=== PATIENT | male | born 1945 | race Caucasian/White ===

== ENCOUNTER 2020-03-30 06:39 | Outpatient (REF) | payer MEDICARE, SELFPAY ==
[2020-03-30 11:31] LABS: MANUAL DIFF FLAG NO
[2020-03-30 11:44] LABS: Basophils Absolute Auto 0.1 X10*3/uL (0.0-0.2); Basophils Percent Auto 1.9 % (0-2); Eosinophils Absolute Auto 0.5 X10*3/uL (0.0-0.4); Eosinophils Percent Auto 8.8 % (0-4); Hemoglobin 15.4 g/dl (14.0-18.0); Imm Gran Abs Auto 0.02 X10*3/uL (0.00-0.03); Imm Gran Pct Auto 0.3 % (0.0-0.4); Lymphocytes Absolute Auto 1.5 X10*3/uL (1.2-4.9); Mean Corpuscular HGB Conc 32.8 g/dl (31.0-36.0); Mean Corpuscular Volume 88.5 fL (80-98); Mean Platelet Volume 9.6 fL (9.4-12.4); Monocytes Absolute Auto 0.7 X10*3/uL (0.1-1.2); Monocytes Percent Auto 11.4 % (2-11); Neutrophils Percent Auto 51.6 % (45-73); Platelet Count 245 X10*3/uL (160-400); Red Blood Count 5.31 X10*6/uL (4.60-5.80); Red Cell Distribution Width 13.3 % (11.0-16.0); White Blood Count 5.8 X10*3/uL (4.8-10.8)
[2020-03-30 11:52] LABS: Estimated Average Glucose 120 mg/dL; Hemoglobin A1c % 5.8 %
[2020-03-30 11:53] LABS: Alanine Aminotransferase 22 U/L (0-40); Anion Gap 16 (12-20); Aspartate Amino Transferase 23 U/L (5-37); Blood Urea Nitrogen 28 mg/dL (9-16); Calcium 8.9 mg/dL (8.4-10.2); Carbon Dioxide 28 mmol/L (22-29); Chloride 98 mmol/L (96-108); Cholesterol 158 mg/dL; Estimated Glomerular Filt Rate 55; Glucose Fasting 94 mg/dL (60-99); HDL Cholesterol 49 mg/dL; LDL Cholesterol Calculated 73 mg/dl; Potassium 4.6 mmol/l (3.3-5.1); Sodium 137 mmol/L (135-145); Triglycerides 183 mg/dL
[2020-03-30 12:02] LABS: Glucose Urine UA NEG (NEG); Leukocyte Esterase Urine NEG (NEG); Nitrite Urine NEG (NEG); Specific Gravity - Urine 1.025 (1.005-1.025); Urine Blood NEG (NEG); Urine Ketones NEG (NEG); Urine Protein NEG (NEG-TRACE)
[2020-03-30 12:07] LABS: Appearance Urine CLEAR; Color Urine YELLOW; UACC CULT NO
[2020-03-30 12:13] LABS: Albumin Level 4.3 g/dL (3.5-5.0); Magnesium 2.1 mg/dL (1.6-2.6)
[2020-03-30 12:15] LABS: Vitamin D 25-OH Total 100.4 ng/mL (>30)
[2020-03-30 12:38] LABS: RBC Urine 0 /HPF (0); WBC Urine 0 /HPF (0-4)
[2020-03-30 12:40] LABS: Creatinine Urine 85.37 mg/dL; Creatinine Urine 85.83 mg/dL; Microalbumin Urine < 5.0 mg/L; Total Protein Urine Random < 7 mg/dL (<12)
[2020-03-30 14:19] LABS: Renal w Reflex Lab Use Only Order verified
[2020-03-30 14:27] LABS: Phosphorus 4.3 mg/dL (2.7-4.5)
[2020-03-31 17:52] LABS: Calcium (PTHI) 9.5 mg/dL (8.6-10.3); PTHI 18 pg/mL (14-64)
== END 2020-03-30 06:40 | disposition home or self-care (01) ==
LOC: HO.HMGCLDS 06:39
PROVIDERS: PCP Internal Medicine; Visit Provider Internal Medicine Nephrology
DX: E78.5 Hyperlipidemia, unspecified (principal); E66.09 Other obesity due to excess calories; Z68.30 Body mass index [BMI] 30.0-30.9, adult; E11.22 Type 2 diabetes mellitus with diabetic chronic kidney disease; I12.9 Hypertensive chronic kidney disease with stage 1 through stage 4 chronic kidney disease, or unspecified chronic kidney disease; N18.2 Chronic kidney disease, stage 2 (mild)
CPT/HCPCS: 36415; 80048; 80061; 81001; 82040; 82043; 82306; 83036; 83735; 83970; 84100; 84156; 84450; 84460; 85025

== ENCOUNTER 2020-10-26 06:26 | Outpatient (REF) | payer MEDICARE, SELFPAY ==
[2020-10-26 11:28] LABS: MANUAL DIFF FLAG NO
[2020-10-26 11:43] LABS: Basophils Absolute Auto 0.1 X10*3/uL (0.0-0.2); Basophils Percent Auto 1.6 % (0-2); Eosinophils Absolute Auto 0.2 X10*3/uL (0.0-0.4); Eosinophils Percent Auto 4.2 % (0-4); Hematocrit 44.6 % (42-52); Hemoglobin 14.6 g/dl (14.0-18.0); Imm Gran Abs Auto 0.04 X10*3/uL (0.00-0.03); Imm Gran Pct Auto 0.7 % (0.0-0.4); Lymphocytes Absolute Auto 1.8 X10*3/uL (1.2-4.9); Lymphocytes Percent Auto 31.8 % (20-40); Mean Corpuscular HGB Conc 32.7 g/dl (31.0-36.0); Mean Corpuscular Hemoglobin 29.4 pg (27.0-33.0); Mean Corpuscular Volume 89.7 fL (80-98); Mean Platelet Volume 9.7 fL (9.4-12.4); Monocytes Absolute Auto 0.7 X10*3/uL (0.1-1.2); Monocytes Percent Auto 12.9 % (2-11); Neutrophils Absolute Auto 2.8 X10*3/uL (2.0-8.3); Neutrophils Percent Auto 48.8 % (45-73); Platelet Count 284 X10*3/uL (160-400); Red Blood Count 4.97 X10*6/uL (4.60-5.80); Red Cell Distribution Width 13.5 % (11.0-16.0); White Blood Count 5.7 X10*3/uL (4.8-10.8)
[2020-10-26 12:12] LABS: Alanine Aminotransferase 34 U/L (0-40); Anion Gap 17 (12-20); Aspartate Amino Transferase 29 U/L (5-37); Blood Urea Nitrogen 22 mg/dL (9-16); Calcium 9.7 mg/dL (8.4-10.2); Carbon Dioxide 27 mmol/L (22-29); Chloride 99 mmol/L (96-108); Cholesterol 168 mg/dL; Estimated Glomerular Filt Rate > 60; Glucose Fasting 143 mg/dL (60-99); HDL Cholesterol 53 mg/dL; LDL Cholesterol Calculated 83 mg/dl; Potassium 4.7 mmol/L (3.3-5.1); Sodium 138 mmol/L (135-145); Triglycerides 161 mg/dL
[2020-10-26 12:31] LABS: Estimated Average Glucose 160 mg/dL; Hemoglobin A1c % 7.2 %
[2020-10-26 12:37] LABS: Creatinine Urine 104.61 mg/dL; Microalbum/Creatinine Ratio Ur 4.7 ug/mg cr
== END 2020-10-26 06:27 | disposition home or self-care (01) ==
LOC: HO.HMGCLDS 06:26
PROVIDERS: PCP Internal Medicine; Visit Provider Internal Medicine
DX: E11.9 Type 2 diabetes mellitus without complications (principal); I10 Essential (primary) hypertension; E78.5 Hyperlipidemia, unspecified
CPT/HCPCS: 36415; 80048; 80061; 82043; 83036; 84450; 84460; 85025

== ENCOUNTER 2021-05-10 06:58 | Outpatient (REF) | payer MEDICARE, SELFPAY ==
[2021-05-10 12:07] LABS: Alanine Aminotransferase 36 U/L (0-40); Anion Gap 15 (12-20); Aspartate Amino Transferase 33 U/L (5-37); Blood Urea Nitrogen 25 mg/dL (9-16); Calcium 9.7 mg/dL (8.4-10.2); Carbon Dioxide 28 mmol/L (22-29); Chloride 99 mmol/L (96-108); Cholesterol 164 mg/dL; Estimated Glomerular Filt Rate > 60; Glucose Fasting 106 mg/dL (60-99); HDL Cholesterol 51 mg/dL; LDL Cholesterol Calculated 83 mg/dl; Potassium 4.6 mmol/L (3.3-5.1); Sodium 137 mmol/L (135-145); Triglycerides 150 mg/dL
[2021-05-10 12:12] LABS: Estimated Average Glucose 157 mg/dL; Hemoglobin A1c % 7.1 %
[2021-05-10 12:24] LABS: Creatinine Urine 43.63 mg/dL; Microalbumin Urine < 5.0 mg/L
== END 2021-05-10 06:59 | disposition home or self-care (01) ==
LOC: HO.HMGCLDS 06:58
PROVIDERS: PCP Internal Medicine; Visit Provider Internal Medicine
DX: E11.9 Type 2 diabetes mellitus without complications (principal); E78.5 Hyperlipidemia, unspecified; I10 Essential (primary) hypertension
CPT/HCPCS: 36415; 80048; 80061; 82043; 83036; 84450; 84460

== ENCOUNTER 2021-08-16 06:54 | Outpatient (REF) | payer MEDICARE, SELFPAY ==
[2021-08-16 11:56] LABS: Alanine Aminotransferase 30 U/L (0-40); Anion Gap 16 (12-20); Aspartate Amino Transferase 28 U/L (5-37); Blood Urea Nitrogen 29 mg/dL (9-16); Calcium 9.7 mg/dL (8.4-10.2); Carbon Dioxide 25 mmol/L (22-29); Chloride 99 mmol/L (96-108); Cholesterol 152 mg/dL; Estimated Glomerular Filt Rate > 60; Glucose Fasting 128 mg/dL (60-99); HDL Cholesterol 54 mg/dL; LDL Cholesterol Calculated 76 mg/dl; Potassium 4.5 mmol/L (3.3-5.1); Sodium 135 mmol/L (135-145); Triglycerides 114 mg/dL
[2021-08-16 12:32] LABS: Microalbum/Creatinine Ratio Ur 11.9 ug/mg cr
== END 2021-08-16 06:55 | disposition home or self-care (01) ==
LOC: HO.HMGCLDS 06:54
PROVIDERS: Visit Provider Internal Medicine
DX: E78.5 Hyperlipidemia, unspecified (principal); I10 Essential (primary) hypertension; E11.9 Type 2 diabetes mellitus without complications
CPT/HCPCS: 36415; 80048; 80061; 82043; 84450; 84460

== ENCOUNTER 2021-10-14 15:00 | Outpatient (RCR) | payer MEDICARE, SELFPAY ==
--- NOTE | 2021-09-09 08:44 | MHC.PT.EP ---
[facility] [place] Office [place] Office [place] Office [address] Brayan Horan [address] [phone] F: [phone] F: [phone] F: [phone] F: [phone] Physical Therapy Plan of Care Date of Evaluation: Date of Surgery: Diagnosis: L thigh pain Assessment: Pt is a 76 y/o male who reports about 2 years of posterior l thigh pain is referred to PT for eval and treat of L posterior thigh strain of tenon, fascia or muscle resulting in decreased tolerance for ambulating, squatting, performing heavy HH chores, negotiating stairs and standing for duration secondary to increased hamstring muscle tissue tension, gait abnormality, painful L knee flexion manual muscle test, TTP of proximal medial HS group, possible detrimental exercise habit of extreme weight training of injured tissues (Pt reports single limb leg press of 260lbs), and pain. Pt is deemed an appropriate candidate to receive skilled PT in order to address his physical limitations to improve his functional ability. Frequency and Duration: The patient will be seen 2 x/ wk x 5 wks. Short Term Goals: Initiate HEP with evidence of compliance. Improve pain with ambulation to < 3/10 with ambulation; initial 5/10. Group Home Goals: I with HEP. Pt will be able to walk 2 blocks with at most moderate difficulty; initial: extreme difficulty or inability to perform. Improve LEFI outcome measure by at least 9 points in order to demonstrate meaningful improvement. Treatment Plan: Modalities to reduce pain, spasms and effusion. Manual therapy to restore motion and function. Therapeutic exercise to improve strength and flexibility. Neuromuscular re-education for posture and balance. Therapeutic activities to return to functional activities of daily living. Electronically signed by: Gavin Novak PT. Please sign and return to therapist. Thank you for your referral.
--- NOTE | 2021-10-14 17:01 | MHC.PT.DC ---
[facility] [place] [facility] [place] Office [place] [facility] [address] Brayan Horan [address] [phone] F: [phone] F: [phone] F: [phone] F: [phone] Physical Therapy Discharge Report Diagnosis: L thigh pain Date of Surgery: Date of Evaluation: 09/08/21 Date of Discharge: 10/14/21 Treatments to Date: 10 Cancellations to Date: No Shows to Date: Discharge Status: Recommend MD Follow-up Discharge Summary: Tobin has been an active participant in his therapy with good attendance and program independence; although his outcome measure demonstrates improved overall function he has not improved his tolerance for walking and standing for this condition with this point of care with L leg pain persisting and is recommended to f/u with his MD. Electronically signed by: Gavin Novak PT. Please sign and return to therapist. Thank you for your referral.
== END 2021-10-14 17:01 | disposition home or self-care (01) ==
LOC: HO.PTCHIC 15:00
PROVIDERS: PCP Internal Medicine; Visit Provider Internal Medicine
DX: S76.312A Strain of muscle, fascia and tendon of the posterior muscle group at thigh level, left thigh, initial encounter (principal)
CPT/HCPCS: 97110; 97112; 97140; 97162

== ENCOUNTER 2022-01-17 06:19 | Outpatient (REF) | payer MEDICARE, SELFPAY ==
[2022-01-17 11:49] LABS: Estimated Average Glucose 128 mg/dL; Hemoglobin A1c % 6.1 %
[2022-01-17 12:10] LABS: Alanine Aminotransferase 22 U/L (0-40); Anion Gap 16 (12-20); Aspartate Amino Transferase 23 U/L (5-37); Blood Urea Nitrogen 32 mg/dL (9-16); Calcium 9.4 mg/dL (8.4-10.2); Carbon Dioxide 26 mmol/L (22-29); Chloride 102 mmol/L (96-108); Cholesterol 159 mg/dL; Estimated Glomerular Filt Rate > 60; Glucose Fasting 129 mg/dL (60-99); HDL Cholesterol 48 mg/dL; LDL Cholesterol Calculated 70 mg/dl; Sodium 140 mmol/L (135-145); Triglycerides 208 mg/dL
[2022-01-17 12:16] LABS: Vitamin D 25-OH Total 83.4 ng/mL (>30)
[2022-01-17 12:17] LABS: Folate 18.3 ng/mL (> or = 4.0); Vitamin B12 1131 pg/mL (200-900)
== END 2022-01-17 06:20 | disposition home or self-care (01) ==
LOC: HO.HMGCLDS 06:19
PROVIDERS: PCP Internal Medicine; Visit Provider Internal Medicine
DX: E11.9 Type 2 diabetes mellitus without complications (principal); E78.5 Hyperlipidemia, unspecified; I10 Essential (primary) hypertension
CPT/HCPCS: 36415; 80048; 80061; 82306; 82607; 82746; 83036; 84450; 84460

== ENCOUNTER 2022-07-27 07:04 | Outpatient (REF) | payer MEDICARE, SELFPAY ==
[2022-07-27 12:07] LABS: Estimated Average Glucose 134 mg/dL; Hemoglobin A1c % 6.3 %
[2022-07-27 12:16] LABS: Alanine Aminotransferase 30 U/L (0-40); Anion Gap 14 (12-20); Aspartate Amino Transferase 27 U/L (5-37); Blood Urea Nitrogen 26 mg/dL (9-16); Calcium 9.6 mg/dL (8.4-10.2); Carbon Dioxide 28 mmol/L (22-29); Chloride 99 mmol/L (96-108); Cholesterol 169 mg/dL; Estimated Glomerular Filt Rate > 60; Glucose Fasting 147 mg/dL (60-99); HDL Cholesterol 52 mg/dL; LDL Cholesterol Calculated 89 mg/dl; Potassium 4.4 mmol/L (3.3-5.1); Sodium 137 mmol/L (135-145); Triglycerides 142 mg/dL
[2022-07-27 12:26] LABS: Creatinine Urine 78.33 mg/dL; Microalbumin Urine < 5.0 mg/L
[2022-07-27 12:28] LABS: Folate 15.3 ng/mL (> or = 4.0); Vitamin B12 > 2000 pg/mL (200-900)
== END 2022-07-27 07:05 | disposition home or self-care (01) ==
LOC: HO.HMGCLDS 07:04
PROVIDERS: PCP Internal Medicine; Visit Provider Internal Medicine
DX: E78.5 Hyperlipidemia, unspecified (principal); I10 Essential (primary) hypertension; E11.9 Type 2 diabetes mellitus without complications; R74.8 Abnormal levels of other serum enzymes; Z12.5 Encounter for screening for malignant neoplasm of prostate
CPT/HCPCS: 36415; 80048; 80061; 82043; 82607; 82746; 83036; 84153; 84450; 84460

== ENCOUNTER 2023-01-04 07:01 | Outpatient (REF) | payer MEDICARE, SELFPAY ==
[2023-01-04 12:11] LABS: Estimated Average Glucose 151 mg/dL; Hemoglobin A1c % 6.9 %
[2023-01-04 12:29] LABS: Alanine Aminotransferase 34 U/L (0-40); Anion Gap 14 (12-20); Aspartate Amino Transferase 31 U/L (5-37); Blood Urea Nitrogen 25 mg/dL (9-16); Calcium 9.4 mg/dL (8.4-10.2); Carbon Dioxide 26 mmol/L (22-29); Chloride 102 mmol/L (96-108); Cholesterol 151 mg/dL; Estimated Glomerular Filt Rate > 60; Glucose Fasting 122 mg/dL (60-99); HDL Cholesterol 52 mg/dL; LDL Cholesterol Calculated 67 mg/dl; Potassium 4.4 mmol/L (3.3-5.1); Sodium 138 mmol/L (135-145); Triglycerides 164 mg/dL
[2023-01-04 13:07] LABS: Folate 13.9 ng/mL (> or = 4.0); Vitamin B12 945 pg/mL (200-900)
== END 2023-01-04 07:02 | disposition home or self-care (01) ==
LOC: HO.HMGCLDS 07:01
PROVIDERS: PCP Internal Medicine; Visit Provider Internal Medicine
DX: I10 Essential (primary) hypertension (principal); R74.8 Abnormal levels of other serum enzymes; E11.9 Type 2 diabetes mellitus without complications
CPT/HCPCS: 36415; 80048; 80061; 82607; 82746; 83036; 84450; 84460

== ENCOUNTER 2023-01-11 10:29 | Outpatient (AMB) | payer MEDICARE, SELFPAY ==
--- NOTE | 2023-01-11 10:32 | A.OFFPC_ITS ---
Vital Signs 01/11/23 10:34 Height 5 ft 11 in Weight 226 lb BMI 31.5 BP 112/74 Blood Pressure Location Lt brachial Position Sitting Pulse 69 Pulse Source Pulse Oximeter Pulse Oximetry (%) 97 Oxygen Delivery Method Room Air Intake Visit Reasons: AWV G038 dm , lipids . htn Intake Note: Patient here to follow up on Diabetes, lipids and htn. Allergies No Known Allergies Allergy (Verified 01/11/23 10:35) Tobacco use date assessed: 08/09/22 Fall risk assessment: No Falls in past year Last assessed Fall Risk: 01/11/23 Dental Screening Dental Screen Date: 01/11/23 Did you have a dental visit in the last 12 months?: No Did you have a dental problem in the last 6 months where you did not have access to dental care?: No Was dental information given to patient?: Patient declined [facility] Medical History (Updated 08/09/22 @ 23:37 by Nubia Gray MD) Arthralgia Dyslipidemia Eczema Essential hypertension Left hamstring muscle strain Osteoarthritis of left hip Type 2 diabetes mellitus without complication, without long-term current use of insulin Surgical History H/O shoulder replacement History of cataract surgery History of total hip replacement Family History Father Smoker Emphysema, unspecified Mother HTN (hypertension) Diabetes mellitus Cancer Brother Diabetes mellitus Social History Housing: House Alcohol intake: current Patient Tobacco Use Status: Never used Tobacco e-Cigarette/Vaping Use: Never Used service: No Current occupational status: retired Cognitive needs: No Hearing needs: No Vision needs: No Questionnaire Thrive Questionnaire Date Thrive assessed: 08/09/22 SHIRA-7 AMB Questionnaire SHIRA-7 Date SHIRA - 7 assessed: 08/09/22 Source: Developed by Drs. Unruly Figueroa, Mey Ramírez, John Wagner and colleagues, with an educational christina from [employer]. Physical exam (Primary Care) Vital Signs: Last Vital Signs Pulse 69 01/11/23 10:34 BP 112/74 01/11/23 10:34 Pulse Ox 97 01/11/23 10:34 Oxygen Delivery Method Room Air 01/11/23 10:34 BMI result Body Mass Index 31.5 Tobacco/Smoking Status: Tobacco use Status Tobacco use date assessed 08/09/22 01/11/23 10:37 Patient Tobacco Use Status Never used Tobacco 01/11/23 10:37 e-Cigarette/Vaping Use Never Used 01/11/23 10:37 Thrive Assessment: Date of Thrive Assessment Date Thrive assessed 08/09/22 01/11/23 10:37 Coding Diagnoses
[2023-01-11 10:34] VITALS: BP 112/74; PULSE 69; O2SAT 97; BMI 31.5
--- NOTE | 2023-01-11 10:38 | A.OFFVIS_ITS ---
Intake Vital Signs 01/11/23 10:34 01/11/23 10:41 Height 5 ft 11 in Weight 226 lb BMI 31.5 31.5 BP 112/74 Blood Pressure Location Lt brachial Position Sitting Pulse 69 Pulse Source Pulse Oximeter Pulse Oximetry (%) 97 Oxygen Delivery Method Room Air Intake Visit Reasons: AWV G038 dm , lipids . htn Allergies No Known Allergies Allergy (Verified 01/11/23 11:11) Medication List - Last Reconciled 01/11/23 by Nubia Gray MD blood sugar diagnostic (FreeStyle Lite Strips) check fasting blood sugar once a day blood-glucose meter (FreeStyle Lite Meter kit) check fasting blood sugar once a day ferrous fumarate PO lancets As directed lancets (Accu-Chek Fastclix Lancet Drum) Check blood sugar 3 times a day as directed losartan 100 mg PO DAILY metformin 1,000 mg PO BID metoprolol tartrate 100 mg PO DAILY rosuvastatin 5 mg PO 2XW 90 days semaglutide (Ozempic) 0.5 mg subcut QWEEK spironolactone 25 mg PO DAILY HPI AWV G038 dm , lipids . htn HPI Details AWV ? 77 year old male presents for his initial annual wellness visit. He has history of diabetes mellitus, hypertension, dyslipidemia and osteoarthritis He is up-to-date with his screening for lipids and last check was done 01/04/2023, last diabetes mellitus follow-up showed a hemoglobin A1c at 6 .9% la 01/04/2023. He is due for his screening colonoscopy, last done 11/19/2019 with removal of a tubular adenoma. He goes to [facility] for his diabetes retinopathy screening and regular echo eye exam, last done 03/10/2022 with no retinopathy seen. He is up-to-date with his prostate cancer screening, last done July 27 with normal PSA result. Up-to-date with his record 8 yearly flu shots, Tdap, Prevnar 13 and Shingrix vaccination, due for his Prevnar 20. ? Medical / Social History Reviewed? Past Medical History ?Yes . ? [place] of Care / Care Team list updated ?Yes . ? Surgical/Hospitalization History ?Yes . ? Current Medications (including OTC and supplements) ?Yes . ? Family History ?Yes . ? Tobacco Control form ?Yes . ? AUDIT-C (Alcohol use) form ?Yes . ? Illicit drug use in Social History ?Yes . ? Current diagnosis of depression? ?No ? Appropriate PHQ2/PHQ9 completed ?Yes . ? Data entered by ?Christian Education Director and reviewed by provider ? Fall Risk ? Fall History? Have you had any falls with injury in the past year? ?No . ? Have you had two or more falls in the past year? ?No . ? Fall Risk Assessment: ?No falls in the past year . ? HRA filled out by the patient, reviewed by Provider and scanned. ?AWV ? Balance? Romberg ?Yes . ? Tandem walk ?unable due to pain in his right thigh. ? Walk and Turn ?Yes . ? Rise from sit to stand ?Yes . ?Vision? Corrective lens ?Yes ? Vision screen ? Up-to-date, sees Dr. Fowler ?Hearing? Whisper test ?pass . ?Written Plan?Completed. See Patient Documents.? [facility] Medical History Arthralgia Dyslipidemia Eczema Essential hypertension Left hamstring muscle strain Osteoarthritis of left hip Type 2 diabetes mellitus without complication, without long-term current use of insulin Surgical History H/O shoulder replacement History of cataract surgery History of total hip replacement Family History Father Smoker Emphysema, unspecified Mother HTN (hypertension) Diabetes mellitus Cancer Brother Diabetes mellitus Social History Housing: House Alcohol intake: current Patient Tobacco Use Status: Never used Tobacco e-Cigarette/Vaping Use: Never Used service: No Current occupational status: retired Cognitive needs: No Hearing needs: No Vision needs: No Questionnaire Medicare Wellness Checkup [age] What gender do you identify with?: male During the past 4 weeks, how much have you been bothered by emotional problems such as feeling anxious, depressed, irritable, sad or downhearted, and blue?: moderately During the past 4 weeks, has your physical & emotional health limited your social activities with family, friends, neighbors, or groups?: not at all During the past 4 weeks, how much bodily pain have you generally had?: moderate pain During the past 4 weeks, was someone available to help you if you needed & wanted help?: yes, some During the past 4 weeks, what was the hardest physical activity you could do for at least 2 minutes?: moderate Can you get to places out of walking distance without help? (For eg., can you travel alone on buses, taxis or drive your car?): Yes Can you go shopping for groceries or clothes without someone's help?: Yes Can you prepare your own meals?: Yes Can you do your housework without help?: Yes Because of any health problems, do you need the help of another person with your personal care needs such as eating, bathing, dressing or getting around the house?: No Can you handle your own money without help?: Yes During the past 4 weeks, how would you rate your health in general?: good During the past 4 weeks how have things been going for you?: good & bad parts about equal Are you having difficulties driving your car?: no Do you always fasten your seat belt when you are in a car?: yes, usually During past 4 weeks, have you been bothered by the following: never: Falling or dizzy when standing up, Sexual problems? and Problems using the telephone?, seldom: Teeth or denture problems? and Tiredness or fatigue? and often: Trouble eating well? Have you fallen 2 or more times in the past year?: No Are you afraid of falling?: Yes Are you a smoker?: no During the past 4 weeks, how many drinks of wine, beer, or other alcoholic beverages did you have?: 1 drink or less per week Do you exercise for about 20 minutes 3 or more times a week?: yes, most of the time Have you been given information to help with the following?: yes: Keeping track of your medications? and no: Hazards in your house that might hurt you? How often do you have trouble taking medicines the way you have been told to take them?: I always take medicine as prescribed How confident are you that you can control & manage most of your health problems?: somewhat confident What is your race?: White Mini Mental State Exam (MMSE) Orientation What is the (year) (season) (date) (day) (month)?: year (2022), season (Summer), date (01/11/2023), day () and month (December) Where are we (state) (county) (town or city) (hospital) (floor)?: state ([place]), county ([place]), town or city ([place]) and hospital/clinic ([facility]) Score Score: 9 Activity of Daily Living Bathing - sponge bath, tub bath or shower: receives no assistance (gets in/out by self, if usual bathing means Dressing - getting clothes from closets & drawers, including inner/outer garments & fasteners.: gets clothes & gets completely dressed without help Toileting - going to the 'toilet room' for urine/bowel elimination & cleaning self/arranging clothes: goes to toilet room, cleans self, arranges clothes without help Transfer: moves in & out of bed and chair without help (may use support object) Continence: controls urination/bowel movements completely by self Feeding: feeds self without help Total Score: 0 Information obtained from: patient Using telephone: independent Traveling: independent Shopping: independent Preparing meals: independent Housework: independent Taking medicine: independent Managing money: independent PHQ-9 Over the last 2 weeks, how often have you been bothered by any of the following problems? 1. Little interest or pleasure in doing things: several days 2. Feeling down, depressed, or hopeless: not at all 3. Trouble falling or staying asleep, or sleeping too much: more than half the days 4. Feeling tired or having little energy: several days 5. Poor appetite or overeating: not at all 6. Feeling bad about yourself - or that you are a failure or have let yourself or your family down: not at all 7. Trouble concentrating on things, such as reading the newspaper or watching television: not at all 8. Moving or speaking so slowly that other people could have noticed. Or the opposite - being so fidgety or restless that you have been moving around a lot more than usual: not at all 9. Thoughts that you would be better off or of hurting yourself in some way: not at all Total score: 4 Depression Screening Interpretation: Negative 48715 - PHQ-9 Billing: Yes Source: Developed by Drs. Unruly Figueroa, Mey Ramírez, John Wagner and colleagues, with an educational christina from [employer]. Physical Exam Vital Signs: Last Vital Signs Pulse 69 01/11/23 10:34 BP 112/74 01/11/23 10:34 Pulse Ox 97 01/11/23 10:34 Oxygen Delivery Method Room Air 01/11/23 10:34 BMI result Body Mass Index 31.5 Immunizations pneumoc 20-leanne conj-dip cr(PF) Performing Provider: Nubia Gray MD Administered by: Toña Rhodes CMA on 01/11/23 11:37 Dose Route Admin Location Lot Number Expiration Date NDC Inspector Screen Printing 0.5 mL IM Left Deltoid [id number] 03/26/24 [id number] [employer] VIS Given Date VIS Provided VIS Publication Date 01/11/23 Single Vaccine 21 Eligibility Eligibility Date Funding Source Not [facility] [place] E[place]ible 01/11/23 Private Assessment & Plan Assessment & Plan (1) Encounter for annual wellness visit (AWV) in Medicare patient: Code(s): Z00.00 - Encounter for general adult medical examination without abnormal findings Plan: Medical wellness checklist discussed with patient, reviewed and updated, copy given. Reminded to get his COVID booster in given Prevnar 20 vaccine today. Referred back to Dr. Pimentel for his repeat colonoscopy (2) Type 2 diabetes mellitus without complication, without long-term current use of insulin: Code(s): E11.9 - Type 2 diabetes mellitus without complications Plan: Hemoglobin A1c today is at 6.9%, continued on Ozempic, metformin. (3) Essential hypertension: Comment: ff'd by dr madsen Code(s): I10 - Essential (primary) hypertension Plan: Continued on losartan, metoprolol tartrate and spironolactone (4) Dyslipidemia: Code(s): E78.5 - Hyperlipidemia, unspecified Plan: Currently on rosuvastatin 5 mg taken twice a week only with fasting lipids within normal limits (5) Osteoarthritis of left hip: Code(s): M16.12 - Unilateral primary osteoarthritis, left hip [facility] (6) Advanced directives, counseling/discussion: Code(s): Z71.89 - Other specified counseling Plan: Initiated the conversation about Advanced Directives. Advanced Directives help patients prepare for current and future decisions about their medical treatment and place of care. Discussed with patient that it is a process where a patients current condition and prognosis are reviewed, their wishes for information regarding their illness are elicited, and likely medical dilemmas are presented and options discussed. MOLST form and healthcare proxy form completed today. These forms can be amended as needed, reviewed yearly and make changes as needed Orders: Orders Pneumococcal 20 Immunization Today Z23 - Encounter for immunization Quality Reporting (2019) Depression/Bipolar (159/160/161/177) PHQ-9: Total score: 4 Coding Level of Care Code Medicare First (G0438) Diagnoses Encounter for annual wellness visit (AWV) in Medicare patient Z00.00 Type 2 diabetes mellitus without complication, without long-term current use of insulin E11.9 Essential hypertension I10 Dyslipidemia E78.5 Osteoarthritis of left hip M16.12 Advanced directives, counseling/discussion Z71.89 CPT Codes Advance Care Planning - Time spent: 16-45 minutes ([id number]) Advance Care Planning Advance Care Planning discussion: Completed/Scanned Date of discussion: 01/11/23 Who was present: Patient Forms completed: Health Care Proxy and MOLST Time spent: 16-45 minutes Actual minutes spent: 16
[2023-01-11 10:41] VITALS: BMI 31.5
== END 2023-01-11 11:42 | disposition home or self-care (01) ==
PROVIDERS: Visit Provider Internal Medicine
DX: Z00.00 Encounter for general adult medical examination without abnormal findings (principal); E11.9 Type 2 diabetes mellitus without complications; I10 Essential (primary) hypertension; Z23 Encounter for immunization; E78.5 Hyperlipidemia, unspecified; M16.12 Unilateral primary osteoarthritis, left hip; Z71.89 Other specified counseling
CPT/HCPCS: 90471; 90677; 99497; G0438

== ENCOUNTER 2023-02-15 11:44 | Outpatient (REF) | payer MEDICARE, SELFPAY ==
--- NOTE | ~2023-02-15 | XR_ITS ---
EXAMINATION: XR AP STANDING VIEW BOTH KNEES. XR KNEE, RIGHT CLINICAL INFORMATION: Right knee pain COMPARISON: None. TECHNIQUE: AP standing view both knees. Lateral and sunrise views of the right knee. FINDINGS: Moderate patellofemoral and lateral compartment osteoarthritis of the right knee with narrowing and marginal osteophytes. No significant joint effusion. No fracture or focal osseous lesion. AP view of the left knee is unremarkable. Diffuse vascular calcifications are noted. XR/XR knee RT 2V IMPRESSION: Moderate patellofemoral and lateral compartment osteoarthritis of the right knee. No acute osseous abnormality.
--- NOTE | ~2023-02-15 | XR_ITS ---
EXAMINATION: XR AP STANDING VIEW BOTH KNEES. XR KNEE, RIGHT CLINICAL INFORMATION: Right knee pain COMPARISON: None. TECHNIQUE: AP standing view both knees. Lateral and sunrise views of the right knee. FINDINGS: Moderate patellofemoral and lateral compartment osteoarthritis of the right knee with narrowing and marginal osteophytes. No significant joint effusion. No fracture or focal osseous lesion. AP view of the left knee is unremarkable. Diffuse vascular calcifications are noted. XR/XR knee standing BI IMPRESSION: Moderate patellofemoral and lateral compartment osteoarthritis of the right knee. No acute osseous abnormality.
== END 2023-02-15 11:45 | disposition home or self-care (01) ==
LOC: HO.HOSX 11:44
PROVIDERS: Visit Provider Orthopaedic Surgery
DX: M17.11 Unilateral primary osteoarthritis, right knee (principal); E11.9 Type 2 diabetes mellitus without complications
CPT/HCPCS: 20610; 73560; 73565; 99212

== ENCOUNTER 2023-02-15 13:40 | Outpatient (AMB) | payer MEDICARE, SELFPAY ==
--- NOTE | 2023-02-15 13:58 | MHC.OFFVIS ---
Intake Intake Visit Reasons: Newprob-Right knee pain Intake Note: Tobin is a 77 year old male who presents today for a new problem visit with complaints of right knee pain. Patient reprots that he has had right knee clicking for about 6 months now. He explains that when he stretches the knee out he gets pain in the groin. Allergies No Known Allergies Allergy (Verified 01/11/23 11:11) HPI Newprob-Right knee pain HPI Details Right knee pain. Off and on for months. He is extremely active and enjoys daily exercise. He denies any specific injury to his right knee. [facility] Medical History (Updated 02/26/23 @ 15:11 by Luis Fernando Land MD) Left hamstring muscle strain Arthralgia Osteoarthritis of left hip Dyslipidemia Eczema Essential hypertension Type 2 diabetes mellitus without complication, without long-term current use of insulin Surgical History (Updated 02/15/23 @ 14:00 by Karen Bragg CMA) History of cataract surgery H/O shoulder replacement History of total hip replacement Family History Father Smoker Emphysema, unspecified Mother HTN (hypertension) Diabetes mellitus Cancer Brother Diabetes mellitus Social History Housing: House Alcohol intake: current Patient Tobacco Use Status: Never used Tobacco e-Cigarette/Vaping Use: Never Used service: No Current occupational status: retired Cognitive needs: No Hearing needs: No Vision needs: No Physical Exam Extrem Other: Medial compartment ttp neg steinmen's 5-125 deg motion Office Procedures Joint Injection/Drain Joint Injection/Drain Details: Injected 1 mL of Decadron and 3 mL 1% lidocaine and 3 mL of 0.25% Marcaine. Site was prepped using aseptic technique. Patient tolerated the procedure well. Primary Site: right knee Approach Used: anterolateral Coding 28361 - Large joint Procedure code (CPT) selection complete Results Reviewed Results Reviewed: I personally reviewed relevant radiographs. moderate to servere right knee OA Assessment & Plan Assessment & Plan (1) Arthritis of right knee: Code(s): M17.11 - Unilateral primary osteoarthritis, right knee Plan: Injected right knee. May continue activity as tolerated (2) Type 2 diabetes mellitus without complication, without long-term current use of insulin: Code(s): E11.9 - Type 2 diabetes mellitus without complications Plan: Informed of hyperglycemic effects of steroids Orders: Orders XR knee standing BI 02/15/23 M25.569 - Pain in unspecified knee XR knee RT 2V 02/15/23 M25.569 - Pain in unspecified knee Coding Level of Care Code Est Pt Level 3 (85072) Diagnoses Arthritis of right knee M17.11 Type 2 diabetes mellitus without complication, without long-term current use of insulin E11.9 CPT Codes Coding - 20320 Large joint: 58242 - Large joint ([id number])
== END 2023-02-15 14:36 | disposition home or self-care (01) ==
PROVIDERS: PCP Internal Medicine; Visit Provider Orthopaedic Surgery
DX: M17.11 Unilateral primary osteoarthritis, right knee (principal); E11.9 Type 2 diabetes mellitus without complications
CPT/HCPCS: 20610; 99213

== ENCOUNTER 2023-04-12 06:58 | Outpatient (REF) | payer MEDICARE, SELFPAY ==
[2023-04-12 11:07] LABS: MANUAL DIFF FLAG NO
[2023-04-12 11:10] LABS: Basophils Absolute Auto 0.1 X10*3/uL (0.0-0.2); Basophils Percent Auto 1.4 % (0-2); Eosinophils Absolute Auto 0.3 X10*3/uL (0.0-0.4); Hematocrit 42.4 % (42.0-52.0); Hemoglobin 13.7 g/dl (14.0-18.0); Imm Gran Abs Auto 0.04 X10*3/uL (0.00-0.03); Imm Gran Pct Auto 0.6 % (0.0-0.4); Lymphocytes Absolute Auto 1.6 X10*3/uL (1.2-4.9); Lymphocytes Percent Auto 24.4 % (20-40); Mean Corpuscular HGB Conc 32.3 g/dl (31.0-36.0); Mean Corpuscular Hemoglobin 29.4 pg (27.0-33.0); Mean Platelet Volume 9.7 fL (9.4-12.4); Monocytes Absolute Auto 0.8 X10*3/uL (0.1-1.2); Monocytes Percent Auto 12.8 % (2-11); Neutrophils Absolute Auto 3.5 x10*3/uL (2.0-8.3); Neutrophils Percent Auto 55.8 % (45-73); Platelet Count 298 X10*3/uL (160-400); Red Blood Count 4.66 X10*6/uL (4.60-5.80); Red Cell Distribution Width 13.7 % (11.0-16.0); White Blood Count 6.3 X10*3/uL (4.8-10.8)
[2023-04-12 11:22] LABS: Estimated Average Glucose 154 mg/dL
[2023-04-12 11:41] LABS: Alanine Aminotransferase 102 U/L (0-40); Anion Gap 12 (12-20); Aspartate Amino Transferase 86 U/L (5-37); Blood Urea Nitrogen 26 mg/dL (9-16); Calcium 9.7 mg/dL (8.4-10.2); Carbon Dioxide 30 mmol/L (22-29); Chloride 99 mmol/L (96-108); Cholesterol 153 mg/dL (<200); Estimated Glomerular Filt Rate > 60; Glucose Fasting 142 mg/dL (60-99); HDL Cholesterol 50 mg/dL (>40); LDL Cholesterol Calculated 68 mg/dL (<100); Potassium 4.4 mmol/L (3.3-5.1); Sodium 137 mmol/L (135-145); Triglycerides 177 mg/dL (<150)
[2023-04-12 11:51] LABS: Microalbumin Urine < 5.0 mg/L
[2023-04-12 12:00] LABS: Vitamin D 25-OH Total 72.9 ng/mL (>30)
[2023-04-12 12:02] LABS: Vitamin B12 1018 pg/mL (200-900)
== END 2023-04-12 06:59 | disposition home or self-care (01) ==
LOC: HO.HMGCLDS 06:58
PROVIDERS: PCP Internal Medicine; Visit Provider Internal Medicine
DX: E78.5 Hyperlipidemia, unspecified (principal); I10 Essential (primary) hypertension; E11.9 Type 2 diabetes mellitus without complications; Z86.2 Personal history of diseases of the blood and blood-forming organs and certain disorders involving the immune mechanism; Z86.39 Personal history of other endocrine, nutritional and metabolic disease
CPT/HCPCS: 36415; 80048; 80061; 82306; 82570; 82607; 82746; 83036; 84450; 84460; 85025

== ENCOUNTER 2023-04-12 13:18 | Outpatient (AMB) | payer MEDICARE, SELFPAY ==
[2023-04-12 13:23] VITALS: BP 100/68; PULSE 93; O2SAT 100; BMI 31.3
--- NOTE | 2023-04-12 13:23 | A.OFFPC_ITS ---
<Statement entered by Nubia Gray MD - 06/28/25 23:47> This note has been administratively?closed. Vital Signs 04/12/23 13:23 Height 5 ft 11 in Weight 224 lb 6 oz BMI 31.3 BP 100/68 Blood Pressure Location Rt brachial Position Sitting Pulse 93 Pulse Source Pulse Oximeter Pulse Oximetry (%) 100 Oxygen Delivery Method Room Air Intake Visit Reasons: 3 Month follow up Intake Note: pt is here to follow up for lab results Allergies No Known Allergies Allergy (Verified 06/17/25 12:00) Medication List - Last Reconciled 04/12/23 by Nubia Gray MD blood sugar diagnostic (FreeStyle Lite Strips) check fasting blood sugar once a day blood-glucose meter (FreeStyle Lite Meter kit) check fasting blood sugar once a day lancets As directed lancets (Accu-Chek Fastclix Lancet Drum) Check blood sugar 3 times a day as directed losartan 100 mg PO DAILY metformin 1,000 mg PO BID metoprolol tartrate 100 mg PO DAILY mupirocin 2% 1 appl topical TID rosuvastatin 5 mg PO 2XW 90 days semaglutide (Ozempic) 1 mg subcut QWEEK spironolactone 25 mg PO DAILY triamcinolone acetonide 0.025% topical Tobacco use date assessed: 04/12/23 Fall risk assessment: No Falls in past year Last assessed Fall Risk: 04/12/23 Dental Screening Dental Screen Date: 04/12/23 Did you have a dental visit in the last 12 months?: No Did you have a dental problem in the last 6 months where you did not have access to dental care?: No Was dental information given to patient?: Patient has dentist [facility] Medical History Decreased glomerular filtration rate (GFR) Elevated serum creatinine Ulcer of left heel Chronic ulcer of buttock Hx of adenomatous polyp of colon Tinea unguium Anemia Elevated vitamin B12 level Osteoarthritis of left hip Dyslipidemia Eczema Essential hypertension Type 2 diabetes mellitus without complication, without long-term current use of insulin Surgical History Hx of colonoscopy History of cataract surgery H/O shoulder replacement History of total hip replacement Family History Father Smoker Emphysema, unspecified Mother HTN (hypertension) Diabetes mellitus Cancer Brother Diabetes mellitus Social History Housing: House Are you a primary career development consultant to a significant other at home: No Do you presently have visiting nurse or other home services: No Alcohol intake: current Patient Tobacco Use Status: Never used Tobacco e-Cigarette/Vaping Use: Never Used service: No Current occupational status: retired Cognitive needs: No Hearing needs: No Vision needs: No Questionnaire Thrive Questionnaire Date Thrive assessed: 08/09/22 SHIRA-7 AMB Questionnaire SHIRA-7 Date SHIRA - 7 assessed: 08/09/22 Source: Developed by Drs. Unruly Figueroa, Mey Ramírez, John Wagner and colleagues, with an educational christina from [employer]. Physical exam (Primary Care) Vital Signs: Last Vital Signs Pulse 93 04/12/23 13:23 BP 100/68 04/12/23 13:23 Pulse Ox 100 04/12/23 13:23 Oxygen Delivery Method Room Air 04/12/23 13:23 BMI result Body Mass Index 31.3 Tobacco/Smoking Status: Tobacco use Status Tobacco use date assessed 04/12/23 04/12/23 13:30 Patient Tobacco Use Status Never used Tobacco 04/12/23 13:27 e-Cigarette/Vaping Use Never Used 04/12/23 13:27 Thrive Assessment: Date of Thrive Assessment Date Thrive assessed 08/09/22 04/12/23 13:27 Results Reviewed Results Reviewed: Name: Tobin Bey Age/Sex: 77/M : 1945 Unit#: [id number] Attend Dr: Nubia Gray MD Re04/12/23 Status: REG REF Location: [facility] Disch: SPEC : [id number] UZMA: 04/12/23 STATUS: COMP REQ : [id number] RECD: 04/12/[address]: Nubia Gray MD COMP: 04/12/23 ENTERED: 04/12/23 [facility] : ORDERED: CBC Auto Diff Test Result Flag Reference Site WBC 6.3 4.8-10.8 X10*3/uL RBC 4.66 4.60-5.80 X10*6/uL HGB 13.7 L 14.0-18.0 g/dl HCT 42.4 42.0-52.0 % MCV 91.0 80.0-98.0 fL MCH 29.4 27.0-33.0 pg MCHC 32.3 31.0-36.0 g/dl RDW 13.7 11.0-16.0 % PLT 298 160-400 X10*3/uL Coding Level of Care Code Admin Sign Off/No Billing Diagnoses Dyslipidemia E78.5 Essential hypertension I10 Type 2 diabetes mellitus without complication, without long-term current use of insulin E11.9
== END 2023-04-12 14:16 | disposition home or self-care (01) ==
PROVIDERS: PCP Internal Medicine; Visit Provider Internal Medicine
DX: E78.5 Hyperlipidemia, unspecified (principal); I10 Essential (primary) hypertension; E11.9 Type 2 diabetes mellitus without complications
CPT/HCPCS: 99499

== ENCOUNTER 2023-05-08 09:05 | Outpatient (AMB) | payer MEDICARE, SELFPAY ==
[2023-05-08 09:17] VITALS: BP 132/80; PULSE 84; O2SAT 97; BMI 31.0
--- NOTE | 2023-05-08 09:17 | A.OFFPC_ITS ---
Vital Signs 05/08/23 09:17 Height 5 ft 11 in Weight 222 lb 4 oz BMI 31.0 BP 132/80 Blood Pressure Location Rt brachial Position Sitting Pulse 84 Pulse Source Pulse Oximeter Pulse Oximetry (%) 97 Oxygen Delivery Method Room Air Intake Visit Reasons: Unable to apply pressure on right leg Intake Note: Pt is here for upper right leg pain that started that progressed for the past 4 months but got real bad over the past few days and pt has a hard time to bear weight pt says he has not noticed any swelling or redness but has swelling at the knees Allergies No Known Allergies Allergy (Verified 05/08/23 22:35) Medication List - Last Reconciled 05/08/23 by Nubia Gray MD blood sugar diagnostic (FreeStyle Lite Strips) check fasting blood sugar once a day blood-glucose meter (FreeStyle Lite Meter kit) check fasting blood sugar once a day lancets As directed lancets (Accu-Chek Fastclix Lancet Drum) Check blood sugar 3 times a day as directed losartan 100 mg PO DAILY metformin 1,000 mg PO BID metoprolol tartrate 100 mg PO DAILY mupirocin 2% 1 appl topical TID nabumetone 500 mg PO BID PRN rosuvastatin 5 mg PO 2XW 90 days semaglutide (Ozempic) 1 mg subcut QWEEK spironolactone 25 mg PO DAILY triamcinolone acetonide 0.025% topical Tobacco use date assessed: 05/08/23 Fall risk assessment: No Falls in past year Last assessed Fall Risk: 05/08/23 HPI Unable to apply pressure on right leg HPI Details 77-year-old male with diabetes mellitus currently followed at [facility], hypertension, and dyslipidemia, here today complaining of pain in anterior aspect of right thigh, which has been present now for the last 2 days, worse on weight-bearing on right lower extremity. Denies any history of trauma, no strenuous exertion. He has been applying ice packs to affected area which affords only temporary relief. [facility] Medical History Elevated vitamin B12 level Left hamstring muscle strain Arthralgia Osteoarthritis of left hip Dyslipidemia Eczema Essential hypertension Type 2 diabetes mellitus without complication, without long-term current use of insulin Surgical History History of cataract surgery H/O shoulder replacement History of total hip replacement Family History Father Smoker Emphysema, unspecified Mother HTN (hypertension) Diabetes mellitus Cancer Brother Diabetes mellitus Social History Housing: House Alcohol intake: current Patient Tobacco Use Status: Never used Tobacco e-Cigarette/Vaping Use: Never Used service: No Current occupational status: retired Cognitive needs: No Hearing needs: No Vision needs: No Questionnaire PHQ-9 Over the last 2 weeks, how often have you been bothered by any of the following problems? Depression Screening Interpretation: Negative Depression Screening Done: Yes Source: Developed by Drs. Unruly Figueroa, Mey Ramírez, John Wagner and colleagues, with an educational christina from [employer]. Thrive Questionnaire Date Thrive assessed: 08/09/22 SHIRA-7 AMB Questionnaire SHIRA-7 Date SHIRA - 7 assessed: 08/09/22 Source: Developed by Drs. Unruly Figueroa, Mey Ramírez, John Wagner and colleagues, with an educational christina from [employer]. Review of Systems GI Denies abdominal pain, Denies melena, Denies hematochezia, Denies change in stool character and Denies heartburn Reports no additional complaints Musc Reports abnormal gait (Limping on right, walks with a cane) Neuro Reports no additional complaints and Reports abnormal gait (Limping on right, walks with a cane) Physical exam (Primary Care) Vital Signs: Last Vital Signs Pulse 84 05/08/23 09:17 BP 132/80 05/08/23 09:17 Pulse Ox 97 05/08/23 09:17 Oxygen Delivery Method Room Air 05/08/23 09:17 BMI result Body Mass Index 31.0 Tobacco/Smoking Status: Tobacco use Status Tobacco use date assessed 05/08/23 05/08/23 09:28 Patient Tobacco Use Status Never used Tobacco 05/08/23 09:17 e-Cigarette/Vaping Use Never Used 05/08/23 09:17 Depression Screening Interpretation: Negative Thrive Assessment: Date of Thrive Assessment Date Thrive assessed 08/09/22 05/08/23 09:17 Const Other: Alert oriented x3 no acute distress noted, ambulatory with assistance of a cane , favoring right leg Orientation/consciousness: patient oriented x3 Limitations: ambulation with cane Neck Other: Supple, no lymphadenopathy , thyroid gland nonpalpable Resp Auscultation: clear to auscultation bilaterally Cardio Other: S1-S2 present regular rate and rhythm GI Other: Normal bowel sounds, soft, nontender, no mass palpated General: Yes no CVA tenderness Back/Spine/Pelvis Back: no CVA tenderness and No back tenderness Skin General skin exam: no rashes or lesions noted Neuro General: patient oriented x3, tone normal, moves all extremities, Normal light touch and pain sensation and no focal motor deficits Cranial nerves: Yes CN's II-XII intact bilaterally Cognition (Neuro): normal cognition Gait exam (Neuro): Antalgic gait present (Favoring right leg) Extrem General: Yes full ROM, Yes no joint enlargement, Yes no pedal edema, Yes no calf tenderness and Yes Limp noted (right) Results Reviewed Results Reviewed: Name: Tobin Bey Age/Sex: 77/M : 1945 Unit#: [id number] Attend Dr: Nubia Gray MD Re04/12/23 Status: DEP REF Location: [facility] Disch: SPEC : [id number] UZMA: 04/12/23 STATUS: COMP REQ : [id number] RECD: 04/12/[address]: Nubia Gray MD COMP: 04/12/23 ENTERED: 04/12/23 [facility] DR: ORDERED: CBC Auto Diff Test Result Flag Reference Site WBC 6.3 4.8-10.8 X10*3/uL RBC 4.66 4.60-5.80 X10*6/uL HGB 13.7 L 14.0-18.0 g/dl HCT 42.4 42.0-52.0 % MCV 91.0 80.0-98.0 fL MCH 29.4 27.0-33.0 pg MCHC 32.3 31.0-36.0 g/dl RDW 13.7 11.0-16.0 % PLT 298 160-400 X10*3/uL MPV 9.7 9.4-12.4 fL Name: Tobin Bey Age/Sex: 77/M : 1945 Unit#: [id number] Attend Dr: Nubia Gray MD Re04/12/23 Status: DEP REF Location: [facility] Disch: SPEC : [id number] UZMA: 04/12/23 STATUS: COMP REQ : [id number] RECD: 04/12/[address]: Nubia Gray MD COMP: 04/12/23 ENTERED: 04/12/23 [facility]: ORDERED: Met Prof Fast, AST, ALT, Lipid Panel, Vitamin D 25-OH Test Result Flag Reference Site Sodium 137 135-145 mmol/L Potassium 4.4 3.3-5.1 mmol/L CL 99 96-108 mmol/L CO2 30 H 22-29 mmol/L Gap 12 12-20 BUN 26 H 9-16 mg/dL Creat 1.18 0.5-1.4 mg/dL EGFR > 60 NOTE: For -[place] individuals, multiply the result by 1.210. Chronic Kidney Disease: Estimated GFR < 60 mL/min/1.73m2 Severe Kidney Disease: Estimated GFR < 15 mL/min/1.73m2 FBS 142 H 60-99 mg/dL A fasting glucose of 126 mg/dl or greater on more than one occasion is considered diagnostic of diabetes. CA 9.7 8.4-10.2 mg/dL AST (GOT) 86 H 5-37 U/L ALT (GPT) 102 H 0-40 U/L Triglyceride 177 H <150 mg/dL Desirable Triglyceride: less than 150 mg/dL Borderline High Triglyceride 150-199 mg/dL High Triglyceride: 200-499 mg/dL Very High Triglyceride: greater than or equal to 5OO mg/dL Cholesterol 153 <200 mg/dL Desirable Cholesterol: less than 200 mg/dL Borderline High Cholesterol: 200-239 mg/dL High Cholesterol: greater than 239 mg/dL LDL Calculated 68 <100 mg/dL Desirable LDL: less than 100 mg/dL Near Optimal/Above Optimal LDL: 110-129 mg/dL Borderline High LDL: 130-159 mg/dL High LDL: 160-189 mg/dL Very High LDL: greater than or equal to 190 mg/dL HDL 50 >40 mg/dL Desirable HDL: greater than 40 mg/dL Note: This HDL assay may give artificially low results in patients with liver disease. Vit D 25-OH Tot 72.9 >30 ng/mL Health Based Reference Values* < 20 ng/mL Deficient 20-30 ng/mL Insufficient > 30 ng/mL Sufficient Laboratory Tests 04/12/23 07:10 Estimat Average Glucose 154 Hemoglobin A1c % 7.0 H Laboratory Tests 04/12/23 07:00 Urine Creatinine 97.20 Urine Microalbumin < 5.0 Microalb/Creat Ratio TNP Assessment and Plan Assessment & Plan (1) Pain in right thigh: Code(s): M79.651 - Pain in right thigh Plan: X-ray of right hip and right thigh ordered, prescription sent for (2) Essential hypertension: Comment: ff'd by dr madsen Code(s): I10 - Essential (primary) hypertension Plan: Blood pressure at goal of less than 130/80. Continue with current medication. Reinforced importance of following a low sodium diet, getting regular exercise, and lowering stress levels. (3) Type 2 diabetes mellitus without complication, without long-term current use of insulin: Code(s): E11.9 - Type 2 diabetes mellitus without complications Plan: Currently with a hemoglobin A1c at 7%., higher than last check. Continued on Ozempic 1 mg injected once weekly in addition to metformin 1000 mg 1 tab twice a day. His currently followed at the [facility] in [place] for his diabetes (4) Dyslipidemia: Code(s): E78.5 - Hyperlipidemia, unspecified Plan: Reviewed recent fasting lipid profile with patient with levels within normal limit . Continue with rosuvastatin 5 mg every other day , in addition to adherence to low-cholesterol diet and regular exercise, at least 30 minutes 3 to 4 times a week. Advised patient to make healthy food choices, eat more fruits, vegetables, whole grains, wild caught fish and low-fat dairy. Limit amount of meat and fried or fatty food products, as well as processed foods and fast foods. Follow-up scheduled with repeat fasting lipid panel in months. Orders: Orders XR hip RT min 2V Today M25.551 - Pain in right hip, M79.651 - Pain in right thigh XR femur RT 2V Today M25.551 - Pain in right hip, M79.651 - Pain in right thigh Medications: New nabumetone 500 mg PO BID PRN 30 tabs 0RF Pain in right thigh Coding Level of Care Code Est Pt Level 3 (02281) Diagnoses Pain in right thigh M79.651 Essential hypertension I10 Type 2 diabetes mellitus without complication, without long-term current use of insulin E11.9 Dyslipidemia E78.5
== END 2023-05-08 11:09 | disposition home or self-care (01) ==
PROVIDERS: PCP Internal Medicine; Visit Provider Internal Medicine
DX: M79.651 Pain in right thigh (principal); I10 Essential (primary) hypertension; E11.9 Type 2 diabetes mellitus without complications; E78.5 Hyperlipidemia, unspecified
CPT/HCPCS: 99213

== ENCOUNTER 2023-05-08 10:00 | Outpatient (REF) | payer MEDICARE, SELFPAY ==
--- NOTE | ~2023-05-08 | XR_ITS ---
EXAMINATION: XR FEMUR, RIGHT XR HIP, RIGHT CLINICAL INFORMATION: Hip and thigh pain COMPARISON: None available. TECHNIQUE: AP and lateral views of the right femur and frontal and frog lateral views of the right hip were obtained. FINDINGS: There is no evidence of acute fracture or subluxation of the right femur. No femoral bone lesions are detected. There are advanced degenerative changes of the right hip joint with severe superolateral joint space narrowing, subchondral sclerosis and cyst formation. Advanced lateral tibiofemoral osteoarthrosis of the knee is present as is considerable patellofemoral osteoarthrosis. Arterial calcifications are noted. XR/XR hip RT min 2V IMPRESSION: 1. Advanced osteoarthrosis of the right hip and advanced osteoarthrosis of the lateral tibiofemoral and patellofemoral compartments of the right knee. 2. Unremarkable plain radiographs of the right femur.
--- NOTE | ~2023-05-08 | XR_ITS ---
EXAMINATION: XR FEMUR, RIGHT XR HIP, RIGHT CLINICAL INFORMATION: Hip and thigh pain COMPARISON: None available. TECHNIQUE: AP and lateral views of the right femur and frontal and frog lateral views of the right hip were obtained. FINDINGS: There is no evidence of acute fracture or subluxation of the right femur. No femoral bone lesions are detected. There are advanced degenerative changes of the right hip joint with severe superolateral joint space narrowing, subchondral sclerosis and cyst formation. Advanced lateral tibiofemoral osteoarthrosis of the knee is present as is considerable patellofemoral osteoarthrosis. Arterial calcifications are noted. XR/XR femur RT 2V IMPRESSION: 1. Advanced osteoarthrosis of the right hip and advanced osteoarthrosis of the lateral tibiofemoral and patellofemoral compartments of the right knee. 2. Unremarkable plain radiographs of the right femur.
== END 2023-05-08 10:01 | disposition home or self-care (01) ==
LOC: HO.HMGCX 10:00
PROVIDERS: PCP Internal Medicine; Visit Provider Internal Medicine
DX: M79.651 Pain in right thigh (principal); M25.551 Pain in right hip
CPT/HCPCS: 73502; 73552

== ENCOUNTER 2023-05-17 13:36 | Outpatient (AMB) | payer MEDICARE, SELFPAY ==
[2023-05-17 13:38] VITALS: BMI 31.0
--- NOTE | 2023-05-17 13:38 | MHC.OFFVIS ---
Intake Vital Signs 05/17/23 13:38 Height 5 ft 11 in Weight 222 lb BMI 31.0 Intake Visit Reasons: OV-Right knee pain INJ 02/15/23 Intake Note: Tobin is a 77 year old male who presents today for a right knee injection. Last injection done 02/15/23. Patient reports that this injection was not helpful. He would like to have another injection done today. Patient also reports that he has has worsening pain for about 5 months now. His pain in the groin area Allergies No Known Allergies Allergy (Verified 05/08/23 22:35) HPI OV-Right knee pain INJ 02/15/23 HPI Details Tobin is a 77 year old Diabetic man who returns to discuss his right knee OA. He was last seen, and injected, on 02/15/23, with good relief. He would like to repeat this injection as his pain has returned. He cannot walk and has given up going to the gym which is very distressing to him. He uses an assistive device and his right hip and right knee are painful. [facility] Medical History Elevated vitamin B12 level Left hamstring muscle strain Arthralgia Osteoarthritis of left hip Dyslipidemia Eczema Essential hypertension Type 2 diabetes mellitus without complication, without long-term current use of insulin Surgical History History of cataract surgery H/O shoulder replacement History of total hip replacement Family History Father Smoker Emphysema, unspecified Mother HTN (hypertension) Diabetes mellitus Cancer Brother Diabetes mellitus Social History Housing: House Alcohol intake: current Patient Tobacco Use Status: Never used Tobacco e-Cigarette/Vaping Use: Never Used service: No Current occupational status: retired Cognitive needs: No Hearing needs: No Vision needs: No Review of Systems Const All systems reviewed & are unremarkable except as noted in HPI and below Physical Exam Vital Signs: BMI result Body Mass Index 31.0 Const General: no acute distress, alert and awake Orientation/consciousness: patient oriented x3 HEENT Head: Yes normocephalic and Yes atraumatic Eyes EOM: EOMs intact bilaterally Resp Effort & Inspection: normal respiratory effort and able to speak in complete sentences Cardio Jugular venous distension: no JVD Skin General skin exam: turgor normal Rashes: no rashes Neuro General: patient oriented x3 Extrem Other: +Impingement and + Stinchfield Severe gait anatlgia with minimal rotation right hip. Right hip is externally rotated and FF to 70., Psych Appearance: grossly normal Affect: normal affect Attitude: cooperative Results Reviewed Results Reviewed: I personally reviewed relevant radiographs. Severe right hip and knee OA Assessment & Plan Assessment & Plan (1) Arthritis of right knee: Code(s): M17.11 - Unilateral primary osteoarthritis, right knee Plan: I injected his right knee. Discussed hyperglycemic effects of steroids. (2) Primary osteoarthritis of right hip: Code(s): M16.11 - Unilateral primary osteoarthritis, right hip Plan: This is a 77yo M with severe right hip OA. His radiographs demonstrate severe disease. He had a successful left REGIS many years ago. His quality of life is poor and he has pain with daily activities. His symptoms have not improved with activity modification. He is diabetic and has had difficulty controlling his HgbA1c. I recommend REGIS. I discussed the risks benefits and alternatives including but not limited to the risk of pain, infection, stiffness, leg length discrepancy, dislocation, nerve injury and need for further surgery as well as potential medical complications such as blood clots, pulmonary embolism and cardiac complications. Plan Scribed for Luis Fernando Land MD by Bennett Aguilera, medical safety director, on 05/17/23 at 1:45 PM, EST. Coding Level of Care Code Est Pt Level 4 (10764) Diagnoses Arthritis of right knee M17.11 Primary osteoarthritis of right hip M16.11
== END 2023-05-17 15:08 | disposition home or self-care (01) ==
PROVIDERS: PCP Internal Medicine; Visit Provider Orthopaedic Surgery
DX: M17.11 Unilateral primary osteoarthritis, right knee (principal); M16.11 Unilateral primary osteoarthritis, right hip; Z96.642 Presence of left artificial hip joint
CPT/HCPCS: 20610; 99214

== ENCOUNTER → 2023-05-17 13:36 | Outpatient (BNVA) | payer MEDICARE, SELFPAY | PROVIDERS: PCP Internal Medicine; Visit Provider Orthopaedic Surgery | DX: M17.11 Unilateral primary osteoarthritis, right knee (principal); M16.11 Unilateral primary osteoarthritis, right hip | CPT/HCPCS: 20610; 99212; J0665; J1100 ==

== ENCOUNTER 2023-07-19 07:48 | Outpatient (REF) | payer MEDICARE, SELFPAY ==
[2023-07-19 11:18] LABS: MANUAL DIFF FLAG NO
[2023-07-19 11:30] LABS: Basophils Absolute Auto 0.1 X10*3/uL (0.0-0.2); Basophils Percent Auto 1.3 % (0-2); Eosinophils Absolute Auto 0.2 X10*3/uL (0.0-0.4); Eosinophils Percent Auto 4.2 % (0-4); Hematocrit 40.1 % (42.0-52.0); Imm Gran Abs Auto 0.02 X10*3/uL (0.00-0.03); Imm Gran Pct Auto 0.4 % (0.0-0.4); Lymphocytes Absolute Auto 1.7 X10*3/uL (1.2-4.9); Lymphocytes Percent Auto 30.3 % (20-40); Mean Corpuscular HGB Conc 32.4 g/dl (31.0-36.0); Mean Corpuscular Hemoglobin 28.6 pg (27.0-33.0); Mean Corpuscular Volume 88.3 fL (80.0-98.0); Mean Platelet Volume 9.5 fL (9.4-12.4); Monocytes Absolute Auto 0.6 X10*3/uL (0.1-1.2); Monocytes Percent Auto 11.4 % (2-11); Neutrophils Absolute Auto 2.9 x10*3/uL (2.0-8.3); Neutrophils Percent Auto 52.4 % (45-73); Platelet Count 247 X10*3/uL (160-400); Red Blood Count 4.54 X10*6/uL (4.60-5.80); Red Cell Distribution Width 13.1 % (11.0-16.0); White Blood Count 5.5 X10*3/uL (4.8-10.8)
[2023-07-19 11:50] LABS: Estimated Average Glucose 128 mg/dL; Hemoglobin A1c % 6.1 % (<6.0)
[2023-07-19 11:54] LABS: Alanine Aminotransferase 21 U/L (0-40); Albumin Level 3.7 g/dL (3.5-5.0); Alkaline Phosphatase 101 U/L (39-117); Anion Gap 15 (12-20); Aspartate Amino Transferase 27 U/L (5-37); Bilirubin Total 0.3 mg/dL (0.0-1.0); Blood Urea Nitrogen 31 mg/dL (9-16); Calcium 9.6 mg/dL (8.4-10.2); Carbon Dioxide 29 mmol/L (22-29); Chloride 102 mmol/L (96-108); Cholesterol 154 mg/dL (<200); Estimated Glomerular Filt Rate > 60; Glucose Fasting 122 mg/dL (60-99); HDL Cholesterol 41 mg/dL (>40); LDL Cholesterol Calculated 70 mg/dL (<100); Potassium 3.8 mmol/L (3.3-5.1); Sodium 142 mmol/L (135-145); Total Protein 7.4 g/dL (6.5-8.0); Triglycerides 216 mg/dL (<150)
[2023-07-19 12:02] LABS: PSA,Total (Free>4and<10) 3.44 ng/mL (0.00-4.00)
[2023-07-19 12:19] LABS: Folate 11.4 ng/mL (> or = 4.0); Vitamin B12 719 pg/mL (200-900)
== END 2023-07-19 07:49 | disposition home or self-care (01) ==
LOC: HO.HMGCLDS 07:48
PROVIDERS: PCP Internal Medicine; Visit Provider Internal Medicine
DX: Z01.818 Encounter for other preprocedural examination (principal); E78.5 Hyperlipidemia, unspecified; R74.8 Abnormal levels of other serum enzymes; I10 Essential (primary) hypertension; E11.9 Type 2 diabetes mellitus without complications; Z12.5 Encounter for screening for malignant neoplasm of prostate
CPT/HCPCS: 36415; 80053; 80061; 82607; 82746; 83036; 84153; 85025

== ENCOUNTER 2023-07-26 15:53 | Outpatient (AMB) | payer MEDICARE, SELFPAY ==
[2023-07-26 16:03] VITALS: BP 116/70; PULSE 69; O2SAT 99
--- NOTE | 2023-07-26 16:03 | A.OFFPC_ITS ---
Vital Signs 07/26/23 16:03 Height 5 ft 11 in Weight 215 lb 4 oz BMI 30.0 BP 116/70 Blood Pressure Location Lt brachial Position Sitting Pulse 69 Pulse Source Pulse Oximeter Pulse Oximetry (%) 99 Oxygen Delivery Method Room Air Intake Visit Reasons: 3 mo. f/u labs Intake Note: Pt is here today for 3 Month follow up on labs. Allergies No Known Allergies Allergy (Verified 07/26/23 17:10) Medication List - Last Reconciled 07/26/23 by Nubia Gray MD blood sugar diagnostic (FreeStyle Lite Strips) check fasting blood sugar once a day blood-glucose meter (FreeStyle Lite Meter kit) check fasting blood sugar once a day lancets As directed lancets (Accu-Chek Fastclix Lancet Drum) Check blood sugar 3 times a day as directed losartan 100 mg PO DAILY metformin 1,000 mg PO BID metoprolol tartrate 100 mg PO DAILY mupirocin 2% 1 appl topical TID nabumetone 500 mg PO BID PRN rosuvastatin 5 mg PO 2XW 90 days semaglutide (Ozempic) 1 mg subcut QWEEK spironolactone 25 mg PO DAILY triamcinolone acetonide 0.025% topical Tobacco use date assessed: 07/26/23 Fall risk assessment: No Falls in past year Last assessed Fall Risk: 07/26/23 Dental Screening Dental Screen Date: 07/26/23 Did you have a dental visit in the last 12 months?: No Did you have a dental problem in the last 6 months where you did not have access to dental care?: No Was dental information given to patient?: No HPI 3 mo. f/u labs HPI Details 77-year-old male with diabetes mellitus , hypertension, hyperlipidemia, here today for a follow-up. He had recent fasting labs done which showed good control his diabetes mellitus with an A1c at 6.1% now, fasting lipids are within normal limits except for elevated triglycerides. It was also noted that he is started becoming anemic again , has stopped taking his iron supplements. He has osteoarthritis of his right hip, scheduled for total right hip arthroplasty on 08/21/2023, with Dr. Land. He has partial-thickness sacral decubitus ulcer currently being seen and treated by Thalia Mcknight NP at [facility], and as per her last visit it has started to reepithelialize about 50% of its initial size, and does not think that it will interfere with proposed surgery. [facility] Medical History (Updated 07/26/23 @ 17:32 by Nubia Gray MD) Anemia Sacral decubitus ulcer Elevated vitamin B12 level Arthralgia Osteoarthritis of left hip Dyslipidemia Eczema Essential hypertension Type 2 diabetes mellitus without complication, without long-term current use of insulin Surgical History History of cataract surgery H/O shoulder replacement History of total hip replacement Family History Father Smoker Emphysema, unspecified Mother HTN (hypertension) Diabetes mellitus Cancer Brother Diabetes mellitus Social History Housing: House Alcohol intake: current Patient Tobacco Use Status: Never used Tobacco e-Cigarette/Vaping Use: Never Used service: No Current occupational status: retired Cognitive needs: No Hearing needs: No Vision needs: No Questionnaire PHQ-9 Over the last 2 weeks, how often have you been bothered by any of the following problems? 1. Little interest or pleasure in doing things: not at all 2. Feeling down, depressed, or hopeless: not at all 3. Trouble falling or staying asleep, or sleeping too much: not at all 4. Feeling tired or having little energy: not at all 5. Poor appetite or overeating: not at all 6. Feeling bad about yourself - or that you are a failure or have let yourself or your family down: not at all 7. Trouble concentrating on things, such as reading the newspaper or watching television: not at all 8. Moving or speaking so slowly that other people could have noticed. Or the opposite - being so fidgety or restless that you have been moving around a lot more than usual: not at all 9. Thoughts that you would be better off or of hurting yourself in some way: not at all Total score: 0 Depression Screening Interpretation: Negative Depression Screening Done: Yes 24535 - PHQ-9 Billing: Yes Source: Developed by Drs. Unruly Figueroa, MeyJohn Amezcua and colleagues, with an educational christina from [employer]. Thrive Questionnaire Date Thrive assessed: 07/26/23 I am a: Patient What is your living situation today?: I have a steady place to live Within the past 12 months, did the food you bought not last and you didn't have the money to get more?: Never true Within the past 12 months, did you worry whether your food would run out before you got money to buy more?: Never true Do you have trouble paying for medicines?: No Do you have trouble getting transportation to medical appointments?: No Do you have trouble paying your heating and electricity bill?: No Do you have trouble taking care of your child, family member or friend?: No Do you have trouble with day-to-day activities such as bathing, preparing meals, shopping, managing finances, etc.?: No Are you currently unemployed and looking for a job?: No Are you interested in more education?: No THRIVE Score: 0 AUDIT C Alcohol Use Questionnaire (AUDIT-C) 1. How often do you have a drink containing alcohol?: Never 3. How often do you have six or more drinks on one occasion?: Never Total Score: 0 Score Reviewed/Action Taken: Yes SHIRA-7 AMB Questionnaire SHRIA-7 Date SHIRA - 7 assessed: 07/26/23 Feeling nervous, anxious, or on edge: 0 = Not at all Not being able to stop or control worryin = Not at all Worrying too much about different things: 0 = Not at all Trouble relaxin = Not at all Being so restless that it is hard to sit still: 0 = Not at all Becoming easily annoyed or irritable: 0 = Not at all Feeling afraid as if something awful might happen: 0 = Not at all Total SHIRA-7 score (0-4 normal; 5-9 mild; 10-14 moderate; 15-21 severe): 0 Source: Developed by Drs. Unruly Figueroa, John Titus and colleagues, with an educational christina from [employer]. SHIRA-7 Assessment Billing SHIRA-7 Assessment Tool: SHIRA-7 Assessment 60936 Review of Systems Const Reports no additional complaints Eyes Reports no additional complaints ENT Reports no additional complaints Card Denies chest pain, Denies rapid heart rate, Denies lightheadedness, Denies palpitations and Denies dyspnea Resp Denies chest congestion, Denies cough and Denies dyspnea GI Denies abdominal pain, Denies melena, Denies hematochezia, Denies change in stool character and Denies heartburn Reports no additional complaints Musc Reports abnormal gait (Limping on right, walks with a cane) and Reports arthralgias (Right hip right hip right hip) Skin/Breast Reports as per HPI Neuro Reports no additional complaints and Reports abnormal gait (Limping on right, walks with a cane) Psych Reports no additional complaints Endo Denies palpitations Oscar/Lymph Reports no additional complaints Aller/Immun Reports no additional complaints Physical exam (Primary Care) Vital Signs: Last Vital Signs Pulse 69 07/26/23 16:03 BP 116/70 07/26/23 16:03 Pulse Ox 99 07/26/23 16:03 Oxygen Delivery Method Room Air 07/26/23 16:03 BMI result Body Mass Index 30.0 Tobacco/Smoking Status: Tobacco use Status Tobacco use date assessed 07/26/23 07/26/23 16:07 Patient Tobacco Use Status Never used Tobacco 07/26/23 16:03 e-Cigarette/Vaping Use Never Used 07/26/23 16:03 PHQ-9: PHQ-9 Score PHQ-9: Total score 0 07/26/23 17:22 Depression Screening Interpretation: Negative Thrive Assessment: Date of Thrive Assessment Date Thrive assessed 07/26/23 07/26/23 17:22 Const Other: Alert oriented x3 no acute distress noted, ambulatory with assistance of a cane , favoring right leg Orientation/consciousness: patient oriented x3 Neck Other: Supple, no lymphadenopathy , thyroid gland nonpalpable Resp Auscultation: clear to auscultation bilaterally Cardio Other: S1-S2 present regular rate and rhythm GI Other: Normal bowel sounds, soft, nontender, no mass palpated General: Yes no CVA tenderness Back/Spine/Pelvis Back: no CVA tenderness and No back tenderness Skin Other: 5 and 3 see superficial ulceration with no drainage noted on medial left and right buttock respectively, no surrounding erythema or swelling Neuro General: patient oriented x3, tone normal, moves all extremities, Normal light touch and pain sensation and no focal motor deficits Cranial nerves: Yes CN's II-XII intact bilaterally Cognition (Neuro): normal cognition Gait exam (Neuro): Antalgic gait present (Favoring right leg) Extrem General: Yes no joint enlargement, Yes no pedal edema, Yes no calf tenderness and Yes Limp noted (right) Assessment and Plan Assessment & Plan (1) Type 2 diabetes mellitus without complication, without long-term current use of insulin: Code(s): E11.9 - Type 2 diabetes mellitus without complications Plan: Hemoglobin A1c now down to 6.1%, continue adherence to diabetic diet, continue with metformin a 1000 mg 1 tablet twice a day, semaglutide 1 mg subcutaneously given once a week , continue checking fasting glucose once a day at least and keep a record of the readings for review. Reminded to get updated diabetes eye exam for retinopathy screening, sees Dr. Fowler and sees Dr. Eliana he for diabetes foot exam . (2) Essential hypertension: Comment: ff'd by dr madsen Code(s): I10 - Essential (primary) hypertension Plan: Blood pressure at goal of less than 130/80. Continue with current medication. Reinforced importance of following a low sodium diet, getting regular exercise, and lowering stress levels. (3) Dyslipidemia: Code(s): E78.5 - Hyperlipidemia, unspecified Plan: Reviewed recent fasting lipid profile with patient with levels all within normal limits except for elevated triglycerides continued with rosuvastatin 5 mg 1 tablet twice a week, in addition to adherence to low-cholesterol diet . Advised patient to make healthy food choices, eat more fruits, vegetables, whole grains, wild caught fish and low-fat dairy. Limit amount of meat and fried or fatty food products, as well as processed foods and fast foods. Follow-up scheduled with repeat fasting lipid panel in 3 months. (4) Sacral decubitus ulcer: Code(s): L89.159 - Pressure ulcer of sacral region, unspecified stage Qualifiers: Pressure injury stage: stage 1 Qualified Code(s): L89.151 - Pressure ulcer of sacral region, stage 1 Plan: [facility] Who as per her last consult note states that the ulcer has reepithelialized to about 50% of its initial size advised to continue applying mupirocin ointment at night, tacrolimus ointment in the morning to the ulcers, Allevyn dressing changed twice daily, and use CeraVe hydrating cleanser to wash the area prior to application of ointments, use Vaseline barrier and pat dry gently and strongly advised to use donut pillow to alleviate pressure on ulcers (5) Anemia: Code(s): D64.9 - Anemia, unspecified Plan: Mild anemia noted again on last blood work. Advised to restart taking ferrous sulfate 325 mg 1 tablet daily, patient still has medications at home, will repeat another CBC and iron profile in 3 month Orders: Orders Alanine Aminotransferase 10/27/23 E11.9 - Type 2 diabetes mellitus without complications, E78.5 - Hyperlipidemia, unspecified, I10 - Essential (primary) hypertension, L89.159 - Pressure ulcer of sacral region, unspecified stage Hemoglobin A1c 10/27/23 E11.9 - Type 2 diabetes mellitus without complications, E78.5 - Hyperlipidemia, unspecified, I10 - Essential (primary) hypertension, L89.159 - Pressure ulcer of sacral region, unspecified stage Basic Metabolic Panel Fasting 10/27/23 E11.9 - Type 2 diabetes mellitus without complications, E78.5 - Hyperlipidemia, unspecified, I10 - Essential (primary) hypertension, L89.159 - Pressure ulcer of sacral region, unspecified stage Complete Blood Count Auto Diff 10/27/23 E11.9 - Type 2 diabetes mellitus without complications, E78.5 - Hyperlipidemia, unspecified, I10 - Essential (primary) hypertension, L89.159 - Pressure ulcer of sacral region, unspecified stage IRON PROFILE 10/27/23 E11.9 - Type 2 diabetes mellitus without complications, E78.5 - Hyperlipidemia, unspecified, I10 - Essential (primary) hypertension, L89.159 - Pressure ulcer of sacral region, unspecified stage ECG 12 lead EKG Today E11.9 - Type 2 diabetes mellitus without complications, I10 - Essential (primary) hypertension, Z01.818 - Encounter for other preprocedural examination Aspartate Amino Transferase 10/27/23 E11.9 - Type 2 diabetes mellitus without complications, E78.5 - Hyperlipidemia, unspecified, I10 - Essential (primary) hypertension, L89.159 - Pressure ulcer of sacral region, unspecified stage Lipid Panel 10/27/23 E11.9 - Type 2 diabetes mellitus without complications, E78.5 - Hyperlipidemia, unspecified, I10 - Essential (primary) hypertension, L89.159 - Pressure ulcer of sacral region, unspecified stage Microalbumin, Random (w Creat) 10/27/23 E11.9 - Type 2 diabetes mellitus without complications, E78.5 - Hyperlipidemia, unspecified, I10 - Essential (primary) hypertension, L89.159 - Pressure ulcer of sacral region, unspecified stage Coding Level of Care Code Est Pt Level 4 (76145) Diagnoses Type 2 diabetes mellitus without complication, without long-term current use of insulin E11.9 Essential hypertension I10 Dyslipidemia E78.5 Pressure injury of sacral region, stage 1 L89.151 Pressure injury stage: stage 1 Anemia D64.9 Additional Codes SHIRA-7 Assessment Billing - SHIRA-7 Assessment Tool: SHIRA-7 Assessment 06930 ([id number])
== END 2023-07-26 17:16 | disposition home or self-care (01) ==
PROVIDERS: PCP Internal Medicine; Visit Provider Internal Medicine
DX: E11.69 Type 2 diabetes mellitus with other specified complication (principal); I10 Essential (primary) hypertension; E78.5 Hyperlipidemia, unspecified; L89.151 Pressure ulcer of sacral region, stage 1; D64.9 Anemia, unspecified
CPT/HCPCS: 99214

== ENCOUNTER → 2023-08-09 10:15 | Outpatient (BNV) | payer MEDICARE, SELFPAY | PROVIDERS: Admitting Provider Orthopaedic Surgery; PCP Internal Medicine; Visit Provider Internal Medicine Cardiovascular Disease | DX: I44.0 Atrioventricular block, first degree (principal) | CPT/HCPCS: 93010 ==

== ENCOUNTER 2023-08-13 | Outpatient (REF) | payer MEDICARE, SELFPAY ==
--- NOTE | 2023-08-09 10:15 | ECG_ITS ---
Test Reason : PREOP Blood Pressure : / mmHG Vent. Rate : 076 BPM Atrial Rate : 076 BPM P-R Int : 234 ms QRS Dur : 088 ms QT Int : 384 ms P-R-T Axes : 080 047 065 degrees QTc Int : 432 ms Sinus rhythm with 1st degree A-V block Otherwise normal ECG When compared with ECG of 24-JUL-2019 17:09, Premature supraventricular complexes are no longer Present Referred By: Nubia Gray Electronically Signed By:NESTOR DEE MD
[2023-08-13 12:13] VITALS: BP 120/60; PULSE 79; RESP 16; O2SAT 98; BMI 29.2
--- NOTE | 2023-08-13 12:42 | HO.ANESPROP2 ---
HPI - Anesthesia Eval Consult details Narrative: Postponed by ortho d/t skin concerns 77yo M for Right Hip Total Replacement, 08/21/23 PCP clearance pending No recent illness No CP/SOB with minimal activity DM. FBS within 100's. A1C 6.1% 06/2023. Ozempic s/p L hip total 2014 Derm. Muliple open areas on LE. Pt denies any open skin surrounding R hip. Cleared by derm regarding bilat buttocks decubiti. PMFSH Active Problems Active Problems: All Active Problems (Updated 07/26/23 @ 17:32 by Nubia Gray MD) Primary osteoarthritis of right hip (Acute) Arthritis of right knee (Acute) Tinea cruris (Acute) Anemia (Acute) Sacral decubitus ulcer (Acute) Dyslipidemia (Acute) Eczema (Acute) Essential hypertension (Acute) Type 2 diabetes mellitus without complication, without long-term current use of insulin (Acute) Past Medical History Medical History (Updated 08/20/23 @ 23:13 by Nubia Gray MD) Anemia Sacral decubitus ulcer Elevated vitamin B12 level Osteoarthritis of left hip Dyslipidemia Eczema Essential hypertension Type 2 diabetes mellitus without complication, without long-term current use of insulin Family History Family History Father Smoker Emphysema, unspecified Mother HTN (hypertension) Diabetes mellitus Cancer Brother Diabetes mellitus Family history of problems with anesthesia: No Surgical History Surgical History Hx of colonoscopy History of cataract surgery H/O shoulder replacement History of total hip replacement History of Problems with Anesthesia: No Social History Social History Housing: House Are you a primary critical care nurse practitioner to a significant other at home: No Do you presently have visiting nurse or other home services: No Alcohol intake: current Patient Tobacco Use Status: Never used Tobacco e-Cigarette/Vaping Use: Never Used Use of substances other than those prescribed or required for medical reasons: No Have you been hit, kicked, punched, or otherwise hurt by someone within the past year? If so, by whom?: No Are you DNR?: No Advance Directives: No Advance Directives Information Provided: Yes Advance Directives on File: No Recently lost weight without trying: No Nutrition Risks: Surgical patient >75years Poor oral hygiene: No service: No Current occupational status: retired Cognitive needs: No Hearing needs: No Vision needs: No Meds Allergies Allergy/AdvReac Type Severity Reaction Status Date / Time No Known Allergies Allergy Verified 08/14/23 09:49 Home Medications Medication Instructions Recorded Confirmed Last Taken Type lancets #100 ea 04/12/20 07/26/23 Unknown History losartan 100 mg tablet 100 mg PO DAILY 04/12/20 08/13/23 Unknown History metformin 1,000 mg tablet 1,000 mg PO BID 04/12/20 08/13/23 Unknown History metoprolol tartrate 50 mg tablet 100 mg PO DAILY 04/12/20 08/13/23 Unknown History spironolactone 25 mg tablet 25 mg PO DAILY 04/12/20 08/13/23 Unknown History mupirocin 2 % topical ointment 1 appl topical BEDTIME 04/12/23 08/13/23 Unknown History ammonium lactate 12 % topical cream appl topical BID 08/13/23 Unknown History ascorbic acid (vitamin C) 1,000 mg 1,000 mg PO DAILY 08/13/23 08/13/23 Unknown History tablet (Vitamin C) coQ10 (ubiquinol) 08/13/23 Unknown History ferrous sulfate 325 mg (65 mg 325 mg PO DAILY 08/13/23 08/13/23 Unknown History iron) tablet glucosamine-chondroitin 250 mg-200 2 tab PO TID 08/13/23 08/13/23 Unknown History mg tablet (Osteo Bi-Flex) lidocaine 5 % topical patch 1 patch topical DAILY 08/13/23 08/13/23 Unknown History magnesium 08/13/23 Unknown History multivitamin 1 tab PO DAILY 08/13/23 08/13/23 Unknown History rosuvastatin 10 mg tablet 10 mg PO .QSATURDAY 08/13/23 08/13/23 Unknown History semaglutide 1 mg/dose (4 mg/3 mL) 1 mg subcut QWEEK 08/13/23 08/13/23 08/10/23 History subcutaneous pen injector (Ozempic) tacrolimus 0.1 % topical ointment topical DAILY 08/13/23 Unknown History triamcinolone acetonide 0.1 % topical PRN Rash 08/13/23 Unknown History topical ointment Exam Height,Weight and Vital Signs: Height 6 ft Weight 97.8 kg Last Vital Signs Pulse 79 08/13/23 12:13 Resp 16 08/13/23 12:13 BP 120/60 08/13/23 12:13 Pulse Ox 98 08/13/23 12:13 O2 Del Method Room Air 08/13/23 12:13 Pertinent Lab Results Pertinent Lab Results: Laboratory Tests 07/19/23 07:59 WBC 5.5 Hgb 13.0 L Hct 40.1 L Plt Count 247 Sodium 142 Potassium 3.8 Chloride 102 Carbon Dioxide 29 BUN 31 H Creatinine 1.15 Narrative Narrative: EKG 07/2023 Vent. Rate : 076 BPM Atrial Rate : 076 BPM P-R Int : 234 ms QRS Dur : 088 ms QT Int : 384 ms P-R-T Axes : 080 047 065 degrees QTc Int : 432 ms Sinus rhythm with 1st degree A-V block Otherwise normal ECG When compared with ECG of 24-JUL-2019 17:09, Premature supraventricular complexes are no longer Present Airway TM Dist: >3cm Neck ROM: Full Loose/Missing/Broken Teeth: Yes (Molars) Heart: RRR Lungs: CTAB Assessment and Plan Final Anesthetic Review Family History of Problems with Anesthesia: No History of Problems with Anesthesia: No
[2023-08-13 18:25] LABS: MRSA Nasal PCR NEGATIVE (Negative); SA Nasal PCR POSITIVE (Negative)
== END 2023-08-13 00:01 | disposition home or self-care (01) ==
LOC: HO.PAT
PROVIDERS: Physician Assistant; PCP Internal Medicine; Visit Provider Orthopaedic Surgery
DX: Z01.818 Encounter for other preprocedural examination (principal); E11.9 Type 2 diabetes mellitus without complications; I10 Essential (primary) hypertension
CPT/HCPCS: 86850; 86900; 86901; 87640; 87641; 93005

== ENCOUNTER 2023-08-14 08:33 | Outpatient (AMB) | payer MEDICARE, SELFPAY ==
[2023-08-14 09:32] VITALS: BP 110/70; PULSE 65; O2SAT 99
--- NOTE | 2023-08-14 09:32 | A.OFFPC_ITS ---
Vital Signs 08/14/23 09:32 Height 5 ft 11 in Weight 215 lb BMI 30.0 BP 110/70 Blood Pressure Location Rt brachial Position Sitting Pulse 65 Pulse Source Pulse Oximeter Pulse Oximetry (%) 99 Oxygen Delivery Method Room Air Intake Visit Reasons: pre-op Rt REGIS 08/20 Dr. Land Intake Note: Pt is here today pre-op for Rt REGIS on 08/[address] Land Allergies No Known Allergies Allergy (Verified 08/14/23 09:49) Medication List - Last Reconciled 08/14/23 by Nubia Gray MD ammonium lactate 12% appl topical BID ascorbic acid (vitamin C) (Vitamin C) 1,000 mg PO DAILY blood sugar diagnostic (FreeStyle Lite Strips) check fasting blood sugar once a day blood-glucose meter (FreeStyle Lite Meter kit) check fasting blood sugar once a day [coQ10 (ubiquinol) ] ferrous sulfate 325 mg PO DAILY glucosamine-chondroitin 250-200 mg (Osteo Bi-Flex) 2 tabs PO TID lancets As directed lancets (Accu-Chek Fastclix Lancet Drum) Check blood sugar 3 times a day as directed lidocaine 5% 1 patch topical DAILY losartan 100 mg PO DAILY [magnesium ] metformin 1,000 mg PO BID metoprolol tartrate 100 mg PO DAILY multivitamin 1 tab PO DAILY mupirocin 2% 1 appl topical BEDTIME rosuvastatin 10 mg PO .QSATURDAY semaglutide (Ozempic) 1 mg subcut QWEEK spironolactone 25 mg PO DAILY tacrolimus 0.1% topical DAILY triamcinolone acetonide 0.1% topical PRN Tobacco use date assessed: 08/14/23 Fall risk assessment: No Falls in past year Last assessed Fall Risk: 08/14/23 Dental Screening Dental Screen Date: 08/14/23 Did you have a dental visit in the last 12 months?: No Was dental information given to patient?: Patient declined HPI pre-op Rt REGIS 08/20 Dr. Land HPI Details 77-year-old male with diabetes mellitus type 2 without complication with long-term use of insulin, has hyperlipidemia, hypertension and chronic sacral decubitus ulcer, here today for preoperative exam for right total hip arthroplasty scheduled for 08/21/[address] Land. Patient has been feeling well, with diabetes mellitus controlled, latest hemoglobin A1c at 6.1%. Recent fasting labs showed mild anemia, serum electrolytes , renal function, liver enzymes, and lipids are all within normal limits except for elevated triglycerides. He is currently being followed for asacral decubitus ulcer at [facility], status post treatment with doxycycline, and Keflex, and currently on mupirocin ointment at night and tacrolimus ointment in the morning with twice a day Allevyn dressing change. [facility] Medical History (Updated 08/20/23 @ 23:13 by Nubia Gray MD) Anemia Sacral decubitus ulcer Elevated vitamin B12 level Osteoarthritis of left hip Dyslipidemia Eczema Essential hypertension Type 2 diabetes mellitus without complication, without long-term current use of insulin Surgical History Hx of colonoscopy History of cataract surgery H/O shoulder replacement History of total hip replacement Family History Father Smoker Emphysema, unspecified Mother HTN (hypertension) Diabetes mellitus Cancer Brother Diabetes mellitus Social History Housing: House Are you a primary lawn care professional to a significant other at home: No Do you presently have visiting nurse or other home services: No Alcohol intake: current Patient Tobacco Use Status: Never used Tobacco e-Cigarette/Vaping Use: Never Used Use of substances other than those prescribed or required for medical reasons: No Have you been hit, kicked, punched, or otherwise hurt by someone within the past year? If so, by whom?: No Are you DNR?: No Advance Directives: No Advance Directives Information Provided: Yes Advance Directives on File: No Recently lost weight without trying: No Nutrition Risks: Surgical patient >75years Poor oral hygiene: No service: No Current occupational status: retired Cognitive needs: No Hearing needs: No Vision needs: No Questionnaire PHQ-9 Over the last 2 weeks, how often have you been bothered by any of the following problems? Depression Screening Interpretation: Negative Depression Screening Done: Yes Source: Developed by Drs. Unruly Figueroa, Mey Ramírez, John Wagner and colleagues, with an educational christina from [employer]. Thrive Questionnaire Date Thrive assessed: 07/26/23 SHIRA-7 AMB Questionnaire SHIRA-7 Date SHIRA - 7 assessed: 07/26/23 Source: Developed by DrsYun Figueroa, Mey Ramírez, John Wagner and colleagues, with an educational christina from [employer]. Review of Systems Const Reports no additional complaints Eyes Reports no additional complaints ENT Reports no additional complaints Card Denies chest pain, Denies rapid heart rate, Denies lightheadedness, Denies palpitations and Denies dyspnea Resp Denies chest congestion, Denies cough and Denies dyspnea GI Denies abdominal pain, Denies melena, Denies hematochezia, Denies change in stool character and Denies heartburn Reports no additional complaints Musc Reports abnormal gait (Limping on right, walks with a cane) and Reports arthralgias (Right hip right hip right hip) Skin/Breast Reports as per HPI Neuro Reports no additional complaints and Reports abnormal gait (Limping on right, walks with a cane) Psych Reports no additional complaints Endo Denies palpitations Oscar/Lymph Reports no additional complaints Aller/Immun Reports no additional complaints Physical exam (Primary Care) Vital Signs: Last Vital Signs Pulse 65 08/14/23 09:32 BP 110/70 08/14/23 09:32 Pulse Ox 99 08/14/23 09:32 Oxygen Delivery Method Room Air 08/14/23 09:32 BMI result Body Mass Index 30.0 Tobacco/Smoking Status: Tobacco use Status Tobacco use date assessed 08/14/23 08/14/23 09:37 Patient Tobacco Use Status Never used Tobacco 08/14/23 09:33 e-Cigarette/Vaping Use Never Used 08/14/23 09:33 Depression Screening Interpretation: Negative Thrive Assessment: Date of Thrive Assessment Date Thrive assessed 07/26/23 08/14/23 09:33 Const Other: Alert oriented x3 no acute distress noted, ambulatory with assistance of a cane , favoring right leg Neck Other: Supple, no lymphadenopathy , thyroid gland nonpalpable Resp Auscultation: clear to auscultation bilaterally Cardio Other: S1-S2 present regular rate and rhythm GI Other: Normal bowel sounds, soft, nontender, no mass palpated General: Yes no CVA tenderness Back/Spine/Pelvis Back: no CVA tenderness and No back tenderness Skin Other: 5 and 3 see superficial ulceration with no drainage noted on medial left and right buttock respectively, no surrounding erythema or swelling Neuro General: tone normal, moves all extremities, Normal light touch and pain sensation and no focal motor deficits Cranial nerves: Yes CN's II-XII intact bilaterally Cognition (Neuro): normal cognition Gait exam (Neuro): Antalgic gait present (Favoring right leg) Extrem General: Yes no joint enlargement, Yes no pedal edema, Yes no calf tenderness and Yes Limp noted (right) Results Reviewed Results Reviewed: Name: Tobin Bey Age/Sex: 77/M : 1945 Unit#: [id number] Attend Dr: Nubia Gray MD Re07/19/23 Status: DEP REF Location: [facility] Disch: SPEC : [id number] UZMA: 07/19/23 STATUS: COMP REQ : [id number] RECD: 07/19/[address]: Nubia Gray MD COMP: 07/19/23 ENTERED: 07/19/[address] [facility] [address]: ORDERED: CBC Auto Diff Test Result Flag Reference WBC 5.5 4.8-10.8 X10*3/uL RBC 4.54 L 4.60-5.80 X10*6/uL HGB 13.0 L 14.0-18.0 g/dl HCT 40.1 L 42.0-52.0 % MCV 88.3 80.0-98.0 fL MCH 28.6 27.0-33.0 pg MCHC 32.4 31.0-36.0 g/dl RDW 13.1 11.0-16.0 % PLT 247 160-400 X10*3/uL MPV 9.5 9.4-12.4 fL Neut Pct Auto 52.4 45-73 % ImGran Pct Auto 0.4 0.0-0.4 % Lymp Pct Auto 30.3 20-40 % Victoria Pct Auto 11.4 H 2-11 % Eos Pct Auto 4.2 H 0-4 % Baso Pct Auto 1.3 0-2 % NRBC Pct Auto 0.0 0.0-0.2 /100WBC ANC Neut Abs # 2.9 2.0-8.3 x10*3/uL ImGran Abs Auto 0.02 0.00-0.03 X10*3/uL Lymph Abs Auto 1.7 1.2-4.9 X10*3/uL Victoria Abs Auto 0.6 0.1-1.2 X10*3/uL Eos Abs Auto 0.2 0.0-0.4 X10*3/uL Baso Abs Auto 0.1 0.0-0.2 X10*3/uL NRBC Abs Auto 0.000 0.0-0.012 X10*3/uL Name: Tobin Bey Age/Sex: 77/M : 1945 Unit#: [id number] Attend Dr: Nubia Gray MD Re07/19/23 Status: DEP REF [facility] Disch: SPEC : [id number] UZMA: 07/19/23 STATUS: COMP REQ : [id number] RECD: 07/19/23-[address]: Nubia Gray MD COMP: 07/19/234 ENTERED: 07/19/23-[address]: ORDERED: CMP Fast, Lipid Panel Test Result Flag Reference Sodium 142 135-145 mmol/L Potassium 3.8 3.3-5.1 mmol/L CL 102 96-108 mmol/L CO2 29 22-29 mmol/L Gap 15 12-20 BUN 31 H 9-16 mg/dL Creat 1.15 0.5-1.4 mg/dL EGFR > 60 NOTE: For -Mongolian individuals, multiply the result by 1.210. Chronic Kidney Disease: Estimated GFR < 60 mL/min/1.73m2 Severe Kidney Disease: Estimated GFR < 15 mL/min/1.73m2 FBS 122 H 60-99 mg/dL A fasting glucose from 100-125 mg/dl is considered impaired (pre-diabetes). CA 9.6 8.4-10.2 mg/dL Total Bili 0.3 0.0-1.0 mg/dL AST (GOT) 27 5-37 U/L ALT (GPT) 21 0-40 U/L Protein, Total 7.4 6.5-8.0 g/dL Alb 3.7 3.5-5.0 g/dL Triglyceride 216 H <150 mg/dL Desirable Triglyceride: less than 150 mg/dL Borderline High Triglyceride 150-199 mg/dL High Triglyceride: 200-499 mg/dL Very High Triglyceride: greater than or equal to 5OO mg/dL Cholesterol 154 <200 mg/dL Desirable Cholesterol: less than 200 mg/dL Borderline High Cholesterol: 200-239 mg/dL High Cholesterol: greater than 239 mg/dL LDL Calculated 70 <100 mg/dL Desirable LDL: less than 100 mg/dL Near Optimal/Above Optimal LDL: 110-129 mg/dL Borderline High LDL: 130-159 mg/dL High LDL: 160-189 mg/dL Very High LDL: greater than or equal to 190 mg/dL HDL 41 >40 mg/dL Desirable HDL: greater than 40 mg/dL Note: This HDL assay may give artificially low results in patients with liver disease. Alk Phos 101 39-117 U/L Laboratory Tests 04/12/23 07/19/23 07:10 07:59 Estimat Average Glucose 154 128 Hemoglobin A1c % 7.0 H 6.1 H Assessment and Plan Assessment & Plan (1) Preoperative examination: Code(s): Z01.818 - Encounter for other preprocedural examination Plan: 77-year-old male with diabetes mellitus, hypertension, anemia, hyperlipidemia and osteoarthritis here today for preoperative examination for right total hip arthroplasty scheduled for 08/21/[address] Land. Preoperative exam was unremarkable except for presence of sacral decubitus ulcer on buttock with granulation tissue present to no discharge, currently followed by [facility]. [facility] showed diabetes mellitus well controlled, with current hemoglobin A1c at 6.1%, electrolytes renal function fasting lipids are within normal limits except for mildly elevated triglyceride and presence of mild anemia. EKG done showed 08/09/2023 showed normal sinus rhythm with a first-degree AV block, no acute ST-T changes seen. Patient with a low cardiac risk index for proposed surgery. However presence of sacral decubitus ulcer may complicate post operative healing. (2) Sacral decubitus ulcer: Code(s): L89.159 - Pressure ulcer of sacral region, unspecified stage Qualifiers: Pressure injury stage: stage 1 Qualified Code(s): L89.151 - Pressure ulcer of sacral region, stage 1 Plan: Currently applying mupirocin ointment and tacrolimus ointment, with twice daily dressing change, followed at [facility] (3) Type 2 diabetes mellitus without complication, without long-term current use of insulin: Code(s): E11.9 - Type 2 diabetes mellitus without complications Plan: Diabetes mellitus controlled on Ozempic, metformin, [facility] (4) Essential hypertension: Comment: ff'd by dr madsen Code(s): I10 - Essential (primary) hypertension Plan: Blood pressure at goal of less than 130/80. Currently on spironolactone 25 mg daily and losartan 100 mg once a day, followed by Nephrology. (5) Dyslipidemia: Code(s): E78.5 - Hyperlipidemia, unspecified Plan: Reviewed recent fasting lipid results with patient, continued on rosuvastatin 10 mg once a week, followed at the [facility]. Reinforced importance of following a low- cholesterol diet (6) Anemia: Code(s): D64.9 - Anemia, unspecified Qualifiers: Anemia type: unspecified type Qualified Code(s): D64.9 - Anemia, unspecified Plan: Currently on ferrous sulfate 325 mg once daily (7) Primary osteoarthritis of right hip: Code(s): M16.11 - Unilateral primary osteoarthritis, right hip Plan: Scheduled for right REGIS on 08/21/2023 Coding Level of Care Code Est Pt Level 4 (38643) Diagnoses Preoperative examination Z01.818 Pressure injury of sacral region, stage 1 L89.151 Pressure injury stage: stage 1 Type 2 diabetes mellitus without complication, without long-term current use of insulin E11.9 Essential hypertension I10 Dyslipidemia E78.5 Anemia, unspecified type D64.9 Anemia type: unspecified type Primary osteoarthritis of right hip M16.11
== END 2023-08-14 10:20 | disposition home or self-care (01) ==
LOC: HO.HMGC 08:33
PROVIDERS: PCP Internal Medicine; Visit Provider Internal Medicine
DX: Z01.818 Encounter for other preprocedural examination (principal); L89.151 Pressure ulcer of sacral region, stage 1; E11.9 Type 2 diabetes mellitus without complications; I10 Essential (primary) hypertension; E78.5 Hyperlipidemia, unspecified; D64.9 Anemia, unspecified; M16.11 Unilateral primary osteoarthritis, right hip
CPT/HCPCS: 99214

== ENCOUNTER 2023-08-16 13:34 | Outpatient (AMB) | payer MEDICARE, SELFPAY ==
--- NOTE | 2023-08-16 06:30 | A.OFFVIS_ITS ---
Intake Vital Signs 08/16/23 13:51 Height 5 ft 11 in Weight 215 lb BMI 30.0 Intake Visit Reasons: Preop RT REGIS 08/21/23 [place] Intake Note: Tobin a 77 year old male presents today for a preoperative right REGIS on 08/21/23 NE. Pain management agreement reviewed and signed. Allergies No Known Allergies Allergy (Verified 08/14/23 09:49) HPI HPI Comments History of Present Illness Details Mr Bey presents to the office today for preop visit. He is scheduled for right total hip arthroplasty with Dr. Land. He continues to have ongoing pain and difficulty with ambulation in the right hip, which is affecting his quality of life; therefore, he has elected to move forward with surgery. It was brought to our attention Mr Bey has chronic decubitus ulcers along his buttock region. He was seen by his director of corporate strategy who mentioned they are in the process of healing, but not 100% healed at this time. [facility] Medical History (Updated 07/26/23 @ 17:32 by uNbia Gray MD) Anemia Sacral decubitus ulcer Elevated vitamin B12 level Arthralgia Osteoarthritis of left hip Dyslipidemia Eczema Essential hypertension Type 2 diabetes mellitus without complication, without long-term current use of insulin Surgical History Hx of colonoscopy History of cataract surgery H/O shoulder replacement History of total hip replacement Family History Father Smoker Emphysema, unspecified Mother HTN (hypertension) Diabetes mellitus Cancer Brother Diabetes mellitus Social History Housing: House Are you a primary wild animal caretaker to a significant other at home: No Do you presently have visiting nurse or other home services: No Alcohol intake: current Patient Tobacco Use Status: Never used Tobacco e-Cigarette/Vaping Use: Never Used Use of substances other than those prescribed or required for medical reasons: No Have you been hit, kicked, punched, or otherwise hurt by someone within the past year? If so, by whom?: No Are you DNR?: No Advance Directives: No Advance Directives Information Provided: Yes Advance Directives on File: No Recently lost weight without trying: No Nutrition Risks: Surgical patient >75years Poor oral hygiene: No service: No Current occupational status: retired Cognitive needs: No Hearing needs: No Vision needs: No Review of Systems Const All systems reviewed & are unremarkable except as noted in HPI and below Physical Exam Vital Signs: BMI result Body Mass Index 30.0 Assessment & Plan Assessment & Plan (1) Primary osteoarthritis of right hip: Code(s): M16.11 - Unilateral primary osteoarthritis, right hip Plan: I reviewed the case with Dr Land and given the extent of the ulcerations and his diabetes, this does put him at a higher risk of infection. It would be in the patients best interest to post pone the surgery until the ulcers are 100% healed to lower the risk of complications as much as possible. He did express disappointment, but dies understand. We will contact his director of corporate strategy to ask that she keep us informed about his progress. Coding Level of Care Code Est Pt Level 3 (75167) Diagnoses Primary osteoarthritis of right hip M16.11
== END 2023-08-16 14:53 | disposition home or self-care (01) ==
PROVIDERS: PCP Internal Medicine; Visit Provider Physician Assistant
DX: M16.11 Unilateral primary osteoarthritis, right hip (principal)
CPT/HCPCS: 99024

== ENCOUNTER → 2023-08-16 13:34 | Outpatient (BNVA) | payer MEDICARE, SELFPAY | PROVIDERS: PCP Internal Medicine; Visit Provider Physician Assistant | DX: Z01.818 Encounter for other preprocedural examination (principal); M16.11 Unilateral primary osteoarthritis, right hip | CPT/HCPCS: 99212 ==

== ENCOUNTER 2023-11-16 07:37 | Outpatient (REF) | payer MEDICARE, SELFPAY ==
[2023-11-16 11:28] LABS: MANUAL DIFF FLAG NO
[2023-11-16 11:31] LABS: Basophils Absolute Auto 0.1 X10*3/uL (0.0-0.2); Basophils Percent Auto 1.2 % (0-2); Eosinophils Absolute Auto 0.3 X10*3/uL (0.0-0.4); Eosinophils Percent Auto 3.8 % (0-4); Hematocrit 35.1 % (42.0-52.0); Hemoglobin 11.5 g/dl (14.0-18.0); Imm Gran Abs Auto 0.04 X10*3/uL (0.00-0.03); Imm Gran Pct Auto 0.6 % (0.0-0.4); Lymphocytes Absolute Auto 1.6 X10*3/uL (1.2-4.9); Mean Corpuscular HGB Conc 32.8 g/dl (31.0-36.0); Mean Corpuscular Volume 88.4 fL (80.0-98.0); Mean Platelet Volume 9.7 fL (9.4-12.4); Monocytes Absolute Auto 0.9 X10*3/uL (0.1-1.2); Monocytes Percent Auto 13.2 % (2-11); Neutrophils Absolute Auto 3.7 x10*3/uL (2.0-8.3); Neutrophils Percent Auto 56.2 % (45-73); Platelet Count 273 X10*3/uL (160-400); Red Blood Count 3.97 X10*6/uL (4.60-5.80); Red Cell Distribution Width 13.6 % (11.0-16.0); White Blood Count 6.5 X10*3/uL (4.8-10.8)
[2023-11-16 11:38] LABS: Estimated Average Glucose 123 mg/dL; Hemoglobin A1c % 5.9 % (<6.0)
[2023-11-16 11:46] LABS: Alanine Aminotransferase 19 U/L (0-40); Anion Gap 13 (12-20); Aspartate Amino Transferase 22 U/L (5-37); Blood Urea Nitrogen 26 mg/dL (9-16); Calcium 9.5 mg/dL (8.4-10.2); Carbon Dioxide 29 mmol/L (22-29); Chloride 100 mmol/L (96-108); Cholesterol 144 mg/dL (<200); Estimated Glomerular Filt Rate > 60; Glucose Fasting 118 mg/dL (60-99); HDL Cholesterol 45 mg/dL (>40); Iron 62 mcg/dL (45-160); LDL Cholesterol Calculated 72 mg/dL (<100); Percent Iron Saturation 20 % (15-50); Potassium 4.3 mmol/L (3.3-5.1); Sodium 138 mmol/L (135-145); Total Iron Binding Capacity 305 mcg/dL (228-428); Triglycerides 137 mg/dL (<150); Unsaturated Iron Binding 243 ug/dL
[2023-11-16 12:27] LABS: Creatinine Urine 69.37 mg/dL; Microalbum/Creatinine Ratio Ur 7.2 ug/mg cr (<30)
== END 2023-11-16 07:38 | disposition home or self-care (01) ==
LOC: HO.HMGCLDS 07:37
PROVIDERS: PCP Internal Medicine; Visit Provider Internal Medicine
DX: L89.159 Pressure ulcer of sacral region, unspecified stage (principal); I10 Essential (primary) hypertension; E78.5 Hyperlipidemia, unspecified; E11.9 Type 2 diabetes mellitus without complications
CPT/HCPCS: 36415; 80048; 80061; 82043; 82570; 83036; 83540; 84450; 84460; 85025

== ENCOUNTER 2023-11-22 14:48 | Outpatient (AMB) | payer MEDICARE, SELFPAY ==
[2023-11-22 15:45] VITALS: BP 102/72; PULSE 67; O2SAT 94; BMI 30.8
--- NOTE | 2023-11-22 15:45 | A.OFFPC_ITS ---
Vital Signs 11/22/23 15:45 Height 5 ft 11 in Weight 221 lb BMI 30.8 BP 102/72 Blood Pressure Location Rt brachial Position Sitting Pulse 67 Pulse Source Pulse Oximeter Pulse Oximetry (%) 94 Oxygen Delivery Method Room Air Intake Visit Reasons: follow up Intake Note: Pt is here today for f/u labs Allergies No Known Allergies Allergy (Verified 11/23/23 02:59) Medication List - Last Reconciled 11/23/23 by Nubia Gray MD ammonium lactate 12% appl topical BID ascorbic acid (vitamin C) (Vitamin C) 1,000 mg PO DAILY blood sugar diagnostic (FreeStyle Lite Strips) check fasting blood sugar once a day blood-glucose meter (FreeStyle Lite Meter kit) check fasting blood sugar once a day [coQ10 (ubiquinol) ] ferrous sulfate 325 mg PO DAILY glucosamine-chondroitin 250-200 mg (Osteo Bi-Flex) 2 tabs PO TID lancets As directed lancets (Accu-Chek Fastclix Lancet Drum) Check blood sugar 3 times a day as directed lidocaine 5% 1 patch topical DAILY losartan 100 mg PO DAILY [magnesium ] metformin 1,000 mg PO BID metoprolol tartrate 100 mg PO DAILY multivitamin 1 tab PO DAILY mupirocin 2% 1 appl topical BEDTIME rosuvastatin 10 mg PO .QSATURDAY semaglutide (Ozempic) 1 mg subcut QWEEK spironolactone 25 mg PO DAILY tacrolimus 0.1% topical DAILY triamcinolone acetonide 0.1% topical PRN Tobacco use date assessed: 11/22/23 Fall risk assessment: No Falls in past year Last assessed Fall Risk: 11/22/23 Dental Screening Dental Screen Date: 11/22/23 Did you have a dental visit in the last 12 months?: No Was dental information given to patient?: Patient has dentist HPI follow up HPI Details 78-year-old male with diabetes mellitus, hypertension, hyperlipidemia , here today for follow-up. He has been doing well with controlling his diabetes, latest hemoglobin A1c is at 5.9% and fasting lipids are within normal limits. Blood pressure stable and controlled on present treatment. Sees Dr. Fowler for his routine eye exam and retinopathy screening, and sees Dr. Lowery for treatment of Tinea ungiuum and diabetic foot care. Continues to be followed at [facility] [place] [facility] for his sacral decubiti. Patient states that his hip replacement surgery was postponed until his ulcers have healed. [facility] Medical History (Updated 11/23/23 @ 03:29 by Nubia Gray MD) Tinea unguium Anemia Sacral decubitus ulcer Elevated vitamin B12 level Osteoarthritis of left hip Dyslipidemia Eczema Essential hypertension Type 2 diabetes mellitus without complication, without long-term current use of insulin Surgical History Hx of colonoscopy History of cataract surgery H/O shoulder replacement History of total hip replacement Family History Father Smoker Emphysema, unspecified Mother HTN (hypertension) Diabetes mellitus Cancer Brother Diabetes mellitus Social History Housing: House Are you a primary care team assistant to a significant other at home: No Do you presently have visiting nurse or other home services: No Alcohol intake: current Patient Tobacco Use Status: Never used Tobacco e-Cigarette/Vaping Use: Never Used service: No Current occupational status: retired Cognitive needs: No Hearing needs: No Vision needs: No Questionnaire PHQ-9 Over the last 2 weeks, how often have you been bothered by any of the following problems? Depression Screening Interpretation: Negative Depression Screening Done: Yes Source: Developed by Drs. Unruly Figueroa, Mey Ramírez, John Wagner and colleagues, with an educational christina from [employer]. Thrive Questionnaire Date Thrive assessed: 07/26/23 SHIRA-7 AMB Questionnaire SHIRA-7 Date SHIRA - 7 assessed: 07/26/23 Source: Developed by Drs. Unruly Figueroa, Mey Ramírez, John Wagner and colleagues, with an educational christina from [employer]. Review of Systems Const Reports no additional complaints Eyes Details: Sees Dr. Fowler yearly Reports no additional complaints ENT Reports no additional complaints Card Denies chest pain, Denies rapid heart rate, Denies lightheadedness, Denies palpitations and Denies dyspnea Resp Denies chest congestion, Denies cough and Denies dyspnea GI Denies abdominal pain, Denies melena, Denies hematochezia, Denies change in stool character and Denies heartburn Reports no additional complaints Musc Reports abnormal gait (Limping on right, walks with a cane) and Reports arthralgias (Right hip right hip right hip) Skin/Breast Details: Patient also has a heel ulcer, seen by Dr. Lowery who in turn referred him to [facility] [place] Reports as per HPI Neuro Reports no additional complaints and Reports abnormal gait (Limping on right, walks with a cane) Psych Reports no additional complaints Endo Denies palpitations Oscar/Lymph Reports no additional complaints Aller/Immun Reports no additional complaints Physical exam (Primary Care) Vital Signs: Last Vital Signs Pulse 67 11/22/23 15:45 BP 102/72 11/22/23 15:45 Pulse Ox 94 11/22/23 15:45 Oxygen Delivery Method Room Air 11/22/23 15:45 BMI result Body Mass Index 30.8 Tobacco/Smoking Status: Tobacco use Status Tobacco use date assessed 11/22/23 11/22/23 15:49 Patient Tobacco Use Status Never used Tobacco 11/22/23 15:47 e-Cigarette/Vaping Use Never Used 11/22/23 15:47 Depression Screening Interpretation: Negative Thrive Assessment: Date of Thrive Assessment Date Thrive assessed 07/26/23 11/22/23 15:47 Const Other: Alert oriented x3 no acute distress noted, ambulatory with assistance of a cane , favoring right leg HENMT Head: Yes normocephalic Ears: external ears normal General nose exam: Normal external nose present Face and sinus: Yes face symmetric Mouth: Normal oral and palatal mucosa present and moist mucous membranes Eyes General: appearance normal, both eyes and all related structures Neck Other: Supple, no lymphadenopathy , thyroid gland nonpalpable Resp Auscultation: clear to auscultation bilaterally Cardio Other: S1-S2 present regular rate and rhythm GI Other: Normal bowel sounds, soft, nontender, no mass palpated General: Yes no CVA tenderness Back/Spine/Pelvis Back: no CVA tenderness and No back tenderness Skin Other: superficial ulceration with no drainage noted on medial left and right buttock respectively, no surrounding erythema or swelling Neuro General: tone normal, moves all extremities, no focal motor deficits and decrease sensation to monofilament Cranial nerves: Yes CN's II-XII intact bilaterally Cognition (Neuro): normal cognition Gait exam (Neuro): Antalgic gait present (Favoring right leg) Extrem General: Yes no joint enlargement, Yes no pedal edema, Yes no calf tenderness and Yes Limp noted (right) Results Reviewed Results Reviewed: Name: Tobin Bey Age/Sex: 78/M : 1945 Unit#: [id number] Attend Dr: Nubia Grya MD Re11/16/23 Status: DEP REF Location: [facility] Disch: SPEC : [id number] UZMA: 11/16/23 STATUS: COMP REQ : [id number] RECD: 11/16/[address]: Nubia Gray MD COMP: 11/16/23 ENTERED: 11/16/23 [facility] DR: ORDERED: CBC Auto Diff Test Result Flag Reference WBC 6.5 4.8-10.8 X10*3/uL RBC 3.97 L 4.60-5.80 X10*6/uL HGB 11.5 L 14.0-18.0 g/dl HCT 35.1 L 42.0-52.0 % MCV 88.4 80.0-98.0 fL MCH 29.0 27.0-33.0 pg MCHC 32.8 31.0-36.0 g/dl RDW 13.6 11.0-16.0 % PLT 273 160-400 X10*3/uL MPV 9.7 9.4-12.4 fL Neut Pct Auto 56.2 45-73 % ImGran Pct Auto 0.6 H 0.0-0.4 % Lymp Pct Auto 25.0 20-40 % [place] Pct Auto 13.2 H 2-11 % Eos Pct Auto 3.8 0-4 % Baso Pct Auto 1.2 0-2 % NRBC Pct Auto 0.0 0.0-0.2 /100WBC ANC Neut Abs # 3.7 2.0-8.3 x10*3/uL ImGran Abs Auto 0.04 H 0.00-0.03 X10*3/uL Lymph Abs Auto 1.6 1.2-4.9 X10*3/uL [place] Abs Auto 0.9 0.1-1.2 X10*3/uL Eos Abs Auto 0.3 0.0-0.4 X10*3/uL Baso Abs Auto 0.1 0.0-0.2 X10*3/uL NRBC Abs Auto 0.000 0.0-0.012 X10*3/uL Name: Tobin Bey Age/Sex: 78/M : 1945 Unit#: [id number] Attend Dr: Nubia Gray MD Re11/16/23 Status: DEP REF Location: [facility] Disch: SPEC : [id number] UZMA: 11/16/23 STATUS: COMP REQ : [id number] RECD: 11/16/23-[address]: Nubia Gray MD COMP: 11/16/23 ENTERED: 11/16/[address]: ORDERED: Met Prof Fast, IRON PROF, AST, ALT, Lipid Panel Test Result Flag Reference Sodium 138 135-145 mmol/L Potassium 4.3 3.3-5.1 mmol/L CL 100 96-108 mmol/L CO2 29 22-29 mmol/L Gap 13 12-20 BUN 26 H 9-16 mg/dL Creat 1.04 0.5-1.4 mg/dL EGFR > 60 NOTE: For -[place] individuals, multiply the result by 1.210. Chronic Kidney Disease: Estimated GFR < 60 mL/min/1.73m2 Severe Kidney Disease: Estimated GFR < 15 mL/min/1.73m2 FBS 118 H 60-99 mg/dL A fasting glucose from 100-125 mg/dl is considered impaired (pre-diabetes). CA 9.5 8.4-10.2 mg/dL Iron 62 45-160 mcg/dL TIBC 305 228-428 mcg/dL Saturation 20 15-50 % UIBC 243 ug/dL AST (GOT) 22 5-37 U/L ALT (GPT) 19 0-40 U/L Triglyceride 137 <150 mg/dL Desirable Triglyceride: less than 150 mg/dL Borderline High Triglyceride 150-199 mg/dL High Triglyceride: 200-499 mg/dL Very High Triglyceride: greater than or equal to 5OO mg/dL Cholesterol 144 <200 mg/dL Desirable Cholesterol: less than 200 mg/dL Borderline High Cholesterol: 200-239 mg/dL High Cholesterol: greater than 239 mg/dL LDL Calculated 72 <100 mg/dL Desirable LDL: less than 100 mg/dL Near Optimal/Above Optimal LDL: 110-129 mg/dL Borderline High LDL: 130-159 mg/dL High LDL: 160-189 mg/dL Very High LDL: greater than or equal to 190 mg/dL HDL 45 >40 mg/dL Desirable HDL: greater than 40 mg/dL Note: This HDL assay may give artificially low results in patients with liver disease. Laboratory Tests 11/16/23 07:41 Estimat Average Glucose 123 Hemoglobin A1c % 5.9 Laboratory Tests 11/16/23 07:41 Urine Creatinine 69.37 Urine Microalbumin 5.0 Microalb/Creat Ratio 7.2 Assessment and Plan Assessment & Plan (1) Anemia: Code(s): D64.9 - Anemia, unspecified Qualifiers: Anemia type: unspecified type Qualified Code(s): D64.9 - Anemia, unspecified Plan: Continue with ferrous sulfate 325 mg 1 daily (2) Dyslipidemia: Code(s): E78.5 - Hyperlipidemia, unspecified Plan: Reviewed recent fasting lipid profile with patient with levels at goal . Continue rosuvastatin , in addition to adherence to low-cholesterol diet and regular exercise, at least 30 minutes 3 to 4 times a week. Advised patient to make healthy food choices, eat more fruits, vegetables, whole grains, wild caught fish and low-fat dairy. Limit amount of meat and fried or fatty food products, as well as processed foods and fast foods. Follow-up scheduled with repeat fasting lipid panel in 4 months. (3) Essential hypertension: Comment: ff'd by dr madsen Code(s): I10 - Essential (primary) hypertension Plan: Blood pressure at goal of less than 130/80. Currently on losartan 100 mg daily and spironolactone 25 mg once a day.. Reinforced importance of following a low sodium diet, getting regular exercise, and lowering stress levels. (4) Type 2 diabetes mellitus without complication, without long-term current use of insulin: Code(s): E11.9 - Type 2 diabetes mellitus without complications Plan: Diabetes controlled, with hemoglobin A1c at 5.9%, continue metformin a 1000 mg 1 tablet twice a day and Ozempic 1 mg injected subcutaneously weekly (5) Sacral decubitus ulcer: Code(s): L89.159 - Pressure ulcer of sacral region, unspecified stage Qualifiers: Pressure injury stage: stage 1 Qualified Code(s): L89.151 - Pressure ulcer of sacral region, stage 1 Plan: Currently being followed at wound care clinic in [facility] (6) Tinea unguium: Comment: Followed by Dr. Sussy Lowery Code(s): B35.1 - Tinea unguium Plan: Followed by Dr. Lowery Orders: Orders Lipid Panel 02/26/24 D64.9 - Anemia, unspecified, E11.9 - Type 2 diabetes mellitus without complications, E78.5 - Hyperlipidemia, unspecified, I10 - Essential (primary) hypertension Hemoglobin A1c 02/26/24 D64.9 - Anemia, unspecified, E11.9 - Type 2 diabetes mellitus without complications, E78.5 - Hyperlipidemia, unspecified, I10 - Essential (primary) hypertension Alanine Aminotransferase 02/26/24 D64.9 - Anemia, unspecified, E11.9 - Type 2 diabetes mellitus without complications, E78.5 - Hyperlipidemia, unspecified, I10 - Essential (primary) hypertension Aspartate Amino Transferase 02/26/24 D64.9 - Anemia, unspecified, E11.9 - Type 2 diabetes mellitus without complications, E78.5 - Hyperlipidemia, unspecified, I10 - Essential (primary) hypertension Basic Metabolic Panel Fasting 02/26/24 D64.9 - Anemia, unspecified, E11.9 - Type 2 diabetes mellitus without complications, E78.5 - Hyperlipidemia, unspecified, I10 - Essential (primary) hypertension Complete Blood Count Auto Diff 02/26/24 D64.9 - Anemia, unspecified, E11.9 - Type 2 diabetes mellitus without complications, E78.5 - Hyperlipidemia, unspecified, I10 - Essential (primary) hypertension IRON PROFILE 02/26/24 D64.9 - Anemia, unspecified, E11.9 - Type 2 diabetes mellitus without complications, E78.5 - Hyperlipidemia, unspecified, I10 - Essential (primary) hypertension Coding Level of Care Code Est Pt Level 4 (97993) Complex EM visit Add On G2211 Diagnoses Anemia, unspecified type D64.9 Anemia type: unspecified type Dyslipidemia E78.5 Essential hypertension I10 Type 2 diabetes mellitus without complication, without long-term current use of insulin E11.9 Pressure injury of sacral region, stage 1 L89.151 Pressure injury stage: stage 1 Tinea unguium B35.1
== END 2023-11-22 16:35 | disposition home or self-care (01) ==
LOC: HO.HMGC 14:48
PROVIDERS: PCP Internal Medicine; Visit Provider Internal Medicine
DX: D64.9 Anemia, unspecified (principal); E78.5 Hyperlipidemia, unspecified; I10 Essential (primary) hypertension; E11.9 Type 2 diabetes mellitus without complications; L89.151 Pressure ulcer of sacral region, stage 1; B35.1 Tinea unguium
CPT/HCPCS: 99214; G2211

== ENCOUNTER 2024-02-18 11:47 | Outpatient (REF) | payer MEDICARE, SELFPAY ==
[2024-02-18 14:13] LABS: Blood Urea Nitrogen 19 mg/dL (9-16); Estimated Glomerular Filt Rate 60
== END 2024-02-18 11:48 | disposition home or self-care (01) ==
LOC: HO.HMGCLDS 11:47
PROVIDERS: PCP Internal Medicine; Visit Provider Radiology Vascular & Interventional Radiology
DX: R94.4 Abnormal results of kidney function studies (principal)
CPT/HCPCS: 36415; 82565; 84520

== ENCOUNTER 2024-05-23 08:02 | Outpatient (REF) | payer MEDICARE, SELFPAY ==
--- OUTSIDE RECORDS SUMMARY | 2024-05-23 08:18 | XMS_ITS ---
Author Organization [facility] Address [address] [place] [address] Care Team Providers Care Entertainment Dancer Name Role Phone Marina MCDANIELS, Nubia Zelaya Primary Care Provider Un available Sussy Lowery Unavailable [phone] REASON FOR VISIT open sore on heel Encounters Encounter Location Date Provider Diagnosis [address] [address] 11/19/2023 Sussy Sebastián Plan Of Treatment Next Appt Details Provider Name:Sussy Lowery , 06/02/2024 04:00:00 PM, [address] [place], [address], Progress Notes * SOTERO TobinDOB:1945 ( 78 yo M)Acc No.[id number]:11/19/2023 Patient:?Sotero Tobin :1945???Age:78 Y???Sex:Male Address:[place] [address], [address] * true * Date:? Generated for Printi ng/Faflorg/eTransmitting on:?05/23/2024 08:18 AM EST
--- OUTSIDE RECORDS SUMMARY | 2024-05-23 08:18 | XMS_ITS ---
Author Organization [facility] Address [address] [address] Care Team Providers [employer] Driver Name Role Phone Marina MCDANIELS, Nubia Zelaya Primary Care Provider Un available Black, Sussy Unavailable [phone] Allergies No Known Allergies REASON FOR VISIT Open sore, Emergency Appointment, Same Day Appointment Medications Medication SIG (Take, Route, Frequency, Duration) Notes Start Date End Date Status Extra Depth Orthopedic Shoes (1 Pair) with Customized Heat Molded Multidensity Innersoles (3 Pair) as directed Dx: NIDDM/Polyneuropathy (E11.42), Hammertoe Foot Deformity (M20.41,M20.42), Preulcerative Skin Lesion(s) (L85.1 12/22/2015 Not-Taking Extra-Depth Diabetic Shoes with 3 Pair Custom heat-molded multi-density innersoles . for 1 year . Dx:hammerotes and calloused lesions for . 12/17/2014 Not-Taking CeleBREX 200 MG Orally Not- Taking Januvia 50 MG 1 tablet Orally Once a day Not-Taking Betadine 10 % Apply a light layer to affected area on foot as needed Externally 3 time(s) a day for 10 days 11/19/2023 Active OxyCONTIN Not-Taking Ciclopirox Olamine 0.77% external Apply to effected areas twice a day for 30 days 12/18/2013 Not-Taking Extra-Depth Diabetic Shoes with 3 Pair Custom heat-molded multi-density innersoles Not-Taking Extra Depth Orthopedic Shoes (1 Pair) with Customized Heat Molded Multidensity Innersoles (3 Pair) as directed Dx: NIDDM/Polyneuropathy (E11.42), Hammertoe Foot Deformity (M20.41,M20.42), Preulcerative Skin Lesion(s) (L85.1 01/11/2017 Not-Taking Cipro 500 MG 1 tablet Orally ever y 12 hrs for 10 day(s) 12/22/2019 Not-Taking sAXagliptin HCl Not- Taking Bactrim DS 800-160 MG 1 tablet Orally Tw ice a day for 10 day(s) 03/19/2020 Not-Taking Cipro 500 MG 1 tablet Orally ever y 12 hrs for 10 day(s) 01/19/2020 Not-Taking Bactrim DS 800-160 MG 1 tablet Orally Tw ice a day for 10 day(s) 12/18/2019 Not-Taking traMADol HCl Not-Erick ing Trulicity 0.75 MG/0.5ML as directed Subcutaneous Not-Taking Ciclopirox Olamine 0.77 % 1 application Externally Twice a day for 30 days 09/18/2019 Not-Taking Alogliptin Benzoate 25 MG Orally Not-Taking Mupirocin 2 % 1 application Externally Once a day for 30 days 11/24/2021 Not-Taking Bactrim DS 800-160 MG 1 tablet Orally Tw ice a day for 10 day(s) 11/24/2021 Not-Taking Extra Depth Orthopedic Shoes (1 Pair) with Customized Heat Molded Multidensity Innersoles (3 Pair) as directed Dx: NIDDM/Polyneuropathy (E11.42), Hammertoe Foot Deformity (M20.41,M20.42), Preulcerative Skin Lesion(s) (L85.1 09/11/2022 Not-Taking Meloxicam 15 MG Orally Not- Taking Extra Depth Orthopedic Shoes (1 Pair) with Customized Heat Molded Multidensity Innersoles (3 Pair) as directed Dx: NIDDM/Polyneuropathy (E11.42), Hammertoe Foot Deformity (M20.41,M20.42), Preulcerative Skin Lesion(s) (L85.1 02/21/2018 Not-Taking Ciclopirox Olamine 0.77 % 1 application to affected area Externally to feet Twice a day for 30 days Not-Taking Extra Depth Orthopedic Shoes (1 Pair) with Customized Heat Molded Multidensity Innersoles (3 Pair) as directed Dx: NIDDM/Polyneuropathy (E11.42), Hammertoe Foot Deformity (M20.41,M20.42), Preulcerative Skin Lesion(s) (L85.1 03/06/2019 Not-Taking Ciclopirox Olamine 0.77 % 1 application Externally Twice a day for 30 days 08/25/2021 Active Extra Depth Orthopedic Shoes (1 Pair) with Customized Heat Molded Multidensity Innersoles (3 Pair) as directed Dx: NIDDM/Polyneuropathy (E11.42), Hammertoe Foot Deformity (M20.41,M20.42), Preulcerative Skin Lesion(s) (L85.1 08/25/2021 Active Extra Depth Orthopedic Shoes (1 Pair) with Customized Heat Molded Multidensity Innersoles (3 Pair) as directed Dx: NIDDM/Polyneuropathy (E11.42), Hammertoe Foot Deformity (M20.41,M20.42), Preulcerative Skin Lesion(s) (L85.1 10/25/2023 Active Ammonium Lactate 12 % 1 application Externally Twice a day for 30 days Not-Taking Iron 325 (65 Fe) MG 1 tablet Orally Once a day Active Naproxen 500 MG 1 tablet as needed Orally every 12 hrs Active Metoprolol & Diet Manage Prod Active hydrALAZINE HCl 75mg 1 tablet Orally 3 times a day Active Spironolactone Activ e hydroCHLOROthiazide Active Losartan Potassium A ctive Rosuvastatin Calcium Active metFORMIN HCl Active Ozempic Active Tacrolimus 0.1 % 1 application Externally Once a day Active Social History Tobacco Use: Social History Observation Description Date Details (start date - stop date) Never Smoker NA - NA Tobacco Use/Smoking Question Answer Notes Are you a: nonsmoker Additional Findings: Tobacco Non-User Current no n-smoker Alcohol Screen Question Answer Notes Did you have a drink contain ing alcohol in the past year? Yes How often did you have a dri nk containing alcohol in the past year? Monthly or less (1 point) Points 1 Interpretation Negative Tobacco use other than smoking: Question Answer Notes Are you an other tobacco user? 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) Active confirmed Vital Signs Height 6 ft in 11/19/2023 Weight 214 lbs 11/19/2023 BMI 29.02 kg/m2 11/19/2023 Encounters Encounter Location Date Provider Diagnosis [facility] [address] [place] [address] 11/19/2023 Sussy Lowery 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 and Type 2 diabetes mellitus with diabetic polyneuropathy E11.42 Assessments Encounter Date Diagnosis (ICD Code) Assessment Notes Treatment Notes Treatment Clinical Notes Section Notes 11/19/2023 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 breakdown of skin (ICD-10 - L97.421) rx [facility] 11/19/2023 Type 2 diabetes mellitus with diabetic polyneuropathy (ICD-10 - E11.42) Plan Of Treatment Medication Medication Name Sig Start Date Stop Date Notes Betadine 10 % Apply a light layer to affected area on foot as needed Externally 3 time(s) a day for 10 days 11/19/2023 Treatment Notes Assessment Notes Non-pressure chronic ulcer o f left heel and midfoot limited to breakdown of skin rx [facility] Next Appt Details Follow Up: as scheduled, [place] son: Provider Name:Sussy Lowery , 06/02/2024 04:00:00 PM, [address] [place], [address], Progress Notes * Tobin BEYDOB:1945 ( 78 yo M)Acc No.[id number]:11/19/2023 Progress Note Patient:?Tobin Bey Provider:?Sussy Lowery DPM :1945???Age:78 Y???Sex:Male Romeo e:11/19/2023 Address:[address] [place], [place] [id number] Pcp:Jayjay Graham Subjective: * Chief Complaints: * ???Open soreEmergency Appoin tmentSame Day Appointment * HPI: ???Skin problems:?Nature:?Open sore.?Location:?Heel/Rearfoot , Left.?Duration:?unknown.?Onset/Cause:?unknown.?Course:?worse.?Aggravated by:?any pressure , standing , walking.?Treatments:?none.? * ROS:?General/Constitutional:?Nausea?denies.?Vomiting?denies.?Hunger Thirst?denies.?Loss appetite?denies.?Chills?denies.?Fatigue?denies.?Fever?denies.?Night Sweats?denies.?Unexplained weight loss?denies.?Ophthalmologic:?Blurred vision?denies.?Red eye?denies.?HEENTM:?Dentures?denies.?Dizziness?denies.?Glasses/contacts?denies.?Retinopathy?de nies.?Blurred/double vision?denies.?TMJ?denies.?Discharge/drainage?denies.?Implants?denies.?Hard of hearing denies.?Difficulty chewing/swallowing/speaking?denies.?Nose bleeds?denies.?Sore mouth?denies.?Swollen glands?denies.?Respiratory:?On Oxygen?denies.?Pneumonia/pleurisy?denies.?Bronchitis?denies.?Emphysema?denies.?C oughing?denies.?Cough blood?denies.?Shortness of breath?denies.?Wheezing?denies.?Cardiovascular:?Pacemaker?denies.?MVP?denies.?WPW?denies.?CHF?denies.?Heart attack?denies.?Septal defect?denies.?Rapid beat?denies.?Chest pain ?denies.?Atrial Fib.?denies.?Murmur/Palpitations?denies.?Gastrointestinal:?Hemorrhoids?denies.?Stomach/Abdominal pain?denies.?Dark blood stool?denies.?Irritable bowel ?denies.?Constipation?denies.?Diarrhea?denies.?Vomiting?denies.?Hematology:?Swelling?denies.?Bruising?denies.?Bleeding problem?denies.?Genitourinary:?Blood urine?denies.?Frequent/Painfu/urination/bladder control?denies.?Kidney stones?denies.?Infection (UTI)?denies.?Nephropathy?admits.?Musculoskeletal:?Hammertoes?admits.?Bunions?denies.?Scoliosis/kyphosis?denies.?Muscle cramps / walking?denies.?Generalized aches and pains?denies.?Weakness?denies.?Integ.:?Mann?denies.?Scars?denies.?Corns/calluses?denies.?Ingrown nails?denies.?Painful nails?admits.?Rashes?denies.?Neurologic:?Difficulty sleeping?denies.?Bipolar?denies.?Brain disorder?denies.?Balance trouble?denies.?Confusion?denies.?Fainting/blackouts?denies.?Headache?denies.?Tr emors?denies.? * Medical History:? * Surgical History:?cataract r emoval left total hip replacement 02/23/2015R shoulder replacement 03/27/2017 * Hospitalization/Major Diagno stic Procedure:?Denies Past Hospitalization * Family History:?Mother: dece ased, diagnosed with Unspecified essential hypertension.?Father: , diagnosed with Other specified conditions influencing health status.?Siblings: diabetes mellitus.? * Social History:?Tobacco Use:?Tobacco Use/Smoking?Are you a:?nonsmoker ?Additional Findings: Tobacco Non-User?Current non-smoker ?Tobacco use other than smoking?Are you an other tobacco user??No ???Drugs/Alcohol:?Drugs?Have you used drugs other than those for medical reasons in the past 12 months??No ?Alcohol Screen?Did you have a drink containing alcohol in the past year??Yes ?How often did you have a drink containing alcohol in the past year??Monthly or less (1 point) ?Points?1 ?Interpretation?Negative ???Miscellaneous:?no Caffeine, decafe, 1-2 sometimes. ?no Children. ?no Exercise. ?Marital status: . 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 * Medications:?TakingTacrolimu s 0.1 % Ointment 1 application Externally Once a dayRosuvastatin Calcium Ozempic metFORMIN HCl Losartan Potassium Naproxen 500 MG Tablet 1 tablet as needed Orally every 12 hrshydrALAZINE HCl 75mg Tablet 1 tablet Orally 3 times a dayMetoprolol & Diet Manage Prod hydroCHLOROthiazide Spironolactone Iron 325 (65 Fe) MG Tablet 1 tablet Orally Once a dayExtra Depth Orthopedic Shoes (1 Pair) with Customized Heat Molded Multidensity Innersoles (3 Pair) as directed Dx: NIDDM/Polyneuropathy (E11.42), Hammertoe Foot Deformity (M20.41,M20.42), Preulcerative Skin Lesion(s) (L85.1Ciclopirox Olamine 0.77 % Cream 1 application Externally Twice a dayExtra Depth Orthopedic Shoes (1 Pair) with Customized Heat Molded Multidensity Innersoles (3 Pair) as directed Dx: NIDDM/Polyneuropathy (E11.42), Hammertoe Foot Deformity (M20.41,M20.42), Preulcerative Skin Lesion(s) (L85.1Taking Tacrolimus 0.1 % Ointment 1 application Externally Once a dayTaking Rosuvastatin Calcium Taking Ozempic Taking metFORMIN HCl Taking Losartan Potassium Taking Naproxen 500 MG Tablet 1 tablet as needed Orally every 12 hrsTaking hydrALAZINE HCl 75mg Tablet 1 tablet Orally 3 times a dayTaking Metoprolol & Diet Manage Prod Taking hydroCHLOROthiazide Taking Spironolactone Taking Iron 325 (65 Fe) MG Tablet 1 tablet Orally Once a dayTaking Extra Depth Orthopedic Shoes (1 Pair) with Customized Heat Molded Multidensity Innersoles (3 Pair) as directed Dx: NIDDM/Polyneuropathy (E11.42), Hammertoe Foot Deformity (M20.41,M20.42), Preulcerative Skin Lesion(s) (L85.1Taking Ciclopirox Olamine 0.77 % Cream 1 application Externally Twice a dayTaking Extra Depth Orthopedic Shoes (1 Pair) with Customized Heat Molded Multidensity Innersoles (3 Pair) as directed Dx: NIDDM/Polyneuropathy (E11.42), Hammertoe Foot Deformity (M20.41,M20.42), Preulcerative Skin Lesion(s) (L85.1Not-Taking/PRNAmmonium Lactate 12 % Cream 1 application Externally Twice a dayMeloxicam 15 MG Tablet Orally Extra Depth Orthopedic Shoes (1 Pair) with Customized Heat Molded Multidensity Innersoles (3 Pair) as directed Dx: NIDDM/Polyneuropathy (E11.42), Hammertoe Foot Deformity (M20.41,M20.42), Preulcerative Skin Lesion(s) (L85.1Ciclopirox Olamine 0.77 % Cream 1 application to affected area Externally to feet Twice a dayExtra Depth Orthopedic Shoes (1 Pair) with Customized Heat Molded Multidensity Innersoles (3 Pair) as directed Dx: NIDDM/Polyneuropathy (E11.42), Hammertoe Foot Deformity (M20.41,M20.42), Preulcerative Skin Lesion(s) (L85.1Extra Depth Orthopedic Shoes (1 Pair) with Customized Heat Molded Multidensity Innersoles (3 Pair) as directed Dx: NIDDM/Polyneuropathy (E11.42), Hammertoe Foot Deformity (M20.41,M20.42), Preulcerative Skin Lesion(s) (L85.1Bactrim DS 800-160 MG Tablet 1 tablet Orally Twice a dayMupirocin 2 % Ointment 1 application Externally Once a dayCiclopirox Olamine 0.77 % Cream 1 application Externally Twice a dayTrulicity 0.75 MG/0.5ML Solution Pen-injector as directed Subcutaneous Alogliptin Benzoate 25 MG Tablet Orally traMADol HCl Bactrim DS 800-160 MG Tablet 1 tablet Orally Twice a daysAXagliptin HCl Bactrim DS 800-160 MG Tablet 1 tablet Orally Twice a dayCipro 500 MG Tablet 1 tablet Orally every 12 hrsCipro 500 MG Tablet 1 tablet Orally every 12 hrsExtra Depth Orthopedic Shoes (1 Pair) with Customized Heat Molded Multidensity Innersoles (3 Pair) as directed Dx: NIDDM/Polyneuropathy (E11.42), Hammertoe Foot Deformity (M20.41,M20.42), Preulcerative Skin Lesion(s) (L85.1Extra-Depth Diabetic Shoes with 3 Pair Custom heat-molded multi-density innersoles Ciclopirox Olamine 0.77% Cream external Apply to effected areas twice a dayOxyCONTIN Januvia 50 MG Tablet 1 tablet Orally Once a dayCeleBREX 200 MG Capsule Orally Extra-Depth Diabetic Shoes with 3 Pair Custom heat-molded multi-density innersoles . . for 1 year . Dx:hammerotes and calloused lesionsExtra Depth Orthopedic Shoes (1 Pair) with Customized Heat Molded Multidensity Innersoles (3 Pair) as directed Dx: NIDDM/Polyneuropathy (E11.42), Hammertoe Foot Deformity (M20.41,M20.42), Preulcerative Skin Lesion(s) (L85.1Medication List reviewed and reconciled with the patientNot-Taking/PRN Ammonium Lactate 12 % Cream 1 application Externally Twice a dayNot-Taking/PRN Meloxicam 15 MG Tablet Orally Not-Taking/PRN Extra Depth Orthopedic Shoes (1 Pair) with Customized Heat Molded Multidensity Innersoles (3 Pair) as directed Dx: NIDDM/Polyneuropathy (E11.42), Hammertoe Foot Deformity (M20.41,M20.42), Preulcerative Skin Lesion(s) (L85.1Not-Taking/PRN Ciclopirox Olamine 0.77 % Cream 1 application to affected area Externally to feet Twice a dayNot-Taking/PRN Extra Depth Orthopedic Shoes (1 Pair) with Customized Heat Molded Multidensity Innersoles (3 Pair) as directed Dx: NIDDM/Polyneuropathy (E11.42), Hammertoe Foot Deformity (M20.41,M20.42), Preulcerative Skin Lesion(s) (L85.1Not-Taking/PRN Extra Depth Orthopedic Shoes (1 Pair) with Customized Heat Molded Multidensity Innersoles (3 Pair) as directed Dx: NIDDM/Polyneuropathy (E11.42), Hammertoe Foot Deformity (M20.41,M20.42), Preulcerative Skin Lesion(s) (L85.1Not-Taking/PRN Bactrim DS 800-160 MG Tablet 1 tablet Orally Twice a dayNot-Taking/PRN Mupirocin 2 % Ointment 1 application Externally Once a dayNot-Taking/PRN Ciclopirox Olamine 0.77 % Cream 1 application Externally Twice a dayNot-Taking/PRN Trulicity 0.75 MG/0.5ML Solution Pen- injector as directed Subcutaneous Not-Taking/PRN Alogliptin Benzoate 25 MG Tablet Orally Not-Taking/PRN traMADol HCl Not-Taking/PRN Bactrim DS 800-160 MG Tablet 1 tablet Orally Twice a dayNot-Taking/PRN sAXagliptin HCl Not-Taking/PRN Bactrim DS 800- 160 MG Tablet 1 tablet Orally Twice a dayNot-Taking/PRN Cipro 500 MG Tablet 1 tablet Orally every 12 hrsNot-Taking/PRN Cipro 500 MG Tablet 1 tablet Orally every 12 hrsNot-Taking/PRN Extra Depth Orthopedic Shoes (1 Pair) with Customized Heat Molded Multidensity Innersoles (3 Pair) as directed Dx: NIDDM/Polyneuropathy (E11.42), Hammertoe Foot Deformity (M20.41,M20.42), Preulcerative Skin Lesion(s) (L85.1Not-Taking/PRN Extra-Depth Diabetic Shoes with 3 Pair Custom heat-molded multi-density innersoles Not-Taking/PRN Ciclopirox Olamine 0.77% Cream external Apply to effected areas twice a dayNot-Taking/PRN OxyCONTIN Not-Taking/PRN Januvia 50 MG Tablet 1 tablet Orally Once a dayNot-Taking/PRN CeleBREX 200 MG Capsule Orally Not-Taking/PRN Extra-Depth Diabetic Shoes with 3 Pair Custom heat-molded multi-density innersoles . . for 1 year . Dx:hammerotes and calloused lesionsNot-Taking/PRN Extra Depth Orthopedic Shoes (1 Pair) with Customized Heat Molded Multidensity Innersoles (3 Pair) as directed Dx: NIDDM/Polyneuropathy (E11.42), Hammertoe Foot Deformity (M20.41,M20.42), Preulcerative Skin Lesion(s) (L85.1Medication List reviewed and reconciled with the patient * Allergies:?N.K.D.A.yes[Aller gies Verified] Objective: * Vitals:?Ht: 6 ft, Wt: 214, B NC: 29.02, Shoe size: 12W, BS: 163, Wt-k.07 kg. * ???Past Orders: ???Lab:HEMOGLOBIN A1C (GLYCO HEMOGLOBIN) (Order Date - 04/27/2023) (Collection Date - 04/27/2023) ? Value Reference Range ?HEMOGLOBIN A1C % (HH) 5.8 * Examination: ???Ophthalmology Referral: ?DIABETES EYE EXAM?Dermatologic: ?ULCER:?LOCATION, HEEL, left, SIZE, 20mm X 15 mm X 2mm, BASE, granular, RIM, hyperkeratotic, UNDERMINING, absent, TRACKING, Full thickness breakdown of skin, DRAINAGE, serosanguineous, mild, NECROTIC TISSUE, loosely-adherent, yellow slough, MALODOR, absent, CALOR, absent, ERYTHEMA, absent,pain on palp..?General Examination: ?GENERAL APPEARANCE:?Reveals a pleasant, alert, well nourished, well- developed, well hydrated individual, who demonstrates proper attention to hygiene/body habitus, and is in no acute distress, Pt serves as own historian for office visit today , Denies fever, chills, malaise, lymphadenopathy.?FOOT EXAM:?Footwear Evaluation?Neurological: ?SENSORY:? Neurological exam demonstrates, reduced vibration sensation, reduced light touch sensation, reduced vibration sensation, 5.07 monofilament test performed at plantar aspects of 5 varied sites per foot shows sensation, absent, at Forefoot, B/L.?Vascular: ?DP PULSES:?2/4, B/L.?PT PULSES:?2/4, B/L.? Assessment: * Assessment: 1.?Non-pressure chronic ulce r of left heel and midfoot limited to breakdown of skin - L97.421, Acute problem, Complicated w/ Multiple Tx Options(4)?2.?Type 2 diabetes mellitus with diabetic polyneuropathy - E11.42? Plan: * Treatment: * Procedure Codes:? * Preventive Medicine:? ??Counseling:?Discussion:?-14: Office or other outpatient visit for the evaluation and management of an established patient, which required a medically appropriate history and/or examination and MODERATE level of DECISION MAKING for: 1 OR MORE CHRONIC PROBLEM(S) THATS WORSENING, 2 STABLE CHRONIC PROBLEMS, A NEWLY DIAGNOSED PROBLEM WITH UNCERTAIN PROGNOSIS, AN ACUTE COMPLICATED INJURY WITH MULTIPLE TREATMENT OPTIONS, OR AN ACUTE PROBLEM WITH ACCOMPANYING SYSTEMIC SYMPTOMS, THAT POSE(S) A MODERATE RISK OF MORBIDITY. THIS CONDITION MAY ALSO INCLUDE RX DRUG MANAGEMENT, OR A DECISON FOR MINOR SURGERY. The visit on the day of the encounter encompassed interpreting the data and educating the patient as to the nature of their condition, treatment options available according to their individual PMH, meds, allergies, and overall health/living conditions, as well as any potential risks or complications that may occur from a failure to adhere to, and participate in, the recommended course of therapy. The discussion included a complete verbal, and/or written explanation of the examination results, any x-rays taken, the proposed diagnosis, and outline of the treatment plan. A schedule for future care needs was also explained. The patient verbalized an understanding of the instructions at this time and agreed to be an active participant in their treatment. If the patient should think of any questions or concerns after the visit, I have encouraged the patient to call the office.?Ulcer:?A detailed plan of care was reviewed with the patient. We emphasized the fact that the patient takes on an active participating role in the treatment process and emphasized to them that they are an included, valued, and important member of the wound healing team in order to reach an expedient successful outcome. The patient agreed to follow their medically recommended diet while increasing their protein intake if safely able to do so, maintain proper bodily hydaration, abide by weight-bearing restrictions at all times, quit all current smoking habits if any, and diligently follow any/all dressing change instructions. It was clearly made known to the patient that if they fail to do their part, they will likely extend their course of treatment as well as possibly increase their risk of adverse events including amputation. The patient was instructed on importance of proper wound care consisting of pressure reduction, and proper maintainance of a moist wound environment. The patient is to cleanse the wound with warm soapy water/peroxide/saline, or betadine BID based on product availability. The patient is to apply ( Rx Betadine solution and allevyn dressing ) Antibiotic to the wound and cover with a DSD as directed. The patient was instructed to change dressings according to orders, or PRN saturation, leaks. The patient was instructed to monitor and report any signs or symptoms of infection or any untoward reactions. Precautions Taken: Offloading/Pressure reduction via rest/ limited activity to essential to daily life only, cane/ crutches/ walker/ knee scooter/ wheel chair, shoe modification, accommodative padding, sharp debridement, and take/apply medication as directed. THE GOALS of wound debridement to remove devitilized tissue, decrease risk for infection, promote wound healing and prevent further complication were discussed/reviewed., The wound was not debrided due to impending consult appointment, Referral to [facility] due to pedal risk of limb/life, [place].? * Follow Up:?as scheduled * Images: * Sign off status: Completed true * Provider:?Sussy Lowery DPM Date:?2023 Generated for Duaneanthony schrader/Yang/eTransmitting on:?05/23/2024 08:18 AM EST History and Physical Notes * HPI (History of Present Illness) Category Sub-Category Detail Notes Category Not es Skin problems Nature: Open sore Location: Heel/Rearfoot , Left Duration: unknown Onset/Cause: unknown Course: worse Aggravated by: any pressure , stand ing , walking Treatments: none Examination Category Sub-Category Detail Notes Category Not es Neurological SENSORY: Neurological exa m demonstrates, reduced vibration sensation, reduced light touch sensation, reduced vibration sensation, 5.07 monofilament test performed at plantar aspects of 5 varied sites per foot shows sensation, absent, at Forefoot, B/L Dermatologic ULCER: LOCATION, HEEL, left, SIZE, 20mm X 15 mm X 2mm, BASE, granular, RIM, hyperkeratotic, UNDERMINING, absent, TRACKING, Full thickness breakdown of skin, DRAINAGE, serosanguineous, mild, NECROTIC TISSUE, loosely-adherent, yellow slough, MALODOR, absent, CALOR, absent, ERYTHEMA, absent,pain on palp. General Examination GENERAL APPEARANCE: Reveals a pleasant, alert, well nourished, well-developed, well hydrated individual, who demonstrates proper attention to hygiene/body habitus, and is in no acute distress, Pt serves as own historian for office visit today , Denies fever, chills, malaise, lymphadenopathy FOOT EXAM: Lower Extremity Neurological Exa m performed:: Yes Footwear Evaluation Footwear Evaluation performe d:: Yes Ophthalmology Referral DIABETES EYE EXAM Diabetic Retinopa thy Screening:: Yes Findings of Diabetic Eye Exam:: retinopa thy Vascular DP PULSES (B): 2/4, B/L PT PULSES (B): 2/4, B/L
--- OUTSIDE RECORDS SUMMARY | 2024-05-23 08:18 | XMS_ITS ---
Author Organization [facility] Address [address] [place] [address] Care Team Providers Care Child Life Specialist Name Role Phone Marina MCDANIELS, Nubia Zelaya Primary Care Provider Un available Black, Sussy Unavailable [phone] Allergies No Known Allergies REASON FOR VISIT Open sore, At Risk Footcare, Toe Irritation Medications Medication SIG (Take, Route, Frequency, Duration) Notes Start Date End Date Status Meloxicam 15 MG Orally Not- Taking Ciclopirox Olamine 0.77 % 1 application to affected area Externally to feet Twice a day for 30 days Not-Taking Extra Depth Orthopedic Shoes (1 Pair) with Customized Heat Molded Multidensity Innersoles (3 Pair) as directed Dx: NIDDM/Polyneuropathy (E11.42), Hammertoe Foot Deformity (M20.41,M20.42), Preulcerative Skin Lesion(s) (L85.1 09/11/2022 Not-Taking Extra Depth Orthopedic Shoes (1 Pair) with Customized Heat Molded Multidensity Innersoles (3 Pair) as directed Dx: NIDDM/Polyneuropathy (E11.42), Hammertoe Foot Deformity (M20.41,M20.42), Preulcerative Skin Lesion(s) (L85.1 03/06/2019 Not-Taking Extra Depth Orthopedic Shoes (1 Pair) with Customized Heat Molded Multidensity Innersoles (3 Pair) as directed Dx: NIDDM/Polyneuropathy (E11.42), Hammertoe Foot Deformity (M20.41,M20.42), Preulcerative Skin Lesion(s) (L85.1 02/21/2018 Not-Taking Ammonium Lactate 12 % 1 application Externally Twice a day for 30 days Not-Taking Ciclopirox Olamine 0.77 % 1 application Externally Twice a day for 30 days 08/25/2021 Active Extra Depth Orthopedic Shoes (1 Pair) with Customized Heat Molded Multidensity Innersoles (3 Pair) as directed Dx: NIDDM/Polyneuropathy (E11.42), Hammertoe Foot Deformity (M20.41,M20.42), Preulcerative Skin Lesion(s) (L85.1 08/25/2021 Active Betadine 10 % Apply a light layer to affected area on foot as needed Externally 3 time(s) a day for 10 days 11/19/2023 Active Extra Depth Orthopedic Shoes (1 Pair) with Customized Heat Molded Multidensity Innersoles (3 Pair) as directed Dx: NIDDM/Polyneuropathy (E11.42), Hammertoe Foot Deformity (M20.41,M20.42), Preulcerative Skin Lesion(s) (L85.1 10/25/2023 Active Metoprolol & Diet Manage Prod Active hydrALAZINE HCl 75mg 1 tablet Orally 3 times a day Active Spironolactone Activ e hydroCHLOROthiazide Active Iron 325 (65 Fe) MG 1 tablet Orally Once a day Active Naproxen 500 MG 1 tablet as needed Orally every 12 hrs Active Losartan Potassium A ctive Rosuvastatin Calcium Active metFORMIN HCl Active Ozempic Active Extra Depth Orthopedic Shoes (1 Pair) [...] 1 tablet Orally Once a day Not-Taking Tacrolimus 0.1 % 1 application Externally Once a day Active OxyCONTIN Not-Taking Ciclopirox Olamine 0.77% external Apply to effected areas twice a day for 30 days 12/18/2013 Not-Taking Cipro 500 MG 1 tablet Orally ever y 12 hrs for 10 day(s) 12/22/2019 Not-Taking Extra-Depth Diabetic Shoes with 3 Pair Custom heat-molded multi-density innersoles Not-Taking Extra Depth Orthopedic Shoes (1 Pair) with Customized Heat Molded Multidensity Innersoles (3 Pair) as directed Dx: NIDDM/Polyneuropathy (E11.42), Hammertoe Foot Deformity (M20.41,M20.42), Preulcerative Skin Lesion(s) (L85.1 01/11/2017 Not-Taking sAXagliptin HCl Not- Taking Bactrim DS [...] a day for 10 day(s) 11/24/2021 Not-Taking Social History Tobacco Use: Social History Observation Description Date Details (start date - stop date) Never Smoker NA - NA Tobacco Use/Smoking Question Answer Notes Are you a: nonsmoker Additional Findings: Tobacco Non-User Current no n-smoker Tobacco use other than smoking: Question Answer Notes Are you an other tobacco user? No Vital Signs Height 6 ft in 02/14/2024 Weight 223 lbs 02/14/2024 BMI 30.24 kg/m2 02/14/2024 Blood pressure systolic 110 mm Hg 02/14/20 24 Blood pressure diastolic 70 mm Hg 024 Procedures Procedure Date Ordered Date Performed Result Body Sit e 32703-HBPBOTV NAIL, 6 OR MORE 02/14/2024 N/A 32899- Debride <25 sq cm 02/14/2024 N/A 22274-HQCZ SKIN LESIONS, OVER 4 02/14/2024 N/A Encounters Encounter Location Date Provider Diagnosis [facility] [address] [address] 02/14/2024 Sussy Lowery 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 ; Other hammer toe(s) (acquired), right foot M20.41 ; Type 2 diabetes mellitus with diabetic polyneuropathy E11.42 ; Tinea unguium B35.1 and Other hammer toe(s) (acquired), left foot M20.42 Assessments Encounter Date Diagnosis (ICD Code) Assessment Notes Treatment Notes Treatment Clinical Notes Section Notes 02/14/2024 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 breakdown of skin (ICD-10 - L97.421) 02/14/2024 Other hammer toe(s) (acquired), right foot (ICD-10 - M20.41) Patient Educated with: DIABETIC FOOT CARE INSTRUCTIONS. pdf (DIABETIC FOOT CARE INSTRUCTIONS. pdf) 02/14/2024 Type 2 diabetes mellitus with diabetic polyneuropathy (ICD-10 - E11.42) 02/14/2024 Tinea unguium (ICD-10 - B35.1) 02/14/2024 Other hammer toe(s) (acquired), left foot (ICD-10 - M20.42) Plan Of Treatment Treatment Notes Assessment Notes Other hammer toe(s) (acquired), right fo ot Patient Educated with: DIABETIC FOOT CARE INSTRUCTIONS.pdf (DIABETIC FOOT CARE INSTRUCTIONS.pdf) Pending Test Test Name Order Date 14315-UYIEIXX NAIL, 6 OR MORE 02/14/2024 21318- Debride <25 sq cm 02/14/2024 19104-ZUQM SKIN LESIONS, OVER 4 02/14/20 24 Next Appt Details Follow Up: 3 Months, Reason: Provider Name:Sussy Lowery , 06/02/2024 04:00:00 PM, [address] [place] [address], [phone], Procedure Notes * Category Sub-Category Detail Notes Debride Nail 6-10 Nail debridement Nail debridem ent performed extensively to reduce/remove overall nail length and girth, subungual debris, and necrotic tissue, by manual and electrical means with use of a nail nipper and/or dremel, to more viable healthy nail plate or bed tissue 6-10. Silver nitrate used for any petechial bleeding as necessary. Patient chooses, no pharmaceutical tx (03060) Debride skin< 25 sq cm Open wound NEUROPATH Y: Physician of record performed open wound selective debridement of first 25 sq cm or less, of devitilized necrotic/nonviable soft tissue, fibrin, and exudate extending from the epidermis through the dermis, utilizing sharp dissection with sterile 15 blade, and/or tissue nippers. Hemostasis was controlled through direct pressure. Sterile antibiotic dressing applied, ANESTHESIA was not required due to presence of NEUROPATHY. Post debridement measurements:12mm x10mm x 2 mm. Character of the wound post debridement is stable (27715) Keratoma Treatment Parring or Cutting o f Benign Hyperkeratotic Lesion(s) 08302 ( >4 Lesions) - The Benign hyperkeratotic lesions, as described above were pared, and/or cut utilizing a sterile #15 blade, tissue nippers, and/or dremel Progress Notes * Tobin AMOSDOB:1945 ( 78 yo M)Acc No.[id number]:02/14/2024 Progress Note Patient:Tobin Stevenson Provider:?Sussy Lowery DPM :1945???Age:78 Y???Sex:Male Romeo e:02/14/2024 Address:[address] [place] [id number] Pcp:Jayjay Graham Subjective: * Chief Complaints: * ???Open soreAt Risk Footcare Toe Irritation * HPI: ???Skin problems:?Nature:?Open sore.?Location:?Heel/Rearfoot , Left.?Duration:?unknown.?Onset/Cause:?unknown.?Course:?, improved.?Aggravated by:?any pressure , standing , walking.?Treatments:?none.?At Risk footcare:?Pt States Last PCP Visit:?Date?09/21/2023 ???Toe pain:?Location:?B/L feet.?Duration:?several years.?Course:?, improved.?Aggravated by:?shoes, any pressure.?Treatments:?change in shoes ( diabetic shoes however no inserts were given).? * ROS:?General/Constitutional:?Nausea?denies.?Vomiting?denies.?Hunger Thirst?denies.?Loss appetite?denies.?Chills?denies.?Fatigue?denies.?Fever?denies.?Night Sweats?denies.?Unexplained weight loss?denies.?Ophthalmologic:?Blurred [...] than smoking?Are you an other tobacco user??No ???Miscellaneous:?no Caffeine, decafe, 1-2 sometimes. ?no Children. ?no Exercise. ?Marital status: . 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 * Medications:?TakingTacrolimu s 0.1 % Ointment [...] Hammertoe Foot Deformity (M20.41,M20.42), Preulcerative Skin Lesion(s) (L85.1Betadine 10 % Solution Apply a light layer to affected area on foot as needed Externally 3 time(s) a dayTaking Tacrolimus 0.1 % Ointment 1 application Externally [...] Foot Deformity (M20.41,M20.42), Preulcerative Skin Lesion(s) (L85.1Taking Betadine 10 % Solution Apply a light layer to affected area on foot as needed Externally 3 time(s) a dayNot- Taking/PRNAmmonium Lactate 12 % Cream 1 application Externally [...] Verified] Objective: * Vitals:?Ht: 6 ft, Wt: 223, B ME: 30.24, Shoe size: 12W, BP: 110/70 mm Hg, BS: 101, Wt-k.15 kg. * ???Past Orders: ???Lab:HEMOGLOBIN A1C (GLYCO HEMOGLOBIN) (Order Date - 04/27/2023) (Collection Date - 04/27/2023) ? Value Reference Range ?HEMOGLOBIN A1C % (HH) 5.8 * Examination: ???Ophthalmology Referral: ?DIABETES EYE EXAM?Dermatologic: ?SKIN FINDINGS:?skin exam reveals keratotic lesion(s) located at, SUB MTH (s), 1, 5, B/L , Heel(s) ,right.?ULCER:?LOCATION, HEEL, left, SIZE, 8mm X 8mm X 2mm, BASE, granular, RIM, hyperkeratotic, UNDERMINING, absent, TRACKING, Full thickness breakdown of skin, DRAINAGE, serosanguineous, mild, NECROTIC TISSUE, loosely-adherent, yellow slough, MALODOR, absent, CALOR, absent, ERYTHEMA, absent,pain on palp..?Neurological: ?SENSORY:? Neurological exam demonstrates, reduced vibration sensation, reduced light touch sensation, reduced vibration sensation, 5.07 monofilament test performed at plantar aspects of 5 varied sites per foot shows sensation, absent, at Forefoot, B/L , Neurological exam demonstrates, reduced vibration sensation, reduced light touch sensation, reduced vibration sensation, 5.07 monofilament test performed at plantar aspects of 5 varied sites per foot shows sensation, absent, at Forefoot, B/L.?Vascular: ?DP PULSES(B):?2/4, B/L , 2/4, B/L.?PT PULSES(B):?2/4, B/L , 2/4, B/L.?Nails: ?NAILS are:?elongated,overgrown,dystrophic,greater than 3mm thick,discolored and friable with crumbly malodorous subungual debris, with dull to no pain on palpation due to neuropathy, , , 1-5 B/L.?Orthopedic: ?DIGITAL DEFORMITIES:?Digital contracture, PIPJ, 2-5 B/L, incompl-reducible to push-up test, no over, nor underlapping, with? NO evidence of shoe producing skin irritation.?FOOTWEAR:?, good condition accommodating for pts pedal deformities.? Assessment: * Assessment: 1.?Other hammer toe(s) (acqu ired), right foot - M20.41 (Primary)?2.?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 breakdown of skin - L97.421, \?3.?Type 2 diabetes mellitus with diabetic polyneuropathy - E11.42?4.?Tinea unguium - B35.1?5.?Other hammer toe(s) (acquired), left foot - M20.42, Response to treatment - Improvement? Plan: * Treatment: 2.?Non-pressure chronic ulce r of left heel and midfoot limited to breakdown of skin?Procedure: 60936- Debride <25 sq cm 3.?Type 2 diabetes mellitus with diabetic polyneuropathy?Procedure: 73170-BVLR SKIN LESIONS, OVER 4 4.?Tinea unguium?Procedure: 44229-ZDBCBUI NAIL, 6 OR MORE * Procedures:?Debride Nail 6-10:?Nail debridement?Nail debridement performed extensively to reduce/remove overall nail length and girth, subungual debris, and necrotic tissue, by manual and electrical means with use of a nail nipper and/or dremel, to more viable healthy nail plate or bed tissue 6-10. Silver nitrate used for any petechial bleeding as necessary. Patient chooses, no pharmaceutical tx (12386).?Debride skin< 25 sq cm:?Open wound?NEUROPATHY: Physician of record performed open wound selective debridement of first 25 sq cm or less, of devitilized necrotic/nonviable soft tissue, fibrin, and exudate extending from the epidermis through the dermis, utilizing sharp dissection with sterile 15 blade, and/or tissue nippers. Hemostasis was controlled through direct pressure. Sterile antibiotic dressing applied, ANESTHESIA was not required due to presence of NEUROPATHY. Post debridement measurements:12mm x10mm x 2 mm. Character of the wound post debridement is stable (37003).?Keratoma Treatment:?Parring or Cutting of Benign Hyperkeratotic Lesion(s)?72914 ( >4 Lesions) - The Benign hyperkeratotic lesions, as described above were pared, and/or cut utilizing a sterile #15 blade, tissue nippers, and/or dremel.? * Procedure Codes:?94440 DEBRI DE NAIL, 6 OR MORE, Modifiers: XS 04809 TRIM SKIN LESIONS, OVER 4, Modifiers: XS 74796 ACTIVE WOUND CARE/20 CM OR <, Modifiers: XS * Preventive Medicine:? ??Counseling:?Discussion:?-12: Office or other outpatient visit for the evaluation and management of an established patient, which required a medically appropriate history and/or examination and STRAIGHTFORWARD level of MEDICAL DECISION MAKING, 1 SELF-LIMITED OR MINOR PROBLEM, MINIMAL- NO AMOUNT/COMPLEXITY OF DATA TO BE REVIEWED/ANALYZED, AND MINIMAL RISK OF COMPLICATION/MORBIDITY. The visit on the day of the [...] have encouraged the patient to call the office, Patients podiatric issue has improved, they should call the office with any future issues or concerns.?Ulcer:?Given recent successful results to treatment, The patient is to cont the local wound care as directed, Debridement frequency as indicated, Every 9-12 weeks until healed.? * Follow Up:?3 Months * Images: * Sign off status: Completed true * Provider:?Sussy Lowery DPM Date:?2023 Generated for Tu schrader/Yang/Shiraitting on:?05/23/2024 08:17 AM EST History and Physical Notes * HPI (History of Present Illness) Category Sub-Category Detail Notes Category Not es Toe pain Location: B/L feet Duration: several years Course: , improved Aggravated by: shoes, any pressure Treatments: change in shoes ( di abetic shoes however no inserts were given) Skin problems Nature: Open sore Location: Heel/Rearfoot , Left Duration: unknown Onset/Cause: unknown Course: , improved Aggravated by: any pressure , stand ing , walking Treatments: none At Risk footcare Pt States Last PCP Visit: Date: 4 Examination Category Sub-Category Detail Notes Category Not es Ingrown Nail INSPECTION: Neurological SENSORY: Neurological exa m demonstrates, reduced vibration sensation, reduced light touch sensation, reduced vibration sensation, 5.07 monofilament test performed at plantar aspects of 5 varied sites per foot shows sensation, absent, at Forefoot, B/L , Neurological exam demonstrates, reduced vibration sensation, reduced light touch sensation, reduced vibration sensation, 5.07 monofilament test performed at plantar aspects of 5 varied sites per foot shows sensation, absent, at Forefoot, B/L Dermatologic SKIN FINDINGS: skin exam reveal s keratotic lesion(s) located at, SUB MTH (s), 1, 5, B/L , Heel(s) ,right ULCER: LOCATION, HEEL, left , SIZE, 8mm X 8mm X 2mm, BASE, granular, RIM, hyperkeratotic, UNDERMINING, absent, TRACKING, Full thickness breakdown of skin, DRAINAGE, serosanguineous, mild, NECROTIC TISSUE, loosely-adherent, yellow slough, MALODOR, absent, CALOR, absent, ERYTHEMA, absent,pain on palp. Orthopedic FOOTWEAR: , good condition accommodati ng for pts pedal deformities DIGITAL DEFORMITIES: Digital contracture , PIPJ, 2-5 B/L, incompl-reducible to push-up test, no over, nor underlapping, with NO evidence of shoe producing skin irritation Ophthalmology Referral DIABETES EYE EXAM Diabetic Retinopa thy Screening:: Yes Findings of Diabetic Eye Exam:: retinopa thy Vascular DP PULSES (B): 2/4, B/L , 2/4, B/L PT PULSES (B): 2/4, B/L , 2/4, B/L Nails NAILS are: elongated,overgr own,dystrophic,greater than 3mm thick,discolored and friable with crumbly malodorous subungual debris, with dull to no pain on palpation due to neuropathy, , , 1-5 B/L Heel Pain INSPECTION:
--- OUTSIDE RECORDS SUMMARY | 2024-05-23 08:18 | XMS_ITS | Patient Health Record ---
Author Organization [facility] Address [address] [facility] [place] [address] Care Team Providers Care Architectural Modeler Name Role Phone Marina MCDANIELS, Nubia Zelaya Primary Care Provider Un available Black, Sussy Unavailable [phone] Allergies No Known Allergies Reason For Referral No Information Medications Medication SIG (Take, Route, Frequency, Duration) Notes Start Date End Date Status sAXagliptin HCl Not- Taking Bactrim DS 800-160 MG 1 tablet Orally Tw ice a day for 10 day(s) 03/19/2020 Not-Taking Cipro 500 MG 1 tablet Orally ever y 12 hrs for 10 day(s) 01/19/2020 Not-Taking Bactrim DS 800-160 MG 1 tablet Orally Tw ice a day for 10 day(s) 12/18/2019 Not-Taking Trulicity 0.75 MG/0.5ML as directed Subcutaneous Not-Taking Ciclopirox Olamine 0.77 % 1 application Externally Twice a day for 30 days 09/18/2019 Not-Taking traMADol HCl Not-Erick ing Alogliptin Benzoate 25 MG Orally Not-Taking Spironolactone Activ e hydroCHLOROthiazide Active Mupirocin 2 % 1 application Externally Once a day for 30 days 11/24/2021 Not-Taking Iron 325 (65 Fe) MG 1 tablet Orally Once a day Active Bactrim DS 800-160 MG 1 tablet Orally Tw ice a day for 10 day(s) 11/24/2021 Not-Taking Naproxen 500 MG 1 tablet as needed Orally every 12 hrs Active Losartan Potassium A ctive Metoprolol & Diet Manage Prod Active hydrALAZINE HCl 75mg 1 tablet Orally 3 times a day Active Rosuvastatin Calcium Active metFORMIN HCl Active Ozempic Active Extra Depth Orthopedic Shoes (1 Pair) with Customized Heat Molded Multidensity Innersoles (3 Pair) as directed Dx: NIDDM/Polyneuropathy (E11.42), Hammertoe Foot Deformity (M20.41,M20.42), Preulcerative Skin Lesion(s) (L85.1 12/22/2015 Not-Taking Extra-Depth Diabetic Shoes with 3 Pair Custom heat-molded multi-density innersoles . for 1 year . Dx:hammerotes and calloused lesions for . 12/17/2014 Not-Taking OxyCONTIN Not-Taking Ciclopirox Olamine 0.77% external Apply to effected areas twice a day for 30 days 12/18/2013 Not-Taking CeleBREX 200 MG Orally Not- Taking Januvia 50 MG 1 tablet Orally Once a day Not-Taking Extra Depth Orthopedic Shoes (1 Pair) with Customized Heat Molded Multidensity Innersoles (3 Pair) as directed Dx: NIDDM/Polyneuropathy (E11.42), Hammertoe Foot Deformity (M20.41,M20.42), Preulcerative Skin Lesion(s) (L85.1 03/06/2019 Not-Taking Cipro 500 MG 1 tablet Orally ever y 12 hrs for 10 day(s) 12/22/2019 Not-Taking Extra Depth Orthopedic Shoes (1 Pair) with Customized Heat Molded Multidensity Innersoles (3 Pair) as directed Dx: NIDDM/Polyneuropathy (E11.42), Hammertoe Foot Deformity (M20.41,M20.42), Preulcerative Skin Lesion(s) (L85.1 02/21/2018 Not-Taking Tacrolimus 0.1 % 1 application Externally Once a day Active Extra-Depth Diabetic Shoes with 3 Pair Custom heat-molded multi-density innersoles Not-Taking Extra Depth Orthopedic Shoes (1 Pair) with Customized Heat Molded Multidensity Innersoles (3 Pair) as directed Dx: NIDDM/Polyneuropathy (E11.42), Hammertoe Foot Deformity (M20.41,M20.42), Preulcerative Skin Lesion(s) (L85.1 01/11/2017 Not-Taking Meloxicam 15 MG Orally Not- Taking Ammonium Lactate 12 % 1 application Externally Twice a day for 30 days Not-Taking Ciclopirox Olamine 0.77 % 1 application to affected area Externally to feet Twice a day for 30 days Not-Taking Extra Depth Orthopedic Shoes (1 Pair) with Customized Heat Molded Multidensity Innersoles (3 Pair) as directed Dx: NIDDM/Polyneuropathy (E11.42), Hammertoe Foot Deformity (M20.41,M20.42), Preulcerative Skin Lesion(s) (L85.1 09/11/2022 Not-Taking Ciclopirox Olamine 0.77 % 1 application [...] (M20.41,M20.42), Preulcerative Skin Lesion(s) (L85.1 10/25/2023 Active Immunizations Vaccine Route Administration Date Status Comme nts COVID-19 Moderna Vaccine Unknown 11/18/2020 Administere d 1st dose 08/14/2020 Influenza Unknown 03/23/2016 Pending Influenza Unknown 02/12/2017 Administered Influenza Unknown 03/28/2018 Administered Influenza Unknown 03/28/2019 Administered Influenza Unknown 02/11/2020 Administered Influenza Unknown 06/28/2022 Administered Social History Tobacco Use: Social History Observation [...] Problem Status W/U Status Risk Notes Problem Acquired hammer toe of right foot (0363607519200060) Other hammer toe(s) (acquired), right foot (M20.41) Active confirmed Problem Acquired hammer toe of left foot (7931800226981400) Other hammer toe(s) (acquired), left foot (M20.42) Active confirmed Problem Ulcer of toe (520566334) Non-pressure chronic ulcer of other part of left foot limited to breakdown of skin (L97.521) Active confirmed Problem Nonstageable pressure ulcer of left foot (37718168488823072) 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) Active confirmed Problem [id number] 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) Active confirmed Problem Acquired hammer toe of left foot (8372380225286700) Other hammer toe(s) (acquired), left foot (M20.42) Active confirmed Problem Polyneuropathy due to type 2 diabetes mellitus (108304562) Type 2 diabetes mellitus with diabetic polyneuropathy (E11.42) Active confirmed Problem 427942090 Hammer toe of left foot (M20.42) Active confirmed Problem Neuropathic ulcer of right heel, limited to breakdown of skin (L97.411) Active confirmed Response to treatment Vital Signs Blood pressure diastolic 70 mm Hg 02/14/2024 Height 6 ft in 02/14/2024 Blood pressure systolic 110 mm Hg 02/14/2024 Weight 223 lbs 02/14/2024 BMI 30.24 kg/m2 02/14/2024 Procedures Procedure Date Ordered Date Performed Result Body Sit e 47244-HHIAPRS NAIL, 6 OR MORE 06/21/2023 N/A 64079-Pczpbeqs Plate 06/21/2023 N/A 39363-TNXE SKIN LESIONS, OVER 4 06/21/2023 N/A 07044-HZOUMJO NAIL, 6 OR MORE 10/25/2023 N/A 81795-ZFKJ SKIN LESIONS, OVER 4 10/25/2023 N/A 13412-KNXNSNC NAIL, 6 OR MORE 02/14/2024 N/A 82628- Debride <25 sq cm 02/14/2024 N/A 04292-JFHC SKIN LESIONS, OVER 4 02/14/2024 N/A Encounters Encounter Location Date Provider Diagnosis [address] [address] 06/21/2023 Sussy Lowery Type 2 diabetes mellitus with diabetic polyneuropathy E11.42 ; Tinea unguium B35.1 and Ingrown nail L60.[address] [address] 10/25/2023 Sussyjesus Lowery Type 2 diabetes mellitus with diabetic polyneuropathy E11.42 ; Tinea unguium B35.1 ; Other hammer toe(s) (acquired), left foot M20.42 and Other hammer toe(s) (acquired), right foot M20.[address] [address] 11/19/2023 Sussy Lowery 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 and Type 2 diabetes mellitus with diabetic polyneuropathy E11.[address] [address] 02/14/2024 Sussy Loewry 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 ; Other hammer toe(s) (acquired), right foot M20.41 ; Type 2 diabetes mellitus with diabetic polyneuropathy E11.42 ; Tinea unguium B35.1 and Other hammer toe(s) (acquired), left foot M20.[address] [address] 11/19/2023 Sussy Lowery Assessments Encounter Date Diagnosis (ICD Code) Assessment Notes Treatment Notes Treatment Clinical Notes Section Notes 06/21/2023 Tinea unguium (ICD-10 - B35.1) 06/21/2023 Type 2 diabetes mellitus with diabetic polyneuropathy (ICD-10 - E11.42) 10/25/2023 Type 2 diabetes mellitus with diabetic polyneuropathy (ICD-10 - E11.42) 11/19/2023 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 breakdown of skin (ICD-10 - L97.421) [facility] care center 11/19/2023 Type 2 diabetes mellitus with diabetic polyneuropathy (ICD-10 - E11.42) 02/14/2024 Other hammer toe(s) (acquired), right foot (ICD-10 - M20.41) Patient Educated with: DIABETIC FOOT CARE INSTRUCTIONS. pdf (DIABETIC FOOT CARE INSTRUCTIONS. pdf) 02/14/2024 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 breakdown of skin (ICD-10 - L97.421) 02/14/2024 Type 2 diabetes mellitus with diabetic polyneuropathy (ICD-10 - E11.42) 10/25/2023 Tinea unguium (ICD-10 - B35.1) 06/21/2023 Ingrown nail (ICD-10 - L60.0) 10/25/2023 Other hammer toe(s) (acquired), left foot (ICD-10 - M20.42) 02/14/2024 Tinea unguium (ICD-10 - B35.1) 02/14/2024 Other hammer toe(s) (acquired), left foot (ICD-10 - M20.42) 10/25/2023 Other hammer toe(s) (acquired), right foot (ICD-10 - M20.41) Patient Educated with: DIABETIC FOOT CARE INSTRUCTIONS. pdf (DIABETIC FOOT CARE INSTRUCTIONS. pdf) Plan Of Treatment Pending Test Test Name Order Date *Wound Culture 12/18/2019 *Wound Culture 11/24/2021 11937-NTCLIZL NAIL, 6 OR MORE 08/25/2021 71342-DSNNKLR NAIL, 6 OR MORE 12/18/2019 33457-VHPPTFQ NAIL, 6 OR MORE 11/24/2021 57624-FCUUPMH NAIL, 6 OR MORE 02/23/2022 51907-VRDOKFX NAIL, 6 OR MORE 06/08/2022 81461-ZNXGPSR NAIL, 6 OR MORE 09/11/2022 67046-EZPFHEY NAIL, 6 OR MORE 12/11/2022 47916-FXFKLSE NAIL, 6 OR MORE 09/18/2019 55184-XZHQCYW NAIL, 6 OR MORE 02/23/2020 83396-HNJCRSB NAIL, 6 OR MORE 05/13/2020 66362-PWCWKXG NAIL, 6 OR MORE 08/12/2020 28250-FZHVXKB NAIL, 6 OR MORE 11/18/2020 96631-RDGTBTQ NAIL, 6 OR MORE 02/17/2021 69471-ZYBGMLU NAIL, 6 OR MORE 03/15/2023 81810-PTTIIKD NAIL, 6 OR MORE 06/21/2023 14657-WEWTYCU NAIL, 6 OR MORE 10/25/2023 44611-UWBLVJK NAIL, 6 OR MORE 02/14/2024 24370-OTWFSJN NAIL, 6 OR MORE 03/06/2019 13596-EOKFYIK NAIL, 6 OR MORE 06/05/2019 11155-DFNXEAH NAIL, 6 OR MORE 02/21/2018 27232-YLAMKFY NAIL, 6 OR MORE 05/30/2018 91379-TIBASRH NAIL, 6 OR MORE 08/29/2018 77411-PRYOHPS NAIL, 6 OR MORE 12/05/2018 83015-IJTXQGT NAIL, 6 OR MORE 12/22/2015 56015-XWGPAFX NAIL, 6 OR MORE 03/23/2016 44710-BZQSITZ NAIL, 6 OR MORE 06/22/2016 13658-RQQDHAU NAIL, 6 OR MORE 10/05/2016 21060-JQFJGNH NAIL, 6 OR MORE 01/04/2017 30553-WHNFLSN NAIL, 6 OR MORE 05/10/2017 76215-KIVZVQZ NAIL, 6 OR MORE 08/09/2017 19645-AHVPYKG NAIL, 6 OR MORE 11/23/2017 66030-PAQYKNH NAIL, 6 OR MORE 04/17/2011 08629-XDPNBQP NAIL, 6 OR MORE 07/20/2011 01187-RNZOEUX NAIL, 6 OR MORE 08/17/2011 16080-MGASBGR NAIL, 6 OR MORE 09/19/2011 99697-RXKDOVB NAIL, 6 OR MORE 12/25/2011 77493-DDWGRHL NAIL, 6 OR MORE 03/13/2012 79218-AYLQJJY NAIL, 6 OR MORE 06/19/2012 92539-MGKSDYK NAIL, 6 OR MORE 09/16/2012 42153-YLISIFG NAIL, 6 OR MORE 12/04/2012 38602-UFFNYLE NAIL, 6 OR MORE 03/12/2013 41617-IWSGQOJ NAIL, 6 OR MORE 06/18/2013 21768-BDPDIFX NAIL, 6 OR MORE 09/18/2013 66819-ZEPFTQY NAIL, 6 OR MORE 12/18/2013 08780-KIMWQEL NAIL, 6 OR MORE 03/19/2014 18312-MTWLIPQ NAIL, 6 OR MORE 09/17/2014 49938-MYAQNGR NAIL, 6 OR MORE 12/17/2014 71379-XGUVEGS NAIL, 6 OR MORE 06/18/2014 73104-UJDLHQP NAIL, 6 OR MORE 03/24/2015 94718-ULLQWBI NAIL, 6 OR MORE 06/17/2015 90505-BQZPEKS NAIL, 6 OR MORE 09/16/2015 22870-Yjrjffih Plate 06/18/2014 45948-Qznrgths Plate 12/17/2014 70502-Jqqdaumy Plate 12/18/2013 74880-Dyzdsbiw Plate 09/18/2013 43516-Nqybimoc Plate 03/12/2013 47530-Lpixuveq Plate 01/04/2017 60428-Tehvhivj Plate 06/21/2023 01897- Debride <25 sq cm 02/14/2024 43677- Debride <25 sq cm 08/25/2021 46888- Debride <25 sq cm 08/12/2020 14090- Debride <25 sq cm 04/05/2020 01816- Debride <25 sq cm 05/13/2020 90702- Debride <25 sq cm 02/23/2020 62590- Debride <25 sq cm 06/08/2022 85265- Debride <25 sq cm 11/24/2021 91461- Debride <25 sq cm 12/08/2021 25683- Debride <25 sq cm 01/05/2022 98575- Debride <25 sq cm 02/23/2022 64947- Debride <25 sq cm 12/04/2012 24866- Debride <25 sq cm 12/25/2011 13772- Debride <25 sq cm 09/19/2011 23762- Debride <25 sq cm 08/17/2011 27710- Debride <25 sq cm 07/20/2011 88824- Debride <25 sq cm 12/18/2013 51422- Debride <25 sq cm 03/19/2014 63138-KDPKOFV SKIN/TISSUE 12/18/2019 51342-HQYMPLQ SKIN/TISSUE 01/05/2020 57399-PDQWTFC SKIN/TISSUE 01/19/2020 81786-BKYXXKF SKIN/TISSUE 02/05/2020 49408-QWGM SKIN LESIONS, OVER 4 09/18/19 58328-PWKU SKIN LESIONS, OVER 4 06/05/19 26121-MWGP SKIN LESIONS, OVER 4 03/06/20 02691-WMIH SKIN LESIONS, OVER 4 12/06/19 89942-TBJP SKIN LESIONS, OVER 4 08/30/19 34908-QLOZ SKIN LESIONS, OVER 4 05/30/19 77272-YNON SKIN LESIONS, OVER 4 01/05/20 71523-YQFV SKIN LESIONS, OVER 4 02/22/20 18 74314-YOIB SKIN LESIONS, OVER 4 11/24/19 18 30564-WUEH SKIN LESIONS, OVER 4 05/10/20 96041-CCCD SKIN LESIONS, OVER 4 08/10/19 18 96520-RKNC SKIN LESIONS, OVER 4 02/24/20 49105-FOKC SKIN LESIONS, OVER 4 11/25/19 40948-DGCB SKIN LESIONS, OVER 4 06/08/19 36634-RTUX SKIN LESIONS, OVER 4 09/12/19 21340-CARW SKIN LESIONS, OVER 4 03/15/20 94570-VZKJ SKIN LESIONS, OVER 4 12/12/19 03704-IHXF SKIN LESIONS, OVER 4 02/23/20 20 21453-ENTJ SKIN LESIONS, OVER 4 12/18/19 90382-RMVC SKIN LESIONS, OVER 4 05/13/20 83382-ESTW SKIN LESIONS, OVER 4 08/13/19 33051-ITMG SKIN LESIONS, OVER 4 11/19/19 66878-KPOW SKIN LESIONS, OVER 4 08/26/19 25127-IRCK SKIN LESIONS, OVER 4 02/18/20 42112-QCWI SKIN LESIONS, OVER 4 02/14/20 35982-NKVG SKIN LESIONS, OVER 4 06/21/19 74205-JGFY SKIN LESIONS, OVER 4 10/25/19 24 47727-MRBR SKIN LESIONS, 2 TO 4 06/22/19 17 75685-GZOB SKIN LESIONS, 2 TO 4 05/11/20 17 73703-HPID SKIN LESIONS, 2 TO 4 03/23/20 16 20211-SSFY SKIN LESIONS, 2 TO 4 12/22/19 16 26935-CZII SKIN LESIONS, 2 TO 4 12/18/19 15 53055-JWGH SKIN LESIONS, 2 TO 4 03/24/20 15 92628-WIHY SKIN LESIONS, 2 TO 4 09/16/19 16 89846-QTWL SKIN LESIONS, 2 TO 4 06/17/19 16 Next Appt Details Provider Name:Sussy Lowery , 06/02/2024 04:00:00 PM, [address] [place], [address], Insurance Providers Payer Name Payer Address Payer Phone Subscriber Number Group Number Insured Name Patient Relationship to Insured Coverage Start Date Coverage End Date Medicare National Govt [facility] [address] [place] [address] [id number] Tobin Bey Self - patient is the insured AARP Secondary to Medicare [address] [place] [address] [id number] Tobin Bey Self - patient is the insured Medical (General) History Medical History History ICD Code reflux mumps measles chicken pox hypertension diabetes mellitus Macular degeneration Surgical History Surgery Date(Month/Year) cataract removal left total hip replacement 02/23/2015 R shoulder replacement 03/27/2017
--- OUTSIDE RECORDS SUMMARY | 2024-05-23 08:19 | XMS_ITS | Encounter Summary ---
Author Name [facility] Organization [facility] Address [address] [place] [address] Care Team Providers Care Bobbin Washer Name Role Phone ELISSA TRUJILLO Primary Care Provider Unavailabl e Insurance Providers: All historical and current Section Date Range: From patient's date of to the date document was created. This section includes the names of all active insurance providers for the patient. Insurance Provider Type of Coverage Plan Name Start of Policy Coverage End of Policy Coverage Group Number Member ID Insurance Provider's Telephone Number Policy Daugherty's Name Patient's Relationship to Policy Daugherty [employer] MEDICARE SUPPLEMEN MARIEL Apr 27, 2012 [facility] [id number] EL[address] AMOS UL PATIENT AAR MED [facility] MEDICARE SUPPLEMEN MARIEL Apr 27, 2012 [facility] [id number] [phone] ELIZABETH AMOS UL PATIENT MEDICARE (WNR) MEDICARE (M) PART A 2011 PART A [id number] ELIZABETH AMOS UL PATIENT MEDICARE (WNR) MEDICARE (M) PART B 2011 PART B [id number] ELIZABETH AMOS UL PATIENT Selected Encounter This section includes the information on record at [place] for the Encounter. Date/Time Encounter Type Encounter Description Reason Pro vider Source Jul 20, 2023 03:44 PM Outpatient Encounter PRIMARY CARE/MEDICINE I[facility] Encounter Template Text not used by [facility] Plan of Treatment: Future Appointments (+ 6 months) and Future Tests (+/- 45 days) The Plan of Treatment section includes future care activities for the patient from all [place] [facility]. This section includes future appointments and future orders which are active, pending or scheduled. Future Appointments This section includes appointments that were scheduled to occur 6 months from the date of the Encounter, up to a maximum of 20 appointments. The data comes from all [place] treatment facilities. Appointment Date/Time Appointment Type Appointme nt Facility Name Aug 15, 2023 02:00 PM AMBULATORY - MEDICINE [facility] Dec 19, 2023 02:00 PM AMBULATORY - MEDICINE [facility] Lab Results: +/- 30 days of the encounter This section includes the Chemistry and Hematology Lab Results on record with [place] for the patient. Radiology Reports and Pathology Reports are provided separately, in subsequent sections. Lab Results This section contains the Chemistry/Hematology Results that were resulted 30 days before or 30 daysafter the date of the Encounter. Date/Time Source Result Type Result - Unit Interpretation Reference Range Comment Aug 07, 2023 01:17 PM [facility] LIPID PANEL FASTING Specimen Type: SERUM No comment entered. Ordering Provider: KEO ANAYA Report Released Date/Time: Jul 23, 2023 05:25 PM Reporting Lab: [address] [address] Performing Lab: [address] [address] CHOLESTEROL 140 mg/dL TRIGLYCERIDE 141 mg/dL 0-150 LDL calculated 65 mg/dL 0-129 CHOL/HDL 3.0 HDL CHOLESTEROL 47 mg/dL 40-60 Aug 07, 2023 01:17 PM [facility] BASIC METABOLIC PANEL (fasting) Specime n Type: SERUM No comment entered. Ordering Provider: KEO ANAYA Report Released Date/Time: Jul 23, 2023 05:25 PM Reporting Lab: [address] [address] Performing Lab: [address] [address] UREA NITROGEN 31 mg/dL H 7-25 GLUCOSE 124 mg/dL H 65-100 SODIUM 137 mmol/L 135-145 POTASSIUM 4.2 mmol/L 3.5-5.0 CHLORIDE 100 mmol/L 100-110 CO2 24 meq/L 20-30 CREATININE, Serum 1.33 mg/dL 0.50-1.40 eGFR(CKD-EPI 2020) 55 mL/min L >60 Aug 07, 2023 01:17 PM [facility] LIVER FUNCTION Specimen Type: SERUM No comment entered. Ordering Provider: KEO ANAYA Report Released Date/Time: Jul 23, 2023 05:25 PM Reporting Lab: [address] [address] Performing Lab: [address] [address] PROTEIN,TOTAL 7.0 g/dL 6.0-8.3 ALBUMIN 3.6 g/dL 3.5-5.0 ALKALINE PHOSPHATASE 90 U/L 40-150 AST 25 U/L 5-34 ALT 18 U/L BILIRUBIN, TOTAL 0.4 mg/dL 0.2-1.2 Aug 07, 2023 01:17 PM [facility] HEMOGLOBIN A1C PANEL Specimen Type: BLOOD Comment: Values obtained from A1C measurements can vary. For atypical A1C assays, a reported value of 7.0 could actually be between 6.72 and 7.28 if measured by a reference method. A reported value of 9.0 could actually be between 8.73 and 9.27. Ref: http://www.ngs p.org/CAPdata. asp Ordering Provider: KEO ANAYA Report Released Date/Time: Jul 23, 2023 05:25 PM Reporting Lab: [address] [address] Performing Lab: [address] [address] HEMOGLOBIN A1C 5.9 H 4.0-5.6 Aug 07, 2023 01:17 PM [facility] CBC AND DIFF (AUTO) Specimen Type: BLOOD No comment entered. Ordering Provider: KEO ANAYA Report Released Date/Time: Jul 23, 2023 05:25 PM Reporting Lab: [address] [address] Performing Lab: [address] [address] WBC 6.41 10*3/uL 4.50-11.00 RBC 4.43 10*6/uL 4.23-5.66 HGB 12.8 g/dL 12.8-17 HCT 38.9 L 39.2-50.4 MCV 87.8 fL 82-99 MCHC 32.9 g/dL 30.8-35.1 PLT 270 10*3/uL 140-360 RDW-CV 13.4 12.0-16.0 [place], Abs 0.77 10*3/uL 0.30-1.10 MCH 28.9 pg 26.2-32.6 Neut % 63.0 43.7-75.8 Lymph % 19.8 14.0-42.3 [place] % 12.0 5.1-13.7 Eos % 3.1 0.4-6.8 Baso % 1.6 0.1-2.0 Neut, Abs 4.04 10*3/uL 2.20-7.60 Lymph, Abs 1.27 10*3/uL 1.00-3.20 Eos, Abs 0.20 10*3/uL 0.03-0.44 Baso, Abs 0.10 10*3/uL 0.01-0.13 Immature Gran % 0.5 0.0-0.7 Immature Gran, Abs 0.03 10*3/uL 0.00-0.06 Social History: Smoking Status (Most current) and Tobacco Use (All prior to encounter date) This section includes the most current, and the historical, smoking and tobacco- related health factors from the [place] facility where the Encounter took place. Current Smoking Status This section includes the most current smoking, or tobacco-related health factor, from the [place] facility where the Encounter took place. Date/Time Current Smoking Status Comment Padmini willingham Jan 27, 2021 03:35 PM [facility]-TOBACCO NEVER USED [facility] [place] [facility] Encounter Notes: All associated encounter notes This section contains the clinical notes associated to the Encounter. Date/Time Encounter Note(s) Provider Source Jul 20, 2023 03:44 PM PRIMARY CARE SECUR E MESSAGING: LOCAL TITLE: PRIMARY CARE SECURE MESSAGING STANDARD TITLE: PRIMARY CARE SECURE MESSAGING DATE OF NOTE: JUL 20, 2023@15:44 ENTRY DATE: JUL 20, 2023@15:44:18 AUTHOR: VENITA CAREY EXP COSIGNER: URGENCY: STATUS: COMPLETED PRIMARY CARE SECURE MESSAGING Has ADDENDA ------Original Message -------- Sent: 07/20/2023 03:37 PM ET From: TOBIN AMOS To: Al ANAYA_PRIMARY CARE_SPO Subject: General:blood test Attachments: document.pdf (133.58 KB) Do you still want me to go for a blood test before I see you? Please add the blood test to my files, if you want Thank You Tobin Amos Mr /es/ VENITA QUINONES Signed: 07/20/2023 15:44 Receipt Acknowledged By: 07/25/2023 11:23 /es/ MITCHELL MARRFUO LPN LPN 07/23/2023 17:33 /med/ Jacqueline Johnson RN Registered Nurse (RN) for ANGELA LOYDKade 07/23/2023 ADDENDUM STATUS: COMPLETED NON [facility] Labs saved to right fax folder Upcoming Appt /med/ Jacqueline Johnson RN Registered Nurse (RN) Signed: 07/23/2023 17:34 VENITA CAREY [facility]
--- OUTSIDE RECORDS SUMMARY | 2024-05-23 08:19 | XMS_ITS | Continuity of Care Document ---
Author Name [facility] Organization [facility] Care Team Providers Care Pitch Filler Name Role Phone [facility] Unavailable Unavailable Problems Combined list of problems from Department of Defense and Veterans Affairs facilities. It does not include entries that were removed or entered in error. Problem Status Onset Date Problem Type Date of Resolution Comments Source OA - Osteoarthritis of hip Active 02/24/20 15 Condition Apr 08, 2015 Entered By: Art SANTAMARIA Comment: Total Left Hip replacement February 232016 Entered By: Art SANTAMARIA Comment: Right shoulder replacement 2016 [facility] At risk of pressure ulcer (SNOMED CT 902618608) Active Condition [facility] DM - Diabetes mellitus (SNOMED CT 54667034) Active Condition [facility] HTN - Hypertension (SNOMED CT 29992081) Active Condition [facility] Hyperlipidemia (SCT 55595431) Active Condition [place] [facility] Iron deficiency anemia Active Condition [facility] Osteoarthritis Active Condition [facility] Pain in right hip joint Active Condition [place] Polyp of colon Active Condition September 262013 Entered By: LIA ABRAHAM Comment: 2012 2 polypsSep 2017 Entered By: Art SANTAMARIA Comment: 06/13 1 polypApr 2020 Entered By: Art SANTAMARIA Comment: 10/2019 EGD and colonic polyp-see note 08/27/20-due 11/17 colon [place] Postsurgical Status of Cataract Extraction Active Condition Sep 10, 2012 Entered By: LIA ABRAHAM Comment: alondra [place] Pressure injury of buttock Active Condition Aug 15, 2023 Entered By: KEO ANAYA Comment: Managed by MYNOR Acevedo [place] Psoriasis Active Condition [facility] Diagnosis: ICD-10-CM E11.9 Type 2 diabetes mellitus without complications Active Diagnosis [place] Diagnosis: ICD-10-CM E11.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 Medications Combined list of outpatient medications from Department of Defense and Veterans Affairs facilities.Medications provided include 1) outpatient medications from the last 15 months, and 2) patient-reported medications. Medication Details Route Status Patient Instructions Prescription Expires Prescription Number Last Dispense Date Ordering Provider Order Date Order Qty Source ASPIRIN 81MG TAB,EC TAKE ONE TABLET BY MOUTH DAILY ORAL ACTIVE JOSH ABRAHAM 2013 [facility] CICLOPIROX OLAMINE 0.77% CREAM,TOP APPLY A TOPICALL Y TWICE DAILY TOPICA Maribeth ACTIVE JOSH ABRAHAM [address] [facility] IELD CYANOCOBALA MIN 1000MCG TAB TAKE ONE TABLET BY MOUTH DAILY ORAL ACTIVE JOSH ABRAHAM 2013 [facility] IELD DICLOFENAC NA 1% GEL,TOP APPLY 2 GRAMS TOPICALL Y FOUR TIMES DAILY NEEDED FOR OSTEOART HRITIS - USE DOSING CARD PROVIDED IN BOX TOPICA L ACTIVE 01/30/2025 [id number] 4 Frantz TRUJILLO [address] [facility] IELD DICLOFENAC NA 1% GEL,TOP APPLY 2 GRAMS TOPICALL Y FOUR TIMES DAILY NEEDED FOR OSTEOART HRITIS - USE DOSING CARD PROVIDED IN BOX [facility]24 [id number] 4 KATIE ACEVEDO [address] [facility] IELD FLUOCINONID E 0.05% CREAM,TOP APPLY A TOPICALL Y TWICE DAILY TOPICA L ACTIVE JOSH ABRAHAM 2012 [facility] IELD HYDROCHLORO THIAZIDE 25MG TAB TAKE ONE TABLET BY MOUTH DAILY TO PREVENT FLUID/CO NTROL BLOOD PRESSURE ORAL ACTIVE 01/30/2025 [id number] 4 Frantz TRUJILLO 2023 90 [place] [facility] HYDROCHLORO THIAZIDE 25MG TAB TAKE ONE TABLET BY MOUTH DAILY TO PREVENT FLUID/CO NTROL BLOOD PRESSURE ORAL DISCONT INUED 02/15/2024 [id number] 4 KATIE ACEVEDO S 2022 90 [place] LIDOCAINE 5% PATCH APPLY 1 PATCH TOPICALL Y ONCE DAILY NEEDED (LEAVE PATCH ON FOR 12 HOURS, THEN REMOVE PATCH) TOPICA L ACTIVE 01/30/2025 [id number] 4 Frantz TRUJILLO A 2023 30 [place] LIDOCAINE 5% PATCH APPLY 1 PATCH TOPICALL Y ONCE DAILY NEEDED (LEAVE PATCH ON FOR 12 HOURS, THEN REMOVE PATCH) TOPICA L DISCONT INUED 02/15/2024 [id number] 4 KATIE ACEVEDO S 2022 30 [place] LORATADINE 10MG TAB TAKE ONE TABLET BY MOUTH DAILY ORAL ACTIVE JOSH ABRAHAM 2013 [place] LOSARTAN POTASSIUM 100MG TAB TAKE ONE TABLET BY MOUTH ONCE DAILY FOR BLOOD PRESSURE /HEART ORAL ACTIVE 01/30/2025 [id number] 4 Frantz TRUJILLO A 2023 90 [place]AN POTASSIUM 100MG TAB TAKE ONE TABLET BY MOUTH ONCE DAILY FOR BLOOD PRESSURE /HEART ORAL DISCONT INUED 02/15/2024 [id number] 4 KATIE ACEVEDO 2022 90 [place] MAGNESIUM OXIDE TAB TAKE BY MOUTH ORAL ACTIVE ROWENA LAURENT 2018 [place] METFORMIN HCL 1000MG TAB TAKE ONE TABLET BY MOUTH TWICE DAILY FOR DIABETES ORAL ACTIVE 01/30/2025 [id number] 4 Frantz TRUJILLO 2023 180 [place] METFORMIN HCL 1000MG TAB TAKE ONE TABLET BY MOUTH TWICE DAILY FOR DIABETES ORAL DISCONT INUED 02/15/2024 [id number] 4 KATIE ACEVEDO 2022 180 [place] METOPROLOL TARTRATE 50MG TAB TAKE ONE TABLET BY MOUTH TWICE DAILY FOR BLOOD PRESSURE /HEART ORAL ACTIVE 09/26/2024 [id number] ALVARADO ANAYA 2023 180 [place] METOPROLOL TARTRATE 50MG TAB TAKE ONE TABLET BY MOUTH TWICE DAILY FOR BLOOD PRESSURE /HEART ORAL DISCONT INUED 01/16/2024 [id number] 4 KATIE ACEVEDO S 2022 180 IELD MULTIVITAMI NS W/MINERALS TAB TAKE ONE TABLET BY MOUTH DAILY ORAL ACTIVE JARADJOSH REBECA 2013 IELD OTHER CAP/TAB TAKE 1 APPLICAT ION topical ONCE DAILY NEEDED ACTIVE ROWENA LAURENT 2020 IELD ROSUVASTATI N CA 10MG TAB TAKE ONE-HALF TABLET BY MOUTH TWO TIMES A WEEK FOR CHOLESTE ROL ORAL ACTIVE 01/30/2025 [id number] 4 Frantz TRUJILLO 2023 13 IELD ROSUVASTATI N CA 10MG TAB TAKE ONE-HALF TABLET BY MOUTH TWO TIMES A WEEK FOR CHOLESTE ROL ORAL DISCONT INUED 02/15/2024 [id number] 4 KATIE ACEVEDO S 2022 13 IELD SEMAGLUTIDE 0.25MG/0.37 5ML INJ,SOLN,PE N,3ML INJECT 0.5MG SUBCUTAN EOUSLY ONCE A WEEK SUBCUT ANEOUS DISCONT INUED 01/27/2024 [id number] 3 KATIE ACEVEDO S 2022 1 IELD SEMAGLUTIDE 1MG/0.75ML INJ,SOLN,PE N,3ML INJECT 1MG SUBCUTAN EOUSLY ONCE A WEEK SUBCUT ANEOUS ACTIVE 09/26/2024 [id number] 4 ALVARADO ANAYA 2023 3 IELD SEMAGLUTIDE 1MG/0.75ML INJ,SOLN,PE N,3ML INJECT 1MG SUBCUTAN EOUSLY ONCE A WEEK SUBCUT ANEOUS DISCONT INUED 05/11/2024 [id number] 4 ALVARADO ANAYA 2023 1 IELD SEMAGLUTIDE 1MG/0.75ML INJ,SOLN,PE N,3ML INJECT 1MG SUBCUTAN EOUSLY ONCE A WEEK SUBCUT ANEOUS DISCONT INUED 02/17/2024 [id number] CURTIS,KATIE CHESTER S 2022 1 IELD SENNOSIDE 8.6MG (SENNA) TAB TAKE BY MOUTH DAILY ORAL ACTIVE JARADJOSH SAMPSON REBECA 2013 IELD SPIRONOLACT ONE 25MG TAB TAKE TWO TABLETS BY MOUTH ONCE DAILY ORAL SUSPEND ED 01/30/2025 [id number] 4 Frantz TRUJILLO A 2023 180 IELD SPIRONOLACT ONE 25MG TAB TAKE TWO TABLETS BY MOUTH DAILY [REPLACE S CRISTIAN LOWE] ORAL DISCONT INUED 02/15/2024 [id number] 4 CURTIS,KATIE CHESTER S 2022 180 IELD TACROLIMUS 0.1% OINT,TOP APPLY THIN LAYER TOPICALL Y TWICE DAILY FOR ATOPIC DERMATIT IS TOPICA L PROVIDE R HOLD 03/27/2024 [id number] KATIE ACEVEDO CHESTER S 2022 180 IELD VITAMIN D3 (CHOLECALCI FEROL) TAB TAKE BY MOUTH ORAL ACTIVE ROWENA LAURENT [place] Immunizations Combined list of available immunizations from the Department of Defense and Veterans Affairs facilities. 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 Expiratio n Date: 08/31/23 [facility] INFLUENZA, HIGH-DOSE, QUADRIVALENT 2022 WEI OCHOA LEFT DELTO ID [id number] 197 complet ed [place] COVID-19 (MODERNA), MRNA, LNP-S, BIVALENT BOOSTER, PF, 50 MCG/0.5 ML OR 25MCG/0.25 ML DOSE 2021 SHEREEN IVERSON LEFT DELTO ID [id number] 229 complet ed [place] COVID-19 (MODERNA), MRNA, LNP-S, PF, 100 MCG OR 50 MCG DOSE 3 2020 207 complet ed MOD; [id number]; 2 [place] INFLUENZA VACCINE, QUADRIVALENT, ADJUVANTED 2020 205 complet ed [place] COVID-19 (MODERNA), MRNA, LNP-S, PF, 100 MCG/0.5 ML DOSE 2 2020 207 complet ed MOD; [id number]; 1 [facility] COVID-19 (MODERNA), MRNA, LNP-S, PF, 100 MCG/0.5 ML DOSE 1 2020 207 complet ed MOD; [id number]; 1 [facility] INFLUENZA, UNSPECIFIED FORMULATION 2019 88 complet ed [facility] INFLUENZA, SEASONAL, INJECTABLE 2018 141 complet ed [facility] INFLUENZA, SEASONAL, INJECTABLE 2017 141 complet ed documenta tion influenza HD 03-21-18 Left deltoid [id number] exp 09-26-18 [facility] ZOSTER RECOMBINANT 2 2017 187 complet ed [place] TDAP 2017 115 complet ed [facility] TD(ADULT) UNSPECIFIED FORMULATION 2017 139 complet ed [facility] TDAP 2017 115 complet ed [facility] ZOSTER RECOMBINANT 1 2017 187 complet ed provided [facility] FLU,3 YRS (HISTORICAL) 2015 88 complet ed [facility] PNEUMOCOCCAL CONJUGATE PCV 13 2015 133 complet ed [place] ZOSTER (HISTORICAL) 2013 121 complet ed [place] FLU,3 YRS (HISTORICAL) 2012 88 complet ed [facility] FLU,3 YRS (HISTORICAL) 2011 88 complet ed [facility] PNEUMOCOCCAL, UNSPECIFIED FORMULATION 2011 109 complet ed [facility] TD(ADULT) UNSPECIFIED FORMULATION 2007 139 complet ed [facility] Results Combined list of recent chemistry, hematology and other laboratory results from Department of Defense and Veterans Affairs, ranging from 15 months to all on record, depending upon the facility. Order Name Results Value Reference Range Date Interpretation Specimen Comments Source HEMOGLOB IN A1C PANEL HEMOGLOBIN A1C/HEMOGL OBIN.TOTAL IN BLOOD BY HPLC 5.9 4.0 - 5.6 02/28 H Specimen Type: BLOOD Comment: Values obtained from A1C measurement s can vary. For atypical A1C assays, a reported value of 7.0 could actually be between 6.72 and 7.28 if measured by a reference method. A reported value of 9.0 could actually be between 8.73 and 9.27. Ref: [email or web address]/[place] Pdata.asp Ordering Provider: ISABEL ANAYA Report Released Date/Time: Aug 15, 2023 02:27 PM Reporting Lab: [address] [address] Performing Lab: [facility] [address] [facility] [address] [place] MICROALB UMIN CREATINI NE RATIO PANEL MICROALBUM IN/CREATIN INE [MASS RATIO] IN URINE 10.2 mg/g 0 - 29.9 02/28 Specimen Type: URINE No comment entered. Ordering Provider: ISABEL ANAYA Report Released Date/Time: Aug 15, 2023 02:27 PM Reporting Lab: [facility] [address] [address] Performing Lab: [facility] [address] [facility] [address] [place] MICROALB UMIN CREATINI NE RATIO PANEL MICROALBUM IN [MASS/VOLU ME] IN URINE 1.7 mg/dL 02/28 Specimen Type: URINE No comment entered. Ordering Provider: ISABEL ANAYA Report Released Date/Time: Aug 15, 2023 02:27 PM Reporting Lab: [facility] [address] [facility] [address] Performing Lab: [facility] [address] [facility] [address] [place] MICROALB UMIN CREATINI NE RATIO PANEL CREATININE [MASS/VOLU ME] IN URINE 166.35 mg/dL 02/28 Specimen Type: URINE No comment entered. Ordering Provider: ISABEL ANAYA Report Released Date/Time: Aug 15, 2023 02:27 PM Reporting Lab: [facility] [address] [facility] [address] Performing Lab: [facility] HOSPITALTRN [address] [address] [place] LIPID PANEL FASTING CHOLESTERO L [MASS/VOLU ME] IN SERUM OR PLASMA 140 mg/dL 08/06 Specimen Type: SERUM No comment entered. Ordering Provider: ISABEL ANAYA Report Released Date/Time: Jul 23, 2023 05:25 PM Reporting Lab: [facility]ITALTR[facility] [address] [facility] [address] Performing Lab: [facility] TRN [address] [address] [place] LIPID PANEL FASTING TRIGLYCERI DE [MASS/VOLU ME] IN SERUM OR PLASMA 141 mg/dL 0 - 150 08/06 Specimen Type: SERUM No comment entered. Ordering Provider: ISABEL ANAYA Report Released Date/Time: Jul 23, 2023 05:25 PM Reporting Lab: [facility] [address] [address] Performing Lab: [facility] [address] [address] [place] LIPID PANEL FASTING CHOLESTERO L IN LDL [MASS/VOLU ME] IN SERUM OR PLASMA BY DEREK Horton 65 mg/dL 0 - 129 08/06 Specimen Type: SERUM No comment entered. Ordering Provider: ISABEL ANAYA Report Released Date/Time: Jul 23, 2023 05:25 PM Reporting Lab: [facility]EN [address] [address] Performing Lab: [facility] [address] [address] [place] LIPID PANEL FASTING CHOLESTERO L.TOTAL/CH OLESTEROL IN HDL [MASS RATIO] IN SERUM OR PLASMA 3.0 08/06 Specimen Type: SERUM No comment entered. Ordering Provider: ISABEL ANAYA Report Released Date/Time: Jul 23, 2023 05:25 PM Reporting Lab: [facility] [address] Performing Lab: [facility] [address] [address] [place] LIPID PANEL FASTING CHOLESTERO L IN HDL [MASS/VOLU ME] IN SERUM OR PLASMA 47 mg/dL 40 - 60 08/06 Specimen Type: SERUM No comment entered. Ordering Provider: ISABEL ANAYA Report Released Date/Time: Jul 23, 2023 05:25 PM Reporting Lab: [facility] [address] [address] Performing Lab: [facility] [address] [address] [place] BASIC METABOLI C PANEL (fasting ) UREA NITROGEN [MASS/VOLU ME] IN SERUM OR PLASMA 31 mg/dL 7 - 25 08/06 H Specimen Type: SERUM No comment entered. Ordering Provider: ISABEL ANAYA Report Released Date/Time: Jul 23, 2023 05:25 PM Reporting Lab: [facility] [address] [address] Performing Lab: [facility] [address] [facility] [address] [place] BASIC METABOLI C PANEL (fasting ) GLUCOSE [MASS/VOLU ME] IN SERUM OR PLASMA 124 mg/dL 65 - 100 08/06 H Specimen Type: SERUM No comment entered. Ordering Provider: ISABEL ANAYA HEIDI J Report Released Date/Time: Jul 23, 2023 05:25 PM Reporting Lab: [address] [address] Performing Lab: [address] [address] [place] BASIC METABOLI C PANEL (fasting ) SODIUM [MOLES/VOL UME] IN SERUM OR PLASMA 137 mmol/L 135 - 145 08/06 Specimen Type: SERUM No comment entered. Ordering Provider: ISABEL ANAYA HEIDI George Report Released Date/Time: Jul 23, 2023 05:25 PM Reporting Lab: [address] [address] Performing Lab: [address] [address] [place] BASIC METABOLI C PANEL (fasting ) POTASSIUM [MOLES/VOL UME] IN SERUM OR PLASMA 4.2 mmol/L 3.5 - 5.0 08/06 Specimen Type: SERUM No comment entered. Ordering Provider: ISABEL ANAYA HEIDI George Report Released Date/Time: Jul 23, 2023 05:25 PM Reporting Lab: [address] [address] Performing Lab: [address] [address] [place] BASIC METABOLI C PANEL (fasting ) CHLORIDE [MOLES/VOL UME] IN SERUM OR PLASMA 100 mmol/L 100 - 110 08/06 Specimen Type: SERUM No comment entered. Ordering Provider: ISABEL ANAYA HEIDI J Report Released Date/Time: Jul 23, 2023 05:25 PM Reporting Lab: [address] [address] Performing Lab: [facility] [address] [facility] [facility] [address] [place] BASIC METABOLI C PANEL (fasting ) CARBON DIOXIDE, TOTAL [MOLES/VOL UME] IN SERUM OR PLASMA 24 meq/L 20 - 30 08/06 Specimen Type: SERUM No comment entered. Ordering Provider: ISABEL ANAYA Report Released Date/Time: Jul 23, 2023 05:25 PM Reporting Lab: [address] [address] Performing Lab: [address] [address] [place] BASIC METABOLI C PANEL (fasting ) CREATININE [MASS/VOLU ME] IN SERUM OR PLASMA 1.33 mg/dL 0.50 - 1.40 08/06 Specimen Type: SERUM No comment entered. Ordering Provider: ISABEL ANAYA Report Released Date/Time: Jul 23, 2023 05:25 PM Reporting Lab: [address] [address] Performing Lab: [address] [address] [place] BASIC METABOLI C PANEL (fasting ) GLOMERULAR FILTRATION RATE/1.73 SQ M.PREDICTE D [VOLUME RATE/AREA] IN SERUM, PLASMA OR BLOOD BY CREATININE -BASED FORMULA (CKD-EPI 2020) 55 mL/min 60 08/06 L Specimen Type: SERUM No comment entered. Ordering Provider: ISABEL ANAYA Report Released Date/Time: Jul 23, 2023 05:25 PM Reporting Lab: [address] [address] Performing Lab: [address] [address] [place] LIVER FUNCTION PROTEIN [MASS/VOLU ME] IN SERUM OR PLASMA 7.0 g/dL 6.0 - 8.3 08/06 Specimen Type: SERUM No comment entered. Ordering Provider: ISABEL ANAYA Report Released Date/Time: Jul 23, 2023 05:25 PM Reporting Lab: [facility]ITALTRN [address] [address] Performing Lab: [facility] [address] [address] [place] LIVER FUNCTION ALBUMIN [MASS/VOLU ME] IN SERUM OR PLASMA 3.6 g/dL 3.5 - 5.0 08/06 Specimen Type: SERUM No comment entered. Ordering Provider: ISABEL ANAYA Report Released Date/Time: Jul 23, 2023 05:25 PM Reporting Lab: [facility]PITALTRN [address] [address] Performing Lab: [facility] [address] [address] [place] LIVER FUNCTION ALKALINE PHOSPHATAS E [ENZYMATIC ACTIVITY/V OLUME] IN SERUM OR PLASMA 90 U/L 40 - 150 08/06 Specimen Type: SERUM No comment entered. Ordering Provider: ISABEL ANAYA Report Released Date/Time: Jul 23, 2023 05:25 PM Reporting Lab: [facility] [address] [address] Performing Lab: [facility] TRN [address] [address] [facility] LIVER FUNCTION ASPARTATE AMINOTRANS FERASE [ENZYMATIC ACTIVITY/V OLUME] IN SERUM OR PLASMA 25 U/L 5 - 34 08/06 Specimen Type: SERUM No comment entered. Ordering Provider: ISABEL ANAYA Report Released Date/Time: Jul 23, 2023 05:25 PM Reporting Lab: [facility] [address] [address] Performing Lab: [facility] [address] [address] [place] LIVER FUNCTION ALANINE AMINOTRANS FERASE [ENZYMATIC ACTIVITY/V OLUME] IN SERUM OR PLASMA 18 U/L 08/06 Specimen Type: SERUM No comment entered. Ordering Provider: ISABEL ANAYA Report Released Date/Time: Jul 23, 2023 05:25 PM Reporting Lab: [address] [address] Performing Lab: [address] [address] [place] LIVER FUNCTION BILIRUBIN. TOTAL [MASS/VOLU ME] IN SERUM OR PLASMA 0.4 mg/dL 0.2 - 1.2 08/06 Specimen Type: SERUM No comment entered. Ordering Provider: ISABEL ANAYA Report Released Date/Time: Jul 23, 2023 05:25 PM Reporting Lab: [address] [address] Performing Lab: [address] [address] [place] HEMOGLOB IN A1C PANEL HEMOGLOBIN A1C/HEMOGL OBIN.TOTAL IN BLOOD BY HPLC 5.9 4.0 - 5.6 08/06 H Specimen Type: BLOOD Comment: Values obtained from A1C measurement s can vary. For atypical A1C assays, a reported value of 7.0 could actually be between 6.72 and 7.28 if measured by a reference method. A reported value of 9.0 could actually be between 8.73 and 9.27. Ref: http://www. [email or web address].org/[place] Pdata.asp Ordering Provider: ISABEL ANAYA Report Released Date/Time: Jul 23, 2023 05:25 PM Reporting Lab: [address] [address] Performing Lab: [address] [address] [place] CBC AND DIFF (AUTO) LEUKOCYTES [#/VOLUME] IN BLOOD BY AUTOMATED COUNT 6.41 10*3/uL 4.50 - 11.00 08/06 Specimen Type: BLOOD No comment entered. Ordering Provider: ISABEL ANAYA Report Released Date/Time: Jul 23, 2023 05:25 PM Reporting Lab: [address] [address] Performing Lab: [facility] [address] [facility] [address] [place] CBC AND DIFF (AUTO) ERYTHROCYT ES [#/VOLUME] IN BLOOD BY AUTOMATED COUNT 4.43 10*6/uL 4.23 - 5.66 08/06 Specimen Type: BLOOD No comment entered. Ordering Provider: ISABEL ANAYA Report Released Date/Time: Jul 23, 2023 05:25 PM Reporting Lab: [facility] [place] [address] [address] Performing Lab: [facility]ITALCHUSE[address] [address] [place] CBC AND DIFF (AUTO) HEMOGLOBIN [MASS/VOLU ME] IN BLOOD 12.8 g/dL 12.8 - 17 08/06 Specimen Type: BLOOD No comment entered. Ordering Provider: ISABEL ANAYA Report Released Date/Time: Jul 23, 2023 05:25 PM Reporting Lab: [facility]ITALTR[facility] [place] [address] [address] Performing Lab: [facility]ITALCHUSETS [address] [address] [place] CBC AND DIFF (AUTO) HEMATOCRIT [VOLUME FRACTION] OF BLOOD BY AUTOMATED COUNT 38.9 39.2 - 50.4 08/06 L Specimen Type: BLOOD No comment entered. Ordering Provider: ISABEL ANAYA Report Released Date/Time: Jul 23, 2023 05:25 PM Reporting Lab: [facility]ITALTRN [place] [address] [address] Performing Lab: [facility]N [facility]ITALCHUSETS [address] [address] [place] CBC AND DIFF (AUTO) MCV [ENTITIC VOLUME] BY AUTOMATED COUNT 87.8 fL 82 - 99 08/06 Specimen Type: BLOOD No comment entered. Ordering Provider: ISABEL ANAYA Report Released Date/Time: Jul 23, 2023 05:25 PM Reporting Lab: [facility] [address] Performing Lab: [facility] [place] [facility] [address] [facility] [address] [place] CBC AND DIFF (AUTO) MCHC [MASS/VOLU ME] BY AUTOMATED COUNT 32.9 g/dL 30.8 - 35.1 08/06 Specimen Type: BLOOD No comment entered. Ordering Provider: ISABEL ANAYA Report Released Date/Time: Jul 23, 2023 05:25 PM Reporting Lab: [facility] [address] [address] Performing Lab: [facility] [address] [address] [place] CBC AND DIFF (AUTO) PLATELETS [#/VOLUME] IN BLOOD BY AUTOMATED COUNT 270 10*3/uL 140 - 360 08/06 Specimen Type: BLOOD No comment entered. Ordering Provider: ISABEL ANAYA Report Released Date/Time: Jul 23, 2023 05:25 PM Reporting Lab: [facility] [address] [address] Performing Lab: [facility] [address] [address] [place] CBC AND DIFF (AUTO) ERYTHROCYT E DISTRIBUTI ON WIDTH [RATIO] BY AUTOMATED COUNT 13.4 12.0 - 16.0 08/06 Specimen Type: BLOOD No comment entered. Ordering Provider: ISABEL ANAYA Report Released Date/Time: Jul 23, 2023 05:25 PM Reporting Lab: [facility] [address] [address] Performing Lab: [facility] [address] [address] [place] CBC AND DIFF (AUTO) MONOCYTES [#/VOLUME] IN BLOOD BY AUTOMATED COUNT 0.77 10*3/uL 0.30 - 1.10 08/06 Specimen Type: BLOOD No comment entered. Ordering Provider: ISABEL ANAYA Report Released Date/Time: Jul 23, 2023 05:25 PM Reporting Lab: [facility] [address] [address] Performing Lab: [place] [facility] [place] [facility] [address] [facility] [address] [place] CBC AND DIFF (AUTO) MCH [ENTITIC MASS] BY AUTOMATED COUNT 28.9 pg 26.2 - 32.6 08/06 Specimen Type: BLOOD No comment entered. Ordering Provider: ISABEL ANAYA Report Released Date/Time: Jul 23, 2023 05:25 PM Reporting Lab: [facility] [place] [address] [address] Performing Lab: [facility] [place] [address] [address] [place] CBC AND DIFF (AUTO) NEUTROPHIL S/100 LEUKOCYTES IN BLOOD BY AUTOMATED COUNT 63.0 43.7 - 75.8 08/06 Specimen Type: BLOOD No comment entered. Ordering Provider: ISABEL ANAYA Report Released Date/Time: Jul 23, 2023 05:25 PM Reporting Lab: [facility] [place] [address] [address] Performing Lab: [facility] [place] [address] [address] [place] CBC AND DIFF (AUTO) LYMPHOCYTE S/100 LEUKOCYTES IN BLOOD BY AUTOMATED COUNT 19.8 14.0 - 42.3 08/06 Specimen Type: BLOOD No comment entered. Ordering Provider: ISABEL ANAYA Report Released Date/Time: Jul 23, 2023 05:25 PM Reporting Lab: [facility] [place] [address] [address] Performing Lab: [facility] [place] [address] [address] [place] CBC AND DIFF (AUTO) MONOCYTES/ 100 LEUKOCYTES IN BLOOD BY AUTOMATED COUNT 12.0 5.1 - 13.7 08/06 Specimen Type: BLOOD No comment entered. Ordering Provider: ISABEL ANAYA Report Released Date/Time: Jul 23, 2023 05:25 PM Reporting Lab: [facility] [place] [address] [address] Performing Lab: [facility] [address] [facility] [address] [place] CBC AND DIFF (AUTO) EOSINOPHIL S/100 LEUKOCYTES IN BLOOD BY AUTOMATED COUNT 3.1 0.4 - 6.8 08/06 Specimen Type: BLOOD No comment entered. Ordering Provider: ISABEL ANAYA Report Released Date/Time: Jul 23, 2023 05:25 PM Reporting Lab: [facility]ITALTR[facility] [address] [address] Performing Lab: [facility]ITALTRN [facility]USE[address] [address] [place] CBC AND DIFF (AUTO) BASOPHILS/ 100 LEUKOCYTES IN BLOOD BY AUTOMATED COUNT 1.6 0.1 - 2.0 08/06 Specimen Type: BLOOD No comment entered. Ordering Provider: ISABEL ANAYA Report Released Date/Time: Jul 23, 2023 05:25 PM Reporting Lab: [facility]N [address] [address] Performing Lab: [facility]OSPITALTRN [facility]ITALUSE[address] [address] [place] CBC AND DIFF (AUTO) NEUTROPHIL S [#/VOLUME] IN BLOOD BY AUTOMATED COUNT 4.04 10*3/uL 2.20 - 7.60 08/06 Specimen Type: BLOOD No comment entered. Ordering Provider: ISABEL ANAYA Report Released Date/Time: Jul 23, 2023 05:25 PM Reporting Lab: [facility]ITAL[facility] [address] [address] Performing Lab: [facility] [address] [place] CBC AND DIFF (AUTO) LYMPHOCYTE S [#/VOLUME] IN BLOOD BY AUTOMATED COUNT 1.27 10*3/uL 1.00 - 3.20 08/06 Specimen Type: BLOOD No comment entered. Ordering Provider: ISABEL ANAYA Report Released Date/Time: Jul 23, 2023 05:25 PM Reporting Lab: [facility]ITALTRN [facility] [address] Performing Lab: [facility] [address] [address] [place] CBC AND DIFF (AUTO) EOSINOPHIL S [#/VOLUME] IN BLOOD BY AUTOMATED COUNT 0.20 10*3/uL 0.03 - 0.44 08/06 Specimen Type: BLOOD No comment entered. Ordering Provider: ISABEL ANAYA Report Released Date/Time: Jul 23, 2023 05:25 PM Reporting Lab: [facility] [address] [address] Performing Lab: [facility] [address] [address] [place] CBC AND DIFF (AUTO) BASOPHILS [#/VOLUME] IN BLOOD BY AUTOMATED COUNT 0.10 10*3/uL 0.01 - 0.13 08/06 Specimen Type: BLOOD No comment entered. Ordering Provider: ISABEL AANYA Report Released Date/Time: Jul 23, 2023 05:25 PM Reporting Lab: [facility] [address] [address] Performing Lab: [facility]EN [address] [address] [place] CBC AND DIFF (AUTO) IMMATURE GRANULOCYT ES/100 LEUKOCYTES IN BLOOD BY AUTOMATED COUNT 0.5 0.0 - 0.7 08/06 Specimen Type: BLOOD No comment entered. Ordering Provider: ISABEL ANAYA Report Released Date/Time: Jul 23, 2023 05:25 PM Reporting Lab: [facility] [address] [address] Performing Lab: [facility]EN [address] [address] [place] CBC AND DIFF (AUTO) IMMATURE GRANULOCYT ES [#/VOLUME] IN BLOOD 0.03 10*3/uL 0.00 - 0.06 08/06 Specimen Type: BLOOD No comment entered. Ordering Provider: ISABEL ANAYA Report Released Date/Time: Jul 23, 2023 05:25 PM Reporting Lab: [facility] [place] [facility] [address] [facility] [address] Performing Lab: [facility] [place] [facility] [address] [facility] [address] [place] MICROSCO PIC AUTOMATE D, URINE LEUKOCYTES [#/AREA] IN URINE SEDIMENT BY MICROSCOPY HIGH POWER FIELD 0-5/[HPF ] 0 - 5 02/14 Specimen Type: URINE Comment: If Glucose = >500 and Ketones are positive, please alert the Physician. Ordering Provider: ANTONIO ACEVEDO Report Released Date/Time: Feb 14, 2023 02:48 PM Reporting Lab: [facility]ITAL[facility] [address] [facility] [facility] [address] Performing Lab: [facility]ITAL[facility]ETS [facility] [address] [facility] [address] [place] MICROSCO PIC AUTOMATE D, URINE MUCUS [#/AREA] IN URINE SEDIMENT BY MICROSCOPY LOW POWER FIELD FEW/[LPF ] 02/14 Specimen Type: URINE Comment: If Glucose = >500 and Ketones are positive, please alert the Physician. Ordering Provider: ANTONIO ACEVEDO Report Released Date/Time: Feb 14, 2023 02:48 PM Reporting Lab: [facility] [address] [facility] [address] Performing Lab: [facility]ITALCH[facility]ETS [facility] [address] [facility] [address] [place] MI[employer]OS[employer] PIC AUTOMATE D, URINE HYALINE CASTS [#/AREA] IN URINE SEDIMENT BY MICROSCOPY LOW POWER FIELD TNTC/[LP F] 0 - 2 02/14 Specimen Type: URINE Comment: If Glucose = >500 and Ketones are positive, please alert the Physician. Ordering Provider: ANTONIO ACEVEDO Report Released Date/Time: Feb 14, 2023 02:48 PM Reporting Lab: [facility]ITAL[facility]ETS [facility] [address] [facility] [address] Performing Lab: [facility] [address] [facility] [address] [place] MICROSCO PIC AUTOMATE D, URINE ERYTHROCYT ES [#/AREA] IN URINE SEDIMENT BY MICROSCOPY HIGH POWER FIELD 3-5/[HPF ] 0 - 3 02/14 Specimen Type: URINE Comment: If Glucose = >500 and Ketones are positive, please alert the Physician. Ordering Provider: ANTONIO ACEVEDO Report Released Date/Time: Feb 14, 2023 02:48 PM Reporting Lab: [facility] [place] [facility] [address] [facility] [address] Performing Lab: [facility] [place] [facility] [address] [facility] [address] [place] MICROS[employer] PIC AUTOMATE D, URINE EPITHELIAL CELLS.SQUA MOUS [#/AREA] IN URINE SEDIMENT BY MICROSCOPY HIGH POWER FIELD FEW/[HPF ] 02/14 Specimen Type: URINE Comment: If Glucose = >500 and Ketones are positive, please alert the Physician. Ordering Provider: ANTONIO ACEVEDO Report Released Date/Time: Feb 14, 2023 02:48 PM Reporting Lab: [facility] [address] [address] Performing Lab: [facility] [place] [facility] [address] [facility] [address] [place] URINALYS IS CLEAN CATCH COLOR OF URINE Dark-Yel low 02/14 Specimen Type: URINE Comment: If Glucose = >500 and Ketones are positive, please alert the Physician. Ordering Provider: ANTONIO ACEVEDO Report Released Date/Time: Feb 14, 2023 02:48 PM Reporting Lab: [facility] [place] [address] [address] Performing Lab: [facility] [place] [facility] [address] [facility] [address] [place] URINALYS IS CLEAN CATCH APPEARANCE OF URINE Clear 02/14 Specimen Type: URINE Comment: If Glucose = >500 and Ketones are positive, please alert the Physician. Ordering Provider: ANTONIO ACEVEDO Report Released Date/Time: Feb 14, 2023 02:48 PM Reporting Lab: [facility] [place] [address] [address] Performing Lab: [facility] [place] [address] [address] [place] URINALYS IS CLEAN CATCH GLUCOSE [MASS/VOLU ME] IN URINE NEGATIVE mg/dL 02/14 Specimen Type: URINE Comment: If Glucose = >500 and Ketones are positive, please alert the Physician. Ordering Provider: ANTONIO ACEVEDO Report Released Date/Time: Feb 14, 2023 02:48 PM Reporting Lab: [facility] [place] [address] [address] Performing Lab: [facility] [place] [address] [address] [place] URINALYS IS CLEAN CATCH KETONES [MASS/VOLU ME] IN URINE BY TEST STRIP TRACEmg/ dL 02/14 Specimen Type: URINE Comment: If Glucose = >500 and Ketones are positive, please alert the Physician. Ordering Provider: ANTONIO ACEVEDO Report Released Date/Time: Feb 14, 2023 02:48 PM Reporting Lab: [facility] [place] [address] [address] Performing Lab: [facility] [place] [address] [address] [place] URINALYS IS CLEAN CATCH ERYTHROCYT ES [PRESENCE] IN URINE SEDIMENT BY LIGHT MICROSCOPY NEGATIVE mg/dL 02/14 Specimen Type: URINE Comment: If Glucose = >500 and Ketones are positive, please alert the Physician. Ordering Provider: ANTONIO ACEVEDO Report Released Date/Time: Feb 14, 2023 02:48 PM Reporting Lab: [facility] [place] [address] [address] Performing Lab: [facility] [place] [address] [address] [place] URINALYS IS CLEAN CATCH PROTEIN [MASS/VOLU ME] IN URINE BY TEST STRIP 20 mg/dL 02/14 Specimen Type: URINE Comment: If Glucose = >500 and Ketones are positive, please alert the Physician. Ordering Provider: ANTONIO ACEVEDO Report Released Date/Time: Feb 14, 2023 02:48 PM Reporting Lab: [facility] [place] [address] [address] Performing Lab: [facility]ANRMO[facility]OSPITALTRN [facility]ITALCHUSETS [address] [address] [place] URINALYS IS CLEAN CATCH NITRITE [PRESENCE] IN URINE NEGATIVE mg/dL 02/14 Specimen Type: URINE Comment: If Glucose = >500 and Ketones are positive, please alert the Physician. Ordering Provider: ANTONIO ACEVEDO Report Released Date/Time: Feb 14, 2023 02:48 PM Reporting Lab: [facility]PITALTRN [place] [address] [address] Performing Lab: [facility]ITALUSE[address] [address] [place] URINALYS IS CLEAN CATCH BILIRUBIN. TOTAL [PRESENCE] IN URINE NEGATIVE mg/dL 02/14 Specimen Type: URINE Comment: If Glucose = >500 and Ketones are positive, please alert the Physician. Ordering Provider: ANTONIO ACEVEDO Report Released Date/Time: Feb 14, 2023 02:48 PM Reporting Lab: [facility]ITALTRN [place] [address] [address] Performing Lab: [facility] [address] [place] URINALYS IS CLEAN CATCH SPECIFIC GRAVITY OF URINE BY REFRACTOME TRY 1.043 1.016 - 1.022 02/14 H Specimen Type: URINE Comment: If Glucose = >500 and Ketones are positive, please alert the Physician. Ordering Provider: ANTONIO ACEVEDO Report Released Date/Time: Feb 14, 2023 02:48 PM Reporting Lab: [facility]ITALTRN [place] [address] [address] Performing Lab: [facility]ITAL[facility] [address] [place] URINALYS IS CLEAN CATCH PH OF URINE BY TEST STRIP 6.0 5.0 - 9.0 02/14 Specimen Type: URINE Comment: If Glucose = >500 and Ketones are positive, please alert the Physician. Ordering Provider: ANTONIO ACEVEDO Report Released Date/Time: Feb 14, 2023 02:48 PM Reporting Lab: [facility] [place] [facility] [address] [facility] [address] Performing Lab: [facility] WSTRN [facility]ITAL[facility]ETS [facility] [address] [facility] [address] [place] URINALYS IS CLEAN CATCH UROBILINOG EN [MASS/VOLU ME] IN URINE BY TEST STRIP <2.0mg/d L <2.0 - 2.0 02/14 Specimen Type: URINE Comment: If Glucose = >500 and Ketones are positive, please alert the Physician. Ordering Provider: ANTONIO ACEVEDO Report Released Date/Time: Feb 14, 2023 02:48 PM Reporting Lab: [facility] WSTRN [address] [address] Performing Lab: [facility]RL WSTRN [facility] [address] [place] URINALYS IS CLEAN CATCH LEUKOCYTE ESTERASE [PRESENCE] IN URINE BY TEST STRIP NEGATIVE 02/14 Specimen Type: URINE Comment: If Glucose = >500 and Ketones are positive, please alert the Physician. Ordering Provider: ANTONIO ACEVEDO Report Released Date/Time: Feb 14, 2023 02:48 PM Reporting Lab: [facility]ITAL[facility] [address] [address] Performing Lab: [facility]ITAL[facility] [address] [address] [place] MICROALB UMIN CREATINI NE RATIO PANEL MICROALBUM IN/CREATIN INE [MASS RATIO] IN URINE 4.5 mg/g 0 - 29.9 02/09 Specimen Type: URINE No comment entered. Ordering Provider: ANTONIO ACEVEDO Report Released Date/Time: Feb 02, 2023 04:39 PM Reporting Lab: [facility]ITAL[facility] [address] [address] Performing Lab: [facility] [address] [address] [place] MICROALB UMIN CREATINI NE RATIO PANEL MICROALBUM IN [MASS/VOLU ME] IN URINE 0.7 mg/dL 02/09 Specimen Type: URINE No comment entered. Ordering Provider: ANTONIO ACEVEDO Report Released Date/Time: Feb 02, 2023 04:39 PM Reporting Lab: [facility] [address] [facility] [address] Performing Lab: [facility] [address] [facility] [address] [place] MICROALB UMIN CREATINI NE RATIO PANEL CREATININE [MASS/VOLU ME] IN URINE 154.29 mg/dL 02/09 Specimen Type: URINE No comment entered. Ordering Provider: ANTONIO ACEVEDO Report Released Date/Time: Feb 02, 2023 04:39 PM Reporting Lab: [facility] [address] [facility] [address] Performing Lab: [facility] [address] [facility] [address] [place]ital Signs Combined list of inpatient and outpatient Vital Signs from Department of Defense and Veterans Affairs, ranging from 12 months to all on record, depending upon the facility. Vital Sign Value Date Comments Source SYSTOLIC BLOOD PRESSURE 128 03/06/2024 15:09:07 [place] DIASTOLIC BLOOD PRESSURE 74 03/06/2024 15:09:07 [place] PULSE OXIMETRY 98 03/06/2024 15:09:07 [place] WEIGHT 212 03/06/2024 15:09:07 [place] BMI 28kg/m2 03/06/2024 15:09:07 [place] TEMPERATURE 97.6 03/06/2024 15:09:07 [place] PULSE 66 03/06/2024 15:09:07 [facility] SYSTOLIC BLOOD PRESSURE 124 08/15/2023 14:02:28 [place] DIASTOLIC BLOOD PRESSURE 79 08/15/2023 14:02:28 [place] PULSE OXIMETRY 97 08/15/2023 14:02:28 [place] WEIGHT 213 08/15/2023 14:02:28 [place] BMI 28kg/m2 08/15/2023 14:02:28 [place] PAIN 4 08/15/2023 14:02:28 [place] HEIGHT 73 08/15/2023 14:02:28 [place] TEMPERATURE 97.3 08/15/2023 14:02:28 [place] PULSE 66 08/15/2023 14:02:28 [place] RESPIRATION 20 08/15/2023 14:02:28 [place] Encounters Combined list of: 1) Encounters from Department of Veterans Affairs facilities going back up to thelast 18 months. 2) Encounters from the Department of Defense facilities going back up to 280 months. Location Location Details Encounter Type Encounter Number Reason For Visit Attending Provider ADM Date DC Date Status Disposition Source [facility] En[facility] [id number] 12[facility]26 [facility] En[facility] [id number] 01/04 [facility] En[facility] [id number] 01/05 [facility] [id number] 01/05 [facility] En[facility] [id number] 01/08 [facility] En[facility] [id number] 01/08 [facility] En[facility] [id number] RACHEL MILLER 01/15 [facility] En[facility] [id number] 01/22 [facility] [id number] 01/22 [facility] En[facility] [id number] 01/26 [facility] En[facility] [id number] 01/30 [facility] En[facility] [id number] RACHEL MILLER 01/30 [facility] En[facility] [id number] 02/05 [facility] En[facility] [id number] RACHEL MILLER 02/05 [facility] OFFICE O/P EST MOD 30-39 MIN [id number] Diagnos is: ICD-10- CM 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 ([facility]) Outpatient Encounter [id number] 02[place]25 [place] [facility] En[facility] [id number] RACHEL MILLER 03/01 [facility] En[facility] [id number] 03/09 [facility] En[facility] [id number] 03/13 [facility] En[facility] [id number] 03/16 [facility] En[facility] [id number] 04/12 [facility] Encounter [id number] 04/12 [facility] En[facility] [id number] 04/13 [facility] En[facility] [id number] 04/16 [facility] En[facility] [id number] 05/08 [facility] Encounter [id number] 05/08 [facility] En[facility] [id number] 05/22 [facility] En[facility] [id number] 06/29 [facility] En[facility] [id number] 07/19 [facility] En[facility] [id number] 07/20 [facility] [place] OFFICE O/P EST MOD 30 MIN [id number] Diagnos is: ICD-10- CM R60.9 Edema, unspeci fied
MIROSLAVA ANAYA 08/14 [facility] [place] [facility] En[facility] [id number] 08/20 [facility] En[facility] [id number] 09/25 [facility] En[facility] [id number] 11/01 [facility] En[facility] [id number] 11/06 [facility] En[facility] [id number] 11/15 [facility] En[facility] [id number] 11/17 [facility] En[facility] [id number] 11/18 [facility] En[facility] [id number] 11/18 [facility] [id number] 11/19 [facility] [id number] 11/21 [facility] Outpatient Encounter [id number] 11/22 [facility] [place] Outpatient Encounter [id number] 11/26 [place] [facility]P NEW LOW 30 MIN [id number] Diagnos is: ICD-10- CM 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
PAONELIA BUSTOS E L 02/14 [facility] EST HI 40 MIN [id number]. [id number] Diagnos is: ICD-10- CM E11.9 Type 2 diabete s mellitu s without complic ations< br/> NOÉ TRUJILLO VID A 03/06 [place] [facility] ADMN SARSCOV2 VACC 1 DOSE [id number] 1. RONNIEDA VID A 03/06 [place] [facility] [facility] Social History Combined list of available smoking, tobacco, and other social history from Department of Defense and [facility] Affairs facilities. Social History Type Response Date Comment Sourc e Tobacco smoking status IDIS VA-TOBACCO NEVER USED 03/06/2024 [facility] History of tobacco use VA-TOBACCO NEVER USED 02/14/2023 [facility] History of tobacco use [facility]TOBACCO NEVER USED [facility] of tobacco use NV-TOBACCO NEVER USED 01/27/2021 [facility] History of tobacco use NV-TOBACCO NEVER USED 11/08/2017 [facility] History of tobacco use LIFETIME NON-TOBACCO USER 11/08/2017 [place] History of tobacco use LIFETIME NON-TOBACCO USER 11/08/2016 [facility] History of tobacco use LIFETIME NON-TOBACCO USER 10/21/2015 [facility] History of tobacco use LIFETIME NON-TOBACCO USER 09/10/2012 [facility] Plan of Care List of future care activities from Department of Veterans Affairs facilities. Additional future care activities may be listed in the Assessment and Plan section. Date/Time Care Activity Care Activity Detail Facili ty 07/17/2024 AMBULATORY - MEDICINE AMBULATORY - MEDICI [facility]
--- OUTSIDE RECORDS SUMMARY | 2024-05-23 08:20 | XMS_ITS ---
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 Role Phone ELISSA TRUJILLO Primary Care [...] Daugherty's Name Patient's Relationship to Policy Daugherty [employer] MEDICARE SUPPLEMEN MARIEL Apr 27, 2012 [facility] [id number] [phone] ELIZABETH AMOS UL PATIENT AARP MED [facility] MEDICARE SUPPLEMEN MARIEL Apr 27, 2012 [facility] [id number] ELIZABETH AMOS UL PATIENT MEDICARE (WNR) MEDICARE (M) PART B 2011 PART B [id number] ELIZABETH AMOS UL PATIENT MEDICARE (WNR) MEDICARE (M) PART A 2011 PART A [id number] ELIZABETH AMOS UL PATIENT Selected Encounter This section includes the information on record at [place] for the Encounter. Date/Time Encounter Type Encounter Description Reason Pro vider Source Nov 07, 2023 01:21 PM Outpatient Encounter PRIMARY CARE/MEDICINE IHE Encounter Template Text not used by [place] Plan of Treatment: Future Appointments (+ 6 months) and Future Tests (+/- 45 days) The Plan of Treatment section includes future care activities for the patient from all [place] [facility]. This section includes future appointments and future orders which are active, pending or scheduled. Future Appointments This section includes appointments that were scheduled to occur 6 months from the date of the Encounter, up to a maximum of 20 appointments. The data comes from all [place] treatment facilities. Appointment Date/Time Appointment Type Appointme nt Facility Name Dec 19, 2023 02:00 PM AMBULATORY - MEDICINE [facility] Feb 15, 2024 09:00 AM AMBULATORY - MEDICINE [facility] [place] [facility] Mar 06, 2024 03:00 PM AMBULATORY - MEDICINE [facility] Social History: Smoking Status (Most current) and Tobacco Use (All prior to encounter date) This section includes the most current, and the historical, smoking and tobacco- related health factors from the [place] facility where the Encounter took place. Current Smoking Status This section includes the most current smoking, or tobacco-related health factor, from the [place] facility where the Encounter took place. Date/Time Current Smoking Status Comment Facil [facility] Jan 27, 2021 03:35 PM VA-TOBACCO NEVER USED [place] CNTRL [place] [facility] Encounter Notes: All associated encounter notes This section contains the clinical notes associated to the Encounter. Date/Time Encounter Note(s) Provider Source Nov 07, 2023 01:21 PM PRIMARY CARE SECUR E MESSAGING: LOCAL TITLE: PRIMARY CARE SECURE MESSAGING STANDARD TITLE: PRIMARY CARE SECURE MESSAGING DATE OF NOTE: NOV 07, 2023@13:21 ENTRY DATE: NOV 07, 2023@14:21:04 AUTHOR: VENITA CAREY EXP COSIGNER: URGENCY: STATUS: COMPLETED ------Original Message -------- Sent: 11/07/2023 12:49 PM ET From: TOBIN AMOS To: Al ANAYA_PRIMARY CARE_SPOPC Subject: General:Scrip About 2 weeks ago or less, I handed to the information receptionist a scrip for new foot wear. I have not heard anything about it on what is going on. Tobin Amos Mr /es/ VENITA QUINONES Signed: 11/07/2023 14:21 Receipt Acknowledged By: 11/08/2023 07:57 /es/ [facility] SUPERVISOR 11/08/2023 08:55 /es/ SHANE MENA RN REGISTERED NURSE VENITA CAREY CNTRL [facility]
--- OUTSIDE RECORDS SUMMARY | 2024-05-23 08:20 | XMS_ITS | Encounter Summary ---
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 Date/Time Encounter Type Encounter Description Reason Pro vider Source September 26, 2023 07:34 AM Outpatient Encounter PRIMARY CARE/MEDICINE IHE Encounter Template Text not used by [place] Plan of Treatment: Future Appointments (+ 6 months) and Future Tests (+/- 45 days) The Plan of Treatment section includes future care activities for the patient from all [place] treatmentfa[facility] health [facility]ities. This section includes future appointments and future orders which are active, pending or scheduled. Future Appointments This section includes appointments that were scheduled to occur 6 months from the date of the Encounter, up to a maximum of 20 appointments. The data comes from all [place] treatment facilities. Appointment Date/Time Appointment Type Appointme nt Facility Name Dec 19, 2023 02:00 PM [facility] Feb 15, 2024 09:00 AM AMBULATORY - MEDICINE [facility]TRL W[facility] [place] [facility] Mar 06, 2024 03:00 PM AMBULATORY - MEDICINE [facility] Social History: Smoking Status (Most current) and Tobacco Use (All prior to encounter date) This section includes the most current, and the historical, smoking and tobacco- related health factors from the [place] facility where the Encounter took place. Current Smoking Status This section includes the most current smoking, or tobacco-related health factor, from the [place] facility where the Encounter took place. Date/Time Current Smoking Status Comment Facil ity Jan 27, 2021 03:35 PM VA-TOBACCO NEVER USED [place] CNTRL [place] [facility] Encounter Notes: All associated encounter notes This section contains the clinical notes associated to the Encounter. Date/Time Encounter Note(s) Provider Source September 26, 2023 09:10 AM ADDENDUM: LOCAL TITLE: Addendum STANDARD TITLE: ADDENDUM DATE OF NOTE: SEPTEMBER 26, 2023@09:10:57 ENTRY DATE: SEPTEMBER 26, 2023@09:10:57 AUTHOR: SHANE MENA EXP COSIGNER: URGENCY: STATUS: COMPLETED Adding PCP to review and advise. /med/ SHANE MENA RN REGISTERED NURSE Signed: 09/26/2023 09:11 Receipt Acknowledged By: 09/26/2023 16:44 /es/ KEO ANAYA MD PHYSICIAN ========= --- Original Document --- 09/26/23 PRIMARY CARE SECURE MESSAGING: ------Original Message -------- Sent: 09/26/2023 01:08 AM ET From: TOBIN AOMS To: Al ANAYA_PRIMARY CARE_SPO Subject: Medication:med Please prescribe me the following RX#[id number] SEMAGLUTIDE 1MG/0.75ML INJ PEN 3ML RX#[id number] and METOPROLOL TARTRATE 50MG TAB RX#[id number] both have 0 refills Tobin Schafer /es/ VENITA QUINONES Signed: 09/26/2023 08:34 Receipt Acknowledged By: * AWAITING SIGNATURE * WEI OCHOA 09/26/2023 09:11 /es/ SHANE MENA RN REGISTERED NURSE SHANE MENA [place] [facility] [facility] September 26, 2023 07:34 AM PRIMARY CARE SECUR E MESSAGING: LOCAL TITLE: PRIMARY CARE SECURE MESSAGING STANDARD TITLE: PRIMARY CARE SECURE MESSAGING DATE OF NOTE: SEPTEMBER 26, 2023@07:34 ENTRY DATE: SEPTEMBER 26, 2023@08:34:16 AUTHOR: VENITA CAREY EXP COSIGNER: URGENCY: STATUS: COMPLETED PRIMARY CARE SECURE MESSAGING Has ADDENDA ------Original Message -------- Sent: 09/26/2023 01:08 AM ET From: TOBIN AMOS To: Al ANAYA_PRIMARY CARE_SPO Subject: Medication:med Please prescribe me the following RX#[id number] SEMAGLUTIDE 1MG/0.75ML INJ PEN 3ML RX#[id number] and METOPROLOL TARTRATE 50MG TAB RX#[id number] both have 0 refills Tobin Schafer /med/ VENITA QUINONES Signed: 09/26/2023 08:34 Receipt Acknowledged By: 09/28/2023 08:42 /es/ WEI OCHOA LPN LICENSED PRACTICAL NURSE 09/26/2023 09:11 /es/ SHANE MENA, RN REGISTERED NURSE 09/26/2023 ADDENDUM STATUS: COMPLETED Adding PCP to review and advise. /med/ SHANE MENA, RN REGISTERED NURSE Signed: 09/26/2023 09:11 Receipt Acknowledged By: 09/26/2023 16:44 /es/ KEO ANAYA MD PHYSICIAN VENITA CAREY CNTRL [facility]
--- OUTSIDE RECORDS SUMMARY | 2024-05-23 08:20 | XMS_ITS | Encounter Summary ---
Author Name [place] Address [address] [place] [address] Care Team Providers Care Resource Room Teacher Name Role Phone ELISSA TRUJILLO Primary Care [...] PLAN MEDICARE SUPPLEMEN MARIEL Apr 27, 2012 [facility] [id number] ELIZABETH AMOS UL PATIENT AARP MED [facility] MEDICARE SUPPLEMEN MARIEL Apr 27, 2012 [facility] [id number] [phone] ELIZABETH AMOS UL PATIENT MEDICARE (WNR) MEDICARE (M) PART A 2011 PART A [id number] ELIZABETH AMOS UL PATIENT MEDICARE (WNR) MEDICARE (M) PART B 2011 PART B [id number] ELIZABETH AMOS UL PATIENT Selected Encounter This section includes the information on record at [place] for the Encounter. Date/Time Encounter Type Encounter Description Reason Pro vider Source Aug 21, 2023 02:59 PM Outpatient Encounter PRIMARY CARE/MEDICINE IHE Encounter Template Text not used by [place] Plan of Treatment: Future Appointments (+ 6 months) and Future Tests (+/- 45 days) The Plan of Treatment section includes future care activities for the patient from all [place] treatmentfacilities. This section includes future appointments and future orders which are active, pending or scheduled. Future Appointments This section includes appointments that were scheduled to occur 6 months from the date of the Encounter, up to a maximum of 20 appointments. The data comes from all [place] treatment facilities. Appointment Date/Time Appointment Type Appointme nt Facility Name Dec 19, 2023 02:00 PM [facility] Feb 15, 2024 09:00 AM [facility] MEDICINE [facility] Lab Results: +/- 30 days of the encounter This section includes the Chemistry and Hematology Lab Results on record with [place] for the patient. Radiology Reports and Pathology Reports are provided separately, in subsequent sections. Lab Results This section contains the Chemistry/Hematology Results that were resulted 30 days before or 30 daysafter the date of the Encounter. Date/Time Source Result Type Result - Unit Interpretation Reference Range Comment Aug 07, 2023 01:17 PM [facility] LIPID PANEL FASTING Specimen Type: SERUM No comment entered. Ordering Provider: KEO ANAYA Report Released Date/Time: Jul 23, 2023 05:25 PM Reporting Lab: [address] [address] Performing Lab: [address] [address] CHOLESTEROL 140 mg/dL TRIGLYCERIDE 141 mg/dL 0-150 LDL calculated 65 mg/dL 0-129 CHOL/HDL 3.0 HDL CHOLESTEROL 47 mg/dL 40-60 Aug 07, 2023 01:17 PM [facility] BASIC METABOLIC PANEL (fasting) Specime n Type: SERUM No comment entered. Ordering Provider: KEO ANAYA Report Released Date/Time: Jul 23, 2023 05:25 PM Reporting Lab: [address] [address] Performing Lab: [address] [address] UREA NITROGEN 31 mg/dL H 7-25 GLUCOSE 124 mg/dL H 65-100 SODIUM 137 mmol/L 135-145 POTASSIUM 4.2 mmol/L 3.5-5.0 CHLORIDE 100 mmol/L 100-110 CO2 24 meq/L 20-30 CREATININE, Serum 1.33 mg/dL 0.50-1.40 eGFR(CKD-EPI 2020) 55 mL/min L >60 Aug 07, 2023 01:17 PM [facility] LIVER FUNCTION Specimen Type: SERUM No comment entered. Ordering Provider: KEO ANAYA Report Released Date/Time: Jul 23, 2023 05:25 PM Reporting Lab: [address] [address] Performing Lab: [address] [address] PROTEIN,TOTAL 7.0 g/dL 6.0-8.3 ALBUMIN 3.6 g/dL 3.5-5.0 ALKALINE PHOSPHATASE 90 U/L 40-150 AST 25 U/L 5-34 ALT 18 U/L BILIRUBIN, TOTAL 0.4 mg/dL 0.2-1.2 Aug 07, 2023 01:17 PM [facility] HEMOGLOBIN A1C PANEL Specimen Type: BLOOD Comment: [...] Jul 23, 2023 05:25 PM Reporting Lab: [address] [address] Performing Lab: [address] [address] HEMOGLOBIN A1C 5.9 H 4.0-5.6 Aug 07, 2023 01:17 PM [facility] CBC AND DIFF (AUTO) Specimen Type: BLOOD No comment entered. Ordering Provider: KEO ANAYA Report Released Date/Time: Jul 23, 2023 05:25 PM Reporting Lab: [address] [address] Performing Lab: [address] [place] [address] WBC 6.41 10*3/uL 4.50-11.00 RBC 4.43 10*6/uL 4.23-5.66 HGB 12.8 g/dL 12.8-17 HCT 38.9 L 39.2-50.4 MCV 87.8 fL 82-99 MCHC 32.9 g/dL 30.8-35.1 PLT 270 10*3/uL 140-360 RDW-CV 13.4 12.0-16.0 Dawes, Abs 0.77 10*3/uL 0.30-1.10 MCH 28.9 pg 26.2-32.6 Neut % 63.0 43.7-75.8 Lymph % 19.8 14.0-42.3 Dawes % 12.0 5.1-13.7 Eos % 3.1 0.4-6.8 [...] and tobacco- related health factors from the [place] facility where the Encounter took place. Current Smoking Status This section includes the most current smoking, or tobacco-related health factor, from the [place] facility where the Encounter took place. Date/Time Current Smoking Status Comment Padmini willingham Jan 27, 2021 03:35 PM VA-TOBACCO NEVER USED [facility] Encounter Notes: All associated encounter notes This section contains the clinical notes associated to the Encounter. Date/Time Encounter Note(s) Provider Source Aug 21, 2023 02:59 PM PRIMARY CARE SECUR E MESSAGING: LOCAL TITLE: PRIMARY CARE SECURE MESSAGING STANDARD TITLE: PRIMARY CARE SECURE MESSAGING DATE OF NOTE: AUG 21, 2023@14:59 ENTRY DATE: AUG 21, 2023@15:59:24 AUTHOR: VENITA CAREY EXP COSIGNER: URGENCY: STATUS: COMPLETED PRIMARY CARE SECURE MESSAGING Has ADDENDA ------Original Message -------- Sent: 08/21/2023 03:54 PM ET From: TOBIN AMOS To: Al ANAYA_PRIMARY CARE_[facility] Subject: General:OZEMPIC Dr Gray reviewed your lab results. The A1c is elevated according to the [place] lab standards. She recommends increasing Ozempic to 2mg weekly. She asks if the [place] doctor is prescribing this medication for you? Thank you, My A1c was low 5.9, I think Tobin Amos /es/ VENITA QUINONES Signed: 08/21/2023 15:59 Receipt Acknowledged By: 2023 09:28 /med/ WEI OCHOA LPN LICENSED PRACTICAL NURSE 2023 09:43 /es/ ANGELA SHEA RN REGISTERED NURSE 08/24/2023 ADDENDUM STATUS: COMPLETED Called without success. Left VM to call clinic back. /med/ ANGELA SHEA RN REGISTERED NURSE Signed: 08/24/2023 15:16 2023 ADDENDUM STATUS: COMPLETED Attempted to call again without success. Left VM to call clinic back. /med/ ANGELA SHEA RN REGISTERED NURSE Signed: 2023 09:43 2023 ADDENDUM STATUS: COMPLETED called back. Advised that, per PCP, to continue Ozempic as prescribed by PCP. /med/ ANGELA SHEA RN REGISTERED NURSE Signed: 2023 14:24 2023 ADDENDUM STATUS: COMPLETED made aware via staff that I don't feel that it's appropriate to increase Oaempic dose to 2mg given HgbA1c 5.9 and BMI of 28. /es/ KEO ANAYA MD PHYSICIAN Signed: 2023 14:28 VENITA CAREY [place] [facility]
--- OUTSIDE RECORDS SUMMARY | 2024-05-23 08:20 | XMS_ITS | Encounter Summary ---
Author Name Department [place] Organization [place] Address [address] [place] [address] Care Team Providers Care Final Finisher Name Role Phone ELISSA TRUJILLO Primary Care [...] PLAN MEDICARE SUPPLEMEN MARIEL Apr 27, 2012 [facility] [id number] ELIZABETH AMOS UL PATIENT AARP MED [facility] MEDICARE SUPPLEMEN MARIEL Apr 27, 2012 [facility] [id number] ELIZABETH AMOS UL PATIENT MEDICARE (WNR) MEDICARE (M) PART A 2011 PART A [id number] ELIZABETH AMOS UL PATIENT MEDICARE (WNR) MEDICARE (M) PART B 2011 PART B [id number] ELIZABETH AMOS UL PATIENT Selected Encounter This section includes the information on record at [place] for the Encounter. Date/Time Encounter Type Encounter Description Reason Pro vider Source Nov 18, 2023 09:46 PM Outpatient Encounter PRIMARY CARE/MEDICINE IHE Encounter Template Text not used by [place] Plan of Treatment: Future Appointments (+ 6 months) and Future Tests (+/- 45 days) The Plan of Treatment section includes future care activities for the patient from all [place] treatmentfacilities. This section includes future appointments and future orders which are active, pending or scheduled. Future Appointments This section includes appointments that were scheduled to occur 6 months from the date of the Encounter, up to a maximum of 20 appointments. The data comes from all [place] treatment facilities. Appointment Date/Time Appointment Type Appointme nt Facility Name Dec 19, 2023 02:00 PM AMBULATORY - MEDICINE [facility] Feb 15, 2024 09:00 AM AMBULATORY - MEDICINE [facility]TRL [place] [facility] Mar 06, 2024 03:00 PM AMBULATORY - MEDICINE [facility] Social History: Smoking Status (Most current) and Tobacco Use (All prior to encounter date) This section includes the most current, and the historical, smoking and tobacco- related health factors from the [place] facility where the Encounter took place. Current Smoking Status This section includes the most current smoking, or tobacco-related health factor, from the [place] facility where the Encounter took place. Date/Time Current Smoking Status Comment Facil ity Jan 27, 2021 03:35 PM VA-TOBACCO NEVER USED [place] CNTR[place] [facility] Encounter Notes: All associated encounter notes This section contains the clinical notes associated to the Encounter. Date/Time Encounter Note(s) Provider Source Nov 18, 2023 09:46 PM PRIMARY CARE SECUR E MESSAGING: LOCAL TITLE: PRIMARY CARE SECURE MESSAGING STANDARD TITLE: PRIMARY CARE SECURE MESSAGING DATE OF NOTE: NOV 18, 2023@21:46 ENTRY DATE: NOV 18, 2023@22:46:18 AUTHOR: VENITA CAREY EXP COSIGNER: URGENCY: STATUS: COMPLETED PRIMARY CARE SECURE MESSAGING Has ADDENDA ------Original Message -------- Sent: 11/16/2023 06:22 PM ET From: TOBIN AMOS To: Al ANAYA_PRIMARY CARE_SPOPC Subject: General:Blood test Attachments: document2.pdf (131.50 KB) [employer] [id number] Blood test Tobin Amos Mr /es/ VENITA QUINONES Signed: 11/18/2023 22:46 Receipt Acknowledged By: 11/23/2023 14:28 /es/ WEI OCHOA LPN LICENSED PRACTICAL NURSE 11/20/2023 20:58 /es/ JASON MILLER BSN RN-BC REGISTERED NURSE for SHANE MENA 11/18/2023 ADDENDUM STATUS: COMPLETED LABWORK PLACED IN PACT 1NP FAX FOLDER /med/ VENITA QUINONES Signed: 11/18/2023 22:47 V[facility]ITA CARE[facility]
--- OUTSIDE RECORDS SUMMARY | 2024-05-23 08:20 | XMS_ITS | Encounter Summary ---
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 Date/Time Encounter Type Encounter Description Reason Pro vider Source Nov 19, 2023 09:44 AM Outpatient Encounter ADMIN PAT ACTIVTIES (MASNONCT) [facility] Encounter Template Text not used by [place] Plan of Treatment: Future Appointments (+ 6 months) and Future Tests (+/- 45 days) The Plan of Treatment section includes future care activities for the patient from all [place] treatmentfacilities. This section includes future appointments and future orders which are active, pending or scheduled. Future Appointments This section includes appointments that were scheduled to occur 6 months from the date of the Encounter, up to a maximum of 20 appointments. The data comes from all [place] treatment facilities. Appointment Date/Time Appointment Type Appointme nt Facility Name Dec 19, 2023 02:00 PM AMBULATORY - MEDICINE [facility] Feb 15, 2024 09:00 AM [facility]BULATORY - MEDICINE [facility] Mar 06, 2024 03:00 PM AMBULATORY - MEDICINE [facility] Social History: Smoking Status (Most current) and Tobacco Use (All prior to encounter date) This section includes the most current, and the historical, smoking and tobacco- related health factors from the [place] facility where the Encounter took place. Current Smoking Status This section includes the most current smoking, or tobacco-related health factor, from the [place] facility where the Encounter took place. Date/Time Current Smoking Status Comment Facil ity Jan 27, 2021 03:35 PM [place]-TOBACCO NEVER USED [place] [facility] Encounter Notes: All associated encounter notes This section contains the clinical notes associated to the Encounter. Date/Time Encounter Note(s) Provider Source Nov 19, 2023 09:45 AM ADMINISTRATIVE NOT E: LOCAL TITLE: CCC: SCHEDULING ADMINISTRATION STANDARD TITLE: ADMINISTRATIVE NOTE DATE OF NOTE: NOV 19, 2023@09:45:02 ENTRY DATE: NOV 19, 2023@09:45:02 AUTHOR: JOJO SHAH COSIGNER: URGENCY: STATUS: COMPLETED CCC: SCHEDULING ADMINISTRATION Has ADDENDA Patient Demographics Patient Name: REUBEN AMOS Patient Primary Phone: [phone] Patient Primary [address]: [address] [place] [id number] Patient : 1945 Patient Age: 78 Caller/Recipient Relation to Patient: Self Scheduling Cannot Complete Scheduling Action Reason: Restricted / Unavailable Clinic Requested Service(s): Primary Care Scheduling Note Reason: Cannot Complete Appointment Request Open Request: RTC (Return to Clinic Order) Administrative Administrative Note Reason: Other Administrative Note Comments: Ayden is calling to R/S canceled by clinic appointment for provider change for 02/20/2024-clinic schedule restricted. prefers a Sunday or a Sunday in the afternoon. Ayden is requesting a call back to assist. Best call back # [phone] /med/ JOJO KISER 1 [facility] Signed: 11/19/2023 09:45 Receipt Acknowledged By: 11/21/2023 12:32 /es/ WEI OCHOA LPN LICENSED PRACTICAL NURSE 11/19/2023 15:16 /med/ CLAUDIA GASTELUM ADVANCE CLAIMS SUPPORT SPECIALIST 11/19/2023 ADDENDUM STATUS: COMPLETED THIS PETROLOGIST WAS UNABLE TO REACH TO RESCHEDULE w/PACT 1 MADELYN TRUJILLO. PROVIDER DOES NOT HAVE AVAILABLE DATES ON SUNDAY and SUNDAY /med/ CLAUDIA GASTELUM ADVANCE CLAIMS SUPPORT SPECIALIST Signed: 11/19/2023 15:16 JOJO SHAH CNTRL [facility]
--- OUTSIDE RECORDS SUMMARY | 2024-05-23 08:20 | XMS_ITS | Encounter Summary ---
Author Name [facility] [place] Organization [place] Address [address] [place] [address] Care Team Providers Care Telegraph Messenger Name Role Phone ELISSA TRUJILLO [facility] Insurance Providers: All historical and current [...] PLAN MEDICARE SUPPLEMEN MARIEL Apr 27, 2012 PLAN [id number] [place] PATIENT AAR MED [facility] MEDICARE SUPPLEMEN MARIEL Apr 27, 2012 [facility] [id number] [phone] [place] PATIENT MEDICARE (WNR) MEDICARE (M) PART A 2011 PART A [id number] [place] MEDICARE (WNR) MEDICARE (M) PART B 2011 PART B [id number] [place] PATIENT Selected Encounter This section includes the information on record at CT for the Encounter. Date/Time Encounter Type Encounter Description Reason Provider Source Aug 15, 2023 02:00 PM OFFICE O/P EST MOD 30 MIN PRIMARY CARE/MEDICINE ICD-10-CM R60.9 Edema, unspecified KEO ANAYA Lily Encounter Template Text not used by [facility] Assessments - Encounter Diagnoses This section includes the primary and secondary diagnoses documented for the Encounter. Date/Time Primary/Secondary Diagnosis Diagnosis Name Provider Source Aug 30, 2023 08:38 AM PRIMARY Edema, unspecified ANAYAKEO SHEFFIELD IVAN Aug 30, 2023 08:38 AM SECONDARY Essential (primary) hypertension KEO ANAYA [facility] Aug 30, 2023 08:38 AM SECONDARY Hyperlipidemia, unspecified ANAYA,KEO [facility] Aug 30, 2023 08:38 AM SECONDARY Iron deficiency anemia, unspecified ANAYA,[facility] Aug 30, 2023 08:38 AM SECONDARY Pain in right hip ANAYAKEO SHEFFIELD [facility] Aug 30, 2023 08:38 AM SECONDARY Polyarthritis, unspecified ANAYA,KEO Vazquez [facility] Aug 30, 2023 08:38 AM SECONDARY Pressure ulcer of unspecified buttock, unspecified stage ANAYA,[facility] Aug 30, 2023 08:38 AM SECONDARY Psoriasis, unspecified ANAYA,[facility] Aug 30, 2023 08:38 AM SECONDARY Type 2 diabetes mellitus without complications KEO ANAYA [facility] Plan of Treatment: Future Appointments (+ 6 months) and Future Tests (+/- 45 days) The Plan of Treatment section includes future care activities for the patient from all CT treatmentfacilities. This section includes future appointments and future orders which are active, pending or scheduled. Future Appointments This section includes appointments that were scheduled to occur 6 months from the date of the Encounter, up to a maximum of 20 appointments. The data comes from all CT treatment facilities. Appointment Date/Time Appointment Type Appointme nt Facility Name Dec 19, 2023 02:00 PM AMBULATORY - MEDICINE [facility] Feb 15, 2024 09:00 AM AMBULATORY - MEDICINE CT C [facility] Lab Results: +/- 30 days of the encounter This section includes the Chemistry and Hematology Lab Results on record with CT for the patient. Radiology Reports and Pathology Reports are provided separately, in subsequent sections. Lab Results This section contains the Chemistry/Hematology Results that were resulted 30 days before or 30 daysafter the date of the Encounter. Date/Time Source Result Type Result - Unit Interpretation Reference Range Comment Aug 07, 2023 01:17 PM [facility] LIPID PANEL FASTING Specimen Type: SERUM No comment entered. Ordering Provider: KEO ANAYA Report Released Date/Time: Jul 23, 2023 05:25 PM Reporting Lab: [address] [address] Performing Lab: [address] [address] CHOLESTEROL 140 mg/dL TRIGLYCERIDE 141 mg/dL 0-150 LDL calculated 65 mg/dL 0-129 CHOL/HDL 3.0 HDL CHOLESTEROL 47 mg/dL 40-60 Aug 07, 2023 01:17 PM [facility] BASIC METABOLIC PANEL (fasting) Specime n Type: SERUM No comment entered. Ordering Provider: KEO ANAYA Report Released Date/Time: Jul 23, 2023 05:25 PM Reporting Lab: [address] [address] Performing Lab: [address] [address] UREA NITROGEN 31 mg/dL H 7-25 GLUCOSE 124 mg/dL H 65-100 SODIUM 137 mmol/L 135-145 POTASSIUM 4.2 mmol/L 3.5-5.0 CHLORIDE 100 mmol/L 100-110 CO2 24 meq/L 20-30 CREATININE, Serum 1.33 mg/dL 0.50-1.40 eGFR(CKD-EPI 2020) 55 mL/min L >60 Aug 07, 2023 01:17 PM [facility] LIVER FUNCTION Specimen Type: SERUM No comment entered. Ordering Provider: KEO ANAYA Report Released Date/Time: Jul 23, 2023 05:25 PM Reporting Lab: [address] [address] Performing Lab: [address] [address] PROTEIN,TOTAL 7.0 g/dL 6.0-8.3 ALBUMIN 3.6 g/dL 3.5-5.0 ALKALINE PHOSPHATASE 90 U/L 40-150 AST 25 U/L 5-34 ALT 18 U/L BILIRUBIN, TOTAL 0.4 mg/dL 0.2-1.2 Aug 07, 2023 01:17 PM [facility] HEMOGLOBIN A1C PANEL Specimen Type: BLOOD Comment: [...] Jul 23, 2023 05:25 PM Reporting Lab: [address] [address] Performing Lab: [address] [address] HEMOGLOBIN A1C 5.9 H 4.0-5.6 Aug 07, 2023 01:17 PM [facility] CBC AND DIFF (AUTO) Specimen Type: BLOOD No comment entered. Ordering Provider: KEO ANAYA Report Released Date/Time: Jul 23, 2023 05:25 PM Reporting Lab: [address] [address] Performing Lab: [address] [address] WBC 6.41 10*3/uL 4.50-11.00 RBC 4.43 10*6/uL 4.23-5.66 HGB 12.8 g/dL 12.8-17 HCT 38.9 L 39.2-50.4 MCV 87.8 fL 82-99 MCHC 32.9 g/dL 30.8-35.1 PLT 270 10*3/uL 140-360 RDW-CV 13.4 12.0-16.0 [place], Abs 0.77 10*3/uL 0.30-1.10 MCH 28.9 pg 26.2-32.6 Neut % 63.0 43.7-75.8 Lymph % 19.8 14.0-42.3 [place] % 12.0 5.1-13.7 Eos % 3.1 0.4-6.8 Baso % 1.6 0.1-2.0 Neut, Abs 4.04 10*3/uL 2.20-7.60 Lymph, Abs 1.27 10*3/uL 1.00-3.20 Eos, Abs 0.20 10*3/uL 0.03-0.44 Baso, Abs 0.10 10*3/uL 0.01-0.13 Immature Gran % 0.5 0.0-0.7 Immature Gran, Abs 0.03 10*3/uL 0.00-0.06 Vital Signs: All taken on the encounter date This section contains inpatient and outpatient Vital Signs collected on the date of the Encounter. Date/Time Temperature Pulse Blood Pressure Respiratory Rate SP02 Pain Height Weight Body Mass Index Source Aug 15, 2023 02:02 PM 97.3 66 124/79 20 97 4 73 213 28 [facility] IE Social History: Smoking Status (Most current) and Tobacco Use (All prior to encounter date) This section includes the most current, and the historical, smoking and tobacco- related health factors from the CT facility where the Encounter took place. Current Smoking Status This section includes the most current smoking, or tobacco-related health factor, from the CT facility where the Encounter took place. Date/Time Current Smoking Status Comment Padmini willingham Feb 14, 2023 01:[address]-TOBACCO NEVER USED [facility] Tobacco Use History This section includes a history of the smoking, or tobacco-related health factors, that were collected on or before the date of the Encounter. The data comes from the CT facility where the Encounter took place. Date/Time Smoking Status/Tobacco Use Comment F magnus Jan 27, 2022 02:[address]-TOBACCO NEVER USED [facility] Nov 08, 2017 10:[address]-TOBACCO NEVER USED [facility] Nov 08, 2017 08:55 AM LIFETIME NON-TOBACCO USER [facility] Nov 08, 2016 09:08 AM LIFETIME NON-TOBACCO USER [facility] October 21, 2015 02:24 PM LIFETIME NON-TOBACCO USER [facility] Sep 10, 2012 09:28 AM LIFETIME NON-TOBACCO USER [facility] Encounter Notes: All associated encounter notes This section contains the clinical notes associated to the Encounter. Date/Time Encounter Note(s) Provider Source Aug 15, 2023 02:07 PM PHYSICIAN NOTE: LOCAL TITLE: MD NOTE STANDARD TITLE: PHYSICIAN NOTE DATE OF NOTE: AUG 15, 2023@14:07 ENTRY DATE: AUG 15, 2023@14:07:48 AUTHOR: KEO ANAYA COSIGNER: URGENCY: STATUS: COMPLETED PRIMARY CARE VISIT REUBEN AMOS, is a 77 yo WHITE MALE who presents today at the [facility]. TYPE OF VISIT: Face to face CHART REVIEWED, PATIENT EXAMINED. 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 Service Connection/Rated Disabilities: Service Connected Disabilities with % Eligibility: [facility] VERIFIED HEALTHCARE PROVIDERS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 PHYSICAL EXAMINATION: General: Well-appearing, in no obvious distress. Mental Status: Alert and oriented x 3. Head: Normocephalic, atraumatic. Eyes: PERRL. EOMI. Anicteric sclerae. ENT: Moist oral mucosa. dentition Neck: Supple. FROM. No JVD. No LAD. No bruit. Thyroid unremarkable. Lungs: CTAB. Normal chest excursion. Eupneic respirations. CV: Heart tones S1, S2. RRR. No M/G/R. No peripheral edema GI: Abdomen is soft and nontender. No palpable mass or organomegaly. Ext: No cyanosis or clubbing. No gross deformities. Neuro: CN II through XII grossly intact. Normal speech. Normal gait. Integument: Skin warm and dry. No rashes or lesions on visible areas. Psych: Normal mood and affect. Normal judgment. Cooperative with exam, follows commands. ALLERGIES: Patient has answered [facility] PREVENTIVE MEDICINE GOALS Advance Directive Screen [facility] Jan 27 Medication Reconciliation DUE NOW PAVE Foot Check DUE NOW Eye Care At-Risk Screen DUE NOW ASSESSMENT/PLAN: Active problems - Computerized Problem List is the source for the followin. Hyperlipidemia (SCT 07387531)- controlled on very small dose of Rosuvastatin 2. Psoriasis- followed by Derm 3. Active pressure ulcer (SNOMED CT 906451573) Currently being managed by [facility] 4. Iron deficiency anemia- resolved 5. OA - Osteoarthritis of hip- having surgery next week Patient aware to hold his Metformin and Ozempic 6. DM - Diabetes mellitus (SNOMED CT 39010310)- excellent control recheck labs prior to next visit NON-fasting 9. HTN - Hypertension (SNOMED CT 71714194) well controlled on meds continue 10. elevated BUN likely related to spironolactone and HCTZ 11. c/o Edema long discussion today likely related to sedentary due to hip, wt, age educ to mobilize fluid as possible will hopefully improve once his hip is fixed Total time I spent on this visit was 30 minutes and included a review of chart, labs, notes, physical exam and discussion/education of patient. LAB ORDERS FOR NEXT VISIT: NURSING: PLEASE ORDER APPROPRIATE CHRONIC DISEASE LAB ORDERS FOLLOW UP: Return to clinic as noted below and/or sooner PRN UPCOMING APPOINTMENTS: No data available All medications were reconciled during this visit. No barriers noted; patient understands and agrees to current treatment plan. If patient has any questions, concerns or changes in current health status he/she will call or come in to the [facility]. 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 Narr. - Type 2 Diabetes Mellitus with Diabetic Neuropathy, Action: No Referral Ordered: Eye exam completed elsewhere by an Financial Aids Officer or Welcome Wagon Host/Hostess Diabetic retinal exam result: Negative for Retinopathy Date: February, ? Exact date is unknown Location: [facility]) Comment: mild macular degen Medication Reconciliation: Outpatient: Has the patient been taking medications as documented in the EMLR? YES: The patient has been taking medications as documented in the EMLR. Essential Medication List for Review used to complete this medication reconciliation. INCLUDED IN THIS LIST: Alphabetical list of active outpatient prescriptions dispensed from this VA (local) and dispensed from another VA or DoD facility (remote) as well as inpatient orders (local, pending and active), local clinic medications, locally documented non-VA medications, and local prescriptions that have or been discontinued in the past 90 days. - All changes in medications, including all non-VA/Herbal/OTC medications were entered into CPRS. - If there were any medications the patient should no longer take, they were discontinued. - The patient/caregiver was instructed to update this list, discard old lists, and take this list to the next appointment, whether with a VA or non-VA provider. /es/ KEO ANAYA MD PHYSICIAN Signed: 08/15/2023 14:46 KEO ANAYA Aug 15, 2023 02:03 PM PREVENTIVE MEDICIN E NURSING NOTE: LOCAL TITLE: CLINICAL REMINDERS/NURSING STANDARD TITLE: PREVENTIVE MEDICINE NURSING NOTE DATE OF NOTE: AUG 15, 2023@14:03 ENTRY DATE: AUG 15, 2023@14:04:02 AUTHOR: WEI OCHOA EXP COSIGNER: URGENCY: STATUS: COMPLETED The was given an advanced directive to complete own his own. The Med Rec will be completed by the PCP Sexual Orientation: The patient thinks of their sexual orientation as: Straight or Heterosexual Prefer not to answer RHS Screen: RHS Screen Environmental Check Upon inquiry, the individual reports that the environment is safe to proceed. Informed Consent to Screen and Document The individual consents to proceed with screening. The individual consents to documentation of responses. PRIMARY SCREEN: In the past 12 months, how often did a current or former intimate partner (e.g., boyfriend, girlfriend, , , sexual partner): 1. Scream or curse at you Never 2. Insult or talk down to you Never 3. Threaten you with harm Never 4. Physically hurt you Never 5. Force or pressure you to have sexual contact against your will, or when you were unable to say no Never ?? The HITS tool (items 1-4 above) is US copyright protected by Toy Chanel MD, and the user has full rights to use it throughout the CT system. PRIMARY SCREEN RESULT: The Primary Screen is NEGATIVE. The individual answered never to all forms of IPV above (i.e., answered never to all 5 items) The individual accepts education and/or resources: Yes - Offered verbal universal education about IPV EDUCATION: The individual indicated readiness to learn. Education offered during this session as noted above. The individual indicated understanding by asking relevant questions and making appropriate comments. No barriers to learning were observed or identified. PAVE Foot Check: A complete foot check was completed at this encounter. VISUAL INSPECTION: Includes inspection for skin breaks, deformity, erythema, trauma, pallor on elevation, dependent rubor, nail deformities, extensive callus and pitting edema. Visual exam results: Abnormal Observations: Hammertoes, Thickened toenails PEDAL PULSES: Includes palpation of dorsalis and posterior tibial pulses and signs/symptoms of vascular compromise like pain, pallor, parasthesia or paralysis. Present (even if diminished) SENSORY CHECK: Includes 10 gram Monofilament (Raritan-Nori) test of sensation. Intact (Greater than or equal to 80% of sites checked) Abnormal (Less than 80% of sites checked): Abnormal (decreased or absent sensation to monofilament): HIGH-RISK HIGH RISK FOOT EDUCATION: 1. Advised patient that extra depth footwear with soft molded inserts and braces may be required. 2. Advised patient not to walk barefoot. Instructed the patient to pay close attention to the style and fit of shoes. 3. Explained the importance of daily foot checks. Explained that loss of sensation leads to callouses. Callouses break down, which result in ulcers that may lead to gangrene and amputation. 4. Stressed the importance of daily foot hygiene. Warm (not hot) bathing of the feet, complete drying and thorough inspection for changes in the condition of the skin constitute daily foot care. Demonstrated how to do a thorough foot check. 5. Emphasized the use of clean, non-restrictive socks/stockings and well fitting shoes. 6. Stressed the importance of immediate follow-up of any foot injuries or ulcers. Explained that he/she should be non-weight bearing whenever there are lesions on the foot, to prevent cellular damage. 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 Narr. - Type 2 Diabetes Mellitus with Diabetic Neuropathy, Action: Patient has a future eye care appointment scheduled within the next 90 days. Date of Appointment: 10/18 /med/ WEI OCHOA LPN LICENSED PRACTICAL NURSE Signed: 08/15/2023 14:10 WEI OCHOA [facility] Aug 07, 2023 10:51 AM ADMINISTRATIVE NOT E: LOCAL TITLE: ADMINISTRATIVE NOTE STANDARD TITLE: ADMINISTRATIVE NOTE DATE OF NOTE: AUG 07, 2023@10:51 ENTRY DATE: AUG 07, 2023@10:51:16 AUTHOR: VENITA CAREY EXP COSIGNER: URGENCY: STATUS: COMPLETED [facility] [address] [place] [id number] [phone] * [phone] * REUBEN Patterson [address] [address] Date: AUG 07, 2023 re: This is a reminder of your upcoming PCP appt with KEO ANAYA Appointment Date: Jul@14:00 Appointment Type: In-person visit (X)Fasting blood work NON fasting blood work LEFT MESSAGE ON VOICEMAIL TO CONFIRM APPT AND LABWORK Sincerely, Office Staff for: KEO ANAYA Primary Care Provider [facility] [address] [address] T [phone] F [phone] Upcoming Appointments: 08/15/2023 14:00 CWM/SO/PACT 2 APPOINTMENT ABBREVIATION SANTOYO (SPOPC OR SO = [address]) (GOPC OR GO = [address]) (MIM or NO = [facility]) (VVC - Video Call) (Tel-X Telephone Visit) ( - Telehealth) /med/ VENITA QUINONES Signed: 08/07/2023 10:51 VENITA CAREY [facility]
--- OUTSIDE RECORDS SUMMARY | 2024-05-23 08:20 | XMS_ITS | Encounter Summary ---
Author Name [facility] [place] Address [address] [place] [id number] Care Team Providers Care Mural Painter Name Role Phone ELISSA TRUJILLO Primary Care [...] PLAN MEDICARE SUPPLEMEN MARIEL Apr 27, 2012 [facility] [id number] [phone] ELIZABETH AMOS UL PATIENT AARP MED [facility] MEDICARE SUPPLEMEN MARIEL Apr 27, 2012 [facility] [id number] [phone] ELIZABETH AMOS UL PATIENT MEDICARE (WNR) MEDICARE (M) PART B 2011 PART B [id number] ELIZABETH AMOS UL PATIENT MEDICARE (WNR) MEDICARE (M) PART A 2011 PART A [id number] ELIZABETH AMOS UL PATIENT Selected Encounter This section includes the information on record at [place] for the Encounter. Date/Time Encounter Type Encounter Description Reason Pro vider Source Nov 19, 2023 11:56 AM Outpatient Encounter PRIMARY CARE/MEDICINE IHE Encounter Template Text not used by [place] Plan of Treatment: Future Appointments (+ 6 months) and Future Tests (+/- 45 days) The Plan of Treatment section includes future care activities for the patient from all [place] treatmentfaour community hospitalities. This section includes future appointments and future orders which are active, pending or scheduled. Future Appointments This section includes appointments that were scheduled to occur 6 months from the date of the Encounter, up to a maximum of 20 appointments. The data comes from all [place] treatment facilities. Appointment Date/Time Appointment Type Appointme nt Facility Name Dec 19, 2023 02:00 PM AMBULATORY - MEDICINE [facility] Feb 15, 2024 09:00 AM AMBULATORY - MEDICINE [facility] Mar 06, 2024 03:00 PM AMBULATORY - MEDICINE [facility] Social History: Smoking Status (Most current) and Tobacco Use (All prior to encounter date) This section includes the most current, and the historical, smoking and tobacco- related health factors from the [place] facility where the Encounter took place. Current Smoking Status This section includes the most current smoking, or tobacco-related health factor, from the [place] facility where the Encounter took place. Date/Time Current Smoking Status Comment Facil ity Jan 27, 2021 03:35 PM VA-TOBACCO NEVER USED [place] [facility] Encounter Notes: All associated encounter notes This section contains the clinical notes associated to the Encounter. Date/Time Encounter Note(s) Provider Source Nov 19, 2023 11:56 AM PRIMARY CARE Uberpong E MESSAGING: LOCAL TITLE: PRIMARY CARE SECURE MESSAGING STANDARD TITLE: PRIMARY CARE SECURE MESSAGING DATE OF NOTE: NOV 19, 2023@11:56 ENTRY DATE: NOV 19, 2023@12:56:14 AUTHOR: CLAUDIA GASTELUM EXP COSIGNER: URGENCY: STATUS: COMPLETED ------Original Message ------ Sent: 11/19/2023 09:51 AM ET From: TOBIN AMOS To: Frantz TRUJILLO_PRIMARY CARE_SPOPC Subject: General:proscription About 2 weeks ago or less, I handed to the molder feeder a scrip for new foot wear. I have not heard anything about it on what is going on. oTbin Schafer /med/ CLAUDIA GASTELUM ADVANCE INDUSTRIAL HYGIENE TECHNICIAN Signed: 11/19/2023 12:56 Receipt Acknowledged By: 12/12/2023 11:17 /es/ ANABELA LEMOSN RN- REGISTERED NURSE 11/21/2023 15:03 /med/ WEI OCHOA LPN LICENSED PRACTICAL NURSE CLAUDIA GASTELUM [facility]
--- OUTSIDE RECORDS SUMMARY | 2024-05-23 08:20 | XMS_ITS ---
Author Name [place] Address [address] [place] [address] Care Team Providers Care Safety Analyst Name Role Phone ELISSA TRUJILLO Primary Care [...] PLAN MEDICARE SUPPLEMEN MARIEL Apr 27, 2012 [facility] [id number] ELIZABETH AMOS UL PATIENT AARP MED [facility] MEDICARE SUPPLEMEN MARIEL Apr 27, 2012 [facility] [id number] ELIZABETH AMOS UL PATIENT MEDICARE (WNR) MEDICARE (M) PART A 2011 PART A [id number] ELIZABETH AMOS UL PATIENT MEDICARE (WNR) MEDICARE (M) PART B 2011 PART B [id number] ELIZABETH AMOS UL PATIENT Selected Encounter This section includes the information on record at [place] for the Encounter. Date/Time Encounter Type Encounter Description Reason Pro vider Source Nov 20, 2023 09:23 AM Outpatient Encounter ADMIN PAT ACTIVTIES (MASNONCT) [facility] Encounter Template Text not used by [place] Plan of Treatment: Future Appointments (+ 6 months) and Future Tests (+/- 45 days) The Plan of Treatment section includes future care activities for the patient from all [place] [facility] [place]. This section includes future appointments and future [...] 2023 02:00 PM AMBULATORY - MEDICINE [facility] Feb 15, 2024 09:00 AM [facility] Mar 06, 2024 03:00 PM AMBULATORY - MEDICINE [facility] Social History: Smoking Status (Most current) and Tobacco Use (All prior to encounter date) This section includes the most current, and the historical, smoking and tobacco- related health factors from the [facility] facility where the Encounter took place. Current Smoking Status This section includes the most current smoking, or tobacco-related health factor, from the [facility] facility where the Encounter took place. Date/Time Current Smoking Status Comment Facil [place] Jan 27, 2021 03:35 PM VA-TOBACCO NEVER USED [place] [facility] Encounter Notes: All associated encounter notes This section contains the clinical notes associated to the Encounter. Date/Time Encounter Note(s) Provider Source Nov 20, 2023 09:23 AM ADMINISTRATIVE NOTE: LOCAL TITLE: CCC: SCHEDULING ADMINISTRATION STANDARD TITLE: ADMINISTRATIVE NOTE DATE OF NOTE: NOV 20, 2023@09:23 ENTRY DATE: NOV 20, 2023@09:23:24 AUTHOR: TANJA JAY COSIGNER: URGENCY: STATUS: COMPLETED CCC: SCHEDULING ADMINISTRATION Has ADDENDA Patient Name: REUBEN AMOS Patient Primary Patient Primary Address: [address] [place] [id number] Patient : Aug Patient Age: 78 Call Back Number: Caller/Recipient Relation to Patient: SELF Expects Callback: YES Administrative Note Reason: Reschedule PCP Appointment Administrative Note Comments: [place] called to reschedule his [facility] PCP appointment for 9/25. This bid writer unable to reschedule in time frame requested due to clinic restriction of offering 0830, 1300, or 1530. Please call back at [phone], is asking for any Sunday, or Sunday in the afternoon. /med/ TANJA JAY [facility] Signed: 11/20/2023 09:27 Receipt Acknowledged By: 11/21/2023 10:41 /med/ WEI OCHOA LPN LICENSED PRACTICAL NURSE 11/20/2023 09:44 /jeromy [employer] ADVANCE CHIEF HUMAN RESOURCES OFFICER 11/20/2023 ADDENDUM STATUS: COMPLETED THIS HIGH WIRE ARTIST SPOKE w/ AND IS BOOKED FOR 03/06/24 LETTER SENT /med/ CLAUDIA [employer] ADVANCE CHIEF HUMAN RESOURCES OFFICER Signed: 11/20/2023 09:44 TANJA JAY [place] CNTR[facility]
--- OUTSIDE RECORDS SUMMARY | 2024-05-23 08:20 | XMS_ITS | Encounter Summary ---
Author Name [place] Address [address] [place] [address] Care Team Providers Care Meter Maker Name Role Phone ELISSA TRUJILLO Primary Care Provider [facility] Insurance Providers: All historical [...] PLAN MEDICARE SUPPLEMEN MARIEL Apr 27, 2012 [facility] [id number] [phone] ELIZABETH AMOS UL PATIENT AAR MED [facility] MEDICARE SUPPLEMEN MARIEL Apr 27, 2012 [facility] [id number] [phone] DANDREPA UL PATIENT MEDICARE (WNR) MEDICARE (M) PART A 2011 PART A [id number] ELIZABETH AMOS UL PATIENT MEDICARE (WNR) MEDICARE (M) PART B 2011 PART B [id number] ELIZABETH AMOS UL PATIENT Selected Encounter This section includes the information on record at [place] for the Encounter. Date/Time Encounter Type Encounter Description Reason Pro vider Source Jun 29, 2023 12:00 AM Outpatient Encounter EVENT (HISTORICAL) IHE Encounter Template Text not used by [place] Plan of Treatment: Future Appointments (+ 6 months) and Future Tests (+/- 45 days) The Plan of Treatment section includes future care activities for the patient from all [place] treatmentfacilities. This section includes future appointments and [...] 15, 2023 02:00 PM AMBULATORY - MEDICINE [facility] Dec 19, 2023 02:00 PM AMBULATORY - MEDICINE [facility] Social History: Smoking Status (Most [...] Encounter took place. Date/Time Current Smoking Status [place] Jan 27, 2021 03:35 PM VA-TOBACCO NEVER USED [place] [facility] [place] [facility]
--- OUTSIDE RECORDS SUMMARY | 2024-05-23 08:20 | XMS_ITS | Encounter Summary ---
Author Name [facility] [place] Organization [place] Address [address] [place] [address] Care Team Providers Care Agate Setter Name Role Phone ELISSA TRUJILLO Primary Care Provider [facility] Insurance Providers: All historical and current Section [...] PLAN MEDICARE SUPPLEMEN MARIEL Apr 27, 2012 [facility] [id number] ELIZABETH AMOS UL PATIENT AARP MED [facility] MEDICARE SUPPLEMEN MARIEL Apr 27, 2012 [facility] [id number] DANDREPA UL PATIENT MEDICARE (WNR) MEDICARE (M) PART A 2011 PART A [id number] ELIZABETH AMOS UL PATIENT MEDICARE (WNR) MEDICARE (M) PART B 2011 PART B [id number] ELIZABETH AMOS UL PATIENT Selected Encounter This section includes the information on record at [place] for the Encounter. Date/Time Encounter Type Encounter Description Reason Pro vider Source Nov 02, 2023 11:57 AM Outpatient Encounter PODIATRY IHE Encounter Template Text not used by [place] Plan of Treatment: Future Appointments (+ 6 months) and Future Tests (+/- 45 days) The Plan of Treatment section includes future care activities for the patient from all [place] [facility]. This section includes future appointments and future orders which are active, pending or scheduled. Future Appointments This section includes appointments that were scheduled to occur 6 months from the date of the Encounter, up to a maximum of 20 appointments. The data comes from all [place] treatment facilities. Appointment Date/Time Appointment Type Appointme nt Facility Name Dec 19, 2023 02:00 PM AMBULATORY - MEDICINE [facility] Feb 15, 2024 09:00 AM AMBULATORY - [facility]ICINE [facility] Mar 06, 2024 03:00 PM AMBULATORY - MEDICINE [facility] Social History: Smoking Status (Most current) and Tobacco Use (All prior to encounter date) This section includes the most current, and the historical, smoking and tobacco- related health factors from the VA facility where the Encounter took place. Current Smoking Status This section includes the most current smoking, or tobacco-related health factor, from the [place] facility where the Encounter took place. Date/Time Current Smoking Status Comment Facil ity Jan 27, 2021 03:35 PM VA-TOBACCO NEVER USED [place] [facility] [place] [facility] Encounter Notes: All associated encounter notes This section contains the clinical notes associated to the Encounter. Date/Time Encounter Note(s) Provider Source Nov 13, 2023 04:20 PM ADDENDUM: LOCAL TITLE: Addendum STANDARD TITLE: ADDENDUM DATE OF NOTE: NOV 13, 2023@16:20:11 ENTRY DATE: NOV 13, 2023@16:20:13 AUTHOR: JEAN ALBARRAN COSIGNER: URGENCY: STATUS: COMPLETED [place] needs a consult for this, he has never been seen by Podiatry. Please place consult. Thank you! /med/ JEAN QUINONES Signed: 11/13/2023 16:20 Receipt Acknowledged By: 11/21/2023 14:07 /med/ ELISSA TRUJILLO NP NURSE PRACTITIONER 11/30/2023 09:32 /med/ SHANE MENA RN REGISTERED NURSE ====== --- Original Document --- 11/02/23 WALK-IN NOTE PRIMARY CARE (T): <====Click to Start Advanced Medical Support presents to the Primary Care clinic with the following request: [ X ]Medication Renewal/Refill [ ]Consultation with Team RN [ ]Symptoms [ ]Other The [place] states they are: [ ]Waiting [ X ]Not Waiting No Walk in visit scheduled with PACT Nurse [ X ] At this encounter the 's demographics were verified. [ X ] At this encounter the [place]'s Insurance information was verified. [ X ] At this encounter the below scheduled visits for the were discussed and appointment reminder card was offered. Future appointments: 02/20/2024 15:00 CWM/SO/PACT 2 [place] [facility] clam picker in the [facility]. Prescription placed in provider's box for review. /med/ DESIREE QUINONES Signed: 11/02/2023 12:03 Receipt Acknowledged By: 11/22/2023 08:53 /med/ SYLVIA GARCIA HEALTH ASSISTANT REAL ESTATE MANAGER 11/06/2023 ADDENDUM STATUS: COMPLETED Reviewed case with Dr. 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 Next available, non emergency. /med/ SYLVIA GARCIA HEALTH ASSISTANT REAL ESTATE MANAGER Signed: 11/06/2023 11:30 Receipt Acknowledged By: 11/07/2023 12:49 /es/ ELISSA TRUJILLO NP NURSE PRACTITIONER 11/13/2023 16:21 /med/ JEAN KRAUSE [place] Nov 06, 2023 11:25 AM ADDENDUM: LOCAL TITLE: Addendum STANDARD TITLE: ADDENDUM DATE OF NOTE: NOV 06, 2023@11:25:41 ENTRY DATE: NOV 06, 2023@11:25:42 AUTHOR: SYLVIA GARCIA EXP COSIGNER: URGENCY: STATUS: COMPLETED Reviewed case with Dr. 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 Next available, non emergency. /med/ SYLVIA GARCIA HEALTH ASSISTANT REAL ESTATE MANAGER Signed: 11/06/2023 11:30 Receipt Acknowledged By: 11/07/2023 12:49 /med/ ELISSA TRUJILLO NP NURSE PRACTITIONER 11/13/2023 16:21 /es/ JEAN QUINONES ====== --- Original Document --- 11/02/23 WALK-IN NOTE PRIMARY CARE (T): <====Click to Start Advanced Medical Support presents to the Primary Care clinic with the following request: [ X ]Medication Renewal/Refill [ ]Consultation with Team RN [ ]Symptoms [ ]Other The [place] states they are: [ ]Waiting [ X ]Not Waiting No Walk in visit scheduled with PACT Nurse [ X ] At this encounter the [place]'s demographics were verified. [ X ] At this encounter the [place]'s Insurance information was verified. [ X ] At this encounter the below scheduled visits for the were discussed and appointment reminder card was offered. Future appointments: 02/20/2024 15:00 CWM/SO/PACT 2 [place] dropped off prescription from [facility] [place] to be re- written to clam picker in the [facility]. Prescription placed in provider's box for review. /es/ DESIREE QUINONES Signed: 11/02/2023 12:03 Receipt Acknowledged By: * AWAITING SIGNATURE * SYLVIA GARCIA 11/13/2023 ADDENDUM STATUS: COMPLETED [place] needs a consult for this, he has never been seen by Podiatry. Please place consult. Thank you! /med/ JEAN QUINONES Signed: 11/13/2023 16:20 Receipt Acknowledged By: * AWAITING SIGNATURE * ELISSA TRUJILLO * AWAITING SIGNATURE * SHANE MENA JODIE L [place]IR[place] Nov 02, 2023 11:57 AM PRIMARY CARE NOTE: LOCAL TITLE: WALK-IN NOTE PRIMARY CARE (T) STANDARD TITLE: PRIMARY CARE NOTE DATE OF NOTE: NOV 02, 2023@11:57 ENTRY DATE: NOV 02, 2023@11:57:49 AUTHOR: DESIREE SHAH EXP COSIGNER: URGENCY: STATUS: COMPLETED WALK-IN NOTE PRIMARY CARE (T) Has ADDENDA <====Click to Start Advanced Medical Support presents to the Primary Care clinic with the following request: [ X ]Medication Renewal/Refill [ ]Consultation with Team RN [ ]Symptoms [ ]Other The states they are: [ ]Waiting [ X ]Not Waiting No Walk in visit scheduled with PACT Nurse [ X ] At this encounter the 's demographics were verified. [ X ] At this encounter the 's Insurance information was verified. [ X ] At this encounter the below scheduled visits for the [place] were discussed and appointment reminder card was offered. Future appointments: 02/20/2024 15:00 CWM/SO/PACT 2 dropped off prescription from [facility] [place] to be re- written to clam picker in the [facility]. Prescription placed in provider's box for review. /med/ DESIREE QUIONNES Signed: 11/02/2023 12:03 Receipt Acknowledged By: 11/22/2023 08:53 /med/ SYLVIA GARCIA HEALTH ASSISTANT REAL ESTATE MANAGER 11/06/2023 ADDENDUM STATUS: COMPLETED Reviewed case with Dr. Osman who requires a consult for evaluation inorder to fill shoe script from [facility] [place] DX; M20.41 Hammertoe Foot Deformity. Next available, non emergency. /med/ SYLVIA GARCIA HEALTH ASSISTANT REAL ESTATE MANAGER Signed: 11/06/2023 11:30 Receipt Acknowledged By: 11/07/2023 12:49 /med/ ELISSA TRUJILLO NP NURSE PRACTITIONER 11/13/2023 16:21 /med/ JEAN QUINONES 11/13/2023 ADDENDUM STATUS: COMPLETED [place] needs a consult for this, he has never been seen by Podiatry. Please place consult. Thank you! /es/ JEAN QUINONES Signed: 11/13/2023 16:20 Receipt Acknowledged By: 11/21/2023 14:07 /es/ ELISSA TRUJILLO NP NURSE PRACTITIONER * AWAITING SIGNATURE * SHANE MENA,DESIREE LOVE
--- OUTSIDE RECORDS SUMMARY | 2024-05-23 08:20 | XMS_ITS | Encounter Summary ---
Author Name [place] Address [address] [place] [address] Care Team Providers Care Group Marketing Vp Name Role Phone ELISSA TRUJILLO Primary Care Provider [facility] Insurance Providers: All historical and current Section Date Range: From patient's date of to the date document was created. This section includes the names of all active insurance providers for the patient. Insurance Provider Type of Coverage Plan Name Start of Policy Coverage End of Policy Coverage Group Number Member ID Insurance Provider's Telephone Number Policy Dauhgerty's Name Patient's Relationship to Policy Daugherty AARP HEALTH PLAN MEDICARE SUPPLEMEN MARIEL Apr 27, 2012 [facility] [id number] ELIZABETH AMOS UL PATIENT AARP MED [facility] MEDICARE SUPPLEMEN MARIEL Apr 27, 2012 [facility] [id number] [phone] [place] PATIENT MEDICARE (WNR) MEDICARE (M) PART A 2011 PART A [id number] ELIZABETH AMOS UL PATIENT MEDICARE (WNR) MEDICARE (M) PART B 2011 PART B [id number] ELIZABETH AMOS UL PATIENT Selected Encounter This section includes the information on record at [place] for the Encounter. Date/Time Encounter Type Encounter Description Reason Pro vider Source Nov 22, 2023 03:29 PM Outpatient Encounter PODIATRY IHE Encounter Template Text not used by [place] Plan of Treatment: Future Appointments (+ 6 months) and Future Tests (+/- 45 days) The Plan of Treatment section includes future care activities for the patient from all [place] treatmentfacilities. This section includes future appointments and future orders which are active, pending or scheduled. Future Appointments This section includes appointments that were scheduled to occur 6 months from the date of the Encounter, up to a maximum of 20 appointments. The data comes from all [place] treatment facilities. Appointment Date/Time Appointment Type Appointme nt Facility Name Dec 19, 2023 02:00 PM AMBULATORY - MEDICINE [facility] Feb 15, 2024 09:00 AM AMBULATORY - MED[facility] Mar 06, 2024 03:00 PM [facility]UL[facility]ICINE [facility] Social History: Smoking Status (Most current) and Tobacco Use (All prior to encounter date) This section includes the most current, and the historical, smoking and tobacco- related health factors from the VA facility where the Encounter took place. Current Smoking Status This section includes the most current smoking, or tobacco-related health factor, from the [place] facility where the Encounter took place. Date/Time Current Smoking Status Comment Facil ity Jan 27, 2021 03:35 PM VA-TOBACCO NEVER USED [place] [facility] [place] [facility] Encounter Notes: All associated encounter notes This section contains the clinical notes associated to the Encounter. Date/Time Encounter Note(s) Provider Source Nov 22, 2023 03:29 PM PRIMARY CARE B[place]CHRA RS: LOCAL TITLE: PATIENT LETTER - SPECIALTY [facility] STANDARD TITLE: PRIMARY CARE LETTERS DATE OF NOTE: NOV 22, 2023@15:29 ENTRY DATE: NOV 22, 2023@15:30:01 AUTHOR: JEAN ALBARRAN COSIGNER: URGENCY: STATUS: COMPLETED DEPARTMENT OF [facility] Specialty Outpatient Clinic Telephone number: [phone] REUBEN AMOS [address] [place] [address], [phone] NOV 22, 2023 Dear , We would like to assist you in scheduling a Podiatry appointment at the [place]. We have been unable to reach you by phone. To schedule this appointment please call us at ext. [phone]. Our booking appointment hours are Sunday through Sunday from 8:00 am to 4:00 pm. Please leave a message if you receive voicemail and let us know a good time and telephone number where we can reach you. If we don't hear back from you within 14 days from the date of this letter we will discontinue the request. If you have already scheduled this appointment, please disregard this letter. Your health is important to us. Sincerely, [facility] [address] [facility] [address] [place] [address] [place] [address] [facility] [address] [facility] [address] [place] [address] [place] [address] ext. [phone] [facility] [address] [facility] [address] [place] [address] [place] [address] ext. [phone] [facility] [address] [place] [address] ext. [phone] Specialty Outpatient Clinic [address] [place] [address] JEAN ALBARRAN SOMERS
--- OUTSIDE RECORDS SUMMARY | 2024-05-23 08:21 | XMS_ITS | Encounter Summary ---
Author Name [place] Address [address] [place] [address] Care Team Providers Care Solution Manager Name Role Phone ELISSA TRUJILLO Primary Care [...] MEDICARE SUPPLEMEN MARIEL Apr 27, 2012 PL[facility] [id number] [phone] ELIZABETH AMOS UL PATIENT AARP MED [facility] MEDICARE SUPPLEMEN MARIEL Apr 27, 2012 [facility] [id number] ELIZABETH AMOS UL PATIENT MEDICARE (WNR) MEDICARE ([place]) PART A 2011 PART A [id number] ELIZABETH AMOS UL PATIENT MEDICARE (WNR) MEDICARE (M) PART B 2011 PART B [id number] ELIZABETH AMOS UL PATIENT Selected Encounter This section includes the information on record at [place] for the Encounter. Date/Time Encounter Type Encounter Description Reason Pro vider Source Nov 27, 2023 01:30 PM Outpatient Encounter PRIMARY CARE/MEDICINE E Encounter Template Text not used by [place] Plan of Treatment: Future Appointments (+ 6 months) and Future Tests (+/- 45 days) The Plan of Treatment section includes future care activities for the patient from all [place] treatmentfacilities. This section includes future appointments and future orders which are active, pending or scheduled. Future Appointments This section includes appointments that were scheduled to occur 6 months from the date of the Encounter, up to a maximum of 20 appointments. The data comes from all [place] treatment facilities. Appointment Date/Time Appointment Type Appointme nt Facility Name Dec 19, 2023 02:00 PM AMBULATORY - MEDICINE [facility] Feb 15, 2024 09:00 AM AMBULATORY - MEDICINE [place] [facility] [place] [place] [facility] Mar 06, 2024 03:00 PM AMBULATORY - MEDICINE [facility] Social History: Smoking Status (Most current) and Tobacco Use (All prior to encounter date) This section includes the most current, and the historical, smoking and tobacco- related health factors from the [place] facility where the Encounter took place. Current Smoking Status This section includes the most current smoking, or tobacco-related health factor, from the [place] facility where the Encounter took place. Date/Time Current Smoking Status Comment Padmini [place] Feb 14, 2023 01:30 PM [place]-TOBACCO NEVER USED [place] Tobacco Use History This section includes a history of the smoking, or tobacco-related health factors, that were collected on or before the date of the Encounter. The data comes from the [place] facility where the Encounter took place. Date/Time Smoking Status/Tobacco Use Comment [facility] Jan 27, 2022 02:00 PM VA-TOBACCO NEVER USED [place] Nov 08, 2017 10:02 AM [place]-TOBACCO NEVER USED [place] Nov 08, 2017 08:55 AM LIFETIME NON-TOBACCO USER [place] Nov 08, 2016 09:08 AM LIFETIME NON-TOBACCO USER [place] October 21, 2015 02:24 PM LIFETIME NON-TOBACCO USER [place] Sep 10, 2012 09:28 AM LIFETIME NON-TOBACCO USER [place]
--- OUTSIDE RECORDS SUMMARY | 2024-05-23 08:21 | XMS_ITS | Encounter Summary ---
Author Name [place] Address [address] [place] [address] Care Team Providers Care Engineering Intern Name Role Phone ELISSA TRUJILLO Primary Care [...] PLAN MEDICARE SUPPLEMEN MARIEL Apr 27, 2012 [facility] [id number] ELIZABETH AMOS UL PATIENT AARP MED [facility] MEDICARE SUPPLEMEN MARIEL Apr 27, 2012 [facility] [id number] ELIZABETH AMOS UL PATIENT MEDICARE (WNR) MEDICARE (M) PART A 2011 PART A [id number] ELIZABETH AMOS UL PATIENT MEDICARE (WNR) MEDICARE (M) PART B 2011 PART B [id number] ELIZABETH AMOS UL PATIENT Selected Encounter This section includes the information on record at [place] for the Encounter. Date/Time Encounter Type Encounter Description Reason Pro vider Source Jan 29, 2024 08:19 AM Outpatient Encounter PRIMARY CARE/MEDICINE IHE Encounter Template Text not used by [place] Plan of Treatment: Future Appointments (+ 6 months) and Future Tests (+/- 45 days) The Plan of Treatment section includes future care activities for the patient from all [place] [facility] This section includes future appointments and future orders which are active, pending or scheduled. Future Appointments This section includes appointments that were scheduled to occur 6 months from the date of the Encounter, up to a maximum of 20 appointments. The data comes from all [place] treatment facilities. Appointment Date/Time Appointment Type Appointme nt Facility Name Feb 15, 2024 09:00 AM [facility] Mar 06, 2024 03:00 PM AMBULATORY [facility] MEDICINE [facility] Jul 17, 2024 02:30 PM AMBULATORY - MEDICINE [facility] Social History: Smoking Status (Most current) and Tobacco Use (All prior to encounter date) This section includes the most current, and the historical, smoking and tobacco- related health factors from the [place] facility where the Encounter took place. Current Smoking Status This section includes the most current smoking, or tobacco-related health factor, from the [place] facility where the Encounter took place. Date/Time Current Smoking Status Comment Padmini willingham Jan 27, 2021 03:35 PM NE-TOBACCO NEVER USED [facility] Encounter Notes: All associated encounter notes This section contains the clinical notes associated to the Encounter. Date/Time Encounter Note(s) Provider Source Jan 29, 2024 08:19 AM PRIMARY CARE [facility] E MESSAGING: LOCAL TITLE: PRIMARY CARE SECURE MESSAGING STANDARD TITLE: PRIMARY CARE SECURE MESSAGING DATE OF NOTE: JAN 29, 2024@08:19 ENTRY DATE: JAN 29, 2024@08:19:11 AUTHOR: VENITA CAREY EXP COSIGNER: URGENCY: STATUS: COMPLETED ------Original Message -------- Sent: 01/25/2024 06:36 PM ET From: TOBIN AMOS To: Frantz TRUJILLO_PRIMARY CARE_SPOPC Subject: Medication:ROSUVASTATIN CA 10MG TAB I am all out of ROSUVASTATIN CA 10MG TAB and cannot order it. Please order the prescription or me Tobin Schafer /med/ VENITA QUINONES Signed: 01/29/2024 08:19 Receipt Acknowledged By: 01/30/2024 15:27 /es/ ELISSA TRUJILLO NP NURSE PRACTITIONER 01/29/2024 09:12 /es/ SHANE MENA, RN REGISTERED NURSE VENITA CAREY [facility]
--- OUTSIDE RECORDS SUMMARY | 2024-05-23 08:21 | XMS_ITS | Encounter Summary ---
Author Name [place] Address [address] [place] [address] Care Team Providers Care Pipe Coverer Helper Name Role Phone ELISSA TRUJILLO [facility] Insurance Providers: All historical and current [...] MEDICARE SUPPLEMEN MARIEL Apr 27, 2012 PL[facility] [id number] [phone] [place] PATIENT AAR MED [facility] MEDICARE SUPPLEMEN MARIEL Apr 27, 2012 [facility] [id number] [place] PATIENT MEDICARE (WNR) MEDICARE (M) PART A 2011 PART A [id number] [place] PATIENT MEDICARE (WNR) MEDICARE (M) PART B 2011 PART B [id number] [place] PATIENT Selected Encounter This section includes the information on record at [place] for the Encounter. 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 Date/Time Primary/Secondary Diagnosis Diagnosis Name Provider Source Jan 22, 2024 03:21 PM PRIMARY Type 2 diabetes w diabetic peripheral angiopath w/o gangrene ANABEL SWEET Jan 22, 2024 03:21 PM SECONDARY Localized edema ANABEL SWEET Plan of Treatment: Future Appointments (+ 6 months) and Future Tests (+/- 45 days) The Plan of Treatment section includes future care activities for the patient from all [place] treatmentfacilities. This section includes future appointments and future orders which are active, pending or scheduled. Future Appointments This section includes appointments that were scheduled to occur 6 months from the date of the Encounter, up to a maximum of 20 appointments. The data comes from all [place] treatment facilities. Appointment Date/Time Appointment Type Appointme nt Facility Name Feb 15, 2024 09:00 AM AMBULATORY - MEDICINE [facility] Mar 06, 2024 03:00 PM AMBULATORY - MEDICINE [facility] Social History: Smoking Status (Most current) and Tobacco Use (All prior to encounter date) This section includes the most current, and the historical, smoking and tobacco- related health factors from the [place] facility where the Encounter took place. Current Smoking Status This section includes the most current smoking, or tobacco-related health factor, from the [place] facility where the Encounter took place. Date/Time Current Smoking Status Comment Padmini willingham Feb 14, 2023 01:30 PM [place]-TOBACCO NEVER USED [place] [facility] Tobacco Use History This section includes a history of the smoking, or tobacco-related health factors, that were collected on or before the date of the Encounter. The data comes from the [place] facility where the Encounter took place. Date/Time Smoking Status/Tobacco Use Comment F acshaneka Jan 27, 2022 02:00 PM [place]-TOBACCO NEVER USED [facility] Nov 08, 2017 10:02 AM [place]-TOBACCO NEVER USED [facility] Nov 08, 2017 08:55 AM LIFETIME NON-TOBACCO USER [facility] Nov 08, 2016 09:08 AM LIFETIME NON-TOBACCO USER [facility] October 21, 2015 02:24 PM LIFETIME NON-TOBACCO USER [facility] Sep 10, 2012 09:28 AM LIFETIME NON-TOBACCO USER [facility] Encounter Notes: All associated encounter notes This section contains the clinical notes associated to the Encounter. Date/Time Encounter Note(s) Provider Source Jan 08, 2024 09:46 AM PODIATRY NOTE: LOCAL TITLE: PODIATRY NOTE STANDARD TITLE: PODIATRY NOTE DATE OF NOTE: JAN 08, 2024@09:46 ENTRY DATE: JAN 08, 2024@09:46:15 AUTHOR: MAYDA GARCIA EXP COSIGNER: URGENCY: STATUS: COMPLETED F:Called REUBEN Patterson JULIO CNAGA, PATIENT PHONE - re:Shoe fitting D:Pt was called and informed that their shoes and or orthotics have arrived at the [facility] [place] located at [address] [place] [address]. A/P: pt informed they may brick picker their shoes and or orthotics at their convenience any day, Sunday through Sundaybetween 8:30am and 3:30pm and Sunday 8:30am and 3:30pm. They do not need an appointment. But we do request that they call before arriving to make sure the Podiatry Health C D Reactor Operator is available on that day. No barriers; Patient understands and agrees to current plan. /med/ MAYDA GARCIA HEALTH DECK WORKER Signed: 01/08/2024 09:46 MAYDA GARCIA [facility] Jan 01, 2024 08:18 AM LETTERS: LOCAL TITLE: PATIENT LETTER (B) STANDARD TITLE: LETTERS DATE OF NOTE: JAN 01, 2024@08:18 ENTRY DATE: JAN 01, 2024@08:18:19 AUTHOR: MAYDA GARCIA EXP COSIGNER: URGENCY: STATUS: COMPLETED [facility] [place] [address] [phone] * REUBEN Patterson [address] [place], [place] [address] Date: JAN 01, 2024 Dear [place]: This is a reminder letter that your SHOES are ready for pick at the [facility] in [place] located at [address] [place] [address]. You may brick picker your shoes and or orthotics at your convenience any day, Sunday through Sunday between 8:30am and 3:30pm. You do not need an appointment. BUT WE DO REQUEST THAT YOU CALL BEFORE ARRIVING TO MAKE SURE THE PODIATRY HEALTH DECK WORKER IS AVAILABLE ON THAT DAY. Call [phone] for Mayda if you have any questions. We hope to see you soon, Sincerely, Office Staff for:ELISSA TRUJILLO Care Provider Upcoming Appointments: 03/06/2024 15:00 CWM/SO/PACT 1 RV MECHANIC MAYDA GARCIA [facility] Dec 19, 2023 08:22 AM PODIATRY CONSULT: LOCAL TITLE: CONSULT REPORT/PODIATRY STANDARD TITLE: PODIATRY CONSULT DATE OF NOTE: DEC 19, 2023@08:22 ENTRY DATE: DEC 19, 2023@08:22:35 AUTHOR: ANABEL SWEET COSIGNER: URGENCY: STATUS: COMPLETED NAME: REUBEN AMOS DATE: DEC 19, 2023 : Aug PCP: ELISSA TRUJILLO LAST SEEN: INITIAL CONSULT VISIT TODAY NOTE: HAS RECEIVED BOTH COVID VACCINE DOSES + 3 BOOSTERS AT [facility] HPI: Pt. is a 78 yo alert WDWN CAUC MALE who presents for initial podiatric examination with Dr. Sweet for treatment of a presenting complaint of a painful HAMMERTOE AND FLAT FEET CONDITION PER PCP. Patient has TYPE II DM & is at risk of injury with self or other non-professional care. Patient has been referred by: ELISSA TRUJILLO NP Location of symptoms are: PATIENTS ONLY CONCERN IS A NEW PAIR OF DM THERAPEUTIC SHOES AND HS REQUESTED APEX AND KNOWS THE STYLE # AND SIZE AND WE DO HAVE IT AVAILABLE TO ORDER. Onset of symptoms PLANTAR LEFT CALCANEUS OPEN WOUND WITH NO DRESSING AND IS BEING TREATED BY WOUND CARE IN [place] AND IS BEING SEEN FOR VASCULAR SURGEON AT [facility] AND HAS A MEDIA PRODUCER WELL : DR. JUAREZ AT [facility] FOR HIS NAILS AND CALLUS has been several months due to this being a recurrent condition that has been RESOLVING over the past few weeks.Duration of symptoms is daily with periods of exacerbation and remission. Description of symptoms is of NO PAIN DUE TO NEUROPATHY. Contributing factors are: shoes and iNEUROPATHY. Previous treatment: NOTED ABOVE PMH: Active problems - Computerized Problem List is the source for the followin. Hyperlipidemia (SCT 69572828) 2. Psoriasis 3. Pressure injury of buttock 4. Pain in right hip joint 5. At risk of pressure ulcer (SNOMED CT 189362842) 6. Iron deficiency anemia 7. OA - Osteoarthritis of hip 8. Polyp of colon 9. Osteoarthritis 10. DM - Diabetes mellitus (SNOMED CT 56315068) 11. HTN - Hypertension (SNOMED CT 89220920) 12. Postsurgical Status of Cataract Extraction *NOTE: REVIEWED ABOVE, NOTING NON-CONTRIBUTORY TO THE CC OTHER THAN THE PRESENCE OF TYPE II DM & OA Family History: Non-contributory Social History: N/A Current medications: Active Outpatient Medications (including Supplies): *NOTE: DENIES ANY RECENT CHANGES IN MEDS UPON QUESTIONING TODAY-SEE RECONCILIATION PERFOMED THIS DATE BELOW TOBACCO USE =none Active Outpatient Medications Status = 1) DICLOFENAC NA 1% TOP GEL APPLY 2 GRAMS TOPICALLY FOUR ACTIVE TIMES DAILY NEEDED FOR OSTEOARTHRITIS - USE DOSING CARD PROVIDED IN BOX 2) HYDROCHLOROTHIAZIDE 25MG TAB TAKE ONE TABLET BY MOUTH ACTIVE DAILY TO PREVENT FLUID/CONTROL BLOOD PRESSURE 3) LIDOCAINE 5% PATCH APPLY 1 PATCH TOPICALLY ONCE DAILY ACTIVE NEEDED (LEAVE PATCH ON FOR 12 HOURS, THEN REMOVE PATCH) 4) LOSARTAN 100MG TAB TAKE ONE TABLET BY MOUTH ONCE ACTIVE DAILY FOR BLOOD PRESSURE/HEART 5) METFORMIN HCL 1000MG TAB TAKE ONE TABLET BY MOUTH ACTIVE TWICE DAILY FOR DIABETES 6) METOPROLOL TARTRATE 50MG TAB TAKE ONE TABLET BY MOUTH ACTIVE TWICE DAILY FOR BLOOD PRESSURE/HEART 7) ROSUVASTATIN CA 10MG TAB TAKE ONE-HALF TABLET BY ACTIVE MOUTH TWO TIMES A WEEK FOR CHOLESTEROL 8) SEMAGLUTIDE 1MG/0.75ML INJ PEN 3ML INJECT 1MG ACTIVE SUBCUTANEOUSLY ONCE A WEEK 9) SPIRONOLACTONE 25MG TAB TAKE TWO TABLETS BY MOUTH ACTIVE DAILY [REPLACES EPLERENONE] 10) TACROLIMUS 0.1% TOP OINT APPLY THIN LAYER TOPICALLY HOLD TWICE DAILY FOR ATOPIC DERMATITIS Active Non-VA Medications Status = 1) Non-VA ASCORBIC ACID 500MG TAB 500MG BY MOUTH TWICE ACTIVE DAILY 2) Non-VA ASPIRIN 81MG EC TAB 81MG BY MOUTH DAILY ACTIVE 3) Non-VA CICLOPIROX OLAMINE 0.77% CREAM,TOP TOPICALLY ACTIVE TWICE DAILY 4) Non-VA CYANOCOBALAMIN 1000MCG TAB 1000MCG BY MOUTH ACTIVE DAILY 5) Non-VA FLUOCINONIDE 0.05% CREAM,TOP TOPICALLY TWICE ACTIVE DAILY 6) Non-VA LORATADINE 10MG TAB 10MG BY MOUTH DAILY ACTIVE 7) Non-VA MAGNESIUM OXIDE TAB BY MOUTH ACTIVE 8) Non-VA MULTIVITAMIN/MINERALS CAP/TAB 1 TABLET BY ACTIVE MOUTH DAILY 9) Non-VA OTHER CAP/TAB 1 APPLICATION ONCE DAILY ACTIVE NEEDED 10) Non-VA SENNOSIDE 8.6MG (SENNA) TAB BY MOUTH DAILY ACTIVE 11) Non-VA VITAMIN D3 (CHOLECALCIFEROL) TAB BY MOUTH ACTIVE 21 Total Medications Allergies:Patient has answered NKA Previous Surgery/Hospitalization: N/A TO THE CC *NOTE: A1C= 5.9 *LAST TAKEN: 07/2023) FBS= 131 RISK =2 HEIGHT:213 lb [96.62 kg] (08/15/2023 14:02) WEIGHT:73 in [185.4 cm] (08/15/2023 14:02) REVIEW OF SYSTEMS: DEFERRED BEING NON-CONTRIBUTORY TO THE CC & I HAVE REVIEWED THE PCP NOTES & PMH WELL. O: DERMATOLOGICAL: Exam reveals skin color TO BE DISCOLORED & text IS DRY SCALY & TEMP is diminished warm to cool proximal to distal. There is absence of hair noted. Nails are thickened yellow-brown discolored and displaying flakiness, crumbling, sub-ungual debris and rubor in the affected nail grooves. The affected nails are 1-2-3-4-5 bilat. There are no superficial hyperkeratotic lesions noted at this time located at the following sites:MEDIAL CALCANEUS BILATERAL. There are no rashes, indurations or nodules noted BUT THERE IS A 1CM OPEN LESION-ULCER PLANTAR LEFT CALCANEUS WITH NO DREESSING AT THIS TIME AND HE IS BEING TTREATED AT WOUND CARE IN [place] AND DID NOT WISH ANY CARE TO BE RENDERED AND I APPLIED BACITRACIN AND BANDAID IN AN ATTEMPT TO KEEP CLEAN WHILE GOING HOME. PATIENT PRESENTED BEIN GUNKEMPT, DISSHEVELED AND IN NEED OF A SHOWER. VASCULAR: Exam reveals DP & PT pulses to be absent non-palpable bilateral. CFT is <3 sec x 10. There are superficial varices noted BILATERAL and there is +3 edema noted BILAT. MUSCULOSKELETAL: Exam reveals muscle strength and tone to be equal & symmetrical bilaterally & WNL for an individual of this age and present physical-medical condition. There is pain free ROM at all joints distal to and including the ankle. *THERE ARE NO APPARENT BONY ABNORMALITIES NOTED AT THIS TIME. NEUROLOGICAL: Exam reveals S/D, vibratory-ABSENT, light touch & proprioception sensations to be equal & symmetrical bilaterally & diminished for an individual of this age and present physical-medical status. Protective sensation utilizing a [place] lOg monofilament is 0/10 bilateral. PATIENT RELATES HISTORY OF NEUROPATHY AND NO MEDICATIONS AT THIS TIME. BIOMECHANICAL: Exam is deferred at this time as BEING non-contributory to the cc . A: Clinical Impression is A REQUEST FOR SHOES ONLY AND WISHED TO HAVE ANOTHER PAIR OF APEX AND SAMEW STYLE THAT HE CURRENTLY HAS IN the presence of DM-PVD. P: Treatment consists of THE APPLICATION OF BACITRACIN AND BANDAID PLANTAR LEFT CALCANEUS AND HE DID NOT WISH TO HAVE ANY OTHER CARE HE HAS A MEDIA PRODUCER IN [place] [facility] WHO HE SEES JENNIFER 2-3 MONTHS AND IS PLEASED WITH CARE AND DID NOT WISH FOR ME TO DO ANYTHING OTHER THAN ORDER SHOES. All care rendered without complications & the patient is progressing MWELL CAN BE EXPECTED after podiatric care this date and will be CONTACTED WHEN HIS SHOES ARRIVE. HE DID NOT WISH TO BE SEEN FOR ANY OTHER CARE AT THIS TIME. I DISCUSSED THE FINDINGS & PLAN WITH PATIENT (UNCHANGED SINCE PREVIOUS VISIT) & PATIENT AGREES AND UNDERSTANDS PLAN Medication Reconciliation: PERFORMED TODAY - SEE BELOW. Outpatient: Has the patient been taking medications as documented in the EMLR? YES: The patient has been taking medications as documented in the EMLR. Essential Medication List for Review used to complete this medication reconciliation. INCLUDED IN THIS LIST: Alphabetical list of active outpatient prescriptions dispensed from this [place] (local) and dispensed from another [place] or [facility] facility (remote) as well as inpatient orders [...] whether with a VA or non-VA provider. /med/ ANABEL SWEET DPM MEDIA PRODUCER Signed: 12/19/2023 16:23 ANABEL SWEETFIELD
--- OUTSIDE RECORDS SUMMARY | 2024-05-23 08:21 | XMS_ITS ---
Author Name [facility] [place] Address [address] [place] [address] Care Team Providers Care Hide Or Skin Buffer Name Role Phone ELISSA TRUJILLO Primary [facility] Insurance Providers: All historical and [...] PLAN MEDICARE SUPPLEMEN MARIEL Apr 27, 2012 [facility] [id number] [phone] ELIZABETH AMOS UL PATIENT AAR MED [facility] MEDICARE SUPPLEMEN MARIEL Apr 27, 2012 [facility] [id number] [place] UL PATIENT MEDICARE (WNR) MEDICARE (M) PART A 2011 PART A [id number] ELIZABETH AMOS UL PATIENT MEDICARE (WNR) MEDICARE (M) PART B 2011 PART B [id number] ELIZABETH AMOS UL PATIENT Selected Encounter This section includes the information on record at [place] for the Encounter. Date/Time Encounter Type Encounter Description Reason Pro vider Source Jul 19, 2023 12:00 AM Outpatient Encounter EVENT (HISTORICAL) IHE Encounter Template Text not used by [place] Plan of Treatment: Future Appointments (+ 6 months) and Future Tests (+/- 45 days) The Plan of Treatment section includes future care activities for the patient [facility] [place] [facility] This section includes future appointments and future orders which are active, pending or scheduled. Future Appointments This section includes appointments that were scheduled to occur 6 months from the date of the Encounter, up to a maximum of 20 appointments. The data comes from all [place] treatment facilities. Appointment Date/Time Appointment Type Appointme nt Facility Name Aug 15, 2023 02:00 PM AMBULATORY - MEDICINE [facility] Dec 19, 2023 02:00 PM AMBULATORY - MEDICINE [facility] Lab Results: +/- 30 days of the encounter This section includes the Chemistry and Hematology Lab Results on record with [place] for the patient. Radiology Reports and Pathology Reports are provided separately, in subsequent sections. Lab Results This section contains the Chemistry/Hematology Results that were resulted 30 days before or 30 daysafter the date of the Encounter. Date/Time Source Result Type Result - Unit Interpretation Reference Range Comment Aug 07, 2023 01:17 PM [facility] LIPID PANEL FASTING Specimen Type: SERUM No comment entered. Ordering Provider: KEO ANAYA Report Released Date/Time: Jul 23, 2023 05:25 PM Reporting Lab: [address] [address] Performing Lab: [address] [address] CHOLESTEROL 140 mg/dL TRIGLYCERIDE 141 mg/dL 0-150 LDL calculated 65 mg/dL 0-129 CHOL/HDL 3.0 HDL CHOLESTEROL 47 mg/dL 40-60 Aug 07, 2023 01:17 PM [facility] BASIC METABOLIC PANEL (fasting) Specime n Type: SERUM No comment entered. Ordering Provider: KEO ANAYA Report Released Date/Time: Jul 23, 2023 05:25 PM Reporting Lab: [address] [address] Performing Lab: [address] [address] UREA NITROGEN 31 mg/dL H 7-25 GLUCOSE 124 mg/dL H 65-100 SODIUM 137 mmol/L 135-145 POTASSIUM 4.2 mmol/L 3.5-5.0 CHLORIDE 100 mmol/L 100-110 CO2 24 meq/L 20-30 CREATININE, Serum 1.33 mg/dL 0.50-1.40 eGFR(CKD-EPI 2020) 55 mL/min L >60 Aug 07, 2023 01:17 PM [facility] LIVER FUNCTION Specimen Type: SERUM No comment entered. Ordering Provider: KEO ANAYA Report Released Date/Time: Jul 23, 2023 05:25 PM Reporting Lab: [address] [address] Performing Lab: [address] [address] PROTEIN,TOTAL 7.0 g/dL 6.0-8.3 ALBUMIN 3.6 g/dL 3.5-5.0 ALKALINE PHOSPHATASE 90 U/L 40-150 AST 25 U/L 5-34 ALT 18 U/L BILIRUBIN, TOTAL 0.4 mg/dL 0.2-1.2 Aug 07, 2023 01:17 PM [facility] HEMOGLOBIN A1C PANEL Specimen Type: BLOOD Comment: [...] Jul 23, 2023 05:25 PM Reporting Lab: [address] [address] Performing Lab: [address] [address] HEMOGLOBIN A1C 5.9 H 4.0-5.6 Aug 07, 2023 01:17 PM [facility] CBC AND DIFF (AUTO) Specimen Type: BLOOD No comment entered. Ordering Provider: KEO ANAYA Report Released Date/Time: Jul 23, 2023 05:25 PM Reporting Lab: [address] [address] Performing Lab: [address] [address] WBC 6.41 10*3/uL 4.50-11.00 RBC 4.43 10*6/uL 4.23-5.66 HGB 12.8 g/dL 12.8-17 HCT 38.9 L 39.2-50.4 MCV 87.8 fL 82-99 MCHC 32.9 g/dL 30.8-35.1 PLT 270 10*3/uL 140-360 RDW-CV 13.4 12.0-16.0 Gila, Abs 0.77 10*3/uL 0.30-1.10 MCH 28.9 pg 26.2-32.6 Neut % 63.0 43.7-75.8 Lymph % 19.8 14.0-42.3 Gila % 12.0 5.1-13.7 Eos % 3.1 0.4-6.8 [...] and tobacco- related health factors from the [place] facility where the Encounter took place. Current Smoking Status This section includes the most current smoking, or tobacco-related health factor, from the [place] facility where the Encounter took place. Date/Time Current Smoking Status Comment Padmini willingham Jan 27, 2021 03:35 PM [place]-TOBACCO NEVER USED [facility] [place] [facility] Encounter Notes: All associated encounter notes This section contains the clinical notes associated to the Encounter. Date/Time Encounter Note(s) Provider Source Jul 19, 2023 12:00 AM NONVA DIAGNOSTIC Laurie MASON REPORT: LOCAL TITLE: NON-VA DIAGNOSTICS STANDARD TITLE: NONVA DIAGNOSTIC STUDY REPORT DATE OF NOTE: JUL 19, 2023 ENTRY DATE: DEC 11, 2023@08:31:18 AUTHOR: CHING CLARKE EXP COSIGNER: URGENCY: STATUS: COMPLETED VistA Imaging - Scanned Document SCANNED DOCUMENT SIGNATURE NOT REQUIRED Electronically Filed: 12/11/2023 by: CHING CLARKE TWISTING FRAME OPERATOR CHING CLARKE [facility]
--- OUTSIDE RECORDS SUMMARY | 2024-05-23 08:21 | XMS_ITS | Encounter Summary ---
Author Name [facility] [place] Organization [facility] [place] Address [address] [place] [address] Care Team Providers Care Die Casting Machine Operator Name Role Phone ELISSA TRUJILLO Primary [...] PLAN MEDICARE SUPPLEMEN MARIEL Apr 27, 2012 [facility] [id number] [phone] ELIZABETH AMOS UL PATIENT AARP MED [facility] MEDICARE SUPPLEMEN MARIEL Apr 27, 2012 [facility] [id number] ELIZABETH AMOS UL PATIENT MEDICARE (WNR) MEDICARE (M) PART A 2011 PART A [id number] ELIZABETH AMOS UL PATIENT MEDICARE (WNR) MEDICARE (M) PART B 2011 PART B [id number] ELIZABETH AMOS UL PATIENT Selected Encounter This section includes the information on record at [place] for the Encounter. Date/Time Encounter Type Encounter Description Reason Pro vider Source Nov 23, 2023 01:33 PM Outpatient Encounter PRIMARY CARE/MEDICINE IHE Encounter Template Text not used by [place] Plan of Treatment: Future Appointments (+ 6 months) and Future Tests (+/- 45 days) The Plan of Treatment section includes future care activities for the patient from all [place] treatmentfacilities. This section includes future appointments and [...] 19, 2023 02:00 PM [facility] Feb 15, 2024 09:00 AM AM[facility] - MEDICINE [facility] [place] [facility] Mar 06, 2024 03:00 PM AMBULATORY - MEDICINE [facility] Social History: Smoking Status (Most current) [...] PM VA-TOBACCO NEVER USED [place] [facility] [place] [facility] Encounter Notes: All associated encounter notes This section contains the clinical notes associated to the Encounter. Date/Time Encounter Note(s) Provider Source Nov 25, 2023 11:15 AM ADDENDUM: LOCAL TITLE: Addendum STANDARD TITLE: ADDENDUM DATE OF NOTE: NOV 25, 2023@11:15:36 ENTRY DATE: NOV 25, 2023@11:15:37 AUTHOR: ELISSA TRUJILLO EXP COSIGNER: URGENCY: STATUS: COMPLETED Given limited ability to attend PCP clinic within available hours, please reassign to [facility] PACT 9 and establish an appointment within the next 30-45 days. Thank you. /med/ ELISSA TRUJILLO NP NURSE PRACTITIONER Signed: 11/25/2023 11:16 Receipt Acknowledged By: 11/26/2023 09:54 /med/ CLAUDIA GASTELUM ADVANCE RAG WASHER 11/26/2023 08:52 /med/ DELL ORTEGA AMSA ====== --- Original Document --- 11/23/23 PRIMARY CARE SECURE MESSAGING: ------Original Message ------- Sent: 11/23/2023 11:42 AM ET From: TOBIN AMOS To: Raúl TRUJILLOPRIMARY CARE_SPOPC Subject: Appointment:sours I would like to make an appointment with you for any Sun afternoon. You pick the date and time. Tobin berry/ CLAUDIA GASTELUM ADVANCE RAG WASHER Signed: 11/23/2023 14:33 Receipt Acknowledged By: 11/25/2023 11:14 /med/ ELISSA TRUJILLO NP NURSE PRACTITIONER 11/26/2023 ADDENDUM STATUS: COMPLETED Electronics Assembler scheduled appt w/[facility] Pact 9 provider on 11/28/23 @ 03:00 pm. /es/ DELL QUINONES Signed: 11/26/2023 08:52 ELISSA TRUJILLO [place] [facility] [place] [facility] Nov 23, 2023 01:33 PM PRIMARY CARE SECUR E MESSAGING: LOCAL TITLE: PRIMARY CARE SECURE MESSAGING STANDARD TITLE: PRIMARY CARE SECURE MESSAGING DATE OF NOTE: NOV 23, 2023@13:33 ENTRY DATE: NOV 23, 2023@14:33:34 AUTHOR: CLAUDIA GASTELUM EXP COSIGNER: URGENCY: STATUS: COMPLETED PRIMARY CARE SECURE MESSAGING Has ADDENDA ------Original Message ------- Sent: 11/23/2023 11:42 AM ET From: TOBIN AMOS To: Raúl TRUJILLOPRIMARY CARE_SPOPC Subject: Appointment:sours I would like to make an appointment with you for any Sun afternoon. You pick the date and time. oTbin berry/ CLAUDIA GASTELUM ADVANCE RAG WASHER Signed: 11/23/2023 14:33 Receipt Acknowledged By: 11/25/2023 11:14 /med/ ELISSA TRUJILLO NP NURSE PRACTITIONER 11/25/2023 ADDENDUM STATUS: COMPLETED Given limited ability to attend PCP clinic within available hours, please reassign to [facility] PACT 9 and establish an appointment within the next 30-45 days. Thank you. /med/ ELISSA TRUJILLO NP NURSE PRACTITIONER Signed: 11/25/2023 11:16 Receipt Acknowledged By: * AWAITING SIGNATURE * CLAUDIA GASTELUM 11/26/2023 08:52 /jeromy QUINONES 11/26/2023 ADDENDUM STATUS: COMPLETED Electronics Assembler scheduled appt w/[facility] 9 provider on 11/28/23 @ 03:00 pm. /med/ DELL QUINONES Signed: 11/26/2023 08:52 CLAUDIA GASTELUM [facility]
--- OUTSIDE RECORDS SUMMARY | 2024-05-23 08:22 | XMS_ITS | Encounter Summary ---
Author Name [facility] [place] Address [address] [place] [address] Care Team Providers Care Trimmer Loader Name Role Phone ELISSA TRUJILLO Primary Care Provider [facility] Insurance Providers: All historical and current [...] MEDICARE SUPPLEMEN MARIEL Apr 27, 2012 PLAN [id number] [phone] [place] PATIENT AAR MED [facility] MEDICARE SUPPLEMEN MARIEL Apr 27, 2012 [facility] [id number] [place] PATIENT MEDICARE (WNR) MEDICARE (M) PART A 2011 PART A [id number] [place] PATIENT MEDICARE (WNR) MEDICARE (M) PART B 2011 PART B [id number] [place] PAT[place] Selected Encounter This section includes the information on record at [place] for the Encounter. Date/Time Encounter Type Encounter Description Reason Provider Source Mar 06, 2024 03:00 PM OFFICE O/P EST HI 40 MIN PRIMARY CARE/MEDICINE ICD-10-CM E11.9 Type 2 diabetes mellitus without complications ELISSA TRUJILLO [facility] Encounter Template Text not used by [facility] Assessments - Encounter Diagnoses This section includes the primary and secondary diagnoses documented for the Encounter. Date/Time Primary/Secondary Diagnosis Diagnosis Name Provider Source Mar 31, 2024 02:14 PM PRIMARY Type 2 diabetes mellitus without complications TRUJILLO,GIANFRANCO IVAN Mar 31, 2024 02:14 PM SECONDARY Essential (primary) hypertension TRUJILLO,ELISSA Patterson [facility] Mar 31, 2024 02:14 PM SECONDARY Hyperlipidemia, unspecified TRUJILLO,ELISSA Patterson [facility] Mar 31, 2024 02:14 PM SECONDARY Iron deficiency anemia, unspecified TRUJILLO,ELISSA Patterson [facility] Mar 31, 2024 02:14 PM SECONDARY Pain in right hip ELISSA TRUJILLO [facility] Mar 31, 2024 02:14 PM SECONDARY Pressure ulcer of unspecified buttock, unspecified stage RONNIEELISSA Patterson [facility] Mar 31, 2024 02:14 PM SECONDARY Psoriasis, unspecified ELISSA TRUJILLO Plan of Treatment: Future Appointments (+ 6 months) and Future Tests (+/- 45 days) The Plan of Treatment section includes future care activities for the patient from all [place] treatmentfacilities. This section includes future appointments and future orders which are active, pending or scheduled. Future Appointments This section includes appointments that were scheduled to occur 6 months from the date of the Encounter, up to a maximum of 20 appointments. The data comes from all [place] treatment facilities. Appointment Date/Time Appointment Type Appointme nt Facility Name Jul 17, 2024 02:30 PM AMBULATORY - MEDICINE [facility] Lab Results: +/- 30 days of the encounter This section includes the Chemistry and Hematology Lab Results on record with [place] for the patient. Radiology Reports and Pathology Reports are provided separately, in subsequent sections. Lab Results This section contains the Chemistry/Hematology Results that were resulted 30 days before or 30 daysafter the date of the Encounter. Date/Time Source Result Type Result - Unit Interpretation Reference Range Comment Feb 29, 2024 11:58 AM [facility] HEMOGLOBIN A1C PANEL Specimen Type: BLOOD Comment: Values obtained from A1C measurements can vary. For atypical A1C assays, a reported value of 7.0 could actually be between 6.72 and 7.28 if measured by a reference method. A reported value of 9.0 could actually be between 8.73 and 9.27. Ref: http://www.ngs p.org/CAPdata. asp Ordering Provider: KEO ANAYA Report Released Date/Time: Aug 15, 2023 02:27 PM Reporting Lab: [address] [address] Performing Lab: [address] [address] HEMOGLOBIN A1C 5.9 H 4.0-5.6 Feb 29, 2024 11:58 AM [facility] MICROALBUMIN CREATININE RATIO PANEL Spe cimen Type: URINE No comment entered. Ordering Provider: KEO ANAYA Report Released Date/Time: Aug 15, 2023 02:27 PM Reporting Lab: [address] [address] Performing Lab: [address] [address] MICROALBUMIN/C REATININE RATIO 10.2 mg/g 0-29.9 MICROALBUMIN,Q UANTITATIVE 1.7 mg/dL RR UNAVAIL CREATININE URINE 166.35 mg/dL Vital Signs: All taken on the encounter date This section contains inpatient and outpatient Vital Signs collected on the date of the Encounter. Date/Time Temperature Pulse Blood Pressure Respiratory Rate SP02 Pain Height Weight Body Mass Index Source Mar 06, 2024 03:09 PM 97.6 66 128/[address] [facility] Social History: Smoking Status (Most current) and Tobacco Use (All prior to encounter date) This section includes the most current, and the historical, smoking and tobacco- related health factors from the [place] facility where the Encounter took place. Current Smoking Status This section includes the most current smoking, or tobacco-related health factor, from the [place] facility where the Encounter took place. Date/Time Current Smoking Status Comment Padmini willingham Feb 14, 2023 01:30 PM [place]-TOBACCO NEVER USED [facility] Tobacco Use History This section includes a history of the smoking, or tobacco-related health factors, that were collected on or before the date of the Encounter. The data comes from the [place] facility where the Encounter took place. Date/Time Smoking Status/Tobacco Use Comment Mary agudelo Jan 27, 2022 02:00 PM VA-TOBACCO NEVER USED [facility] Nov 08, 2017 10:02 AM VA-TOBACCO NEVER USED [facility] Nov 08, 2017 08:55 AM LIFETIME NON-TOBACCO USER [facility] Nov 08, 2016 09:08 AM LIFETIME NON-TOBACCO USER [facility] October 21, 2015 02:24 PM LIFETIME NON-TOBACCO USER [facility] Sep 10, 2012 09:28 AM LIFETIME NON-TOBACCO USER [facility] Encounter Notes: All associated encounter notes This section contains the clinical notes associated to the Encounter. Date/Time Encounter Note(s) Provider Source Mar 06, 2024 03:54 PM PRIMARY CARE NURSE PRACTITIONER OUTPATIENT NOTE: LOCAL TITLE: NURSE PRACTITIONER OUTPATIENT NOTE STANDARD TITLE: PRIMARY CARE NURSE PRACTITIONER OUTPATIENT NOTE DATE OF NOTE: MAR 06, 2024@15:54 ENTRY DATE: MAR 06, 2024@15:55 AUTHOR: ELISSA TRUJILLO COSIGNER: URGENCY: STATUS: COMPLETED PRIMARY CARE VISIT REUBEN Patterson DANDRE, is a 78 yo WHITE MALE [place] who [place] the [place] [facility]. 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 He was last seen here by Dr. Anaya in July. He is comanaged with a community PCP. He has continued to follow with wound care at [facility]. He had a right total hip replacement scheduled in July that was postponed due to the pressure wounds. It has been rescheduled to early 2024 contingent on status of his pressure ulcers. No recent illnesses or ED UC visits. No falls. Recent labs were reviewed with the [place]. All medications were reconciled during this visit. HEALTHCARE PROVIDERS: Community PCP: Dr. Gray Derm: [facility] Wound: [facility]. Social Hx: He is and lives with his . He has never smoked. He drinks alcohol rarely. No MJ or illicits. 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 He previously exercised thrice weekly but this has decreased considerably due to pain in his right hip. He does continue chair exercises as tolerated. Family history is notable for mother, brother, and maternal nephew with diabetes. HISTORY: PERIOD OF SERVICE - [employer] FROM JUL 1965 TO JUN 1969 COMBAT SERVICE INDICATED: No MEDICAL HISTORY Active Problem Hyperlipidemia (SCT 44145229) E78.5 08/15/2023 KEO ANAYA Psoriasis L40.9 08/15/2023 KEO ANAYA Pressure injury of buttock L89.309 08/15/2023 KEO ANAYA Pain in right hip joint M25.551 08/15/2023 KEO ANAYA At risk of pressure ulcer (SNOMED C 05/04/2022 MARY JO ACEVEDO Iron deficiency anemia D50.9 05/13/2019 GLORY SANTAMARIA OA - Osteoarthritis of hip M16.9, O 04/02/2017 GLORY SANTAMARIA Polyp of colon Z86.010 2020 GLORY SANTAMARIA Osteoarthritis M13.0 05/04/2022 MARY JO ACEVEDO DM - Diabetes mellitus (SNOMED CT 7 11/08/2017 GLORY SANTAMARIA HTN - Hypertension ([place] [address] 01/27/2022 VANESSA ELLIS Postsurgical Status of Cataract Ext 09/10/2012 LIA ABRAHAM VITAL SIGNS: Temperature 97.6 F [36.4 C] (03/06/2024 15:09) Blood Pressure 128/74 (03/06/2024 15:09) Pulse 66 (03/06/2024 15:09) Respiration 20 (08/15/2023 14:02) Pain 4 (08/15/2023 14:02) BMI BMI: 28.0 Weight 212 lb [96.16 kg] (03/06/2024 15:09) Pulse Oximetry 98% (03/06/2024 15:09) ASSISTIVE DEVICES: Cane REVIEW OF SYSTEMS: CONSTITUTIONAL: No fevers, chills, weight loss/gain ENT: No sore throat, sneezing, congestion, rhinorrhea, anosmia, or ageusia. CARDIOVASCULAR: No chest pain, palpitations, or increased pedal edema RESPIRATORY: No SOB, cough, sputum, wheeze. GASTROINTESTINAL: Denies abd pain, N/V/D. No melena or hematochezia. No tenesmus or constipation. GENITOURINARY: No burning micturition. No urinary frequency or urgency. No nocturia. MUSCULOSKELETAL: No myalgias or arthralgias. PSYCHIATRIC: No new anxiety or depression. No sleep disturbance. NEUROLOGIC: No headaches, dizziness, numbness or tingling in the extremities, or unilateral weakness. EXAMINATION General: Older in no obvious distress. Mental Status: Alert and oriented x4. Head: Normocephalic. Eyes: PERRLA. EOMI. Anicteric sclerae. ENT: Moist oral mucosa. Posterior pharynx unremarkable Neck: Supple. No JVD. No LAD. No bruit appreciated. Lungs: CTA. Normal chest excursion. Eupneic respirations. CV: Heart tones S1, S2. RRR. No M/G/R. No peripheral edema GI: Abdomen is soft and nontender. No HSM or mass. : No CVA tenderness. Ext: No cyanosis or clubbing. No gross deformities. Neuro: CN II through XII grossly intact. Normal speech. Antalgic gait with a cane. Integument: Buttock pressure ulcers shallow with good evidence of healing. No sign of infection. Skin otherwise warm and very dry. Poor turgor. Psych: Normal mood and affect. Normal judgment. ALLERGIES: ========= Patient has answered NKA >> HEALTH MAINTENANCE PREVENTIVE MEDICINE GOALS Advance Directive Screen AD Jan 27 Follow-Up Pos PTSD/Depression DUE NOW Medication Reconciliation DUE NOW (Optional) Whole Health Documentation DUE NOW ASSESSMENT/PLAN: Active problems - Computerized Problem List is the source for the following: Hyperlipidemia ([facility] 16312371): Lipid panel WNL as are LFTs. Continue rosuvastatin. Psoriasis: Follows with [facility]. Maintained on tacrolimus ointment. Pressure injury of buttock: As noted, he is followed closely by [facility] wound clinic. Wounds without evidence of infection. Continue tacrolimus. Pain in right hip joint: Planned right THR early next year. Surgery is contingent on more healing of buttock wounds. Iron deficiency anemia: H/H largely normal in July. Recheck prior to next visit. Of note, he is not maintained on an iron supplement at this time. DM - Diabetes mellitus (SNOMED CT 35406698): Stable with HbA1c 5.9%. Follows a diabetic diet closely. Continue metformin 1000 mg twice daily and semaglutide. HTN - Hypertension (SNOMED CT 45480659): Blood pressure within target today at 128/74. He is maintained on several agents including metoprolol tartrate, losartan, HCTZ, and spironolactone. 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 All medications were reconciled during this visit. No barriers; Patient understands and agrees to current treatment plan. If pt has any questions, concerns, or changes in current health status he/she will call or come in to the [facility]. Medication Reconciliation: Outpatient: Has the patient been taking medications as documented in the EMLR? YES: The patient has been taking medications as documented in the EMLR. Essential Medication List for Review used to complete this medication reconciliation. INCLUDED IN THIS LIST: Alphabetical list of active outpatient prescriptions dispensed from this [facility] (local) and dispensed from another [place] or [place] facility (remote) as well as [...] with a VA or non-VA provider. /med/ ELISSA TRUJILLO NP NURSE PRACTITIONER Signed: 03/23/2024 11:25 ELISSA TRUJILLO
--- OUTSIDE RECORDS SUMMARY | 2024-05-23 08:22 | XMS_ITS | Encounter Summary ---
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 Name Role Phone ELISSA TRUJILLO Primary Care Provider [facility] Insurance Providers: All historical and [...] PLAN MEDICARE SUPPLEMEN MARIEL Apr 27, 2012 [facility] [id number] ELIZABETH AMOS UL PATIENT AARP MED [facility] MEDICARE SUPPLEMEN MARIEL Apr 27, 2012 [facility] [id number] [phone] [place] UL PATIENT MEDICARE (WNR) MEDICARE (M) PART A 2011 PART A [id number] ELIZABETH AMOS UL PATIENT MEDICARE (WNR) MEDICARE (M) PART B 2011 PART B [id number] ELIZABETH AMOS UL PATIENT Selected Encounter This section includes the information on record at [place] for the Encounter. Date/Time Encounter Type Encounter Description Reason Pro vider Source Nov 16, 2023 12:00 AM Outpatient Encounter EVENT (HISTORICAL) IHE Encounter Template Text not used by [place] Plan of Treatment: Future Appointments (+ 6 months) and Future Tests (+/- 45 days) The Plan of Treatment section includes future care activities for the patient from all [place] treatmentfacilities. This section includes future appointments and future orders which are active, pending or scheduled. Future Appointments This section includes appointments that were scheduled to occur 6 months from the date of the Encounter, up to a maximum of 20 appointments. The data comes from all [place] treatment facilities. Appointment Date/Time Appointment Type Appointme nt Facility Name Dec 19, 2023 02:00 PM AMBULATORY - MEDICINE [facility] Feb 15, 2024 09:00 AM AMBULATORY - MEDICINE [facility] Mar 06, 2024 03:00 PM AMBULATORY - MEDICINE [facility] Social History: Smoking Status (Most current) and Tobacco Use (All prior to encounter date) This section includes the most current, and the historical, smoking and tobacco- related health factors from the [place] facility where the Encounter took place. Current Smoking Status This section includes the most current smoking, or tobacco-related health factor, from the [place] facility where the Encounter took place. Date/Time Current Smoking Status Comment [facility] Jan 27, 2021 03:35 PM VA-TOBACCO NEVER USED [facility] Encounter Notes: All associated encounter notes This section contains the clinical notes associated to the Encounter. Date/Time Encounter Note(s) Provider Source Nov 16, 2023 12:00 AM NONVA DIAGNOSTIC [facility] [place] REPORT: LOCAL TITLE: NON-VA DIAGNOSTICS STANDARD TITLE: NONVA DIAGNOSTIC STUDY REPORT DATE OF NOTE: NOV 16, 2023 ENTRY DATE: JAN 31, 2024@13:41:22 AUTHOR: RIANA HERNANDEZ EXP COSIGNER: URGENCY: STATUS: COMPLETED VistA Imaging - Scanned Document SCANNED DOCUMENT SIGNATURE NOT REQUIRED Electronically Filed: 01/31/2024 by: RIANA LOVING [facility]
--- OUTSIDE RECORDS SUMMARY | 2024-05-23 08:22 | XMS_ITS | Encounter Summary ---
Author Name [facility] [place] [facility] [place] Organization [facility] [place] Address [address] [place] [address] Care Team Providers Care Certified Neurodiagnostic Technologist Name Role Phone ELISSA TRUJILLO Primary Care [...] MEDICARE SUPPLEMEN MARIEL Apr 27, 2012 PLAN [id number] EL[address] AMOS UL PATIENT AAR MED [facility] MEDICARE SUPPLEMEN MARIEL Apr 27, 2012 [facility] [id number] [place] UL PATIENT MEDICARE (WNR) MEDICARE (M) PART A 2011 PART A [id number] [place] UL PATIENT MEDICARE (WNR) MEDICARE (M) PART B 2011 PART B [id number] ELIZABETH AMOS UL PATIENT Selected Encounter This section includes the information on record at [place] for the Encounter. Date/Time Encounter Type Encounter Description Reason Provider Source Feb 15, 2024 09:00 AM DIABETIC CUSTOM MOLDED SHOE PODIATRY ICD-10-CM E11.51 Type 2 diabetes w diabetic peripheral angiopath w/o gangrene SYLVIA GARCIA Lily Encounter Template Text not used by [place] Assessments - Encounter Diagnoses This section includes the primary and secondary diagnoses documented for the Encounter. Date/Time Primary/Secondary Diagnosis Diagnosis Name Provider Source Mar 01, 2024 11:19 AM PRIMARY Type 2 diabetes w diabetic peripheral angiopath w/o gangrene SYLVIA GARCIA [place] Plan of Treatment: Future Appointments (+ 6 months) and Future Tests (+/- 45 days) The Plan of Treatment section includes future care activities for the patient from all [place] treatmentfacilities. This section includes future appointments and future orders which are active, pending or scheduled. Future Appointments This section includes appointments that were scheduled to occur 6 months from the date of the Encounter, up to a maximum of 20 appointments. The data comes from all [place] treatment facilities. Appointment Date/Time Appointment Type Appointme nt Facility Name Mar 06, 2024 03:00 PM AMBULATORY - MEDICINE [facility] Jul 17, 2024 02:30 PM AMBULATORY - MEDICINE [facility] Lab Results: +/- 30 days of the encounter This section includes the Chemistry and Hematology Lab Results on record with [place] for the patient. Radiology Reports and Pathology Reports are provided separately, in subsequent sections. Lab Results This section contains the Chemistry/Hematology Results that were resulted 30 days before or 30 daysafter the date of the Encounter. Date/Time Source Result Type Result - Unit Interpretation Reference Range Comment Feb 29, 2024 11:58 AM [facility] HEMOGLOBIN A1C PANEL Specimen Type: BLOOD Comment: [...] Aug 15, 2023 02:27 PM Reporting Lab: [address] [address] Performing Lab: [address] [address] HEMOGLOBIN A1C 5.9 H 4.0-5.6 Feb 29, 2024 11:58 AM [place] MICROALBUMIN CREATININE RATIO PANEL Spe cimen Type: URINE No comment entered. Ordering Provider: KEO ANAYA Report Released Date/Time: Aug 15, 2023 02:27 PM Reporting Lab: [facility] [address] [facility] [address] Performing Lab: [facility] [address] [address] MICROALBUMIN/C REATININE RATIO 10.2 mg/g 0-29.9 MICROALBUMIN,Q UANTITATIVE 1.7 mg/dL RR UNAVAIL CREATININE URINE 166.35 mg/dL Social History: Smoking Status (Most current) and Tobacco Use (All prior to encounter date) This section includes the most current, and the historical, smoking and tobacco- related health factors from the [place] facility where the Encounter took place. Current Smoking Status This section includes the most current smoking, or tobacco-related health factor, from the [place] facility where the Encounter took place. Date/Time Current Smoking Status Comment Padmini itkendall Feb 14, 2023 01:30 PM [facility]TOBACCO NEVER USED [place] Tobacco Use History This section includes a history of the smoking, or tobacco-related health factors, that were collected on or before the date of the Encounter. The data comes from the [place] facility where the Encounter took place. Date/Time Smoking Status/Tobacco Use Comment F acility Jan 27, 2022 02:00 PM RI-TOBACCO NEVER USED [facility] Nov 08, 2017 10:02 AM [place]-TOBACCO NEVER USED [place] Nov 08, 2017 08:55 AM LIFETIME NON-TOBACCO USER [facility] Nov 08, 2016 09:08 AM LIFETIME NON-TOBACCO USER [place] October 21, 2015 02:24 PM LIFETIME NON-TOBACCO USER [place] Sep 10, 2012 09:28 AM LIFETIME NON-TOBACCO USER [place] Encounter Notes: All associated encounter notes This section contains the clinical notes associated to the Encounter. Date/Time Encounter Note(s) Provider Source Feb 15, 2024 12:45 PM PODIATRY NOTE: LOCAL TITLE: PODIATRY NOTE STANDARD TITLE: PODIATRY NOTE DATE OF NOTE: FEB 15, 2024@12:45 ENTRY DATE: FEB 15, 2024@12:45:51 AUTHOR: SYLVIA GARCIA COSIGNER: URGENCY: STATUS: COMPLETED S: Pt presents for pickup of new therapeutic shoes. O: No new foot health issues at this time. A:Type 2 Diabetes Mellitus P: Dispensed Lincoln X821m size 12 wide. They were checked for fit by palpating the length, width and height in the toe box area. They were very comfortable and was instructed to wear them around the house to make sure they fit properly. Pt was informed that if he elected to wear them out on the street that they will not be able to returned within 30 days of dispensing of shoes. Pt was Instructed to make a follow up appt. in the event the shoes do not fit properly-and to bring shoes to that visit. 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
--- OUTSIDE RECORDS SUMMARY | 2024-05-23 08:22 | XMS_ITS ---
Author Name [facility] [place] [place] Organization [facility] [place] Address [address] [place] [address] Care Team Providers Care Apprentice/Lineman Name Role Phone ELISSA TRUJILLO Primary Care [...] PLAN MEDICARE SUPPLEMEN MARIEL Apr 27, 2012 [facility] [id number] ELIZAB[address] AMOS UL PATIENT AARP MED [facility] MEDICARE SUPPLEMEN MARIEL Apr 27, 2012 [facility] [id number] [phone] ELIZABETH AMOS UL PATIENT MEDICARE (WNR) MEDICARE (M) PART A 2011 PART A [id number] ELIZABETH AMOS UL PATIENT MEDICARE (WNR) MEDICARE (M) PART B 2011 PART B [id number] ELIZABETH AMOS UL PATIENT Selected Encounter This section includes the information on record at [place] for the Encounter. Date/Time Encounter Type Encounter Description Reason Provider Source Mar 06, 2024 03:00 PM ADMN SARSCOV2 VACC 1 DOSE PRIMARY CARE/MEDICINE ICD-10-CM Z23. Encounter for immunization ELISSA TRUJILLO [facility] Encounter Template Text not used by [place] Assessments - Encounter Diagnoses This section includes the primary and secondary diagnoses documented for the Encounter. Date/Time Primary/Secondary Diagnosis Diagnosis Name Provider Source Mar 06, 2024 03:00 PM SECONDARY Encounter for immunization NORI HUGHES [facility] Plan of Treatment: Future Appointments (+ 6 months) and Future Tests (+/- 45 days) The Plan of Treatment section includes future care activities for the patient from all [place] treatmentfacilities. This section includes future appointments and future orders which are active, pending or scheduled. Future Appointments This section includes appointments that were scheduled to occur 6 months from the date of the Encounter, up to a maximum of 20 appointments. The data comes from all [place] treatment facilities. Appointment Date/Time Appointment Type Appointme nt Facility Name Jul 17, 2024 02:30 PM AMBULATORY - MEDICINE [facility] Lab Results: +/- 30 days of the encounter This section includes the Chemistry and Hematology Lab Results on record with [place] for the patient. Radiology Reports and Pathology Reports are provided separately, in subsequent sections. Lab Results This section contains the Chemistry/Hematology Results that were resulted 30 days before or 30 daysafter the date of the Encounter. Date/Time Source Result Type Result - Unit Interpretation Reference Range Comment Feb 29, 2024 11:58 AM [facility] HEMOGLOBIN A1C PANEL Specimen Type: BLOOD Comment: [...] Aug 15, 2023 02:27 PM Reporting Lab: [address] [address] Performing Lab: [address] [address] HEMOGLOBIN A1C 5.9 H 4.0-5.6 Feb 29, 2024 11:58 AM [facility] MICROALBUMIN CREATININE RATIO PANEL Spe cimen Type: URINE No comment entered. Ordering Provider: KEO ANAYA Report Released Date/Time: Aug 15, 2023 02:27 PM Reporting Lab: [facility] [address] [facility] [address] Performing Lab: [facility] [address] [facility] [address] MICROALBUMIN/C REATININE RATIO 10.2 mg/g 0-29.9 MICROALBUMIN,Q UANTITATIVE 1.7 mg/dL RR UNAVAIL CREATININE URINE 166.35 mg/dL Immunizations: All administered on the encounter date This section contains immunizations associated to the Encounter. Immunization Series Date Issued Reaction Comments COVID-19 (MODERNA), MRNA, LN P-S, PF, 50 MCG/0.5 ML (AGES 12+ YEARS) Mar 06, 2024 INFLUENZA, HIGH-DOSE, TRIVALENT, PF Mar 06 Social History: Smoking Status (Most current) and Tobacco Use (All prior to encounter date) This section includes the most current, and the historical, smoking and tobacco- related health factors from the [place] facility where the Encounter took place. Current Smoking Status This section includes the most current smoking, or tobacco-related health factor, from the [place] facility where the Encounter took place. Date/Time Current Smoking Status Comment Padmini ity Mar 06, 2024 03:00 PM [place]-TOBACCO NEVER USED [facility] Tobacco Use History This section includes a history of the smoking, or tobacco-related health factors, that were collected on or before the date of the Encounter. The data comes from the [place] facility where the Encounter took place. Date/Time Smoking Status/Tobacco Use Comment F acility Jan 27, 2021 03:35 PM [place]-TOBACCO NEVER USED [facility] Encounter Notes: All associated encounter notes This section contains the clinical notes associated to the Encounter. Date/Time Encounter Note(s) Provider Source Mar 06, 2024 03:14 PM PREVENTIVE MEDICIN E NURSING NOTE: LOCAL TITLE: CLINICAL REMINDERS/NURSING STANDARD TITLE: PREVENTIVE MEDICINE NURSING NOTE DATE OF NOTE: MAR 06, 2024@15:14 ENTRY DATE: MAR 06, 2024@15:14:43 AUTHOR: JO ANN HUGHES EXP COSIGNER: URGENCY: STATUS: COMPLETED Suicide Screen: C-SSRS Screening [place] Suicide Severity Rating Scale (C-SSRS) screener 1. Over the past month, have you wished you were or wished you could go to sleep and not wake up? No 2. Over the past month, have you had any actual thoughts of killing yourself? No 3. Over the past month, have you been thinking about how you might do this? Response not required due to responses to other questions. 4. Over the past month, have you had these thoughts and had some intention of acting on them? Response not required due to responses to other questions. 5. Over the past month, have you started to work out or worked out the details of how to kill yourself? Response not required due to responses to other questions. 6. If yes, at any time in the past month did you intend to carry out this plan? Response not required due to responses to other questions. 7. In your lifetime, have you ever done anything, started to do anything, or prepared to do anything to end your life (for example, collected pills, obtained a gun, gave away valuables, went to the roof but didn't jump)? No 8. If YES, was this within the past 3 months? Response not required due to responses to other questions. Homelessness/Food Insecurity Screen: In the past 2 months, have you been living in stable housing that you own, rent, or stay in as part of a household? Yes - Living in stable housing. Are you worried or concerned that in the next 2 months you may NOT have stable housing that you own, rent, or stay in as part of a household? No - Not worried about housing near future The [employer] reports the following: Within the past 12 months, you worried whether your food would run out before you got money to buy more. Never true Within the past 12 months, the food you bought just didn't last and you didn't have money to get more. Never true Depression Screening: Perform PHQ-2 A PHQ-2 screen was performed. The score was 4 which is a positive screen for depression. Over the past two weeks, how often have you been bothered by the following problems? 1. Little interest or pleasure in doing things More than half the days 2. Feeling down, depressed, or hopeless More than half the days Licensed Independent Provider notified of positive screen and need for follow-up. Name of provider notified: RONNIE Falls & Incontinence Screen: Falls Screen: During the past 12 months, did the patient report any falls? 4. No falls within the past year. Incontinence Screen: During the past 12 months, has the patient has any characteristics of incontinence (ability, voiding, leakage, etc.)? No incontinence. Tobacco Use Screening: The patient has never used tobacco. Influenza Immunization: Influenza, High-Dose, Trivalent, Preservative Free (Fluzone-Syringe) Administered: INFLUENZA, HIGH-DOSE, TRIVALENT, PF Date Administered: Mar 06, 2024 15:18 Crown Pouncer: [employer] PASTEUR Lot: [id number] Exp Date: Nov 24, 2024 [facility]: [id number] Admin Route/Site: INTRAMUSCULAR/LEFT DELTOID Dosage: 0.5mL Vaccine Information Statement(s): INFLUENZA(FLU) VACC(INACTIVATED OR RECOMBINANT)VIS Dec 31, 2020 ([place]) Order By: Policy Administered By: Jo Ann Hughes The Influenza Vaccine Information Statement (VIS) was reviewed with the patient/caregiver which lists the benefits and risks of the vaccine and the risks of not receiving the Influenza vaccine. The patient/caregiver denied any prior severe reaction to this vaccine or its components or a severe allergic reaction, such as anaphylaxis, to any vaccine or any injectable therapy. The patient/caregiver gave verbal consent to receive the vaccine. Alcohol Use Screen (AUDIT-C): Alcohol Screen: SCREEN FOR ALCOHOL (AUDIT-C) An alcohol screening test (AUDIT-C) was negative (score=1). 1. How often did you have a drink containing alcohol in the past year? Consider a drink to be a 12 ounce can or bottle of regular beer, 8 ounces of malt liquor, a 5 ounce glass of table wine, or a 1.5 ounce shot of liquor (like scotch, gin, or vodka). Monthly or less 2. How many drinks containing alcohol did you have on a typical day when you were drinking in the past year? One or two drinks 3. How often did you have six or more drinks on one occasion in the past year? Never COVID-19 Immunization: Moderna Monovalent (Spikevax) Administered: COVID-19 (MODERNA), MRNA, LNP-S, PF, 50 MCG/0.5 ML (AGES 12+ YEARS) Date Administered: Mar 06, 2024 15:19 Crown Pouncer: [employer]. Lot: [id number] Exp Date: Nov 01, 2024 [facility]: [id number] Admin Route/Site: INTRAMUSCULAR/RIGHT DELTOID Dosage: 0.5mL Vaccine Information Statement(s): COVID-19 MRNA VACCINE (12+ YRS) VACCINE VIS Mar 15, 2023 ([place]) Order By: Policy Administered By: Jo Ann Hughes Vaccine administered without complications. /med/ JO ANN HUGHES LPN LPN Signed: 03/06/2024 15:20 JO ANN HUGHES [facility]
[2024-05-23 10:04] LABS: MANUAL DIFF FLAG NO
[2024-05-23 10:13] LABS: Basophils Absolute Auto 0.1 X10*3/uL (0.0-0.2); Basophils Percent Auto 1.3 % (0-2); Eosinophils Absolute Auto 0.1 X10*3/uL (0.0-0.4); Eosinophils Percent Auto 2.7 % (0-4); Hematocrit 38.2 % (42.0-52.0); Hemoglobin 12.4 g/dl (14.0-18.0); Imm Gran Abs Auto 0.03 X10*3/uL (0.00-0.03); Imm Gran Pct Auto 0.6 % (0.0-0.4); Lymphocytes Absolute Auto 1.5 X10*3/uL (1.2-4.9); Lymphocytes Percent Auto 28.3 % (20-40); Mean Corpuscular HGB Conc 32.5 g/dl (31.0-36.0); Mean Corpuscular Hemoglobin 28.3 pg (27.0-33.0); Mean Corpuscular Volume 87.2 fL (80.0-98.0); Mean Platelet Volume 9.3 fL (9.4-12.4); Monocytes Absolute Auto 0.7 X10*3/uL (0.1-1.2); Monocytes Percent Auto 12.7 % (2-11); Neutrophils Absolute Auto 2.9 x10*3/uL (2.0-8.3); Neutrophils Percent Auto 54.4 % (45-73); Platelet Count 245 X10*3/uL (160-400); Red Blood Count 4.38 X10*6/uL (4.60-5.80); Red Cell Distribution Width 14.3 % (11.0-16.0); White Blood Count 5.3 X10*3/uL (4.8-10.8)
[2024-05-23 10:44] LABS: Alanine Aminotransferase 10 U/L (0-40); Anion Gap 14 (12-20); Aspartate Amino Transferase 19 U/L (5-37); Blood Urea Nitrogen 18 mg/dL (9-16); Carbon Dioxide 27 mmol/L (22-29); Chloride 101 mmol/L (96-108); Cholesterol 139 mg/dL (<200); Estimated Glomerular Filt Rate > 60; Glucose Fasting 121 mg/dL (60-99); HDL Cholesterol 48 mg/dL (>40); Iron 81 mcg/dL (45-160); LDL Cholesterol Calculated 62 mg/dL (<100); Percent Iron Saturation 30 % (15-50); Potassium 3.8 mmol/L (3.3-5.1); Sodium 138 mmol/L (135-145); Total Iron Binding Capacity 270 mcg/dL (228-428); Triglycerides 146 mg/dL (<150); Unsaturated Iron Binding 189 ug/dL
[2024-05-23 11:44] LABS: Estimated Average Glucose 120 mg/dL; Hemoglobin A1C 124.7777 umol/L; Hemoglobin A1c % 5.8 % (<6.0); Total Hemoglobin (HGBA1C) 3109.1018 umol/L
== END 2024-05-23 08:03 | disposition home or self-care (01) ==
LOC: HO.HMGCLDS 08:02
PROVIDERS: PCP Internal Medicine; Visit Provider Internal Medicine
DX: D64.9 Anemia, unspecified (principal); E78.5 Hyperlipidemia, unspecified; I10 Essential (primary) hypertension; E11.9 Type 2 diabetes mellitus without complications
CPT/HCPCS: 36415; 80048; 80061; 83036; 83540; 84450; 84460; 85025

== ENCOUNTER 2024-05-29 10:43 | Outpatient (AMB) | payer MEDICARE, SELFPAY ==
--- OUTSIDE RECORDS SUMMARY | 2024-05-29 11:18 | XMS_ITS ---
Author Organization [facility] Address [address] [place] [address] Care Team Providers Care Polisher Numeral Name Role Phone Marina MCDANIELS, Nubia Zelaya Primary Care Provider Un available Black, Sussy Unavailable [phone] Allergies No Known Allergies REASON FOR VISIT [...] Ordered Date Performed Result Body Sit e 55009-PTTUGDZ NAIL, 6 OR MORE 02/14/2024 N/A 69591- Debride <25 sq cm 02/14/2024 N/A 61666-PIIP SKIN LESIONS, OVER 4 02/14/2024 N/A Encounters Encounter Location Date Provider Diagnosis [facility] [address] [address] 02/14/2024 Sussy Lowery Non-pressure chronic ulcer of [...] INSTRUCTIONS.pdf) Pending Test Test Name Order Date 88988-XZHGMUI NAIL, 6 OR MORE 02/14/2024 64523- Debride <25 sq cm 02/14/2024 66175-EGNH SKIN LESIONS, OVER 4 02/14/20 24 Next Appt Details Follow Up: 3 Months, Reason: Provider Name:Sussy Lowery , 06/02/2024 04:00:00 PM, [address] [place] [address], [address], Procedure Notes * Category Sub-Category Detail Notes [...] as necessary. Patient chooses, no pharmaceutical tx (76376) Debride skin< 25 sq cm Open wound [...] of the wound post debridement is stable (64114) Keratoma Treatment Parring or Cutting o f Benign Hyperkeratotic Lesion(s) 64897 ( >4 Lesions) - The Benign hyperkeratotic lesions, as described above were pared, and/or cut utilizing a sterile #15 blade, tissue nippers, and/or dremel Progress Notes * Tobin AMOSDOB:1945 ( 78 yo M)Acc No.[id number]:02/14/2024 Progress Note Patient:Tobin Stevenson Provider:?Sussy Lowery DPM :1945???Age:78 Y???Sex:Male Romoe e:02/14/2024 Address:[address] [place] [id number] Pcp:Jayjay Graham Subjective: * Chief Complaints: * [...] ?no Exercise. ?Marital status: . 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 * Medications:?TakingTacrolimu s 0.1 % Ointment [...] * Vitals:?Ht: 6 ft, Wt: 223, B DC: 30.24, Shoe size: 12W, BP: 110/70 mm [...] and midfoot limited to breakdown of skin?Procedure: 75693- Debride <25 sq cm 3.?Type 2 diabetes mellitus with diabetic polyneuropathy?Procedure: 60255-PAZH SKIN LESIONS, OVER 4 4.?Tinea unguium?Procedure: 82713-PZBRBDH NAIL, 6 OR MORE * Procedures:?Debride Nail 6-10:?Nail debridement?Nail debridement performed extensively to reduce/remove overall nail length and girth, subungual debris, and necrotic tissue, by manual and electrical means with use of a nail nipper and/or dremel, to more viable healthy nail plate or bed tissue 6-10. Silver nitrate used for any petechial bleeding as necessary. Patient chooses, no pharmaceutical tx (27691).?Debride skin< 25 sq cm:?Open wound?NEUROPATHY: Physician of [...] of the wound post debridement is stable (95819).?Keratoma Treatment:?Parring or Cutting of Benign Hyperkeratotic Lesion(s)?30661 ( >4 Lesions) - The Benign hyperkeratotic lesions, as described above were pared, and/or cut utilizing a sterile #15 blade, tissue nippers, and/or dremel.? * Procedure Codes:?97349 DEBRI DE NAIL, 6 OR MORE, Modifiers: XS 59053 TRIM SKIN LESIONS, OVER 4, Modifiers: XS 29958 ACTIVE WOUND CARE/20 CM OR <, Modifiers: [...] Lowery DPM Date:?2023 Generated for Tu schrader/Yang/Shiraitting on:?05/29/2024 11:18 AM EST History and Physical Notes * [...]
--- OUTSIDE RECORDS SUMMARY | 2024-05-29 11:18 | XMS_ITS ---
Author Organization [facility] Address [address] [place] [address] Care Team Providers Care Cistern Room Operator Name Role Phone Marina MCDANIELS, Nubia Zelaya Primary Care Provider Un available Black, Sussy Unavailable [phone] Allergies No Known Allergies REASON FOR VISIT [...] (L97.411) Active confirmed Response to treatment Problem [id number] 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) Active confirmed Vital Signs Height 6 ft in 11/19/2023 Weight 214 lbs 11/19/2023 BMI 29.02 kg/m2 11/19/2023 Encounters Encounter Location Date Provider Diagnosis [facility] [place] [address] [place] [address] 11/19/2023 Sussy Lowery 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 and Type 2 diabetes mellitus with diabetic polyneuropathy E11.42 Assessments Encounter Date Diagnosis (ICD Code) Assessment Notes Treatment Notes Treatment Clinical Notes Section Notes 11/19/2023 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 breakdown of skin (ICD-10 - L97.421) rx [facility] 11/19/2023 Type 2 diabetes [...] midfoot limited to breakdown of skin rx [facility] Next Appt Details Follow Up: as scheduled, [place] son: Provider Name:Sussy Lowery , 06/02/2024 04:00:00 PM, [address] [place], [address], Progress Notes * Tobin BEYDOB:1945 ( 78 yo M)Acc No.[id number]:11/19/2023 Progress Note Patient:?Tobin Bey Provider:?Sussy Lowery DPM :1945???Age:78 Y???Sex:Male Romeo e:11/19/2023 Address:[address] [place], [place] [id number] Pcp:Jayjay Graham Subjective: * Chief Complaints: * [...] ?no Exercise. ?Marital status: . 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 * Medications:?TakingTacrolimu s 0.1 % Ointment [...] * Vitals:?Ht: 6 ft, Wt: 214, B AK: 29.02, Shoe size: 12W, BS: 163, Wt-k.07 [...] Center due to pedal risk of limb/life, [place].? * Follow Up:?as scheduled * Images: * Sign off status: Completed true * Provider:?Sussy Lowery DPM Date:?2023 Generated for Tu schrader/Yang/eTransmitting on:?05/29/2024 11:18 AM EST History and Physical [...]
--- OUTSIDE RECORDS SUMMARY | 2024-05-29 11:18 | XMS_ITS ---
Author Organization [facility] Address [address] [facility] [place] [address] Care Team Providers Care Well Logging Operator Mud Analysis Name Role Phone Marina MCDANILES, Nubia Zelaya Primary Care Provider Un available Sebastián Sussy Unavailable [phone] REASON FOR VISIT open sore on heel Encounters Encounter Location Date Provider Diagnosis [address] [address] 11/19/2023 Sussy Sebastián Plan Of Treatment Next Appt Details Provider Name:Sussy A Sebastián , 06/02/2024 04:00:00 PM, [address] [place], [address], Progress Notes * SOTERO TobinDOB:1945 ( 78 yo M)Acc No.[id number]:11/19/2023 Patient:?Sotero Tobin :1945???Age:78 Y???Sex:Male Address:[place], [address] * true * Date:? Generated for Printi ng/Yang/eTransmitting on:?05/29/2024 11:18 AM EST
--- OUTSIDE RECORDS SUMMARY | 2024-05-29 11:19 | XMS_ITS | Continuity of Care Document ---
Author Name [facility] Organization [facility] Care Team Providers Care [employer] Lecturer Name Role Phone [facility] Unavailable Unavailable Problems Combined list of problems [...] Hip replacement February 232016 Entered By: Art SANTAAMRIA Comment: Right shoulder replacement 2016 [facility] At risk of pressure ulcer (SNOMED CT 505396072) Active Condition [facility] DM - Diabetes mellitus (SNOMED CT 96280238) Active Condition [facility] HTN - Hypertension (SNOMED CT 86538667) Active Condition [facility] Hyperlipidemia (SCT 91547381) Active Condition [place] Iron deficiency anemia Active Condition [facility] Osteoarthritis Active Condition [facility] Pain in right hip joint Active Condition [place] Polyp of colon Active Condition September 262013 Entered By: LIA ABRAHAM Comment: 2012 2 polypsSep 2017 Entered By: Art SANTAMARIA Comment: 06/13 1 polypApr 2020 Entered By: Art SANTAMARIA Comment: 10/2019 EGD and colonic polyp-see note 08/27/20-due 11/17 colon [place] Postsurgical Status of Cataract Extraction Active Condition Sep 10, 2012 Entered By: LIA ABRAHAM Comment: alondra [place] Pressure injury of buttock Active Condition Aug 15, 2023 Entered By: KEO ANAYA Comment: Managed by MYNOR Acevedo [place] Psoriasis Active Condition [facility] Diagnosis: ICD-10-CM E11.9 Type 2 diabetes mellitus without complications Active Diagnosis [place] Diagnosis: ICD-10-CM E11.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 Medication Details Route Status Patient Instructions Prescription Expires Prescription Number Last Dispense Date Ordering Provider Order Date Order Qty Source ASPIRIN 81MG TAB,EC TAKE ONE TABLET BY MOUTH DAILY ORAL ACTIVE JOSH ABRAHAM 2013 [facility] CICLOPIROX OLAMINE 0.77% CREAM,TOP APPLY A TOPICALL Y TWICE DAILY TOPICA Maribeth ACTIVE JOSH ABRAHAM 2012 [facility] CYANOCOBALA MIN 1000MCG TAB TAKE ONE TABLET BY MOUTH DAILY ORAL ACTIVE JOSH ABRAHAM 2013 [facility] DICLOFENAC NA 1% GEL,TOP APPLY 2 GRAMS TOPICALL Y FOUR TIMES DAILY NEEDED FOR OSTEOART HRITIS - USE DOSING CARD PROVIDED IN BOX TOPICA L ACTIVE 01/30/2025 [id number] 4 Frantz TRUJILLO 2023 100 [facility] DICLOFENAC NA 1% GEL,TOP APPLY 2 GRAMS TOPICALL Y FOUR TIMES DAILY NEEDED FOR OSTEOART HRITIS - USE DOSING CARD PROVIDED IN BOX [facility]24 [id number] 4 KATIE CAEVEDO 2022 100 [facility] FLUOCINONID E 0.05% CREAM,TOP APPLY A TOPICALL Y TWICE DAILY TOPICA L ACTIVE JOSH ABRAHAM 2012 [facility] HYDROCHLORO THIAZIDE 25MG TAB TAKE ONE TABLET BY MOUTH DAILY TO PREVENT FLUID/CO NTROL BLOOD PRESSURE ORAL ACTIVE 01/30/2025 [id number] 4 Frantz TRUJILLO 2023 90 [place] HYDROCHLORO THIAZIDE 25MG TAB TAKE ONE TABLET BY MOUTH DAILY TO PREVENT FLUID/CO NTROL BLOOD PRESSURE ORAL DISCONT INUED 02/15/2024 [id number] 4 KATIE ACEVEDO S 2022 90 [place] LIDOCAINE 5% PATCH APPLY 1 PATCH TOPICALL Y ONCE DAILY NEEDED (LEAVE PATCH ON FOR 12 HOURS, THEN REMOVE PATCH) TOPICA L ACTIVE 01/30/2025 [id number] 4 Frantz TRUJILLO A 2023 30 [place] LIDOCAINE 5% PATCH APPLY 1 PATCH TOPICALL Y ONCE DAILY NEEDED (LEAVE PATCH ON FOR 12 HOURS, THEN REMOVE PATCH) TOPICA L DISCONT INUED 02/15/2024 [id number] 4 KATIE ACEVEDO S 2022 30 [place] LORATADINE 10MG TAB TAKE ONE TABLET BY MOUTH DAILY ORAL ACTIVE JOSH ABRAHAM 2013 [place] LOSARTAN POTASSIUM 100MG TAB TAKE ONE TABLET BY MOUTH ONCE DAILY FOR BLOOD PRESSURE /HEART ORAL ACTIVE 01/30/2025 [id number] 4 Frantz TRUJILLO A 2023 90 [place] LOSARTAN POTASSIUM 100MG TAB TAKE ONE TABLET BY MOUTH ONCE DAILY FOR BLOOD PRESSURE /HEART ORAL DISCONT INUED 02/15/2024 [id number] 4 KATIE ACEVEDO 2022 90 [place] MAGNESIUM OXIDE TAB TAKE BY MOUTH ORAL ACTIVE ROWENA LAURENT 2018 [place] METFORMIN HCL 1000MG TAB TAKE ONE TABLET BY MOUTH TWICE DAILY FOR DIABETES ORAL ACTIVE 01/30/2025 [id number] 4 Frantz TRUJILLO 2023 180 [place] METFORMIN HCL 1000MG TAB TAKE ONE TABLET BY MOUTH TWICE DAILY FOR DIABETES ORAL DISCONT INUED 02/15/2024 [id number] 4 KATIE ACEVEDO 2022 180 [place] METOPROLOL TARTRATE 50MG TAB TAKE ONE TABLET BY MOUTH TWICE DAILY FOR BLOOD PRESSURE /HEART ORAL ACTIVE 09/26/2024 [id number] 4 ALVARADO ANAYA 2023 180 [place] METOPROLOL TARTRATE 50MG TAB TAKE ONE TABLET BY MOUTH TWICE DAILY FOR BLOOD PRESSURE /HEART ORAL DISCONT INUED 01/16/2024 [id number] 4 KATIE ACEVEDO S 2022 180 [place] MULTIVITAMI NS W/MINERALS TAB TAKE ONE TABLET BY MOUTH DAILY ORAL ACTIVE JARADJOSH REBECA 2013 [place] OTHER CAP/TAB TAKE 1 APPLICAT ION topical ONCE DAILY NEEDED ACTIVE ROWENA LAURENT 2020 [place] ROSUVASTATI N CA 10MG TAB TAKE ONE-HALF TABLET BY MOUTH TWO TIMES A WEEK FOR CHOLESTE ROL ORAL ACTIVE 01/30/2025 [id number] 4 Frantz TRUJILLO 2023 13 [place] ROSUVASTATI N CA 10MG TAB TAKE ONE-HALF TABLET BY MOUTH TWO TIMES A WEEK FOR CHOLESTE ROL ORAL DISCONT INUED 02/15/2024 [id number] 4 KATIE ACEVEDO S 2022 13 [place] SEMAGLUTIDE 0.25MG/0.37 5ML INJ,SOLN,PE N,3ML INJECT 0.5MG SUBCUTAN EOUSLY ONCE A WEEK SUBCUT ANEOUS DISCONT INUED 01/27/2024 [id number] 3 KATIE ACEVEDO S 2022 1 [place] SEMAGLUTIDE 1MG/0.75ML INJ,SOLN,PE N,3ML INJECT 1MG SUBCUTAN EOUSLY ONCE A WEEK SUBCUT ANEOUS ACTIVE 09/26/2024 [id number] 4 ALVARADO ANAYA 2023 3 [place] SEMAGLUTIDE 1MG/0.75ML INJ,SOLN,PE N,3ML INJECT 1MG SUBCUTAN EOUSLY ONCE A WEEK SUBCUT ANEOUS DISCONT INUED 05/11/2024 [id number] 4 ALVARADO ANAYA 2023 1 [place] SEMAGLUTIDE 1MG/0.75ML INJ,SOLN,PE N,3ML INJECT 1MG SUBCUTAN EOUSLY ONCE A WEEK SUBCUT ANEOUS DISCONT INUED 02/17/2024 [id number] CURTIS,KATIE CHESTER S 2022 1 [place] SENNOSIDE 8.6MG (SENNA) TAB TAKE BY MOUTH DAILY ORAL ACTIVE JOSH ABRAHAM 2013 [place] SPIRONOLACT ONE 25MG TAB TAKE TWO TABLETS BY MOUTH ONCE DAILY ORAL ACTIVE 01/30/2025 [id number] 4 Frantz TRUJILLO 2023 180 [place] SPIRONOLACT ONE 25MG TAB TAKE TWO TABLETS BY MOUTH DAILY [REPLACE S CRISTIAN NE] ORAL DISCONT INUED 02/15/2024 [id number] 4 CURTIS,KATIE CHESTER S 2022 180 [place] TACROLIMUS 0.1% OINT,TOP APPLY THIN LAYER TOPICALL Y TWICE DAILY FOR ATOPIC DERMATIT IS TOPICA L PROVIDE R HOLD 03/27/2024 [id number] KATIE ACEVEDO CHESTER S 2022 180 [place] VITAMIN D3 (CHOLECALCI FEROL) TAB TAKE BY MOUTH ORAL ACTIVE ROWENA LAURENT [place] Immunizations Combined list of available immunizations from the Department of Defense and Veterans Affairs facilities. Immunization Series Date Given Administered By Site Reaction Lot Number CVX Code Drug Bulb Grower Status Comments Source COVID-19 (MODERNA), MRNA, LNP-S, PF, 50 MCG/0.5 ML (AGES 12+ YEARS) 2023 NORI HUGHES AXEL RIGHT DELTO ID [id number] 312 complet ed [facility] INFLUENZA, HIGH-DOSE, TRIVALENT, PF 2023 NORI HUGHES AXEL LEFT DELTO ID [id number] 135 complet ed [facility] COVID-19 (MODERNA), MRNA, LNP-S, PF, 50 MCG/0.5 ML (AGES 12+ YEARS) 1 2022 312 complet ed Lot#: [id number] Mfr: [employer] Expiratio n Date: 08/31/23 [facility] INFLUENZA, HIGH-DOSE, QUADRIVALENT 2022 WEI OCHOA LEFT DELTO ID [id number] 197 complet ed [place] COVID-19 (MODERNA), MRNA, LNP-S, BIVALENT BOOSTER, PF, 50 MCG/0.5 ML OR 25MCG/0.25 ML DOSE 2021 SHEREEN IVERSON LEFT DELTO ID [id number] 229 complet ed [place] COVID-19 (MODERNA), MRNA, LNP-S, PF, 100 MCG OR 50 MCG DOSE 3 2020 207 complet ed MOD; [id number]; 2 [facility] INFLUENZA VACCINE, QUADRIVALENT, ADJUVANTED 2020 205 complet ed [facility] COVID-19 (MODERNA), MRNA, LNP-S, PF, 100 MCG/0.5 ML DOSE 2 2020 207 complet ed MOD; [id number]; 1 [facility] COVID-19 (MODERNA), MRNA, LNP-S, PF, 100 MCG/0.5 ML DOSE 1 2020 207 complet ed MOD; [id number]; 1 [facility] INFLUENZA, UNSPECIFIED FORMULATION 2019 88 complet ed [facility] INFLUENZA, SEASONAL, INJECTABLE 2018 141 complet ed [facility] INFLUENZA, SEASONAL, INJECTABLE 2017 141 complet ed documenta tion influenza HD 03-21-18 Left deltoid [id number] exp 09-26-18 [facility] [...] Aug 15, 2023 02:27 PM Reporting Lab: [facility] [address] [address] Performing [facility]: [facility] [address] [place] MICROALB UMIN CREATINI NE RATIO PANEL MICROALBUM IN/CREATIN INE [MASS RATIO] IN URINE 10.2 mg/g 0 - 29.9 02/28 Specimen Type: URINE No comment entered. Ordering Provider: ISABEL ANAYA Report Released Date/Time: Aug 15, 2023 02:27 PM Reporting Lab: [facility] [address] [facility] [facility] [address] Performing [facility]: [facility] [address] [facility] [address] [place] MICROALB UMIN CREATINI NE RATIO PANEL MICROALBUM IN [MASS/VOLU ME] IN URINE 1.7 mg/dL 02/28 Specimen Type: URINE No comment entered. Ordering Provider: ISABEL ANAYA Report Released Date/Time: Aug 15, 2023 02:27 PM Reporting Lab: [facility] [address] [facility] [facility] [address] Performing Lab: [facility] [address] [facility] [facility] [address] [place] MICROALB UMIN CREATINI NE RATIO PANEL CREATININE [MASS/VOLU ME] IN URINE 166.35 mg/dL 02/28 Specimen Type: URINE No comment entered. Ordering Provider: ISABEL ANAYA Report Released Date/Time: Aug 15, 2023 02:27 PM Reporting Lab: [facility] [address] [facility] [facility] [address] Performing [facility]: [facility] [address] [address] [place] LIPID PANEL FASTING CHOLESTERO L [MASS/VOLU ME] IN SERUM OR PLASMA 140 mg/dL 08/06 Specimen Type: SERUM No comment entered. Ordering Provider: ISABEL ANAYA Report Released Date/Time: Jul 23, 2023 05:25 PM Reporting Lab: [facility] [address] [facility] [facility] [address] Performing Lab: [facility] [address] [address] [place] LIPID PANEL FASTING TRIGLYCERI DE [MASS/VOLU ME] IN SERUM OR PLASMA 141 mg/dL 0 - 150 08/06 Specimen Type: SERUM No comment entered. Ordering Provider: ISABEL ANAYA Report Released Date/Time: Jul 23, 2023 05:25 PM Reporting Lab: [facility] [address] [address] Performing Lab: [facility] [address] [address] [place] LIPID PANEL FASTING CHOLESTERO L IN LDL [MASS/VOLU ME] IN SERUM OR PLASMA BY DEREK Horton 65 mg/dL 0 - 129 08/06 Specimen Type: SERUM No comment entered. Ordering Provider: ISABEL ANAYA Report Released Date/Time: Jul 23, 2023 05:25 PM Reporting Lab: [facility] [address] [address] Performing Lab: [facility] [address] [address] [place] LIPID PANEL FASTING CHOLESTERO L.TOTAL/CH OLESTEROL IN HDL [MASS RATIO] IN SERUM OR PLASMA 3.0 08/06 Specimen Type: SERUM No comment entered. Ordering Provider: ISABEL ANAYA Report Released Date/Time: Jul 23, 2023 05:25 PM Reporting Lab: [address] [address] Performing Lab: [facility] [address] [place] LIPID PANEL FASTING CHOLESTERO L IN HDL [MASS/VOLU ME] IN SERUM OR PLASMA 47 mg/dL 40 - 60 08/06 Specimen Type: SERUM No comment entered. Ordering Provider: ISABEL ANAYA Report Released Date/Time: Jul 23, 2023 05:25 PM Reporting Lab: [facility] [address] [address] Performing Lab: [facility] [address] [address] [place] BASIC METABOLI C PANEL (fasting ) UREA NITROGEN [MASS/VOLU ME] IN SERUM OR PLASMA 31 mg/dL 7 - 25 08/06 H Specimen Type: SERUM No comment entered. Ordering Provider: ISABEL ANAYA HEIDI George Report Released Date/Time: Jul 23, 2023 05:25 PM Reporting Lab: [address] [address] Performing Lab: [address] [address] [place] BASIC METABOLI C PANEL (fasting ) GLUCOSE [MASS/VOLU ME] IN SERUM OR PLASMA 124 mg/dL 65 - 100 08/06 H Specimen Type: SERUM No comment entered. Ordering Provider: ISABEL ANAYA HEIDI J Report Released Date/Time: Jul 23, 2023 05:25 PM Reporting Lab: [address] [address] Performing Lab: [address] [address] [place] BASIC METABOLI C PANEL (fasting ) SODIUM [MOLES/VOL UME] IN SERUM OR PLASMA 137 mmol/L 135 - 145 08/06 Specimen Type: SERUM No comment entered. Ordering Provider: ISABEL ANAYA Report Released Date/Time: Jul 23, 2023 05:25 PM Reporting Lab: [address] [address] Performing Lab: [address] [address] [place] BASIC METABOLI C PANEL (fasting ) POTASSIUM [MOLES/VOL UME] IN SERUM OR PLASMA 4.2 mmol/L 3.5 - 5.0 08/06 Specimen Type: SERUM No comment entered. Ordering Provider: ISABEL ANAYA Report Released Date/Time: Jul 23, 2023 05:25 PM Reporting Lab: [address] [address] Performing Lab: [address] [address] [place] BASIC METABOLI C PANEL (fasting ) CHLORIDE [MOLES/VOL UME] IN SERUM OR PLASMA 100 mmol/L 100 - 110 08/06 Specimen Type: SERUM No comment entered. Ordering Provider: ISABEL ANAYA HEIDI J Report Released Date/Time: Jul 23, 2023 05:25 PM Reporting Lab: [address] [address] Performing Lab: [facility] [address] [facility] [address] [place] BASIC METABOLI C PANEL (fasting ) CARBON DIOXIDE, TOTAL [MOLES/VOL UME] IN SERUM OR PLASMA 24 meq/L 20 - 30 08/06 Specimen Type: SERUM No comment entered. Ordering Provider: ISABEL ANAYA Report Released Date/Time: Jul 23, 2023 05:25 PM Reporting Lab: [address] [address] Performing Lab: [address] [address] [place] BASIC METABOLI C PANEL (fasting ) CREATININE [MASS/VOLU ME] IN SERUM OR PLASMA 1.33 mg/dL 0.50 - 1.40 08/06 Specimen Type: SERUM No comment entered. Ordering Provider: ISABEL ANAYA Report Released Date/Time: Jul 23, 2023 05:25 PM Reporting Lab: [address] [address] Performing Lab: [address] [address] [place] BASIC METABOLI C PANEL (fasting ) GLOMERULAR FILTRATION RATE/1.73 SQ M.PREDICTE D [VOLUME RATE/AREA] IN SERUM, PLASMA OR BLOOD BY CREATININE -BASED FORMULA (CKD-EPI 2020) 55 mL/min 60 08/06 L Specimen Type: SERUM No comment entered. Ordering Provider: ISABEL ANAYA Report Released Date/Time: Jul 23, 2023 05:25 PM Reporting Lab: [address] [address] Performing Lab: [address] [address] [place] LIVER FUNCTION PROTEIN [MASS/VOLU ME] IN SERUM OR PLASMA 7.0 g/dL 6.0 - 8.3 08/06 Specimen Type: SERUM No comment entered. Ordering Provider: ISABEL ANAYA Report Released Date/Time: Jul 23, 2023 05:25 PM Reporting Lab: [facility] [address] [address] Performing Lab: [facility] [address] [address] [facility]IVER FUNCTION ALBUMIN [MASS/VOLU ME] IN SERUM OR PLASMA 3.6 g/dL 3.5 - 5.0 08/06 Specimen Type: SERUM No comment entered. Ordering Provider: ISABEL ANAYA Report Released Date/Time: Jul 23, 2023 05:25 PM Reporting Lab: [facility] [address] [address] Performing Lab: [facility] [address] [address] [facility] [place] LIVER FUNCTION ALKALINE PHOSPHATAS E [ENZYMATIC ACTIVITY/V OLUME] IN SERUM OR PLASMA 90 U/L 40 - 150 08/06 Specimen Type: SERUM No comment entered. Ordering Provider: ISABEL ANAYA Report Released Date/Time: Jul 23, 2023 05:25 PM Reporting Lab: [facility] [address] [address] Performing Lab: [facility] [address] [address] [facility] [place] LIVER FUNCTION ASPARTATE AMINOTRANS FERASE [ENZYMATIC ACTIVITY/V OLUME] IN SERUM OR PLASMA 25 U/L 5 - 34 08/06 Specimen Type: SERUM No comment entered. Ordering Provider: ISABEL ANAYA Report Released Date/Time: Jul 23, 2023 05:25 PM Reporting Lab: [facility] [address] [address] Performing Lab: [facility] [address] [address] [facility] LIVER FUNCTION ALANINE AMINOTRANS FERASE [ENZYMATIC ACTIVITY/V OLUME] IN SERUM OR PLASMA 18 U/L 08/06 Specimen Type: SERUM No comment entered. Ordering Provider: ISABEL ANAYA HEIDI George Report Released Date/Time: Jul 23, 2023 05:25 PM Reporting Lab: [address] [address] Performing Lab: [address] [address] [place] LIVER FUNCTION BILIRUBIN. TOTAL [MASS/VOLU ME] IN SERUM OR PLASMA 0.4 mg/dL 0.2 - 1.2 08/06 Specimen Type: SERUM No comment entered. Ordering Provider: ISABEL ANAYA Report Released Date/Time: Jul 23, 2023 05:25 PM Reporting Lab: [address] [address] Performing Lab: [address] [address] [place] HEMOGLOB IN A1C PANEL HEMOGLOBIN [...] Jul 23, 2023 05:25 PM Reporting Lab: [address] [address] Performing Lab: [address] [address] [place] CBC AND DIFF (AUTO) LEUKOCYTES [#/VOLUME] IN BLOOD BY AUTOMATED COUNT 6.41 10*3/uL 4.50 - 11.00 08/06 Specimen Type: BLOOD No comment entered. Ordering Provider: ISABEL NAAYA Report Released Date/Time: Jul 23, 2023 05:25 PM Reporting Lab: [address] [address] Performing Lab: [address] [place] [address] [place] CBC AND DIFF (AUTO) ERYTHROCYT ES [#/VOLUME] IN BLOOD BY AUTOMATED COUNT 4.43 10*6/uL 4.23 - 5.66 08/06 Specimen Type: BLOOD No comment entered. Ordering Provider: ISABEL ANAYA Report Released Date/Time: Jul 23, 2023 05:25 PM Reporting Lab: [facility] [address] [facility] [address] Performing Lab: [facility] [address] [address] [place] CBC AND DIFF (AUTO) HEMOGLOBIN [MASS/VOLU ME] IN BLOOD 12.8 g/dL 12.8 - 17 08/06 Specimen Type: BLOOD No comment entered. Ordering Provider: ISABEL ANAYA Report Released Date/Time: Jul 23, 2023 05:25 PM Reporting Lab: [facility] [address] [address] Performing Lab: [facility] [address] [place] CBC AND DIFF (AUTO) HEMATOCRIT [VOLUME FRACTION] OF BLOOD BY AUTOMATED COUNT 38.9 39.2 - 50.4 08/06 L Specimen Type: BLOOD No comment entered. Ordering Provider: ISABEL ANAYA Report Released Date/Time: Jul 23, 2023 05:25 PM Reporting Lab: [facility] [address] [address] Performing Lab: [facility] [address] [place] CBC AND DIFF (AUTO) MCV [ENTITIC VOLUME] BY AUTOMATED COUNT 87.8 fL 82 - 99 08/06 Specimen Type: BLOOD No comment entered. Ordering Provider: ISABEL ANAYA Report Released Date/Time: Jul 23, 2023 05:25 PM Reporting Lab: [facility] [address] [address] Performing Lab: [facility] [address] [address] [place] CBC AND DIFF (AUTO) MCHC [MASS/VOLU ME] BY AUTOMATED COUNT 32.9 g/dL 30.8 - 35.1 08/06 Specimen Type: BLOOD No comment entered. Ordering Provider: ISABEL ANAYA Report Released Date/Time: Jul 23, 2023 05:25 PM Reporting Lab: [facility] [address] [address] Performing Lab: [facility] [address] [address] [place] CBC AND DIFF (AUTO) PLATELETS [#/VOLUME] IN BLOOD BY AUTOMATED COUNT 270 10*3/uL 140 - 360 08/06 Specimen Type: BLOOD No comment entered. Ordering Provider: ISABEL ANAYA Report Released Date/Time: Jul 23, 2023 05:25 PM Reporting Lab: [address] [address] Performing Lab: [address] [address] [place] CBC AND DIFF (AUTO) ERYTHROCYT E DISTRIBUTI ON WIDTH [RATIO] BY AUTOMATED COUNT 13.4 12.0 - 16.0 08/06 Specimen Type: BLOOD No comment entered. Ordering Provider: ISABEL ANAYA Report Released Date/Time: Jul 23, 2023 05:25 PM Reporting Lab: [facility] [address] [address] Performing Lab: [facility] [address] [address] [place] CBC AND DIFF (AUTO) MONOCYTES [#/VOLUME] IN BLOOD BY AUTOMATED COUNT 0.77 10*3/uL 0.30 - 1.10 08/06 Specimen Type: BLOOD No comment entered. Ordering Provider: ISABEL ANAYA Report Released Date/Time: Jul 23, 2023 05:25 PM Reporting Lab: [address] [address] Performing Lab: [facility] [place] [facility] [address] [facility] [address] [place] CBC AND DIFF (AUTO) MCH [ENTITIC MASS] BY AUTOMATED COUNT 28.9 pg 26.2 - 32.6 08/06 Specimen Type: BLOOD No comment entered. Ordering Provider: ISABEL ANAYA Report Released Date/Time: Jul 23, 2023 05:25 PM Reporting Lab: [facility] [place] [address] [address] Performing Lab: [facility] [address] [address] [place] CBC AND DIFF (AUTO) NEUTROPHIL S/100 LEUKOCYTES IN BLOOD BY AUTOMATED COUNT 63.0 43.7 - 75.8 08/06 Specimen Type: BLOOD No comment entered. Ordering Provider: ISABEL ANAYA Report Released Date/Time: Jul 23, 2023 05:25 PM Reporting Lab: [facility] [place] [address] [address] Performing Lab: [facility] [address] [address] [place] CBC AND DIFF (AUTO) LYMPHOCYTE S/100 LEUKOCYTES IN BLOOD BY AUTOMATED COUNT 19.8 14.0 - 42.3 08/06 Specimen Type: BLOOD No comment entered. Ordering Provider: ISABEL ANAYA Report Released Date/Time: Jul 23, 2023 05:25 PM Reporting Lab: [facility] [place] [address] [address] Performing Lab: [facility] [place] [address] [address] [place] CBC AND DIFF (AUTO) MONOCYTES/ 100 LEUKOCYTES IN BLOOD BY AUTOMATED COUNT 12.0 5.1 - 13.7 08/06 Specimen Type: BLOOD No comment entered. Ordering Provider: ISABEL ANAYA Report Released Date/Time: Jul 23, 2023 05:25 PM Reporting Lab: [facility] [place] [address] [address] Performing Lab: [facility] [address] [facility] [address] [place] CBC AND DIFF (AUTO) EOSINOPHIL S/100 LEUKOCYTES IN BLOOD BY AUTOMATED COUNT 3.1 0.4 - 6.8 08/06 Specimen Type: BLOOD No comment entered. Ordering Provider: ISABEL ANAYA Report Released Date/Time: Jul 23, 2023 05:25 PM Reporting Lab: [facility] [address] [address] Performing [facility]: [facility] [address] [address] [place] CBC AND DIFF (AUTO) BASOPHILS/ 100 LEUKOCYTES IN BLOOD BY AUTOMATED COUNT 1.6 0.1 - 2.0 08/06 Specimen Type: BLOOD No comment entered. Ordering Provider: ISABEL ANAYA Report Released Date/Time: Jul 23, 2023 05:25 PM Reporting Lab: [facility] [address] [address] Performing Lab[facility] [address] [address] [place] CBC AND DIFF (AUTO) NEUTROPHIL S [#/VOLUME] IN BLOOD BY AUTOMATED COUNT 4.04 10*3/uL 2.20 - 7.60 08/06 Specimen Type: BLOOD No comment entered. Ordering Provider: ISABEL ANAYA Report Released Date/Time: Jul 23, 2023 05:25 PM Reporting Lab[facility] [address] [address] Performing Lab: [facility] [address] [address] [place] CBC AND DIFF (AUTO) LYMPHOCYTE S [#/VOLUME] IN BLOOD BY AUTOMATED COUNT 1.27 10*3/uL 1.00 - 3.20 08/06 Specimen Type: BLOOD No comment entered. Ordering Provider: ISABEL ANAYA Report Released Date/Time: Jul 23, 2023 05:25 PM Reporting Lab: [facility] [address] [address] [address] Performing Lab: [facility] [address] [facility] [facility] [address] [place] CBC AND DIFF (AUTO) EOSINOPHIL S [#/VOLUME] IN BLOOD BY AUTOMATED COUNT 0.20 10*3/uL 0.03 - 0.44 08/06 Specimen Type: BLOOD No comment entered. Ordering Provider: ISABEL ANAYA Report Released Date/Time: Jul 23, 2023 05:25 PM Reporting Lab: [facility] [address] [address] Performing Lab: [facility] [address] [address] [place] CBC AND DIFF (AUTO) BASOPHILS [#/VOLUME] IN BLOOD BY AUTOMATED COUNT 0.10 10*3/uL 0.01 - 0.13 08/06 Specimen Type: BLOOD No comment entered. Ordering Provider: ISABEL ANAYA Report Released Date/Time: Jul 23, 2023 05:25 PM Reporting Lab: [facility] [address] [address] Performing Lab: [facility] [address] [address] [place] CBC AND DIFF (AUTO) IMMATURE GRANULOCYT ES/100 LEUKOCYTES IN BLOOD BY AUTOMATED COUNT 0.5 0.0 - 0.7 08/06 Specimen Type: BLOOD No comment entered. Ordering Provider: ISABEL ANAYA Report Released Date/Time: Jul 23, 2023 05:25 PM Reporting Lab: [facility] [address] [address] Performing Lab: [facility] [address] [address] [place] CBC AND DIFF (AUTO) IMMATURE GRANULOCYT ES [#/VOLUME] IN BLOOD 0.03 10*3/uL 0.00 - 0.06 08/06 Specimen Type: BLOOD No comment entered. Ordering Provider: ISABEL ANAYA Report Released Date/Time: Jul 23, 2023 05:25 PM Reporting Lab: [facility] [place] [facility] [address] [facility] [address] Performing Lab: [facility] [address] [facility] [address] [place] MICROSCO PIC AUTOMATE D, URINE LEUKOCYTES [#/AREA] IN URINE SEDIMENT BY MICROSCOPY HIGH POWER FIELD 0-5/[HPF ] 0 - 5 02/14 Specimen Type: URINE Comment: If Glucose = >500 and Ketones are positive, please alert the Physician. Ordering Provider: ANTONIO ACEVEDO Report Released Date/Time: Feb 14, 2023 02:48 PM Reporting Lab: [facility] [address] [facility] [address] Performing Lab: [facility] [address] [address] [place] MICROSCO PIC AUTOMATE D, URINE MUCUS [#/AREA] IN URINE SEDIMENT BY MICROSCOPY LOW POWER FIELD FEW/[LPF ] 02/14 Specimen Type: URINE Comment: If Glucose = >500 and Ketones are positive, please alert the Physician. Ordering Provider: ANTONIO ACEVEDO Report Released Date/Time: Feb 14, 2023 02:48 PM Reporting Lab: [facility] [address] [facility] [address] Performing Lab: [facility] [address] [facility] [address] [place] MICROSCO PIC AUTOMATE D, URINE HYALINE CASTS [#/AREA] IN URINE SEDIMENT BY MICROSCOPY LOW POWER FIELD TNTC/[LP F] 0 - 2 02/14 Specimen Type: URINE Comment: If Glucose = >500 and Ketones are positive, please alert the Physician. Ordering Provider: ANTONIO ACEVEDO Report Released Date/Time: Feb 14, 2023 02:48 PM Reporting Lab: [facility] [address] [facility] [facility] [address] Performing Lab: [facility] [address] [facility] [address] [place] MICROSCO PIC AUTOMATE D, URINE ERYTHROCYT ES [#/AREA] IN URINE SEDIMENT BY MICROSCOPY HIGH POWER FIELD 3-5/[HPF ] 0 - 3 02/14 Specimen Type: URINE Comment: If Glucose = >500 and Ketones are positive, please alert the Physician. Ordering Provider: ANTONIO ACEVEDO Report Released Date/Time: Feb 14, 2023 02:48 PM Reporting Lab: [facility] [place] [facility] [address] [facility] [address] Performing Lab: [facility] [place] [facility] [address] [facility] [address] [place] MICROSCO PIC AUTOMATE D, URINE EPITHELIAL CELLS.SQUA MOUS [#/AREA] IN URINE SEDIMENT BY MICROSCOPY HIGH POWER FIELD FEW/[HPF ] 02/14 Specimen Type: URINE Comment: If Glucose = >500 and Ketones are positive, please alert the Physician. Ordering Provider: ANTONIO ACEVEDO Report Released Date/Time: Feb 14, 2023 02:48 PM Reporting Lab: [facility] [place] [facility] [address] [facility] [facility] [address] Performing Lab: [facility] [place] [facility] [address] [facility] [address] [place] URINALYS IS CLEAN CATCH COLOR OF URINE Dark-Yel low 02/14 Specimen Type: URINE Comment: If Glucose = >500 and Ketones are positive, please alert the Physician. Ordering Provider: ANTONIO ACEVEDO Report Released Date/Time: Feb 14, 2023 02:48 PM Reporting Lab: [facility] [place] [facility] [address] [facility] [address] Performing Lab: [facility] [place] [facility] [address] [facility] [address] [place] URINALYS IS CLEAN CATCH APPEARANCE OF URINE Clear 02/14 Specimen Type: URINE Comment: If Glucose = >500 and Ketones are positive, please alert the Physician. Ordering Provider: ANTONIO ACEVEDO Report Released Date/Time: Feb 14, 2023 02:48 PM Reporting Lab: [facility] [place] [facility] [address] [facility] [address] Performing Lab: [facility] [place] [facility] [address] [facility] [address] [place] URINALYS IS CLEAN CATCH GLUCOSE [MASS/VOLU ME] IN URINE NEGATIVE mg/dL 02/14 Specimen Type: URINE Comment: If Glucose = >500 and Ketones are positive, please alert the Physician. Ordering Provider: ANTONIO ACEVEDO Report Released Date/Time: Feb 14, 2023 02:48 PM Reporting Lab: [facility] [address] [address] Performing Lab: [facility] [place] [address] [address] [place] URINALYS IS CLEAN CATCH KETONES [MASS/VOLU ME] IN URINE BY TEST STRIP TRACEmg/ dL 02/14 Specimen Type: URINE Comment: If Glucose = >500 and Ketones are positive, please alert the Physician. Ordering Provider: ANTONIO ACEVEDO Report Released Date/Time: Feb 14, 2023 02:48 PM Reporting Lab: [facility] [address] [address] Performing Lab: [facility] [place] [address] [address] [place] URINALYS IS CLEAN CATCH ERYTHROCYT ES [PRESENCE] IN URINE SEDIMENT BY LIGHT MICROSCOPY NEGATIVE mg/dL 02/14 Specimen Type: URINE Comment: If Glucose = >500 and Ketones are positive, please alert the Physician. Ordering Provider: ANTONIO ACEVEDO Report Released Date/Time: Feb 14, 2023 02:48 PM Reporting Lab: [facility] [place] [address] [address] Performing Lab: [facility] [address] [address] [place] URINALYS IS CLEAN CATCH PROTEIN [MASS/VOLU ME] IN URINE BY TEST STRIP 20 mg/dL 02/14 Specimen Type: URINE Comment: If Glucose = >500 and Ketones are positive, please alert the Physician. Ordering Provider: ANTONIO ACEVEDO Report Released Date/Time: Feb 14, 2023 02:48 PM Reporting Lab: [facility] [place] [address] [address] Performing Lab: [facility] [address] [address] [place] URINALYS IS CLEAN CATCH NITRITE [PRESENCE] IN URINE NEGATIVE mg/dL 02/14 Specimen Type: URINE Comment: If Glucose = >500 and Ketones are positive, please alert the Physician. Ordering Provider: ANTONIO ACEVEDO Report Released Date/Time: Feb 14, 2023 02:48 PM Reporting Lab: [facility] [address] [address] Performing Lab: [facility] [address] [address] [place] URINALYS IS CLEAN CATCH BILIRUBIN. TOTAL [PRESENCE] IN URINE NEGATIVE mg/dL 02/14 Specimen Type: URINE Comment: If Glucose = >500 and Ketones are positive, please alert the Physician. Ordering Provider: ANTONIO ACEVEDO Report Released Date/Time: Feb 14, 2023 02:48 PM Reporting Lab: [facility] [address] [address] Performing Lab: [facility] [address] [place] URINALYS IS CLEAN CATCH SPECIFIC GRAVITY OF URINE BY REFRACTOME TRY 1.043 1.016 - 1.022 02/14 H Specimen Type: URINE Comment: If Glucose = >500 and Ketones are positive, please alert the Physician. Ordering Provider: ANTONIO ACEVEDO Report Released Date/Time: Feb 14, 2023 02:48 PM Reporting Lab: [facility] [address] Performing Lab: [facility] [address] [place] URINALYS IS CLEAN CATCH PH OF URINE BY TEST STRIP 6.0 5.0 - 9.0 02/14 Specimen Type: URINE Comment: If Glucose = >500 and Ketones are positive, please alert the Physician. Ordering Provider: ANTONIO ACEVEDO Report Released Date/Time: Feb 14, 2023 02:48 PM Reporting Lab: [facility] [place] [facility] [address] [facility] [facility] [address] Performing Lab: [facility] [address] [facility] [address] [place] URINALYS IS CLEAN CATCH UROBILINOG EN [MASS/VOLU ME] IN URINE BY TEST STRIP <2.0mg/d L <2.0 - 2.0 02/14 Specimen Type: URINE Comment: If Glucose = >500 and Ketones are positive, please alert the Physician. Ordering Provider: ANTONIO ACEVEDO Report Released Date/Time: Feb 14, 2023 02:48 PM Reporting Lab: [facility] [address] Performing Lab: [facility] [address] [place] URINALYS IS CLEAN CATCH LEUKOCYTE ESTERASE [PRESENCE] IN URINE BY TEST STRIP NEGATIVE 02/14 Specimen Type: URINE Comment: If Glucose = >500 and Ketones are positive, please alert the Physician. Ordering Provider: ANTONIO ACEVEDO Report Released Date/Time: Feb 14, 2023 02:48 PM Reporting Lab: [facility] [address] [address] Performing Lab: [facility] [address] [address] [place] MICROALB UMIN CREATINI NE RATIO PANEL MICROALBUM IN/CREATIN INE [MASS RATIO] IN URINE 4.5 mg/g 0 - 29.9 02/09 Specimen Type: URINE No comment entered. Ordering Provider: ANTONIO ACEVEDO Report Released Date/Time: Feb 02, 2023 04:39 PM Reporting Lab: [facility] [place] [address] [address] Performing Lab: [facility] [address] [address] [place] MICROALB UMIN CREATINI NE RATIO PANEL MICROALBUM IN [MASS/VOLU ME] IN URINE 0.7 mg/dL 02/09 Specimen Type: URINE No comment entered. Ordering Provider: ANTONIO ACEVEDO Report Released Date/Time: Feb 02, 2023 04:39 PM Reporting Lab: [facility] [address] [facility] [facility] [address] Performing Lab: [facility] [address] [facility] [facility] [address] [place]CROALB UMIN CREATINI NE RATIO PANEL CREATININE [MASS/VOLU ME] IN URINE 154.29 mg/dL 02/09 Specimen Type: URINE No comment entered. Ordering Provider: ANTONIO ACEVEDO Report Released Date/Time: Feb 02, 2023 04:39 PM Reporting Lab: [facility] [address] [facility] [address] Performing Lab: [facility] [address] [facility] [address] [place] Vital Signs Combined list of inpatient and outpatient Vital Signs from Department of Defense and Veterans Affairs, ranging from 12 months to all on record, depending upon the facility. Vital Sign Value Date Comments Source SYSTOLIC BLOOD PRESSURE 128 03/06/2024 15:09:07 [place] DIASTOLIC BLOOD PRESSURE 74 03/06/2024 15:09:07 [place] PULSE OXIMETRY 98 03/06/2024 15:09:[facility] 212 03/06/2024 15:09:07 [place] BMI 28kg/m2 03/06/2024 15:09:07 [place] TEMPERATURE 97.6 03/06/2024 15:09:07 [place] PULSE 66 03/06/2024 15:09:07 [facility] SYSTOLIC BLOOD PRESSURE 124 08/15/2023 14:02:28 [place] DIASTOLIC BLOOD PRESSURE 79 08/15/2023 14:02:28 [place] PULSE OXIMETRY 97 08/15/2023 14:02:28 [place] WEIGHT 213 08/15/2023 14:02:28 [place] BMI 28kg/m2 08/15/2023 14:02:28 [place] PAIN 4 08/15/2023 14:02:28 [place] HEIGHT 73 08/15/2023 14:02:28 [place] TEMPERATURE 97.3 08/15/2023 14:02:28 [place] PULSE 66 08/15/2023 14:02:28 JULIETTE JENNINGS RESPIRATION 20 08/15/2023 14:02:28 [place] Encounters Combined list of: 1) Encounters from Department of Veterans Affairs facilities going back up to thelast 18 months. 2) Encounters from the Department of Defense facilities going back up to 280 months. Location Location Details Encounter Type Encounter Number Reason For Visit Attending Provider ADM Date DC Date Status Disposition Source [facility] En[facility] [id number] 12/26 [facility] [id number] 01/04 [facility] [id number] 01/05 [facility] En[facility] [id number] 01/05 [facility] En[facility] [id number] 01/08 [facility] [id number] 01/08 [facility] En[facility] [id number] RACHEL MILLER 01/15 [facility] En[facility] [id number] 01/22 [facility] En[facility] [id number] 01/22 [facility] En[facility] [id number] 01/26 [facility] En[facility] [id number] 01/30 [facility] En[facility] [id number] RACHEL MILLER 01/30 [facility] En[facility] [id number] 02/05 [facility] En[facility] [id number] RACHEL MILLER 02/05 [facility] OFFICE O/P EST MOD 30-39 MIN [id number] Diagnos is: ICD-10- CM L89.329 Pressur e ulcer of left buttock , unspeci fied stage<b r/> HILLARY ACEVEDO HUSSEIN S 02/14 [facility] [place] Outpatient Encounter [id number] 02/25 [place] [facility] En[facility] [id number] RACHEL MILLER 03/01 [facility] En[facility] [id number] 03/09 [facility] En[facility] [id number] 03/13 [facility] En[facility] [id number] 03/16 [facility] En[facility] [id number] 04/12 [facility] En[facility] [id number] 04/12 [facility] En[facility] [id number] 04/13 [facility] En[facility] [id number] 04/16 [facility] En[facility] [id number] 05/08 [facility] En[facility] [id number] 05/08 [facility] En[facility] [id number] 05/22 [facility] En[facility] [id number] 06/29 [facility] En[facility] [id number] 07/19 [facility] En[facility] [id number] 07/20 [facility] OFFICE O/P EST MOD 30 MIN [id number] Diagnos is: ICD-10- CM R60.9 Edema, unspeci fied
MIROSLAVA ANAYA 08/14 [facility] [place] [facility] En[facility] [id number] 08/20 [facility] En[facility] [id number] 09/25 [facility] Encounter [id number] 11/01 [facility] En[facility] [id number] 11/06 [facility] En[facility] [id number] 11/15 [facility] Encounter [id number] 11/17 [facility] En[facility] [id number] 11/18 [facility] Encounter [id number] 11/18 [facility] Encounter [id number] 11/19 [facility] Encounter [id number] 11/21 [facility] Outpatient Encounter [id number] 11/22 [facility] [place] Outpatient Encounter [id number] 11/26 [place] OFFICE O/P NEW LOW 30 MIN [id number] Diagnos is: ICD-10- CM 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
MIN SWEET ES F 12/18 [place] [facility] Outpatient Encounter [id number] 01/28 [facility] [facility] [place] DIABETIC CUSTOM MOLDED SHOE [id number] Diagnos is: ICD-10- CM 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
PAONELIA BUSTOS E L 02[facility]14 [facility] MIN [id number] Diagnos is: ICD-10- CM E11.9 Type 2 diabete s mellitu s without complic ations< br/> RONNIEDA VID A 03/06 [place] [facility] ADMN SARSCOV2 VACC 1 DOSE [id number] RONNIEDA VID A 03/06 [facility] [place] [facility] Outpatient Encounter [id number] 05/26 [facility] [facility] Social History Combined list of available smoking, tobacco, and other social history from Department of Defense and Veterans Affairs facilities. Social History Type Response Date Comment [facility] e Tobacco smoking status [facility] VA-TOBACCO NEVER USED 03/06/2024 [facility] History of tobacco use VA-TOBACCO NEVER USED 02/14/2023 [facility] D History of tobacco use VA-TOBACCO NEVER USED 01/27/2022 [facility] D History of tobacco use VA-TOBACCO NEVER USED 01/27/2021 [facility] History of tobacco use VA-TOBACCO NEVER USED 11/08/2017 [facility] D History of tobacco use LIFETIME NON-TOBACCO USER 11/08/2017 [facility] History of tobacco use LIFETIME NON-TOBACCO USER 11/08/2016 [facility] History of tobacco use LIFETIME NON-TOBACCO USER 10/21/2015 [facility] History of tobacco use LIFETIME NON-TOBACCO USER 09/10/2012 [facility] Plan of Care List of future care activities from Department of Veterans Affairs facilities. Additional future care activities may be listed in the Assessment and Plan section. Date/Time Care Activity Care Activity Detail Facili ty 07/17/2024 AMBULATORY - MEDICINE AMBULATORY - MEDICI [facility]
--- OUTSIDE RECORDS SUMMARY | 2024-05-29 11:19 | XMS_ITS | Patient Health Record ---
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 Name Role Phone Marina MCDANIELS, Nubia Zelaya Primary Care Provider Un available Black, Sussy Unavailable [phone] Allergies No Known Allergies Reason For Referral [...] Problem Acquired hammer toe of right foot (0346897945930247) Other hammer toe(s) (acquired), right foot (M20.41) Active confirmed Problem Acquired hammer toe of left foot (7623073894215796) Other hammer toe(s) (acquired), left foot (M20.42) Active confirmed Problem Ulcer of toe (288726422) Non-pressure chronic ulcer of other part of left foot limited to breakdown of skin (L97.521) Active confirmed Problem Nonstageable pressure ulcer of left foot (47114161833334605) 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) Active confirmed Problem [id number] 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) Active confirmed Problem Acquired hammer toe of left foot (4520307558500809) Other hammer toe(s) (acquired), left foot (M20.42) Active confirmed Problem Polyneuropathy due to type 2 diabetes mellitus (832655531) Type 2 diabetes mellitus with diabetic polyneuropathy (E11.42) Active confirmed Problem 369399276 Hammer toe of left foot (M20.42) Active [...] Ordered Date Performed Result Body Sit e 11633-LVKDKYD NAIL, 6 OR MORE 06/21/2023 N/A 25804-Qrevcrmp Plate 06/21/2023 N/A 99860-IMXQ SKIN LESIONS, OVER 4 06/21/2023 N/A 37995-IATNYGO NAIL, 6 OR MORE 10/25/2023 N/A 61231-VBNQ SKIN LESIONS, OVER 4 10/25/2023 N/A 45236-NLFRGWF NAIL, 6 OR MORE 02/14/2024 N/A 52838- Debride <25 sq cm 02/14/2024 N/A 60774-WZAH SKIN LESIONS, OVER 4 02/14/2024 N/A Encounters Encounter Location Date Provider Diagnosis [address] [address] 06/21/2023 Sussy Lowery Type 2 diabetes mellitus with diabetic polyneuropathy E11.42 ; Tinea unguium B35.1 and Ingrown nail L60.[address] [address] 10/25/2023 Sussyjesus Lowery Type 2 diabetes mellitus with diabetic polyneuropathy E11.42 ; Tinea unguium B35.1 ; Other hammer toe(s) (acquired), left foot M20.42 and Other hammer toe(s) (acquired), right foot M20.[address] [address] 11/19/2023 Sussy Lowery 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 and Type 2 diabetes mellitus with diabetic polyneuropathy E11.[address] [address] 02/14/2024 Sussy Lowery 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 ; Other hammer toe(s) (acquired), right foot M20.41 ; Type 2 diabetes mellitus with diabetic polyneuropathy E11.42 ; Tinea unguium B35.1 and Other hammer toe(s) (acquired), left foot M20.[address] [address] 11/19/2023 Sussy Lowery Assessments Encounter Date Diagnosis (ICD Code) Assessment Notes Treatment Notes Treatment Clinical Notes Section Notes 06/21/2023 Tinea unguium (ICD-10 - B35.1) 06/21/2023 Type 2 diabetes mellitus with diabetic polyneuropathy (ICD-10 - E11.42) 10/25/2023 Type 2 diabetes mellitus with diabetic polyneuropathy (ICD-10 - E11.42) 11/19/2023 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 breakdown of skin (ICD-10 - L97.421) [facility] care center 11/19/2023 Type 2 [...] Date *Wound Culture 12/18/2019 *Wound Culture 11/24/2021 44808-UEQXBOY NAIL, 6 OR MORE 08/25/2021 87814-IYBAIGB NAIL, 6 OR MORE 12/18/2019 88413-TDUJWSI NAIL, 6 OR MORE 11/24/2021 33274-EWQCRVF NAIL, 6 OR MORE 02/23/2022 08411-HWDSEYV NAIL, 6 OR MORE 06/08/2022 77393-IHHLYFG NAIL, 6 OR MORE 09/11/2022 88839-OJCQEPU NAIL, 6 OR MORE 12/11/2022 73851-OIAVMYI NAIL, 6 OR MORE 09/18/2019 66710-VUARANF NAIL, 6 OR MORE 02/23/2020 53453-IIKUBDL NAIL, 6 OR MORE 05/13/2020 16230-DJORIJW NAIL, 6 OR MORE 08/12/2020 51658-TAPNAFR NAIL, 6 OR MORE 11/18/2020 08153-LUUOOLZ NAIL, 6 OR MORE 02/17/2021 85007-MUBGDFD NAIL, 6 OR MORE 03/15/2023 08809-VIEPMQD NAIL, 6 OR MORE 06/21/2023 69178-YPHVASI NAIL, 6 OR MORE 10/25/2023 91236-POMHEXP NAIL, 6 OR MORE 02/14/2024 38305-TWMWAEU NAIL, 6 OR MORE 03/06/2019 24574-ADKIMWT NAIL, 6 OR MORE 06/05/2019 44138-LRMOPML NAIL, 6 OR MORE 02/21/2018 43345-VHXGIKV NAIL, 6 OR MORE 05/30/2018 14438-MPDTHMK NAIL, 6 OR MORE 08/29/2018 69592-ZTQDGGF NAIL, 6 OR MORE 12/05/2018 77101-UYPDQER NAIL, 6 OR MORE 12/22/2015 07531-OAMHADF NAIL, 6 OR MORE 03/23/2016 93077-ZHBYGEU NAIL, 6 OR MORE 06/22/2016 76406-XFRUAUT NAIL, 6 OR MORE 10/05/2016 59981-XDBVEFK NAIL, 6 OR MORE 01/04/2017 37622-VQHIMFP NAIL, 6 OR MORE 05/10/2017 67505-LLBMULI NAIL, 6 OR MORE 08/09/2017 37561-JSHDXWT NAIL, 6 OR MORE 11/23/2017 20958-WISSJTP NAIL, 6 OR MORE 04/17/2011 72123-POIIYRN NAIL, 6 OR MORE 07/20/2011 02071-SHCPWUL NAIL, 6 OR MORE 08/17/2011 29308-OCJNWPZ NAIL, 6 OR MORE 09/19/2011 09756-IWNKUNX NAIL, 6 OR MORE 12/25/2011 92213-HXMWKJA NAIL, 6 OR MORE 03/13/2012 55751-DPSVBIL NAIL, 6 OR MORE 06/19/2012 14549-XTORBFV NAIL, 6 OR MORE 09/16/2012 66725-RPTJZOA NAIL, 6 OR MORE 12/04/2012 61979-QIREXIR NAIL, 6 OR MORE 03/12/2013 23998-EYIPAHW NAIL, 6 OR MORE 06/18/2013 87220-XDKWVQE NAIL, 6 OR MORE 09/18/2013 39919-LWCCHYF NAIL, 6 OR MORE 12/18/2013 29807-BEZWCSO NAIL, 6 OR MORE 03/19/2014 80890-TSZQNGG NAIL, 6 OR MORE 09/17/2014 45484-VWIJAXD NAIL, 6 OR MORE 12/17/2014 62885-HECFGGL NAIL, 6 OR MORE 06/18/2014 83880-ABZUWTT NAIL, 6 OR MORE 03/24/2015 42380-GALCGOS NAIL, 6 OR MORE 06/17/2015 34923-EGUUJGM NAIL, 6 OR MORE 09/16/2015 45578-Dmwdxuyu Plate 06/18/2014 36376-Roljrevn Plate 12/17/2014 86404-Cyoekdwt Plate 12/18/2013 59810-Ggeseknq Plate 09/18/2013 10654-Rzhovnca Plate 03/12/2013 85137-Brltwivd Plate 01/04/2017 80276-Qfoccazc Plate 06/21/2023 21976- Debride <25 sq cm 02/14/2024 01465- Debride <25 sq cm 08/25/2021 43413- Debride <25 sq cm 08/12/2020 27434- Debride <25 sq cm 04/05/2020 50911- Debride <25 sq cm 05/13/2020 19842- Debride <25 sq cm 02/23/2020 51919- Debride <25 sq cm 06/08/2022 65897- Debride <25 sq cm 11/24/2021 33592- Debride <25 sq cm 12/08/2021 67710- Debride <25 sq cm 01/05/2022 47160- Debride <25 sq cm 02/23/2022 23737- Debride <25 sq cm 12/04/2012 27438- Debride <25 sq cm 12/25/2011 40349- Debride <25 sq cm 09/19/2011 47485- Debride <25 sq cm 08/17/2011 11269- Debride <25 sq cm 07/20/2011 33570- Debride <25 sq cm 12/18/2013 12934- Debride <25 sq cm 03/19/2014 13034-SHKCMUT SKIN/TISSUE 12/18/2019 03461-ORAESYP SKIN/TISSUE 01/05/2020 27800-FNVGXHY SKIN/TISSUE 01/19/2020 10601-JMSXLFX SKIN/TISSUE 02/05/2020 53779-KCRP SKIN LESIONS, OVER 4 09/18/19 01976-DMJG SKIN LESIONS, OVER 4 06/05/19 66218-MFDK SKIN LESIONS, OVER 4 03/06/20 33900-ARSM SKIN LESIONS, OVER 4 12/06/19 35247-ZGZK SKIN LESIONS, OVER 4 08/30/19 04271-BDIX SKIN LESIONS, OVER 4 05/30/19 23720-SSZR SKIN LESIONS, OVER 4 01/05/20 55463-DZZZ SKIN LESIONS, OVER 4 02/22/20 18 97893-EMBY SKIN LESIONS, OVER 4 11/24/19 18 97455-QAQL SKIN LESIONS, OVER 4 05/10/20 38931-PWYW SKIN LESIONS, OVER 4 08/10/19 18 84394-EADL SKIN LESIONS, OVER 4 02/24/20 93428-RDPA SKIN LESIONS, OVER 4 11/25/19 72331-SEES SKIN LESIONS, OVER 4 06/08/19 61281-FZFE SKIN LESIONS, OVER 4 09/12/19 46829-OVSJ SKIN LESIONS, OVER 4 03/15/20 02775-IDVH SKIN LESIONS, OVER 4 12/12/19 58305-PTVV SKIN LESIONS, OVER 4 02/23/20 20 64452-DGKQ SKIN LESIONS, OVER 4 12/18/19 92597-UHMM SKIN LESIONS, OVER 4 05/13/20 51774-EOSN SKIN LESIONS, OVER 4 08/13/19 86225-BIOE SKIN LESIONS, OVER 4 11/19/19 56565-BEEP SKIN LESIONS, OVER 4 08/26/19 79039-FQGO SKIN LESIONS, OVER 4 02/18/20 83330-QSVG SKIN LESIONS, OVER 4 02/14/20 75462-IWSO SKIN LESIONS, OVER 4 06/21/19 70470-CAVL SKIN LESIONS, OVER 4 10/25/19 24 12542-IKJB SKIN LESIONS, 2 TO 4 06/22/19 17 88537-SAXK SKIN LESIONS, 2 TO 4 05/11/20 17 48890-BBBD SKIN LESIONS, 2 TO 4 03/23/20 16 61235-RYKC SKIN LESIONS, 2 TO 4 12/22/19 16 27964-JBCN SKIN LESIONS, 2 TO 4 12/18/19 15 88251-DYIM SKIN LESIONS, 2 TO 4 03/24/20 15 07105-UDZL SKIN LESIONS, 2 TO 4 09/16/19 16 68847-EBAW SKIN LESIONS, 2 TO 4 06/17/19 16 Next Appt Details Provider Name:Sussy Lowery , 06/02/2024 04:00:00 PM, [address] [place], [address], Insurance Providers Payer Name Payer Address Payer Phone Subscriber Number Group Number Insured Name Patient Relationship to Insured Coverage Start Date Coverage End Date Medicare National Govt [facility] [address] [place] [address] [id number] Tobin Bey Self - patient is the insured AARP Secondary to Medicare [address] [place] [address] [id number] Tobin Bey Self - patient is the insured Medical (General) History Medical History History ICD Code reflux mumps measles chicken pox hypertension diabetes mellitus Macular degeneration Surgical History Surgery Date(Month/Year) cataract removal left total hip replacement 02/23/2015 R shoulder replacement 03/27/2017
--- NOTE | 2024-05-29 11:21 | A.OFFVIS_ITS ---
Intake Vital Signs 05/29/24 11:29 Height 5 ft 11 in Weight 215 lb BMI 30.0 BP 136/78 Blood Pressure Location Rt brachial Position Sitting Pulse 97 Pulse Source Pulse Oximeter Pulse Oximetry (%) 99 Oxygen Delivery Method Room Air Intake Visit Reasons: SWV G0439 Intake Note: Pt is here today for his SWV: Last colonoscopy 11/19/19 Allergies No Known Allergies Allergy (Verified 05/29/24 12:32) Medication List - Last Reconciled 05/29/24 by Nubia Gray MD ammonium lactate 12% appl topical BID ascorbic acid (vitamin C) (Vitamin C) 1,000 mg PO DAILY blood sugar diagnostic (FreeStyle Lite Strips) check fasting blood sugar once a day blood-glucose meter (FreeStyle Lite Meter kit) check fasting blood sugar once a day [coQ10 (ubiquinol) ] ferrous sulfate 325 mg PO DAILY glucosamine-chondroitin 250-200 mg (Osteo Bi-Flex) 2 tabs PO TID lancets As directed lancets (Accu-Chek Fastclix Lancet Drum) Check blood sugar 3 times a day as directed lidocaine 5% 1 patch topical DAILY losartan 100 mg PO DAILY [magnesium ] metformin 1,000 mg PO BID metoprolol tartrate 100 mg PO DAILY multivitamin 1 tab PO DAILY mupirocin 2% 1 appl topical BEDTIME rosuvastatin 10 mg PO .QSATURDAY semaglutide (Ozempic) 1 mg subcut QWEEK spironolactone 25 mg PO DAILY tacrolimus 0.1% topical DAILY triamcinolone acetonide 0.1% topical PRN HPI SWV G0439 HPI Details SWV ? 78 year old male presents for his subsequent annual wellness visit. He has Diabetes mellitus with chronic wound on both buttocks and left heel ulcer followed at [facility] wound [facility] and by Dr Sussy Lowery, hypertension, dyslipidemia and osteoarthritis He is up-to-date with his lipids and diabetes mellitus ffup, last fasting labs 05/23/24 with normal lipids and HBA1c at 5.8 %. He is due for his screening colonoscopy, last done 11/19/2019 with removal of a tubular adenoma, referred back to Dr Pimentel for his follow up colonoscopy.. He goes to [facility] for his diabetes retinopathy screening and regular eye exam,has appointment already scheduled with Dr Fowler. He has primary Osteoarthritis of right hip, seen and evaluated by [facility] orthopedics, and given the extent of the ulcerations and his diabetes, this does put him at a higher risk of infection. It would be in the patients best interest to post pone the surgery until the ulcers are 100% healed to lower the risk of complications as much as possible. He is up-to-date with his prostate cancer screening, last done 07/19/2023, with normal PSA result. Up-to-date with his record 8 yearly flu shots, Tdap, Prevnar 13 and Shingrix vaccination, due for his Prevnar 20. ? Medical / Social History Reviewed? Past Medical History ?Yes . ? [place] of Care / Care Team list updated ?Yes . ? Surgical/Hospitalization History ?Yes . ? Current Medications (including OTC and supplements) ?Yes . ? Family History ?Yes . ? Tobacco Control form ?Yes . ? AUDIT-C (Alcohol use) form ?Yes . ? Illicit drug use in Social History ?Yes . ? Current diagnosis of depression? ?No ? Appropriate PHQ2/PHQ9 completed ?Yes . ? Data entered by ?Fire Marshal and reviewed by provider ? Fall Risk ? Fall History? Have you had any falls with injury in the past year? ?No . ? Have you had two or more falls in the past year? ?No . ? Fall Risk Assessment: ?No falls in the past year . ? HRA filled out by the patient, reviewed by Provider and scanned. ?AWV ? Balance? Romberg negative ? Tandem walk ?unable due to pain in his right thigh, uses a cane . ? Walk and Turn ?Yes . ? Rise from sit to stand ?Yes . ?Vision? Corrective lens ?Yes ? Vision screen ? Up-to-date, sees Dr. Fowler ?Hearing? Whisper test ?pass . ?Written Plan?Completed. See Patient Documents.? [facility] Medical History (Updated 05/29/24 @ 13:01 by Nubia Gray MD) Ulcer of left heel Chronic ulcer of buttock Hx of adenomatous polyp of colon Tinea unguium Anemia Elevated vitamin B12 level Osteoarthritis of left hip Dyslipidemia Eczema Essential hypertension Type 2 diabetes mellitus without complication, without long-term current use of insulin Surgical History Hx of colonoscopy History of cataract surgery H/O shoulder replacement History of total hip replacement Family History Father Smoker Emphysema, unspecified Mother HTN (hypertension) Diabetes mellitus Cancer Brother Diabetes mellitus Social History Housing: House Are you a primary personal care worker to a significant other at home: No Do you presently have visiting nurse or other home services: No Alcohol intake: current Patient Tobacco Use Status: Never used Tobacco e-Cigarette/Vaping Use: Never Used service: No Current occupational status: retired Cognitive needs: No Hearing needs: No Vision needs: No Questionnaire Medicare Wellness Checkup [age] What gender do you identify with?: male During the past 4 weeks, how much have you been bothered by emotional problems such as feeling anxious, depressed, irritable, sad or downhearted, and blue?: extremely During the past 4 weeks, has your physical & emotional health limited your social activities with family, friends, neighbors, or groups?: extremely During the past 4 weeks, how much bodily pain have you generally had?: moderate pain During the past 4 weeks, was someone available to help you if you needed & wanted help?: yes, some During the past 4 weeks, what was the hardest physical activity you could do for at least 2 minutes?: very light Can you get to places out of walking distance without help? (For eg., can you travel alone on buses, taxis or drive your car?): Yes Can you go shopping for groceries or clothes without someone's help?: Yes Can you prepare your own meals?: Yes Can you do your housework without help?: Yes Because of any health problems, do you need the help of another person with your personal care needs such as eating, bathing, dressing or getting around the house?: No Can you handle your own money without help?: Yes During the past 4 weeks, how would you rate your health in general?: poor During the past 4 weeks how have things been going for you?: pretty well Are you having difficulties driving your car?: no Do you always fasten your seat belt when you are in a car?: yes, usually During past 4 weeks, have you been bothered by the following: never: Falling or dizzy when standing up, Sexual problems?, Teeth or denture problems? and Problems using the telephone? and sometimes: Trouble eating well? and Tiredness or fatigue? Have you fallen 2 or more times in the past year?: No Are you afraid of falling?: Yes Are you a smoker?: no During the past 4 weeks, how many drinks of wine, beer, or other alcoholic beverages did you have?: 1 drink or less per week Do you exercise for about 20 minutes 3 or more times a week?: no, I usually do not exercise this much Have you been given information to help with the following?: no: Hazards in your house that might hurt you? and no: Keeping track of your medications? How often do you have trouble taking medicines the way you have been told to take them?: I do not have to take medicine How confident are you that you can control & manage most of your health problems?: somewhat confident What is your race?: White Mini Mental State Exam (MMSE) Orientation What is the (year) (season) (date) (day) (month)?: year (2024), season (), date (05/29/2024), day () and month (may) Where are we (state) (county) (town or city) (hospital) (floor)?: state ([facility]), county ([place]), town or city ([place]) and hospital/clinic ([facility]) Score Score: 9 Activity of Daily Living Bathing - sponge bath, tub bath or shower: receives no assistance (gets in/out by self, if usual bathing means Dressing - getting clothes from closets & drawers, including inner/outer garments & fasteners.: gets clothes & gets completely dressed without help Toileting - going to the 'toilet room' for urine/bowel elimination & cleaning self/arranging clothes: goes to toilet room, cleans self, arranges clothes without help Transfer: moves in & out of bed and chair without help (may use support object) Continence: controls urination/bowel movements completely by self Feeding: feeds self without help Total Score: 0 Information obtained from: patient Using telephone: independent Traveling: independent Shopping: independent Preparing meals: independent Housework: independent Taking medicine: independent Managing money: independent PHQ-9 Over the last 2 weeks, how often have you been bothered by any of the following problems? 1. Little interest or pleasure in doing things: several days 2. Feeling down, depressed, or hopeless: not at all 3. Trouble falling or staying asleep, or sleeping too much: several days 4. Feeling tired or having little energy: more than half the days 5. Poor appetite or overeating: not at all 6. Feeling bad about yourself - or that you are a failure or have let yourself or your family down: several days 7. Trouble concentrating on things, such as reading the newspaper or watching television: not at all 8. Moving or speaking so slowly that other people could have noticed. Or the opposite - being so fidgety or restless that you have been moving around a lot m ore than usual: not at all 9. Thoughts that you would be better off or of hurting yourself in some way: not at all Total score: 5 Depression Screening Interpretation: Negative Depression Screening Done: Yes 89112 - PHQ-9 Billing: Yes Source: Developed by Drs. Unruly Figueroa, Mey Ramírez, John Wagner and colleagues, with an educational christina from [employer]. Physical Exam Vital Signs: Last Vital Signs Pulse 97 05/29/24 11:29 BP 136/78 05/29/24 11:29 Pulse Ox 99 05/29/24 11:29 Oxygen Delivery Method Room Air 05/29/24 11:29 BMI result Body Mass Index 30.0 Results Reviewed Results Reviewed: Laboratory Tests 11/16/23 05/23/24 07:41 08:12 Estimat Average Glucose 120 Hemoglobin A1c % 5.8 Urine Creatinine 69.37 Urine Microalbumin 5.0 Microalb/Creat Ratio 7.2 Name: Tobin Bey Age/Sex: 78/M : 1945 Unit#: [id number] Attend Dr: Nubia Gray MD Re05/23/24 Status: DEP REF Location: [facility] Disch: SPEC : [id number] UZMA: 05/23/24 STATUS: COMP REQ : [id number] RECD: 05/23/[address]: Nubia Gray MD COMP: 05/23/24 ENTERED: 05/23/[address]: ORDERED: Met Prof Fast, IRON PROF, AST, ALT, Lipid Panel Test Result Flag Reference Sodium 138 135-145 mmol/L Potassium 3.8 3.3-5.1 mmol/L CL 101 96-108 mmol/L CO2 27 22-29 mmol/L Gap 14 12-20 BUN 18 H 9-16 mg/dL Creat 0.98 0.5-1.4 mg/dL eGFR > 60 Chronic Kidney Disease: Estimated GFR < 60 mL/min/1.73m2 Severe Kidney Disease: Estimated GFR < 15 mL/min/1.73m2 FBS 121 H 60-99 mg/dL A fasting glucose from 100-125 mg/dl is considered impaired (pre-diabetes). CA 9.0 8.4-10.2 mg/dL Iron 81 45-160 mcg/dL TIBC 270 228-428 mcg/dL Saturation 30 15-50 % UIBC 189 ug/dL AST (GOT) 19 5-37 U/L ALT (GPT) 10 0-40 U/L Triglyceride 146 <150 mg/dL Desirable Triglyceride: less than 150 mg/dL Borderline High Triglyceride 150-199 mg/dL High Triglyceride: 200-499 mg/dL Very High Triglyceride: greater than or equal to 5OO mg/dL Cholesterol 139 <200 mg/dL Desirable Cholesterol: less than 200 mg/dL Borderline High Cholesterol: 200-239 mg/dL High Cholesterol: greater than 239 mg/dL LDL Calculated 62 <100 mg/dL Desirable LDL: less than 100 mg/dL Near Optimal/Above Optimal LDL: 110-129 mg/dL Borderline High LDL: 130-159 mg/dL High LDL: 160-189 mg/dL Very High LDL: greater than or equal to 190 mg/dL HDL 48 >40 mg/dL Desirable HDL: greater than 40 mg/dL Note: This HDL assay may give artificially low results in patients with liver disease. Assessment & Plan Assessment & Plan (1) Encounter for subsequent annual wellness visit (AWV) in Medicare patient: Code(s): Z00.00 - Encounter for general adult medical examination without abnormal findings Plan: Medical wellness checklist reviewed, discussed with patient and updated. Up-to-date with all his vaccines. (2) Hx of adenomatous polyp of colon: Code(s): Z86.0101 - Personal history of adenomatous and serrated colon polyps Plan: Referral back to Dr. Pimentel for his repeat colonoscopy, due this year (3) Ulcer of left heel: Code(s): L97.429 - Non-pressure chronic ulcer of left heel and midfoot with unspecified severity Qualifiers: Non-pressure ulcer stage: unspecified non-pressure ulcer stage Qualified Code(s): L97.429 - Non-pressure chronic ulcer of left heel and midfoot with unspecified severity Plan: Currently followed by Podiatry, Dr. Lowery (4) Chronic ulcer of buttock: Code(s): L98.419 - Non-pressure chronic ulcer of buttock with unspecified severity Plan: Currently seeing [facility] wound care clinic and has been referred to dermatology (5) Dyslipidemia: Code(s): E78.5 - Hyperlipidemia, unspecified Plan: Latest fasting labs showed lipids within normal limits, currently taking rosuvastatin 10 mg every Sunday (6) Essential hypertension: Comment: ff'd by dr madsen Code(s): I10 - Essential (primary) hypertension Plan: Blood pressure stable and controlled, continued on losartan, metoprolol tartrate and spironolactone (7) Type 2 diabetes mellitus without complication, without long-term current use of insulin: Code(s): E11.9 - Type 2 diabetes mellitus without complications Plan: Hemoglobin A1c now at 5.8%. Currently PICC 1 mg once a week, in addition to metformin a 1000 mg 1 tablet twice a day, new prescription sent for freestyle Lite meter (8) Primary osteoarthritis of right hip: Code(s): M16.11 - Unilateral primary osteoarthritis, right hip Plan: Was seen by Dr. Land, who advised to postpone right total hip arthroplasty until wound in buttocks has completely healed Orders: Referrals Gastroenterology Referral Z86.0101 - Personal history of adenomatous and serrated colon polyps Medications: Refilled blood-glucose meter (FreeStyle Lite Meter kit) check fasting blood sugar once a day 1 ea 0RF E11.9 - Type 2 diabetes mellitus without complications Quality Reporting (2019) Depression/Bipolar (159/160/161/177) PHQ-9: Total score: 5 Coding Level of Care Code Medicare Subsequent (G0439) Diagnoses Encounter for subsequent annual wellness visit (AWV) in Medicare patient Z00.00 Hx of adenomatous polyp of colon Z86.0101 Heel ulceration, left, with unspecified severity L97.429 Non-pressure ulcer stage: unspecified non-pressure ulcer stage Chronic ulcer of buttock L98.419 Dyslipidemia E78.5 Essential hypertension I10 Type 2 diabetes mellitus without complication, without long-term current use of insulin E11.9 Primary osteoarthritis of right hip M16.11 Additional Codes PHQ-9 - 05022 - PHQ-9 Billing: Yes ([id number])
--- OUTSIDE RECORDS SUMMARY | 2024-05-29 11:21 | XMS_ITS ---
Author Name [facility] [place] [facility] [place] Organization [facility] [place] [facility] [place] Address [address] [place] [address] Care Team Providers Care Manufacturing Engineer Chief Name Role Phone ELISSA TRUJILLO Primary Care [...] PLAN MEDICARE SUPPLEMEN MARIEL Apr 27, 2012 [facility] [id number] ELIZABETH AMOS UL PATIENT AARP MED [facility] MEDICARE SUPPLEMEN MARIEL Apr 27, 2012 [facility] [id number] [phone] ELIZABETH AMOS UL PATIENT MEDICARE (WNR) MEDICARE (M) PART A 2011 PART A [id number] ELIZABETH AMOS UL PATIENT MEDICARE (WNR) MEDICARE (M) PART B 2011 PART B [id number] ELIZABETH AMOS UL PATIENT Selected Encounter This section includes the information on record at [place] for the Encounter. Date/Time Encounter Type Encounter Description Reason Pro vider Source May 26, 2024 08:46 AM Outpatient Encounter PRIMARY CARE/MEDICINE IHE Encounter Template Text not used by [place] Plan of Treatment: Future Appointments (+ 6 months) and Future Tests (+/- 45 days) The Plan of Treatment section includes future care activities for the patient from all [place] [facility] This section includes future appointments and future orders which are active, pending or scheduled. Future Appointments This section includes appointments that were scheduled to occur 6 months from the date of the Encounter, up to a maximum of 20 appointments. The data comes from all [place] treatment facilities. Appointment Date/Time Appointment Type Appointme nt Facility Name Jul 17, 2024 02:30 PM AMBULATORY - MEDICINE [facility] Social History: Smoking Status (Most current) and Tobacco Use (All prior to encounter date) This section includes the most current, and the historical, smoking and tobacco- related health factors from the [place] facility where the Encounter took place. Current Smoking Status This section includes the most current smoking, or tobacco-related health factor, from the [place] facility where the Encounter took place. Date/Time Current Smoking Status Comment Facil ity Mar 06, 2024 03:00 PM VA-TOBACCO NEVER USED [facility] Tobacco Use History This section includes a history of the smoking, or tobacco-related health factors, that were collected on or before the date of the Encounter. The data comes from the [place] facility where the Encounter took place. Date/Time Smoking Status/Tobacco Use Comment F acshaneka Jan 27, 2021 03:35 PM VA-TOBACCO NEVER USED [facility] Encounter Notes: All associated encounter notes This section contains the clinical notes associated to the Encounter. Date/Time Encounter Note(s) Provider Source May 26, 2024 08:46 AM ADDENDUM: LOCAL TITLE: Addendum STANDARD TITLE: ADDENDUM DATE OF NOTE: MAY 26, 2024@08:46:41 ENTRY DATE: MAY 26, 2024@08:46:43 AUTHOR: CLAUDIA GASTELUM EXP COSIGNER: URGENCY: STATUS: COMPLETED LAB REPORT HAS BEEN PLACED IN PACT TEAM RIGHT FAX FOLDER FOR REVIEW /med/ CLAUDIA GASTELUM ADVANCE STOCK RANCH SUPERVISOR Signed: 05/26/2024 08:47 Receipt Acknowledged By: 05/26/2024 10:50 /med/ BLAKE MCDONOUGH REGISTERED NURSE * AWAITING SIGNATURE * MITCHELL MARRUFO R === --- Original Document --- 05/26/24 PRIMARY CARE SECURE MESSAGING: ------Original Message ------ Sent: 05/23/2024 05:19 PM ET From: TOBIN AMOS To: Frantz TRUJILLO_PRIMARY CARE_[facility] Subject: Test:blood test from 05/23 Attachments: [email or web address] (130.47 KB) Can you please ad this blood test to my records Tobin Schafer /med/ CLAUDIA GASTELUM ADVANCE STOCK RANCH SUPERVISOR Signed: 05/26/2024 08:46 CLAUDIA GASTELUM [place] [facility] [place] [facility] May 26, 2024 08:46 AM PRIMARY CARE SECUR E MESSAGING: LOCAL TITLE: PRIMARY CARE SECURE MESSAGING STANDARD TITLE: PRIMARY CARE SECURE MESSAGING DATE OF NOTE: MAY 26, 2024@08:46 ENTRY DATE: MAY 26, 2024@08:46:31 AUTHOR: CLAUDIA GASTELUM EXP COSIGNER: URGENCY: STATUS: COMPLETED PRIMARY CARE SECURE MESSAGING Has ADDENDA ------Original Message ------ Sent: 05/23/2024 05:19 PM ET From: TOBIN AMOS To: Raúl TRUJILLOPRIMARY CARE_[facility] Subject: Test:blood test from 05/23 Attachments: [email or web address] (130.47 KB) Can you please ad this blood test to my records Tobin Schafer /med/ CLAUDIA GASTELUM ADVANCE STOCK RANCH SUPERVISOR Signed: 05/26/2024 08:46 05/26/2024 ADDENDUM STATUS: COMPLETED LAB REPORT HAS BEEN PLACED IN PACT TEAM RIGHT FAX FOLDER FOR INES /jeromy GASTELUM ADVANCE STOCK RANCH SUPERVISOR Signed: 05/26/2024 08:47 Receipt Acknowledged By: * AWAITING SIGNATURE * BLAKE MCDONOUGH * AWAITING SIGNATURE * MITCHELL MARRUFO,CLAUDIA CASTILLO [facility]
[2024-05-29 11:29] VITALS: BP 136/78; PULSE 97; O2SAT 99
== END 2024-05-29 12:11 | disposition home or self-care (01) ==
PROVIDERS: PCP Internal Medicine; Visit Provider Internal Medicine
DX: Z00.00 Encounter for general adult medical examination without abnormal findings (principal); E11.621 Type 2 diabetes mellitus with foot ulcer; L98.419 Non-pressure chronic ulcer of buttock with unspecified severity; L97.429 Non-pressure chronic ulcer of left heel and midfoot with unspecified severity; Z86.0101 Personal history of adenomatous and serrated colon polyps; E78.5 Hyperlipidemia, unspecified; I10 Essential (primary) hypertension; M16.11 Unilateral primary osteoarthritis, right hip

== ENCOUNTER → 2024-05-29 10:43 | Outpatient (BNVA) | payer MEDICARE, SELFPAY | PROVIDERS: PCP Internal Medicine; Visit Provider Internal Medicine | DX: Z00.00 Encounter for general adult medical examination without abnormal findings (principal); L97.429 Non-pressure chronic ulcer of left heel and midfoot with unspecified severity; L98.419 Non-pressure chronic ulcer of buttock with unspecified severity; E78.5 Hyperlipidemia, unspecified; I10 Essential (primary) hypertension; E11.9 Type 2 diabetes mellitus without complications; M16.11 Unilateral primary osteoarthritis, right hip; Z86.0101 Personal history of adenomatous and serrated colon polyps | CPT/HCPCS: 96127 ==

== ENCOUNTER 2024-07-08 16:00 | Outpatient (RCR) | payer MEDICARE, SELFPAY ==
--- NOTE | ~2024-07-08 | XR_ITS ---
EXAMINATION: XR FOOT, LEFT CLINICAL INFORMATION: Rule out osteomyelitis. Attention to the calcaneus. COMPARISON: None available. TECHNIQUE: AP, lateral, and oblique views of the left foot. FINDINGS: Small plantar and posterior calcaneal spurring. No erosive or destructive changes of the calcaneus are evident by x-ray. Question soft tissue swelling plantar to the calcaneus. Second-fifth hammertoe deformities. Hallux valgus. Mild first MTP arthritis. No visible acute fracture or dislocation. XR/XR foot LT min 3V IMPRESSION: No radiographic evidence of osteomyelitis. If there is clinical concern for osteomyelitis, consider MRI. Study is assigned for dictation on January 14, 2024. The report will be called to the ordering clinician by a [place] Radiology Physician Grinder And Honer Operator Automatic.
== END 2024-07-22 15:01 | disposition home or self-care (01) ==
LOC: HO.WCC 16:00
PROVIDERS: PCP Internal Medicine; Visit Provider Surgery
DX: E11.622 Type 2 diabetes mellitus with other skin ulcer (principal); L98.412 Non-pressure chronic ulcer of buttock with fat layer exposed; E11.620 Type 2 diabetes mellitus with diabetic dermatitis; I86.8 Varicose veins of other specified sites; Z79.899 Other long term (current) drug therapy
CPT/HCPCS: 11042; 11106; 73630; 88304; 97597; 97602; 99211; 99213; 99214

== ENCOUNTER 2024-08-29 07:03 | Outpatient (REF) | payer MEDICARE, SELFPAY ==
--- OUTSIDE RECORDS SUMMARY | 2024-08-29 07:06 | XMS_ITS | Encounter Summary ---
Author Name [facility] [place] Organization [facility] [place] [facility] [place] Address [address] [place] [address] Care Team Providers Care Sheet Roller Operator Name Role Phone ELISSA TRUJILLO Primary [...] Policy Daugherty's Name Patient's Relationship to Policy Daughetry AARP HEALTH PLAN MEDICARE SUPPLEMEN MARIEL Apr 27, 2012 PLAN [id number] ELIZABETH AMOS UL PATIENT AARP MED [facility] MEDICARE SUPPLEMEN MARIEL Apr 27, 2012 [facility] [id number] ELIZABETH AMOS UL PATIENT MEDICARE (WNR) MEDICARE (M) PART B 2011 PART B [id number] ELIZABETH AMOS UL PATIENT MEDICARE (WNR) MEDICARE (M) PART A 2011 PART A [id number] ELIZABETH AMOS UL PATIENT Selected Encounter This section includes the information on record at [place] for the Encounter. Date/Time Encounter Type Encounter Description Reason Pro vider Source Nov 27, 2023 01:30 PM Outpatient Encounter PRIMARY CARE/MEDICINE E Encounter Template Text not used by [place] Plan of Treatment: Future Appointments (+ 6 [...] 2023 02:00 PM AMBULATORY [facility] Feb 15, 2024 09:00 AM AMBULATORY - MEDICINE [place] [facility] [place] [place] [facility] Mar 06, 2024 03:00 PM [...] Padmini willingham Feb 14, 2023 01:30 PM [place]-TOBACCO NEVER USED [facility] Tobacco Use History This section includes a history of the smoking, or tobacco-related health factors, that were collected on or before the date of the Encounter. The data comes from the [place] facility where the Encounter took place. Date/Time Smoking Status/Tobacco Use Comment F magnus Jan 27, 2022 02:00 PM VA-TOBACCO NEVER USED [facility] Nov 08, 2017 10:02 AM [place]-TOBACCO NEVER USED [facility] Nov 08, 2017 08:55 AM LIFETIME NON-TOBACCO USER [facility] Nov 08, 2016 09:08 AM LIFETIME NON-TOBACCO USER [facility] October 21, 2015 02:24 PM LIFETIME NON-TOBACCO USER [facility] Sep 10, 2012 09:28 AM LIFETIME NON-TOBACCO USER [facility]
--- OUTSIDE RECORDS SUMMARY | 2024-08-29 07:06 | XMS_ITS | Encounter Summary ---
Author Organization [facility] Address [address] [place] [address] Care Team Providers Care Director Strategic Account Management Name Role Phone Jagjit Hancock Primary Care Provider Gigi price Encounter Details Date Type Department Care Team (Latest Contact Info) Description 08/08/2024 Lab Requisition [facility] - Main Lab [address] [place] [phone] Rebecca Gomez MD [address] [place] [phone] Essential (primary) hypertension; Anemia, unspecified; Cellulitis, unspecified; Type 2 diabetes mellitus without complications (CMS/HCC) Social History Tobacco Use Types Packs/Day Years Used Date Smoking Tobacco: Never Assessed Sex and Gender Information Value Date Recorded Sex Assigned at Not on file Legal Sex Male 3:28 AM EST Gender Identity Not on file Sexual Orientation Not on file documented as of this encounter Plan of Treatment Not on file documented as of this encounter Procedures Procedure Name Priority Date/Time Associated Diagnosis Comments COMPLETE BLOOD COUNT Routine 08/11/2024 6:40 AM EDT Essential (primary) hypertension Anemia, unspecified Cellulitis, unspecified Type 2 diabetes mellitus without complications (CMS/HCC) COMPREHENSIVE METABOLIC PANEL Routine 08/11/2024 6:40 AM EDT Essential (primary) hypertension Anemia, unspecified Cellulitis, unspecified Type 2 diabetes mellitus without complications (CMS/HCC) documented in this encounter Results * (ABNORMAL) Comprehensive metabolic panel (08/11/2024 6:40 AM EDT) [facility] Sodium 134 133 - 145 mmol/L LAB CHEMISTRY METHOD 08/11/2024 11:47 AM [facility] Potassium 3.7 3.5 - 5.5 mmol/L LAB CHEMISTRY METHOD 08/11/2024 11:47 AM [facility] Chloride 96 96 - 110 mmol/L LAB CHEMISTRY METHOD 08/11/2024 11:47 AM [facility] CO2 26 21 - 32 mmol/L LAB CHEMISTRY METHOD 08/11/2024 11:47 AM [facility] Anion Gap 12(H) 3 - 11 LAB CHEMISTRY METHOD 08/11/2024 11:47 AM [facility] Glucose 94 70 - 100 mg/dL LAB CHEMISTRY METHOD 08/11/2024 11:47 AM [facility] BUN 28(H) 5 - 25 mg/dL LAB CHEMISTRY METHOD 08/11/2024 11:47 AM [facility] Creatinine 1.09 0.70 - 1.30 mg/dL LAB CHEMISTRY METHOD 08/11/2024 11:47 AM [facility] eGFR 70 >=60 mL/min/1. 73m2 LAB CHEMISTRY METHOD 08/11/2024 11:47 AM [facility] Comment:Calculation based on the??Chronic Kidney Disease Epidemiology Collaboration (CKD-EPI) equation refit??without adjustment for race. BUN/Creatinine Ratio 25.7 LAB CHEMISTRY METHOD 08/11/2024 11:47 AM [facility] Calcium 9.3 8.5 - 10.5 mg/dL LAB CHEMISTRY METHOD 08/11/2024 11:47 AM [facility] AST (SGOT) 24 10 - 42 unit/L LAB CHEMISTRY METHOD 08/11/2024 11:47 AM [facility] ALT (SGPT) 25 10 - 60 unit/L LAB CHEMISTRY METHOD 08/11/2024 11:47 AM EDT [facility] Alkaline Phosphatase 86 42 - 121 unit/L LAB CHEMISTRY METHOD 08/11/2024 11:47 AM EDT [facility] Total Protein 6.8 6.0 - 8.0 g/dL LAB CHEMISTRY METHOD 08/11/2024 11:47 AM [facility] Albumin 3.3 3.2 - 5.0 g/dL LAB CHEMISTRY METHOD 08/11/2024 11:47 AM EDT [facility] Total Bilirubin 0.5 0.0 - 1.4 mg/dL LAB CHEMISTRY METHOD 08/11/2024 11:47 AM T [facility] Blood Venous blood specimen / Unknown Venipuncture / Unknown 08/11/2024 6:40 AM EDT 08/11/2024 11:02 AM EDT us Rebecca Gomez MD LAB BLOOD ORDERABLES Final Resul t [facility] [address] [place] [address], [place] [phone] * (ABNORMAL) Complete blood count (08/11/2024 6:40 AM EDT) WBC 4.7(L) 4.8 - 10.8 K/mcL LAB HEMETOLOGY METHOD 08/11/2024 11:54 AM T [facility] RBC 4.50 4.50 - 5.50 M/mcL LAB HEMETOLOGY METHOD 08/11/2024 11:54 AM T [facility] Hemoglobin 12.6(L) 13.5 - 17.5 g/dL LAB HEMETOLOGY METHOD 08/11/2024 11:54 AM [facility] Hematocrit 37.8(L) 42.0 - 54.0 % LAB HEMETOLOGY METHOD 08/11/2024 11:54 AM EDT [facility] MCV 84.6 79.0 - 98.0 FL LAB HEMETOLOGY METHOD 08/11/2024 11:54 AM EDT [facility] MCH 28.2 27.0 - 32.0 pcg LAB HEMETOLOGY METHOD 08/11/2024 11:54 AM EDT [facility] MCHC 33.3 32.0 - 37.0 g/dL LAB HEMETOLOGY METHOD 08/11/2024 11:54 AM EDT [facility] RDW 13.9 11.0 - 15.0 % LAB HEMETOLOGY METHOD 08/11/2024 11:54 AM EDT [facility] Platelets 231 130 - 400 K/mcL LAB HEMETOLOGY METHOD 08/11/2024 11:54 AM EDT [facility] MPV 9.6 7.0 - 11.0 FL LAB HEMETOLOGY METHOD 08/11/2024 11:54 AM EDT [facility] NRBC 0.0 <1.0 % LAB HEMETOLOGY METHOD 08/11/2024 11:54 AM EDT [facility] NRBC Absolute 0.00 <0.10 K/mcL LAB HEMETOLOGY METHOD 08/11/2024 11:54 AM EDT [facility] Blood Venous blood specimen / Unknown Venipuncture / Unknown 08/11/2024 6:40 AM EDT 08/11/2024 11:02 AM EDT us Rebecca Gomez MD LAB BLOOD ORDERABLES Final Resul t [facility] [address] [place] [address], documented in this encounter Visit Diagnoses Diagnosis Essential (primary) hypertension Unspecified essential hypertension Anemia, unspecified Cellulitis, unspecified Type 2 diabetes mellitus without complications documented in this encounter Additional Health Concerns Infection Onset Date Last Indicated Resolved Time C. difficile 08/02/2024 08/02/2024 08/26/2024 7:06 PM EDT documented as of this encounter Care Teams Director Strategic Account Management Relationship Specialty Start Date End Date Jagjit Hancock PA [address] [place] [phone] PCP - General Physician Physical Therapist 07/23/24 documented as of this encounter
--- OUTSIDE RECORDS SUMMARY | 2024-08-29 07:06 | XMS_ITS ---
Author Organization [facility] Address [address] [place] [address] Care Team Providers Care Spacecraft Systems Engineer Name Role Phone Marina MCDANIELS, Nubia Zelaya Primary Care Provider Un available Sussy Lowery Unavailable [phone] Encounters Encounter Location Date Provider Diagnosis [address] [phone] 08/26/2024 Sussy Lowery Plan Of Treatment Next Appt Details Provider Name:Sussy Yesenia Lowery , 09/01/2024 01:00:00 PM, [address] [place], [phone], Progress Notes * SOTERO TobinDOB:1945 ( 78 yo M)Acc No.[id number]:08/26/2024 Patient:?OLINDACHRISTIANOTobin NIELSON :1945???Age:78 Y???Sex:Male Address:[place], [address] * true * Date:? Generated for Printi raciel/Favu/eTransmitting on:?08/29/2024 07:05 AM EDT
--- OUTSIDE RECORDS SUMMARY | 2024-08-29 07:06 | XMS_ITS | Encounter Summary ---
Author Organization [facility] Address [address] [place] [address] Care Team Providers Care Operations Research Director Name Role Phone Jagjit Hancock Primary Care Provider Gigi price Encounter Details Date Type Department Care Team (Latest Contact Info) Description 08/02/2024 Lab Requisition [facility] - Main Lab [address] [place] [phone] Rebecca Gomez MD [address] [place] [phone] Essential (primary) hypertension; Anemia, unspecified; Cellulitis, unspecified; [...] Associated Diagnosis Comments COMPLETE BLOOD COUNT Routine 08/04/2024 8:03 AM EDT Essential (primary) hypertension Anemia, unspecified Cellulitis, unspecified Type 2 diabetes mellitus without complications (CMS/HCC) COMPREHENSIVE METABOLIC PANEL Routine 08/04/2024 8:03 AM EDT Essential (primary) hypertension Anemia, unspecified Cellulitis, unspecified Type 2 diabetes mellitus without complications (CMS/HCC) documented in this encounter Results * (ABNORMAL) Comprehensive metabolic panel (08/04/2024 8:03 AM EDT) [facility] Signature Sodium 133 133 - 145 mmol/L LAB CHEMISTRY METHOD 08/04/2024 12:15 PM [facility] Potassium 3.7 3.5 - 5.5 mmol/L LAB CHEMISTRY METHOD 08/04/2024 12:15 PM [facility] Chloride 97 96 - 110 mmol/L LAB CHEMISTRY METHOD 08/04/2024 12:15 PM [facility] CO2 24 21 - 32 mmol/L LAB CHEMISTRY METHOD 08/04/2024 12:15 PM [facility] Anion Gap 12(H) 3 - 11 LAB CHEMISTRY METHOD 08/04/2024 12:15 PM [facility] Glucose 93 70 - 100 mg/dL LAB CHEMISTRY METHOD 08/04/2024 12:15 PM [facility] BUN 36(H) 5 - 25 mg/dL LAB CHEMISTRY METHOD 08/04/2024 12:15 PM [facility] Creatinine 1.11 0.70 - 1.30 mg/dL LAB CHEMISTRY METHOD 08/04/2024 12:15 PM [facility] eGFR 68 >=60 mL/min/1. 73m2 LAB CHEMISTRY METHOD 08/04/2024 12:15 PM [facility] Comment:Calculation based on the??Chronic Kidney Disease Epidemiology Collaboration (CKD-EPI) equation refit??without adjustment for race. BUN/Creatinine Ratio 32.4 LAB CHEMISTRY METHOD 08/04/2024 12:15 PM [facility] Calcium 9.6 8.5 - 10.5 mg/dL LAB CHEMISTRY METHOD 08/04/2024 12:15 PM [facility] AST (SGOT) 18 10 - 42 unit/L LAB CHEMISTRY METHOD 08/04/2024 12:15 PM [facility] ALT (SGPT) 19 10 - 60 unit/L LAB CHEMISTRY METHOD 08/04/2024 12:15 PM EDT [facility] Alkaline Phosphatase 83 42 - 121 unit/L LAB CHEMISTRY METHOD 08/04/2024 12:15 PM EDT [facility] Total Protein 6.9 6.0 - 8.0 g/dL LAB CHEMISTRY METHOD 08/04/2024 12:15 PM T [facility] Albumin 3.3 3.2 - 5.0 g/dL LAB CHEMISTRY METHOD 08/04/2024 12:15 PM EDT [facility] Total Bilirubin 0.5 0.0 - 1.4 mg/dL LAB CHEMISTRY METHOD 08/04/2024 12:15 PM EDT [facility] Blood Venous blood specimen / Unknown Venipuncture / Unknown 08/04/2024 8:03 AM EDT 08/04/2024 10:52 AM EDT Rebecca Gomez MD LAB BLOOD ORDERABLES Final Resul t [facility] [address] [place] [address], * (ABNORMAL) Complete blood count (08/04/2024 8:03 AM EDT) WBC 6.9 4.8 - 10.8 K/mcL LAB HEMETOLOGY METHOD 08/04/2024 11:38 AM EDT [facility] RBC 4.60 4.50 - 5.50 M/mcL LAB HEMETOLOGY METHOD 08/04/2024 11:38 AM T [facility] Hemoglobin 12.8(L) 13.5 - 17.5 g/dL LAB HEMETOLOGY METHOD 08/04/2024 11:38 AM T [facility] Hematocrit 39.0(L) 42.0 - 54.0 % LAB HEMETOLOGY METHOD 08/04/2024 11:38 AM EDT [facility] MCV 85.2 79.0 - 98.0 FL LAB HEMETOLOGY METHOD 08/04/2024 11:38 AM EDT [facility] MCH 27.9 27.0 - 32.0 pcg LAB HEMETOLOGY METHOD 08/04/2024 11:38 AM EDT [facility] MCHC 32.8 32.0 - 37.0 g/dL LAB HEMETOLOGY METHOD 08/04/2024 11:38 AM EDT [facility] RDW 13.9 11.0 - 15.0 % LAB HEMETOLOGY METHOD 08/04/2024 11:38 AM EDT [facility] Platelets 281 130 - 400 K/mcL LAB HEMETOLOGY METHOD 08/04/2024 11:38 AM EDT [facility] MPV 9.3 7.0 - 11.0 FL LAB HEMETOLOGY METHOD 08/04/2024 11:38 AM EDT [facility] NRBC 0.0 <1.0 % LAB HEMETOLOGY METHOD 08/04/2024 11:38 AM T [facility] NRBC Absolute 0.00 <0.10 K/mcL LAB HEMETOLOGY METHOD 08/04/2024 11:38 AM [facility] Blood Venous blood specimen / Unknown Venipuncture / Unknown 08/04/2024 8:03 AM EDT 08/04/2024 10:52 AM EDT us Rebecca Gomez MD LAB BLOOD ORDERABLES Final Resul t [facility] [address] [place] [address], documented in this encounter Visit Diagnoses Diagnosis Essential (primary) hypertension Unspecified essential hypertension Anemia, unspecified Cellulitis, unspecified Type 2 diabetes mellitus without complications documented in this encounter Additional Health Concerns Infection Onset Date Last Indicated Resolved Time C. difficile 08/02/2024 08/02/2024 08/26/2024 7:06 PM EDT C. Diff Rule-Out Infection 08/03/2024 08/02/2024 0 08/03/2024 11:45 AM EDT documented as of this encounter Care Teams Operations Research Director Relationship Specialty Start Date End Date Jagjit Hancock PA [address] [place] [phone] PCP - General Physician Skilled Nursing Facilities Professional 07/23/24 documented as of this encounter
--- OUTSIDE RECORDS SUMMARY | 2024-08-29 07:06 | XMS_ITS | Encounter Summary ---
Author Name [facility] [place] Organization [facility] [place] Address [address] [place] [address] Care Team Providers Care Mail Caller Name Role Phone ELISSA TRUJILLO Primary Care Provider [facility] e Insurance Providers: All historical and [...] MEDICARE SUPPLEMEN MARIEL Apr 27, 2012 PLAN [id number] [place] PATIENT AAR MED [facility] MEDICARE SUPPLEMEN MARIEL Apr 27, 2012 [facility] [id number] [place] PATIENT MEDICARE (WNR) MEDICARE (M) PART A 2011 PART A [id number] [place]IC[place] ([place]NR) MEDICARE (M) PART B 2011 PART B [id number] [place] Selected Encounter This section includes the information on record at [place] for the Encounter. Date/Time Encounter Type Encounter Description Reason Provider Source Jul 17, 2024 02:30 PM OFFICE O/P EST HI 40 MIN PRIMARY CARE/MEDICINE ICD-10-CM L03.116 Cellulitis of left lower limb ELISSA TRUJILLO [facility] Encounter Template Text not used by [facility] Assessments - Encounter Diagnoses This section includes the primary and secondary diagnoses documented for the Encounter. Date/Time Primary/Secondary Diagnosis Diagnosis Name Provider Source Aug 01, 2024 01:12 PM PRIMARY Cellulitis of left lower limb TRUJILLOELISSA [place] Aug 01, 2024 01:12 PM SECONDARY Cellulitis of right lower limb ELISSA TRUJILLO [place] Aug 01, 2024 01:12 PM SECONDARY Muscle weakness (generalized) RONNIEELISSA [place] Lab Results: +/- 30 days of the encounter This section includes the Chemistry and Hematology Lab Results on record with [place] for the patient. Radiology Reports and Pathology Reports are provided separately, in subsequent sections. Lab Results This section contains the Chemistry/Hematology Results that were resulted 30 days before or 30 daysafter the date of the Encounter. Date/Time Source Result Type Result - Unit Interpretation Reference Range Comment Jul 11, 2024 08:38 AM [place] HEMOGLOBIN A1C PANEL Specimen Type: BLOOD Comment: Values obtained from A1C measurements can vary. For atypical A1C assays, a reported value of 7.0 could actually be between 6.72 and 7.28 if measured by a reference method. A reported value of 9.0 could actually be between 8.73 and 9.27. Ref: http://www.ngs p.org/CAPdata. asp Ordering Provider: ELISSA TRUJILLO Report Released Date/Time: Jul 11, 2024 08:32 AM Reporting Lab: [facility] [address] [facility] [address] Performing [facility] [address] [facility] [address] HEMOGLOBIN A1C 6.2 H 4.0-5.6 Jul 11, 2024 08:38 AM [place] MICROALBUMIN CREATININE RATIO PANEL Spe cimen Type: URINE No comment entered. Ordering Provider: ELISSA TRUJILLO Report Released Date/Time: Jul 11, 2024 08:32 AM Reporting Lab: [facility] [address] [facility] [address] Performing [facility]: [facility] [address] [address] MICROALBUMIN/C REATININE RATIO 6.9 mg/g 0-29.9 MICROALBUMIN,Q UANTITATIVE 0.7 mg/dL RR UNAVAIL CREATININE URINE 101.71 mg/dL Jul 11, 2024 08:38 AM [place] TSH Specimen Type: SERUM No comment entered. Ordering Provider: ELISSA TRUJILLO Report Released Date/Time: Jul 11, 2024 08:32 AM Reporting Lab: [address] [address] Performing Lab: [facility] [address] [address] TSH 4.62 u[IU]/mL 0.35-5.00 Jul 11, 2024 08:38 AM [place] VITAMIN D (25-OH) Specimen Type: SERUM No comment entered. Ordering Provider: ELISSA TRUJILLO Report Released Date/Time: Jul 11, 2024 08:32 AM Reporting Lab: [address] [address] Performing Lab: [address] [address] VITAMIN D (25-OH) 48 ng/mL 20-50 Jul 11, 2024 08:38 AM [place] CBC Specimen Type: BLOOD No comment entered. Ordering Provider: ELISSA TRUJILLO Report Released Date/Time: Jul 11, 2024 08:32 AM Reporting Lab: [address] [address] Performing Lab: [address] [address] WBC 9.27 10*3/uL 4.50-11.00 RBC 4.41 10*6/uL 4.23-5.66 HGB 12.3 g/dL L 12.8-17 HCT 37.7 L 39.2-50.4 MCV 85.5 fL 82-99 MCHC 32.6 g/dL 30.8-35.1 PLT 277 10*3/uL 140-360 RDW-CV 13.8 12.0-16.0 MCH 27.9 pg 26.2-32.6 Jul 11, 2024 08:38 AM [place] LIPID PANEL, NON FASTING Specimen Type: SERUM No comment entered. Ordering Provider: ELISSA TRUJILLO Report Released Date/Time: Jul 11, 2024 08:32 AM Reporting Lab: [address] [address] Performing Lab: [address] [address] CHOLESTEROL 147 mg/dL TRIGLYCERIDE 96 mg/dL 0-150 LDL calculated 76 mg/dL 0-129 CHOL/HDL 2.8 HDL CHOLESTEROL 52 mg/dL 40-60 Jul 11, 2024 08:38 AM [place] BASIC METABOLIC PANEL (non-fasting) Spe cimen Type: SERUM No comment entered. Ordering Provider: ELISSA TRUJILLO Report Released Date/Time: Jul 11, 2024 08:32 AM Reporting Lab: [address] [address] Performing Lab: [address] [address] UREA NITROGEN 20 mg/dL 7-25 GLUCOSE 135 mg/dL H 65-100 SODIUM 138 mmol/L 135-145 POTASSIUM 3.8 mmol/L 3.5-5.0 CHLORIDE 100 mmol/L 100-110 CO2 28 meq/L 20-30 CREATININE, Serum 1.07 mg/dL 0.50-1.40 eGFR(CKD-EPI 2020) 71 mL/min >60 Jul 11, 2024 08:38 AM [place] LIVER FUNCTION Specimen Type: SERUM No comment entered. Ordering Provider: ELISSA TRUJILLO Report Released Date/Time: Jul 11, 2024 08:32 AM Reporting Lab: [address] [address] Performing Lab: [address] [address] PROTEIN,TOTAL 7.7 g/dL 6.0-8.3 ALBUMIN 3.5 g/dL 3.5-5.0 ALKALINE PHOSPHATASE 90 U/L 40-150 AST 17 U/L 5-34 ALT 12 U/L BILIRUBIN, TOTAL 0.3 mg/dL 0.2-1.2 Vital Signs: All taken on the encounter date This section contains inpatient and outpatient Vital Signs collected on the date of the Encounter. Date/Time Temperature Pulse Blood Pressure Respiratory Rate SP02 Pain Height Weight Body Mass Index Source Jul 17, 2024 02:39 PM 97.6 87 124/84 99 [facility] IE Social History: Smoking Status (Most current) and Tobacco Use (All prior to encounter date) This section includes the most current, and the historical, smoking and tobacco- related health factors from the [place] facility where the Encounter took place. Current Smoking Status This section includes the most current smoking, or tobacco-related health factor, from the [place] facility where the Encounter took place. Date/Time Current Smoking Status Comment Facil ity Feb 14, 2023 01:30 PM [place]-TOBACCO NEVER USED [place] Tobacco Use History This section includes a history of the smoking, or tobacco-related health factors, that were collected on or before the date of the Encounter. The data comes from the [place] facility where the Encounter took place. Date/Time Smoking Status/Tobacco Use Comment F acility Jan 27, 2022 02:00 PM VA-TOBACCO NEVER USED [place] Nov 08, 2017 10:02 AM VA-TOBACCO NEVER USED [place] Nov 08, 2017 08:55 AM LIFETIME NON-TOBACCO USER [place] Nov 08, 2016 09:08 AM LIFETIME NON-TOBACCO USER [place] October 21, 2015 02:24 PM LIFETIME NON-TOBACCO USER [place] Sep 10, 2012 09:28 AM LIFETIME NON-TOBACCO USER [place] Encounter Notes: All associated encounter notes This section contains the clinical notes associated to the Encounter. Date/Time Encounter Note(s) Provider Source Jul 17, 2024 03:32 PM URGENT CARE NOTE: LOCAL TITLE: INTERFACILITY TRANSFER FORM [id number] [facility] STANDARD TITLE: URGENT CARE NOTE DATE OF NOTE: JUL 17, 2024@15:32 ENTRY DATE: JUL 17, 2024@15:32:26 AUTHOR: ELISSA TRUJILLO COSIGNER: URGENCY: STATUS: COMPLETED LIP (/) Required SECTION I - REASON FOR TRANSFER 1. Nature of services needed by patient requiring transfer (Identify): Diagnosis, Treatment 2. Describe service needed: Hospital admission for BLE cellulitis and profound weakness SECTION II - TYPE AND LEVEL OF SERVICES REQUIRED 1. Diagnosis: Lower extremity cellulitis 2. Description of treatment prior to transfer: Evaluation 3. Description of further treatment contemplated: Hospital admission, IV antibiotics, fluid resuscitation 4. Level of care prior to transfer (ER, Outpatient, [place], ICU etc.): Outpatient clinic 5. Proposed level of care after transfer: Acute care hospitalization SECTION III - CONDITION OF PATIENT ON TRANSFER Attending oversight of DON Dr. Cris Melo Is patient medically stable for transfer: Yes Is patient behaviorally stable for transfer: Yes SECTION IV - MODE OF TRANSPORTATION 1. Describe mode and level of care required for transport (including facility staff if required): Transport mode: Ambulance BLS Level of care: Basic Life Support 2. Medications or treatments required during transport: Per community EMS protocol Per community EMS protocol SECTION V - PATIENT/FAMILY CONSENT RECEIVED The 1026-B consent form MUST BE COMPLETED in IMED for ALL TRANSFERS including patients transferred under emergemcy/ implied consent. Consent for transfer obtained: YES Patient Consent obtained from: Patient SECTION - DECISION Transfer via community EMS Name of accepting LIP (/) or Point of Contact: ED MD Facility patient is being transferred to: Other: [facility] Date and time transfer is to occur: Jun@15:10 Unit patient to be transferred to: [facility] ED Contact phone number for accepting LIP (/) or POC: [phone] SECTION VII - Information to be sent with patient: Transfer note (Interfacility transfer note(s) [id number] Provider and Nurse) Medication lists including an active patient medication list and any medications given to the patient prior to transfer Copy of patient's (or legally responsible person acting on the patient's behalf) informed consent to transfer with [facility] Form [id number] Documentation of the patient's advance directive made prior to transfer, if any Copy of any State-authorized portable order for life-sustaining treatment, if available /med/ ELISSA TRUJILLO NP NURSE PRACTITIONER Signed: 07/17/2024 15:35 Receipt Acknowledged By: 07/24/2024 07:37 /jeromy Melo MD INTERNAL MEDICINE and RHEUMATOLOGY ELISSA TRUJILLO Jul 17, 2024 02:27 PM PRIMARY CARE NURSE PRACTITIONER OUTPATIENT NOTE: LOCAL TITLE: NURSE PRACTITIONER OUTPATIENT NOTE STANDARD TITLE: PRIMARY CARE NURSE PRACTITIONER OUTPATIENT NOTE DATE OF NOTE: JUL 17, 2024@14:27 ENTRY DATE: JUL 17, 2024@14:27:28 AUTHOR: TRUJILLO,GIANFRANCO EXP COSIGNER: URGENCY: STATUS: COMPLETED PRIMARY CARE VISIT REUBEN AMOS, is a 78 yo WHITE MALE [place] the [place] [facility]. 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 He is comanaged with a community PCP. He has continued to follow with wound care at [facility]. He had a right total hip replacement scheduled in July that was postponed due to the pressure wounds. It has been rescheduled to early 2024 contingent on status of his pressure ulcers. He arrives today profoundly weak requiring assistance to the exam room via wheelchair. He reports progressive weakness over the past several weeks. He is unable to walk or perform ADLs. He is unable to toilet himself or stand to cook. He scoots around the house as needed. He has had several falls recently due to weakness. No head strike. Additionally, he reports new wounds on BLE to which he has been applying steroid cream. After brief discussion, he agrees to transfer to the emergency department for likely IV antibiotics, fluid resuscitation, and ultimately inpatient rehab. HEALTHCARE PROVIDERS: Community PCP: Dr. Gray Derm: Bassam Graves Derm Wound: [facility] Podiatry: [place] Dr. Osman. Social Hx: He is and lives with his . He has never smoked. He drinks alcohol rarely. No MJ or illicits. 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 He previously exercised thrice weekly but this has decreased considerably due to pain in his right hip. He does continue chair exercises as tolerated. Family history is notable for mother, brother, and maternal nephew with diabetes. HEALTHCARE PROVIDERS: Community PCP: Dr. Gray Derm: Bassam Graves Derm Wound: [facility] Podiatry: [place] Dr. Osman. Social Hx: He is and lives with his . He has never smoked. He drinks alcohol rarely. No MJ or illicits. 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 He previously exercised thrice weekly but this has decreased considerably due to pain in his right hip. He does continue chair exercises as tolerated. Family history is notable for mother, brother, and maternal nephew with diabetes. HISTORY: PERIOD OF SERVICE - [employer] FROM JUL 1965 TO JUN 1969 COMBAT SERVICE INDICATED: No MEDICAL HISTORY Active Problem Hyperlipidemia (RUST [id number]) E78.5 08/15/2023 KEO ANAYA Psoriasis L40.9 08/15/2023 [...] GLORY SANTAMARIA HTN - Hypertension ([place] [address] 01/27/2022 VANESSA ELLIS Postsurgical Status of Cataract Ext 09/10/2012 [place] VITAL SIGNS: Temperature 97.6 F [36.4 C] (03/06/2024 15:09) Blood Pressure 128/74 (03/06/2024 15:09) Pulse 66 (03/06/2024 15:09) Respiration 20 (08/15/2023 14:02) Pain 4 (08/15/2023 14:02) BMI BMI: 28.0 Weight 212 lb [96.16 kg] (03/06/2024 15:09) Pulse Oximetry 98% (03/06/2024 15:09) ASSISTIVE DEVICES: Cane, wheelchair REVIEW OF SYSTEMS: CONSTITUTIONAL: No fevers, chills, weight loss/gain ENT: No sore throat, sneezing, congestion, rhinorrhea. CARDIOVASCULAR: No chest pain, palpitations. Increased BLE edema. RESPIRATORY: No SOB, cough, sputum, wheeze. GASTROINTESTINAL: Denies abd pain, N/V/D. No melena or hematochezia. GENITOURINARY: No burning micturition. No urinary frequency or urgency. No nocturia. MUSCULOSKELETAL: No myalgias or arthralgias. PSYCHIATRIC: New anxiety related to weakness. NEUROLOGIC: Progressive weakness over several weeks with multiple falls. No head strike. EXAMINATION General: Older, ill-appearing in a wheelchair. Mental Status: Alert and oriented x4. Head: Normocephalic. Atraumatic Eyes: PERRLA. EOMI. Anicteric sclerae. ENT: Moist oral mucosa. Neck: Supple. No JVD. Lungs: Diffusely diminished but clear breath sounds. CV: Heart tones S1, S2. RRR. No M/G/R. 2+ BLE edema from knees to feet. GI: Abdomen is soft and nontender. No palpable mass. : No CVA tenderness. Neuro: CN II through XII grossly intact. Normal speech. Integument: BLE presents with multiple open lesions with purulent drainage. Hyperkeratotic skin with erythema and 2+ edema. No TTP. Psych: Normal mood and affect. Normal judgment. ALLERGIES: ========= Patient has answered NKA >> HEALTH MAINTENANCE PREVENTIVE MEDICINE GOALS Advance Directive Screen AD Jan 27 Depression Screening DUE NOW Medication Reconciliation DUE NOW RSV Immunization DUE NOW Sexual Orientation Aug 14 PAVE Foot Check Aug 14 (Optional) Whole Health Documentation DUE NOW ASSESSMENT/PLAN: Active problems - Computerized Problem List is the source for the following: BLE cellulitis: Will likely need hospital admission for IV antibiotics and fluid resuscitation. In addition, there is a confounding factor of chronic buttock wounds. Profound weakness: Likely multifactorial in this patient with advanced age with multiple underlying comorbidities. He will need inpatient rehab acute care admission. An ambulance was called for transfer to the hospital to which the patient consented. I telephoned the [facility] emergency department and provided background information and purpose of transport. The nurse telephoned the veterans and informed her of these recent events. FOLLOW UP: RTC Below & sooner PRN UPCOMING APPOINTMENTS: 07/17/2024 14:30 SPR PACT 1 LENS MOLDER 55 minutes spent in patient evaluation, data review, [...] /med/ ELISSA TRUJILLO NP NURSE PRACTITIONER Signed: 07/17/2024 15:30 ELISSA TRUJILLO
--- OUTSIDE RECORDS SUMMARY | 2024-08-29 07:06 | XMS_ITS | Encounter Summary ---
Author Organization [facility] Address [address] [place] [address] Care Team Providers Care General Practitioner Name Role Phone Jagjit Hancock Primary Care Provider Gigi price Encounter Details Date Type Department Care Team (Latest Contact Info) Description 08/16/2024 Lab Requisition [facility] - Main Lab [address] [place] [phone] Rebecca Gomez MD [address] [place] [phone] Essential (primary) hypertension; Anemia, unspecified; Cellulitis, unspecified; Type 2 diabetes mellitus without complications (CMS/[facility]) Social History Tobacco Use Types Packs/Day Years [...] Associated Diagnosis Comments COMPLETE BLOOD COUNT Routine 08/18/2024 7:18 AM EDT Essential (primary) hypertension Anemia, unspecified Cellulitis, unspecified Type 2 diabetes mellitus without complications COMPREHENSIVE METABOLIC PANEL Routine 08/18/2024 7:18 AM EDT Essential (primary) hypertension Anemia, unspecified Cellulitis, unspecified Type 2 diabetes mellitus without complications documented in this encounter Results * (ABNORMAL) Comprehensive metabolic panel (08/18/2024 7:18 AM EDT) Sodium 132(L) 133 - 145 mmol/L LAB CHEMISTRY METHOD 08/18/2024 12:46 PM [facility] Potassium 4.4 3.5 - 5.5 mmol/L LAB CHEMISTRY METHOD 08/18/2024 12:46 PM [facility] Chloride 95(L) 96 - 110 mmol/L LAB CHEMISTRY METHOD 08/18/2024 12:46 PM [facility] CO2 27 21 - 32 mmol/L LAB CHEMISTRY METHOD 08/18/2024 12:46 PM [facility] Anion Gap 10 3 - 11 LAB CHEMISTRY METHOD 08/18/2024 12:46 PM [facility] Glucose 88 70 - 100 mg/dL LAB CHEMISTRY METHOD 08/18/2024 12:46 PM [facility] BUN 34(H) 5 - 25 mg/dL LAB CHEMISTRY METHOD 08/18/2024 12:46 PM [facility] Creatinine 1.19 0.70 - 1.30 mg/dL LAB CHEMISTRY METHOD 08/18/2024 12:46 PM [facility] eGFR 63 >=60 mL/min/1. 73m2 LAB CHEMISTRY METHOD 08/18/2024 12:46 PM [facility] Comment:Calculation based on the??Chronic Kidney Disease Epidemiology Collaboration (CKD-EPI) equation refit??without adjustment for race. BUN/Creatinine Ratio 28.6 LAB CHEMISTRY METHOD 08/18/2024 12:46 PM [facility] Calcium 9.7 8.5 - 10.5 mg/dL LAB CHEMISTRY METHOD 08/18/2024 12:46 PM [facility] AST (SGOT) 30 10 - 42 unit/L LAB CHEMISTRY METHOD 08/18/2024 12:46 PM [facility] ALT (SGPT) 34 10 - 60 unit/L LAB CHEMISTRY METHOD 08/18/2024 12:46 PM EDT [facility] Alkaline Phosphatase 93 42 - 121 unit/L LAB CHEMISTRY METHOD 08/18/2024 12:46 PM EDT [facility] Total Protein 7.2 6.0 - 8.0 g/dL LAB CHEMISTRY METHOD 08/18[facility]2024 12:[facility] Albumin 3.4 3.2 - 5.0 g/dL LAB CHEMISTRY METHOD 08/18/2024 12:46 PM EDT [facility] Total Bilirubin 0.6 0.0 - 1.4 mg/dL LAB CHEMISTRY METHOD 08/18/2024 12:46 PM EDT [facility] Blood Venous blood specimen / Unknown Venipuncture / Unknown 08/18/2024 7:18 AM EDT 08/18/2024 11:03 AM EDT Rebecca Gomez MD LAB BLOOD ORDERABLES Final Resul t [facility] [address] [place] [address], [place] [phone] * (ABNORMAL) Complete blood count (08/18/2024 7:18 AM EDT) WBC 7.0 4.8 - 10.8 K/mcL LAB HEMETOLOGY METHOD 08/18/2024 11:59 AM EDT [facility] RBC 4.90 4.50 - 5.50 M/mcL LAB HEMETOLOGY METHOD 08/18/2024 11:59 AM EDT [facility] Hemoglobin 14.1 13.5 - 17.5 g/dL LAB HEMETOLOGY METHOD 08/18/2024 11:59 AM EDT [facility] Hematocrit 41.1(L) 42.0 - 54.0 % LAB HEMETOLOGY METHOD 08/18/2024 11:59 AM EDT [facility] MCV 83.4 79.0 - 98.0 FL LAB HEMETOLOGY METHOD 08/18/2024 11:59 AM EDT [facility] MCH 28.6 27.0 - 32.0 pcg LAB HEMETOLOGY METHOD 08/18/2024 11:59 AM EDT [facility] MCHC 34.3 32.0 - 37.0 g/dL LAB HEMETOLOGY METHOD 08/18/2024 11:59 AM EDT [facility] RDW 14.2 11.0 - 15.0 % LAB HEMETOLOGY METHOD 08/18/2024 11:59 AM EDT [facility] Platelets 266 130 - 400 K/mcL LAB HEMETOLOGY METHOD 08/18/2024 11:59 AM EDT [facility] MPV 8.9 7.0 - 11.0 FL LAB HEMETOLOGY METHOD 08/18/2024 11:59 AM EDT [facility] NRBC 0.0 <1.0 % LAB HEMETOLOGY METHOD 08/18/2024 11:59 AM EDT [facility] NRBC Absolute 0.00 <0.10 K/mcL LAB HEMETOLOGY METHOD 08/18/2024 11:59 AM EDT [facility] Blood Venous blood specimen / Unknown Venipuncture / Unknown 08/18/2024 7:18 AM EDT 08/18/2024 11:03 AM EDT us Rebecca Gomez MD LAB BLOOD ORDERABLES Final Resul t [facility] [address] [place] [address], documented in this encounter Visit Diagnoses Diagnosis Essential (primary) hypertension Unspecified essential hypertension Anemia, unspecified Cellulitis, unspecified Type 2 diabetes mellitus without complications documented in this encounter Additional Health Concerns Infection Onset Date Last Indicated Resolved Time C. difficile 08/02/2024 08/02/2024 08/26/2024 7:06 PM EDT documented as of this encounter Care Teams General Practitioner Relationship Specialty Start Date End Date Jagjit Hancock PA [address] [place] [address] [place] [phone] PCP - General Physician Silk Screen Printer Helper 07/23/24 documented as of this encounter
--- OUTSIDE RECORDS SUMMARY | 2024-08-29 07:06 | XMS_ITS ---
Author Organization [facility] Address [address] [place] [address] Care Team Providers Care Production Worker Name Role Phone Marina MCDANIELS, Nubia Zelaya Primary Care Provider Un available Black, Sussy Unavailable [phone] Allergies No Known Allergies REASON FOR VISIT At Risk Footcare Medications Medication SIG (Take, Route, Frequency, Duration) Notes Start Date End Date Status Losartan Potassium A ctive metFORMIN HCl Active hydrALAZINE HCl 75mg 1 tablet Orally 3 times a day Active Naproxen 500 MG 1 tablet as needed Orally every 12 hrs Active Metoprolol & Diet Manage Prod Active Rosuvastatin Calcium Active Tacrolimus 0.1 % 1 application Externally Once a day Active Ozempic Active Extra Depth Orthopedic Shoes (1 Pair) with Customized Heat Molded Multidensity Innersoles (3 Pair) as directed Dx: NIDDM/Polyneuropathy (E11.42), Hammertoe Foot Deformity (M20.41,M20.42), Preulcerative Skin Lesion(s) (L85.1 12/22/2015 Not-Taking Extra-Depth Diabetic Shoes with 3 Pair Custom heat-molded multi-density innersoles . for 1 year . Dx:hammerotes and calloused lesions for . 12/17/2014 Not-Taking Extra-Depth Diabetic Shoes with 3 Pair Custom heat-molded multi-density innersoles Not-Taking OxyCONTIN Not-Taking Ciclopirox Olamine 0.77% external Apply to effected areas twice a day for 30 days 12/18/2013 Not-Taking CeleBREX 200 MG Orally Not- Taking Januvia 50 MG 1 tablet Orally Once a day Not-Taking sAXagliptin HCl Not- Taking Cipro 500 MG 1 tablet Orally ever y 12 hrs for 10 day(s) 01/19/2020 Not-Taking Bactrim DS 800-160 MG 1 tablet Orally Tw ice a day for 10 day(s) 12/18/2019 Not-Taking Extra Depth Orthopedic Shoes (1 Pair) with Customized Heat Molded Multidensity Innersoles (3 Pair) as directed Dx: NIDDM/Polyneuropathy (E11.42), Hammertoe Foot Deformity (M20.41,M20.42), Preulcerative Skin Lesion(s) (L85.1 01/11/2017 Not-Taking Cipro 500 MG 1 tablet Orally ever y 12 hrs for 10 day(s) 12/22/2019 Not-Taking Trulicity 0.75 MG/0.5ML as directed Subcutaneous Not-Taking Ciclopirox Olamine 0.77 % 1 application Externally Twice a day for 30 days 09/18/2019 Not-Taking traMADol HCl Not-Erick ing Alogliptin Benzoate 25 MG Orally Not-Taking Bactrim DS 800-160 MG 1 tablet Orally Tw ice a day for 10 day(s) 03/19/2020 Not-Taking Mupirocin 2 % 1 application Externally Once a day for 30 days 11/24/2021 Not-Taking Extra Depth Orthopedic Shoes (1 Pair) with Customized Heat Molded Multidensity Innersoles (3 Pair) as directed Dx: NIDDM/Polyneuropathy (E11.42), Hammertoe Foot Deformity (M20.41,M20.42), Preulcerative Skin Lesion(s) (L85.1 02/21/2018 Not-Taking Ciclopirox Olamine 0.77 % 1 application to affected area Externally to feet Twice a day for 30 days Not-Taking Bactrim DS 800-160 MG 1 tablet [...] Twice a day for 30 days Not-Taking Betadine 10 % Apply a light layer to affected area on foot as needed Externally 3 time(s) a day for 10 days 11/19/2023 Active Extra Depth Orthopedic Shoes (1 Pair) with Customized Heat Molded Multidensity Innersoles (3 Pair) as directed Dx: NIDDM/Polyneuropathy (E11.42), Hammertoe Foot Deformity (M20.41,M20.42), Preulcerative Skin Lesion(s) (L85.1 09/11/2022 Not-Taking Meloxicam 15 MG Orally Not- Taking Ciclopirox Olamine 0.77 % 1 application Externally Twice a day for 30 days 08/25/2021 Not-Taking Extra Depth Orthopedic Shoes (1 Pair) with Customized Heat Molded Multidensity Innersoles (3 Pair) as directed Dx: NIDDM/Polyneuropathy (E11.42), Hammertoe Foot Deformity (M20.41,M20.42), Preulcerative Skin Lesion(s) (L85.1 08/25/2021 Not-Taking hydroCHLOROthiazide Active Iron 325 (65 Fe) MG 1 tablet Orally Once a day Active Spironolactone Activ e Social History Tobacco Use: Social History Observation Description Date Details (start date - stop date) Never Smoker NA - NA Tobacco Use/Smoking Question Answer Notes Are you a: nonsmoker Additional Findings: Tobacco Non-User Current no n-smoker Tobacco use other than smoking: Question Answer Notes Are you an other tobacco user? No Vital Signs Height 6 ft in 06/02/2024 Weight 212 lbs 06/02/2024 BMI 28.75 kg/m2 06/02/2024 Blood pressure systolic 121 mm Hg 06/02/19 25 Blood pressure diastolic 78 mm Hg 025 Procedures Procedure Date Ordered Date Performed Result Body Sit e [id number]-YYFVFVI NAIL, 6 OR MORE 06/02/2024 N/A 22903-KRPM SKIN LESIONS, OVER 4 06/02/2024 N/A Encounters Encounter Location Date Provider Diagnosis [facility] [address] [address] 06/02/2024 Sussy Lowery Type 2 diabetes mellitus with diabetic polyneuropathy E11.42 and Tinea unguium B35.1 Assessments Encounter Date Diagnosis (ICD Code) Assessment Notes Treatment Notes Treatment Clinical Notes Section Notes 06/02/2024 Type 2 diabetes mellitus with diabetic polyneuropathy (ICD-10 - E11.42) 06/02/2024 Tinea unguium (ICD-10 - B35.1) 06/02/2024 Other Plan Of Treatment Pending Test Test Name Order Date [id number] NAIL, 6 OR MORE 06/02/2024 13097-TVQC SKIN LESIONS, OVER 4 06/02/19 25 Next Appt Details Follow Up: 3 Months, Reason: Provider Name:Sussy Lowery , 09/01/2024 01:00:00 PM, [address] [place] [address], [id number], Procedure Notes * Category Sub-Category Detail Notes Debride Nail 6-10 Nail debridement Due to the cl inical pathology outlined in the exam findings, performance of this nail treatment is medically necessary as its management by an unskilled/untrained nonprofessional would put this patients foot and overall health at risk. Therefore, debridement to affected nail(s), as described in exam ( TA, T1, T2, T3, T4, T5, T6, T7, T8, T9, ), was performed exclusively by the physician of record to reduce/remove overall nail length, girth, thickness, subungual debris, and necrotic tissue, by manual and/or electrical means through the use of a nail nipper and/or dremel-type shear grinder operator, to a more viable healthy nail plate or bed tissue 6-10 nails in total. Silver nitrate was used for any petechial bleeding as necessary. Definitive antifungal treatment options, both pharmaceutical and surgical, have been reviewed and discussed with the patient. The patient solely prefers the use of intermittent/as needed professional debridement services for their nail condition and understands the need for additional periodic treatments to maintain effectiveness in symptomatic relief - 48154 Keratoma Treatment Parring or Cutting o f Benign Hyperkeratotic Lesion(s) (-57) More than 4 Lesions - Due to the at risk nature of the patients medical condition as documented in the exam findings, performance of this keratoderma treatment is medically necessary as its management by an unskilled/untrained nonprofessional would put this patients foot and overall health at risk. Therefore, the benign hyperkeratotic lesions, ( 6) in total, locations as stated and described in the exam ( SUB MTH (s), 1, 5, B/L ,, Plantar Heel(s), B/L ), were pared, and/or cut utilizing a sterile 15 blade, tissue nippers, and/or power dremel instrumentation by the physician of record - 16537 Progress Notes * Tobin BEYDOB:1945 ( 78 yo M)Acc No.[id number]:06/02/2024 Progress Note Patient:?Tobin BEY Provider:?Sussy Lowery DPM :1945???Age:78 Y???Sex:Male Romeo e:06/02/2024 Address:[address] [place], [place] [id number] Pcp:Jayjay Graham Subjective: * Chief Complaints: * ???At Risk Footcare * HPI: ???At Risk footcare:?Pt States Last PCP Visit:?Date?09/21/2023 * ROS:?General/Constitutional:?Nausea?denies.?Vomiting?denies.?Hunger Thirst?denies.?Loss appetite?denies.?Chills?denies.?Fatigue?denies.?Fever?denies.?Night Sweats?denies.?Unexplained weight loss?denies.?Ophthalmologic:?Blurred [...] than smoking?Are you an other tobacco user??No * Medications:?TakingTacrolimu s 0.1 % Ointment 1 application Externally Once a day Rosuvastatin Calcium Ozempic metFORMIN HCl Losartan Potassium Naproxen 500 MG Tablet 1 tablet as needed Orally every 12 hrs hydrALAZINE HCl 75mg Tablet 1 tablet Orally 3 times a day Metoprolol & Diet Manage Prod hydroCHLOROthiazide Spironolactone Iron 325 (65 Fe) MG Tablet 1 tablet Orally Once a day Extra Depth Orthopedic Shoes (1 Pair) with Customized Heat Molded Multidensity Innersoles (3 Pair) as directed Dx: NIDDM/Polyneuropathy (E11.42), Hammertoe Foot Deformity (M20.41,M20.42), Preulcerative Skin Lesion(s) (L85.1 Betadine 10 % Solution Apply a light layer to affected area on foot as needed Externally 3 time(s) a day Taking Tacrolimus 0.1 % Ointment 1 application Externally Once a day Taking Rosuvastatin Calcium Taking Ozempic Taking metFORMIN HCl Taking Losartan Potassium Taking Naproxen 500 MG Tablet 1 tablet as needed Orally every 12 hrs Taking hydrALAZINE HCl 75mg Tablet 1 tablet Orally 3 times a day Taking Metoprolol & Diet Manage Prod Taking hydroCHLOROthiazide Taking Spironolactone Taking Iron 325 (65 Fe) MG Tablet 1 tablet Orally Once a day Taking Extra Depth Orthopedic Shoes (1 Pair) with Customized Heat Molded Multidensity Innersoles (3 Pair) as directed Dx: NIDDM/Polyneuropathy (E11.42), Hammertoe Foot Deformity (M20.41,M20.42), Preulcerative Skin Lesion(s) (L85.1 Taking Betadine 10 % Solution Apply a light layer to affected area on foot as needed Externally 3 time(s) a day Not-Taking/PRNExtra Depth Orthopedic Shoes (1 Pair) with Customized Heat Molded Multidensity Innersoles (3 Pair) as directed Dx: NIDDM/Polyneuropathy (E11.42), Hammertoe Foot Deformity (M20.41,M20.42), Preulcerative Skin Lesion(s) (L85.1 Ciclopirox Olamine 0.77 % Cream 1 application Externally Twice a day Ammonium Lactate 12 % Cream 1 application Externally Twice a day Meloxicam 15 MG Tablet Orally Extra Depth Orthopedic Shoes (1 Pair) with Customized Heat Molded Multidensity Innersoles (3 Pair) as directed Dx: NIDDM/Polyneuropathy (E11.42), Hammertoe Foot Deformity (M20.41,M20.42), Preulcerative Skin Lesion(s) (L85.1 Ciclopirox Olamine 0.77 % Cream 1 application to affected area Externally to feet Twice a day Extra Depth Orthopedic Shoes (1 Pair) with Customized Heat Molded Multidensity Innersoles (3 Pair) as directed Dx: NIDDM/Polyneuropathy (E11.42), Hammertoe Foot Deformity (M20.41,M20.42), Preulcerative Skin Lesion(s) (L85.1 Extra Depth Orthopedic Shoes (1 Pair) with Customized Heat Molded Multidensity Innersoles (3 Pair) as directed Dx: NIDDM/Polyneuropathy (E11.42), Hammertoe Foot Deformity (M20.41,M20.42), Preulcerative Skin Lesion(s) (L85.1 Bactrim DS 800-160 MG Tablet 1 tablet Orally Twice a day Mupirocin 2 % Ointment 1 application Externally Once a day Ciclopirox Olamine 0.77 % Cream 1 application Externally Twice a day Trulicity 0.75 MG/0.5ML Solution Pen-injector as directed Subcutaneous Alogliptin Benzoate 25 MG Tablet Orally traMADol HCl Bactrim DS 800-160 MG Tablet 1 tablet Orally Twice a day sAXagliptin HCl Bactrim DS 800-160 MG Tablet 1 tablet Orally Twice a day Cipro 500 MG Tablet 1 tablet Orally every 12 hrs Cipro 500 MG Tablet 1 tablet Orally every 12 hrs Extra Depth Orthopedic Shoes (1 Pair) with Customized Heat Molded Multidensity Innersoles (3 Pair) as directed Dx: NIDDM/Polyneuropathy (E11.42), Hammertoe Foot Deformity (M20.41,M20.42), Preulcerative Skin Lesion(s) (L85.1 Extra-Depth Diabetic Shoes with 3 Pair Custom heat-molded multi-density innersoles Ciclopirox Olamine 0.77% Cream external Apply to effected areas twice a day OxyCONTIN Januvia 50 MG Tablet 1 tablet Orally Once a day CeleBREX 200 MG Capsule Orally Extra-Depth Diabetic Shoes with 3 Pair Custom heat-molded multi-density innersoles . . for 1 year . Dx:hammerotes and calloused lesions Extra Depth Orthopedic Shoes (1 Pair) with Customized Heat Molded Multidensity Innersoles (3 Pair) as directed Dx: NIDDM/Polyneuropathy (E11.42), Hammertoe Foot Deformity (M20.41,M20.42), Preulcerative Skin Lesion(s) (L85.1 Medication List reviewed and reconciled with the patientNot-Taking/PRN Extra Depth Orthopedic Shoes (1 Pair) with Customized Heat Molded Multidensity Innersoles (3 Pair) as directed Dx: NIDDM/Polyneuropathy (E11.42), Hammertoe Foot Deformity (M20.41,M20.42), Preulcerative Skin Lesion(s) (L85.1 Not-Taking/PRN Ciclopirox Olamine 0.77 % Cream 1 application Externally Twice a day Not-Taking/PRN Ammonium Lactate 12 % Cream 1 application Externally Twice a day Not-Taking/PRN Meloxicam 15 MG Tablet Orally Not-Taking/PRN Extra Depth Orthopedic Shoes (1 Pair) with Customized Heat Molded Multidensity Innersoles (3 Pair) as directed Dx: NIDDM/Polyneuropathy (E11.42), Hammertoe Foot Deformity (M20.41,M20.42), Preulcerative Skin Lesion(s) (L85.1 Not-Taking/PRN Ciclopirox Olamine 0.77 % Cream 1 application to affected area Externally to feet Twice a day Not-Taking/PRN Extra Depth Orthopedic Shoes (1 Pair) with Customized Heat Molded Multidensity Innersoles (3 Pair) as directed Dx: NIDDM/Polyneuropathy (E11.42), Hammertoe Foot Deformity (M20.41,M20.42), Preulcerative Skin Lesion(s) (L85.1 Not-Taking/PRN Extra Depth Orthopedic Shoes (1 Pair) with Customized Heat Molded Multidensity Innersoles (3 Pair) as directed Dx: NIDDM/Polyneuropathy (E11.42), Hammertoe Foot Deformity (M20.41,M20.42), Preulcerative Skin Lesion(s) (L85.1 Not-Taking/PRN Bactrim DS 800-160 MG Tablet 1 tablet Orally Twice a day Not-Taking/PRN Mupirocin 2 % Ointment 1 application Externally Once a day Not-Taking/PRN Ciclopirox Olamine 0.77 % Cream 1 application Externally Twice a day Not-Taking/PRN Trulicity 0.75 MG/0.5ML Solution Pen-injector as directed Subcutaneous Not-Taking/PRN Alogliptin Benzoate 25 MG Tablet Orally Not-Taking/PRN traMADol HCl Not-Taking/PRN Bactrim DS 800-160 MG Tablet 1 tablet Orally Twice a day Not-Taking/PRN sAXagliptin HCl Not-Taking/PRN Bactrim DS 800-160 MG Tablet 1 tablet Orally Twice a day Not-Taking/PRN Cipro 500 MG Tablet 1 tablet Orally every 12 hrs Not-Taking/PRN Cipro 500 MG Tablet 1 tablet Orally every 12 hrs Not-Taking/PRN Extra Depth Orthopedic Shoes (1 Pair) with Customized Heat Molded Multidensity Innersoles (3 Pair) as directed Dx: NIDDM/Polyneuropathy (E11.42), Hammertoe Foot Deformity (M20.41,M20.42), Preulcerative Skin Lesion(s) (L85.1 Not-Taking/PRN Extra-Depth Diabetic Shoes with 3 Pair Custom heat-molded multi-density innersoles Not-Taking/PRN Ciclopirox Olamine 0.77% Cream external Apply to effected areas twice a day Not-Taking/PRN OxyCONTIN Not-Taking/PRN Januvia 50 MG Tablet 1 tablet Orally Once a day Not-Taking/PRN CeleBREX 200 MG Capsule Orally Not-Taking/PRN Extra-Depth Diabetic Shoes with 3 Pair Custom heat-molded multi-density innersoles . . for 1 year . Dx:hammerotes and calloused lesions Not-Taking/PRN Extra Depth Orthopedic Shoes (1 Pair) with Customized Heat Molded Multidensity Innersoles (3 Pair) as directed Dx: NIDDM/Polyneuropathy (E11.42), Hammertoe Foot Deformity (M20.41,M20.42), Preulcerative Skin Lesion(s) (L85.1 Medication List reviewed and reconciled with the patient * Allergies:?N.K.D.A.yes[Aller gies Verified] Objective: * Vitals:?Ht: 6 ft, Wt: 212, B AL: 28.75, Shoe size: 12W, BP: 121/78 mm Hg, BS: 178, Wt-k.16 kg. * ???Past Orders: ???Lab:HEMOGLOBIN A1C (GLYCO HEMOGLOBIN) (Order Date - 05/26/2024) (Collection Date & Time - 05/26/2024 03:54 PM) ? Value Reference Range ?HEMOGLOBIN A1C % (HH) 5.8 * Examination: ???Ophthalmology Referral: ?DIABETES EYE EXAM?Procedure Performed:?No ?Eye Exam not performed:?No reason specified ?Findings of Diabetic Eye Exam:?retinopathy?General Examination: ?GENERAL APPEARANCE:?Reveals a pleasant, alert, well nourished, well- developed, well hydrated individual, who demonstrates proper attention to hygiene/body habitus, and is in no acute distress, Pt serves as own historian for office visit today.?ORIENTED:?person, place, and time.?Dermatologic: ?SKIN FINDINGS:?skin exam reveals keratotic lesion(s) located at, SUB MTH (s), 1, 5, B/L ,, Plantar Heel(s), B/L.?Neurological: ?SENSORY:? Neurological exam demonstrates, reduced vibration sensation, reduced light touch sensation, reduced vibration sensation, 5.07 monofilament test performed at plantar aspects of 5 varied sites per foot shows sensation, absent, at Forefoot, B/L ,?.?Vascular: ?DP PULSES (B):?2/4, B/L ,.?PT PULSES (B):?2/4, B/L?.?Nails: ?NAILS are:?elongated,overgrown,dystrophic,greater than 3mm thick,discolored and friable with crumbly malodorous subungual debris, with dull to no pain on palpation due to neuropathy, , , 1-5 B/L.? Assessment: * Assessment: 1.?Tinea unguium - B35.1???2 .?Type 2 diabetes mellitus with diabetic polyneuropathy - E11.42 (Primary)??? Plan: * Treatment: 2.?Tinea unguium?Procedure: 31743-[id number] NAIL, 6 OR MORE * Procedures:?Debride Nail 6-10:?Nail debridement?Due to the clinical pathology outlined in the exam findings, performance of this nail treatment is medically necessary as its management by an unskilled/untrained nonprofessional would put this patients foot and overall health at risk. Therefore, debridement to affected nail(s), as described in exam ( TA, T1, T2, T3, T4, T5, T6, T7, T8, T9, ), was performed exclusively by the physician of record to reduce/remove overall nail length, girth, thickness, subungual debris, and necrotic tissue, by manual and/or electrical means through the use of a nail nipper and/or dremel-type shear grinder operator, to a more viable healthy nail plate or bed tissue 6- 10 nails in total. Silver nitrate was used for any petechial bleeding as necessary. Definitive antifungal treatment options, both pharmaceutical and surgical, have been reviewed and discussed with the patient. The patient solely prefers the use of intermittent/as needed professional debridement services for their nail condition and understands the need for additional periodic treatments to maintain effectiveness in symptomatic relief - 38807.?Keratoma Treatment:?Parring or Cutting of Benign Hyperkeratotic Lesion(s)?(-57) More than 4 Lesions - Due to the at risk nature of the patients medical condition as documented in the exam findings, performance of this keratoderma treatment is medically necessary as its management by an unskilled/untrained nonprofessional would put this patients foot and overall health at risk. Therefore, the benign hyperkeratotic lesions, ( 6) in total, locations as stated and described in the exam (??SUB MTH (s),?1,?5,?B/L?,,?Plantar Heel(s),?B/L?), were pared, and/or cut utilizing a sterile 15 blade, tissue nippers, and/or power dremel instrumentation by the physician of record - 60862.? * Procedure Codes:?52612 DEBRI DE NAIL, 6 OR MORE, Modifiers: XS 23143 TRIM SKIN LESIONS, OVER 4, Modifiers: XS * Preventive Medicine:? ??Screening/Special Tests:?Fall Risk?Screening:?No falls in the past year ?FALLS: Screening for Future Fall Risk?Have you had any falls with injury in the past year??No * Follow Up:?3 Months * Images: * Sign off status: Completed true * Provider:?Sussy Lowery DPM Date:?2024 Generated for Tu schrader/Yang/eTransmitting on:?08/29/2024 07:06 AM EDT History and Physical Notes * HPI (History of Present Illness) Category Sub-Category Detail Notes Category Not es At Risk footcare Pt States Last PCP Visit: Date: 4 Examination Category Sub-Category Detail Notes Category Not es Ingrown Nail INSPECTION: Neurological SENSORY: Neurological exa m demonstrates, reduced vibration sensation, reduced light touch sensation, reduced vibration sensation, 5.07 monofilament test performed at plantar aspects of 5 varied sites per foot shows sensation, absent, at Forefoot, B/L , Dermatologic SKIN FINDINGS: skin exam reveal s keratotic lesion(s) located at, SUB MTH (s), 1, 5, B/L ,, Plantar Heel(s), B/L ULCER: General Examination GENERAL APPEARANCE: Reveals a pleasant, alert, well nourished, well-developed, well hydrated individual, who demonstrates proper attention to hygiene/body habitus, and is in no acute distress, Pt serves as own historian for office visit today ORIENTED: person, place, and t link Ophthalmology Referral DIABETES EYE EXAM Procedure Perform ed:: No Eye Exam not performed:: No reason speci fied Findings of Diabetic Eye Exam:: retinopa thy Vascular DP PULSES (B): 2/4, B/L , PT PULSES (B): 2/4, B/L Nails NAILS are: elongated,overgr own,dystrophic,greater than 3mm thick,discolored and friable with crumbly malodorous subungual debris, with dull to no pain on palpation due to neuropathy, , , 1-5 B/L Heel Pain INSPECTION:
--- OUTSIDE RECORDS SUMMARY | 2024-08-29 07:06 | XMS_ITS | Encounter Summary ---
Author Name [facility] [place] Organization [facility] [place] [place] Address [address] [place] [address] Care Team Providers Care Semiconductor Testing Group Leader Name Role Phone ELISSA TRUJILLO Primary Care Provider [facility] Insurance Providers: All historical and [...] MEDICARE SUPPLEMEN MARIEL Apr 27, 2012 PLAN [id number] [place] PATIENT AAR MED [facility] MEDICARE SUPPLEMEN MARIEL Apr 27, 2012 [facility] [id number] [place] PATIENT MEDICARE (WNR) MEDICARE (M) PART A 2011 PART A [id number] [place] PATIENT MEDICARE (WNR) MEDICARE (M) PART B 2011 PART B [id number] [place] PATIENT Selected Encounter This section includes the information on record at [place] for the Encounter. Date/Time Encounter Type Encounter Description Reason Provider Source Dec 19, 2023 02:00 PM OFFICE O/P NEW LOW 30 MIN PODIATRY ICD-10-CM E11.51 Type 2 diabetes w diabetic peripheral angiopath w/o gangrene ANABEL SWEET Lily Encounter Template Text not used by [place] Assessments - Encounter Diagnoses This section includes [...] care activities for the patient from all [place] treatmentfacilities. This section includes future appointments and future orders which are active, pending or scheduled. Future Appointments This section includes appointments that were scheduled to occur 6 months from the date of the Encounter, up to a maximum of 20 appointments. The data comes from all [place] treatment facilities. Appointment Date/Time Appointment Type Appointme nt Facility Name Feb 15, 2024 09:00 AM AMBULATORY - MEDICINE [facility] Mar 06, 2024 03:00 PM AMBULATORY - MEDICINE [facility] Social History: Smoking Status (Most current) and Tobacco Use (All prior to encounter date) This section includes the most current, and the historical, smoking and tobacco- related health factors from the [place] facility where the Encounter took place. Current Smoking Status This section includes the most current smoking, or tobacco-related health factor, from the [place] facility where the Encounter took place. Date/Time Current Smoking Status Comment Padmini willingham Feb 14, 2023 01:30 PM CO-TOBACCO NEVER USED [place] Tobacco Use History This section includes a history of the smoking, or tobacco-related health factors, that were collected on or before the date of the Encounter. The data comes from the [place] facility where the Encounter took place. Date/Time Smoking Status/Tobacco Use Comment F acshaneka Jan 27, 2022 02:00 PM CO-TOBACCO NEVER USED [place] Nov 08, 2017 10:02 AM CO-TOBACCO NEVER USED [place] Nov 08, 2017 08:55 AM LIFETIME NON-TOBACCO USER [place] Nov 08, 2016 09:08 AM LIFETIME NON-TOBACCO USER [place] October 21, 2015 02:24 PM LIFETIME NON-TOBACCO USER [place] Sep 10, 2012 09:28 AM LIFETIME NON-TOBACCO USER [place] Encounter Notes: All associated encounter notes This section contains the clinical notes associated to the Encounter. Date/Time Encounter Note(s) Provider Source Jan 08, 2024 09:46 AM PODIATRY NOTE: LOCAL TITLE: PODIATRY NOTE STANDARD TITLE: PODIATRY NOTE DATE OF NOTE: JAN 08, 2024@09:46 ENTRY DATE: JAN 08, 2024@09:46:15 AUTHOR: SYLVIA GARCIA EXP COSIGNER: URGENCY: STATUS: COMPLETED F:Called REUBEN Patterson JULIO CNAGA, PATIENT PHONE - re:Shoe fitting D:Pt was called and informed that their shoes and or orthotics have arrived at the [facility] [place] located at [address] [place] [address]. A/P: pt informed they may flower picker their shoes and or orthotics at their convenience any day, Sunday through Sundaybetween 8:30am and 3:30pm and Sunday 8:30am and 3:30pm. They do not need an appointment. But we do request that they call before arriving to make sure the Podiatry Health Bus Mechanic is available on that day. No barriers; Patient understands and agrees to current plan. /med/ SYLVIA GARCIA HEALTH WELL TESTER Signed: 01/08/2024 09:46 SYLVIA GARCIA [place] Jan 01, 2024 08:18 AM LETTERS: LOCAL TITLE: PATIENT LETTER (B) STANDARD TITLE: LETTERS DATE OF NOTE: JAN 01, 2024@08:18 ENTRY DATE: JAN 01, 2024@08:18:19 AUTHOR: SYLVIA GARCIA EXP COSIGNER: URGENCY: STATUS: COMPLETED [facility] [place] [address] [phone] * REUBEN Patterson DANDRE [address], [place] [address] Date: JAN 01, 2024 Dear Holliday: This is a reminder letter that your SHOES are ready for pick at the [facility] [place] located at [address] [place] [address]. You may flower picker your shoes and or orthotics at your convenience any day, Sunday through Sunday between 8:30am and 3:30pm. You do not need an appointment. BUT WE DO REQUEST THAT YOU CALL BEFORE ARRIVING TO MAKE SURE THE PODIATRY HEALTH WELL TESTER IS AVAILABLE ON THAT DAY. Call [phone] for Sylvia if you have any questions. We hope to see you soon, Sincerely, Office Staff for:ELISSA TRUJILLO Care Provider Upcoming Appointments: 03/06/2024 15:00 CWM/SO/PACT 1 GEAR TOOTH GRINDING MACHINE OPERATOR SYLVIA GARCIA [place] Dec 19, 2023 08:22 AM PODIATRY CONSULT: LOCAL TITLE: CONSULT REPORT/PODIATRY STANDARD TITLE: PODIATRY CONSULT DATE OF NOTE: DEC 19, 2023@08:22 ENTRY DATE: DEC 19, 2023@08:22:35 AUTHOR: ANABEL SWEET COSIGNER: URGENCY: STATUS: COMPLETED NAME: REUBEN AMOS DATE: DEC 19, 2023 : Aug PCP: ELISSA TRUJILLO LAST SEEN: INITIAL CONSULT VISIT TODAY NOTE: HAS RECEIVED BOTH COVID VACCINE DOSES + [address] [facility] HPI: Pt. is a 78 yo alert [...] IS BEING TREATED BY WOUND CARE IN [place] AND IS BEING SEEN FOR VASCULAR SURGEON AT [facility] AND HAS A ASBESTOS SIDING INSTALLER WELL : DR. JUAREZ AT [facility] FOR HIS NAILS AND CALLUS has [...] the source for the followin. Hyperlipidemia (SCT 79052256) 2. Psoriasis 3. Pressure injury of buttock 4. Pain in right hip joint 5. At risk of pressure ulcer (SNOMED CT 080490828) 6. Iron deficiency anemia 7. OA - Osteoarthritis of hip 8. Polyp of colon 9. Osteoarthritis 10. DM - Diabetes mellitus (SNOMED CT 44223871) 11. HTN - Hypertension (SNOMED CT 36488044) 12. Postsurgical Status of Cataract Extraction *NOTE: [...] IS BEING TTREATED AT WOUND CARE IN [place] AND DID NOT WISH ANY CARE TO [...] present physical-medical status. Protective sensation utilizing a [place]ori lOg monofilament is 0/10 bilateral. PATIENT RELATES [...] HAVE ANY OTHER CARE HE HAS A ASBESTOS SIDING INSTALLER IN [place] WHO HE SEES JENNIFER 2-3 MONTHS AND [...] of active outpatient prescriptions dispensed from this [place] (local) and dispensed from another [place] or [facility] facility (remote) as well as inpatient [...] or non-VA provider. /med/ ANABEL SWEET DPM ASBESTOS SIDING INSTALLER Signed: 12/19/2023 16:23 ANABEL SWEETFIELD
--- OUTSIDE RECORDS SUMMARY | 2024-08-29 07:06 | XMS_ITS ---
Author Organization [facility] Address [address] [facility] [place] [address] Care Team Providers Care Mixed Livestock Farm Worker Name Role Phone Marina MCDANIELS, Nubia Zelaya Primary Care Provider Un available SebastiánUcheSussy Unavailable [phone] REASON FOR VISIT r/s 09/04 Encounters Encounter Location Date Provider Diagnosis [address] [address] 06/03/2024 Sussy Lowery Plan Of Treatment Next Appt Details Provider Name:Sussy Lowery , 09/01/2024 01:00:00 PM, [address] [place], [address], Progress Notes * SOTERO TobinDOB:1945 ( 78 yo M)Acc No.[id number]:06/03/2024 Patient:?SOTERO Tobin :1945???Age:78 Y???Sex:Male Address:[place], [address] * true * Date:? Generated for Printi ng/Faflorg/eTransmitting on:?08/29/2024 07:06 AM EDT
--- OUTSIDE RECORDS SUMMARY | 2024-08-29 07:07 | XMS_ITS | Encounter Summary ---
Author Organization [facility] Address [address] [place] [address] Care Team Providers Care Heavy Equipment Engine Mechanic Name Role Phone Jagjit [facility] Primary Care Provider Gigi price Encounter Details Date Type Department Care Team (Latest Contact Info) Description 07/26/[address] [facility] - [facility] Lab [address] [place] [phone] Rebecca Gomez MD [address] [place] [address] Essential (primary) hypertension; Anemia, unspecified; Cellulitis, unspecified; [...] Associated Diagnosis Comments COMPLETE BLOOD COUNT Routine 07/28/2024 7:32 AM EST Essential (primary) hypertension Anemia, unspecified Cellulitis, unspecified Type 2 diabetes mellitus without complications (CMS/HCC) COMPREHENSIVE METABOLIC PANEL Routine 07/28/2024 7:32 AM EST Essential (primary) hypertension Anemia, unspecified Cellulitis, unspecified Type 2 diabetes mellitus without complications (CMS/HCC) documented in this encounter Results * (ABNORMAL) Comprehensive metabolic panel (07/28/2024 7:32 AM EST) Sodium 136 133 - 145 mmol/L LAB CHEMISTRY METHOD 07/28/2024 1:[address] [facility] Potassium 4.3 3.5 - 5.5 mmol/L LAB CHEMISTRY METHOD 07/28/2024 1:[address] [facility] Chloride 100 96 - 110 mmol/L LAB CHEMISTRY METHOD 07/28/2024 1:[address] [facility] CO2 24 21 - 32 mmol/L LAB CHEMISTRY METHOD 07/28/2024 1:[address] [facility] Anion Gap 12(H) 3 - 11 LAB CHEMISTRY METHOD 07/28/2024 1:[address] [facility] Glucose 103(H) 70 - 100 mg/dL LAB CHEMISTRY METHOD 07/28/2024 1:[address] [facility] BUN 28(H) 5 - 25 mg/dL LAB CHEMISTRY METHOD 07/28/2024 1:[address] [facility] Creatinine 1.06 0.70 - 1.30 mg/dL LAB CHEMISTRY METHOD 07/28/2024 1:[address] [facility] eGFR 72 >=60 mL/min/1. 73m2 LAB CHEMISTRY METHOD 07/28/2024 1:[address] [facility] Comment:Calculation based on the??Chronic Kidney Disease Epidemiology Collaboration (CKD-EPI) equation refit??without adjustment for race. BUN/Creatinine Ratio 26.4 LAB CHEMISTRY METHOD 07/28/2024 1:[address] [facility] Calcium 9.1 8.5 - 10.5 mg/dL LAB CHEMISTRY METHOD 07/28/2024 1:[address] [facility] AST (SGOT) 19 10 - 42 unit/L LAB CHEMISTRY METHOD 07/28/2024 1:[address] [facility] ALT (SGPT) 18 10 - 60 unit/L LAB CHEMISTRY METHOD 07/28/2024 1:[address] [facility] Alkaline Phosphatase 88 42 - 121 unit/L LAB CHEMISTRY METHOD 07/28/2024 1:46 PM EST [facility] Total Protein 6.7 6.0 - 8.0 g/dL LAB CHEMISTRY METHOD 07/28/2024 1:46 PM EST [facility] Albumin 3.3 3.2 - 5.0 g/dL LAB CHEMISTRY METHOD 07/28/2024 1:[address] [facility] Total Bilirubin 0.5 0.0 - 1.4 mg/dL LAB CHEMISTRY METHOD 07/28/2024 1:[address] [facility] Blood Venous blood specimen / Unknown Venipuncture / Unknown 07/28/2024 7:32 AM EST 07/28/2024 11:16 AM EST us Rebecca Gomez MD LAB BLOOD ORDERABLES Final Resul t [facility] [address] [place] [address], * (ABNORMAL) Complete blood count (07/28/2024 7:32 AM EST) WBC 5.6 4.8 - 10.8 K/mcL LAB HEMETOLOGY METHOD 07/28/2024 1:[address] [facility] RBC 4.50 4.50 - 5.50 M/mcL LAB HEMETOLOGY METHOD 07/28/2024 1:[address] [facility] Hemoglobin 12.5(L) 13.5 - 17.5 g/dL LAB HEMETOLOGY METHOD 07/28/2024 1:[address] [facility] Hematocrit 38.5(L) 42.0 - 54.0 % LAB HEMETOLOGY METHOD 07/28/2024 1:[address] [facility] MCV 86.5 79.0 - 98.0 FL LAB HEMETOLOGY METHOD 07/28/2024 1:32 PM EST [facility] MCH 28.1 27.0 - 32.0 pcg LAB HEMETOLOGY METHOD 07/28/2024 1:32 PM EST [facility] MCHC 32.5 32.0 - 37.0 g/dL LAB HEMETOLOGY METHOD 07/28/2024 1:[address] [facility] RDW 13.8 11.0 - 15.0 % LAB HEMETOLOGY METHOD 07/28/2024 1:32 PM EST [facility] Platelets 265 130 - 400 K/mcL LAB HEMETOLOGY METHOD 07/28/2024 1:[address] [facility] MPV 9.7 7.0 - 11.0 FL LAB HEMETOLOGY METHOD 07/28/2024 1:[address] [facility] NRBC 0.0 <1.0 % LAB HEMETOLOGY METHOD 07/28/2024 1:[address] [facility] NRBC Absolute 0.00 <0.10 K/mcL LAB HEMETOLOGY METHOD 07/28/2024 1:[address] [facility] Blood Venous blood specimen / Unknown Venipuncture / Unknown 07/28/2024 7:32 AM EST 07/28/2024 11:16 AM EST Rebecca Gomez MD LAB BLOOD ORDERABLES Final Resul t [facility] [address] [place] [address], documented in this encounter Visit Diagnoses Diagnosis Essential (primary) hypertension Unspecified essential hypertension Anemia, unspecified Cellulitis, unspecified Type 2 diabetes mellitus without complications documented in this encounter Additional Health Concerns Infection Onset Date Last Indicated Resolved Time C. difficile 08/02/2024 08/02/2024 08/26/2024 7:06 PM EDT C. Diff Rule-Out Infection 08/03/2024 08/02/2024 0 08/03/2024 11:45 AM EDT documented as of this encounter Care Teams Heavy Equipment Engine Mechanic Relationship Specialty Start Date End Date Jagjit Hancock PA [address] [place] [phone] PCP - General Physician Hop Sorter 07/23/24 documented as of this encounter
--- OUTSIDE RECORDS SUMMARY | 2024-08-29 07:07 | XMS_ITS | Encounter Summary ---
Author Organization [facility] Address [address] [place] [address] Care Team Providers Care Story Reader Name Role Phone Jagjit [facility] Primary Care Provider Gigi price Encounter Details Date Type Department Care Team (Late st Contact Info) Description 08/03/[address] [facility] Lab [address] [place] [phone] Mary Cotter PA [address] [place] [id number] Diarrhea, unspecified Social History Tobacco Use Types Packs/Day Years [...] Procedure Name Priority Date/Time Associated Diagnosis Comments CLOSTRIDIUM DIFFICILE PCR Routine 08/02/2024 7:40 PM EST Diarrhea, unspecified CLOSTRIDIUM DIFFICILE TOXIN Routine 08/02/2024 7:40 PM EST Diarrhea, unspecified documented in this encounter Results * (ABNORMAL) Clostridium difficile molecular study (08/02/2024 7:40 PM EST) Clostridium difficile PCR Positive (AA) Negative LAB MICROBIOLOGY METHOD 08/03/2024 12:41 PM EDT [facility] Comment: CRITICAL RESULT POSITIVE FOR TOXIN PRODUCING CLOSTRIDIOIDES DIFFICILE, NO ADDITIONAL TESTING IS NECESSARY. REPEAT SAMPLES SHOULD NOT BE SUBMITTED FOR TEST OF CURE. Stool Rectum structure / Unknown Non-blood Collection / Unknown 08/02/2024 7:40 PM EST 08/03/2024 11:45 AM EDT [facility] MICROBIOLOGY - GENERAL ORD ERABLES Final Result Performing Organization Address City[facility]/ZIP Co de Phone Number [facility] [address] [place] [address], [place] [phone] * Clostridium difficile toxin (08/02/2024 7:40 PM EST) C difficile Toxins A+B, EIA 08/03/2024 11:45 AM EDT [facility] Comment:Refer to C. difficil e PCR assay for results. Stool Rectum structure / Unknown Non-blood Collection / Unknown 08/02/2024 7:40 PM EST 08/03/2024 10:19 AM EDT [facility] MICROBIOLOGY - GENERAL ORD ERABLES Final Result Performing Organization Address [facility] Co de Phone Number [facility] [address] [place] [address], [place] [phone] documented in this encounter Visit Diagnoses Diagnosis Diarrhea, unspecified documented in this encounter Additional Health Concerns Infection Onset Date Last Indicated Resolved Time C. difficile 08/02/2024 08/02/2024 08/26/2024 7:06 PM EDT C. Diff Rule-Out Infection 08/03/2024 08/02/2024 0 08/03/2024 11:45 AM EDT documented as of this encounter Care Teams Story Reader Relationship Specialty Start Date End Date Jagjit Hancock PA [address] [place] [phone] PCP - General Physician Creel Hand 07/23/24 documented as of this encounter
--- OUTSIDE RECORDS SUMMARY | 2024-08-29 07:07 | XMS_ITS | Encounter Summary ---
Author Name [facility] [place] Organization [facility] [place] Address [address] [place] [address] Care Team Providers Care Client Technologies Analyst Name Role Phone ELISSA TRUJILLO Primary Care Provider [facility] Insurance Providers: All historical and [...] MEDICARE SUPPLEMEN MARIEL Apr 27, 2012 PLAN [id number] [place] PATIENT AAR MED [facility] MEDICARE SUPPLEMEN MARIEL Apr 27, 2012 [facility] [id number] [place] PATIENT MEDICARE (WNR) MEDICARE (M) PART A 2011 PART A [id number] [place] PATIENT MEDICARE (WNR) MEDICARE (M) PART B 2011 PART B [id number] [place] PAT[place] Selected Encounter This section includes the information on record at [place] for the Encounter. Date/Time Encounter Type Encounter Description Reason Provider Source Mar 06, 2024 03:00 PM OFFICE O/P EST HI 40 MIN PRIMARY CARE/MEDICINE ICD-10-CM E11.9 Type 2 diabetes mellitus without complications ELISSA TRUJILLO [facility] Encounter Template Text not used by [place] Assessments - Encounter Diagnoses This section includes the primary and secondary diagnoses documented for the Encounter. Date/Time Primary/Secondary Diagnosis Diagnosis Name Provider Source Mar 31, 2024 02:14 PM PRIMARY Type 2 diabetes mellitus without complications TRUJILLO,GIANFRANCO IVAN Mar 31, 2024 02:14 PM SECONDARY Essential (primary) hypertension TRUJILLO,ELISSA Patterson [place] Mar 31, 2024 02:14 PM SECONDARY Hyperlipidemia, unspecified TRUJILLO,ELISSA Patterson [place] Mar 31, 2024 02:14 PM SECONDARY Iron deficiency anemia, unspecified TRUJILLO,ELISSA Patterson [place] Mar 31, 2024 02:14 PM SECONDARY Pain in right hip ELISSA TRUJILLO [place] Mar 31, 2024 02:14 PM SECONDARY Pressure ulcer of unspecified buttock, unspecified stage RONNIEELISSA Patterson [place] Mar 31, 2024 02:14 PM SECONDARY Psoriasis, unspecified ELISSA TRUJILLO Plan of Treatment: Future Appointments (+ 6 months) and Future Tests (+/- 45 days) The Plan of Treatment section includes future care activities for the patient from all [place] treatmentfacilities. This section includes future appointments and future orders which are active, pending or scheduled. Future Appointments This section includes appointments that were scheduled to occur 6 months from the date of the Encounter, up to a maximum of 20 appointments. The data comes from all [place] treatment facilities. Appointment Date/Time Appointment Type Appointme nt Facility Name Jul 17, 2024 02:30 PM AMBULATORY - MEDICINE [facility] Lab Results: +/- 30 days of the encounter This section includes the Chemistry and Hematology Lab Results on record with [place] for the patient. Radiology Reports and Pathology Reports are provided separately, in subsequent sections. Lab Results This section contains the Chemistry/Hematology Results that were resulted 30 days before or 30 daysafter the date of the Encounter. Date/Time Source Result Type Result - Unit Interpretation Reference Range Comment Feb 29, 2024 11:58 AM [place] HEMOGLOBIN A1C PANEL Specimen Type: BLOOD Comment: [...] Aug 15, 2023 02:27 PM Reporting Lab: [address] [address] Performing Lab: [address] [address] HEMOGLOBIN A1C 5.9 H 4.0-5.6 Feb 29, 2024 11:58 AM [place] MICROALBUMIN CREATININE RATIO PANEL Spe cimen Type: URINE No comment entered. Ordering Provider: KEO ANAYA Report Released Date/Time: Aug 15, 2023 02:27 PM Reporting Lab: [address] [address] Performing Lab: [address] [address] MICROALBUMIN/C REATININE RATIO 10.2 mg/g 0-29.9 MICROALBUMIN,Q [...] PM 97.6 66 128/74 98 212 28 [facility] Social History: Smoking Status (Most current) and Tobacco Use (All prior to encounter date) This section includes the most current, and the historical, smoking and tobacco- related health factors from the [place] facility where the Encounter took place. Current Smoking Status This section includes the most current smoking, or tobacco-related health factor, from the [place] facility where the Encounter took place. Date/Time Current Smoking Status Comment Padmini willingham Feb 14, 2023 01:30 PM [place]-TOBACCO NEVER USED [place] Tobacco Use History This section includes a history of the smoking, or tobacco-related health factors, that were collected on or before the date of the Encounter. The data comes from the [place] facility where the Encounter took place. Date/Time Smoking Status/Tobacco Use Comment Mary agudelo Jan 27, 2022 02:00 PM VA-TOBACCO NEVER USED [place] Nov 08, 2017 10:02 AM VA-TOBACCO NEVER USED [place] Nov 08, 2017 08:55 AM LIFETIME NON-TOBACCO USER [place] Nov 08, 2016 09:08 AM LIFETIME NON-TOBACCO USER [place] October 21, 2015 02:24 PM LIFETIME NON-TOBACCO USER [place] Sep 10, 2012 09:28 AM LIFETIME NON-TOBACCO USER [place] Encounter Notes: All associated encounter notes This [...] DANDRE, is a 78 yo WHITE MALE who presents at the [place] [facility]. 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 He was last seen here by Dr. Anaya in July. He is comanaged with a community PCP. He has continued to follow with wound care at [facility]. He had a right total hip replacement scheduled in July that was postponed due to the pressure wounds. It has been rescheduled to early 2024 contingent on status of his pressure ulcers. No recent illnesses or ED UC visits. No falls. Recent labs were reviewed with the . All medications were reconciled during this visit. HEALTHCARE PROVIDERS: Community PCP: Dr. Gray Derm: [facility] Wound: [facility] Podiatry: [facility]. Social Hx: He is and lives with his . He has never smoked. He drinks alcohol rarely. No MJ or illicits. 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 He previously exercised thrice weekly but this has decreased considerably due to pain in his right hip. He does continue chair exercises as tolerated. Family history is notable for mother, brother, and maternal nephew with diabetes. HISTORY: PERIOD OF SERVICE - [employer] FROM JUL 1965 TO JUN 1969 COMBAT SERVICE INDICATED: No MEDICAL HISTORY Active Problem Hyperlipidemia (SCT 19638199) E78.5 08/15/2023 KEO ANAYA Psoriasis L40.9 08/15/2023 [...] GLORY SANTAMARIA HTN - Hypertension ([place] [address] 01/27/2022 VANESSA ELLIS Postsurgical Status of Cataract [...] extremities, or unilateral weakness. EXAMINATION General: Older [place] in no obvious distress. Mental Status: Alert [...] is the source for the following: Hyperlipidemia ([facility] 40503053): Lipid panel WNL as are LFTs. Continue rosuvastatin. Psoriasis: Follows with [facility]. Maintained on tacrolimus ointment. Pressure injury of buttock: As noted, he is followed closely by [facility] wound clinic. Wounds without evidence of infection. Continue tacrolimus. Pain in right hip joint: Planned right THR early next year. Surgery is contingent on more healing of buttock wounds. Iron deficiency anemia: H/H largely normal in July. Recheck prior to next visit. Of note, he is not maintained on an iron supplement at this time. DM - Diabetes mellitus (SNOMED CT 89263893): Stable with HbA1c 5.9%. Follows a diabetic diet closely. Continue metformin 1000 mg twice daily and semaglutide. HTN - Hypertension (SNOMED CT 64521660): Blood pressure within target today at 128/74. He is maintained on several agents including metoprolol tartrate, losartan, HCTZ, and spironolactone. FOLLOW UP: RTC Below & sooner PRN UPCOMING APPOINTMENTS: 07/17/2024 14:30 CWM/SO/PACT 1 CURVE SAW OPERATOR 40 minutes spent in patient evaluation, data [...] this [facility] (local) and dispensed from another [place] or [facility] facility (remote) as well as [...]
--- OUTSIDE RECORDS SUMMARY | 2024-08-29 07:07 | XMS_ITS | Encounter Summary ---
Author Organization [facility] Address [address] [place] [address] Care Team Providers Care Developer Designer Name Role Phone Jagjit Hancock Primary Care Provider Gigi price Encounter Details Date Type Department Care Team (Latest Contact Info) Description 07/23/2024 Lab Requisition [facility] - Main Lab [address] [facility] [place] [phone] Jagjit Hancock PA [address] [place] [phone] Hyperlipidemia, unspecified; Essential (primary) hypertension; Anemia, unspecified; Type 2 diabetes mellitus without complications (CMS/HCC); Vitamin D deficiency, unspecified; Cellulitis, unspecified Social History Tobacco Use Types Packs/Day [...] Procedure Name Priority Date/Time Associated Diagnosis Comments LIPID PANEL WITH REFLEX TO DIRECT LDL Routine 07/23/2024 8:56 AM EST Hyperlipidemia, unspecified Essential (primary) hypertension Anemia, unspecified Type 2 diabetes mellitus without complications (CMS/HCC) Vitamin D deficiency, unspecified Cellulitis, unspecified VITAMIN D 25 HYDROXY Routine 07/23/2024 8:56 AM EST Hyperlipidemia, unspecified Essential (primary) hypertension Anemia, unspecified Type 2 diabetes mellitus without complications (CMS/HCC) Vitamin D deficiency, unspecified Cellulitis, unspecified COMPLETE BLOOD COUNT Routine 07/23/2024 8:56 AM EST Hyperlipidemia, unspecified Essential (primary) hypertension Anemia, unspecified Type 2 diabetes mellitus without complications (CMS/HCC) Vitamin D deficiency, unspecified Cellulitis, unspecified THYROID STIMULATING HORMONE Routine 07/23/2024 8:56 AM EST Hyperlipidemia, unspecified Essential (primary) hypertension Anemia, unspecified Type 2 diabetes mellitus without complications (CMS/HCC) Vitamin D deficiency, unspecified Cellulitis, unspecified HEMOGLOBIN A1C Routine 07/23/2024 8:56 AM EST Hyperlipidemia, unspecified Essential (primary) hypertension Anemia, unspecified Type 2 diabetes mellitus without complications (CMS/HCC) Vitamin D deficiency, unspecified Cellulitis, unspecified FOLATE Routine 07/23/2024 8:56 AM EST Hyperlipidemia, unspecified Essential (primary) hypertension Anemia, unspecified Type 2 diabetes mellitus without complications (CMS/HCC) Vitamin D deficiency, unspecified Cellulitis, unspecified VITAMIN B12 Routine 07/23/2024 8:56 AM EST Hyperlipidemia, unspecified Essential (primary) hypertension Anemia, unspecified Type 2 diabetes mellitus without complications (CMS/HCC) Vitamin D deficiency, unspecified Cellulitis, unspecified COMPREHENSIVE METABOLIC PANEL Routine 07/23/2024 8:56 AM EST Hyperlipidemia, unspecified Essential (primary) hypertension Anemia, unspecified Type 2 diabetes mellitus without complications (CMS/HCC) Vitamin D deficiency, unspecified Cellulitis, unspecified documented in this encounter Results * (ABNORMAL) Thyroid stimulating hormone (07/23/2024 8:56 AM EST) TSH 4.10(H) 0.40 - 4.00 mcIU/mL LAB CHEMISTRY METHOD 07/23/2024 1:35 PM EST [facility] Blood Venous blood specimen / Unknown Venipuncture / Unknown 07/23/2024 8:56 AM EST 07/23/2024 10:27 AM EST Jagjit JOHNSON LAB BLOOD ORDERABLES Final Re sult Performing Organization Address [facility]/ZIP Co de Phone Number [facility] [address] [place] [address], [place] [phone] * (ABNORMAL) Folate (07/23/2024 8:56 AM EST) Pathologist [facility] Folate 17.7(H) 2.8 - 17.0 ng/ml LAB CHEMISTRY METHOD 07/23/2024 1:58 PM EST [facility] Blood Venous blood specimen / Unknown Venipuncture / Unknown 07/23/2024 8:56 AM EST 07/23/2024 10:27 AM EST Jagjit JOHNSON LAB BLOOD ORDERABLES Final Re sult Performing Organization Address [facility]/ZIP Co de Phone Number [facility] [address] [place] [address], [place] [phone] * Vitamin B12 (07/23/2024 8:56 AM EST) [facility] [address] Vitamin B-12 761 250 - 900 pcg/mL LAB CHEMISTRY METHOD 07/23/2024 1:58 PM EST [facility] Blood Venous blood specimen / Unknown Venipuncture / Unknown 07/23/2024 8:56 AM EST 07/23/2024 10:27 AM EST Jagjit JOHNSON LAB BLOOD ORDERABLES Final Re sult Performing Organization Address City/[facility]/ZIP Co de Phone Number [facility] [address] [place] [address], [place] [phone] * Vitamin D 25 hydroxy (07/23/2024 8:56 AM EST) Vit D, 25-Hydroxy 41.0 30.0 - 80.0 ng/mL LAB CHEMISTRY METHOD 07/23/2024 1:34 PM EST [facility] Blood Venous blood specimen / Unknown Venipuncture / Unknown 07/23/2024 8:56 AM EST 07/23/2024 10:27 AM EST Jagjit JOHNSON LAB BLOOD ORDERABLES Final Re sult Performing Organization Address [facility]/ZIP Co de Phone Number [facility] [address] [place] [address], [place] [phone] * (ABNORMAL) Hemoglobin A1c (07/23/2024 8:56 AM EST) Hemoglobin A1C 6.6(H) <6.5 % LAB CHEMISTRY METHOD 07/23/2024 9:50 PM EST [facility] Mean Bld Glu Estim. 143 mg/dL LAB CHEMISTRY METHOD 07/23/2024 9:50 PM EST [facility] Blood Venous blood specimen / Unknown Venipuncture / Unknown 07/23/2024 8:56 AM EST 07/23/2024 10:27 AM EST Jagjit JOHNSON LAB BLOOD ORDERABLES Final Re sult Performing Organization Address [facility]/ZIP Co de Phone Number [facility] [address] [place] [address], [place] [phone] * Lipid panel with reflex to direct LDL (07/23/2024 8:56 AM EST) Cholesterol 117 0 - 200 mg/dL LAB CHEMISTRY METHOD 07/23/2024 1:58 PM EST [facility] Triglycerides 136 0 - 150 mg/dL LAB CHEMISTRY METHOD 07/23/2024 1:58 PM EST [facility] HDL 53 >=40 mg/dL LAB CHEMISTRY METHOD 07/23/2024 1:58 PM EST [facility] LDL Calculated 37 0 - 100 mg/dL LAB CHEMISTRY METHOD 07/23/2024 1:58 PM EST [facility] VLDL Cholesterol Quique 27.2 mg/dL LAB CHEMISTRY METHOD 07/23/2024 1:58 PM [facility] Non HDL Chol. (LDL+VLDL) 64 <145 mg/dL LAB CHEMISTRY METHOD 07/23/2024 1:58 PM [facility] Chol/HDL Ratio 2.2 0.0 - 4.4 LAB CHEMISTRY METHOD 07/23/2024 1:58 PM [facility] Blood Venous blood specimen / Unknown Venipuncture / Unknown 07/23/2024 8:56 AM EST 07/23/2024 10:27 AM EST us Jagjit JOHNSON LAB BLOOD ORDERABLES Final Re sult [facility] [address] [place] [address], * (ABNORMAL) Comprehensive metabolic panel (07/23/2024 8:56 AM EST) Sodium 137 133 - 145 mmol/L LAB CHEMISTRY METHOD 07/23/2024 1:58 PM [facility] Potassium 4.1 3.5 - 5.5 mmol/L LAB CHEMISTRY METHOD 07/23/2024 1:58 PM [facility] Chloride 103 96 - 110 mmol/L LAB CHEMISTRY METHOD 07/23/2024 1:58 PM [facility] CO2 23 21 - 32 mmol/L LAB CHEMISTRY METHOD 07/23/2024 1:58 PM [facility] Anion Gap 11 3 - 11 LAB CHEMISTRY METHOD 07/23/2024 1:58 PM [facility] Glucose 156(H) 70 - 100 mg/dL LAB CHEMISTRY METHOD 07/23/2024 1:58 PM [facility] BUN 19 5 - 25 mg/dL LAB CHEMISTRY METHOD 07/23/2024 1:58 PM [facility] Creatinine 1.17 0.70 - 1.30 mg/dL LAB CHEMISTRY METHOD 07/23/2024 1:58 PM [facility] eGFR 64 >=60 mL/min/1. 73m2 LAB CHEMISTRY METHOD 07/23/2024 1:58 PM [facility] Comment:Calculation based on the??Chronic Kidney Disease Epidemiology Collaboration (CKD-EPI) equation refit??without adjustment for race. BUN/Creatinine Ratio 16.2 LAB CHEMISTRY METHOD 07/23/2024 1:58 PM [facility] Calcium 9.1 8.5 - 10.5 mg/dL LAB CHEMISTRY METHOD 07/23/2024 1:58 PM [facility] AST (SGOT) 23 10 - 42 unit/L LAB CHEMISTRY METHOD 07/23/2024 1:58 PM [facility] ALT (SGPT) 21 10 - 60 unit/L LAB CHEMISTRY METHOD 07/23/2024 1:58 PM [facility] Alkaline Phosphatase 96 42 - 121 unit/L LAB CHEMISTRY METHOD 07/23/2024 1:58 PM [facility] Total Protein 6.9 6.0 - 8.0 g/dL LAB CHEMISTRY METHOD 07/23/2024 1:58 PM [facility] Albumin 3.1(L) 3.2 - 5.0 g/dL LAB CHEMISTRY METHOD 07/23/2024 1:58 PM [facility] Total Bilirubin 0.5 0.0 - 1.4 mg/dL LAB CHEMISTRY METHOD 07/23/2024 1:58 PM [facility] Blood Venous blood specimen / Unknown Venipuncture / Unknown 07/23/2024 8:56 AM EST 07/23/2024 10:27 AM EST us Jagjit JOHNSON LAB BLOOD ORDERABLES Final Re sult [facility] [address] [place] [address], * (ABNORMAL) Complete blood count (07/23/2024 8:56 AM EST) [facility] [address] WBC 6.5 4.8 - 10.8 K/mcL LAB HEMETOLOGY METHOD 07/23/2024 12:33 PM [facility] RBC 4.60 4.50 - 5.50 M/mcL LAB HEMETOLOGY METHOD 07/23/2024 12:33 PM [facility] Hemoglobin 12.7(L) 13.5 - 17.5 g/dL LAB HEMETOLOGY METHOD 07/23/2024 12:33 PM [facility] Hematocrit 39.8(L) 42.0 - 54.0 % LAB HEMETOLOGY METHOD 07/23/2024 12:33 PM [facility] MCV 86.3 79.0 - 98.0 FL LAB HEMETOLOGY METHOD 07/23/2024 12:33 PM [facility] MCH 27.5 27.0 - 32.0 pcg LAB HEMETOLOGY METHOD 07/23/2024 12:33 PM [facility] MCHC 31.9(L) 32.0 - 37.0 g/dL LAB HEMETOLOGY METHOD 07/23/2024 12:33 PM [facility] RDW 13.8 11.0 - 15.0 % LAB HEMETOLOGY METHOD 07/23/2024 12:33 PM [facility] Platelets 280 130 - 400 K/mcL LAB HEMETOLOGY METHOD 07/23/2024 12:33 PM [facility] MPV 9.1 7.0 - 11.0 FL LAB HEMETOLOGY METHOD 07/23/2024 12:33 PM [facility] NRBC 0.0 <1.0 % LAB HEMETOLOGY METHOD 07/23/2024 12:33 PM [facility] NRBC Absolute 0.00 <0.10 K/mcL LAB HEMETOLOGY METHOD 07/23/2024 12:33 PM EST [facility] Blood Venous blood specimen / Unknown Venipuncture / Unknown 07/23/2024 8:56 AM EST 07/23/2024 10:27 AM EST us Jagjit JOHNSON LAB BLOOD ORDERABLES Final Re sult [facility] [address] [place] [address], documented in this encounter Visit Diagnoses Diagnosis Hyperlipidemia, unspecified Essential (primary) hypertension Unspecified essential hypertension Anemia, unspecified Type 2 diabetes mellitus without complications Vitamin D deficiency, unspecified Cellulitis, unspecified documented in this encounter Additional Health Concerns Infection Onset Date Last Indicated Resolved Time C. difficile 08/02/2024 08/02/2024 08/26/2024 7:06 PM EDT C. Diff Rule-Out Infection 08/03/2024 08/02/2024 0 08/03/2024 11:45 AM EDT documented as of this encounter Care Teams Developer Designer Relationship Specialty Start Date End Date Jagjit Hancock PA [address] [place] [address] [place] [phone] PCP - General Physician [employer] 07/23/24 documented as of this encounter
--- OUTSIDE RECORDS SUMMARY | 2024-08-29 07:07 | XMS_ITS | Clinical Summary ---
Author Organization [address] Address [address] [place] [phone] Phone Care Team Providers Care Corn Husk Baler Name Role Phone Jagjit Hancock Primary Care Provider Ggii price Encounters Date Type Department Care Team Description 08/16/2024 Lab Requisition [facility] [address] [place] [phone] Rebecca Gomez MD Essential (primary) hypertension; Anemia, unspecified; Cellulitis, unspecified; Type 2 diabetes mellitus without complications (CMS/HCC) 08/08/2024 Lab Requisition [facility] Lab [address] [place] [address] Rebecca Gomez MD Essential (primary) hypertension; Anemia, unspecified; Cellulitis, unspecified; Type 2 diabetes mellitus without complications (CMS/HCC) 08/03/2024 Lab Requisition [facility] Lab [address] [place] [phone] Mary Cotter PA Diarrhea, unspecified 08/02/2024 Lab Requisition [facility] [address] [place] [address] Rebecca Gomez MD Essential (primary) hypertension; Anemia, unspecified; Cellulitis, unspecified; Type 2 diabetes mellitus without complications (CMS/HCC) 07/26/2024 Lab Requisition [facility] Lab [address] [place] [phone] Rebecca Gomez MD Essential (primary) hypertension; Anemia, unspecified; Cellulitis, unspecified; Type 2 diabetes mellitus without complications (CMS/HCC) 07/23/2024 Lab Requisition [facility] Lab [address] [facility] [place] [address] Jagjit Hancock PA Hyperlipidemia, unspecified; Essential (primary) hypertension; Anemia, unspecified; Type 2 diabetes mellitus without complications (CMS/HCC); Vitamin D deficiency, unspecified; Cellulitis, unspecified from Last 3 Months Social History Tobacco Use Types Packs/Day Years Used Date Smoking Tobacco: Never Assessed Sex and Gender Information Value Date Recorded Sex Assigned at Not on file Legal Sex Male 3:28 AM EST Gender Identity Not on file Sexual Orientation Not on file Plan of Treatment Health Maintenance Due Date Last Done Comments Diabetes: Annual Foot Exam 1955 Diabetes: Annual Retina Eye Exam 1955 Pneumococcal Vaccine: 50+ Years (2 of 2 - PPSV23) 12/16/2015 10/21/2015, 09/26/2011 RSV Immunization Adult Patients (1 - 1-dose 75+ series) 2021 Depression Screening 03/22/2024 Falls Risk Assessment 03/22/2024 Hepatitis C Screening 03/22/2024 Medicare Annual Wellness Visit 03/22/2024 Social Influencers of Health Screening 03/22/2024 Diabetes: Annual Urine Albumin-Creatinine Ratio (uACR) 07/23/2024 Diabetes: Blood Sugar Control Test (HGBA1C) 01/20/2025 07/23/2024 Diabetes: Annual GFR (Glomerular Filtration Rate) 08/18/2025 08/18/2024, 08/11/2024, 08/04/2024, Additional history exists Hypertension/CHF/CAD Annual BMP Blood Test 08/18/2025 08/18/2024, 08/11/2024, 08/04/2024, Additional history exists DTaP,Tdap,and Td Vaccines (5 - Td or Tdap) 12/09/2027 12/08/2017, 11/08/2017, 11/08/2017, Additional history exists Cholesterol Screening (Lipid Panel) 07/23/2029 07/23/2024 Zoster Vaccines Completed 02/07/2018, 10/26, 10/14/2013 COVID-19 Vaccine Completed 03/06/2024, , 05/02/2022, Additional history exists Influenza Vaccine Completed 03/06/2024, , 03/01/2021, Additional history exists HIB Vaccines Aged Out No longer eligi ble based on patient's age to complete this topic HPV Vaccines Aged Out No longer eligi ble based on patient's age to complete this topic Hepatitis A Vaccines Aged Out No long er eligible based on patient's age to complete this topic Hepatitis B Vaccines Aged Out No long er eligible based on patient's age to complete this topic IPV Vaccines Aged Out No longer eligi ble based on patient's age to complete this topic MMR Vaccines Aged Out No longer eligi ble based on patient's age to complete this topic Meningococcal ACWY Vaccine Aged Out N o longer eligible based on patient's age to complete this topic Meningococcal B Vacine Aged Out No lo nger eligible based on patient's age to complete this topic RSV Immunization Patients Under 20 months Aged Out No longer eligible based on patient's age to complete this topic Varicella Vaccines Aged Out No longer eligible based on patient's age to complete this topic Procedures Procedure Name Priority Date/Time Associated Diagnosis Comments COMPREHENSIVE METABOLIC PANEL Routine 08/18/2024 7:18 AM EDT Essential (primary) hypertension Anemia, unspecified Cellulitis, unspecified Type 2 diabetes mellitus without complications COMPLETE BLOOD COUNT Routine 08/18/2024 7:18 AM EDT Essential (primary) hypertension Anemia, unspecified Cellulitis, unspecified Type 2 diabetes mellitus without complications COMPREHENSIVE METABOLIC PANEL Routine 08/11/2024 6:40 AM EDT Essential (primary) hypertension Anemia, unspecified Cellulitis, unspecified Type 2 diabetes mellitus without complications (CMS/HCC) COMPLETE BLOOD COUNT Routine 08/11/2024 6:40 AM EDT Essential (primary) hypertension Anemia, unspecified Cellulitis, unspecified Type 2 diabetes mellitus without complications (CMS/HCC) COMPREHENSIVE METABOLIC PANEL Routine 08/04/2024 8:03 AM EDT Essential (primary) hypertension Anemia, unspecified Cellulitis, unspecified Type 2 diabetes mellitus without complications (CMS/HCC) COMPLETE BLOOD COUNT Routine 08/04/2024 8:03 AM EDT Essential (primary) hypertension Anemia, unspecified Cellulitis, unspecified Type 2 diabetes mellitus without complications (CMS/HCC) CLOSTRIDIUM DIFFICILE PCR Routine 08/02/2024 7:40 PM EST Diarrhea, unspecified CLOSTRIDIUM DIFFICILE TOXIN Routine 08/02/2024 7:40 PM EST Diarrhea, unspecified COMPREHENSIVE METABOLIC PANEL Routine 07/28/2024 7:32 AM EST Essential (primary) hypertension Anemia, unspecified Cellulitis, unspecified Type 2 diabetes mellitus without complications (CMS/HCC) COMPLETE BLOOD COUNT Routine 07/28/2024 7:32 AM EST Essential (primary) hypertension Anemia, unspecified Cellulitis, unspecified Type 2 diabetes mellitus without complications (CMS/HCC) THYROID STIMULATING HORMONE Routine 07/23/2024 8:56 AM [...] (CMS/HCC) Vitamin D deficiency, unspecified Cellulitis, unspecified LIPID PANEL WITH REFLEX TO DIRECT LDL [...] (CMS/HCC) Vitamin D deficiency, unspecified Cellulitis, unspecified from Last 3 Months Results * (ABNORMAL) Complete blood count (08/18/2024 7:18 AM EDT) Only the most recent of5 resultswithin the time period is included. WBC 7.0 4.8 - 10.8 K/mcL LAB HEMETOLOGY METHOD 08/18/2024 11:59 AM [facility] RBC 4.90 4.50 - 5.50 M/mcL LAB [facility] Hemoglobin 14.1 13.5 - 17.5 g/dL LAB HEMETOLOGY METHOD 08/18/2024 11:59 AM [facility] Hematocrit 41.1(L) 42.0 - 54.0 % LAB HEMETOLOGY METHOD 08/18/2024 11:59 AM [facility] MCV 83.4 79.0 - 98.0 FL LAB HEMETOLOGY METHOD 08/18/2024 11:59 AM [facility] MCH 28.6 27.0 - 32.0 pcg LAB HEMETOLOGY METHOD 08/18/2024 11:[address] [facility] MCHC 34.3 32.0 - 37.0 g/dL LAB HEMETOLOGY METHOD 08/18/2024 11:[address] [facility] RDW 14.2 11.0 - 15.0 % LAB HEMETOLOGY METHOD 08/18/2024 11:[address] [facility] Platelets 266 130 - 400 K/mcL LAB HEMETOLOGY METHOD 08/18/2024 11:[address] [facility] MPV 8.9 7.0 - 11.0 FL LAB HEMETOLOGY METHOD 08/18/2024 11:[address] [facility] NRBC 0.0 <1.0 % LAB HEMETOLOGY METHOD 08/18/2024 11:[address] [facility] NRBC Absolute 0.00 <0.10 K/mcL LAB HEMETOLOGY METHOD 08/18/2024 11:[address] [facility] Blood Venous blood specimen / Unknown Venipuncture / Unknown 08/18/2024 7:18 AM EDT 08/18/2024 11:03 AM EDT Rebecca Gomez MD LAB BLOOD ORDERABLES Final Resul t [facility] [address] [place] [address], * (ABNORMAL) Comprehensive metabolic panel (08/18/2024 7:18 AM EDT) Only the most recent of5 resultswithin the time period is included. Sodium 132(L) 133 - 145 mmol/L LAB CHEMISTRY METHOD 08/18/2024 12:[address] [facility] Potassium 4.4 3.5 - 5.5 mmol/L LAB CHEMISTRY METHOD 08/18/2024 12:46 PM [facility] Chloride 95(L) 96 - 110 mmol/L LAB CHEMISTRY METHOD 08/18/2024 12:46 PM [facility] CO2 27 21 - 32 mmol/L LAB CHEMISTRY METHOD 08/18/2024 12:46 PM [facility] Anion Gap 10 3 - 11 LAB CHEMISTRY METHOD 08/18/2024 12:46 PM [facility] Glucose 88 70 - 100 mg/dL LAB CHEMISTRY METHOD 08/18/2024 12:46 PM [facility] BUN 34(H) 5 - 25 mg/dL LAB CHEMISTRY METHOD 08/18/2024 12:46 PM [facility] Creatinine 1.19 0.70 - 1.30 mg/dL LAB CHEMISTRY METHOD 08/18/2024 12:46 PM [facility] eGFR 63 >=60 mL/min/1. 73m2 LAB CHEMISTRY METHOD 08/18/2024 12:46 PM [facility] Comment:Calculation based on the??Chronic Kidney Disease Epidemiology Collaboration (CKD-EPI) equation refit??without adjustment for race. BUN/Creatinine Ratio 28.6 LAB CHEMISTRY METHOD 08/18/2024 12:46 PM [facility] Calcium 9.7 8.5 - 10.5 mg/dL LAB CHEMISTRY METHOD 08/18/2024 12:46 PM [facility] AST (SGOT) 30 10 - 42 unit/L LAB CHEMISTRY METHOD 08/18/2024 12:46 PM [facility] ALT (SGPT) 34 10 - 60 unit/L LAB CHEMISTRY METHOD 08/18/2024 12:46 PM [facility] Alkaline Phosphatase 93 42 - 121 unit/L LAB CHEMISTRY METHOD 08/18/2024 12:46 PM [facility] Total Protein 7.2 6.0 - 8.0 g/dL LAB CHEMISTRY METHOD 08/18/2024 12:[address] [facility] Albumin 3.4 3.2 - 5.0 g/dL LAB CHEMISTRY METHOD 08/18/2024 12:[address] [facility] Total Bilirubin 0.6 0.0 - 1.4 mg/dL LAB CHEMISTRY METHOD 08/18/2024 12:[address] [facility] Blood Venous blood specimen / Unknown Venipuncture / Unknown 08/18/2024 7:18 AM EDT 08/18/2024 11:03 AM EDT Rebecca Gomez MD LAB BLOOD ORDERABLES Final Resul t Performing Organization Address City/[facility]/ZIP Co de Phone Number [facility] [address] [place] [address], [place] [phone] * (ABNORMAL) Clostridium difficile molecular study (08/02/2024 7:40 PM EST) Clostridium difficile PCR Positive (AA) Negative LAB MICROBIOLOGY METHOD 08/03/2024 12:[address] [facility] Comment: CRITICAL RESULT POSITIVE FOR TOXIN PRODUCING CLOSTRIDIOIDES DIFFICILE, NO ADDITIONAL TESTING IS NECESSARY. REPEAT SAMPLES SHOULD NOT BE SUBMITTED FOR TEST OF CURE. Stool Rectum structure / Unknown Non-blood Collection / Unknown 08/02/2024 7:40 PM EST 08/03/2024 11:45 AM EDT Mary JOHNSON LAB MICROBIOLOGY - GENERAL ORD ERABLES Final Result Performing Organization Address City/[facility]/ZIP Co de Phone Number [facility] [address] [place] [address], [place] [phone] * Clostridium difficile toxin (08/02/2024 7:40 PM EST) C difficile Toxins A+B, EIA 08/03/2024 11:[address] [facility] Comment:Refer to C. alokil e PCR assay for results. Stool Rectum structure / Unknown Non-blood Collection / Unknown 08/02/2024 7:40 PM EST 08/03/2024 10:19 AM EDT us Mary JOHNSON LAB MICROBIOLOGY - GENERAL ORD ERABLES Final Result Performing Organization Address City/[facility]/ZIP Co de Phone Number [facility] [address] [place] [address], [place] [phone] * Lipid panel with reflex to direct LDL (07/23/2024 8:56 AM EST) Cholesterol 117 0 - 200 mg/dL LAB CHEMISTRY METHOD 07/23/2024 1:[address] [facility] Triglycerides 136 0 - 150 mg/dL LAB CHEMISTRY METHOD 07/23/2024 1:[address] [facility] HDL 53 >=40 mg/dL LAB CHEMISTRY METHOD 07/23/2024 1:58 PM [facility] LDL Calculated 37 0 - 100 mg/dL LAB CHEMISTRY METHOD 07/23/2024 1:58 PM [facility] VLDL Cholesterol Quique 27.2 mg/dL LAB CHEMISTRY METHOD 07/23/2024 1:58 PM [facility] Non HDL Chol. (LDL+VLDL) 64 <145 mg/dL LAB CHEMISTRY METHOD 07/23/2024 1:58 PM [facility] Chol/HDL Ratio 2.2 0.0 - 4.4 LAB CHEMISTRY METHOD 07/23/2024 1:58 PM [facility] Blood Venous blood specimen / Unknown Venipuncture / Unknown 07/23/2024 8:56 AM EST 07/23/2024 10:27 AM EST us Jagjit JOHNSON LAB BLOOD ORDERABLES Final Re sult [facility] [address] [place] [address], [place] [phone] * Vitamin D 25 hydroxy (07/23/2024 8:56 AM EST) [facility] Vit D, 25-Hydroxy 41.0 30.0 - 80.0 ng/mL LAB CHEMISTRY METHOD 07/23/2024 1:[address] [facility] Blood Venous blood specimen / Unknown Venipuncture / Unknown 07/23/2024 8:56 AM EST 07/23/2024 10:27 AM EST Jagjit JOHNSON LAB BLOOD ORDERABLES Final Re sult Performing Organization Address City/[facility]/ZIP Co de Phone Number [facility] [address] [place] [address], [place] [phone] * (ABNORMAL) Thyroid stimulating hormone (07/23/2024 8:56 AM EST) [facility] TSH 4.10(H) 0.40 - 4.00 mcIU/mL LAB CHEMISTRY METHOD 07/23/2024 1:[address] [facility] Blood Venous blood specimen / Unknown Venipuncture / Unknown 07/23/2024 8:56 AM EST 07/23/2024 10:27 AM EST Jagjit JOHNSON LAB BLOOD ORDERABLES Final Re sult [facility] [address] [place] [address], [place] [phone] * (ABNORMAL) Hemoglobin A1c (07/23/2024 8:56 AM EST) [facility] Hemoglobin A1C 6.6(H) <6.5 % LAB CHEMISTRY METHOD 07/23/2024 9:[address] [facility] Mean Bld Glu Estim. 143 mg/dL LAB CHEMISTRY METHOD 07/23/2024 9:[address] [facility] Blood Venous blood specimen / Unknown Venipuncture / Unknown 07/23/2024 8:56 AM EST 07/23/2024 10:27 AM EST Jagjit JOHNSON LAB BLOOD ORDERABLES Final Re sult Performing Organization Address City/[facility]/ZIP Co de Phone Number [facility] [address] [place] [address], [place] [phone] * (ABNORMAL) Folate (07/23/2024 8:56 AM EST) Folate 17.7(H) 2.8 - 17.0 ng/ml LAB CHEMISTRY METHOD 07/23/2024 1:[address] [facility] Blood Venous blood specimen / Unknown Venipuncture / Unknown 07/23/2024 8:56 AM EST 07/23/2024 10:27 AM EST Jagjit JOHNSON LAB BLOOD ORDERABLES Final Re sult Performing Organization Address [facility]/ZIP Co de Phone Number [facility] [address] [place] [address], [place] [phone] * Vitamin B12 (07/23/2024 8:56 AM EST) Vitamin B-12 761 250 - 900 pcg/mL LAB CHEMISTRY METHOD 07/23/2024 1:[address] [facility] Blood Venous blood specimen / Unknown Venipuncture / Unknown 07/23/2024 8:56 AM EST 07/23/2024 10:27 AM EST Jagjit JOHNSON LAB BLOOD ORDERABLES Final Re sult Performing Organization Address City/[facility]/ZIP Co de Phone Number [facility] [address] [place] [address], [place] [phone] from Last 3 Months Insurance MEDICARE [facility] Care Teams Corn Husk Baler Relationship Specialty Start Date End Date Jagjit Hancock PA [address] [place] [phone] PCP - General Physician Radiology Rn 07/23/24
--- OUTSIDE RECORDS SUMMARY | 2024-08-29 07:07 | XMS_ITS | Continuity of Care Document ---
Author Name [facility] Organization [facility] Care Team Providers Care Business Process Expert Name Role Phone [facility] Unavailable Unavailable Problems Combined list of problems [...] Art SANTAMARIA Comment: Right shoulder replacement 2016 [facility] At risk of pressure ulcer (SNOMED CT 077332185) Active Condition [facility] DM - Diabetes mellitus (SNOMED CT 10019189) Active Condition [facility] HTN - Hypertension (SNOMED CT 69078473) Active Condition [place] Hyperlipidemia (SCT 36563866) [facility] Iron deficiency anemia Active Condition [facility] [facility] Osteoarthritis Active Condition [facility] IELD Pain in right hip joint Active Condition [place] Polyp of colon Active Condition September 262013 Entered By: LIA ABRAHAM Comment: 2012 2 polypsSep 2017 Entered By: Art SANTAMARIA Comment: 06/13 1 polypApr 2020 Entered By: Art SANTAMARIA Comment: 10/2019 EGD and colonic polyp-see note 08/27/20-due 11/17 colon [place] Postsurgical Status of Cataract Extraction Active Condition Sep 10, 2012 Entered By: LIA ABRAHAM Comment: alondra [place] Pressure injury of buttock Active Condition Aug 15, 2023 Entered By: KEO ANAYA Comment: Managed by MYNOR Acevedo [place] Psoriasis Active Condition [place] Diagnosis: ICD-10-CM L03.116 Cellulitis of left lower limb Active Diagnosis [facility] Diagnosis: ICD-10-CM E11.9 Type 2 diabetes mellitus without complications Active Diagnosis [place] Diagnosis: ICD-10-CM 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 Medication Details Route Status Patient Instructions Prescription Expires Prescription Number Last Dispense Date Ordering Provider Order Date Order Qty Source ASPIRIN 81MG TAB,EC TAKE ONE TABLET BY MOUTH DAILY ORAL ACTIVE JOSH ABRAHAM 2013 [facility] IELD CICLOPIROX OLAMINE 0.77% CREAM,TOP APPLY A TOPICALL Y TWICE DAILY TOPICA L ACTIVE JOSH ABRAHAM 2012 [place] CYANOCOBALA MIN 1000MCG TAB TAKE ONE TABLET BY MOUTH DAILY ORAL ACTIVE JOSH ABRAHAM 2013 [facility] IELD DICLOFENAC NA 1% GEL,TOP APPLY 2 GRAMS TOPICALL Y FOUR TIMES DAILY NEEDED FOR OSTEOART HRITIS - USE DOSING CARD PROVIDED IN BOX TOPICA L ACTIVE 01/30/2025 [id number] 5 Frantz TRUJILLO A 2023 100 [place] DICLOFENAC NA 1% GEL,TOP APPLY 2 GRAMS TOPICALL Y FOUR TIMES DAILY NEEDED FOR OSTEOART HRITIS - USE DOSING CARD PROVIDED IN BOX [facility]24 [id number] 4 KATIE ACEVEDO 2022 100 [place] FLUOCINONID E 0.05% CREAM,TOP APPLY A TOPICALL Y TWICE DAILY TOPICA L ACTIVE JOSH ABRAHAM 2012 [place] HYDROCHLORO THIAZIDE 25MG TAB TAKE ONE TABLET BY MOUTH DAILY TO PREVENT FLUID/CO NTROL BLOOD PRESSURE ORAL ACTIVE 01/30/2025 [id number] 5 Frantz TRUJILLO A 2023 90 [place] HYDROCHLORO THIAZIDE 25MG TAB TAKE ONE TABLET BY MOUTH DAILY TO PREVENT FLUID/CO NTROL BLOOD PRESSURE ORAL DISCONT INUED 02/15/2024 [id number] 4 KATIE ACEVEDO CHESTER S 2022 90 [place] LIDOCAINE 5% PATCH APPLY 1 PATCH TOPICALL Y ONCE DAILY NEEDED (LEAVE PATCH ON FOR 12 HOURS, THEN REMOVE PATCH) TOPICA L ACTIVE 01/30/2025 [id number] 5 Frantz TRUJILLO A 2023 30 [place] LIDOCAINE 5% PATCH APPLY 1 PATCH TOPICALL Y ONCE DAILY NEEDED (LEAVE PATCH ON FOR 12 HOURS, THEN REMOVE PATCH) TOPICA L DISCONT INUED 02/15/2024 [id number] 4 ACEVEDO,KATIE CHESTER S 2022 30 [place] LORATADINE 10MG TAB TAKE ONE TABLET BY MOUTH DAILY ORAL ACTIVE JOSH ABRAHAM 2013 [place] LOSARTAN POTASSIUM 100MG TAB TAKE ONE TABLET BY MOUTH ONCE DAILY FOR BLOOD PRESSURE /HEART ORAL ACTIVE 01/30/2025 [id number] 4 Frantz TRUJILLO A 2023 90 [place]AN POTASSIUM 100MG TAB TAKE ONE TABLET BY MOUTH ONCE DAILY FOR BLOOD PRESSURE /HEART ORAL DISCONT INUED 02/15/2024 [id number] 4 KATIE ACEVEDO S 2022 90 [place] MAGNESIUM OXIDE TAB TAKE BY MOUTH ORAL ACTIVE ROWENA LAURENT 2018 [place] METFORMIN HCL 1000MG TAB TAKE ONE TABLET BY MOUTH TWICE DAILY FOR DIABETES ORAL ACTIVE 01/30/2025 [id number] 5 Frantz TRUJILLO A 2023 180 [place] METFORMIN HCL 1000MG TAB TAKE ONE TABLET BY MOUTH TWICE DAILY FOR DIABETES ORAL DISCONT INUED 02/15/2024 [id number] 4 KATIE ACEVEDO S 2022 180 [place] METOPROLOL TARTRATE 50MG TAB TAKE ONE TABLET BY MOUTH TWICE DAILY FOR BLOOD PRESSURE /HEART ORAL ACTIVE 06/25/2025 [id number] 5 Frantz TRUJILLO A 2024 180 [place] METOPROLOL TARTRATE 50MG TAB TAKE ONE TABLET BY MOUTH TWICE DAILY FOR BLOOD PRESSURE /HEART ORAL DISCONT INUED 09/26/2024 [id number] 4 ALVARADO ANAYA 2023 180 IELD METOPROLOL TARTRATE 50MG TAB TAKE ONE TABLET BY MOUTH TWICE DAILY FOR BLOOD PRESSURE /HEART ORAL DISCONT INUED 01/16/2024 [id number] 4 ACEVEDO,AD CHESTER S 2022 180 IELD MULTIVITAMI NS W/MINERALS TAB TAKE ONE TABLET BY MOUTH DAILY ORAL ACTIVE JOSH ABRAHAM 2013 IELD OTHER CAP/TAB TAKE 1 APPLICAT ION topical ONCE DAILY NEEDED ACTIVE ROWENA LAURENT spring IELD ROSUVASTATI N CA 10MG TAB TAKE ONE-HALF TABLET BY MOUTH TWO TIMES A WEEK FOR CHOLESTE ROL ORAL ACTIVE 01/30/2025 [id number] 4 Frantz TRUJILLO AVID A 2023 13 IELD ROSUVASTATI N CA 10MG TAB TAKE ONE-HALF TABLET BY MOUTH TWO TIMES A WEEK FOR CHOLESTE ROL ORAL DISCONT INUED 02/15/2024 [id number] 4 ACEVEDO,AD CHESTER S 2022 13 IELD SEMAGLUTIDE 1MG/0.75ML INJ,SOLN,PE N,3ML INJECT 1MG SUBCUTAN EOUSLY ONCE A WEEK SUBCUT ANEOUS ACTIVE 06/25/2025 [id number] 5 Frantz TRUJILLO AVID A 2024 3 IELD SEMAGLUTIDE 1MG/0.75ML INJ,SOLN,PE N,3ML INJECT 1MG SUBCUTAN EOUSLY ONCE A WEEK SUBCUT ANEOUS DISCONT INUED 09/26/2024 [id number] 5 ALVARADO ANAYA 2023 3 IELD SEMAGLUTIDE 1MG/0.75ML INJ,SOLN,PE N,3ML INJECT 1MG SUBCUTAN EOUSLY ONCE A WEEK SUBCUT ANEOUS DISCONT INUED 05/11/2024 [id number] 4 ALVARADO ANAYA 2023 1 IELD SENNOSIDE 8.6MG (SENNA) TAB TAKE BY MOUTH DAILY ORAL ACTIVE JOSH ABRAHAM spring IELD SPIRONOLACT ONE 25MG TAB TAKE TWO TABLETS BY MOUTH ONCE DAILY ORAL ACTIVE 01/30/2025 [id number] 4 Frantz TRUJILLO A 2023 180 [place] SPIRONOLACT ONE 25MG TAB TAKE TWO TABLETS BY MOUTH DAILY [REPLACE S CRISTIAN NE] ORAL DISCONT INUED 02/15/2024 [id number] 4 ACEVEDO,AD CHESTER S 2022 180 [place] TACROLIMUS 0.1% OINT,TOP APPLY THIN LAYER TOPICALL Y TWICE DAILY FOR ATOPIC DERMATIT IS TOPICA L PROVIDE R HOLD 03/27/2024 [id number] CURTIS,KATIE CHESTER S 2022 180 [place] VITAMIN D3 (CHOLECALCI FEROL) TAB TAKE BY MOUTH ORAL ACTIVE ROWENA LAURENT 2020 [facility] IELD Immunizations Combined list of available immunizations from the Department of Defense and Veterans Affairs facilities. 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 Expiratio n Date: 08/31/23 [facility] INFLUENZA, HIGH-DOSE, QUADRIVALENT 2022 WEI OCHOA LEFT DELTO ID [id number] A 197 complet ed [place] COVID-19 (MODERNA), MRNA, LNP-S, BIVALENT BOOSTER, PF, 50 MCG/0.5 ML OR 25MCG/0.25 ML DOSE 2021 SHEREEN IVERSON LEFT DELTO ID [id number] 229 complet ed [place] COVID-19 (MODERNA), MRNA, LNP-S, PF, 100 MCG OR 50 MCG DOSE 3 2020 207 complet ed MOD; [id number]; 2 [facility] IELD INFLUENZA VACCINE, QUADRIVALENT, ADJUVANTED 2020 205 complet ed [facility] IELD COVID-19 (MODERNA), MRNA, LNP-S, PF, 100 MCG/0.5 ML DOSE 2 2020 207 complet ed MOD; [id number]; 1 [facility] IELD COVID-19 (MODERNA), MRNA, LNP-S, PF, 100 MCG/0.5 ML DOSE 1 2020 207 complet ed MOD; [id number]; 1 [facility] IELD INFLUENZA, UNSPECIFIED FORMULATION 2019 88 complet ed [facility] INFLUENZA, SEASONAL, INJECTABLE 2018 141 complet ed [facility] INFLUENZA, SEASONAL, INJECTABLE 2017 141 complet ed documenta tion influenza HD 03-21-18 Left deltoid [id number] exp 09-26-18 [facility] [...] Reference Range Date Interpretation Specimen Comments Source HEMOGLOBI N A1C PANEL HEMOGLOBIN A1C/HEMOGLO BIN.TOTAL IN BLOOD BY HPLC 6.2 4.0 - 5.6 07/11 H Specimen Type: BLOOD Comment: Values obtained from A1C measurement s can vary. For atypical A1C assays, a reported value of 7.0 could actually be between 6.72 and 7.28 if measured by a reference method. A reported value of 9.0 could actually be between 8.73 and 9.27. Ref: [email or web address] ngsp.org/[place] Pdata.asp Ordering Provider: POPEYE TRUJILLO A Report Released Date/Time: Jul 11, 2024 08:32 AM Reporting Lab: [facility] [facility] [address] [address] Performing Lab: [facility] [place] [facility] [address] [facility] [address] [facility] LD MICROALBU MIN CREATININ E RATIO PANEL MICROALBUMI N/CREATININ E [MASS RATIO] IN URINE 6.9 mg/g 0 - 29.9 07/11 Specimen Type: URINE No comment entered. Ordering Provider: POPEYE TRUJILLO A Report Released Date/Time: Jul 11, 2024 08:32 AM Reporting Lab: [facility] [place] [facility] [address] [facility] [address] Performing Lab: [facility] [facility] [address] [facility] [address] [place] MICROALBU MIN CREATININ E RATIO PANEL MICROALBUMI N [MASS/VOLUM E] IN URINE 0.7 mg/dL 07/11 Specimen Type: URINE No comment entered. Ordering Provider: POPEYE TRUJILLO A Report Released Date/Time: Jul 11, 2024 08:32 AM Reporting Lab: [facility] [address] [address] Performing Lab: [facility] [place] [address] [address] [place] MICROALBU MIN CREATININ E RATIO PANEL CREATININE [MASS/VOLUM E] IN URINE 101.71 mg/dL 07/11 Specimen Type: URINE No comment entered. Ordering Provider: POPEYE TRUJILLO A Report Released Date/Time: Jul 11, 2024 08:32 AM Reporting Lab: [facility] [address] [address] Performing Lab: [facility]N [facility] [address] [place] TSH THYROTROPIN [UNITS/VOLU ME] IN SERUM OR PLASMA 4.62 u[IU]/ mL 0.35 - 5.00 07/11 Specimen Type: SERUM No comment entered. Ordering Provider: POPEYE TRUJILLO A Report Released Date/Time: Jul 11, 2024 08:32 AM Reporting Lab: [facility] [address] [address] Performing Lab: [facility] [address] [address] [place] VITAMIN D (25-OH) 25-HYDROXYV ITAMIN D3 [MASS/VOLUM E] IN SERUM OR PLASMA 48 ng/mL 20 - 50 07/11 Specimen Type: SERUM No comment entered. Ordering Provider: POPEYE TRUJILLO A Report Released Date/Time: Jul 11, 2024 08:32 AM Reporting Lab: [facility] [address] [address] Performing Lab: [facility] [address] [place] CBC LEUKOCYTES [#/VOLUME] IN BLOOD BY AUTOMATED COUNT 9.27 10*3/u L 4.50 - 11.00 07/11 Specimen Type: BLOOD No comment entered. Ordering Provider: POPEYE TRUJILLO A Report Released Date/Time: Jul 11, 2024 08:32 AM Reporting Lab: [facility] [place] [address] [address] Performing Lab: [facility] [place] [address] [address] [place] CBC ERYTHROCYTE S [#/VOLUME] IN BLOOD BY AUTOMATED COUNT 4.41 10*6/u L 4.23 - 5.66 07/11 Specimen Type: BLOOD No comment entered. Ordering Provider: POPEYE TRUJILLO A Report Released Date/Time: Jul 11, 2024 08:32 AM Reporting Lab: [facility] [address] Performing Lab: [facility] [place] [address] [address] [place] CBC HEMOGLOBIN [MASS/VOLUM E] IN BLOOD 12.3 g/dL 12.8 - 17 07/11 L Specimen Type: BLOOD No comment entered. Ordering Provider: POPEYE TRUJILLO A Report Released Date/Time: Jul 11, 2024 08:32 AM Reporting Lab: [facility] [place] [address] [address] Performing Lab: [facility] [place] [address] [address] [place] CBC HEMATOCRIT [VOLUME FRACTION] OF BLOOD BY AUTOMATED COUNT 37.7 39.2 - 50.4 07/11 L Specimen Type: BLOOD No comment entered. Ordering Provider: POPEYE TRUJILLO A Report Released Date/Time: Jul 11, 2024 08:32 AM Reporting Lab: [facility] [place] [address] Performing Lab: [facility] [place] [address] [place] CBC MCV [ENTITIC VOLUME] BY AUTOMATED COUNT 85.5 fL 82 - 99 07/11 Specimen Type: BLOOD No comment entered. Ordering Provider: POPEYE TRUJILLO A Report Released Date/Time: Jul 11, 2024 08:32 AM Reporting Lab: [facility] [address] [facility] [facility] [address] Performing Lab: [facility] [address] [facility] [address] [place] CBC MCHC [MASS/VOLUM E] BY AUTOMATED COUNT 32.6 g/dL 30.8 - 35.1 07/11 Specimen Type: BLOOD No comment entered. Ordering Provider: POPEYE TRUJILLO A Report Released Date/Time: Jul 11, 2024 08:32 AM Reporting Lab: [facility]ITALTRN [address] [address] Performing Lab: [facility]N [address] [address] [place] CBC PLATELETS [#/VOLUME] IN BLOOD BY AUTOMATED COUNT 277 10*3/u L 140 - 360 07/11 Specimen Type: BLOOD No comment entered. Ordering Provider: POPEYE TRUJILLO A Report Released Date/Time: Jul 11, 2024 08:32 AM Reporting Lab: [facility] H[facility]PITALTRN [address] [address] Performing Lab: [facility] [address] [place] CBC ERYTHROCYTE DISTRIBUTIO N WIDTH [RATIO] BY AUTOMATED COUNT 13.8 12.0 - 16.0 07/11 Specimen Type: BLOOD No comment entered. Ordering Provider: POPEYE TRUJILLO A Report Released Date/Time: Jul 11, 2024 08:32 AM Reporting Lab: [facility] [address] [facility] [address] Performing Lab: [facility]RL TRN [facility] [address] [place] CBC MCH [ENTITIC MASS] BY AUTOMATED COUNT 27.9 pg 26.2 - 32.6 07/11 Specimen Type: BLOOD No comment entered. Ordering Provider: POPEYE TRUJILLO A Report Released Date/Time: Jul 11, 2024 08:32 AM Reporting Lab: [facility] [address] [address] Performing Lab: [facility]ITAL[facility]N [address] [address] [place] LIPID PANEL, NON FASTING CHOLESTEROL [MASS/VOLUM E] IN SERUM OR PLASMA 147 mg/dL 07/11 Specimen Type: SERUM No comment entered. Ordering Provider: POPEYE TRUJILLO A Report Released Date/Time: Jul 11, 2024 08:32 AM Reporting Lab: [facility] HOSPITALTRN [address] [address] Performing Lab: [facility] [address] [address] [place] LIPID PANEL, NON FASTING TRIGLYCERID E [MASS/VOLUM E] IN SERUM OR PLASMA 96 mg/dL 0 - 150 07/11 Specimen Type: SERUM No comment entered. Ordering Provider: POPEYE TRUJILLO A Report Released Date/Time: Jul 11, 2024 08:32 AM Reporting Lab: [facility]PITALTRN [facility] [address] Performing Lab: [facility]N [address] [address] [place] LIPID PANEL, NON FASTING CHOLESTEROL IN LDL [MASS/VOLUM E] IN SERUM OR PLASMA BY CALCULATION 76 mg/dL 0 - 129 07/11 Specimen Type: SERUM No comment entered. Ordering Provider: POPEYE TRUJILLO A Report Released Date/Time: Jul 11, 2024 08:32 AM Reporting Lab: [facility] [address] Performing Lab: [facility]ITALTRN [facility] [address] [place] LIPID PANEL, NON FASTING CHOLESTEROL .TOTAL/CHOL ESTEROL IN HDL [MASS RATIO] IN SERUM OR PLASMA 2.8 07/11 Specimen Type: SERUM No comment entered. Ordering Provider: POPEYE TRUJILLO A Report Released Date/Time: Jul 11, 2024 08:32 AM Reporting Lab: [facility] [address] [facility] [address] Performing Lab: [facility] [address] [address] [place] LIPID PANEL, NON FASTING CHOLESTEROL IN HDL [MASS/VOLUM E] IN SERUM OR PLASMA 52 mg/dL 40 - 60 07/11 Specimen Type: SERUM No comment entered. Ordering Provider: POPEYE TRUJILLO A Report Released Date/Time: Jul 11, 2024 08:32 AM Reporting Lab: [address] [address] Performing Lab: [address] [address] [place] BASIC METABOLIC PANEL (non-fast ing) UREA NITROGEN [MASS/VOLUM E] IN SERUM OR PLASMA 20 mg/dL 7 - 25 07/11 Specimen Type: SERUM No comment entered. Ordering Provider: POPEYE TRUJILLO A Report Released Date/Time: Jul 11, 2024 08:32 AM Reporting Lab: [address] [address] Performing Lab: [facility] [address] [address] [place] BASIC METABOLIC PANEL (non-fast ing) GLUCOSE [MASS/VOLUM E] IN SERUM OR PLASMA 135 mg/dL 65 - 100 07/11 H Specimen Type: SERUM No comment entered. Ordering Provider: POPEYE TRUJILLO A Report Released Date/Time: Jul 11, 2024 08:32 AM Reporting Lab: [facility] [address] [address] Performing Lab: [facility] [address] [address] [place] BASIC METABOLIC PANEL (non-fast ing) SODIUM [MOLES/VOLU ME] IN SERUM OR PLASMA 138 mmol/L 135 - 145 07/11 Specimen Type: SERUM No comment entered. Ordering Provider: POPEYE TRUJILLO A Report Released Date/Time: Jul 11, 2024 08:32 AM Reporting Lab: [facility]PITALTRN [facility] [address] [address] Performing Lab: [facility]ITALN [facility] [address] [facility] [address] [place] BASIC METABOLIC PANEL (non-fast ing) POTASSIUM [MOLES/VOLU ME] IN SERUM OR PLASMA 3.8 mmol/L 3.5 - 5.0 07/11 Specimen Type: SERUM No comment entered. Ordering Provider: POPEYE TRUJILLO A Report Released Date/Time: Jul 11, 2024 08:32 AM Reporting Lab: [facility]N [address] [address] Performing Lab: [facility] [address] [address] [place] BASIC METABOLIC PANEL (non-fast ing) CHLORIDE [MOLES/VOLU ME] IN SERUM OR PLASMA 100 mmol/L 100 - 110 07/11 Specimen Type: SERUM No comment entered. Ordering Provider: POPEYE TRUJILLO A Report Released Date/Time: Jul 11, 2024 08:32 AM Reporting Lab: [facility]N [facility] [address] [facility] [address] Performing Lab: [facility] [address] [address] [place] BASIC METABOLIC PANEL (non-fast ing) CARBON DIOXIDE, TOTAL [MOLES/VOLU ME] IN SERUM OR PLASMA 28 meq/L 20 - 30 07/11 Specimen Type: SERUM No comment entered. Ordering Provider: POPEYE TRUJILLO A Report Released Date/Time: Jul 11, 2024 08:32 AM Reporting Lab: [facility]ITALTRN [address] [address] Performing Lab: [facility]N [address] [address] [place] BASIC METABOLIC PANEL (non-fast ing) CREATININE [MASS/VOLUM E] IN SERUM OR PLASMA 1.07 mg/dL 0.50 - 1.40 07/11 Specimen Type: SERUM No comment entered. Ordering Provider: POPEYE TRUJILLO A Report Released Date/Time: Jul 11, 2024 08:32 AM Reporting Lab: [facility] [address] [address] Performing Lab: [facility]N [facility] [address] [place] BASIC METABOLIC PANEL (non-fast ing) GLOMERULAR FILTRATION RATE/1.73 SQ M.PREDICTED [VOLUME RATE/AREA] IN SERUM, PLASMA OR BLOOD BY CREATININE- BASED FORMULA (CKD-EPI 2020) 71 mL/min 60 07/11 Specimen Type: SERUM No comment entered. Ordering Provider: POPEYE TRUJILLO A Report Released Date/Time: Jul 11, 2024 08:32 AM Reporting Lab: [facility]ITALTRN [facility] [address] Performing Lab: [facility]RL TRN [facility]ITALUS[facility] [address] [address] [employer] LIVER FUNCTION PROTEIN [MASS/VOLUM E] IN SERUM OR PLASMA 7.7 g/dL 6.0 - 8.3 07/11 Specimen Type: SERUM No comment entered. Ordering Provider: POPEYE TRUJILLO A Report Released Date/Time: Jul 11, 2024 08:32 AM Reporting Lab: [facility] [address] [address] Performing Lab: [facility] [place] [address] [address] [place] LIVER FUNCTION ALBUMIN [MASS/VOLUM E] IN SERUM OR PLASMA 3.5 g/dL 3.5 - 5.0 07/11 Specimen Type: SERUM No comment entered. Ordering Provider: POPEYE TRUJILLO A Report Released Date/Time: Jul 11, 2024 08:32 AM Reporting Lab: [facility] [address] Performing Lab: [facility] [address] [place] LIVER FUNCTION ALKALINE PHOSPHATASE [ENZYMATIC ACTIVITY/VO LUME] IN SERUM OR PLASMA 90 U/L 40 - 150 07/11 Specimen Type: SERUM No comment entered. Ordering Provider: POPEYE TRUJILLO A Report Released Date/Time: Jul 11, 2024 08:32 AM Reporting Lab: [facility] [place] [facility] [address] [facility] [address] Performing Lab: [facility] [place] [facility] [address] [facility] [address] [place] LIVER FUNCTION ASPARTATE AMINOTRANSF ERASE [ENZYMATIC ACTIVITY/VO LUME] IN SERUM OR PLASMA 17 U/L 5 - 34 07/11 Specimen Type: SERUM No comment entered. Ordering Provider: POPEYE TRUJILLO A Report Released Date/Time: Jul 11, 2024 08:32 AM Reporting Lab: [facility] [place] [address] [address] Performing Lab: [facility] [place] [address] [address] [place] LIVER FUNCTION ALANINE AMINOTRANSF ERASE [ENZYMATIC ACTIVITY/VO LUME] IN SERUM OR PLASMA 12 U/L 07/11 Specimen Type: SERUM No comment entered. Ordering Provider: POPEYE TRUJILLO A Report Released Date/Time: Jul 11, 2024 08:32 AM Reporting Lab: [facility] [place] [address] [address] Performing Lab: [facility] [place] [address] [address] [place] LIVER FUNCTION BILIRUBIN.T OTAL [MASS/VOLUM E] IN SERUM OR PLASMA 0.3 mg/dL 0.2 - 1.2 07/11 Specimen Type: SERUM No comment entered. Ordering Provider: POPEYE TRUJILLO A Report Released Date/Time: Jul 11, 2024 08:32 AM Reporting Lab: [facility] [place] [address] [address] Performing Lab: [facility] [place] [address] [address] [place] HEMOGLOBI N A1C PANEL HEMOGLOBIN A1C/HEMOGLO BIN.TOTAL IN BLOOD BY HPLC 5.9 4.0 - [...] [email or web address] Ordering Provider: ISABEL ANAYA J Report Released Date/Time: Aug 15, 2023 02:27 PM Reporting Lab: [address] [address] Performing Lab: [address] [address] [place] MICROALBU MIN CREATININ E RATIO PANEL MICROALBUMI N/CREATININ E [MASS RATIO] IN URINE 10.2 mg/g 0 - 29.9 02/28 Specimen Type: URINE No comment entered. Ordering Provider: ISABEL ANAYA Report Released Date/Time: Aug 15, 2023 02:27 PM Reporting Lab: [address] [address] Performing Lab: [address] [address] [place] MICROALBU MIN CREATININ E RATIO PANEL MICROALBUMI N [MASS/VOLUM E] IN URINE 1.7 mg/dL 02/28 Specimen Type: URINE No comment entered. Ordering Provider: ISABEL ANAYA Report Released Date/Time: Aug 15, 2023 02:27 PM Reporting Lab: [address] [address] Performing Lab: [address] [address] [place] MICROALBU MIN CREATININ E RATIO PANEL CREATININE [MASS/VOLUM E] IN URINE 166.35 mg/dL 02/28 Specimen Type: URINE No comment entered. Ordering Provider: ISABEL ANAYA Report Released Date/Time: Aug 15, 2023 02:27 PM Reporting Lab: [facility] [place] [facility] [address] [facility] [address] Performing Lab: [facility] [place] [facility] [address] [facility] [address] [facility] Vital Signs Combined list of inpatient and outpatient Vital Signs from [facility] of [facility] and [facility] Affairs, ranging from 12 months to all on record, depending upon the facility. Vital Sign Value Date Comments Source SYSTOLIC BLOOD PRESSURE 124 07/17/2024 14:39:47 [place] DIASTOLIC BLOOD PRESSURE 84 07/17/2024 14:39:47 [place] PULSE OXIMETRY 99 07/17/2024 14:39:[facility]/17/[facility]24 14:39:47 [place] TEMPERATURE 97.6 07/17/2024 14:39:47 [place] PULSE 87 07/17/2024 14:39:47 [facility] SYSTOLIC BLOOD PRESSURE 128 03/06/2024 15:09:07 [place] DIASTOLIC BLOOD PRESSURE 74 03/06/2024 15:09:07 [place] PULSE OXIMETRY 98 03/06/2024 15:09:07 [place] WEIGHT 212 03/06/2024 15:09:07 [place] BMI 28 kg/m2 03/06/2024 15:09:07 [place] TEMPERATURE 97.6 03/06/2024 15:09:07 [place] PULSE 66 03/06/2024 15:09:07 [place] Encounters Combined list of: 1) Encounters from Department of Veterans Affairs facilities going backup to the last 18 months, not all MD inpatient encounters are included; 2) Encounters from the Department [facility] facilities going backup to 280 months. Location Location Details Encounter Type Encounter Number Reason For Visit Attending Provider ADM Date DC Date Status Disposition Source [facility] [place] [facility] Outpatient Encounter [id number] RACHEL MILLER 03/01 [place] [facility] [place] [facility] [place] [facility] Outpatient Encounter [id number] 03/09 [facility] En[facility] [id number] 03/13 [facility] En[facility] [id number] 03/16 [facility] En[facility] [id number] 04/12 [facility] En[facility] [id number] 04/12 [facility] En[facility] [id number] 04/13 [facility] En[facility] [id number] 04/16 [facility] En[facility] [id number] 05/08 [facility] En[facility] [id number] 05/08 [facility] [place] En[facility] [id number] 05/22 [facility] En[facility] [id number] 06/29 [facility] En[facility] [id number] 07/19 [facility] En[facility] [id number] 07/20 [facility] [place] [facility] OFFICE O/P EST MOD 30 MIN [id number] Diagnos is: ICD-10- CM R60.9 Edema, unspeci fied ANAYA,VICT ORIA J 08/14 [facility] En[facility] [id number] 08/20 [facility] En[facility] [id number] 09/25 [facility] En[facility] [id number] 11/01 [facility] En[facility] [id number] 11/06 [facility] En[facility] [id number] 11/15 [facility] En[facility] [id number] 11/17 [facility] En[facility] [id number] 11/18 [facility] En[facility] [id number] 11/18 [facility] En[facility] [id number] 11/19 [facility] Encounter [id number] 11/21 [facility] Encounter [id number] 11/22 [facility] [place] [place] Outpatient Encounter [id number] 11/[address] 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 [place]/P EST HI 40 MIN [id number] 1BY. 94 Diagnos is: ICD-10- CM E11.9 Type 2 diabete s mellitu s without complic ations RONNIEDA VID A 03/06 [place] [facility] ADMN SARSCOV2 VACC 1 DOSE [id number] 1. RONNIE,DA VID A 03/06 [facility] En[facility] [id number] 05/23 [facility] En[facility] [id number] 05/26 [facility] Encounter [id number] 06/23 [facility] [place] [facility] OFFICE O/P EST HI 40 MIN 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 tis of left lower limb RONNIEDA VID A 07/17 [place] [facility] En[facility] [id number] 07/17 [facility] En[facility] [id number] 07/17 [facility] [place] En[facility] [id number] 07/17 [facility] [place] Encounter [id number] 07/21 [facility] [place] En[facility] [id number] 07/29 [facility] [place] Social History Combined list of available smoking, tobacco, and other social history from Department of Defense and Veterans Affairs facilities. Social History Type Response Date Comment Sour e Tobacco smoking status TNIS VA-TOBACCO NEVER USED 03/06/2024 [facility] [place] [facility] History of tobacco use VA-TOBACCO NEVER USED 02/14/2023 [place] History of tobacco use VA-TOBACCO NEVER USED 01/27/2022 [place] History of tobacco use VA-TOBACCO NEVER USED 01/27/2021 [facility] [place] [facility] History of tobacco use VA-TOBACCO NEVER USED [facility] History of tobacco use LIFETIME NON-TOBACCO USER 11/08/2017 [place] History of tobacco use LIFETIME NON-TOBACCO USER 11/08/2016 [place] History of tobacco use LIFETIME NON-TOBACCO USER 10/21/2015 [place] History of tobacco use LIFETIME NON-TOBACCO USER 09/10/2012 [place]
[2024-08-29 10:06] LABS: MANUAL DIFF FLAG NO
[2024-08-29 10:17] LABS: Basophils Absolute Auto 0.1 X10*3/uL (0.0-0.2); Basophils Percent Auto 1.1 % (0-2); Eosinophils Absolute Auto 0.2 X10*3/uL (0.0-0.4); Eosinophils Percent Auto 2.5 % (0-4); Hematocrit 37.7 % (42.0-52.0); Hemoglobin 12.3 g/dl (14.0-18.0); Imm Gran Abs Auto 0.03 X10*3/uL (0.00-0.03); Imm Gran Pct Auto 0.5 % (0.0-0.4); Lymphocytes Absolute Auto 1.3 X10*3/uL (1.2-4.9); Lymphocytes Percent Auto 20.4 % (20-40); Mean Corpuscular HGB Conc 32.6 g/dl (31.0-36.0); Mean Corpuscular Volume 85.7 fL (80.0-98.0); Mean Platelet Volume 9.3 fL (9.4-12.4); Monocytes Absolute Auto 0.7 X10*3/uL (0.1-1.2); Monocytes Percent Auto 11.2 % (2-11); Neutrophils Absolute Auto 4.1 x10*3/uL (2.0-8.3); Neutrophils Percent Auto 64.3 % (45-73); Platelet Count 265 X10*3/uL (160-400); Red Cell Distribution Width 14.9 % (11.0-16.0); White Blood Count 6.4 X10*3/uL (4.8-10.8)
[2024-08-29 10:39] LABS: Alanine Aminotransferase 10 U/L (0-40); Anion Gap 13 (12-20); Aspartate Amino Transferase 22 U/L (5-37); Blood Urea Nitrogen 54 mg/dL (9-16); Calcium 9.9 mg/dL (8.4-10.2); Carbon Dioxide 23 mmol/L (22-29); Chloride 105 mmol/L (96-108); Cholesterol 118 mg/dL (<200); Estimated Glomerular Filt Rate 31; Glucose Fasting 105 mg/dL (60-99); HDL Cholesterol 47 mg/dL (>40); LDL Cholesterol Calculated 52 mg/dL (<100); Potassium 4.2 mmol/L (3.3-5.1); Sodium 137 mmol/L (135-145); Triglycerides 97 mg/dL (<150)
[2024-08-29 11:13] LABS: Vitamin D 25-OH Total 44.3 ng/mL (>30)
[2024-08-29 11:24] LABS: Estimated Average Glucose 128 mg/dL; Hemoglobin A1C 134.5264 umol/L; Hemoglobin A1c % 6.1 % (<6.0); Total Hemoglobin (HGBA1C) 3091.9242 umol/L
[2024-08-29 11:55] LABS: Creatinine Urine 84.66 mg/dL; Microalbum/Creatinine Ratio Ur 24.8 ug/mg cr (<30)
== END 2024-08-29 07:04 | disposition home or self-care (01) ==
LOC: HO.HMGCLDS 07:03
PROVIDERS: PCP Internal Medicine; Visit Provider Internal Medicine
DX: E11.9 Type 2 diabetes mellitus without complications (principal); I10 Essential (primary) hypertension; E78.5 Hyperlipidemia, unspecified; D64.9 Anemia, unspecified
CPT/HCPCS: 36415; 80048; 80061; 82043; 82306; 82570; 83036; 84450; 84460; 85025

== ENCOUNTER 2024-09-11 10:38 | Outpatient (AMB) | payer MEDICARE, SELFPAY ==
[2024-09-11 10:58] VITALS: BP 110/70; PULSE 86; RESP 16; TEMP 36.6; O2SAT 100; BMI 26.9
--- NOTE | 2024-09-11 10:58 | A.OFFPC_ITS ---
Vital Signs 09/11/24 10:58 Height 5 ft 11 in Weight 193 lb BMI 26.9 BP 110/70 Blood Pressure Location Rt brachial Position Sitting Respiration 16 Pulse 86 Pulse Source Pulse Oximeter Temp 97.9 F Temp Source Oral Pulse Oximetry (%) 100 Oxygen Delivery Method Room Air Intake Visit Reasons: f/u labs Intake Note: Pt is here today for his lab f/u Allergies No Known Allergies Allergy (Verified 09/11/24 11:26) Medication List - Last Reconciled 09/11/24 by Nubia Gray MD ascorbic acid (vitamin C) (Vitamin C) 1,000 mg PO DAILY blood sugar diagnostic (FreeStyle Lite Strips) check fasting blood sugar once a day blood-glucose meter (FreeStyle Lite Meter kit) check fasting blood sugar once a day [coQ10 (ubiquinol) ] ferrous sulfate 325 mg PO DAILY glucosamine-chondroitin 250-200 mg (Osteo Bi-Flex) 2 tabs PO TID lancets As directed lancets (Accu-Chek Fastclix Lancet Drum) Check blood sugar 3 times a day as directed lidocaine 5% 1 patch topical DAILY losartan 100 mg PO DAILY [magnesium ] metformin 1,000 mg PO BID metoprolol tartrate 100 mg PO DAILY multivitamin 1 tab PO DAILY mupirocin 2% 1 appl topical BEDTIME rosuvastatin 10 mg PO .QSATURDAY semaglutide (Ozempic) 1 mg subcut QWEEK spironolactone 25 mg PO DAILY Tobacco use date assessed: 09/11/24 Fall risk assessment: No Falls in past year Last assessed Fall Risk: 09/11/24 Dental Screening Dental Screen Date: 09/11/24 Did you have a dental visit in the last 12 months?: No Did you have a dental problem in the last 6 months where you did not have access to dental care?: No Was dental information given to patient?: No HPI f/u labs HPI Details 79-year-old male with history of diabete s mellitus, dyslipidemia hypertension and chronic wounds in buttocks , here today for his follow-up. He is currently on Ozempic 1 mg once a week, in addition to metformin 1000 mg 1 tablet twice a day for his diabetes mellitus, and takes rosuvastatin 10 mg once a week as well as losartan and metoprolol for control of his blood pressure. Latest fasting labs showed marked decrease in his renal function and elevated serum creatinine, patient denies any NSAID use, no urinary symptoms, hemoglobin A1c went up from 5.8% to 6.1%, but fasting lipids are within normal limits. Normocytic normochromic anemia also present. He is currently followed regularly by Dr. Lowery his oil sprayer who is treating him for tinea unguium and tinea pedis. [facility] is [facility] for chronic ulcers in his buttocks, and in heel. On review of last consult report from Wound Care, he has been referred to see Dermatology, Dr. Patel, but patient states that it is due for for him to go, it is also noted that he does not followed directions given by his wound care and instead of using the specific dressing that they gave him and applying tacrolimus, patient instead insists on just using bacitracin ointment. Patient states that he is currently being seen by endovascular surgery, but do not see any recent consult report in his record. Pain in lower back hips and knees, has been seen by Orthopedics in the past but patient states that they will not do any surgery until wounds in buttocks have healed. [facility] Medical History (Updated 09/11/24 @ 11:56 by Nubia Gray MD) Decreased glomerular filtration rate (GFR) Elevated serum creatinine Ulcer of left heel Chronic ulcer of buttock Hx of adenomatous polyp of colon Tinea unguium Anemia Elevated vitamin B12 level Osteoarthritis of left hip Dyslipidemia Eczema Essential hypertension Type 2 diabetes mellitus without complication, without long-term current use of insulin Surgical History Hx of colonoscopy History of cataract surgery H/O shoulder replacement History of total hip replacement Family History Father Smoker Emphysema, unspecified Mother HTN (hypertension) Diabetes mellitus Cancer Brother Diabetes mellitus Social History Housing: House Are you a primary care analyst to a significant other at home: No Do you presently have visiting nurse or other home services: No Alcohol intake: current Patient Tobacco Use Status: Never used Tobacco e-Cigarette/Vaping Use: Never Used service: No Current occupational status: retired Cognitive needs: No Hearing needs: No Vision needs: No Questionnaire PHQ-9 Over the last 2 weeks, how often have you been bothered by any of the following problems? Depression Screening Interpretation: Negative Depression Screening Done: Yes Source: Developed by Drs. Unruly Figueroa, Mey Ramírez, John Wagner and colleagues, with an educational christina from [employer]. Thrive Questionnaire Date Thrive assessed: 07/26/23 SHIRA-7 AMB Questionnaire SHIRA-7 Date SHIRA - 7 assessed: 07/26/23 Source: Developed by Drs. Unruly Figueroa, Mey Ramírez, Jonh Wagner and colleagues, with an educational christina from [employer]. Review of Systems Const Reports no additional complaints Eyes Details: Sees Dr. Fowler yearly Reports no additional complaints ENT Reports no additional complaints Card Denies chest pain, Denies rapid heart rate, Denies lightheadedness, Denies palpitations and Denies dyspnea Resp Denies chest congestion, Denies cough and Denies dyspnea GI Denies abdominal pain, Denies melena, Denies hematochezia, Denies change in stool character and Denies heartburn Reports no additional complaints Musc Reports abnormal gait (Limping on right, walks with a cane) and Reports arthralgias (Right hip right hip right hip) Skin/Breast Details: Patient also has a heel ulcer, seen by Dr. Lowery who in turn referred him to [facility] wound clinic Neuro Reports no additional complaints and Reports abnormal gait (Limping on right, walks with a cane) Psych Reports no additional complaints Endo Denies palpitations Oscar/Lymph Reports no additional complaints Aller/Immun Reports no additional complaints Physical exam (Primary Care) Vital Signs: Last Vital Signs Temp 97.9 F 09/11/24 10:58 Pulse 86 09/11/24 10:58 Resp 16 09/11/24 10:58 BP 110/70 09/11/24 10:58 Pulse Ox 100 09/11/24 10:58 Oxygen Delivery Method Room Air 09/11/24 10:58 BMI result Body Mass Index 26.9 Tobacco/Smoking Status: Tobacco use Status Tobacco use date assessed 09/11/24 09/11/24 11:00 Patient Tobacco Use Status Never used Tobacco 09/11/24 11:00 e-Cigarette/Vaping Use Never Used 09/11/24 11:00 Depression Screening Interpretation: Negative Thrive Assessment: Date of Thrive Assessment Date Thrive assessed 07/26/23 09/11/24 11:00 Const Other: Alert oriented x3 no acute distress noted, ambulatory with assistance of a cane , favoring right leg HENMT Head: Yes normocephalic Ears: external ears normal General nose exam: Normal external nose present Face and sinus: Yes face symmetric Mouth: Normal oral and palatal mucosa present and moist mucous membranes Eyes General: appearance normal, both eyes and all related structures Neck Other: Supple, no lymphadenopathy , thyroid gland nonpalpable Resp Auscultation: clear to auscultation bilaterally Cardio Other: S1-S2 present regular rate and rhythm GI Other: Normal bowel sounds, soft, nontender, no mass palpated General: Yes no CVA tenderness Back/Spine/Pelvis Back: no CVA tenderness and No back tenderness Skin Other: superficial ulceration with no drainage noted on medial left and right buttock respectively, no surrounding erythema or swelling Neuro General: tone normal, moves all extremities, no focal motor deficits and decrease sensation to monofilament Cranial nerves: Yes CN's II-XII intact bilaterally Cognition (Neuro): normal cognition Gait exam (Neuro): Antalgic gait present (Favoring right leg) Extrem General: Yes no joint enlargement, Yes Limp noted (right) and Yes pedal edema (Bilateral) Results Reviewed Results Reviewed: Laboratory Tests Name: Tobin Bey Age/Sex: 79/M : 1945 Unit#: [id number] Attend Dr: Nubia Gray MD Re08/29/24 Status: DEP [facility] Disch: SPEC : [id number] UZMA: 08/29/24 STATUS: COMP REQ : [id number] RECD: 08/29/[address]: Nubia Gray MD COMP: 08/29/24 ENTERED: 08/29/[address] [facility] [address]: ORDERED: CBC Auto Diff Test Result Flag Reference WBC 6.4 4.8-10.8 X10* 3/uL RBC 4.40 L 4.60-5.80 X10*6/uL HGB 12.3 L 14.0-18.0 g/dl HCT 37.7 L 42.0-52.0 % MCV 85.7 80.0-98.0 fL MCH 28.0 27.0-33.0 pg MCHC 32.6 31.0-36.0 g/dl RDW 14.9 11.0-16.0 % PLT 265 160-400 X10*3/uL MPV 9.3 L 9.4-12.4 fL Neut Pct Auto 64.3 45-73 % ImGran Pct Auto 0.5 H 0.0-0.4 % Lymp Pct Auto 20.4 20-40 % [place] Pct Auto 11.2 H 2-11 % Eos Pct Auto 2.5 0-4 % Baso Pct Auto 1.1 0-2 % NRBC Pct Auto 0.0 0.0-0.2 /100WBC ANC Neut Abs # 4.1 2.0-8.3 x10*3/uL ImGran Abs Auto 0.03 0.00-0.03 X10*3/uL Lymph Abs Auto 1.3 1.2-4.9 X10*3/uL [place] Abs Auto 0.7 0.1-1.2 X10*3/uL Eos Abs Auto 0.2 0.0-0.4 X10*3/uL Baso Abs Auto 0.1 0.0-0.2 X10*3/uL NRBC Abs Auto 0.000 0.0-0.012 X10*3/uL Name: Tobin Bey Age/Sex: 79/M : 1945 Unit#: [id number] Attend Dr: Nubia Gray MD Re08/29/24 Status: DEP REF [facility] Disch: SPEC : [id number] UZMA: 08/29/24 STATUS: COMP REQ : [id number] RECD: 08/29/24 [facility] DR: Nubia Gray MD COMP: 08/29/243 ENTERED: 08/29/[address]: ORDERED: Met Prof Fast, AST, ALT, Lipid Panel, Vitamin D 25-OH Test Result Flag Reference Sodium 137 135-145 mmol/L Potassium 4.2 3.3-5.1 mmol/L CL 105 96-108 mmol/L CO2 23 22-29 mmol/L Gap 13 12-20 BUN 54 H 9-16 mg/dL Creat 2.07 H 0.5-1.4 mg/dL eGFR 31 Chronic Kidney Disease: Estimated GFR < 60 mL/mi n/1.73m2 Severe Kidney Disease: Estimated GFR < 15 mL/min/1.73m2 FBS 105 H 60-99 mg/dL A fasting glucose from 100-125 mg/dl is considered impaired (pre-diabetes). CA 9.9 # 8.4-10.2 mg/dL AST (GOT) 22 5-37 U/L ALT (GPT) 10 0-40 U/L Triglyceride 97 <150 mg/dL Desirable Triglyceride: less than 150 mg/dL Borderline High Triglyceride 150-199 mg/dL High Triglyceride: 200-499 mg/dL Very High Triglyceride: greater than or equal to 5OO mg/dL Cholesterol 118 <200 mg/dL Desirable Cholesterol: less than 200 mg/dL Borderline High Cholesterol: 200-239 mg/dL High Cholesterol: greater than 239 mg/dL LDL Calculated 52 <100 mg/dL Desirable LDL: less than 100 mg/dL Near Optimal/Above Optimal LDL: 110-129 mg/dL Borderline High LDL: 130-159 mg/dL High LDL: 160-189 mg/dL Very High LDL: greater than or equal to 190 mg/dL HDL 47 >40 mg/dL Desirable HDL: greater than 40 mg/dL Note: This HDL assay may give artificially low results in patients with liver disease. Vitamin D 25-OH 44.3 >30 ng/mL Health Based Reference Values* < 20 ng/mL Deficient 20-30 ng/mL Insufficient > 30 ng/mL Sufficient 05/23/24 08/29/24 08:12 07:17 Estimat Average Glucose 128 Hemoglobin A1c % 5.8 6.1 H Urine Creatinine 84.66 Urine Microalbumin 21.0 Microalb/Creat Ratio 24.8 Coding Level of Care Code Est Pt Level 4 (87128) Complex EM visit Add On G2211 Diagnoses Elevated serum creatinine R79.89 Type 2 diabetes mellitus without complication, without long-term current use of insulin E11.9 Essential hypertension I10 Dyslipidemia E78.5 Decreased glomerular filtration rate (GFR) R94.4 Assessment & Plan Assessment & Plan (1) Elevated serum creatinine: Code(s): R79.89 - Other specified abnormal findings of blood chemistry Category: Medical Plan: Patient told to stop taking metformin, avoid NSAIDs, nephrology consult ordered (2) Type 2 diabetes mellitus without complication, without long-term current use of insulin: Code(s): E11.9 - Type 2 diabetes mellitus without complications Category: Medical Plan: Will stop metformin for now, here with semaglutide 1 mg subcutaneously given once a week. Continue monitor blood sugar levels and repeat hemoglobin A1c electrolytes renal function liver enzymes and lipid panel in November 2024 (3) Essential hypertension: Comment: ff'd by dr madsen Code(s): I10 - Essential (primary) hypertension Category: Medical Plan: Blood pressure at goal of less than 130/80. Continue with current medication. Reinforced importance of following a low sodium diet, getting regular exercise, and lowering stress levels. (4) Dyslipidemia: Code(s): E78.5 - Hyperlipidemia, unspecified Category: Medical Plan: Reviewed recent fasting lipid profile with patient with levels . Continue taking rosuvastatin 10 mg once a week , in addition to adherence to low- cholesterol diet and regular exercise, at least 30 minutes 3 to 4 times a week. Advised patient to make healthy food choices, eat more fruits, vegetables, whole grains, wild caught fish and low-fat dairy. Limit amount of meat and fried or fatty food products, as well as processed foods and fast foods. Follow-up scheduled with repeat fasting lipid panel in 3 months. (5) Decreased glomerular filtration rate (GFR): Code(s): R94.4 - Abnormal results of kidney function studies Category: Medical Plan: Advised to stop metformin, nephrology consult ordered Orders: Orders Alanine Aminotransferase 11/29/24 E11.9 - Type 2 diabetes mellitus without complications, E78.5 - Hyperlipidemia, unspecified, I10 - Essential (primary) hypertension, R79.89 - Other specified abnormal findings of blood chemistry, R94.4 - Abnormal results of kidney function studies Complete Blood Count Auto Diff 11/29/24 E11.9 - Type 2 diabetes mellitus without complications, E78.5 - Hyperlipidemia, unspecified, I10 - Essential (primary) hypertension, R79.89 - Other specified abnormal findings of blood chemistry, R94.4 - Abnormal results of kidney function studies Basic Metabolic Panel Fasting 11/29/24 E11.9 - Type 2 diabetes mellitus without complications, E78.5 - Hyperlipidemia, unspecified, I10 - Essential (primary) hypertension, R79.89 - Other specified abnormal findings of blood chemistry, R94.4 - Abnormal results of kidney function studies Aspartate Amino Transferase 11/29/24 E11.9 - Type 2 diabetes mellitus without complications, E78.5 - Hyperlipidemia, unspecified, I10 - Essential (primary) hypertension, R79.89 - Other specified abnormal findings of blood chemistry, R94.4 - Abnormal results of kidney function studies Hemoglobin A1c 11/29/24 E11.9 - Type 2 diabetes mellitus without complications, E78.5 - Hyperlipidemia, unspecified, I10 - Essential (primary) hypertension, R79.89 - Other specified abnormal findings of blood chemistry, R94.4 - Abnormal results of kidney function studies Lipid Panel 11/29/24 E11.9 - Type 2 diabetes mellitus without complications, E78.5 - Hyperlipidemia, unspecified, I10 - Essential (primary) hypertension, R79.89 - Other specified abnormal findings of blood chemistry, R94.4 - Abnormal results of kidney function studies IRON PROFILE 11/29/24 E11.9 - Type 2 diabetes mellitus without complications, E78.5 - Hyperlipidemia, unspecified, I10 - Essential (primary) hypertension, R79.89 - Other specified abnormal findings of blood chemistry, R94.4 - Abnormal results of kidney function studies Referrals Nephrology Referral R79.89 - Other specified abnormal findings of blood chemistry
--- OUTSIDE RECORDS SUMMARY | 2024-09-11 12:53 | XMS_ITS | Encounter Summary ---
Author Organization [facility] Address [address] [place] [address] Care Team Providers Care Pocket Operator Name Role Phone Jagjit Hancock Primary Care Provider Gigi price Encounter Details Date Type Department Care Team (Latest Contact Info) Description 08/16/2024 Lab Requisition [facility] [address] [place] [phone] Rebecca Gomez MD [address] [place] [phone] Essential (primary) hypertension; Anemia, unspecified; Cellulitis, unspecified; Type 2 diabetes mellitus without complications (CMS/HCC V24, CMS/HCC V28) Social History Tobacco Use Types Packs/Day Years [...] Comprehensive metabolic panel (08/18/2024 7:18 AM EDT) [facility] Signature Sodium 132(L) 133 - 145 mmol/L LAB CHEMISTRY METHOD 08/18/2024 12:46 PM [facility] Potassium 4.4 3.5 - 5.5 mmol/L LAB CHEMISTRY METHOD 08/18/2024 12:46 PM [facility] Chloride 95(L) 96 - 110 mmol/L LAB CHEMISTRY METHOD 08/18/2024 12:46 PM [facility] CO2 27 21 - 32 mmol/L LAB CHEMISTRY METHOD 08/18/2024 12:46 PM [facility] Anion Gap 10 3 - 11 LAB CHEMISTRY METHOD 08/18/2024 12:46 PM [facility] Glucose 88 70 - 100 mg/dL LAB CHEMISTRY METHOD 08/18/2024 12:46 PM [facility] BUN 34(H) 5 - 25 mg/dL LAB CHEMISTRY METHOD 08/18/2024 12:46 PM [facility] Creatinine 1.19 0.70 - 1.30 mg/dL LAB CHEMISTRY METHOD 08/18/2024 12:46 PM [facility] eGFR 63 >=60 mL/min/1. 73m2 LAB CHEMISTRY METHOD 08/18/2024 12:46 PM [facility] Comment:Calculation based on the??Chronic Kidney Disease Epidemiology Collaboration (CKD-EPI) equation refit??without adjustment for race. BUN/Creatinine Ratio 28.6 LAB CHEMISTRY METHOD 08/18/2024 12:46 PM [facility] Calcium 9.7 8.5 - 10.5 mg/dL LAB CHEMISTRY METHOD 08/18/2024 12:46 PM [facility] AST (SGOT) 30 10 - 42 unit/L LAB CHEMISTRY METHOD 08/18/2024 12:46 PM [facility] ALT (SGPT) 34 10 - 60 unit/L LAB CHEMISTRY METHOD 08/18/2024 12:46 PM EDT [facility] Alkaline Phosphatase 93 42 - 121 unit/L LAB CHEMISTRY METHOD 08/18/2024 12:46 PM EDT [facility] Total Protein 7.2 6.0 - 8.0 g/dL LAB CHEMISTRY METHOD 08/18/2024 12:46 PM [facility] Albumin 3.4 3.2 - 5.0 g/dL LAB CHEMISTRY METHOD 08/18/2024 12:46 PM EDT [facility] Total Bilirubin 0.6 0.0 - 1.4 mg/dL LAB CHEMISTRY METHOD 08/18/2024 12:46 PM T [facility] Blood Venous blood specimen / Unknown Venipuncture / Unknown 08/18/2024 7:18 AM EDT 08/18/2024 11:03 AM EDT Rebecca Gomez MD LAB BLOOD ORDERABLES Final Resul t [facility] [address] [place] [address], * (ABNORMAL) Complete blood count (08/18/2024 7:18 AM EDT) WBC 7.0 4.8 - 10.8 K/mcL LAB HEMETOLOGY METHOD 08/18/2024 11:59 AM EDT [facility] RBC 4.90 4.50 - 5.50 M/mcL LAB HEMETOLOGY METHOD 08/18/2024 11:59 AM EDT [facility] Hemoglobin 14.1 13.5 - 17.5 g/dL LAB HEMETOLOGY METHOD 08/18/2024 11:59 AM T [facility] Hematocrit 41.1(L) 42.0 - 54.0 % LAB HEMETOLOGY METHOD 08/18/2024 11:59 AM EDT [facility] MCV 83.4 79.0 - 98.0 FL LAB HEMETOLOGY METHOD 08/18/2024 11:59 AM EDT [facility] MCH 28.6 27.0 - 32.0 pcg LAB HEMETOLOGY METHOD 08/18/2024 11:59 AM EDT [facility] MCHC 34.3 32.0 - 37.0 g/dL LAB HEMETOLOGY METHOD 08/18/2024 11:59 AM EDT [facility] RDW 14.2 11.0 - 15.0 % LAB HEMETOLOGY METHOD 08/18/2024 11:59 AM EDT [facility] Platelets 266 130 - 400 K/mcL LAB HEMETOLOGY METHOD 08/18/2024 11:59 AM EDT [facility] MPV 8.9 7.0 - 11.0 FL LAB HEMETOLOGY METHOD 08/18/2024 11:59 AM EDT [facility] NRBC 0.0 <1.0 % LAB HEMETOLOGY METHOD 08/18/2024 11:59 AM EDT [facility] NRBC Absolute 0.00 <0.10 K/mcL LAB HEMETOLOGY METHOD 08/18/2024 11:59 AM EDT [facility] Blood Venous blood specimen / Unknown Venipuncture / Unknown 08/18/2024 7:18 AM EDT 08/18/2024 11:03 AM EDT us Rebecca Gomez MD LAB BLOOD ORDERABLES Final Resul t [facility] [address] [place] [address], documented in this encounter Visit Diagnoses Diagnosis Essential (primary) hypertension Unspecified essential hypertension Anemia, unspecified Cellulitis, unspecified Type 2 diabetes mellitus without complications (CMS/HCC V24, CMS/HCC V28) documented in this encounter Additional Health Concerns Infection Onset Date Last Indicated Resolved Time C. difficile 08/02/2024 08/02/2024 08/26/2024 7:06 PM EDT documented as of this encounter Care Teams Pocket Operator Relationship Specialty Start Date End Date Jagjit Hancock PA [address] [place] [address] [place] [phone] PCP - General Physician Process Mold Technician 07/23/24 documented as of this encounter
--- OUTSIDE RECORDS SUMMARY | 2024-09-11 12:54 | XMS_ITS | Encounter Summary ---
Author Name [facility] Organization [facility] Address [address] [place] [address] Care Team Providers Care Laborer Prestressed Concrete Name Role Phone ELISSA TRUJILLO Primary Care [...] MEDICARE SUPPLEMEN MARIEL Apr 27, 2012 PLAN [id number] UL PATIENT AARP MED [facility] MEDICARE SUPPLEMEN MARIEL Apr 27, 2012 [facility] [id number] [phone] ELIZABETH AMOS UL PATIENT MEDICARE (WNR) MEDICARE (M) PART A 2011 PART A [id number] ELIZABETH AMOS UL PATIENT MEDICARE (WNR) MEDICARE (M) PART B 2011 PART B [id number] ELIZABETH AMOS UL PATIENT Selected Encounter This section includes the information on record at [place] for the Encounter. Date/Time Encounter Type Encounter Description Reason Pro vider Source Nov 27, 2023 01:30 PM Outpatient Encounter PRIMARY CARE/MEDICINE E Encounter Template Text not used by [place] Plan of Treatment: Future Appointments (+ 6 [...] 15, 2024 09:00 AM AMBULATORY - MEDICINE [place] [facility] [place] [facility] Mar 06, 2024 03:00 PM AMBULATORY - MEDICINE [facility] Social History: Smoking Status [...] 14, 2023 01:30 PM [place]-TOBACCO NEVER USED [facility] Tobacco Use History This section includes a history of the smoking, or tobacco-related health factors, that were collected on or before the date of the Encounter. The data comes from the [place] facility where the Encounter took place. Date/Time Smoking Status/Tobacco Use Comment [facility] Jan 27, 2022 02:00 PM [place]-TOBACCO NEVER USED [facility] Nov 08, 2017 10:02 AM [place]-TOBACCO NEVER USED [facility] Nov 08, 2017 08:55 AM LIFETIME NON-TOBACCO USER [facility] Nov 08, 2016 09:08 AM LIFETIME NON-TOBACCO USER [facility] October 21, 2015 02:24 PM LIFETIME NON-TOBACCO USER [facility] Sep 10, 2012 09:28 AM LIFETIME NON-TOBACCO USER [facility]
--- OUTSIDE RECORDS SUMMARY | 2024-09-11 12:54 | XMS_ITS | Encounter Summary ---
Author Organization [facility] Address [address] [place] [address] Care Team Providers Care Switch Crew Supervisor Name Role Phone Jagjit Hancock Primary Care Provider Gigi price Encounter Details Date Type Department Care Team (Latest Contact Info) Description 08/08/2024 Lab Requisition [facility] - Main Lab [address] [place] [phone] Rebecca Gomez MD [address] [place] [phone] Essential (primary) hypertension; Anemia, unspecified; Cellulitis, unspecified; [...] Comprehensive metabolic panel (08/11/2024 6:40 AM EDT) [facility] Signature Sodium 134 133 - 145 mmol/L LAB CHEMISTRY METHOD 08/11/2024 11:47 AM [facility] Potassium 3.7 3.5 - 5.5 mmol/L LAB CHEMISTRY METHOD 08/11/2024 11:47 AM [facility] Chloride 96 96 - 110 mmol/L LAB CHEMISTRY METHOD 08/11/2024 11:47 AM [facility] CO2 26 21 - 32 mmol/L LAB CHEMISTRY METHOD 08/11/2024 11:47 AM [facility] Anion Gap 12(H) 3 - 11 LAB CHEMISTRY METHOD 08/11/2024 11:47 AM [facility] Glucose 94 70 - 100 mg/dL LAB CHEMISTRY METHOD 08/11/2024 11:47 AM [facility] BUN 28(H) 5 - 25 mg/dL LAB CHEMISTRY METHOD 08/11/2024 11:47 AM [facility] Creatinine 1.09 0.70 - 1.30 mg/dL LAB CHEMISTRY METHOD 08/11/2024 11:47 AM [facility] eGFR 70 >=60 mL/min/1. 73m2 LAB CHEMISTRY METHOD 08/11/2024 11:47 AM [facility] Comment:Calculation based on the??Chronic Kidney Disease Epidemiology Collaboration (CKD-EPI) equation refit??without adjustment for race. BUN/Creatinine Ratio 25.7 LAB CHEMISTRY METHOD 08/11/2024 11:47 AM [facility] Calcium 9.3 8.5 - 10.5 mg/dL LAB CHEMISTRY METHOD 08/11/2024 11:47 AM [facility] AST (SGOT) 24 10 - 42 unit/L LAB CHEMISTRY METHOD 08/11/2024 11:47 AM [facility] ALT (SGPT) 25 10 - 60 unit/L LAB CHEMISTRY METHOD 08/11/2024 11:47 AM EDT [facility] Alkaline Phosphatase 86 42 - 121 unit/L LAB CHEMISTRY METHOD 08/11/2024 11:47 AM EDT [facility] Total Protein 6.8 6.0 - 8.0 g/dL LAB CHEMISTRY METHOD 08/11/2024 11:47 AM EDT [facility] Albumin 3.3 3.2 - 5.0 g/dL LAB CHEMISTRY METHOD 08/11/2024 11:47 AM EDT [facility] Total Bilirubin 0.5 0.0 - 1.4 mg/dL LAB CHEMISTRY METHOD 08/11/2024 11:47 AM EDT [facility] Blood Venous blood specimen / Unknown Venipuncture / Unknown 08/11/2024 6:40 AM EDT 08/11/2024 11:02 AM EDT Rebecca Gomez MD LAB BLOOD ORDERABLES Final Resul t [facility] [address] [place] [address], * (ABNORMAL) Complete blood count (08/11/2024 6:40 AM EDT) WBC 4.7(L) 4.8 - 10.8 K/[facility] LAB HEMETOLOGY METHOD 08/11/2024 11:54 AM EDT [facility] RBC 4.50 4.50 - 5.50 M/[facility] LAB HEMETOLOGY METHOD 08/11/2024 11:54 AM EDT [facility] Hemoglobin 12.6(L) 13.5 - 17.5 g/dL LAB HEMETOLOGY METHOD 08/11/2024 11:54 AM [facility] Hematocrit 37.8(L) 42.0 - 54.0 % LAB HEMETOLOGY METHOD 08/11/2024 11:54 AM EDT [facility] MCV 84.6 79.0 - 98.0 FL LAB HEMETOLOGY METHOD 08/11/2024 11:54 AM EDT [facility] MCH 28.2 27.0 - 32.0 pcg LAB HEMETOLOGY METHOD 08/11/2024 11:54 AM EDT [facility] MCHC 33.3 32.0 - 37.0 g/dL LAB HEMETOLOGY METHOD 08/11/2024 11:54 AM EDT [facility] RDW 13.9 11.0 - 15.0 % LAB HEMETOLOGY METHOD 08/11/2024 11:54 AM EDT [facility] Platelets 231 130 - 400 K/mcL LAB HEMETOLOGY METHOD 08/11/2024 11:54 AM EDT [facility] MPV 9.6 7.0 - 11.0 FL LAB HEMETOLOGY METHOD 08/11/2024 11:54 AM EDT [facility] NRBC 0.0 <1.0 % LAB HEMETOLOGY METHOD 08/11/2024 11:54 AM EDT [facility] NRBC Absolute 0.00 <0.10 K/mcL LAB HEMETOLOGY METHOD 08/11/2024 11:54 AM EDT [facility] Blood Venous blood specimen / Unknown Venipuncture / Unknown 08/11/2024 6:40 AM EDT 08/11/2024 11:02 AM EDT us Rebecca Gomez MD LAB BLOOD ORDERABLES Final Resul t [facility] [address] [place] [address], documented in this encounter Visit Diagnoses Diagnosis Essential (primary) hypertension Unspecified essential hypertension Anemia, unspecified Cellulitis, unspecified Type 2 diabetes mellitus without complications (CMS/HCC V24, CMS/HCC V28) documented in this encounter Additional Health Concerns Infection Onset Date Last Indicated Resolved Time C. difficile 08/02/2024 08/02/2024 08/26/2024 7:06 PM EDT documented as of this encounter Care Teams Switch Crew Supervisor Relationship Specialty Start Date End Date Jagjit Hancock PA [address] [place] [address] [place] [phone] PCP - General Physician Plate Cleaner 07/23/24 documented as of this encounter
--- OUTSIDE RECORDS SUMMARY | 2024-09-11 12:54 | XMS_ITS ---
Author Organization [facility] Address [address] [place] [address] Care Team Providers Care Fisheries Officer Name Role Phone Marina MCDANIELS, Nubia Primary Care Provider Gigi Pimentel Jr, Daryn Roman Encounters Encounter Location Date Provider Diagnosis [facility] [address] [place] [address] 05/30/2024 Daryn Pimentel Jr Plan Of Treatment Next Appt Details Provider Name:Daryn esquivel Jr, 09/11/2024 03:35:00 PM, [address], [address], [place], [address], Progress Notes * REUBEN AMOSDOB:1945 ( 78 yo M)Acc No.[id number]:05/30/2024 Patient:?REUBEN AMOS :1945???Age:78 Y???Sex:Male Address:[place] [address] * true * Date:? Generated for Duanei raciel/Yang/eTransmitting on:?09/11/2024 12:53 PM EDT
--- OUTSIDE RECORDS SUMMARY | 2024-09-11 12:54 | XMS_ITS ---
Author Organization [facility] Address [address] [facility] [address] [place] [phone] Care Team Providers Care Tube Drawer Name Role Phone Marina MCDANIELS, Nubia Primary Care Provider Gigi Pimentel Jr, Daryn Roman [phone] REASON FOR VISIT colon screening Encounters Encounter Location Date Provider Diagnosis [facility] [address] [facility] [address] [place] [phone] 09/11/2024 Daryn Pimentel Jr Plan Of Treatment Next Appt Details Provider Name:Daryn esquivel Jr, 09/11/2024 03:35:00 PM, [address] [facility], [address], [place], [address], Progress Notes * REUBEN AMOSDOB:1945 ( 79 yo M)Acc No.[id number]:09/11/2024 Progress Notes Patient:?REUBEN AMOS Provider:?Daryn Pimentel MD :1945???Age:79 Y???Sex:Male Romeo e:09/11/2024 Address:[place] Pcp:Nubia Gray MD Subjective: * Chief Complaints: * ???1. Colon screening. * Medical History:? Objective: * Vitals:? Assessment: Plan: * Treatment: * * The named appointment provid er may or may not be the originator of this progress note, and it is not deemed complete until electronically signed by the appointment provider. Sign off status: Pending * Provider:?Daryn Pimentel MD Date:?0 09/11/2024 Generated for Tu schrader/Yang/Jean on:?09/11/2024 12:54 PM EDT
--- OUTSIDE RECORDS SUMMARY | 2024-09-11 12:54 | XMS_ITS | Patient Health Record ---
Author Organization [facility] Address [address] [place] [phone] Care Team Providers Care Director Mobile Name Role Phone Marina MCDANIELS, Nubia Primary Care Provider Daryn Brito Jr Unavailable Reason For Referral No Information Medications Medication SIG (Take, Route, Frequency, Duration) Notes Start Date End Date Status metFORMIN HCl 1000mg 1 tablet with meals Orally Twice a day Active Losartan Potassium-HCTZ 100-25mg 1 tablet Orally Once a day A ctive Aspir-81 81mg 1 tablet Orally Once a day Active Naproxen 500mg 1 tablet Orally Twic e a day Active Trulicity 0.75 MG/0.5ML as directed Subc utaneous as directed Active MiraLax (colon prep) 8.3 ounce ((238) grams mixed with Gatorade or Crystal Light orally begin at 5:00 p.m. 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 (Z79.82) Active confirmed Problem 31821342 Iron deficiency anemia, unspecified iron deficiency anemia type (D50.9) Active confirmed Encounters Encounter Location Date Provider Diagnosis [facility] [address] [place] [address] 05/30/2024 Daryn Pimentel Jr Plan Of Treatment Pending Test Test Name Order Date GI BIOPSY 05/05/2016 Future Test Test Name Order Date COLONOSCOPY 08/29/2012 COLONOSCOPY 02/24/2016 UPPER GI ENDOSCOPY 10/01/2019 COLONOSCOPY 10/01/2019 Next Appt Details Provider Name:Daryn esquivel Jr, 09/11/2024 03:35:00 PM, [address], [address], [place], [address], Insurance Providers Payer Name Payer Address Payer Phone Subscriber Number Group Number Insured Name Patient Relationship to Insured Coverage Start Date Coverage End Date MEDICARE OF [place] [address] [place] [address] [id number] REUBEN AMOS Self - patient is the insured [facility] [employer] [address] [place] [address] [phone] [id number] REUBEN AMOS Self - patient is the insured Medical (General) History Medical History History ICD Code colonoscopy 05/05/16, lymphoi d polyp, recall 5 years due to prior history of tubular adenomas gerd hypertension torn ligament in the right knee Denies DE,CVA,Lung disease,renal disease diabetes mellitus hx of dehydration/went to ER yr 07/2019 Surgical History Surgery Date(Month/Year) cataract-lens implants left hip replacement right shoulder replacement
--- OUTSIDE RECORDS SUMMARY | 2024-09-11 12:54 | XMS_ITS | Encounter Summary ---
Author Name [facility] Organization [facility] Address [address] [place] [address] Care Team Providers Care Legal Operations Manager Name Role Phone ELISSA TRUJILLO Primary [facility] Insurance Providers: All historical and [...] MEDICARE SUPPLEMEN MARIEL Apr 27, 2012 PLAN [id number] [place] PATIENT AAR MED [facility] MEDICARE SUPPLEMEN MARIEL Apr 27, 2012 [facility] [id number] [place] PATIENT MEDICARE (WNR) MEDICARE (M) PART A 2011 PART A [id number] [place] PAT[place] ([place]NR) MEDICARE (M) PART B 2011 PART B [id number] [place] PAT[place] Selected Encounter This section includes the information on record at ME for the Encounter. Date/Time Encounter Type Encounter Description Reason Provider Source Dec 19, 2023 02:00 PM OFFICE O/P NEW LOW 30 MIN PODIATRY ICD-10-CM E11.51 Type 2 diabetes w diabetic peripheral angiopath w/o gangrene ANABEL SWEET Lily Encounter Template Text not used by ME Assessments - Encounter Diagnoses This section includes [...] activities for the patient from all [place] treatmentfacilities. This section includes future appointments and [...] 15, 2024 09:00 AM AMBULATORY - MEDICINE [facility] Mar 06, 2024 03:00 PM AMBULATORY [...] Padmini willingham Feb 14, 2023 01:30 PM ME-TOBACCO NEVER USED [place] Tobacco Use History This section includes a history of the smoking, or tobacco-related health factors, that were collected on or before the date of the Encounter. The data comes from the ME facility where the Encounter took place. Date/Time Smoking Status/Tobacco Use Comment F acshaneka Jan 27, 2022 02:00 PM ME-TOBACCO NEVER USED [place] Nov 08, 2017 10:02 AM ME-TOBACCO NEVER USED [place] Nov 08, 2017 08:55 AM LIFETIME NON-TOBACCO USER [place] Nov 08, 2016 09:08 AM LIFETIME NON-TOBACCO USER [place] October 21, 2015 02:24 PM LIFETIME NON-TOBACCO USER [place] Sep 10, 2012 09:28 AM LIFETIME NON-TOBACCO USER [place] Encounter Notes: All associated encounter notes This [...] and or orthotics have [facility] [place] located at [address] [place] [address]. A/P: pt informed they may milk pickup truck driver their shoes and or orthotics at their convenience any day, Sunday through Sundaybetween 8:30am and 3:30pm and Sunday 8:30am and 3:30pm. They do not need an appointment. But we do request that they call before arriving to make sure the Podiatry Health Electric Meter Tester is available on that day. No barriers; Patient understands and agrees to current plan. /med/ MAYDA GARCIA [facility] INDIVIDUAL PENSION CONSULTANT Signed: 01/08/2024 09:46 MAYDA GARCIA [place] Jan 01, 2024 08:18 AM LETTERS: LOCAL TITLE: PATIENT LETTER (B) STANDARD TITLE: LETTERS DATE OF NOTE: JAN 01, 2024@08:18 ENTRY DATE: JAN 01, 2024@08:18:19 AUTHOR: MAYDA GARCIA EXP COSIGNER: URGENCY: STATUS: COMPLETED [facility] [place] [address] [phone] * REUBEN Patterson [address] [place], [place] [address] Date: JAN 01, 2024 Dear : This is a reminder letter that your SHOES are ready for pick at the [facility] [place] located at [address] [place] [address]. You may milk pickup truck driver your shoes and or orthotics at your convenience any day, Sunday through Sunday between 8:30am and 3:30pm. You do not need an appointment. BUT WE DO REQUEST THAT YOU CALL BEFORE ARRIVING TO MAKE SURE THE PODIATRY HEALTH INDIVIDUAL PENSION CONSULTANT IS AVAILABLE ON THAT DAY. Call [phone] for Mayda if you have any questions. We hope to see you soon, Sincerely, Office Staff for:ELISSA TRUJILLO Care Provider Upcoming Appointments: 03/06/2024 15:00 CWM/SO/PACT 1 CORSET FITTER MAYDA GARCIA [place] Dec 19, 2023 08:22 AM PODIATRY CONSULT: LOCAL TITLE: CONSULT REPORT/PODIATRY STANDARD TITLE: PODIATRY CONSULT DATE OF NOTE: DEC 19, 2023@08:22 ENTRY DATE: DEC 19, 2023@08:22:35 AUTHOR: ANABEL SWEET COSIGNER: URGENCY: STATUS: COMPLETED NAME: REUBEN AMOS DATE: DEC 19, 2023 : Aug PCP: ELISSA TRUJILLO LAST SEEN: INITIAL CONSULT VISIT TODAY NOTE: HAS RECEIVED BOTH COVID VACCINE DOSES + 3 BOOSTERS AT [facility] HPI: Pt. is a 78 yo alert [...] IS BEING TREATED BY WOUND CARE IN [place] AND IS BEING SEEN FOR VASCULAR SURGEON AT [facility] AND HAS A MEAT COOLER WELL : DR. JUAREZ AT [facility] FOR HIS NAILS AND CALLUS has [...] the source for the followin. Hyperlipidemia (SCT [id number]) 2. Psoriasis 3. Pressure injury of buttock 4. Pain in right hip joint 5. At risk of pressure ulcer (SNOMED CT 309839588) 6. Iron deficiency anemia 7. OA - Osteoarthritis of hip 8. Polyp of colon 9. Osteoarthritis 10. DM - Diabetes mellitus (SNOMED CT 46872964) 11. HTN - Hypertension (SNOMED CT 02381509) 12. Postsurgical Status of Cataract Extraction *NOTE: [...] IS BEING TTREATED AT WOUND CARE IN [place] AND DID NOT WISH ANY CARE TO [...] present physical-medical status. Protective sensation utilizing a [place] lOg monofilament is 0/10 bilateral. PATIENT RELATES [...] HAVE ANY OTHER CARE HE HAS A MEAT COOLER IN [place] WHO HE SEES JENNIFER 2-3 MONTHS AND [...] of active outpatient prescriptions dispensed from this ME (local) and dispensed from another ME or [facility] facility (remote) as well as inpatient orders [...] or non-VA provider. /med/ ANABEL SWEET DPM MEAT COOLER Signed: 12/19/2023 16:23 [place]NABEL [place]
--- OUTSIDE RECORDS SUMMARY | 2024-09-11 12:54 | XMS_ITS | Encounter Summary ---
Author Name [facility] [place] [place] Organization [facility] [place] [place] Address [address] [place] [address] Care Team Providers Care Weaver [place] Name Role Phone ELISSA TRUJILLO Primary [facility] Insurance Providers: All historical and [...] MEDICARE SUPPLEMEN MARIEL Apr 27, 2012 PLAN [id number] [phone] [place] PAT[place] AAR MED [facility] MEDICARE SUPPLEMEN MARIEL Apr 27, 2012 [facility] [id number] [phone] [place] MEDICARE (WNR) MEDICARE (M) PART A 2011 PART A [id number] [place]IC[place] ([place]NR) MEDICARE (M) PART B 2011 PART B [id number] [place] Selected Encounter This section includes the information on record at [place] for the Encounter. Date/Time Encounter Type Encounter Description Reason Provider Source Jul 17, 2024 02:30 PM OFFICE O/P EST HI 40 MIN PRIMARY CARE/MEDICINE ICD-10-CM L03.116 Cellulitis of left lower limb RONNIEELISSA Patterson [facility] Encounter Template Text not used by [facility] Assessments - Encounter Diagnoses This section includes the primary and secondary diagnoses documented for the Encounter. Date/Time Primary/Secondary Diagnosis Diagnosis Name Provider Source Aug 01, 2024 01:12 PM PRIMARY Cellulitis of left lower limb [place]UJILLOELISSA [place] Aug 01, 2024 01:12 PM SECONDARY Cellulitis of right lower limb ELISSA TRUJILLO [place] Aug 01, 2024 01:12 PM SECONDARY Muscle weakness (generalized) TRUJILLOELISSA Patterson [place] Lab Results: +/- 30 days of the encounter This section includes the Chemistry and Hematology Lab Results on record with [place] for the patient. Radiology Reports and Pathology Reports are provided separately, in subsequent sections. Lab Results This section contains the Chemistry/Hematology Results that were resulted 30 days before or 30 daysafter the date of the Encounter. Date/Time Source Result Type Result - Unit Interpretation Reference Range Specimen Type Comment Jul 11, 2024 08:38 AM [place] HEMOGLOBIN A1C PANEL BLOOD Specimen T ype: BLOOD Comment: Values obtained from A1C measurements can vary. For atypical A1C assays, a reported value of 7.0 could actually be between 6.72 and 7.28 if measured by a reference method. A reported value of 9.0 could actually be between 8.73 and 9.27. Ref: http://www.ngsp .org/CAPdata.as p Ordering Provider: ELISSA TRUJILLO Report Released Date/Time: Jul 11, 2024 08:32 AM Reporting Lab: [address] [address] Performing Lab: [address] [address] HEMOGLOBIN A1C 6.2 H 4.0-5.6 Jul 11, 2024 08:38 AM [place] MICROALBUMIN CREATININE RATIO PANEL URINE Specimen Type: URINE No comment entered. Ordering Provider: ELISSA TRUJILLO Report Released Date/Time: Jul 11, 2024 08:32 AM Reporting Lab: [address] [address] Performing Lab: [address] [address] MICROALBUMIN/CREATININE RATIO 6.9 mg/g 0 -29.9 MICROALBUMIN,QUANTITATIVE 0.7 mg/dL RR U NAVAIL CREATININE URINE 101.71 mg/dL Jul 11, 2024 08:38 AM [place] TSH SERUM Sp ecimen Type: SERUM No comment entered. Ordering Provider: ELISSA TRUJILLO Report Released Date/Time: Jul 11, 2024 08:32 AM Reporting Lab: [facility] [address] [address] Performing Lab: [facility] [address] [address] TSH 4.62 u[IU]/mL 0.35-5.00 Jul 11, 2024 08:38 AM [place] VITAMIN D (25-OH) SERUM Specimen Type: SERUM No comment entered. Ordering Provider: ELISSA TRUJILLO Report Released Date/Time: Jul 11, 2024 08:32 AM Reporting Lab: [facility] [address] [address] Performing Lab: [facility] [address] [address] VITAMIN D (25-OH) 48 ng/mL 20-50 Jul 11, 2024 08:38 AM [place] CBC BLOOD Sp ecimen Type: BLOOD No comment entered. Ordering Provider: ELISSA TRUJILLO Report Released Date/Time: Jul 11, 2024 08:32 AM Reporting Lab: [facility] [address] [address] Performing Lab: [facility] [address] [address] WBC 9.27 10*3/uL 4.50-11.00 RBC 4.41 10*6/uL 4.23-5.66 HGB 12.3 g/dL L 12.8-17 HCT 37.7 L 39.2-50.4 MCV 85.5 fL 82-99 MCHC 32.6 g/dL 30.8-35.1 PLT 277 10*3/uL 140-360 RDW-CV 13.8 12.0-16.0 MCH 27.9 pg 26.2-32.6 Jul 11, 2024 08:38 AM [place] LIPID PANEL, NON FASTING SERUM Specim en Type: SERUM No comment entered. Ordering Provider: ELSISA TRUJILLO Report Released Date/Time: Jul 11, 2024 08:32 AM Reporting Lab: [address] [address] Performing Lab: [address] [address] CHOLESTEROL 147 mg/dL TRIGLYCERIDE 96 mg/dL 0-150 LDL calculated 76 mg/dL 0-129 CHOL/HDL 2.8 HDL CHOLESTEROL 52 mg/dL 40-60 Jul 11, 2024 08:38 AM [place] BASIC METABOLIC PANEL (non-fasting) SERUM Specimen Type: SERUM No comment entered. Ordering Provider: ELISSA TRUJILLO Report Released Date/Time: Jul 11, 2024 08:32 AM Reporting Lab: [address] [address] Performing Lab: [address] [address] UREA NITROGEN 20 mg/dL 7-25 GLUCOSE 135 mg/dL H 65-100 SODIUM 138 mmol/L 135-145 POTASSIUM 3.8 mmol/L 3.5-5.0 CHLORIDE 100 mmol/L 100-110 CO2 28 meq/L 20-30 CREATININE, Serum 1.07 mg/dL 0.50-1.40 eGFR(CKD-EPI 2020) 71 mL/min >60 Jul 11, 2024 08:38 AM [place] LIVER FUNCTION SERUM Specimen Type: SERUM No comment entered. Ordering Provider: ELISSA TRUJILLO Report Released Date/Time: Jul 11, 2024 08:32 AM Reporting Lab: [address] [address] Performing Lab: [address] [address] PROTEIN,TOTAL 7.7 g/dL 6.0-8.3 ALBUMIN 3.5 g/dL [...] 2024 02:39 PM 97.6 87 124/[address] [facility] IE Social History: Smoking Status (Most current) and Tobacco Use (All prior to encounter date) This section includes the most current, and the historical, smoking and tobacco- related health factors from the [facility] where the Encounter took place. Current Smoking Status This section includes the most current smoking, or tobacco-related health factor, from the [place] facility where the Encounter took place. Date/Time Current Smoking Status Comment Facil ity Feb 14, 2023 01:30 PM [place]-TOBACCO NEVER USED [place] Tobacco Use History This section includes a history of the smoking, or tobacco-related health factors, that were collected on or before the date of the Encounter. The data comes from the [place] facility where the Encounter took place. Date/Time Smoking Status/Tobacco Use Comment F acility Jan 27, 2022 02:00 PM VA-TOBACCO NEVER USED [place] Nov 08, 2017 10:02 AM [place]-TOBACCO NEVER USED [place] Nov 08, 2017 08:55 AM LIFETIME NON-TOBACCO USER [place] Nov 08, 2016 09:08 AM LIFETIME NON-TOBACCO USER [place] October 21, 2015 02:24 PM LIFETIME NON-TOBACCO USER [place] Sep 10, 2012 09:28 AM LIFETIME NON-TOBACCO USER [place] Encounter Notes: All associated encounter notes This section contains the clinical notes associated to the Encounter. Date/Time Encounter Note(s) Provider Source Jul 17, 2024 03:32 PM URGENT CARE NOTE: LOCAL TITLE: INTERFACILITY TRANSFER FORM [id number] [facility] STANDARD TITLE: URGENT CARE NOTE [...] SECTION V - PATIENT/FAMILY CONSENT RECEIVED The [id number] consent form MUST BE COMPLETED in IMED for ALL TRANSFERS including patients transferred under emergemcy/ implied consent. Consent for transfer obtained: YES Patient Consent obtained from: Patient SECTION - DECISION Transfer via community EMS Name of accepting LIP (/) or Point of Contact: ED MD Facility patient is being transferred to: Other: [facility] Date and time transfer is to occur: Jun@15:10 Unit patient to be transferred to: [facility] ED Contact phone number for accepting LIP (/) or POC: [phone] SECTION VII - Information to be sent with patient: Transfer note (Interfacility transfer note(s) [id number] Provider and Nurse) Medication lists including an active patient medication list and any medications given to the patient prior to transfer Copy of patient's (or legally responsible person acting on the patient's behalf) informed consent to transfer with VA Form [id number] Documentation of the patient's advance directive made [...] 2024@14:27 ENTRY DATE: JUL 17, 2024@14:27:28 AUTHOR: ELISSA TRUJILLO COSIGNER: URGENCY: STATUS: COMPLETED PRIMARY CARE VISIT REUBEN AMOS, is a 78 yo WHITE MALE [place] who presents at the [place] Clinic. TYPE OF VISIT: Face to face [...] HEALTHCARE PROVIDERS: Community PCP: Dr. Gray Derm: [facility] Wound: [facility] Podiatry: [place] Dr. Osman. Social Hx: He is and lives with his . He has never smoked. He drinks alcohol rarely. No MJ or illicits. 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 He previously exercised thrice weekly but this has decreased considerably due to pain in his right hip. He does continue chair exercises as tolerated. Family history is notable for mother, brother, and maternal nephew with diabetes. HEALTHCARE PROVIDERS: Community PCP: Dr. Gray Derm: [facility] Wound: [facility] Podiatry: [place] Dr. Osman. Social Hx: He is and lives with his . He has never smoked. He drinks alcohol rarely. No MJ or illicits. 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 He previously exercised thrice weekly but this has decreased considerably due to pain in his right hip. He does continue chair exercises as tolerated. Family history is notable for mother, brother, and maternal nephew with diabetes. HISTORY: PERIOD OF SERVICE - [employer] FROM JUL 1965 TO JUN 1969 COMBAT SERVICE INDICATED: No MEDICAL HISTORY Active Problem Hyperlipidemia ([facility] [id number]) E78.5 08/15/2023 KEO ANAYA Psoriasis L40.9 08/15/2023 [...] Diabetes mellitus (SNOMED CT 7 11/08/2017 GLORY SANTAMRAIA HTN - Hypertension ([place] [address] 01/27/2022 VANESSA ELLIS Postsurgical Status of Cataract [...] No head strike. EXAMINATION General: Older, ill-appearing [place] in a wheelchair. Mental Status: Alert and [...] which the patient consented. I telephoned the [facility] emergency department and provided background information and purpose of transport. The nurse telephoned the veterans and informed her of these recent events. FOLLOW UP: RTC Below & sooner PRN UPCOMING APPOINTMENTS: 07/17/2024 14:30 SPR PACT 1 GROOVER AND TURNER 55 minutes spent in patient evaluation, data [...]
--- OUTSIDE RECORDS SUMMARY | 2024-09-11 12:54 | XMS_ITS | Encounter Summary ---
Author Organization [facility] Address [address] [place] [address] Care Team Providers Care Data Solutions Architect Name Role Phone Jagjit Hancock Primary Care Provider Gigi price Encounter Details Date Type Department Care Team (Latest Contact Info) Description 08/02/2024 Lab Requisition [facility] - Main Lab [address] [place] [phone] Rebecca Gomez MD [address] [place] [phone] Essential (primary) hypertension; Anemia, unspecified; Cellulitis, unspecified; [...] Comprehensive metabolic panel (08/04/2024 8:03 AM EDT) Sodium 133 133 - 145 mmol/L LAB CHEMISTRY METHOD 08/04/2024 12:15 PM [facility] Potassium 3.7 3.5 - 5.5 mmol/L LAB CHEMISTRY METHOD 08/04/2024 12:15 PM [facility] Chloride 97 96 - 110 mmol/L LAB CHEMISTRY METHOD 08/04/2024 12:15 PM [facility] CO2 24 21 - 32 mmol/L LAB CHEMISTRY METHOD 08/04/2024 12:15 PM [facility] Anion Gap 12(H) 3 - 11 LAB CHEMISTRY METHOD 08/04/2024 12:15 PM [facility] Glucose 93 70 - 100 mg/dL LAB CHEMISTRY METHOD 08/04/2024 12:15 PM [facility] BUN 36(H) 5 - 25 mg/dL LAB CHEMISTRY METHOD 08/04/2024 12:15 PM [facility] Creatinine 1.11 0.70 - 1.30 mg/dL LAB CHEMISTRY METHOD 08/04/2024 12:15 PM [facility] eGFR 68 >=60 mL/min/1. 73m2 LAB CHEMISTRY METHOD 08/04/2024 12:15 PM [facility] Comment:Calculation based on the??Chronic Kidney Disease Epidemiology Collaboration (CKD-EPI) equation refit??without adjustment for race. BUN/Creatinine Ratio 32.4 LAB CHEMISTRY METHOD 08/04/2024 12:15 PM [facility] Calcium 9.6 8.5 - 10.5 mg/dL LAB CHEMISTRY METHOD 08/04/2024 12:15 PM [facility] AST (SGOT) 18 10 - 42 unit/L LAB CHEMISTRY METHOD 08/04/2024 12:15 PM [facility] ALT (SGPT) 19 10 - 60 unit/L LAB CHEMISTRY METHOD 08/04/2024 12:15 PM EDT [facility] Alkaline Phosphatase 83 42 - 121 unit/L LAB CHEMISTRY METHOD 08/04/2024 12:15 PM EDT [facility] Total Protein 6.9 6.0 - 8.0 g/dL LAB CHEMISTRY METHOD 08/04/2024 12:15 PM EDT [facility] Albumin 3.3 3.2 - 5.0 g/dL LAB CHEMISTRY METHOD 08/04/2024 12:15 PM EDT [facility] Total Bilirubin 0.5 0.0 - 1.4 mg/dL LAB CHEMISTRY METHOD 08/04/2024 12:15 PM EDT [facility] Blood Venous blood specimen / Unknown Venipuncture / Unknown 08/04/2024 8:03 AM EDT 08/04/2024 10:52 AM EDT Rebecca Gomez MD LAB BLOOD ORDERABLES Final Resul t [facility] [address] [place] [address], * (ABNORMAL) Complete blood count (08/04/2024 8:03 AM EDT) WBC 6.9 4.8 - 10.8 K/mcL LAB HEMETOLOGY METHOD 08/04/2024 11:38 AM EDT [facility] RBC 4.60 4.50 - 5.50 M/mcL LAB HEMETOLOGY METHOD 08/04/2024 11:38 AM EDT [facility] Hemoglobin 12.8(L) 13.5 - 17.5 g/dL LAB HEMETOLOGY METHOD 08/04/2024 11:38 AM EDT [facility] Hematocrit 39.0(L) 42.0 - 54.0 % LAB HEMETOLOGY METHOD 08/04/2024 11:38 AM EDT [facility] MCV 85.2 79.0 - 98.0 FL LAB HEMETOLOGY METHOD 08/04/2024 11:38 AM EDT [facility] MCH 27.9 27.0 - 32.0 pcg LAB HEMETOLOGY METHOD 08/04/2024 11:38 AM EDT [facility] MCHC 32.8 32.0 - 37.0 g/dL LAB HEMETOLOGY METHOD 08/04/2024 11:38 AM EDT [facility] RDW 13.9 11.0 - 15.0 % LAB HEMETOLOGY METHOD 08/04/2024 11:38 AM EDT [facility] Platelets 281 130 - 400 K/mcL LAB HEMETOLOGY METHOD 08/04/2024 11:38 AM EDT [facility] MPV 9.3 7.0 - 11.0 FL LAB HEMETOLOGY METHOD 08/04/2024 11:38 AM EDT [facility] NRBC 0.0 <1.0 % LAB HEMETOLOGY METHOD 08/04/2024 11:38 AM EDT [facility] NRBC Absolute 0.00 <0.10 K/mcL LAB HEMETOLOGY METHOD 08/04/2024 11:38 AM EDT [facility] Blood Venous blood specimen / Unknown Venipuncture / Unknown 08/04/2024 8:03 AM EDT 08/04/2024 10:52 AM EDT us Rebecca Gomez MD LAB BLOOD ORDERABLES Final Resul t [facility] [address] [place] [address], documented in this encounter Visit Diagnoses Diagnosis [...] documented as of this encounter Care Teams Data Solutions Architect Relationship Specialty Start Date End Date Jagjit Hancock PA [address] [place] [address] [place] [phone] PCP - General Physician Telecom Sales Consultant 07/23/24 documented as of this encounter
--- OUTSIDE RECORDS SUMMARY | 2024-09-11 12:55 | XMS_ITS ---
Author Organization [facility] Address [address] [place] [address] Care Team Providers Care Baseball Club Manager Name Role Phone Marina MCDANIELS, Nubia Zelaya Primary Care Provider Un available Sebastián Sussy Unavailable [phone] Encounters Encounter Location Date Provider Diagnosis [address] [address] 09/04/2024 Sussy Lowery Plan Of Treatment Next Appt Details Provider Name:Sussy Patterson Sebastián , 12/11/2024 03:00:00 PM, [address] [place], [address], Progress Notes * Tobin BEYDOB:1945 ( 79 yo M)Acc No.[id number]:09/04/2024 Progress Note Patient:?Tobin BEY Provider:?Sussy Lowery DPM :1945???Age:79 Y???Sex:Male Romeo e:09/04/2024 Address:[address] [id number] Pcp:Jayjay Graham Subjective: * Chief Complaints: * ??? * Medical History:? Objective: * Vitals:? Assessment: Plan: * Treatment: * Images: * The named appointment provid er may or may not be the originator of this progress note, and it is not deemed complete until electronically signed by the appointment provider. Sign off status: Pending * Provider:Hanna Lowery DPM Date:?2024 Generated for Tu schrader/Yang/Jean on:?09/11/2024 12:54 PM EDT
--- OUTSIDE RECORDS SUMMARY | 2024-09-11 12:55 | XMS_ITS | Encounter Summary ---
Author Name [facility] [place] Organization [facility] [place] Address [address] [place] [address] Care Team Providers Care Kiln Head House Operator Name Role Phone ELISSA TRUJILLO Primary [facility] Insurance Providers: All historical and [...] MEDICARE SUPPLEMEN MARIEL Apr 27, 2012 PLAN [id number] [phone] [place] PATIENT AAR MED [facility] MEDICARE SUPPLEMEN MARIEL Apr 27, 2012 [facility] [id number] [place] PATIENT MEDICARE (WNR) MEDICARE (M) PART A 2011 PART A [id number] [place]IENT [place]IC[place] (WNR) MEDICARE (M) PART B 2011 PART B [id number] [place] Selected Encounter This section includes the information on record at [place] for the Encounter. Date/Time Encounter Type Encounter Description Reason Provider Source Mar 06, 2024 03:00 PM OFFICE O/P EST HI 40 MIN PRIMARY CARE/MEDICINE ICD-10-CM E11.9 Type 2 diabetes mellitus without complications ELISSA TRUJILLO [place] Encounter Template Text not used by VA Assessments - Encounter Diagnoses This section includes the primary and secondary diagnoses documented for the Encounter. Date/Time Primary/Secondary Diagnosis Diagnosis Name Provider Source Mar 31, 2024 02:14 PM PRIMARY Type 2 diabetes mellitus without complications TRUJILLO,GIANFRANCO [place] Mar 31, 2024 02:14 PM SECONDARY Essential (primary) hypertension TRUJILLO,ELISSA Patterson [place] Mar 31, 2024 02:14 PM SECONDARY Hyperlipidemia, unspecified TRUJILLOELISSA Patterson [place] Mar 31, 2024 02:14 PM SECONDARY Iron deficiency anemia, unspecified TRUJILLO,ELISSA Patterson [place] Mar 31, 2024 02:14 PM SECONDARY Pain in right hip ELISSA TRUJILLO [place] Mar 31, 2024 02:14 PM SECONDARY Pressure ulcer of unspecified buttock, unspecified stage RONNIEELISSA Patterson [place] Mar 31, 2024 02:14 PM SECONDARY Psoriasis, unspecified ELISSA TRUJILLO Plan of Treatment: Future Appointments (+ 6 months) and Future Tests (+/- 45 days) The Plan of Treatment section includes future care activities for the patient from all [place] treatmentfacilities. This section includes future appointments and future orders which are active, pending or scheduled. Future Appointments This section includes appointments that were scheduled to occur 6 months from the date of the Encounter, up to a maximum of 20 appointments. The data comes from all [place] treatment facilities. Appointment Date/Time Appointment Type Appointme nt Facility Name Jul 17, 2024 02:30 PM [facility] Unit Interpretation Reference Range Specimen Type Comment Feb 29, 2024 11:58 AM [place] HEMOGLOBIN A1C PANEL BLOOD Specimen T ype: BLOOD Comment: Values obtained from A1C measurements can vary. For atypical A1C assays, a reported value of 7.0 could actually be between 6.72 and 7.28 if measured by a reference method. A reported value of 9.0 could actually be between 8.73 and 9.27. Ref: http://www.ngsp .org/CAPdata.as p Ordering Provider: KEO ANAYA Report Released Date/Time: Aug 15, 2023 02:27 PM Reporting Lab: [address] [address] Performing Lab: [address] [address] HEMOGLOBIN A1C 5.9 H 4.0-5.6 Feb 29, 2024 11:58 AM [place] MICROALBUMIN CREATININE RATIO PANEL URINE Specimen Type: URINE No comment entered. Ordering Provider: KEO ANAYA Report Released Date/Time: Aug 15, 2023 02:27 PM Reporting Lab: [address] [address] Performing Lab: [address] [address] MICROALBUMIN/CREATININE RATIO 10.2 mg/g 0-29.9 MICROALBUMIN,QUANTITATIVE 1.7 mg/dL RR U NAVAIL CREATININE URINE 166.35 mg/dL Vital Signs: All taken on the encounter date This section contains inpatient and outpatient Vital Signs collected on the date of the Encounter. Date/Time Temperature Pulse Blood Pressure Respiratory Rate SP02 Pain Height Weight Body Mass Index Source Mar 06, 2024 03:09 PM 97.6 66 128/74 98 212 28 [place] Social History: Smoking Status (Most current) [...] Padmini willingham Feb 14, 2023 01:30 PM [place]-TOBACCO NEVER USED [place] Tobacco Use History This section includes a history of the smoking, or tobacco-related health factors, that were collected on or before the date of the Encounter. The data comes from the [place] facility where the Encounter took place. Date/Time Smoking Status/Tobacco Use Comment Mary agudelo Jan 27, 2022 02:00 PM VA-TOBACCO NEVER USED [place] Nov 08, 2017 10:02 AM VA-TOBACCO NEVER USED [place] Nov 08, 2017 08:55 [...] URGENCY: STATUS: COMPLETED PRIMARY CARE VISIT REUBEN PRAKASHCELESTINA, is a 78 yo WHITE MALE [place] who [place] the [place] Clinic. TYPE [...] continued to follow with wound care at [facility]. He had a right total hip replacement scheduled in July that was postponed due to the pressure wounds. It has been rescheduled to early 2024 contingent on status of his pressure ulcers. No recent illnesses or ED UC visits. No falls. Recent labs were reviewed with the [place]. All medications were reconciled during this visit. HEALTHCARE PROVIDERS: Community PCP: Dr. Gray Derm: [place] [facility] Wound: [facility] Podiatry: [facility] Dr[facility] Osman. Social Hx: He is and lives with his . He has never smoked. He drinks alcohol rarely. No MJ or illicits. 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 He previously exercised thrice weekly but this has decreased considerably due to pain in his right hip. He does continue chair exercises as tolerated. Family history is notable for mother, brother, and maternal nephew with diabetes. HISTORY: PERIOD OF SERVICE - [employer] FROM JUL 1965 TO JUN 1969 COMBAT SERVICE INDICATED: No MEDICAL HISTORY Active Problem Hyperlipidemia ([facility] 34081238) E78.5 08/15/2023 KEO ANAYA Psoriasis L40.9 08/15/2023 [...] GLORY SANTAMARIA HTN - Hypertension ([place] [address] 01/27/2022 VANESSA ELLIS Postsurgical Status of Cataract [...] extremities, or unilateral weakness. EXAMINATION General: Older [place] in no obvious distress. Mental Status: Alert [...] is the source for the following: Hyperlipidemia ([facility] 49532210): Lipid panel WNL as are LFTs. Continue rosuvastatin. Psoriasis: Follows with [place] [facility]. Maintained on tacrolimus ointment. Pressure injury of buttock: As noted, he is followed closely by [facility] wound clinic. Wounds without evidence of infection. Continue tacrolimus. Pain in right hip joint: Planned right THR early next year. Surgery is contingent on more healing of buttock wounds. Iron deficiency anemia: H/H largely normal in July. Recheck prior to next visit. Of note, he is not maintained on an iron supplement at this time. DM - Diabetes mellitus (SNOMED CT 03905449): Stable with HbA1c 5.9%. Follows a diabetic diet closely. Continue metformin 1000 mg twice daily and semaglutide. HTN - Hypertension (SNOMED CT 39581207): Blood pressure within target today at 128/74. He is maintained on several agents including metoprolol tartrate, losartan, HCTZ, and spironolactone. FOLLOW UP: RTC Below & sooner PRN UPCOMING APPOINTMENTS: 07/17/2024 14:30 CWM/SO/PACT 1 ELECTRONIC INTELLIGENCE OFFICER 40 minutes spent in patient evaluation, data [...] this VA (local) and dispensed from another [place] or [place] facility (remote) as well as [...] with a VA or non-VA provider. /es/ ELISSA TRUJILLO NP NURSE PRACTITIONER Signed: 03/23/2024 11:25 ELISSA TRUJILLO
--- OUTSIDE RECORDS SUMMARY | 2024-09-11 12:55 | XMS_ITS | Clinical Summary ---
Author Organization [address] Address [address] [place] [phone] Phone Care Team Providers Care Lean Manager Name Role Phone Jagjit Hancock Primary Care Provider Gigi price Encounters Date Type Department Care Team Description 08/16/2024 Lab Requisition [facility] Lab [address] [place] [phone] Rebecca Gomez MD Essential (primary) hypertension; Anemia, unspecified; Cellulitis, unspecified; Type 2 diabetes mellitus without complications (CMS/HCC V24, CMS/[facility] V28) 08/08/2024 Lab Requisition [facility] Lab [address] [place] [phone] Rebecca Gomez MD Essential (primary) hypertension; Anemia, unspecified; Cellulitis, unspecified; Type 2 diabetes mellitus without complications (CMS/HCC V24, CMS/[facility] V28) 08/03/2024 Lab Requisition [facility] Main Lab [address] [place] [phone] Mary Cotter PA Diarrhea, unspecified 08/02/2024 Lab Requisition [facility] Lab [address] [place] [phone] Rebecca Gomez MD Essential (primary) hypertension; Anemia, unspecified; Cellulitis, unspecified; Type 2 diabetes mellitus without complications (CMS/[facility] V24, CMS/[facility] V28) 07/26/2024 Lab Requisition [facility] Lab [address] [place] [address] Rebecca Gomez MD Essential (primary) hypertension; Anemia, unspecified; Cellulitis, unspecified; Type 2 diabetes mellitus without complications ([facility] V24, [facility] V28) 07/23/2024 Lab Requisition [facility] - Main Lab [address] [facility] [place] [address] Jagjit Hancock PA Hyperlipidemia, unspecified; Essential (primary) hypertension; Anemia, unspecified; Type 2 diabetes mellitus without complications ([facility] V24, [facility] V28); Vitamin D deficiency, unspecified; Cellulitis, unspecified from [...] age to complete this topic Meningococcal B Vaccine Aged Out No l onger eligible based on patient's age to complete [...] of5 resultswithin the time period is included. [facility] WBC 7.0 4.8 - 10.8 K/mcL LAB HEMETOLOGY METHOD [facility] RBC 4.90 4.50 - 5.50 M/mcL LAB HEMETOLOGY METHOD 08/18[facility]2024 11[facility] Hemoglobin 14.1 13.5 - 17.5 g/dL LAB HEMETOLOGY METHOD 08/18/2024 11:59 AM [facility] Hematocrit 41.1(L) 42.0 - 54.0 % LAB HEMETOLOGY METHOD 08/18/2024 11:59 AM [facility] MCV 83.4 79.0 - 98.0 FL LAB HEMETOLOGY METHOD 08/18/2024 11:59 AM EDT [facility] MCH 28.6 27.0 - 32.0 pcg LAB HEMETOLOGY METHOD 08/18/2024 11:59 AM EDT [facility] MCHC 34.3 32.0 - 37.0 g/dL LAB HEMETOLOGY METHOD 08/18/2024 11:59 AM EDT [facility] RDW 14.2 11.0 - 15.0 % LAB HEMETOLOGY METHOD 08/18/2024 11:59 AM EDT [facility] Platelets 266 130 - 400 K/mcL LAB HEMETOLOGY METHOD 08/18/2024 11:59 AM EDT [facility] MPV 8.9 7.0 - 11.0 FL LAB HEMETOLOGY METHOD 08/18/2024 11:59 AM EDT [facility] NRBC 0.0 <1.0 % LAB HEMETOLOGY METHOD 08/18/2024 11:59 AM EDT [facility] NRBC Absolute 0.00 <0.10 K/mcL LAB HEMETOLOGY METHOD 08/18/2024 11:59 AM EDT [facility] Blood Venous blood specimen / Unknown Venipuncture / Unknown 08/18/2024 7:18 AM EDT 08/18/2024 11:03 AM EDT us Rebecca Gomez MD LAB BLOOD ORDERABLES Final Resul t [facility] [address] [place] [address], * (ABNORMAL) Comprehensive metabolic panel (08/18/2024 7:18 AM EDT) Only the most recent of5 resultswithin the time period is included. [facility] Signature Sodium 132(L) 133 - 145 mmol/L LAB CHEMISTRY METHOD 08/18/2024 12:46 PM [facility] Potassium 4.4 3.5 - 5.5 mmol/L LAB CHEMISTRY METHOD 08/18/2024 12:46 PM [facility] Chloride 95(L) 96 - 110 mmol/L LAB CHEMISTRY METHOD 08/18/2024 12:46 PM [facility] CO2 27 21 - 32 mmol/L LAB CHEMISTRY METHOD 08/18/2024 12:46 PM [facility] Anion Gap 10 3 - 11 LAB CHEMISTRY METHOD 08/18/2024 12:46 PM [facility] Glucose 88 70 - 100 mg/dL LAB CHEMISTRY METHOD 08/18/2024 12:46 PM [facility] BUN 34(H) 5 - 25 mg/dL LAB CHEMISTRY METHOD 08/18/2024 12:46 PM [facility] Creatinine 1.19 0.70 - 1.30 mg/dL LAB CHEMISTRY METHOD 08/18/2024 12:46 PM [facility] eGFR 63 >=60 mL/min/1. 73m2 LAB CHEMISTRY METHOD 08/18/2024 12:46 PM [facility] Comment:Calculation based on the??Chronic Kidney Disease Epidemiology Collaboration (CKD-EPI) equation refit??without adjustment for race. BUN/Creatinine Ratio 28.6 LAB CHEMISTRY METHOD 08/18/2024 12:46 PM [facility] Calcium 9.7 8.5 - 10.5 mg/dL LAB CHEMISTRY METHOD 08/18/2024 12:46 PM [facility] AST (SGOT) 30 10 - 42 unit/L LAB CHEMISTRY METHOD 08/18/2024 12:46 PM [facility] ALT (SGPT) 34 10 - 60 unit/L LAB CHEMISTRY METHOD 08/18/2024 12:46 PM [facility] Alkaline Phosphatase 93 42 - 121 unit/L LAB CHEMISTRY METHOD 08/18/2024 12:46 PM EDT [facility] Total Protein 7.2 6.0 - 8.0 g/dL LAB CHEMISTRY METHOD 08/18/2024 12:46 PM EDT [facility] Albumin 3.4 3.2 - 5.0 g/dL LAB CHEMISTRY METHOD 08/18/2024 12:46 PM EDT [facility] Total Bilirubin 0.6 0.0 - 1.4 mg/dL LAB CHEMISTRY METHOD 08/18/2024 12:46 PM EDT [facility] Blood Venous blood specimen / Unknown Venipuncture / Unknown 08/18/2024 7:18 AM EDT 08/18/2024 11:03 AM EDT Rebecca Gomez MD LAB BLOOD ORDERABLES Final Resul t [facility] [address] [place] [address], [place] [phone] * (ABNORMAL) Clostridium difficile molecular study (08/02/2024 7:40 PM EST) Pathologist [facility] Clostridium difficile PCR Positive (AA) Negative LAB MICROBIOLOGY METHOD 08/03/2024 12:41 PM EDT [facility] Comment: CRITICAL RESULT POSITIVE FOR TOXIN PRODUCING CLOSTRIDIOIDES DIFFICILE, NO ADDITIONAL TESTING IS NECESSARY. REPEAT SAMPLES SHOULD NOT BE SUBMITTED FOR TEST OF CURE. Stool Rectum structure / Unknown Non-blood Collection / Unknown 08/02/2024 7:40 PM EST 08/03/2024 11:45 AM EDT us Mary JOHNSON LAB MICROBIOLOGY - GENERAL ORD ERABLES Final Result [facility] [address] [place] [address], [place] [phone] * Clostridium difficile toxin (08/02/2024 7:40 PM EST) C difficile Toxins A+B, EIA 08/03/2024 11:45 AM EDT [facility] Comment:Refer to C. difficil e PCR assay for results. Stool Rectum structure / Unknown Non-blood Collection / Unknown 08/02/2024 7:40 PM EST 08/03/2024 10:19 AM EDT Mary JOHNSON LAB MICROBIOLOGY - GENERAL ORD ERABLES Final Result [facility] [address] [place] [address], [place] [phone] * Lipid panel with reflex to direct LDL (07/23/2024 8:56 AM EST) Cholesterol 117 0 - 200 mg/dL LAB CHEMISTRY METHOD 07/23/2024 1:[address] [facility] Triglycerides 136 0 - 150 mg/dL LAB CHEMISTRY METHOD 07/23/2024 1:[address] [facility] HDL 53 >=40 mg/dL LAB CHEMISTRY METHOD 07/23/2024 1:[address] [facility] LDL Calculated 37 0 - 100 mg/dL LAB CHEMISTRY METHOD 07/23/2024 1:[address] [facility] VLDL Cholesterol Quique 27.2 mg/dL LAB CHEMISTRY METHOD 07/23/2024 1:[address] [facility] Non HDL Chol. (LDL+VLDL) 64 <145 mg/dL LAB CHEMISTRY METHOD 07/23/2024 1:[address] [facility] Chol/HDL Ratio 2.2 0.0 - 4.4 LAB CHEMISTRY METHOD 07/23/2024 1:[address] [facility] Blood Venous blood specimen / Unknown Venipuncture / Unknown 07/23/2024 8:56 AM EST 07/23/2024 10:27 AM EST Jagjit JOHNSON LAB BLOOD ORDERABLES Final Re sult Performing Organization Address City/[facility]/ZIP Co de Phone Number [facility] [address] [place] [address], [place] [phone] * Vitamin D 25 hydroxy (07/23/2024 8:56 AM EST) Vit D, 25-Hydroxy 41.0 30.0 - 80.0 ng/mL LAB CHEMISTRY METHOD 07/23/2024 1:34 PM EST [facility] Blood Venous blood specimen / Unknown Venipuncture / Unknown 07/23/2024 8:56 AM EST 07/23/2024 10:27 AM EST Jagjit JOHNSON LAB BLOOD ORDERABLES Final Re sult Performing Organization Address [facility]/ZIP Co de Phone Number [facility] [address] [place] [address], [place] [phone] * (ABNORMAL) Thyroid stimulating hormone (07/23/2024 8:56 AM EST) Pathologist [facility] TSH 4.10(H) 0.40 - 4.00 mcIU/mL LAB CHEMISTRY METHOD 07/23/2024 1:35 PM EST [facility] Blood Venous blood specimen / Unknown Venipuncture / Unknown 07/23/2024 8:56 AM EST 07/23/2024 10:27 AM EST Jagjit JOHNSON LAB BLOOD ORDERABLES Final Re sult [facility] [address] [place] [address], [place] [phone] * (ABNORMAL) Hemoglobin A1c (07/23/2024 8:56 AM EST) Hemoglobin A1C 6.6(H) <6.5 % LAB CHEMISTRY METHOD 07/23/2024 9:50 PM EST [facility] Mean Bld Glu Estim. 143 mg/dL LAB CHEMISTRY METHOD 07/23/2024 9:50 PM EST [facility] Blood Venous blood specimen / Unknown Venipuncture / Unknown 07/23/2024 8:56 AM EST 07/23/2024 10:27 AM EST Jagjit JOHNSON LAB BLOOD ORDERABLES Final Re sult Performing Organization Address City/[facility]/ZIP Co de Phone Number [facility] [address] [place] [address], [place] [phone] * (ABNORMAL) Folate (07/23/2024 8:56 AM EST) Folate 17.7(H) 2.8 - 17.0 ng/ml LAB CHEMISTRY METHOD 07/23/2024 1:58 PM EST [facility] Blood Venous blood specimen / Unknown Venipuncture / Unknown 07/23/2024 8:56 AM EST 07/23/2024 10:27 AM EST Jagjit JOHNSON LAB BLOOD ORDERABLES Final Re sult Performing Organization Address [facility]/ZIP Co de Phone Number [facility] [address] [place] [address], [place] [phone] * Vitamin B12 (07/23/2024 8:56 AM EST) Vitamin B-12 761 250 - 900 pcg/mL LAB CHEMISTRY METHOD 07/23/2024 1:58 PM EST [facility] Blood Venous blood specimen / Unknown Venipuncture / Unknown 07/23/2024 8:56 AM EST 07/23/2024 10:27 AM EST Jagjit JOHNSON LAB BLOOD ORDERABLES Final Re sult [facility] [address] [place] [address], [place] [phone] from Last 3 Months Insurance MEDICARE [facility] Care Teams Lean Manager Relationship Specialty Start Date End Date Jagjit Hancock PA [address] [place] [phone] PCP - General Physician Proofer Black And White 07/23/24
--- OUTSIDE RECORDS SUMMARY | 2024-09-11 12:55 | XMS_ITS ---
Author Organization [facility] Address [address] [facility] [place] [address] Care Team Providers Care Pipe Coverer And Insulator Name Role Phone Marina MCDANIELS, Nubia Zelaya Primary Care Provider Un available Black, Sussy Unavailable [phone] Medications Medication SIG (Take, Route, Frequency, Duration) [...] 12 hrs for 10 day(s) 12/22/2019 Not-Taking Cipro 500 MG 1 tablet Orally ever y 12 hrs for 10 day(s) 01/19/2020 Not-Taking Bactrim DS 800-160 MG 1 tablet Orally Tw ice a day for 10 day(s) 12/18/2019 Not-Taking sAXagliptin HCl Not- Taking Bactrim DS 800-160 MG 1 tablet Orally Tw ice a day for 10 day(s) 03/19/2020 Not-Taking traMADol HCl Not-Erick ing Alogliptin Benzoate 25 MG Orally Not-Taking Trulicity 0.75 MG/0.5ML as directed Subcutaneous Not-Taking Ciclopirox Olamine 0.77 % 1 application Externally Twice a day for 30 days 09/18/2019 Not-Taking Mupirocin 2 % [...] a day for 30 days 08/25/2021 Not-Taking Spironolactone Activ e [...] Active Encounters Encounter Location Date Provider Diagnosis [facility] [address] [address] 09/01/2024 Sussy Lowery Plan Of Treatment Next Appt Details Provider Name:Sussy Lowery , 12/11/2024 03:00:00 PM, [address] [place] [address], [phone], Progress Notes * Tobin BEYDOB:1945 ( 79 yo M)Acc No.[id number]:09/01/2024 Progress Note Patient:?Tobin BEY Provider:?Sussy Lowery DPM :1945???Age:79 Y???Sex:Male Romeo e:09/01/2024 Address:[address] [place] [address] [facility] Pcp:Jayjay Graham Subjective: * Chief Complaints: * ??? * Medical History:?Reflux, Mum ps, Measles, Chicken pox, Hypertension, Diabetes mellitus, Macular degeneration. * Medications:?Taking Tacrolim us 0.1 % Ointment 1 application Externally Once [...] (M20.41,M20.42), Preulcerative Skin Lesion(s) (L85.1 Objective: * Vitals:? Assessment: Plan: * Treatment: * Images: * The named appointment provid er may or may not be the originator of this progress note, and it is not deemed complete until electronically signed by the appointment provider. Sign off status: Pending * Provider:?Sussy Lowery DPM Date:?2024 Generated for Tu schrader/Yang/Jean on:?09/11/2024 12:55 PM EDT
--- OUTSIDE RECORDS SUMMARY | 2024-09-11 12:55 | XMS_ITS | Encounter Summary ---
Author Organization [facility] Address [address] [place] [address] Care Team Providers Care Passenger Service Manager Name Role Phone Jagjit Hancock Primary Care Provider Gigi price Encounter Details Date Type Department Care Team (Latest Contact Info) Description 07/26/[address] [facility] - Main Lab [address] [place] [phone] Rebecca Gomez MD [address] [place] [phone] Essential (primary) hypertension; Anemia, unspecified; Cellulitis, unspecified; [...] mmol/L LAB CHEMISTRY METHOD 07/28/2024 1:[address] [facility] Potassium 4.3 3.5 - 5.5 mmol/L LAB CHEMISTRY METHOD 07/28/2024 1:[address] [facility] Chloride 100 96 - 110 mmol/L LAB CHEMISTRY METHOD 07/28/2024 1:[address] [facility] CO2 24 21 - 32 mmol/L LAB CHEMISTRY METHOD 07/28/2024 1:[address] [facility] Anion Gap 12(H) 3 - 11 LAB CHEMISTRY METHOD 07/28/2024 1:[address] [facility] Glucose 103(H) 70 - 100 mg/dL LAB CHEMISTRY METHOD 07/28/2024 1:[address] [facility] BUN 28(H) 5 - 25 mg/dL LAB CHEMISTRY METHOD 07/28/2024 1:[address] [facility] Creatinine 1.06 0.70 - 1.30 mg/dL LAB CHEMISTRY METHOD 07/28/2024 1:[address] [facility] eGFR 72 >=60 mL/min/1. 73m2 LAB CHEMISTRY METHOD 07/28/2024 1:[address] [facility] Comment:Calculation based on the??Chronic Kidney Disease Epidemiology Collaboration (CKD-EPI) equation refit??without adjustment for race. BUN/Creatinine Ratio 26.4 LAB CHEMISTRY METHOD 07/28/2024 1:[address] [facility] Calcium 9.1 8.5 - 10.5 mg/dL LAB CHEMISTRY METHOD 07/28/2024 1:[address] [facility] AST (SGOT) 19 10 - 42 unit/L LAB CHEMISTRY METHOD 07/28/2024 1:[address] [facility] ALT (SGPT) 18 10 - 60 unit/L LAB CHEMISTRY METHOD 07/28/2024 1:[address] [facility] Alkaline Phosphatase 88 42 - 121 unit/L LAB CHEMISTRY METHOD 07/28/2024 1:[address] [facility] Total Protein 6.7 6.0 - 8.0 g/dL LAB CHEMISTRY METHOD 07/28/2024 1:[address] [facility] Albumin 3.3 3.2 - 5.0 g/dL LAB CHEMISTRY METHOD 07/28/2024 1:[address] [facility] Total Bilirubin 0.5 0.0 - 1.4 mg/dL LAB CHEMISTRY METHOD 07/28/2024 1:[address] [facility] Blood Venous blood specimen / Unknown Venipuncture / Unknown 07/28/2024 7:32 AM EST 07/28/2024 11:16 AM EST Rebecca Gomez MD LAB BLOOD ORDERABLES Final Resul t [facility] [address] [place] [address], [place] [phone] * (ABNORMAL) Complete blood count (07/28/2024 7:32 AM EST) WBC 5.6 4.8 - 10.8 K/mcL LAB HEMETOLOGY METHOD 07/28/2024 1:[address] [facility] RBC 4.50 4.50 - 5.50 M/mcL LAB HEMETOLOGY METHOD 07/28/2024 1:[address] [facility] Hemoglobin 12.5(L) 13.5 - 17.5 g/dL LAB HEMETOLOGY METHOD 07/28/2024 1:[address] [facility] Hematocrit 38.5(L) 42.0 - 54.0 % LAB HEMETOLOGY METHOD 07/28/2024 1:[address] [facility] MCV 86.5 79.0 - 98.0 FL LAB HEMETOLOGY METHOD 07/28/2024 1:32 PM EST [facility] MCH 28.1 27.0 - 32.0 pcg LAB HEMETOLOGY METHOD 07/28/2024 1:32 PM EST [facility] MCHC 32.5 32.0 - 37.0 g/dL LAB HEMETOLOGY METHOD 07/28/2024 1:32 PM EST [facility] RDW 13.8 11.0 - 15.0 % LAB HEMETOLOGY METHOD 07/28/2024 1:32 PM EST [facility] Platelets 265 130 - 400 K/mcL LAB HEMETOLOGY METHOD 07/28/2024 1:32 PM EST [facility] MPV 9.7 7.0 - 11.0 FL LAB HEMETOLOGY METHOD 07/28/2024 1:32 PM EST [facility] NRBC 0.0 <1.0 % LAB HEMETOLOGY METHOD 07/28/2024 1:32 PM EST [facility] NRBC Absolute 0.00 <0.10 K/mcL LAB HEMETOLOGY METHOD 07/28/2024 1:[address] [facility] Blood Venous blood specimen / Unknown Venipuncture / Unknown 07/28/2024 7:32 AM EST 07/28/2024 11:16 AM EST Rebecca Gomez MD LAB BLOOD ORDERABLES Final Resul t [facility] [address] [place] [address], documented in this encounter Visit Diagnoses Diagnosis [...] documented as of this encounter Care Teams Passenger Service Manager Relationship Specialty Start Date End Date Jagjit Hancock PA [address] [place] [address] [place] [phone] PCP - General Physician Launchman 07/23/24 documented as of this encounter
--- OUTSIDE RECORDS SUMMARY | 2024-09-11 12:55 | XMS_ITS ---
Author Organization [facility] Address [address] [place] [address] Care Team Providers Care Chairman President And Chief Executive Officer Name Role Phone aMrina MCDANIELS, Nubia Zelaya Primary Care Provider Un available SebastiánUcheSussy Unavailable [phone] REASON FOR VISIT RX Medications Medication SIG (Take, Route, Frequency, Duration) Notes Start Date End Date Status Ciclopirox Olamine 0.77 % 1 application to affected area Externally Twice a day for 30 days 09/10/2024 Active Encounters Encounter Location Date Provider Diagnosis [facility] [address] [place] [address] 09/10/2024 Sussy Sebastián Plan Of Treatment Medication Medication Name Sig Start Date Stop Date Notes Ciclopirox Olamine 0.77 % 1 application to affected area Externally Twice a day for 30 days 09/10/2024 Next Appt Details Provider Name:Sussy Patterson Sebastián , 12/11/2024 03:00:00 PM, [address] [place], [address], Progress Notes * JULIO CNAGA TobinDOB:1945 ( 79 yo M)Acc No.[id number]:09/10/2024 Patient:Tobin LUIS :1945???Age:79 Y???Sex:Male Address: [place], [address] * Refills? Start Ciclopirox Olamine Cream, 0.77 %, Externally, 60, 1 application to affected area, Twice a day, 30 days, Refills=4 * true * Date:? Generated for Tu schrader/Yang/Jean on:?09/11/2024 12:55 PM EDT
--- OUTSIDE RECORDS SUMMARY | 2024-09-11 12:55 | XMS_ITS | Encounter Summary ---
Author Organization [facility] Address [address] [place] [address] Care Team Providers Care Survival Equipment Repairer Name Role Phone Jagjit Hancock Primary Care Provider Gigi price Encounter Details Date Type Department Care Team (Latest Contact Info) Description 07/23/2024 Lab Requisition [facility] - Main Lab [address] [facility] [place] [id number] Jagjit Hancock PA [address] [place] [phone] Hyperlipidemia, unspecified; Essential (primary) hypertension; Anemia, unspecified; Type 2 diabetes mellitus without complications (CMS/HCC V24, CMS/HCC V28); Vitamin D deficiency, unspecified; Cellulitis, unspecified Social [...] LAB CHEMISTRY METHOD 07/23/2024 1:35 PM EST [facility] Blood Venous blood specimen / Unknown Venipuncture / Unknown 07/23/2024 8:56 AM EST 07/23/2024 10:27 AM EST Jagjit JOHNSON LAB BLOOD ORDERABLES Final Re sult Performing Organization Address City/[facility]/ZIP Co de Phone Number [facility] [address] [place] [address], [place] [phone] * (ABNORMAL) Folate (07/23/2024 8:56 AM EST) Pathologist [facility] Folate 17.7(H) 2.8 - 17.0 ng/ml LAB CHEMISTRY METHOD 07/23/2024 1:58 PM EST [facility] Blood Venous blood specimen / Unknown Venipuncture / Unknown 07/23/2024 8:56 AM EST 07/23/2024 10:27 AM EST Jagjit JOHNSON LAB BLOOD ORDERABLES Final Re sult Performing Organization Address City/[facility]/ZIP Co de Phone Number [facility] [address] [place] [address], [place] [phone] * Vitamin B12 (07/23/2024 8:56 AM EST) Pathologist [facility] Vitamin B-12 761 250 - 900 pcg/mL LAB CHEMISTRY METHOD 07/23/2024 1:58 PM EST [facility] Blood Venous blood specimen / Unknown Venipuncture / Unknown 07/23/2024 8:56 AM EST 07/23/2024 10:27 AM EST Jagjit JOHNSON LAB BLOOD ORDERABLES Final Re sult Performing Organization Address City/[facility]/ZIP Co de Phone Number [facility] [address] [place] [address], [place] [phone] * Vitamin D 25 hydroxy (07/23/2024 8:56 AM EST) Vit D, 25-Hydroxy 41.0 30.0 - 80.0 ng/mL LAB CHEMISTRY METHOD 07/23/2024 1:34 PM EST [facility] Blood Venous blood specimen / Unknown Venipuncture / Unknown 07/23/2024 8:56 AM EST 07/23/2024 10:27 AM EST Jagjit JOHNSON LAB BLOOD ORDERABLES Final Re sult Performing Organization Address [facility]/ZIP Co de Phone Number [facility] [address] [place] [address], [place] [phone] * (ABNORMAL) Hemoglobin A1c (07/23/2024 8:56 AM EST) Hemoglobin A1C 6.6(H) <6.5 % LAB CHEMISTRY METHOD 07/23/2024 9:50 PM [facility] Mean Bld Glu Estim. 143 mg/dL LAB CHEMISTRY METHOD 07/23/2024 9:50 PM [facility] Blood Venous blood specimen / Unknown Venipuncture / Unknown 07/23/2024 8:56 AM EST 07/23/2024 10:27 AM EST Jagjit JOHNSON LAB BLOOD ORDERABLES Final Re sult Performing Organization Address [facility]/ZIP Co de Phone Number [facility] [address] [place] [address], [place] [phone] * Lipid panel with reflex to direct LDL (07/23/2024 8:56 AM EST) Cholesterol 117 0 - 200 mg/dL LAB CHEMISTRY METHOD 07/23/2024 1:58 PM [facility] Triglycerides 136 0 - 150 mg/dL LAB CHEMISTRY METHOD 07/23/2024 1:58 PM [facility] HDL 53 >=40 mg/dL LAB CHEMISTRY METHOD 07/23/2024 1:58 PM [facility] LDL Calculated 37 0 - 100 mg/dL LAB CHEMISTRY METHOD 07/23/2024 1:58 PM [facility] VLDL Cholesterol Quique 27.2 mg/dL LAB CHEMISTRY METHOD 07/23/2024 1:58 PM [facility] Non HDL Chol. (LDL+VLDL) 64 <145 mg/dL LAB CHEMISTRY METHOD 07/23/2024 1:58 PM [facility] Chol/HDL Ratio 2.2 0.0 - 4.4 LAB CHEMISTRY METHOD 07/23/2024 1:58 PM [facility] Blood Venous blood specimen / Unknown Venipuncture / Unknown 07/23/2024 8:56 AM EST 07/23/2024 10:27 AM EST us Jagjit JOHNSON LAB BLOOD ORDERABLES Final Re sult [facility] [address] [place] [address], * (ABNORMAL) Comprehensive metabolic panel (07/23/2024 8:56 AM EST) Sodium 137 133 - 145 mmol/L LAB CHEMISTRY METHOD 07/23/2024 1:58 PM [facility] Potassium 4.1 3.5 - 5.5 mmol/L LAB CHEMISTRY METHOD 07/23/2024 1:58 PM [facility] Chloride 103 96 - 110 mmol/L LAB CHEMISTRY METHOD 07/23/2024 1:58 PM [facility] CO2 23 21 - 32 mmol/L LAB CHEMISTRY METHOD 07/23/2024 1:58 PM [facility] Anion Gap 11 3 - 11 LAB CHEMISTRY METHOD 07/23/2024 1:58 PM [facility] Glucose 156(H) 70 - 100 mg/dL LAB CHEMISTRY METHOD 07/23/2024 1:58 PM [facility] BUN 19 5 - 25 mg/dL LAB CHEMISTRY METHOD 07/23/2024 1:58 PM [facility] Creatinine 1.17 0.70 - 1.30 mg/dL LAB CHEMISTRY METHOD 07/23/2024 1:58 PM [facility] eGFR 64 >=60 mL/min/1. 73m2 LAB CHEMISTRY METHOD 07/23/2024 1:58 PM [facility] Comment:Calculation based on the??Chronic Kidney Disease Epidemiology Collaboration (CKD-EPI) equation refit??without adjustment for race. BUN/Creatinine Ratio 16.2 LAB CHEMISTRY METHOD 07/23/2024 1:58 PM [facility] Calcium 9.1 8.5 - 10.5 mg/dL LAB CHEMISTRY METHOD 07/23/2024 1:58 PM [facility] AST (SGOT) 23 10 - 42 unit/L LAB CHEMISTRY METHOD 07/23/2024 1:58 PM [facility] ALT (SGPT) 21 10 - 60 unit/L LAB CHEMISTRY METHOD 07/23/2024 1:58 PM [facility] Alkaline Phosphatase 96 42 - 121 unit/L LAB CHEMISTRY METHOD 07/23/2024 1:58 PM [facility] Total Protein 6.9 6.0 - 8.0 g/dL LAB CHEMISTRY METHOD 07/23/2024 1:58 PM [facility] Albumin 3.1(L) 3.2 - 5.0 g/dL LAB CHEMISTRY METHOD 07/23/2024 1:58 PM [facility] Total Bilirubin 0.5 0.0 - 1.4 mg/dL LAB CHEMISTRY METHOD 07/23/2024 1:58 PM [facility] Blood Venous blood specimen / Unknown Venipuncture / Unknown 07/23/2024 8:56 AM EST 07/23/2024 10:27 AM EST us Jagjit JOHNSON LAB BLOOD ORDERABLES Final Re sult [facility] [address] [place] [address], [place] [phone] * (ABNORMAL) Complete blood count (07/23/2024 8:56 AM EST) [facility] WBC 6.5 4.8 - 10.8 K/mcL LAB HEMETOLOGY METHOD 07/23/2024 12:33 PM [facility] RBC 4.60 4.50 - 5.50 M/mcL LAB HEMETOLOGY METHOD 07/23/2024 12:33 PM [facility] Hemoglobin 12.7(L) 13.5 - 17.5 g/dL LAB HEMETOLOGY METHOD 07/23/2024 12:33 PM [facility] Hematocrit 39.8(L) 42.0 - 54.0 % LAB HEMETOLOGY METHOD 07/23/2024 12:33 PM [facility] MCV 86.3 79.0 - 98.0 FL LAB HEMETOLOGY METHOD 07/23/2024 12:33 PM [facility] MCH 27.5 27.0 - 32.0 pcg LAB HEMETOLOGY METHOD 07/23/2024 12:33 PM [facility] MCHC 31.9(L) 32.0 - 37.0 g/dL LAB HEMETOLOGY METHOD 07/23/2024 12:33 PM [facility] RDW 13.8 11.0 - 15.0 % LAB HEMETOLOGY METHOD 07/23/2024 12:33 PM [facility] Platelets 280 130 - 400 K/mcL LAB HEMETOLOGY METHOD 07/23/2024 12:33 PM [facility] MPV 9.1 7.0 - 11.0 FL LAB HEMETOLOGY METHOD 07/23/2024 12:33 PM [facility] NRBC 0.0 <1.0 % LAB HEMETOLOGY METHOD 07/23/2024 12:33 PM EST [facility] NRBC Absolute 0.00 <0.10 K/mcL LAB HEMETOLOGY METHOD 07/23/2024 12:33 PM EST [facility] Blood Venous blood specimen / Unknown Venipuncture / Unknown 07/23/2024 8:56 AM EST 07/23/2024 10:27 AM EST us Jagjit JOHNSON LAB BLOOD ORDERABLES Final Re sult [facility] [address] [place] [address], documented in this encounter Visit Diagnoses Diagnosis Hyperlipidemia, unspecified Essential (primary) hypertension Unspecified essential hypertension Anemia, unspecified Type 2 diabetes mellitus without complications (CMS/HCC V24, CMS/[facility] V28) Vitamin D deficiency, unspecified Cellulitis, unspecified documented in this encounter Additional Health Concerns Infection Onset Date Last Indicated Resolved Time C. difficile 08/02/2024 08/02/2024 08/26/2024 7:06 PM EDT C. Diff Rule-Out Infection 08/03/2024 08/02/2024 0 08/03/2024 11:45 AM EDT documented as of this encounter Care Teams Survival Equipment Repairer Relationship Specialty Start Date End Date Jagjit Hancock PA [address] [place] [address] [place] [phone] PCP - General Physician [employer] Assistant Principal 07/23/24 documented as of this encounter
--- OUTSIDE RECORDS SUMMARY | 2024-09-11 12:55 | XMS_ITS | Continuity of Care Document ---
Author Name [facility] Organization [facility] Care Team Providers Care Stapler Coil Unit Name Role Phone [facility] Unavailable Unavailable Problems Combined list of problems [...] Art SANTAMARIA Comment: Right shoulder replacement 2016 [facility] At risk of pressure ulcer (SNOMED CT 984081567) Active Condition [facility] DM - Diabetes mellitus (SNOMED CT 10221571) Active Condition [facility] HTN - Hypertension (SNOMED CT 40138053) Active Condition [facility] Hyperlipidemia (SCT 26600676) [facility] Active [facility] [place] [facility] Osteoarthritis Active Condition [facility] Pain in right hip joint Active Condition [facility] Polyp of colon Active Condition September 262013 Entered By: LIA ABRAHAM Comment: 2012 2 polypsSep 2017 Entered By: Art SANTAMARIA Comment: 06/13 1 polypApr 2020 Entered By: Art SANTAMARIA Comment: 10/2019 EGD and colonic polyp-see note 08/27/20-due 11/17 colon [facility] Postsurgical Status of Cataract Extraction Active Condition Sep 10, 2012 Entered By: LIA ABRAHAM Comment: alondra [facility] Pressure injury of buttock Active Condition Aug 15, 2023 Entered By: KEO ANAYA Comment: Managed by MYNOR Acevedo [facility] Psoriasis Active Condition [facility] Diagnosis: ICD-10-CM L03.116 Cellulitis of left lower limb Active Diagnosis [facility] Diagnosis: ICD-10-CM E11.9 Type 2 diabetes mellitus without complications Active Diagnosis [facility] Diagnosis: ICD-10-CM E11.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 Medication Details Route Status Patient Instructions Prescription Expires Prescription Number Last Dispense Date Ordering Provider Order Date Order Qty Source ASPIRIN 81MG TAB,EC TAKE ONE TABLET BY MOUTH DAILY ORAL ACTIVE JOSH ABRAHAM 2013 [facility] CICLOPIROX OLAMINE 0.77% CREAM,TOP APPLY A TOPICALL Y TWICE DAILY TOPICA L ACTIVE JOSH ABRAHAM 2012 [place] CYANOCOBALA MIN 1000MCG TAB TAKE ONE TABLET BY MOUTH DAILY ORAL ACTIVE JOSH ABRAHAM 2013 [facility] DICLOFENAC NA 1% GEL,TOP APPLY 2 GRAMS TOPICALL Y FOUR TIMES DAILY NEEDED FOR OSTEOART HRITIS - USE DOSING CARD PROVIDED IN BOX TOPICA L ACTIVE 01/30/2025 [id number] 5 Frantz TRUJILLO A 2023 100 [place] DICLOFENAC NA 1% GEL,TOP APPLY 2 GRAMS TOPICALL Y FOUR TIMES DAILY NEEDED FOR OSTEOART HRITIS - USE DOSING CARD PROVIDED IN [facility]OX [facility] [id number] 4 KATIE ACEVEDO 2022 100 [place] FLUOCINONID E 0.05% CREAM,TOP APPLY A TOPICALL Y TWICE DAILY TOPICA L ACTIVE JOSH ABRAHAM 2012 [place] HYDROCHLORO THIAZIDE 25MG TAB TAKE ONE TABLET BY MOUTH DAILY TO PREVENT FLUID/CO NTROL BLOOD PRESSURE ORAL ACTIVE 01/30/2025 [id number] 5 Frantz TRUJILLO A 2023 90 [place] HYDROCHLORO THIAZIDE 25MG TAB TAKE ONE TABLET BY MOUTH DAILY TO PREVENT FLUID/CO NTROL BLOOD PRESSURE ORAL DISCONT INUED 02/15/2024 [id number] KATIE ACEVEDO CHE[place] S 2022 90 [place] LIDOCAINE 5% PATCH APPLY 1 PATCH TOPICALL Y ONCE DAILY NEEDED (LEAVE PATCH ON FOR 12 HOURS, THEN REMOVE PATCH) TOPICA L ACTIVE 01/30/2025 [id number] 5 Frantz TRUJILLO A 2023 30 [place] LIDOCAINE 5% PATCH APPLY 1 PATCH TOPICALL Y ONCE DAILY NEEDED (LEAVE PATCH ON FOR 12 HOURS, THEN REMOVE PATCH) TOPICA L DISCONT INUED 02/15/2024 [id number] 4 ACEVEDO,KATIE [place] S 2022 30 [place] LORATADINE 10MG TAB TAKE ONE TABLET BY MOUTH DAILY ORAL ACTIVE JOSH ABRAHAM 2013 [place] LOSARTAN POTASSIUM 100MG TAB TAKE ONE TABLET BY MOUTH ONCE DAILY FOR BLOOD PRESSURE /HEART ORAL ACTIVE 01/30/2025 [id number] 4 Frantz TRUJILLO A 2023 90 [place] POTASSIUM 100MG TAB TAKE ONE TABLET BY MOUTH ONCE DAILY FOR BLOOD PRESSURE /HEART ORAL DISCONT INUED 02/15/2024 [id number] KATIE ACEVEDO S 2022 90 [place] MAGNESIUM OXIDE TAB TAKE BY MOUTH ORAL ACTIVE ROWENA LAURENT 2018 [place] METFORMIN HCL 1000MG TAB TAKE ONE TABLET BY MOUTH TWICE DAILY FOR DIABETES ORAL ACTIVE 01/30/2025 [id number] 5 Frantz TRUJILLO A 2023 180 [place] METFORMIN HCL 1000MG TAB TAKE ONE TABLET BY MOUTH TWICE DAILY FOR DIABETES ORAL DISCONT INUED 02/15/2024 [id number] 4 KATIE ACEVEDO S 2022 180 [place] METOPROLOL TARTRATE 50MG TAB TAKE ONE TABLET BY MOUTH TWICE DAILY FOR BLOOD PRESSURE /HEART ORAL ACTIVE 06/25/2025 [id number] 5 Frantz TRUJILLO A 2024 180 [place] METOPROLOL TARTRATE 50MG TAB TAKE ONE TABLET BY MOUTH TWICE DAILY FOR BLOOD PRESSURE /HEART ORAL DISCONT INUED 09/26/2024 [id number] ALVARADO ANAYA 2023 180 [place] METOPROLOL TARTRATE 50MG TAB TAKE ONE TABLET BY MOUTH TWICE DAILY FOR BLOOD PRESSURE /HEART ORAL DISCONT INUED 01/16/2024 [id number] ACEVEDO,AD CHESTER S 2022 180 [place] MULTIVITAMI NS W/MINERALS TAB TAKE ONE TABLET BY MOUTH DAILY ORAL ACTIVE JOSH ABRAHAM 2013 IELD OTHER CAP/TAB TAKE 1 APPLICAT ION topical ONCE DAILY NEEDED ACTIVE ROWENA LAURENT spring I[place] ROSUVASTATI N CA 10MG TAB TAKE ONE-HALF TABLET BY MOUTH TWO TIMES A WEEK FOR CHOLESTE ROL ORAL ACTIVE 01/30/2025 [id number] 4 Frantz TRUJILLO AVID A 2023 13 IELD ROSUVASTATI N CA 10MG TAB TAKE ONE-HALF TABLET BY MOUTH TWO TIMES A WEEK FOR CHOLESTE ROL ORAL DISCONT INUED 02/15/2024 [id number] 4 ACEVEDO,AD CHESTER S 2022 13 I[place] SEMAGLUTIDE 1MG/0.75ML INJ,SOLN,PE N,3ML INJECT 1MG SUBCUTAN EOUSLY ONCE A WEEK SUBCUT ANEOUS ACTIVE 06/25/2025 [id number] 5 Frantz TRUJILLO AVID A 2024 3 IELD SEMAGLUTIDE 1MG/0.75ML INJ,SOLN,PE N,3ML INJECT 1MG SUBCUTAN EOUSLY ONCE A WEEK SUBCUT ANEOUS DISCONT INUED 09/26/2024 [id number] ALVARADO ANAYA 2023 3 IELD SEMAGLUTIDE 1MG/0.75ML INJ,SOLN,PE N,3ML INJECT 1MG SUBCUTAN EOUSLY ONCE A WEEK SUBCUT ANEOUS DISCONT INUED 05/11/2024 [id number] 4 ALVARADO ANAYA 2023 1 IELD SENNOSIDE 8.6MG (SENNA) TAB TAKE BY MOUTH DAILY ORAL ACTIVE JOSH ABRAHAM 2013 IELD SPIRONOLACT ONE 25MG TAB TAKE TWO TABLETS BY MOUTH ONCE DAILY ORAL ACTIVE 01/30/2025 [id number] 4 Frantz TRUJILLO 2023 180 IELD SPIRONOLACT ONE 25MG TAB TAKE TWO TABLETS BY MOUTH DAILY [REPLACE S CRISTIAN NE] ORAL DISCONT INUED 02/15/2024 [id number] 4 ACEVEDO,AD CHESTER S 2022 180 [place] TACROLIMUS 0.1% OINT,TOP APPLY THIN LAYER TOPICALL Y TWICE DAILY FOR ATOPIC DERMATIT IS TOPICA L PROVIDE R HOLD 03/27/2024 [id number] ACEVEDO,KATIE CHESTER S 2022 180 IELD VITAMIN D3 (CHOLECALCI FEROL) TAB TAKE BY MOUTH ORAL ACTIVE ROWENA LAURENT 2020 [facility] Immunizations Combined list of available immunizations from the Department of Defense and Veterans Affairs facilities. Immunization Series Date Given Administered By Site Reaction Lot Number CVX Code Drug Occupational Psychologist Status Comments Source COVID-19 (MODERNA), MRNA, LNP-S, PF, 50 MCG/0.5 ML (AGES 12+ YEARS) 2023 NORI HUGHES AXEL RIGHT DELTO ID [id number] 312 complet ed [facility] [place] [facility] INFLUENZA, HIGH-DOSE, TRIVALENT, PF 2023 SAULNORI AXEL LEFT DELTO ID [id number] 135 complet ed [facility] [place] [facility] COVID-19 (MODERNA), MRNA, LNP-S, PF, 50 MCG/0.5 ML (AGES 12+ YEARS) 1 2022 312 complet ed HISTORICA L INFORMATI ON - FROM PATIENT'S WRITTEN RECORD, Lot#: [id number] Mfr: [employer] Expiratio n Date: 08/31/23 [facility] INFLUENZA, HIGH-DOSE, QUADRIVALENT 2022 WEI OCHOA LEFT DELTO ID [id number] A 197 complet ed [facility] COVID-19 (MODERNA), MRNA, LNP-S, BIVALENT BOOSTER, PF, 50 MCG/0.5 ML OR 25MCG/0.25 ML DOSE 2021 SHEREEN IVERSON LEFT DELTO ID [id number] 229 complet ed Booster for Series, [facility] COVID-19 (MODERNA), MRNA, LNP-S, PF, 100 MCG OR 50 MCG DOSE 3 2020 207 complet ed MOD; [id number]; 2 [facility] INFLUENZA VACCINE, QUADRIVALENT, ADJUVANTED 2020 205 complet ed [facility] COVID-19 (MODERNA), MRNA, LNP-S, PF, 100 MCG/0.5 ML DOSE 2 2020 207 complet ed MOD; [id number]; 1 [facility] COVID-19 (MODERNA), MRNA, LNP-S, PF, 100 MCG/0.5 ML DOSE 1 2020 207 complet ed MOD; [id number]; 1 [facility] INFLUENZA, UNSPECIFIED FORMULATION 2019 88 complet ed [facility] INFLUENZA, SEASONAL, INJECTABLE 2018 141 complet ed [facility] INFLUENZA, SEASONAL, INJECTABLE 2017 141 complet ed documenta tion influenza HD 03-21-18 Left deltoid [id number] exp 09-26-18 [facility] ZOSTER RECOMBINANT 2 2017 187 complet ed [place] TDAP 2017 115 complet ed [facility] [...] Jul 11, 2024 08:32 AM Reporting Lab: [facility] [place] [facility] [address] [facility] [address] Performing Lab: [facility] [address] [facility] [address] [place] MICROALBU MIN CREATININ E RATIO PANEL MICROALBUMI N/CREATININ E [MASS RATIO] IN URINE 6.9 mg/g 0 - 29.9 07/11 Specimen Type: URINE No comment entered. Ordering Provider: POPEYE TRUJILLO A Report Released Date/Time: Jul 11, 2024 08:32 AM Reporting Lab: [facility] [place] [facility] [address] [facility] [address] Performing Lab: [facility] [place] [address] [address] [place] MICROALBU MIN CREATININ E RATIO PANEL MICROALBUMI N [MASS/VOLUM E] IN URINE 0.7 mg/dL 07/11 Specimen Type: URINE No comment entered. Ordering Provider: POPEYE TRUJILLO A Report Released Date/Time: Jul 11, 2024 08:32 AM Reporting Lab: [facility] [place] [facility] [address] [facility] [address] Performing Lab: [facility] [address] [address] [place] MICROALBU MIN CREATININ E RATIO PANEL CREATININE [MASS/VOLUM E] IN URINE 101.71 mg/dL 07/11 Specimen Type: URINE No comment entered. Ordering Provider: POPEYE TRUJILLO A Report Released Date/Time: Jul 11, 2024 08:32 AM Reporting Lab: [facility] [place] [address] [address] Performing Lab: [facility] [address] [address] [place] TSH THYROTROPIN [UNITS/VOLU ME] IN SERUM OR PLASMA 4.62 u[IU]/ mL 0.35 - 5.00 07/11 Specimen Type: SERUM No comment entered. Ordering Provider: POPEYE TRUJILLO A Report Released Date/Time: Jul 11, 2024 08:32 AM Reporting Lab: [facility] [place] [address] [address] Performing Lab: [facility] [address] [place] VITAMIN D (25-OH) 25-HYDROXYV ITAMIN D3 [MASS/VOLUM E] IN SERUM OR PLASMA 48 ng/mL 20 - 50 07/11 Specimen Type: SERUM No comment entered. Ordering Provider: POPEYE TRUJILLO A Report Released Date/Time: Jul 11, 2024 08:32 AM Reporting Lab: [facility] [place] [facility] [address] [facility] [address] Performing Lab: [facility] [place] [facility] [address] [facility] [address] [place] CBC LEUKOCYTES [#/VOLUME] IN BLOOD BY AUTOMATED COUNT 9.27 10*3/u L 4.50 - 11.00 07/11 Specimen Type: BLOOD No comment entered. Ordering Provider: POPEYE TRUJILLO A Report Released Date/Time: Jul 11, 2024 08:32 AM Reporting Lab: [facility] [place] [facility] [address] [facility] [address] Performing Lab: [facility] [place] [address] [address] [place] CBC ERYTHROCYTE S [#/VOLUME] IN BLOOD BY AUTOMATED COUNT 4.41 10*6/u L 4.23 - 5.66 07/11 Specimen Type: BLOOD No comment entered. Ordering Provider: POPEYE TRUJILLO A Report Released Date/Time: Jul 11, 2024 08:32 AM Reporting Lab: [facility] [place] [address] [address] Performing Lab: [facility] [place] [facility] [address] [facility] [address] [place] CBC HEMOGLOBIN [MASS/VOLUM E] IN BLOOD 12.3 g/dL 12.8 - 17 07/11 L Specimen Type: BLOOD No comment entered. Ordering Provider: POPEYE TRUJILLO A Report Released Date/Time: Jul 11, 2024 08:32 AM Reporting Lab: [facility] [place] [facility] [address] [facility] [address] Performing Lab: [facility] [place] [address] [address] [place] CBC HEMATOCRIT [VOLUME FRACTION] OF BLOOD BY AUTOMATED COUNT 37.7 39.2 - 50.4 07/11 L Specimen Type: BLOOD No comment entered. Ordering Provider: POPEYE TRUJILLO A Report Released Date/Time: Jul 11, 2024 08:32 AM Reporting Lab: [facility] [place] [facility] [address] [facility] [address] Performing Lab: [facility] [place] [facility] [address] [facility] [address] [place] CBC MCV [ENTITIC VOLUME] BY AUTOMATED COUNT 85.5 fL 82 - 99 07/11 Specimen Type: BLOOD No comment entered. Ordering Provider: POPEYE TRUJILLO A Report Released Date/Time: Jul 11, 2024 08:32 AM Reporting Lab: [facility] [place] [facility] [address] [facility] [address] Performing Lab: [facility] [place] [address] [address] [place] CBC MCHC [MASS/VOLUM E] BY AUTOMATED COUNT 32.6 g/dL 30.8 - 35.1 07/11 Specimen Type: BLOOD No comment entered. Ordering Provider: POPEYE TRUJILLO A Report Released Date/Time: Jul 11, 2024 08:32 AM Reporting Lab: [facility] [place] [address] [address] Performing Lab: [facility] [place] [address] [address] [place] CBC PLATELETS [#/VOLUME] IN BLOOD BY AUTOMATED COUNT 277 10*3/u L 140 - 360 07/11 Specimen Type: BLOOD No comment entered. Ordering Provider: POPEYE TRUJILLO A Report Released Date/Time: Jul 11, 2024 08:32 AM Reporting Lab: [facility] [place] [address] [address] Performing Lab: [facility] [place] [address] [address] [place] CBC ERYTHROCYTE DISTRIBUTIO N WIDTH [RATIO] BY AUTOMATED COUNT 13.8 12.0 - 16.0 07/11 Specimen Type: BLOOD No comment entered. Ordering Provider: POPEYE TRUJILLO A Report Released Date/Time: Jul 11, 2024 08:32 AM Reporting Lab: [facility] [place] [address] [address] Performing Lab: [facility] [address] [facility] [address] [place] CBC MCH [ENTITIC MASS] BY AUTOMATED COUNT 27.9 pg 26.2 - 32.6 07/11 Specimen Type: BLOOD No comment entered. Ordering Provider: POPEYE TRUJILLO A Report Released Date/Time: Jul 11, 2024 08:32 AM Reporting Lab: [facility]ITALUSE[address] [address] Performing Lab: [facility]ITALUSE[address] [address] [place] LIPID PANEL, NON FASTING CHOLESTEROL [MASS/VOLUM E] IN SERUM OR PLASMA 147 mg/dL 07/11 Specimen Type: SERUM No comment entered. Ordering Provider: POPEYE TRUJILLO A Report Released Date/Time: Jul 11, 2024 08:32 AM Reporting Lab: [facility] [address] [address] Performing Lab: [facility]ITAL[facility] [address] [place] LIPID PANEL, NON FASTING TRIGLYCERID E [MASS/VOLUM E] IN SERUM OR PLASMA 96 mg/dL 0 - 150 07/11 Specimen Type: SERUM No comment entered. Ordering Provider: POPEYE TRUJILLO A Report Released Date/Time: Jul 11, 2024 08:32 AM Reporting Lab: [facility] [address] Performing Lab: [facility]TR[facility]ITALUSETS [address] [address] [place] LIPID PANEL, NON FASTING CHOLESTEROL IN LDL [MASS/VOLUM E] IN SERUM OR PLASMA BY CALCULATION 76 mg/dL 0 - 129 07/11 Specimen Type: SERUM No comment entered. Ordering Provider: POPEYE TRUJILLO A Report Released Date/Time: Jul 11, 2024 08:32 AM Reporting Lab: [facility] [address] [address] Performing Lab: [facility]TRN [place] [place] [address] [place] LIPID PANEL, NON FASTING CHOLESTEROL .TOTAL/CHOL ESTEROL IN HDL [MASS RATIO] IN SERUM OR PLASMA 2.8 07/11 Specimen Type: SERUM No comment entered. Ordering Provider: POPEYE TRUJILLO A Report Released Date/Time: Jul 11, 2024 08:32 AM Reporting Lab: [facility] [address] [facility] [address] Performing Lab: [facility] [address] [address] [place] LIPID PANEL, NON FASTING CHOLESTEROL IN HDL [MASS/VOLUM E] IN SERUM OR PLASMA 52 mg/dL 40 - 60 07/11 Specimen Type: SERUM No comment entered. Ordering Provider: POPEYE TRUJILLO A Report Released Date/Time: Jul 11, 2024 08:32 AM Reporting Lab: [facility] [address] [address] Performing Lab: [facility] [address] [address] [place] BASIC METABOLIC PANEL (non-fast ing) UREA NITROGEN [MASS/VOLUM E] IN SERUM OR PLASMA 20 mg/dL 7 - 25 07/11 Specimen Type: SERUM No comment entered. Ordering Provider: POPEYE TRUJILLO A Report Released Date/Time: Jul 11, 2024 08:32 AM Reporting Lab: [facility] [address] [address] Performing Lab: [facility] [address] [address] [place] BASIC METABOLIC PANEL (non-fast ing) GLUCOSE [MASS/VOLUM E] IN SERUM OR PLASMA 135 mg/dL 65 - 100 07/11 H Specimen Type: SERUM No comment entered. Ordering Provider: POPEYE TRUJILLO A Report Released Date/Time: Jul 11, 2024 08:32 AM Reporting Lab: [facility] [address] [address] Performing Lab: [facility] [address] [address] [place] BASIC METABOLIC PANEL (non-fast ing) SODIUM [MOLES/VOLU ME] IN SERUM OR PLASMA 138 mmol/L 135 - 145 07/11 Specimen Type: SERUM No comment entered. Ordering Provider: POPEYE TRUJILLO A Report Released Date/Time: Jul 11, 2024 08:32 AM Reporting Lab: [facility] [address] [address] Performing Lab: [facility] [address] [address] [place] BASIC METABOLIC PANEL (non-fast ing) POTASSIUM [MOLES/VOLU ME] IN SERUM OR PLASMA 3.8 mmol/L 3.5 - 5.0 07/11 Specimen Type: SERUM No comment entered. Ordering Provider: POPEYE TRUJILLO A Report Released Date/Time: Jul 11, 2024 08:32 AM Reporting Lab: [facility] [address] [address] Performing Lab: [facility] [address] [address] [place] BASIC METABOLIC PANEL (non-fast ing) CHLORIDE [MOLES/VOLU ME] IN SERUM OR PLASMA 100 mmol/L 100 - 110 07/11 Specimen Type: SERUM No comment entered. Ordering Provider: POPEYE TRUJILLO A Report Released Date/Time: Jul 11, 2024 08:32 AM Reporting Lab: [facility] [address] [address] Performing Lab: [facility] [address] [address] [place] BASIC METABOLIC PANEL (non-fast ing) CARBON DIOXIDE, TOTAL [MOLES/VOLU ME] IN SERUM OR PLASMA 28 meq/L 20 - 30 07/11 Specimen Type: SERUM No comment entered. Ordering Provider: POPEYE TRUJILLO A Report Released Date/Time: Jul 11, 2024 08:32 AM Reporting Lab: [facility] [address] [address] Performing Lab: [facility] [place] [facility] [address] [facility] [address] [place] BASIC METABOLIC PANEL (non-fast ing) CREATININE [MASS/VOLUM E] IN SERUM OR PLASMA 1.07 mg/dL 0.50 - 1.40 07/11 Specimen Type: SERUM No comment entered. Ordering Provider: POPEYE TRUJILLO A Report Released Date/Time: Jul 11, 2024 08:32 AM Reporting Lab: [facility] [place] [facility] [address] [facility] [address] Performing Lab: [facility] [address] [place] BASIC METABOLIC PANEL (non-fast ing) GLOMERULAR FILTRATION RATE/1.73 SQ M.PREDICTED [VOLUME RATE/AREA] IN SERUM, PLASMA OR BLOOD BY CREATININE- BASED FORMULA (CKD-EPI 2020) 71 mL/min 60 07/11 Specimen Type: SERUM No comment entered. Ordering Provider: POPEYE TRUJILLO A Report Released Date/Time: Jul 11, 2024 08:32 AM Reporting Lab: [facility] [place] [address] [address] Performing Lab: [facility] [address] [place] LIVER FUNCTION PROTEIN [MASS/VOLUM E] IN SERUM OR PLASMA 7.7 g/dL 6.0 - 8.3 07/11 Specimen Type: SERUM No comment entered. Ordering Provider: POPEYE TRUJILLO A Report Released Date/Time: Jul 11, 2024 08:32 AM Reporting Lab: [facility] [address] [address] Performing Lab: [facility] [address] [address] [place] LIVER FUNCTION ALBUMIN [MASS/VOLUM E] IN SERUM OR PLASMA 3.5 g/dL 3.5 - 5.0 07/11 Specimen Type: SERUM No comment entered. Ordering Provider: POPEYE TRUJILLO A Report Released Date/Time: Jul 11, 2024 08:32 AM Reporting Lab: [facility] [place] [facility] [address] [facility] [address] Performing Lab: [facility] [place] [facility] [address] [facility] [address] [place] LIVER FUNCTION ALKALINE PHOSPHATASE [ENZYMATIC ACTIVITY/VO LUME] IN SERUM OR PLASMA 90 U/L 40 - 150 07/11 Specimen Type: SERUM No comment entered. Ordering Provider: POPEYE TRUJILLO A Report Released Date/Time: Jul 11, 2024 08:32 AM Reporting Lab: [facility] [place] [facility] [address] [facility] [address] Performing Lab: [facility] [place] [address] [address] [place] LIVER FUNCTION ASPARTATE AMINOTRANSF ERASE [ENZYMATIC ACTIVITY/VO LUME] IN SERUM OR PLASMA 17 U/L 5 - 34 07/11 Specimen Type: SERUM No comment entered. Ordering Provider: POPEYE TRUJILLO A Report Released Date/Time: Jul 11, 2024 08:32 AM Reporting Lab: [facility] [place] [address] [address] Performing Lab: [facility] [place] [address] [address] [place] LIVER FUNCTION ALANINE AMINOTRANSF ERASE [ENZYMATIC ACTIVITY/VO LUME] IN SERUM OR PLASMA 12 U/L 07/11 Specimen Type: SERUM No comment entered. Ordering Provider: POPEYE TRUJILLO A Report Released Date/Time: Jul 11, 2024 08:32 AM Reporting Lab: [facility] [place] [address] [address] Performing Lab: [facility] [place] [address] [address] [place] LIVER FUNCTION BILIRUBIN.T OTAL [MASS/VOLUM E] IN SERUM OR PLASMA 0.3 mg/dL 0.2 - 1.2 07/11 Specimen Type: SERUM No comment entered. Ordering Provider: POPEYE TRUJILLO A Report Released Date/Time: Jul 11, 2024 08:32 AM Reporting Lab: [facility] [address] [address] Performing Lab: [facility] [address] [address] [place] HEMOGLOBI N A1C PANEL HEMOGLOBIN [...] Aug 15, 2023 02:27 PM Reporting Lab: [address] [address] Performing Lab: [address] [address] [place] MICROALBU MIN CREATININ E RATIO PANEL MICROALBUMI N/CREATININ E [MASS RATIO] IN URINE 10.2 mg/g 0 - 29.9 02/28 Specimen Type: URINE No comment entered. Ordering Provider: ISABEL ANAYA Report Released Date/Time: Aug 15, 2023 02:27 PM Reporting Lab: [address] [address] Performing Lab: [facility] [address] [address] [place] MICROALBU MIN CREATININ E RATIO PANEL MICROALBUMI N [MASS/VOLUM E] IN URINE 1.7 mg/dL 02/28 Specimen Type: URINE No comment entered. Ordering Provider: ISABEL ANAYA Report Released Date/Time: Aug 15, 2023 02:27 PM Reporting Lab: [address] [address] Performing Lab: [address] [address] [place] [facility] MICROALBU MIN CREATININ E RATIO PANEL CREATININE [MASS/VOLUM E] IN URINE 166.35 mg/dL 02/28 Specimen Type: URINE No comment entered. Ordering Provider: ISABEL ANAYA Report Released Date/Time: Aug 15, 2023 02:27 PM Reporting Lab: [facility] [address] [facility] [phone] Performing Lab: [facility] [address] [facility] [phone] [facility] Vital Signs Combined list of inpatient and outpatient Vital Signs from Department of [facility] and [facility], ranging from 12 months to all on record, depending upon the facility. Vital Sign Value Date Comments Source SYSTOLIC BLOOD PRESSURE 124 07/17/2024 14:39:47 [facility] DIASTOLIC BLOOD PRESSURE 84 07/17/2024 14:39:47 [facility] PULSE OXIMETRY 99 07/17/2024 14:39:47 [facility] 07/17/2024 14:39:47 [place] TEMPERATURE 97.6 07/17/2024 14:39:47 [place] PULSE 87 07/17/2024 14:39:47 [facility] SYSTOLIC BLOOD PRESSURE 128 03/06/2024 15:09:07 [facility] DIASTOLIC BLOOD PRESSURE 74 03/06/2024 15:09:07 [facility] PULSE OXIMETRY 98 03/06/2024 15:09:07 [place] WEIGHT 212 03/06/2024 15:09:07 [place] BMI 28 kg/m2 03/06/2024 15:09:07 [place] TEMPERATURE 97.6 03/06/2024 15:09:07 [place] PULSE 66 03/06/2024 15:09:07 [place] Encounters Combined list of: 1) Encounters from Department of Veterans Affairs facilities going backup to the last 18 months, not all [place] inpatient encounters are included; 2) Encounters from the Department of Defense facilities going backup to 280 months. Location Location Details Encounter Type Encounter Number Reason For Visit Attending Provider ADM Date DC Date Status Disposition Source [facility] Outpatient Encounter [id number] 03/13 [facility]counter [id number] 03/16 [facility] Encounter [id number] 04/12 [facility] Out[facility] Encounter [id number] 04/12 [facility] Out[facility] Encounter [id number] 04/13 [facility]counter [id number] 04/16 [facility] Encounter [id number] 05/08 [facility]counter [id number] 05/08 [facility] Encounter [id number] 05/22 [facility] Encounter [id number] 06/29 [facility]counter [id number] 07/19 [facility] Encounter [id number] 07/20 [facility] [place] OFF[place] O/P EST MOD 30 MIN [id number] Diagnos is: ICD-10- CM R60.9 Edema, unspeci fied HÉCTOR,MIROSLAVA HUITRON J 08/14 [facility] [place] [facility] Out[facility] Encounter [id number] 08/20 [facility] Out[facility] Encounter [id number] 09/25 [facility] Encounter [id number] 11/01 [facility] Encounter [id number] 11/06 [facility] Encounter [id number] 11/15 [facility] Out[facility] Encounter [id number] 11/17 [facility] Out[facility] Encounter [id number] 11/18 [facility] Encounter [id number] 11/18 [facility] Encounter [id number] 11/19 [facility] Out[facility] Encounter [id number] 11/21 [facility] Encounter [id number] 11/22 [facility] [place] Outpatient Encounter [id number] 11/26 [place] [facility]P NEW LOW 30 MIN [id number] Diagnos is: ICD-10- CM 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 [id number] Diagnos is: ICD-10- CM E11.9 Type 2 diabete s mellitu s without complic ations RONNIE,DA VID A 03/06 [place] [facility] ADMN SARSCOV2 VACC 1 DOSE [id number] 1. RONNIEDA VID A 03/06 [facility] Out[facility] Encounter [id number] 05/23 [facility] Out[facility] Encounter [id number] 05/26 [facility] Out[facility] Encounter [id number] 06/23 [facility] OFFICE O/P EST HI 40 MIN 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 tis of left lower limb NOÉ TRUJILLO VID A 07/17 [facility] [place] [facility] Out[facility] Encounter [id number] 07/17 [facility] Outpatient Encounter [id number] 07/17 [facility] Outpatient Encounter [id number] 07/17 [facility] Outpatient Encounter [id number] 07/21 [facility] Outpatient Encounter [id number] 07/29 [facility] Social History Combined list of available smoking, tobacco, and other social history from Department of Defense and Veterans Affairs facilities. Social History Type Response Date Comment Sour e Tobacco smoking status [facility] VA-TOBACCO NEVER USED 03/06/2024 [facility] History of tobacco use VA-TOBACCO NEVER USED 02/14/2023 [facility] History of tobacco use VA-TOBACCO NEVER USED 01/27/2022 [facility] History of tobacco use VA-TOBACCO NEVER USED 01/27/2021 [facility] History of tobacco use VA-TOBACCO NEVER USED 11/08/2017 [facility] History of tobacco use LIFETIME NON-TOBACCO USER 11/08/2017 [facility] History of tobacco use LIFETIME NON-TOBACCO USER 11/08/2016 [facility] History of tobacco use LIFETIME NON-TOBACCO USER 10/21/2015 [facility] History of tobacco use LIFETIME NON-TOBACCO USER 09/10/2012 [facility]
--- OUTSIDE RECORDS SUMMARY | 2024-09-11 12:55 | XMS_ITS | Encounter Summary ---
Author Organization [facility] Address [address] [place] [address] Care Team Providers Care Behavioral Sciences Instructor Name Role Phone Jagjit Hancock Primary Care Provider Gigi price Encounter Details Date Type Department Care Team (Late st Contact Info) Description 08/03/2024 Lab Requisition [facility] - Main Lab [address] [place] [phone] Mary Cotter PA [address] [place] [id number] Diarrhea, unspecified Social History Tobacco Use Types [...] LAB MICROBIOLOGY METHOD 08/03/2024 12:41 PM EDT [facility] ([facility] [[email or web address] Comment: CRITICAL RESULT POSITIVE FOR TOXIN PRODUCING CLOSTRIDIOIDES DIFFICILE, NO ADDITIONAL TESTING IS NECESSARY. REPEAT SAMPLES SHOULD NOT BE SUBMITTED FOR TEST OF CURE. Stool Rectum structure / Unknown Non-blood Collection / Unknown 08/02/2024 7:40 PM EST 08/03/2024 11:45 AM EDT [facility] MICROBIOLOGY - GENERAL ORD ERABLES Final Result Performing Organization Address City/[facility]/ZIP Co de Phone Number [facility] [address] [place] [address], [place] [phone] * Clostridium difficile toxin (08/02/2024 7:40 PM EST) C difficile Toxins A+B, EIA 08/03/2024 11:45 AM EDT [facility] Comment:Refer to C. difficil e PCR assay for results. Stool Rectum structure / Unknown Non-blood Collection / Unknown 08/02/2024 7:40 PM EST 08/03/2024 10:19 AM EDT Mary [facility] MICROBIOLOGY - GENERAL ORD ERABLES Final Result Performing Organization Address [facility] Co de Phone Number [facility] [address] [place] [address], [place] [phone] documented in this encounter Visit Diagnoses Diagnosis Diarrhea, unspecified documented in this encounter Additional Health Concerns Infection Onset Date Last Indicated Resolved Time C. difficile 08/02/2024 08/02/2024 08/26/2024 7:06 PM EDT C. Diff Rule-Out Infection 08/03/2024 08/02/2024 0 08/03/2024 11:45 AM EDT documented as of this encounter Care Teams Behavioral Sciences Instructor Relationship Specialty Start Date End Date Jagjit Hancock PA [address] [place] [address] [place] [phone] PCP - General Physician Information Systems Coordinator 07/23/24 documented as of this encounter
== END 2024-09-11 12:05 | disposition home or self-care (01) ==
LOC: HO.HMCC 10:39
PROVIDERS: PCP Internal Medicine; Visit Provider Internal Medicine
DX: R79.89 Other specified abnormal findings of blood chemistry (principal); E11.9 Type 2 diabetes mellitus without complications; I10 Essential (primary) hypertension; E78.5 Hyperlipidemia, unspecified; R94.4 Abnormal results of kidney function studies

== ENCOUNTER → 2024-09-11 10:38 | Outpatient (BNVA) | payer MEDICARE, SELFPAY | PROVIDERS: PCP Internal Medicine; Visit Provider Internal Medicine | DX: R79.89 Other specified abnormal findings of blood chemistry (principal); E11.9 Type 2 diabetes mellitus without complications; I10 Essential (primary) hypertension; E78.5 Hyperlipidemia, unspecified; R94.4 Abnormal results of kidney function studies | CPT/HCPCS: 99212 ==

== ENCOUNTER 2024-09-22 10:24 | Outpatient (AMB) | payer MEDICARE, SELFPAY ==
--- NOTE | 2024-09-22 10:41 | HO.NEPHOV_ITS ---
Vital Signs 09/22/24 10:43 Height 5 ft 11 in Weight 197 lb 4 oz BMI 27.5 BP 122/80 Blood Pressure Location Rt brachial Position Sitting Pulse 76 Pulse Source Pulse Oximeter Pulse Oximetry (%) 100 Oxygen Delivery Method Room Air Intake Visit Reasons: DX- INP Abnormal labs-LVM First Aid Attendant Required: No Accompanied by: Self / Same As Patient Allergies No Known Allergies Allergy (Verified 09/22/24 10:43) HPI Comments Details: I had the pleasure of seeing Tobin who is a 79-year old male, with diabetes mellitus since 2010 along with , dyslipidemia ,hypertension and chronic wounds in buttocks, for MILADIS as well as hypertension. He denies any retinopathy. He is currently on Ozempic 1 mg once a week, in addition to metformin 1000 mg 1 tablet twice a day for his diabetes mellitus. He was found to have MILADIS and his metformin has been discontinued. He takes losartan and metoprolol for control of his blood pressure. He does not take excess sodium in the diet. patient denied any NSAID use, no urinary symptoms. His hemoglobin A1c went up from 5.8% to 6.1%, but fasting lipids are within normal limits. [facility] ulcers in his buttocks. He has bipedal edema. He has occasional dizziness. He denied taking any recent antibiotics. He denies CAD, CVA, CHF. He is concerned about his drop in renal function. [facility] Medical History (Updated 09/22/24 @ 11:12 by Waldo Padron MD) Decreased glomerular filtration rate (GFR) Elevated serum creatinine Ulcer of left heel Chronic ulcer of buttock Hx of adenomatous polyp of colon Tinea unguium Anemia Elevated vitamin B12 level Osteoarthritis of left hip Dyslipidemia Eczema Essential hypertension Type 2 diabetes mellitus without complication, without long-term current use of insulin Surgical History Hx of colonoscopy History of cataract surgery H/O shoulder replacement History of total hip replacement Family History Father Smoker Emphysema, unspecified Mother HTN (hypertension) Diabetes mellitus Cancer Brother Diabetes mellitus Social History Housing: House Are you a primary respiratory care technician to a significant other at home: No Do you presently have visiting nurse or other home services: No Alcohol intake: current Patient Tobacco Use Status: Never used Tobacco e-Cigarette/Vaping Use: Never Used service: No Current occupational status: retired Cognitive needs: No Hearing needs: No Vision needs: No Review of Systems Const All systems reviewed & are unremarkable except as noted in HPI and below Physical Exam Vital Signs: Last Vital Signs Pulse 76 09/22/24 10:43 BP 122/80 09/22/24 10:43 Pulse Ox 100 09/22/24 10:43 Oxygen Delivery Method Room Air 09/22/24 10:43 BMI result Body Mass Index 27.5 Const General: comfortable and no acute distress Orientation/consciousness: patient oriented x3 HEENT Head: Yes normocephalic Mouth: Normal oral and palatal mucosa present Eyes EOM: EOMs intact bilaterally Neck Neck: Yes supple Resp Auscultation: clear to auscultation bilaterally Cardio Jugular venous distension: no JVD Rate: regular rate GI Palpation (GI): Soft to palpation Auscultation: normal bowel sounds General: Yes no CVA tenderness Back/Spine/Pelvis Back: no CVA tenderness Skin General skin exam: no rashes or lesions noted Neuro General: patient oriented x3 and moves all extremities Extrem General: Yes edema Results Reviewed Nephrology Results: Hgb 12.3 g/dl (14.0-18.0) L 08/29/24 WBC 6.4 X10*3/uL (4.8-10.8) 08/29/24 Plt Count 265 X10*3/uL (160-400) 08/29/24 Sodium 137 mmol/L (135-145) 08/29/24 Potassium 4.2 mmol/L (3.3-5.1) 08/29/24 Chloride 105 mmol/L (96-108) 08/29/24 Carbon Dioxide 23 mmol/L (22-29) 08/29/24 BUN 54 mg/dL (9-16) H 08/29/24 Creatinine 2.07 mg/dL (0.5-1.4) H 08/29/24 Calcium 9.9 mg/dL (8.4-10.2) 08/29/24 Urine Creatinine 84.66 mg/dL 08/29/24 Assessment & Plan Assessment & Plan (1) MILADIS (acute kidney injury): Code(s): N17.9 - Acute kidney failure, unspecified Category: Medical (2) Hypertension: Code(s): I10 - Essential (primary) hypertension Category: Medical Qualifiers: Hypertension type: primary hypertension Qualified Code(s): I10 - Essential (primary) hypertension Plan Tobin has MILADIS likely due to tubular injury. He has been having dizziness. He most likely has been having altered autoregulation within the kidney with resultant tubular injury. Differential diagnosis includes obstruction, per infectious GN given chronic wounds as well as AIN. I have asked him to remain off metformin and discontinued his losartan for now. I have ordered renal USS and detailed work up. If his renal function does not improve, he may need a renal biopsy. He should avoid NSAID's. Answered all questions. F/U appointment given. Orders: Orders Protein Creatinine Ratio, Ur Today N17.9 - Acute kidney failure, unspecified Electrolytes Today N17.9 - Acute kidney failure, unspecified Calcium Today N17.9 - Acute kidney failure, unspecified Creatinine Today N17.9 - Acute kidney failure, unspecified Complement C3 Today N17.9 - Acute kidney failure, unspecified Complement C4 Today N17.9 - Acute kidney failure, unspecified Hepatitis B Surface Antigen Today N17.9 - Acute kidney failure, unspecified UA and rflx microscopic Today N17.9 - Acute kidney failure, unspecified Blood Urea Nitrogen Today N17.9 - Acute kidney failure, unspecified Myeloperoxidase Antibody Today N17.9 - Acute kidney failure, unspecified Proteinase 3 PR3 Antibodies Today N17.9 - Acute kidney failure, unspecified Anti Glomerular Basement Memb Today N17.9 - Acute kidney failure, unspecified Immunofixation Pnl, Serum Today N17.9 - Acute kidney failure, unspecified Phospholipase A2 Receptor Pnl Today N17.9 - Acute kidney failure, unspecified Hepatitis B Core Antibody Today N17.9 - Acute kidney failure, unspecified US renal BI 3 Weeks N17.9 - Acute kidney failure, unspecified Coding Level of Care Code New Pt Level 4 (32490) Diagnoses MILADIS (acute kidney injury) N17.9 Primary hypertension I10 Hypertension type: primary hypertension
[2024-09-22 10:43] VITALS: BP 122/80; PULSE 76; O2SAT 100; BMI 27.5
--- OUTSIDE RECORDS SUMMARY | 2024-09-22 12:09 | XMS_ITS | Encounter Summary ---
Author Organization [facility] Address [address] [place] [address] Care Team Providers Care Chimney Mechanic Name Role Phone Jagjit Hancock Primary Care Provider Gigi price Encounter Details Date Type Department Care Team (Latest Contact Info) Description 08/16/2024 Lab Requisition [facility] - Main Lab [address] [place] [phone] Rebecca Gomez MD [address] [place] [phone] Essential (primary) hypertension; Anemia, unspecified; Cellulitis, unspecified; [...] Comprehensive metabolic panel (08/18/2024 7:18 AM EDT) [facility] Signature Sodium 132(L) 133 - 145 mmol/L LAB CHEMISTRY METHOD 08/18/2024 12:46 PM [facility] Potassium 4.4 3.5 - 5.5 mmol/L LAB CHEMISTRY METHOD 08/18/2024 12:46 PM [facility] Chloride 95(L) 96 - 110 mmol/L LAB CHEMISTRY METHOD 08/18/2024 12:46 PM [facility] CO2 27 21 - 32 mmol/L LAB CHEMISTRY METHOD 08/18/2024 12:46 PM [facility] Anion Gap 10 3 - 11 LAB CHEMISTRY METHOD 08/18/2024 12:46 PM [facility] Glucose 88 70 - 100 mg/dL LAB CHEMISTRY METHOD 08/18/2024 12:46 PM [facility] BUN 34(H) 5 - 25 mg/dL LAB CHEMISTRY METHOD 08/18/2024 12:46 PM [facility] Creatinine 1.19 0.70 - 1.30 mg/dL LAB CHEMISTRY METHOD 08/18/2024 12:46 PM [facility] eGFR 63 >=60 mL/min/1. 73m2 LAB CHEMISTRY METHOD 08/18/2024 12:46 PM [facility] Comment:Calculation based on the??Chronic Kidney Disease Epidemiology Collaboration (CKD-EPI) equation refit??without adjustment for race. BUN/Creatinine Ratio 28.6 LAB CHEMISTRY METHOD 08/18/2024 12:46 PM [facility] Calcium 9.7 8.5 - 10.5 mg/dL LAB CHEMISTRY METHOD 08/18/2024 12:46 PM [facility] AST (SGOT) 30 10 - 42 unit/L LAB CHEMISTRY METHOD 08/18/2024 12:46 PM [facility] ALT (SGPT) 34 10 - 60 unit/L LAB CHEMISTRY METHOD 08/18/2024 12:46 PM EDT [facility] Alkaline Phosphatase 93 42 - 121 unit/L LAB CHEMISTRY METHOD 08/18/2024 12:46 PM EDT [facility] Total Protein 7.2 6.0 - 8.0 g/dL LAB CHEMISTRY METHOD 08/18/2024 12:46 PM [facility] Albumin 3.4 3.2 - 5.0 g/dL LAB CHEMISTRY METHOD 08/18/2024 12:46 PM EDT [facility] Total Bilirubin 0.6 0.0 - 1.4 mg/dL LAB CHEMISTRY METHOD 08/18/2024 12:46 PM T [facility] Blood Venous blood specimen / Unknown Venipuncture / Unknown 08/18/2024 7:18 AM EDT 08/18/2024 11:03 AM EDT Rebecca Gomez MD LAB BLOOD ORDERABLES Final Resul t [facility] [address] [place] [address], * (ABNORMAL) Complete blood count (08/18/2024 7:18 AM EDT) WBC 7.0 4.8 - 10.8 K/mcL LAB HEMETOLOGY METHOD 08/18/2024 11:59 AM EDT [facility] RBC 4.90 4.50 - 5.50 M/mcL LAB HEMETOLOGY METHOD 08/18/2024 11:59 AM EDT [facility] Hemoglobin 14.1 13.5 - 17.5 g/dL LAB HEMETOLOGY METHOD 08/18/2024 11:59 AM T [facility] Hematocrit 41.1(L) 42.0 - 54.0 % LAB HEMETOLOGY METHOD 08/18/2024 11:59 AM EDT [facility] MCV 83.4 79.0 - 98.0 FL LAB HEMETOLOGY METHOD 08/18/2024 11:59 AM EDT [facility] MCH 28.6 27.0 - 32.0 pcg LAB HEMETOLOGY METHOD 08/18/2024 11:59 AM EDT [facility] MCHC 34.3 32.0 - 37.0 g/dL LAB HEMETOLOGY METHOD 08/18/2024 11:59 AM EDT [facility] RDW 14.2 11.0 - 15.0 % LAB HEMETOLOGY METHOD 08/18/2024 11:59 AM EDT [facility] Platelets 266 130 - 400 K/mcL LAB HEMETOLOGY METHOD 08/18/2024 11:59 AM EDT [facility] MPV 8.9 7.0 - 11.0 FL LAB HEMETOLOGY METHOD 08/18/2024 11:59 AM EDT [facility] NRBC 0.0 <1.0 % LAB HEMETOLOGY METHOD 08/18/2024 11:59 AM EDT [facility] NRBC Absolute 0.00 <0.10 K/mcL LAB HEMETOLOGY METHOD 08/18/2024 11:59 AM EDT [facility] Blood Venous blood specimen / Unknown Venipuncture / Unknown 08/18/2024 7:18 AM EDT 08/18/2024 11:03 AM EDT us Rebecca Gomez MD LAB BLOOD ORDERABLES Final Resul t [facility] [address] [place] [address], documented in this encounter Visit Diagnoses Diagnosis Essential (primary) hypertension Unspecified essential hypertension Anemia, unspecified Cellulitis, unspecified Type 2 diabetes mellitus without complications (CMS/HCC V24, CMS/HCC V28) documented in this encounter Additional Health Concerns Infection Onset Date Last Indicated Resolved Time C. difficile 08/02/2024 08/02/2024 08/26/2024 7:06 PM EDT documented as of this encounter Care Teams Chimney Mechanic Relationship Specialty Start Date End Date Jagjit Hancock PA [address] [place] [address] [place] [phone] PCP - General Physician Instrument Tech 07/23/24 documented as of this encounter
--- OUTSIDE RECORDS SUMMARY | 2024-09-22 12:09 | XMS_ITS ---
Author Organization [facility] Address [address] [place] [address] Care Team Providers Care Telecom Billing Analyst Name Role Phone Marina MCDANIELS, Nubia Zelaya Primary Care Provider Un available Sebastián Sussy Unavailable [phone] Encounters Encounter Location Date Provider Diagnosis [address] [phone] 09/04/2024 Sussy Lowery Plan Of Treatment Next Appt Details Provider Name:Sussy Patterson Sebastián , 12/11/2024 03:00:00 PM, [address] [place] [address], [phone], Progress Notes * Tobin BEYDOB:1945 ( 79 yo M)Acc No.[id number]:09/04/2024 Progress Note Patient:?Tobin BEY Provider:?Sussy Lowery DPM :1945???Age:79 Y???Sex:Male Romeo e:09/04/2024 Address:[address] [phone] Pcp:Jayjay Graham Subjective: * Chief Complaints: * ??? * Medical History:? Objective: * Vitals:? Assessment: Plan: * Treatment: * Images: * The named appointment provid er may or may not be the originator of this progress note, and it is not deemed complete until electronically signed by the appointment provider. Sign off status: Pending * Provider:Hanna Lowery DPM Date:?2024 Generated for Tu schrader/Yang/Jean on:?09/22/2024 12:09 PM EDT
--- OUTSIDE RECORDS SUMMARY | 2024-09-22 12:09 | XMS_ITS | Patient Health Record ---
Author Organization [facility] Address [address] [place] [address] Care Team Providers Care Roving Technician Name Role Phone Marina MCDANIELS, Nubia Zelaya Primary Care Provider Un available Black, Sussy Unavailable [phone] Allergies No Known Allergies Results Component Value Reference Range Notes HEMOGLOBIN A1C (GLYCOHEMOGLO BIN) Reviewed date:06/02/2024 03:54:41 PM Interpretation: Performing Lab: Notes/Report: HEMOGLOBIN A1C % (HH) 5.8 HEMOGLOBIN A1C (GLYCOHEMOGLO BIN) Reviewed date:09/01/2024 01:04:59 PM Interpretation: Performing Lab: Notes/Report: HEMOGLOBIN A1C % (HH) 6.0 Reason For Referral No Information Medications Medication SIG (Take, Route, Frequency, Duration) Notes Start Date End Date Status Extra Depth Orthopedic Shoes (1 Pair) with Customized Heat Molded Multidensity Innersoles (3 Pair) as directed Dx: NIDDM/Polyneuropathy (E11.42), Hammertoe Foot Deformity (M20.41,M20.42), Preulcerative Skin Lesion(s) (L85.1 08/25/2021 Not-Taking OxyCONTIN Not-Taking Ciclopirox Olamine 0.77% external Apply to effected areas twice a day for 30 days 12/18/2013 Not-Taking Extra-Depth Diabetic Shoes with 3 Pair Custom heat-molded multi-density innersoles Not-Taking Bactrim DS 800-160 MG 1 tablet [...] (M20.41,M20.42), Preulcerative Skin Lesion(s) (L85.1 12/22/2015 Not-Taking Meloxicam 15 MG Orally Not- Taking Extra-Depth Diabetic Shoes with 3 Pair Custom heat-molded multi-density innersoles . for 1 year . Dx:hammerotes and calloused lesions for . 12/17/2014 Not-Taking Ammonium Lactate 12 % 1 application Externally Twice a day for 30 days Not-Taking CeleBREX 200 MG Orally Not- Taking Ciclopirox Olamine 0.77 % 1 application Externally Twice a day for 30 days 08/25/2021 Not-Taking Januvia 50 MG 1 tablet Orally Once a day Not-Taking Betadine 10 % Apply a light layer to affected area on foot as needed Externally 3 time(s) a day for 10 days 11/19/2023 Active Extra Depth Orthopedic Shoes (1 Pair) with Customized Heat Molded Multidensity Innersoles (3 Pair) as directed Dx: NIDDM/Polyneuropathy (E11.42), Hammertoe Foot Deformity (M20.41,M20.42), Preulcerative Skin Lesion(s) (L85.1 10/25/2023 Active Naftifine HCl 2 % 1 application Externally Apply a thin layer to skin, even between toes, twice a day for 30 days Active Ciclopirox Olamine 0.77 % 1 application to affected area Externally Twice a day for 30 days 09/10/2024 Active Trulicity 0.75 MG/0.5ML as directed Subcutaneous Not-Taking Ciclopirox Olamine 0.77 % 1 application Externally Twice a day for 30 days 09/18/2019 Not-Taking Iron 325 (65 Fe) MG 1 tablet Orally Once a day Active Extra Depth Orthopedic Shoes (1 Pair) with Customized Heat Molded Multidensity Innersoles (3 Pair) as directed Dx: NIDDM/Polyneuropathy (E11.42), Hammertoe Foot Deformity (M20.41,M20.42), Preulcerative Skin Lesion(s) (L85.1 01/11/2017 Not-Taking Spironolactone Activ e Cipro 500 MG 1 tablet Orally ever y 12 hrs for 10 day(s) 12/22/2019 Not-Taking hydroCHLOROthiazide Active Cipro 500 MG 1 tablet Orally ever y 12 hrs for 10 day(s) 01/19/2020 Not-Taking Metoprolol & Diet Manage Prod Active Bactrim DS 800-160 MG 1 tablet Orally Tw ice a day for 10 day(s) 12/18/2019 Not-Taking hydrALAZINE HCl 75mg 1 tablet Orally 3 times a day Active sAXagliptin HCl Not- Taking Naproxen 500 MG 1 tablet as needed Orally every 12 hrs Active Bactrim DS 800-160 MG 1 tablet Orally Tw ice a day for 10 day(s) 03/19/2020 Not-Taking Losartan Potassium A ctive traMADol HCl Not-Erick ing metFORMIN HCl Active Alogliptin Benzoate 25 MG Orally Not-Taking Ozempic Active Rosuvastatin Calcium Active Tacrolimus 0.1 % 1 application Externally Once a day Active Mupirocin 2 % 1 application Externally Once a day for 30 days 11/24/2021 Not-Taking Immunizations Vaccine Route Administration Date Status Comme nts COVID-19 Moderna Vaccine Unknown 11/18/2020 Administere d 1st dose 08/14/2020 Influenza Unknown 03/23/2016 Pending Influenza Unknown 02/12/2017 Administered Influenza Unknown 03/28/2018 Administered Influenza Unknown 03/28/2019 Administered Influenza Unknown 02/11/2020 Administered Influenza Unknown 06/28/2022 Administered Social History Tobacco Use: Social History Observation Description Date Details (start date - stop date) Never Smoker NA - NA Tobacco use other than smoking: Question Answer Notes Are you an other tobacco user? No Tobacco Control (Standard) Question Answer Notes Tobacco use: Nonsmoker Additional Findings: Tobacco non-user Current no nsmoker AUDIT-C (Standard) Question Answer Notes Did you have a drink containing alcohol in the p ast year? No Points 0 Interpretation Negative Problems Problem Type SNOMED Code ICD Code Onset Dates Problem Status W/U Status Risk Notes Problem Acquired hammer toe of right foot (457734781620775 5) Other hammer toe(s) (acquired), right foot (M20.41) Active confirmed Problem Acquired hammer toe of left foot (652557536207120 3) Other hammer toe(s) (acquired), left foot (M20.42) Active confirmed Problem Ulcer of toe (802328195) Non-pressure chronic ulcer of other part of left foot limited to breakdown of skin (L97.521) Active confirmed Problem Nonstageable pressure ulcer of left foot (098302690150435 05) 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) Active confirmed Problem Ulcer of heel (870645911) 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) Active confirmed Problem Polyneuropathy due to type 2 diabetes mellitus (715336987) Type 2 diabetes mellitus with diabetic polyneuropathy (E11.42) Active confirmed Problem Ulcer of heel (567651095) Neuropathic ulcer of right heel, limited to breakdown of skin (L97.411) Active confirmed Response to treatment Vital Signs Blood pressure diastolic 78 mm Hg 09/01/2024 Height 6 ft in 09/01/2024 Blood pressure systolic 121 mm Hg 09/01/2024 Weight 212 lbs 09/01/2024 BMI 28.75 kg/m2 09/01/2024 Procedures Procedure Date Ordered Date Performed Result Body Sit e 61988-GBPUNMB NAIL, 6 OR MORE 10/25/2023 N/A 45225-GQQT SKIN LESIONS, OVER 4 10/25/2023 N/A 11632-VBIFZTM NAIL, 6 OR MORE 02/14/2024 N/A 41982- Debride <25 sq cm 02/14/2024 N/A 89647-NJUJ SKIN LESIONS, OVER 4 02/14/2024 N/A 77851-YIVORKV NAIL, 6 OR MORE 06/02/2024 N/A 83578-AQPP SKIN LESIONS, OVER 4 06/02/2024 N/A 62993-RVVVSTP NAIL, 6 OR MORE 09/01/2024 N/A 42116-DNOB SKIN LESIONS, OVER 4 09/01/2024 N/A Encounters Encounter Location Date Provider Diagnosis [address] [address] 10/25/2023 Sussy Black Type 2 diabetes mellitus with diabetic polyneuropathy E11.42 ; Tinea unguium B35.1 ; Other hammer toe(s) (acquired), left foot M20.42 and Other hammer toe(s) (acquired), right foot M20.[address] [address] 11/19/2023 Sussy Black 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 and Type 2 diabetes mellitus with diabetic polyneuropathy E11.[address] [address] 02/14/2024 Sussy Black 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 ; Other hammer toe(s) (acquired), right foot M20.41 ; Type 2 diabetes mellitus with diabetic polyneuropathy E11.42 ; Tinea unguium B35.1 and Other hammer toe(s) (acquired), left foot M20.[address] [address] 06/02/2024 Sussy Black Type 2 diabetes mellitus with diabetic polyneuropathy E11.42 and Tinea unguium B35.[address] [facility] [address] 09/01/2024 Sussy Lowery Type 2 diabetes mellitus with diabetic polyneuropathy E11.42 ; Tinea unguium B35.1 and Tinea pedis of both feet B35.[address] [address] 11/19/2023 Sussyjesus Lowery [facility] [address] 06/03/2024 [facility] [address] 08/26/2024 [facility] [address] 09/10/2024 Sussy Lowery Assessments Encounter Date Diagnosis (ICD Code) Assessment Notes Treatment Notes Treatment Clinical Notes Section Notes 10/25/2023 Type 2 diabetes mellitus with diabetic polyneuropathy (ICD-10 - E11.42) 11/19/2023 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 breakdown of skin (ICD-10 - L97.421) [facility] center 11/19/2023 Type 2 diabetes mellitus with diabetic polyneuropathy (ICD-10 - E11.42) 02/14/2024 Other hammer toe(s) (acquired), right foot (ICD-10 - M20.41) Patient Educated with: DIABETIC FOOT CARE INSTRUCTIONS. pdf (DIABETIC FOOT CARE INSTRUCTIONS. pdf) 02/14/2024 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 breakdown of skin (ICD-10 - L97.421) 06/02/2024 Tinea unguium (ICD-10 - B35.1) 06/02/2024 Type 2 diabetes mellitus with diabetic polyneuropathy (ICD-10 - E11.42) 09/01/2024 Type 2 diabetes mellitus with diabetic polyneuropathy (ICD-10 - E11.42) 09/01/2024 Tinea unguium (ICD-10 - B35.1) 02/14/2024 Type 2 diabetes mellitus with diabetic polyneuropathy (ICD-10 - E11.42) 10/25/2023 Tinea unguium (ICD-10 - B35.1) 10/25/2023 Other hammer toe(s) (acquired), left foot (ICD-10 - M20.42) 02/14/2024 Tinea unguium (ICD-10 - B35.1) 09/01/2024 Tinea pedis of both feet (ICD-10 - B35.3) 02/14/2024 Other hammer toe(s) (acquired), left foot (ICD-10 - M20.42) 10/25/2023 Other hammer toe(s) (acquired), right foot (ICD-10 - M20.41) Patient Educated with: DIABETIC FOOT CARE INSTRUCTIONS. pdf (DIABETIC FOOT CARE INSTRUCTIONS. pdf) 06/02/2024 Other Plan Of Treatment Pending Test Test Name Order Date *Wound Culture 12/18/2019 *Wound Culture 11/24/2021 92624-NBHRPVD NAIL, 6 OR MORE 08/25/2021 40506-YOVOHVX NAIL, 6 OR MORE 12/18/2019 98619-XMFJVLF NAIL, 6 OR MORE 11/24/2021 01923-LAXYFMP NAIL, 6 OR MORE 02/23/2022 97188-GTPENVV NAIL, 6 OR MORE 06/08/2022 16692-VJQGNZR NAIL, 6 OR MORE 09/11/2022 42615-EIVTABX NAIL, 6 OR MORE 12/11/2022 45365-ZXWNUWC NAIL, 6 OR MORE 09/18/2019 06937-KVXITGQ NAIL, 6 OR MORE 02/23/2020 97023-AMFEEHD NAIL, 6 OR MORE 05/13/2020 45186-XRGHZUB NAIL, 6 OR MORE 08/12/2020 01929-TLBHYAJ NAIL, 6 OR MORE 11/18/2020 10463-DZBSDTO NAIL, 6 OR MORE 02/17/2021 38445-DKSVISE NAIL, 6 OR MORE 03/15/2023 83698-BTIUHAJ NAIL, 6 OR MORE 06/21/2023 18374-JXMHCIP NAIL, 6 OR MORE 10/25/2023 90147-TNFPGMQ NAIL, 6 OR MORE 02/14/2024 78811-MWPMSXC NAIL, 6 OR MORE 06/02/2024 29316-WVNJWTF NAIL, 6 OR MORE 09/01/2024 46844-LOUDGPD NAIL, 6 OR MORE 03/06/2019 90837-RZHZIMB NAIL, 6 OR MORE 06/05/2019 43400-AWPOKUA NAIL, 6 OR MORE 02/21/2018 78393-YYGSLMW NAIL, 6 OR MORE 05/30/2018 99228-ZYXAAEK NAIL, 6 OR MORE 08/29/2018 53832-PWSLMTA NAIL, 6 OR MORE 12/05/2018 89179-OKUQPWS NAIL, 6 OR MORE 12/22/2015 28203-ZLOKQVD NAIL, 6 OR MORE 03/23/2016 80768-OPHBVXX NAIL, 6 OR MORE 06/22/2016 56313-ITFDMWQ NAIL, 6 OR MORE 10/05/2016 98054-AIOHOXK NAIL, 6 OR MORE 01/04/2017 26558-KTKUOAG NAIL, 6 OR MORE 05/10/2017 05701-TJMQKMG NAIL, 6 OR MORE 08/09/2017 55788-KYVECQW NAIL, 6 OR MORE 11/23/2017 49617-XEIKRHT NAIL, 6 OR MORE 04/17/2011 36303-IEUIQKC NAIL, 6 OR MORE 07/20/2011 91334-CCUBTEZ NAIL, 6 OR MORE 08/17/2011 01497-QLBYCED NAIL, 6 OR MORE 09/19/2011 77426-RVEPBRZ NAIL, 6 OR MORE 12/25/2011 78811-EUAWAOW NAIL, 6 OR MORE 03/13/2012 48569-MOXDAPG NAIL, 6 OR MORE 06/19/2012 95810-JIOSRZN NAIL, 6 OR MORE 09/16/2012 12042-QZYJBZX NAIL, 6 OR MORE 12/04/2012 95818-LZHNBOJ NAIL, 6 OR MORE 03/12/2013 32652-HFFDLFD NAIL, 6 OR MORE 06/18/2013 42549-ABIJWVP NAIL, 6 OR MORE 09/18/2013 38574-PGEQGEU NAIL, 6 OR MORE 12/18/2013 56417-BSQDTCG NAIL, 6 OR MORE 03/19/2014 59114-CXBHPOE NAIL, 6 OR MORE 09/17/2014 88275-QTWYOVN NAIL, 6 OR MORE 12/17/2014 55649-ULGEXSA NAIL, 6 OR MORE 06/18/2014 24419-XDQMHQX NAIL, 6 OR MORE 03/24/2015 23349-PYFGZNT NAIL, 6 OR MORE 06/17/2015 07709-QGYNPYV NAIL, 6 OR MORE 09/16/2015 88413-Yondtuhz Plate 06/18/2014 96590-Bbiksyei Plate 12/17/2014 66085-Csgpyxqa Plate 12/18/2013 25941-Salulnyk Plate 09/18/2013 87235-Uvjuvtbg Plate 03/12/2013 87215-Yuvhjqwb Plate 01/04/2017 17316-Bhmaohvi Plate 06/21/2023 45071- Debride <25 sq cm 02/14/2024 40556- Debride <25 sq cm 08/25/2021 03994- Debride <25 sq cm 08/12/2020 29089- Debride <25 sq cm 04/05/2020 19705- Debride <25 sq cm 05/13/2020 30222- Debride <25 sq cm 02/23/2020 21676- Debride <25 sq cm 06/08/2022 53884- Debride <25 sq cm 11/24/2021 16439- Debride <25 sq cm 12/08/2021 01342- Debride <25 sq cm 01/05/2022 15859- Debride <25 sq cm 02/23/2022 13463- Debride <25 sq cm 12/04/2012 25596- Debride <25 sq cm 12/25/2011 42691- Debride <25 sq cm 09/19/2011 11580- Debride <25 sq cm 08/17/2011 85023- Debride <25 sq cm 07/20/2011 10375- Debride <25 sq cm 12/18/2013 17482- Debride <25 sq cm 03/19/2014 86140-BSFSQGB SKIN/TISSUE 12/18/2019 09147-ZOTMTQF SKIN/TISSUE 01/05/2020 83234-QTWMUOY SKIN/TISSUE 01/19/2020 61542-GTECBYR SKIN/TISSUE 02/05/2020 03367-PGEA SKIN LESIONS, OVER 4 09/18/19 20 13406-GPKZ SKIN LESIONS, OVER 4 06/05/19 20 22007-FQHQ SKIN LESIONS, OVER 4 03/06/20 19 15838-HSZN SKIN LESIONS, OVER 4 12/06/19 19 20400-LDWW SKIN LESIONS, OVER 4 08/30/19 19 26455-LNSM SKIN LESIONS, OVER 4 05/30/19 48830-IEXS SKIN LESIONS, OVER 4 01/05/20 06051-GLEK SKIN LESIONS, OVER 4 02/22/20 18 40562-OHED SKIN LESIONS, OVER 4 11/24/19 18 54272-BEGQ SKIN LESIONS, OVER 4 05/10/20 30714-CFXK SKIN LESIONS, OVER 4 08/10/19 18 89280-BUKF SKIN LESIONS, OVER 4 02/24/20 61003-UPPF SKIN LESIONS, OVER 4 11/25/19 95534-KKSI SKIN LESIONS, OVER 4 06/08/19 74746-RMRO SKIN LESIONS, OVER 4 09/12/19 76500-BPBC SKIN LESIONS, OVER 4 03/15/20 91131-YFBQ SKIN LESIONS, OVER 4 12/12/19 28881-JPRM SKIN LESIONS, OVER 4 02/23/20 73713-KRLO SKIN LESIONS, OVER 4 12/18/19 85650-SWKP SKIN LESIONS, OVER 4 05/13/20 26336-FIQM SKIN LESIONS, OVER 4 08/13/19 99230-SWWD SKIN LESIONS, OVER 4 11/19/19 89990-OJCH SKIN LESIONS, OVER 4 08/26/19 85869-JWVE SKIN LESIONS, OVER 4 02/18/20 56600-KQPA SKIN LESIONS, OVER 4 02/14/20 24 44284-IEUI SKIN LESIONS, OVER 4 06/02/19 03130-MTBQ SKIN LESIONS, OVER 4 06/21/19 47726-ZFLE SKIN LESIONS, OVER 4 10/25/19 24 35601-TPLH SKIN LESIONS, OVER 4 09/02/19 05901-ABZY SKIN LESIONS, 2 TO 4 06/22/19 17 15034-KPTH SKIN LESIONS, 2 TO 4 10/06/19 17 55612-HGDI SKIN LESIONS, 2 TO 4 03/23/20 16 17518-UZKJ SKIN LESIONS, 2 TO 4 12/22/19 16 02965-THTU SKIN LESIONS, 2 TO 4 12/18/19 15 70911-XHOY SKIN LESIONS, 2 TO 4 03/24/20 15 24408-UXYP SKIN LESIONS, 2 TO 4 09/16/19 16 22635-CUYP SKIN LESIONS, 2 TO 4 06/17/19 16 Next Appt Details Provider Name:Sussy Lowery , 12/11/2024 03:00:00 PM, [address] [facility], [place], [address], Insurance Providers Payer Name Payer Address Payer Phone Subscriber Number Group Number Insured Name Patient Relationship to Insured Coverage Start Date Coverage End Date Medicare [employer] [address] [place] [address] [id number] Tobin Bey Self - patient is the insured AARP Secondary to Medicare [address] [place] [address] [id number] Tobin Bey Self - patient is the insured Medical (General) History Medical History History ICD Code reflux mumps measles chicken pox hypertension diabetes mellitus Macular degeneration Surgical History Surgery Date(Month/Year) cataract removal left total hip replacement 02/23/2015 R shoulder replacement 03/27/2017 Hospitalization History Reason Date(Month/Year) leg infection 08/19
--- OUTSIDE RECORDS SUMMARY | 2024-09-22 12:09 | XMS_ITS | Clinical Summary ---
Author Organization [address] Address [address] [place] [phone] Phone Care Team Providers Care Heat And Frost Insulator Name Role Phone Jagjit Hancock Primary Care Provider Gigi price Encounters Date Type Department Care Team Description 08/16/2024 Lab Requisition [facility] [address] [place] [phone] Rebecca Gomez MD Essential (primary) hypertension; Anemia, unspecified; Cellulitis, unspecified; Type 2 diabetes mellitus without complications (CMS/HCC V24, CMS/[facility] V28) 08/08/2024 Lab Requisition [facility] [address] [place] [phone] Rebecca Gomez MD Essential (primary) hypertension; Anemia, unspecified; Cellulitis, unspecified; Type 2 diabetes mellitus without complications (CMS/HCC V24, CMS/[facility] V28) 08/03/2024 Lab Requisition [facility] Main Lab [address] [place] [phone] Mary Cotter PA Diarrhea, unspecified 08/02/2024 Lab Requisition [facility] [address] [place] [phone] Rebecca Gomez MD Essential (primary) hypertension; Anemia, unspecified; Cellulitis, unspecified; Type 2 diabetes mellitus without complications (CMS/[facility] V24, CMS/[facility] V28) 07/26/2024 Lab Requisition [facility] [address] [place] [phone] Rebecca Gomez MD Essential (primary) hypertension; Anemia, unspecified; Cellulitis, unspecified; Type 2 diabetes mellitus without complications ([facility] V24, [facility] V28) 07/23/2024 Lab Requisition [facility] Main Lab [address] [facility] [place] [phone] Jagjit Hancock PA Hyperlipidemia, unspecified; Essential (primary) hypertension; Anemia, unspecified; Type 2 diabetes mellitus without complications ([facility] V24, [facility] V28); Vitamin D deficiency, unspecified; Cellulitis, unspecified [...] Diabetes: Annual Urine Albumin-Creatinine Ratio (uACR) 07/23/2024 COVID-19 Vaccine ( season) 2024 03/06/2024, 04/13/2023, 05/02/2022, Additional history exists Diabetes: Blood Sugar Control Test (HGBA1C) 01/20/2025 07/23/2024 Diabetes: Annual GFR (Glomerular Filtration Rate) 08/18/2025 08/18/2024, 08/11/2024, 08/04/2024, Additional history exists Hypertension/CHF/CAD Annual BMP Blood Test 08/18/2025 08/18/2024, 08/11/2024, 08/04/2024, Additional history exists DTaP,Tdap,and Td Vaccines (5 - Td or Tdap) 12/09/2027 12/08/2017, 11/08/2017, 11/08/2017, Additional history exists Cholesterol Screening (Lipid Panel) 07/23/2029 07/23/2024 Zoster Vaccines Completed 02/07/2018, 10/26, 10/14/2013 Influenza Vaccine Completed 03/06/2024, , 03/01/2021, Additional [...] LAB HEMETOLOGY METHOD 08/18/2024 11:59 AM T [facility] Hematocrit 41.1(L) 42.0 [...] K/mcL LAB HEMETOLOGY METHOD 08/18/2024 11:59 AM T [facility] Blood Venous blood specimen / Unknown Venipuncture / Unknown 08/18/2024 7:18 AM EDT 08/18/2024 11:03 AM EDT us Rebecca Gomez MD LAB BLOOD ORDERABLES Final Resul t [facility] [address] [place] [address], * (ABNORMAL) Comprehensive metabolic panel (08/18/2024 7:18 AM EDT) Only the most recent of5 resultswithin the time period is included. Sodium 132(L) 133 - 145 mmol/L LAB CHEMISTRY METHOD 08/18/2024 12:46 PM [facility] Potassium 4.4 3.5 - 5.5 mmol/L LAB CHEMISTRY METHOD 08/18/2024 12:46 PM [facility] Chloride 95(L) 96 - 110 mmol/L LAB CHEMISTRY METHOD 08/18/2024 12:46 PM [facility] CO2 27 21 - 32 mmol/L LAB CHEMISTRY METHOD 08/18/2024 12:46 PM [facility] Anion Gap 10 3 - 11 LAB CHEMISTRY METHOD 08/18/2024 12:46 PM [facility] Glucose 88 70 - 100 mg/dL LAB CHEMISTRY METHOD 08/18/2024 12:46 PM [facility] BUN 34(H) 5 - 25 mg/dL LAB CHEMISTRY METHOD 08/18/2024 12:46 PM [facility] Creatinine 1.19 0.70 - 1.30 mg/dL LAB CHEMISTRY METHOD 08/18/2024 12:46 PM [facility] eGFR 63 >=60 mL/min/1. 73m2 LAB CHEMISTRY METHOD 08/18/2024 12:46 PM [facility] Comment:Calculation based on the??Chronic Kidney Disease Epidemiology Collaboration (CKD-EPI) equation refit??without adjustment for race. BUN/Creatinine Ratio 28.6 LAB CHEMISTRY METHOD 08/18/2024 12:46 PM [facility] Calcium 9.7 8.5 - 10.5 mg/dL LAB CHEMISTRY METHOD 08/18/2024 12:46 PM [facility] AST (SGOT) 30 10 - 42 unit/L LAB CHEMISTRY METHOD 08/18/2024 12:46 PM [facility] ALT (SGPT) 34 10 - 60 unit/L LAB CHEMISTRY METHOD 08/18/2024 12:46 PM EDT [facility] Alkaline Phosphatase 93 42 - 121 unit/L LAB CHEMISTRY METHOD 08/18/2024 12:46 PM EDT [facility] Total Protein 7.2 6.0 - 8.0 g/dL LAB CHEMISTRY METHOD 08/18/2024 12:46 PM EDT [facility] Albumin 3.4 3.2 - [...] ORDERABLES Final Resul t Performing Organization Address City/[facility]/ZIP Co de Phone Number [facility] [address] [place] [address], [place] [phone] * (ABNORMAL) Clostridium difficile molecular study (08/02/2024 7:40 PM EST) Pathologist [facility] [place] Clostridium difficile PCR Positive (AA) Negative LAB MICROBIOLOGY METHOD 08/03/2024 12:41 PM EDT [facility] Comment: CRITICAL RESULT POSITIVE FOR TOXIN PRODUCING CLOSTRIDIOIDES DIFFICILE, NO ADDITIONAL TESTING IS NECESSARY. REPEAT SAMPLES SHOULD NOT BE SUBMITTED FOR TEST OF CURE. Stool Rectum structure / Unknown Non-blood Collection / Unknown 08/02/2024 7:40 PM EST 08/03/2024 11:45 AM EDT us Mary JOHNSON LAB MICROBIOLOGY - GENERAL ORD ERABLES Final Result Performing Organization Address City/[facility]/ZIP Co de Phone Number [facility] [address] [place] [address], [place] [phone] * Clostridium difficile toxin (08/02/2024 7:40 PM EST) C difficile Toxins A+B, EIA 08/03/2024 11:45 AM EDT [facility] Comment:Refer to C. difficil e PCR assay for results. Stool Rectum structure / Unknown Non-blood Collection / Unknown 08/02/2024 7:40 PM EST 08/03/2024 10:19 AM EDT us Mary JOHNSON LAB MICROBIOLOGY - GENERAL ORD ERABLES Final Result [facility] [address] [place] [address], [place] [phone] * Lipid panel with reflex to direct LDL (07/23/2024 8:56 AM EST) Cholesterol 117 0 - 200 mg/dL LAB CHEMISTRY METHOD 07/23/2024 1:58 PM [facility] Triglycerides 136 0 - 150 mg/dL LAB CHEMISTRY METHOD 07/23/2024 1:58 PM [facility] HDL 53 >=40 mg/dL LAB CHEMISTRY METHOD 07/23/2024 1:58 PM [facility] LDL Calculated 37 0 - 100 mg/dL LAB CHEMISTRY METHOD 07/23/2024 1:58 PM [facility] VLDL Cholesterol Quique 27.2 mg/dL LAB CHEMISTRY METHOD 07/23/2024 1:58 PM [facility] Non HDL Chol. (LDL+VLDL) 64 <145 mg/dL LAB CHEMISTRY METHOD 07/23/2024 1:58 PM [facility] Chol/HDL Ratio 2.2 0.0 - 4.4 LAB CHEMISTRY METHOD 07/23/2024 1:58 PM [facility] Blood Venous blood specimen / Unknown Venipuncture / Unknown 07/23/2024 8:56 AM EST 07/23/2024 10:27 AM EST Jagjit JOHNSON LAB BLOOD ORDERABLES Final Re sult Performing Organization Address [facility]/ZIP Co de Phone Number [facility] [address] [place] [address], [place] [phone] * Vitamin D 25 hydroxy (07/23/2024 8:56 AM EST) Vit D, 25-Hydroxy 41.0 30.0 - 80.0 ng/mL LAB CHEMISTRY METHOD 07/23/2024 1:34 PM EST [facility] Blood Venous blood specimen / Unknown Venipuncture / Unknown 07/23/2024 8:56 AM EST 07/23/2024 10:27 AM EST Jagjit JOHNSON LAB BLOOD ORDERABLES Final Re sult Performing Organization Address [facility] Co de Phone Number [facility] [address] [place] [address], [place] [phone] * (ABNORMAL) Thyroid stimulating hormone (07/23/2024 8:56 AM EST) [facility] TSH 4.10(H) 0.40 - 4.00 mcIU/mL LAB CHEMISTRY METHOD 07/23/2024 1:35 PM EST [facility] Blood Venous blood specimen / Unknown Venipuncture / Unknown 07/23/2024 8:56 AM EST 07/23/2024 10:27 AM EST Jagjit JOHNSON LAB BLOOD ORDERABLES Final Re sult Performing Organization Address City/[facility]/ZIP Co de Phone Number [facility] [address] [place] [address], [place] [phone] * (ABNORMAL) Hemoglobin A1c (07/23/2024 8:56 AM EST) Pathologist [facility] [place] Hemoglobin A1C 6.6(H) <6.5 % LAB CHEMISTRY METHOD 07/23/2024 9:50 PM EST [facility] Mean Bld Glu Estim. 143 mg/dL LAB CHEMISTRY METHOD 07/23/2024 9:50 PM EST [facility] Blood Venous blood specimen / Unknown Venipuncture / Unknown 07/23/2024 8:56 AM EST 07/23/2024 10:27 AM EST Jagjit JOHNSON LAB BLOOD ORDERABLES Final Re sult Performing Organization Address [facility]/ZIP Co de Phone Number [facility] [address] [place] [address], [place] [phone] * (ABNORMAL) Folate (07/23/2024 8:56 AM EST) Folate 17.7(H) 2.8 - 17.0 ng/ml LAB CHEMISTRY METHOD 07/23/2024 1:58 PM EST [facility] Blood Venous blood specimen / Unknown Venipuncture / Unknown 07/23/2024 8:56 AM EST 07/23/2024 10:27 AM EST Jagjit JOHNSON LAB BLOOD ORDERABLES Final Re sult Performing Organization Address [facility]/ZIP Co de Phone Number [facility] [address] [place] [address], [place] [phone] * Vitamin B12 (07/23/2024 8:56 AM EST) Vitamin B-12 761 250 - 900 pcg/mL LAB CHEMISTRY METHOD 07/23/2024 1:58 PM EST [facility] Blood Venous blood specimen / Unknown Venipuncture / Unknown 07/23/2024 8:56 AM EST 07/23/2024 10:27 AM EST Jagjit JOHNSON LAB BLOOD ORDERABLES Final Re sult [facility] [address] [place] [address], [place] [phone] from Last 3 Months Insurance MEDICARE [facility] Care Teams [employer] Insulator Relationship Specialty Start Date End Date Jagjit Hancock PA [address] [place] [address] PCP - General Physician Retread Technician 07/23/24
--- OUTSIDE RECORDS SUMMARY | 2024-09-22 12:09 | XMS_ITS | Continuity of Care Document ---
Author Name [employer] Organization [employer] Care Team Providers Care Spectrographic Analyst Name Role Phone [employer] Unavailable Unavailable Problems Combined list of problems [...] Art SANTAMARIA Comment: Right shoulder replacement 2016 [facility] [place] [facility] At risk of pressure ulcer (SNOMED CT 363157901) Active Condition [facility] DM - Diabetes mellitus (SNOMED CT 55961935) Active Condition [place] HTN - Hypertension (SNOMED CT 94752626) Active Condition [place] Hyperlipidemia (SCT 52272354) [facility] deficiency [facility] Active Condition [facility] [place] [facility] Osteoarthritis Active Condition [facility] Pain in right hip joint Active Condition [place] Polyp of colon Active Condition September 262013 Entered By: LIA ABRAHAM Comment: 2012 2 polypsSep 2017 Entered By: Art SANTAMARIA Comment: 06/13 1 polypApr 2020 Entered By: Art SANTAMARIA Comment: 10/2019 EGD and colonic polyp-see note 08/27/20-due 11/17 colon [place] Postsurgical Status of Cataract Extraction Active Condition Sep 10, 2012 Entered By: LIA ABRAHAM Comment: alondra [place] Pressure injury of buttock Active Condition Aug 15, 2023 Entered By: KEO ANAYA Comment: Managed by MYNOR Acevedo [place] Psoriasis Active Condition [place] Diagnosis: ICD-10-CM L03.116 Cellulitis of left lower limb Active Diagnosis [facility] Diagnosis: ICD-10-CM E11.9 Type 2 diabetes mellitus without complications Active Diagnosis [place] Diagnosis: ICD-10-CM E11.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 Medication Details Route Status Patient Instructions Prescription Expires Prescription Number Last Dispense Date Ordering Provider Order Date Order Qty Source ASPIRIN 81MG TAB,EC TAKE ONE TABLET BY MOUTH DAILY ORAL ACTIVE JOSH ABRAHAM 2013 [facility] CICLOPIROX OLAMINE 0.77% CREAM,TOP APPLY A TOPICALL Y TWICE DAILY TOPICA L ACTIVE JOSH ABRAHAM 2012 [place] CYANOCOBALA MIN 1000MCG TAB TAKE ONE TABLET BY MOUTH DAILY ORAL ACTIVE JOSH ABRAHAM 2013 [facility] DICLOFENAC NA 1% GEL,TOP APPLY 2 GRAMS TOPICALL Y FOUR TIMES DAILY NEEDED FOR OSTEOART HRITIS - USE DOSING CARD PROVIDED IN BOX TOPICA L ACTIVE 01/30/2025 [id number] 5 Frantz TRUJILLO A 2023 100 [place] DICLOFENAC NA 1% GEL,TOP APPLY 2 GRAMS TOPICALL Y FOUR TIMES DAILY NEEDED FOR OSTEOART HRITIS - USE DOSING CARD PROVIDED IN BOX [facility]/15/2024 [id number] KATIE ACEVEDO 2022 100 [place] FLUOCINONID E 0.05% CREAM,TOP APPLY A TOPICALL Y TWICE DAILY TOPICA L ACTIVE JOSH ABRAHAM 2012 [place] HYDROCHLORO THIAZIDE 25MG TAB TAKE ONE TABLET BY MOUTH DAILY TO PREVENT FLUID/CO NTROL BLOOD PRESSURE ORAL ACTIVE 01/30/2025 [id number] 5 Frantz TRUJILLO A 2023 90 [place] HYDROCHLORO THIAZIDE 25MG TAB TAKE ONE TABLET BY MOUTH DAILY TO PREVENT FLUID/CO NTROL BLOOD PRESSURE ORAL DISCONT INUED 02/15/2024 [id number] 4 KATIE ACEVEDO [place] S 2022 90 [place] LIDOCAINE 5% PATCH APPLY 1 PATCH TOPICALL Y ONCE DAILY NEEDED (LEAVE PATCH ON FOR 12 HOURS, THEN REMOVE PATCH) TOPICA L ACTIVE 01/30/2025 [id number] 5 Frantz TRUJILLO A 2023 30 [place] LIDOCAINE 5% PATCH APPLY 1 PATCH TOPICALL Y ONCE DAILY NEEDED (LEAVE PATCH ON FOR 12 HOURS, THEN REMOVE PATCH) TOPICA L DISCONT INUED 02/15/2024 [id number] ACEVEDO,KATIE CHESTER S 2022 30 [place] LORATADINE 10MG TAB TAKE ONE TABLET BY MOUTH DAILY ORAL ACTIVE JOSH ABRAHAM 2013 [place] LOSARTAN POTASSIUM 100MG TAB TAKE ONE TABLET BY MOUTH ONCE DAILY FOR BLOOD PRESSURE /HEART ORAL ACTIVE 01/30/2025 [id number] 4 Frantz TRUJILLO A 2023 90 [place] POTASSIUM 100MG TAB TAKE ONE TABLET BY MOUTH ONCE DAILY FOR BLOOD PRESSURE /HEART ORAL DISCONT INUED 02/15/2024 [id number] 4 KATIE ACVEEDO S 2022 90 [place] MAGNESIUM OXIDE TAB TAKE BY MOUTH ORAL ACTIVE ROWENA LAURENT 2018 [place] METFORMIN HCL 1000MG TAB TAKE ONE TABLET BY MOUTH TWICE DAILY FOR DIABETES ORAL ACTIVE 01/30/2025 [id number] 5 Frantz TRUJILLO A 2023 180 [place] METFORMIN HCL 1000MG TAB TAKE ONE TABLET BY MOUTH TWICE DAILY FOR DIABETES ORAL DISCONT INUED 02/15/2024 [id number] 4 KATIE ACEVEDO S 2022 180 [place] METOPROLOL TARTRATE 50MG TAB TAKE ONE TABLET BY MOUTH TWICE DAILY FOR BLOOD PRESSURE /HEART ORAL ACTIVE 06/25/2025 [id number] 5 Frantz TRUJILLO A 2024 180 [place] METOPROLOL TARTRATE 50MG TAB TAKE ONE TABLET BY MOUTH TWICE DAILY FOR BLOOD PRESSURE /HEART ORAL DISCONT INUED 09/26/2024 [id number] ALVARADO ANAYA 2023 180 [place] METOPROLOL TARTRATE 50MG TAB TAKE ONE TABLET BY MOUTH TWICE DAILY FOR BLOOD PRESSURE /HEART ORAL DISCONT INUED 01/16/2024 [id number] ACEVEDO,AD CHESTER S 2022 180 I[place] MULTIVITAMI NS W/MINERALS TAB TAKE ONE TABLET BY MOUTH DAILY ORAL ACTIVE JOSH ABRAHAM 2013 IELD OTHER CAP/TAB TAKE 1 APPLICAT ION topical ONCE DAILY NEEDED ACTIVE ROWENA LAURENT [place] I[place] ROSUVASTATI N CA 10MG TAB TAKE ONE-HALF TABLET BY MOUTH TWO TIMES A WEEK FOR CHOLESTE ROL ORAL ACTIVE 01/30/2025 [id number] Frantz TRUJILLO AVID A 2023 13 IELD ROSUVASTATI N CA 10MG TAB TAKE ONE-HALF TABLET BY MOUTH TWO TIMES A WEEK FOR CHOLESTE ROL ORAL DISCONT INUED 02/15/2024 [id number] ACEVEDO,AD CHESTER S 2022 13 IELD SEMAGLUTIDE 1MG/0.75ML INJ,SOLN,PE N,3ML INJECT 1MG SUBCUTAN EOUSLY ONCE A WEEK SUBCUT ANEOUS ACTIVE 06/25/2025 [id number] 5 Frantz TRUJILLO AVID A 2024 3 IELD SEMAGLUTIDE 1MG/0.75ML INJ,SOLN,PE N,3ML INJECT 1MG SUBCUTAN EOUSLY ONCE A WEEK SUBCUT ANEOUS DISCONT INUED 09/26/2024 [id number] 5 ALVARADO ANAYA 2023 3 IELD SEMAGLUTIDE 1MG/0.75ML INJ,SOLN,PE N,3ML INJECT 1MG SUBCUTAN EOUSLY ONCE A WEEK SUBCUT ANEOUS DISCONT INUED 05/11/2024 [id number] 4 ALVARADO ANAYA 2023 1 IELD SENNOSIDE 8.6MG (SENNA) TAB TAKE BY MOUTH DAILY ORAL ACTIVE JOSH ABRAHAM 2013 [facility] SPIRONOLACT ONE 25MG TAB TAKE TWO TABLETS BY MOUTH ONCE DAILY ORAL ACTIVE 01/30/2025 [id number] 4 TRUJILLOFarntz A 2023 180 [facility] SPIRONOLACT ONE 25MG TAB TAKE TWO TABLETS BY MOUTH DAILY [REPLACE S CHAPARRITALERRED NE] ORAL DISCONT INUED 02/15/2024 [id number] 4 KATIE ACEVEDO S 2022 180 [facility] VITAMIN D3 (CHOLECALCI FEROL) TAB TAKE BY MOUTH ORAL ACTIVE ROWENA LAURENT 2020 [facility] Immunizations Combined list of available immunizations from the Department of Defense and Veterans Affairs facilities. Immunization Series Date Given Administered By Site Reaction Lot Number CVX Code Drug Legal Writing Professor Status Comments Source COVID-19 (MODERNA), MRNA, LNP-S, PF, 50 MCG/0.5 ML (AGES 12+ YEARS) 2023 NORI HUGHES AXEL RIGHT DELTO ID [id number] 312 complet ed [facility] [place] [facility] INFLUENZA, HIGH-DOSE, TRIVALENT, PF 2023 NORI HUGHES AXEL LEFT DELTO ID [id number] A 135 complet ed [facility] [place] COVID-19 (MODERNA), MRNA, LNP-S, PF, 50 MCG/0.5 ML (AGES 12+ YEARS) 1 2022 312 complet ed HISTORICA L INFORMATI ON - FROM PATIENT'S WRITTEN RECORD, Lot#: [id number] Mfr: [employer] Expiratio n Date: 08/31/23 [facility] [place] [facility] [facility] INFLUENZA, HIGH-DOSE, QUADRIVALENT 2022 WEI OCHOA LEFT DELTO ID [id number] A 197 complet ed ADMINISTE [facility] AT [facility] COVID-19 (MODERNA), MRNA, LNP-S, BIVALENT BOOSTER, PF, 50 MCG/0.5 ML OR 25MCG/0.25 ML DOSE 2021 SHEREEN IVERSON LEFT DELTO ID [id number] 229 complet ed Booster for Series, ADMINISTE JOLANTA AT [place], [facility] COVID-19 (MODERNA), MRNA, LNP-S, PF, 100 MCG OR 50 MCG DOSE 3 2020 207 complet ed MOD; [id number]; 2 [facility] INFLUENZA VACCINE, QUADRIVALENT, ADJUVANTED 2020 205 complet ed [facility] COVID-19 (MODERNA), MRNA, LNP-S, PF, 100 MCG/0.5 ML DOSE 2 2020 207 complet ed MOD; [id number]; 1 [facility] COVID-19 (MODERNA), MRNA, LNP-S, PF, 100 MCG/0.5 ML DOSE 1 2020 207 complet ed MOD; [id number]; 1 [facility] INFLUENZA, UNSPECIFIED FORMULATION 2019 88 complet ed [facility] [place] INFLUENZA, SEASONAL, INJECTABLE 2018 141 complet ed [facility] [place] INFLUENZA, SEASONAL, INJECTABLE 2017 141 complet ed documenta tion influenza HD 03-21-18 Left deltoid [id number] exp 09-26-18 [facility] [place] ZOSTER RECOMBINANT 2 2017 187 complet ed [place] TDAP 2017 115 complet ed VA [...] CONJUGATE PCV 13 2015 133 complet ed [place] ZOSTER (HISTORICAL) 2013 121 complet ed [...] Jul 11, 2024 08:32 AM Reporting Lab: [facility] [place] [facility] [address] [address] Performing Lab: [facility] [address] [address] [place] MICROALBU MIN CREATININ E RATIO PANEL MICROALBUMI N/CREATININ E [MASS RATIO] IN URINE 6.9 mg/g 0 - 29.9 07/11 Specimen Type: URINE No comment entered. Ordering Provider: POPEYE TRUJILLO A Report Released Date/Time: Jul 11, 2024 08:32 AM Reporting Lab: [facility] [place] [facility] [address] [address] Performing Lab: [facility] [address] [address] [place] MICROALBU MIN CREATININ E RATIO PANEL MICROALBUMI N [MASS/VOLUM E] IN URINE 0.7 mg/dL 07/11 Specimen Type: URINE No comment entered. Ordering Provider: POPEYE TRUJILLO A Report Released Date/Time: Jul 11, 2024 08:32 AM Reporting Lab: [facility] [address] [address] Performing Lab: [facility] [address] [place] MICROALBU MIN CREATININ E RATIO PANEL CREATININE [MASS/VOLUM E] IN URINE 101.71 mg/dL 07/11 Specimen Type: URINE No comment entered. Ordering Provider: POPEYE TRUJILLO A Report Released Date/Time: Jul 11, 2024 08:32 AM Reporting Lab: [facility] [address] [address] Performing Lab: [facility] [address] [address] [place] TSH THYROTROPIN [UNITS/VOLU ME] IN SERUM OR PLASMA 4.62 u[IU]/ mL 0.35 - 5.00 07/11 Specimen Type: SERUM No comment entered. Ordering Provider: POPEYE TRUJILLO A Report Released Date/Time: Jul 11, 2024 08:32 AM Reporting Lab: [facility] [address] [address] Performing Lab: [facility] TRN [address] [address] [place] VITAMIN D (25-OH) 25-HYDROXYV ITAMIN D3 [MASS/VOLUM E] IN SERUM OR PLASMA 48 ng/mL 20 - 50 07/11 Specimen Type: SERUM No comment entered. Ordering Provider: POPEYE TRUJILLO A Report Released Date/Time: Jul 11, 2024 08:32 AM Reporting Lab: [facility] [address] [address] Performing Lab: [facility]N [facility] [address] [place] CBC LEUKOCYTES [#/VOLUME] IN BLOOD BY AUTOMATED COUNT 9.27 10*3/u L 4.50 - 11.00 07/11 Specimen Type: BLOOD No comment entered. Ordering Provider: POPEYE TRUJILLO A Report Released Date/Time: Jul 11, 2024 08:32 AM Reporting Lab: [facility] [address] [address] Performing Lab: [facility] [address] [address] [place] CBC ERYTHROCYTE S [#/VOLUME] IN BLOOD BY AUTOMATED COUNT 4.41 10*6/u L 4.23 - 5.66 07/11 Specimen Type: BLOOD No comment entered. Ordering Provider: POPEYE TRUJILLO A Report Released Date/Time: Jul 11, 2024 08:32 AM Reporting Lab: [address] [address] Performing Lab: [facility] [address] [address] [place] CBC HEMOGLOBIN [MASS/VOLUM E] IN BLOOD 12.3 g/dL 12.8 - 17 07/11 L Specimen Type: BLOOD No comment entered. Ordering Provider: POPEYE TRUJILLO A Report Released Date/Time: Jul 11, 2024 08:32 AM Reporting Lab: [facility] [address] [address] Performing Lab: [facility] [address] [address] [place] CBC HEMATOCRIT [VOLUME FRACTION] OF BLOOD BY AUTOMATED COUNT 37.7 39.2 - 50.4 07/11 L Specimen Type: BLOOD No comment entered. Ordering Provider: POPEYE TRUJILLO A Report Released Date/Time: Jul 11, 2024 08:32 AM Reporting Lab: [facility] [address] [address] Performing Lab: [facility] [address] [address] [place] CBC MCV [ENTITIC VOLUME] BY AUTOMATED COUNT 85.5 fL 82 - 99 07/11 Specimen Type: BLOOD No comment entered. Ordering Provider: POPEYE TRUJILLO A Report Released Date/Time: Jul 11, 2024 08:32 AM Reporting Lab: [facility]TRN [facility] [address] [address] Performing Lab: [facility] [address] [address] [place] CBC MCHC [MASS/VOLUM E] BY AUTOMATED COUNT 32.6 g/dL 30.8 - 35.1 07/11 Specimen Type: BLOOD No comment entered. Ordering Provider: POPEYE TRUJILLO A Report Released Date/Time: Jul 11, 2024 08:32 AM Reporting Lab: [facility]RJ[facility]ITALN [address] [address] Performing Lab: [address] [address] [place] CBC PLATELETS [#/VOLUME] IN BLOOD BY AUTOMATED COUNT 277 10*3/u L 140 - 360 07/11 Specimen Type: BLOOD No comment entered. Ordering Provider: POPEYE TRUJILLO A Report Released Date/Time: Jul 11, 2024 08:32 AM Reporting Lab: [facility]ITALRJ[facility]PITALN [facility] [address] [address] Performing Lab: [facility] [address] [address] [place] CBC ERYTHROCYTE DISTRIBUTIO N WIDTH [RATIO] BY AUTOMATED COUNT 13.8 12.0 - 16.0 07/11 Specimen Type: BLOOD No comment entered. Ordering Provider: POPEYE TRUJILLO A Report Released Date/Time: Jul 11, 2024 08:32 AM Reporting Lab: [facility]ITALRWO[facility]ENTERTRN [address] [address] Performing Lab: [facility]ITALRJACK [facility]OSPITALN [facility] [address] [place] CBC MCH [ENTITIC MASS] BY AUTOMATED COUNT 27.9 pg 26.2 - 32.6 07/11 Specimen Type: BLOOD No comment entered. Ordering Provider: POPEYE TRUJILLO A Report Released Date/Time: Jul 11, 2024 08:32 AM Reporting Lab: [facility] [address] [address] Performing Lab: [facility] [address] [address] [place] LIPID PANEL, NON FASTING CHOLESTEROL [MASS/VOLUM E] IN SERUM OR PLASMA 147 mg/dL 07/11 Specimen Type: SERUM No comment entered. Ordering Provider: POPEYE TRUJILLO A Report Released Date/Time: Jul 11, 2024 08:32 AM Reporting Lab: [address] [address] Performing Lab: [address] [address] [place] LIPID PANEL, NON FASTING TRIGLYCERID E [MASS/VOLUM E] IN SERUM OR PLASMA 96 mg/dL 0 - 150 07/11 Specimen Type: SERUM No comment entered. Ordering Provider: POPEYE TRUJILLO A Report Released Date/Time: Jul 11, 2024 08:32 AM Reporting Lab: [address] [address] Performing Lab: [facility] [address] [address] [place] LIPID PANEL, NON FASTING CHOLESTEROL IN LDL [MASS/VOLUM E] IN SERUM OR PLASMA BY CALCULATION 76 mg/dL 0 - 129 07/11 Specimen Type: SERUM No comment entered. Ordering Provider: POPEYE TRUJILLO A Report Released Date/Time: Jul 11, 2024 08:32 AM Reporting Lab: [address] [address] Performing Lab: [address] [address] [place] LIPID PANEL, NON FASTING CHOLESTEROL .TOTAL/CHOL ESTEROL IN HDL [MASS RATIO] IN SERUM OR PLASMA 2.8 07/11 Specimen Type: SERUM No comment entered. Ordering Provider: POPEYE TRUJILLO A Report Released Date/Time: Jul 11, 2024 08:32 AM Reporting Lab: [facility] [address] Performing Lab: [facility]ITALRJACK [facility]OSPITALN [facility]ITALUSETS [address] [address] [place] LIPID PANEL, NON FASTING CHOLESTEROL IN HDL [MASS/VOLUM E] IN SERUM OR PLASMA 52 mg/dL 40 - 60 07/11 Specimen Type: SERUM No comment entered. Ordering Provider: POPEYE TRUJILLO A Report Released Date/Time: Jul 11, 2024 08:32 AM Reporting Lab: [facility] [address] [address] Performing Lab: [facility] [address] [place] LIVER FUNCTION PROTEIN [MASS/VOLUM E] IN SERUM OR PLASMA 7.7 g/dL 6.0 - 8.3 07/11 Specimen Type: SERUM No comment entered. Ordering Provider: POPEYE TRUJILLO A Report Released Date/Time: Jul 11, 2024 08:32 AM Reporting Lab: [facility] [address] Performing Lab: [facility] [address] [place] LIVER FUNCTION ALBUMIN [MASS/VOLUM E] IN SERUM OR PLASMA 3.5 g/dL 3.5 - 5.0 07/11 Specimen Type: SERUM No comment entered. Ordering Provider: POPEYE TRUJILLO A Report Released Date/Time: Jul 11, 2024 08:32 AM Reporting Lab: [facility] [address] [address] Performing Lab: [facility] [address] [place] LIVER FUNCTION ALKALINE PHOSPHATASE [ENZYMATIC ACTIVITY/VO LUME] IN SERUM OR PLASMA 90 U/L 40 - 150 07/11 Specimen Type: SERUM No comment entered. Ordering Provider: POPEYE TRUJILLO A Report Released Date/Time: Jul 11, 2024 08:32 AM Reporting Lab: [facility]ITAL[facility]ETS [facility] [address] [address] Performing Lab: [facility]ITAL[facility]ETS [address] [address] [place] LIVER FUNCTION ASPARTATE AMINOTRANSF ERASE [ENZYMATIC ACTIVITY/VO LUME] IN SERUM OR PLASMA 17 U/L 5 - 34 07/11 Specimen Type: SERUM No comment entered. Ordering Provider: POPEYE TRUJILLO A Report Released Date/Time: Jul 11, 2024 08:32 AM Reporting Lab: [facility] [address] [address] Performing Lab: [facility] [address] [place] LIVER FUNCTION ALANINE AMINOTRANSF ERASE [ENZYMATIC ACTIVITY/VO LUME] IN SERUM OR PLASMA 12 U/L 07/11 Specimen Type: SERUM No comment entered. Ordering Provider: POPEYE TRUJILLO A Report Released Date/Time: Jul 11, 2024 08:32 AM Reporting Lab: [facility] [address] [address] Performing Lab: [facility] [address] [address] [place] LIVER FUNCTION BILIRUBIN.T OTAL [MASS/VOLUM E] IN SERUM OR PLASMA 0.3 mg/dL 0.2 - 1.2 07/11 Specimen Type: SERUM No comment entered. Ordering Provider: POPEYE TRUJILLO A Report Released Date/Time: Jul 11, 2024 08:32 AM Reporting Lab: [facility] [address] [address] Performing Lab: [facility] [address] [place] BASIC METABOLIC PANEL (non-fast ing) UREA NITROGEN [MASS/VOLUM E] IN SERUM OR PLASMA 20 mg/dL 7 - 25 07/11 Specimen Type: SERUM No comment entered. Ordering Provider: POPEYE TRUJILLO A Report Released Date/Time: Jul 11, 2024 08:32 AM Reporting Lab: [facility] [address] [address] Performing Lab: [address] [address] [place] BASIC METABOLIC PANEL (non-fast ing) GLUCOSE [MASS/VOLUM E] IN SERUM OR PLASMA 135 mg/dL 65 - 100 07/11 H Specimen Type: SERUM No comment entered. Ordering Provider: POPEYE TRUJILLO A Report Released Date/Time: Jul 11, 2024 08:32 AM Reporting Lab: [address] [address] Performing Lab: [address] [address] [place] BASIC METABOLIC PANEL (non-fast ing) SODIUM [MOLES/VOLU ME] IN SERUM OR PLASMA 138 mmol/L 135 - 145 07/11 Specimen Type: SERUM No comment entered. Ordering Provider: POPEYE TRUJILLO A Report Released Date/Time: Jul 11, 2024 08:32 AM Reporting Lab: [address] [address] Performing Lab: [address] [address] [place] BASIC METABOLIC PANEL (non-fast ing) POTASSIUM [MOLES/VOLU ME] IN SERUM OR PLASMA 3.8 mmol/L 3.5 - 5.0 07/11 Specimen Type: SERUM No comment entered. Ordering Provider: POPEYE TRUJILLO A Report Released Date/Time: Jul 11, 2024 08:32 AM Reporting Lab: [address] [address] Performing Lab: [address] [address] [place] BASIC METABOLIC PANEL (non-fast ing) CHLORIDE [MOLES/VOLU ME] IN SERUM OR PLASMA 100 mmol/L 100 - 110 07/11 Specimen Type: SERUM No comment entered. Ordering Provider: POPEYE TRUJILLO A Report Released Date/Time: Jul 11, 2024 08:32 AM Reporting Lab: [facility] [address] [address] Performing Lab: [facility] [address] [address] [place] BASIC METABOLIC PANEL (non-fast ing) CARBON DIOXIDE, TOTAL [MOLES/VOLU ME] IN SERUM OR PLASMA 28 meq/L 20 - 30 07/11 Specimen Type: SERUM No comment entered. Ordering Provider: POPEYE TRUJILLO A Report Released Date/Time: Jul 11, 2024 08:32 AM Reporting Lab: [facility] [address] [address] Performing Lab: [facility] [address] [address] [place] BASIC METABOLIC PANEL (non-fast ing) CREATININE [MASS/VOLUM E] IN SERUM OR PLASMA 1.07 mg/dL 0.50 - 1.40 07/11 Specimen Type: SERUM No comment entered. Ordering Provider: POPEYE TRUJILLO A Report Released Date/Time: Jul 11, 2024 08:32 AM Reporting Lab: [facility] [address] [address] Performing Lab: [facility] [address] [address] [place] BASIC METABOLIC PANEL (non-fast ing) GLOMERULAR FILTRATION RATE/1.73 SQ M.PREDICTED [VOLUME RATE/AREA] IN SERUM, PLASMA OR BLOOD BY CREATININE- BASED FORMULA (CKD-EPI 2020) 71 mL/min 60 07/11 Specimen Type: SERUM No comment entered. Ordering Provider: POPEYE TRUJILLO A Report Released Date/Time: Jul 11, 2024 08:32 AM Reporting Lab: [facility] [address] [address] Performing Lab: [address] [address] [place] HEMOGLOBI N A1C PANEL HEMOGLOBIN [...] Aug 15, 2023 02:27 PM Reporting Lab: [address] [address] Performing Lab: [address] [address] [place] MICROALBU MIN CREATININ E RATIO PANEL MICROALBUMI N/CREATININ E [MASS RATIO] IN URINE 10.2 mg/g 0 - 29.9 02/28 Specimen Type: URINE No comment entered. Ordering Provider: ISABEL ANAYA Report Released Date/Time: Aug 15, 2023 02:27 PM Reporting Lab: [address] [address] Performing Lab: [address] [address] [place] MICROALBU MIN CREATININ E RATIO PANEL MICROALBUMI N [MASS/VOLUM E] IN URINE 1.7 mg/dL 02/28 Specimen Type: URINE No comment entered. Ordering Provider: ISABEL ANAYA Report Released Date/Time: Aug 15, 2023 02:27 PM Reporting Lab: [address] [address] Performing Lab: [address] [address] [place] MICROALBU MIN CREATININ E RATIO PANEL CREATININE [MASS/VOLUM E] IN URINE 166.35 mg/dL 02/28 Specimen Type: URINE No comment entered. Ordering Provider: ISABEL ANAYA Report Released Date/Time: Aug 15, 2023 02:27 PM Reporting Lab: [facility] [place] [facility] [address] [address] Performing Lab: [facility] [place] [facility] [address] [address] [place] Vital Signs Combined list of inpatient and outpatient Vital Signs from Department of [facility] and [facility], ranging from 12 months to all on record, depending upon the facility. Vital Sign Value Date Comments Source SYSTOLIC BLOOD PRESSURE 124 07/17/2024 14:39:47 [place] DIASTOLIC BLOOD PRESSURE 84 07/17/2024 14:39:47 [place] PULSE OXIMETRY 99 07/17/2024 14:39:47 [place] WEIGHT 07/17/2024 14:39:47 [place] TEMPERATURE 97.6 07/17/2024 14:39:47 [place] PULSE 87 07/17/2024 14:39:47 [facility] SYSTOLIC BLOOD PRESSURE 128 03/06/2024 15:09:07 [place] DIASTOLIC BLOOD PRESSURE 74 03/06/2024 15:09:07 [place] PULSE OXIMETRY 98 03/06/2024 15:09:07 [place] WEIGHT 212 03/06/2024 15:09:07 [place] BMI 28 kg/m2 03/06/2024 15:09:07 [place] TEMPERATURE 97.6 03/06/2024 15:09:07 [place] PULSE 66 03/06/2024 15:09:07 [place] Encounters Combined list of: 1) Encounters from Department of Veterans Affairs facilities going backup to the last 18 months, not all [place] inpatient encounters are included; 2) Encounters from the Department of [facility] facilities going backup to 280 months. Location Location Details Encounter Type Encounter Number Reason For Visit Attending Provider ADM Date DC Date Status Disposition Source [facility] Outpatient Encounter [id number] 04/12 [facility] Outpatient Encounter [id number] 04/12 [facility] Encounter [id number] 04/13 [facility] Encounter [id number] 04/16 [facility] Out[facility] Encounter [id number] 05/08 [facility] Encounter [id number] 05/08 [facility] Encounter [id number] 05/22 [facility] Encounter [id number] 06/29 [facility] Encounter [id number] 07/19 [facility] Encounter [id number] 07/20 [facility] OFFICE O/P EST MOD 30 MIN [id number] Diagnos is: ICD-10- CM R60.9 Edema, unspeci fied ANAYA,VICT ORIA J 08/14 [place] [facility] [id number] 08/20 [facility] Encounter [id number] 09/25 [facility] Encounter [id number] 11/01 [facility] Encounter [id number] 11/06 [facility] Encounter [id number] 11/15 [facility] Encounter [id number] 11/17 [facility] Encounter [id number] 11/18 [facility] Out[facility] Encounter [id number] 11/18 [facility] Encounter [id number] 11/19 [facility] Encounter [id number] 11/21 [facility] Encounter [id number] 11/22 [facility] En[facility] [id number] 11/26 [facility] OFFICE O/P NEW LOW 30 MIN [id number] Diagnos is: ICD-10- CM 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 94 Diagnos is: ICD-10- CM E11.9 Type 2 diabete s mellitu s without complic ations NOÉ TRUJILLOD A 03/06 [place] [facility] ADMN SARSCOV2 VACC 1 DOSE [id number] 1. NOÉ TRUJILLO VID A 03/06 [facility] Outpatient Encounter [id number] 05/23 [facility] Outpatient Encounter [id number] 05/26 [facility] Outpatient Encounter [id number] 06/23 [facility] OFFICE O/P EST HI 40 MIN [id number] 1BY. 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 tis of left lower limb NOÉ TRUJILLO VID A 07/17 [place] [facility] Outpatient Encounter [id number] 07/17 [facility] Outpatient Encounter [id number] 07/17 [facility] Outpatient Encounter [id number] 07/17 [facility] Outpatient Encounter [id number] 07/21 [facility] Outpatient Encounter [id number] 07/29 [facility] Social History Combined list of available smoking, tobacco, and other social history from Department of Defense and Veterans Affairs facilities. Social History Type Response Date Comment Sour e Tobacco smoking status [facility] VA-TOBACCO NEVER USED 03/06/2024 [facility] History of tobacco use VA-TOBACCO NEVER USED 02/14/2023 [facility] History of tobacco use VA-TOBACCO NEVER USED 01/27/2022 [facility] History of tobacco use VA-TOBACCO NEVER USED 01/27/2021 [facility] History of tobacco use VA-TOBACCO NEVER USED [facility] History of tobacco use LIFETIME NON-TOBACCO USER 11/08/2017 [place] History of tobacco use LIFETIME NON-TOBACCO USER 11/08/2016 [place] History of tobacco use LIFETIME NON-TOBACCO USER 10/21/2015 [place] History of tobacco use LIFETIME NON-TOBACCO USER 09/10/2012 [place]
--- OUTSIDE RECORDS SUMMARY | 2024-09-22 12:09 | XMS_ITS | Encounter Summary ---
Author Organization [facility] Address [address] [place] [address] Care Team Providers Care Technical Project Lead Name Role Phone Jagjit Hancock Primary Care Provider Gigi price Encounter Details Date Type Department Care Team (Latest Contact Info) Description 08/02/2024 Lab Requisition [facility] - Main Lab [address] [place] [phone] Rebecca Gomez MD [address] [place] [phone] Essential (primary) hypertension; Anemia, unspecified; Cellulitis, unspecified; [...] mmol/L LAB CHEMISTRY METHOD 08/04/2024 12:15 PM [facility] Potassium 3.7 3.5 - 5.5 mmol/L LAB CHEMISTRY METHOD 08/04/2024 12:15 PM [facility] Chloride 97 96 - 110 mmol/L LAB CHEMISTRY METHOD 08/04/2024 12:15 PM [facility] CO2 24 21 - 32 mmol/L LAB CHEMISTRY METHOD 08/04/2024 12:15 PM [facility] Anion Gap 12(H) 3 - 11 LAB CHEMISTRY METHOD 08/04/2024 12:15 PM [facility] Glucose 93 70 - 100 mg/dL LAB CHEMISTRY METHOD 08/04/2024 12:15 PM [facility] BUN 36(H) 5 - 25 mg/dL LAB CHEMISTRY METHOD 08/04/2024 12:15 PM [facility] Creatinine 1.11 0.70 - 1.30 mg/dL LAB CHEMISTRY METHOD 08/04/2024 12:15 PM [facility] eGFR 68 >=60 mL/min/1. 73m2 LAB CHEMISTRY METHOD 08/04/2024 12:15 PM [facility] Comment:Calculation based on the??Chronic Kidney Disease Epidemiology Collaboration (CKD-EPI) equation refit??without adjustment for race. BUN/Creatinine Ratio 32.4 LAB CHEMISTRY METHOD 08/04/2024 12:15 PM [facility] Calcium 9.6 8.5 - 10.5 mg/dL LAB CHEMISTRY METHOD 08/04/2024 12:15 PM [facility] AST (SGOT) 18 10 - 42 unit/L LAB CHEMISTRY METHOD 08/04/2024 12:15 PM [facility] ALT (SGPT) 19 10 - 60 unit/L LAB CHEMISTRY METHOD 08/04/2024 12:[address] [facility] Alkaline Phosphatase 83 42 - 121 unit/L LAB CHEMISTRY METHOD 08/04/2024 12:[address] [facility] Total Protein 6.9 6.0 - 8.0 g/dL LAB CHEMISTRY METHOD 08/04/2024 12:[address] [facility] Albumin 3.3 3.2 - 5.0 g/dL LAB CHEMISTRY METHOD 08/04/2024 12:[address] [facility] Total Bilirubin 0.5 0.0 - 1.4 mg/dL LAB CHEMISTRY METHOD 08/04/2024 12:[address] [facility] Blood Venous blood specimen / Unknown Venipuncture / Unknown 08/04/2024 8:03 AM EDT 08/04/2024 10:52 AM EDT Rebecca Gomez MD LAB BLOOD ORDERABLES Final Resul t [facility] [address] [place] [address], * (ABNORMAL) Complete blood count (08/04/2024 8:03 AM EDT) WBC 6.9 4.8 - 10.8 K/mcL LAB HEMETOLOGY METHOD 08/04/2024 11:[address] [facility] RBC 4.60 4.50 - 5.50 M/mcL LAB HEMETOLOGY METHOD 08/04/2024 11:[address] [facility] Hemoglobin 12.8(L) 13.5 - 17.5 g/dL LAB HEMETOLOGY METHOD 08/04/2024 11:[address] [facility] Hematocrit 39.0(L) 42.0 - 54.0 % LAB HEMETOLOGY METHOD 08/04/2024 11:[address] [facility] MCV 85.2 79.0 - 98.0 FL LAB HEMETOLOGY METHOD 08/04/2024 11:[address] [facility] MCH 27.9 27.0 - 32.0 pcg LAB HEMETOLOGY METHOD 08/04/2024 11:[address] [facility] MCHC 32.8 32.0 - 37.0 g/dL LAB HEMETOLOGY METHOD 08/04/2024 11:[address] [facility] RDW 13.9 11.0 - 15.0 % LAB HEMETOLOGY METHOD 08/04/2024 11:[address] [facility] Platelets 281 130 - 400 K/mcL LAB HEMETOLOGY METHOD 08/04/2024 11:[address] [facility] MPV 9.3 7.0 - 11.0 FL LAB HEMETOLOGY METHOD 08/04/2024 11:[address] [facility] NRBC 0.0 <1.0 % LAB HEMETOLOGY METHOD 08/04/2024 11:[address] [facility] NRBC Absolute 0.00 <0.10 K/mcL LAB HEMETOLOGY METHOD 08/04/2024 11:[address] [facility] Blood Venous blood specimen / Unknown Venipuncture / Unknown 08/04/2024 8:03 AM EDT 08/04/2024 10:52 AM EDT us Rebecca Gomez MD LAB BLOOD ORDERABLES Final Resul t [facility] [address] [place] [address], documented in this encounter Visit Diagnoses Diagnosis [...] documented as of this encounter Care Teams Technical Project Lead Relationship Specialty Start Date End Date Jagjit Hancock PA [address] [place] [phone] PCP - General Physician Ceramist 07/23/24 documented as of this encounter
--- OUTSIDE RECORDS SUMMARY | 2024-09-22 12:09 | XMS_ITS | Encounter Summary ---
Author Organization [facility] Address [address] [place] [address] Care Team Providers Care Asphalt Tile Floor Layer Name Role Phone Jagjit Hancock Primary Care Provider Gigi price Encounter Details Date Type Department Care Team (Latest Contact Info) Description 08/08/2024 Lab Requisition [facility] - Main Lab [address] [place] [phone] Rebecca Gomez MD [address] [place] [phone] Essential (primary) hypertension; Anemia, unspecified; Cellulitis, unspecified; [...] Comprehensive metabolic panel (08/11/2024 6:40 AM EDT) [facility] Signature Sodium 134 133 - 145 mmol/L LAB CHEMISTRY METHOD 08/11/2024 11:47 AM [facility] Potassium 3.7 3.5 - 5.5 mmol/L LAB CHEMISTRY METHOD 08/11/2024 11:47 AM [facility] Chloride 96 96 - 110 mmol/L LAB CHEMISTRY METHOD 08/11/2024 11:47 AM [facility] CO2 26 21 - 32 mmol/L LAB CHEMISTRY METHOD 08/11/2024 11:47 AM [facility] Anion Gap 12(H) 3 - 11 LAB CHEMISTRY METHOD 08/11/2024 11:47 AM [facility] Glucose 94 70 - 100 mg/dL LAB CHEMISTRY METHOD 08/11/2024 11:47 AM [facility] BUN 28(H) 5 - 25 mg/dL LAB CHEMISTRY METHOD 08/11/2024 11:47 AM [facility] Creatinine 1.09 0.70 - 1.30 mg/dL LAB CHEMISTRY METHOD 08/11/2024 11:47 AM [facility] eGFR 70 >=60 mL/min/1. 73m2 LAB CHEMISTRY METHOD 08/11/2024 11:47 AM [facility] Comment:Calculation based on the??Chronic Kidney Disease Epidemiology Collaboration (CKD-EPI) equation refit??without adjustment for race. BUN/Creatinine Ratio 25.7 LAB CHEMISTRY METHOD 08/11/2024 11:47 AM [facility] Calcium 9.3 8.5 - 10.5 mg/dL LAB CHEMISTRY METHOD 08/11/2024 11:47 AM [facility] AST (SGOT) 24 10 - 42 unit/L LAB CHEMISTRY METHOD 08/11/2024 11:47 AM [facility] ALT (SGPT) 25 10 - 60 unit/L LAB CHEMISTRY METHOD 08/11/2024 11:47 AM EDT [facility] Alkaline Phosphatase 86 42 - 121 unit/L LAB CHEMISTRY METHOD 08/11/2024 11:47 AM EDT [facility] Total Protein 6.8 6.0 - 8.0 g/dL LAB CHEMISTRY METHOD 08/11/2024 11:47 AM EDT [facility] Albumin 3.3 3.2 - 5.0 g/dL LAB CHEMISTRY METHOD 08/11/2024 11:47 AM EDT [facility] Total Bilirubin 0.5 0.0 - 1.4 mg/dL LAB CHEMISTRY METHOD 08/11/2024 11:47 AM EDT [facility] Blood Venous blood specimen / Unknown Venipuncture / Unknown 08/11/2024 6:40 AM EDT 08/11/2024 11:02 AM EDT Rebecca Gomez MD LAB BLOOD ORDERABLES Final Resul t [facility] [address] [place] [address], * (ABNORMAL) Complete blood count (08/11/2024 6:40 AM EDT) WBC 4.7(L) 4.8 - 10.8 K/[facility] LAB HEMETOLOGY METHOD 08/11/2024 11:54 AM EDT [facility] RBC 4.50 4.50 - 5.50 M/[facility] LAB HEMETOLOGY METHOD 08/11/2024 11:54 AM EDT [facility] Hemoglobin 12.6(L) 13.5 - 17.5 g/dL LAB HEMETOLOGY METHOD 08/11/2024 11:54 AM [facility] Hematocrit 37.8(L) 42.0 - 54.0 % LAB HEMETOLOGY METHOD 08/11/2024 11:54 AM EDT [facility] MCV 84.6 79.0 - 98.0 FL LAB HEMETOLOGY METHOD 08/11/2024 11:54 AM EDT [facility] MCH 28.2 27.0 - 32.0 pcg LAB HEMETOLOGY METHOD 08/11/2024 11:54 AM EDT [facility] MCHC 33.3 32.0 - 37.0 g/dL LAB HEMETOLOGY METHOD 08/11/2024 11:54 AM EDT [facility] RDW 13.9 11.0 - 15.0 % LAB HEMETOLOGY METHOD 08/11/2024 11:54 AM EDT [facility] Platelets 231 130 - 400 K/mcL LAB HEMETOLOGY METHOD 08/11/2024 11:54 AM EDT [facility] MPV 9.6 7.0 - 11.0 FL LAB HEMETOLOGY METHOD 08/11/2024 11:54 AM EDT [facility] NRBC 0.0 <1.0 % LAB HEMETOLOGY METHOD 08/11/2024 11:54 AM EDT [facility] NRBC Absolute 0.00 <0.10 K/mcL LAB HEMETOLOGY METHOD 08/11/2024 11:54 AM EDT [facility] Blood Venous blood specimen / Unknown Venipuncture / Unknown 08/11/2024 6:40 AM EDT 08/11/2024 11:02 AM EDT us Rebecca Gomez MD LAB BLOOD ORDERABLES Final Resul t [facility] [address] [place] [address], documented in this encounter Visit Diagnoses Diagnosis Essential (primary) hypertension Unspecified essential hypertension Anemia, unspecified Cellulitis, unspecified Type 2 diabetes mellitus without complications (CMS/HCC V24, CMS/HCC V28) documented in this encounter Additional Health Concerns Infection Onset Date Last Indicated Resolved Time C. difficile 08/02/2024 08/02/2024 08/26/2024 7:06 PM EDT documented as of this encounter Care Teams Asphalt Tile Floor Layer Relationship Specialty Start Date End Date Jagjit Hancock PA [address] [place] [phone] PCP - General Physician Cmo & President 07/23/24 documented as of this encounter
--- OUTSIDE RECORDS SUMMARY | 2024-09-22 12:10 | XMS_ITS | Encounter Summary ---
Author Organization [facility] Address [address] [place] [address] Care Team Providers Care Iron Worker Apprentice Name Role Phone Jagjit Hancock Primary Care Provider Gigi price Encounter Details Date Type Department Care Team (Latest Contact Info) Description 07/26/2024 Lab Requisition [facility] - Main Lab [address] [place] [phone] Rebecca Gomez MD [address] [place] [phone] Essential (primary) hypertension; Anemia, unspecified; Cellulitis, unspecified; [...] mmol/L LAB CHEMISTRY METHOD 07/28/2024 1:46 PM [facility] Potassium 4.3 3.5 - 5.5 mmol/L LAB CHEMISTRY METHOD 07/28/2024 1:46 PM [facility] Chloride 100 96 - 110 mmol/L LAB CHEMISTRY METHOD 07/28/2024 1:46 PM [facility] CO2 24 21 - 32 mmol/L LAB CHEMISTRY METHOD 07/28/2024 1:46 PM [facility] Anion Gap 12(H) 3 - 11 LAB CHEMISTRY METHOD 07/28/2024 1:46 PM [facility] Glucose 103(H) 70 - 100 mg/dL LAB CHEMISTRY METHOD 07/28/2024 1:46 PM [facility] BUN 28(H) 5 - 25 mg/dL LAB CHEMISTRY METHOD 07/28/2024 1:46 PM [facility] Creatinine 1.06 0.70 - 1.30 mg/dL LAB CHEMISTRY METHOD 07/28/2024 1:46 PM [facility] eGFR 72 >=60 mL/min/1. 73m2 LAB CHEMISTRY METHOD 07/28/2024 1:46 PM [facility] Comment:Calculation based on the??Chronic Kidney Disease Epidemiology Collaboration (CKD-EPI) equation refit??without adjustment for race. BUN/Creatinine Ratio 26.4 LAB CHEMISTRY METHOD 07/28/2024 1:46 PM [facility] Calcium 9.1 8.5 - 10.5 mg/dL LAB CHEMISTRY METHOD 07/28/2024 1:46 PM [facility] AST (SGOT) 19 10 - 42 unit/L LAB CHEMISTRY METHOD 07/28/2024 1:46 PM [facility] ALT (SGPT) 18 10 - 60 unit/L LAB CHEMISTRY METHOD 07/28/2024 1:46 PM [facility] Alkaline Phosphatase 88 42 - 121 unit/L LAB CHEMISTRY METHOD 07/28/2024 1:46 PM [facility] Total Protein 6.7 6.0 - 8.0 g/dL LAB CHEMISTRY METHOD 07/28/2024 1:46 PM [facility] Albumin 3.3 3.2 - 5.0 g/dL LAB CHEMISTRY METHOD 07/28/2024 1:46 PM [facility] Total Bilirubin 0.5 0.0 - 1.4 mg/dL LAB CHEMISTRY METHOD 07/28/2024 1:46 PM [facility] Blood Venous blood specimen / Unknown Venipuncture / Unknown 07/28/2024 7:32 AM EST 07/28/2024 11:16 AM EST Rebecca Gomez MD LAB BLOOD ORDERABLES Final Resul t [facility] [address] [place] [address], [place] [phone] * (ABNORMAL) Complete blood count (07/28/2024 7:32 AM EST) WBC 5.6 4.8 - 10.8 K/mcL LAB HEMETOLOGY METHOD 07/28/2024 1:32 PM [facility] RBC 4.50 4.50 - 5.50 M/mcL LAB HEMETOLOGY METHOD 07/28/2024 1:32 PM [facility] Hemoglobin 12.5(L) 13.5 - 17.5 g/dL LAB HEMETOLOGY METHOD 07/28/2024 1:32 PM [facility] Hematocrit 38.5(L) 42.0 - 54.0 % LAB HEMETOLOGY METHOD 07/28/2024 1:32 PM [facility] MCV 86.5 79.0 - 98.0 FL LAB HEMETOLOGY METHOD 07/28/2024 1:32 PM EST [facility] MCH 28.1 27.0 - 32.0 pcg LAB HEMETOLOGY METHOD 07/28/2024 1:32 PM EST [facility] MCHC 32.5 32.0 - 37.0 g/dL LAB HEMETOLOGY METHOD 07/28/2024 1:32 PM EST [facility] RDW 13.8 11.0 - 15.0 % LAB HEMETOLOGY METHOD 07/28/2024 1:32 PM EST [facility] Platelets 265 130 - 400 K/mcL LAB HEMETOLOGY METHOD 07/28/2024 1:32 PM EST [facility] MPV 9.7 7.0 - 11.0 FL LAB HEMETOLOGY METHOD 07/28/2024 1:32 PM EST [facility] NRBC 0.0 <1.0 % LAB HEMETOLOGY METHOD 07/28/2024 1:32 PM EST [facility] NRBC Absolute 0.00 <0.10 K/mcL LAB HEMETOLOGY METHOD 07/28/2024 1:32 PM [facility] Blood Venous blood specimen / Unknown Venipuncture / Unknown 07/28/2024 7:32 AM EST 07/28/2024 11:16 AM EST Rebecca Gomez MD LAB BLOOD ORDERABLES Final Resul t [facility] [address] [place] [address], documented in this encounter Visit Diagnoses Diagnosis [...] documented as of this encounter Care Teams Iron Worker Apprentice Relationship Specialty Start Date End Date Jagjit Hancock PA [address] [place] [phone] PCP - General Physician Railroad Wheels And Axle Inspector 07/23/24 documented as of this encounter
--- OUTSIDE RECORDS SUMMARY | 2024-09-22 12:10 | XMS_ITS | Encounter Summary ---
Author Organization [facility] Address [address] [place] [address] Care Team Providers Care Drop Wire Operator Name Role Phone Jagjit Hancock Primary Care Provider Gigi price Encounter Details Date Type Department Care Team (Late st Contact Info) Description 08/03/2024 Lab Requisition [facility] - Main Lab [address] [place] [phone] Mary Cotter PA [address] [place] [phone] Diarrhea, unspecified Social History Tobacco Use Types [...] LAB MICROBIOLOGY METHOD 08/03/2024 12:41 PM EDT [facility] Comment: CRITICAL RESULT POSITIVE FOR TOXIN PRODUCING CLOSTRIDIOIDES DIFFICILE, NO ADDITIONAL TESTING IS NECESSARY. REPEAT SAMPLES SHOULD NOT BE SUBMITTED FOR TEST OF CURE. Stool Rectum structure / Unknown Non-blood Collection / Unknown 08/02/2024 7:40 PM EST 08/03/2024 11:45 AM EDT [facility] MICROBIOLOGY - GENERAL ORD ERABLES Final Result Performing Organization Address City/[facility]/ZIP Co de Phone Number [facility] [address] [place] [address], [place] [phone] * Clostridium difficile toxin (08/02/2024 7:40 PM EST) C difficile Toxins A+B, EIA 08/03/2024 11:45 AM EDT [facility] Comment:Refer to C. difficil e PCR assay for results. Stool Rectum structure / Unknown Non-blood Collection / Unknown 08/02/2024 7:40 PM EST 08/03/2024 10:19 AM EDT [facility] MICROBIOLOGY - GENERAL ORD ERABLES Final Result Performing Organization Address [facility] Co de Phone Number [facility] [address] [place] [address], [place] [phone] documented in this encounter Visit Diagnoses Diagnosis Diarrhea, unspecified documented in this encounter Additional Health Concerns Infection Onset Date Last Indicated Resolved Time C. difficile 08/02/2024 08/02/2024 08/26/2024 7:06 PM EDT C. Diff Rule-Out Infection 08/03/2024 08/02/2024 0 08/03/2024 11:45 AM EDT documented as of this encounter Care Teams Drop Wire Operator Relationship Specialty Start Date End Date Jagjit Hancock PA [address] [place] [address] [place] [phone] PCP - General Physician [employer] Counselor 07/23/24 documented as of this encounter
--- OUTSIDE RECORDS SUMMARY | 2024-09-22 12:10 | XMS_ITS ---
Author Organization [facility] Address [address] [facility] [place] [address] Care Team Providers Care Junk Removal Specialist Name Role Phone Marina MCDANIELS, Nubia Zelaya Primary Care Provider Un available Black, Sussy Unavailable [phone] Medications Medication SIG (Take, Route, Frequency, Duration) [...] Active Encounters Encounter Location Date Provider Diagnosis [facility] [address] [address] 09/01/2024 Sussy Lowery Plan Of Treatment Next Appt Details Provider Name:Sussy Lowery , 12/11/2024 03:00:00 PM, [address] [place] [address], [phone], Progress Notes * Tobin BEYDOB:1945 ( 79 yo M)Acc No.[id number]:09/01/2024 Progress Note Patient:?Tobin BEY Provider:?Sussy Lowery DPM :1945???Age:79 Y???Sex:Male Romeo e:09/01/2024 Address:[address] [place] [address] [phone] Pcp:Jayjay Graham Subjective: * Chief Complaints: * [...]
--- OUTSIDE RECORDS SUMMARY | 2024-09-22 12:10 | XMS_ITS | Encounter Summary ---
Author Organization [facility] Address [address] [place] [address] Care Team Providers Care Emergency Management Program Specialist Name Role Phone Jagjit Hancock Primary Care Provider Gigi price Encounter Details Date Type Department Care Team (Latest Contact Info) Description 07/23/2024 Lab Requisition [facility] - Main Lab [address] [facility] [place] [address] Jagjit Hancock PA [address] [place] [phone] Hyperlipidemia, unspecified; Essential (primary) hypertension; Anemia, unspecified; [...] LAB CHEMISTRY METHOD 07/23/2024 1:35 PM EST [facility] ([facility] Blood Venous blood specimen / Unknown Venipuncture / Unknown 07/23/2024 8:56 AM EST 07/23/2024 10:27 AM EST Jagjit JOHNSON LAB BLOOD ORDERABLES Final Re sult Performing Organization Address City/[facility]/ZIP Co de Phone Number [facility] [address] [place] [address], [place] [phone] * (ABNORMAL) Folate (07/23/2024 8:56 AM EST) Pathologist [facility] Folate 17.7(H) 2.8 - 17.0 ng/ml LAB CHEMISTRY METHOD 07/23/2024 1:58 PM EST [facility] Blood Venous blood specimen / Unknown Venipuncture / Unknown 07/23/2024 8:56 AM EST 07/23/2024 10:27 AM EST Jagjit JOHNSON LAB BLOOD ORDERABLES Final Re sult Performing Organization Address City/[facility]/ZIP Co de Phone Number [facility] [address] [place] [address], [place] [phone] * Vitamin B12 (07/23/2024 8:56 AM EST) Pathologist [facility] Vitamin B-12 761 250 - 900 pcg/mL LAB CHEMISTRY METHOD 07/23/2024 1:58 PM EST [facility] Blood Venous blood specimen / Unknown Venipuncture / Unknown 07/23/2024 8:56 AM EST 07/23/2024 10:27 AM EST Jagjit JOHNSON LAB BLOOD ORDERABLES Final Re sult Performing Organization Address City/[facility]/ZIP Co de Phone Number [facility] [address] [place] [address], [place] [phone] * Vitamin D 25 hydroxy (07/23/2024 8:56 AM EST) Vit D, 25-Hydroxy 41.0 30.0 - 80.0 ng/mL LAB CHEMISTRY METHOD 07/23/2024 1:34 PM EST [facility] Blood Venous blood specimen / Unknown Venipuncture / Unknown 07/23/2024 8:56 AM EST 07/23/2024 10:27 AM EST Jagjit JOHNSON LAB BLOOD ORDERABLES Final Re sult Performing Organization Address [facility]/ZIP Co de Phone Number [facility] [address] [place] [address], [place] [phone] * (ABNORMAL) Hemoglobin A1c (07/23/2024 8:56 AM EST) Hemoglobin A1C 6.6(H) <6.5 % LAB CHEMISTRY METHOD 07/23/2024 9:50 PM [facility] Mean Bld Glu Estim. 143 mg/dL LAB CHEMISTRY METHOD 07/23/2024 9:50 PM [facility] Blood Venous blood specimen / Unknown Venipuncture / Unknown 07/23/2024 8:56 AM EST 07/23/2024 10:27 AM EST Jagjit JOHNSON LAB BLOOD ORDERABLES Final Re sult Performing Organization Address [facility]/ZIP Co de Phone Number [facility] [address] [place] [address], [place] [phone] * Lipid panel with reflex to direct LDL (07/23/2024 8:56 AM EST) Cholesterol 117 0 - 200 mg/dL LAB CHEMISTRY METHOD 07/23/2024 1:58 PM [facility] Triglycerides 136 0 - 150 mg/dL LAB CHEMISTRY METHOD 07/23/2024 1:58 PM [facility] HDL 53 >=40 [...] JOHNSON LAB BLOOD ORDERABLES Final Re sult [facility] [address] [place] [address], * (ABNORMAL) Comprehensive metabolic panel (07/23/2024 8:56 AM EST) Sodium 137 133 - 145 mmol/L LAB CHEMISTRY METHOD 07/23/2024 1:58 PM [facility] Potassium 4.1 3.5 - 5.5 mmol/L LAB CHEMISTRY METHOD 07/23/2024 1:58 PM [facility] Chloride 103 96 - 110 mmol/L LAB CHEMISTRY METHOD 07/23/2024 1:58 PM [facility] CO2 23 21 - 32 mmol/L LAB CHEMISTRY METHOD 07/23/2024 1:58 PM [facility] Anion Gap 11 3 - 11 LAB CHEMISTRY METHOD 07/23/2024 1:58 PM [facility] Glucose 156(H) 70 - 100 mg/dL LAB CHEMISTRY METHOD 07/23/2024 1:58 PM [facility] BUN 19 5 - 25 mg/dL LAB CHEMISTRY METHOD 07/23/2024 1:58 PM [facility] Creatinine 1.17 0.70 - 1.30 mg/dL LAB CHEMISTRY METHOD 07/23/2024 1:58 PM [facility] eGFR 64 >=60 mL/min/1. 73m2 LAB CHEMISTRY METHOD 07/23/2024 1:58 PM [facility] Comment:Calculation based on the??Chronic Kidney Disease Epidemiology Collaboration (CKD-EPI) equation refit??without adjustment for race. BUN/Creatinine Ratio 16.2 LAB CHEMISTRY METHOD 07/23/2024 1:58 PM [facility] Calcium 9.1 8.5 - 10.5 mg/dL LAB CHEMISTRY METHOD 07/23/2024 1:58 PM [facility] AST (SGOT) 23 10 - 42 unit/L LAB CHEMISTRY METHOD 07/23/2024 1:58 PM [facility] ALT (SGPT) 21 10 - 60 unit/L LAB CHEMISTRY METHOD 07/23/2024 1:58 PM [facility] Alkaline Phosphatase 96 42 - 121 unit/L LAB CHEMISTRY METHOD 07/23/2024 1:58 PM [facility] Total Protein 6.9 6.0 - 8.0 g/dL LAB CHEMISTRY METHOD 07/23/2024 1:58 PM [facility] Albumin 3.1(L) 3.2 - 5.0 g/dL LAB CHEMISTRY METHOD 07/23/2024 1:58 PM [facility] Total Bilirubin 0.5 0.0 - 1.4 mg/dL LAB CHEMISTRY METHOD 07/23/2024 1:58 PM [facility] Blood Venous blood specimen / Unknown Venipuncture / Unknown 07/23/2024 8:56 AM EST 07/23/2024 10:27 AM EST us Jagjit JOHNSON LAB BLOOD ORDERABLES Final Re sult [facility] [address] [place] [address], [place] [phone] * (ABNORMAL) Complete blood count (07/23/2024 8:56 AM EST) [facility] WBC 6.5 4.8 - 10.8 K/mcL LAB HEMETOLOGY METHOD 07/23/2024 12:33 PM [facility] RBC 4.60 4.50 - 5.50 M/mcL LAB HEMETOLOGY METHOD 07/23/2024 12:33 PM [facility] Hemoglobin 12.7(L) 13.5 - 17.5 g/dL LAB HEMETOLOGY METHOD 07/23/2024 12:33 PM [facility] Hematocrit 39.8(L) 42.0 - 54.0 % LAB HEMETOLOGY METHOD 07/23/2024 12:33 PM [facility] MCV 86.3 79.0 - 98.0 FL LAB HEMETOLOGY METHOD 07/23/2024 12:33 PM [facility] MCH 27.5 27.0 - 32.0 pcg LAB HEMETOLOGY METHOD 07/23/2024 12:33 PM [facility] MCHC 31.9(L) 32.0 - 37.0 g/dL LAB HEMETOLOGY METHOD 07/23/2024 12:33 PM [facility] RDW 13.8 11.0 - 15.0 % LAB HEMETOLOGY METHOD 07/23/2024 12:33 PM [facility] Platelets 280 130 - 400 K/mcL LAB HEMETOLOGY METHOD 07/23/2024 12:33 PM [facility] MPV 9.1 7.0 - 11.0 FL LAB HEMETOLOGY METHOD 07/23/2024 12:33 PM [facility] NRBC 0.0 <1.0 % LAB HEMETOLOGY METHOD 07/23/2024 12:33 PM EST [facility] NRBC Absolute 0.00 <0.10 K/mcL LAB HEMETOLOGY METHOD 07/23/2024 12:33 PM EST [facility] Blood Venous blood specimen / Unknown Venipuncture / Unknown 07/23/2024 8:56 AM EST 07/23/2024 10:27 AM EST us Jagjit JOHNSON LAB BLOOD ORDERABLES Final Re sult [facility] [address] [place] [address], documented in this encounter Visit Diagnoses Diagnosis Hyperlipidemia, unspecified Essential (primary) hypertension Unspecified essential hypertension Anemia, unspecified Type 2 diabetes mellitus without complications (CMS/HCC V24, CMS/[facility] V28) Vitamin D deficiency, unspecified Cellulitis, unspecified documented in this encounter Additional Health Concerns Infection Onset Date Last Indicated Resolved Time C. difficile 08/02/2024 08/02/2024 08/26/2024 7:06 PM EDT C. Diff Rule-Out Infection 08/03/2024 08/02/2024 0 08/03/2024 11:45 AM EDT documented as of this encounter Care Teams Emergency Management Program Specialist Relationship Specialty Start Date End Date Jagjit Hancock PA [address] [place] [phone] PCP - General Physician Bag Shaker 07/23/24 documented as of this encounter
--- OUTSIDE RECORDS SUMMARY | 2024-09-22 12:10 | XMS_ITS ---
Author Organization [facility] Address [address] [place] [address] Care Team Providers Care Proof Machine Operator Name Role Phone Marina MCDANIELS, Nubia Zelaya Primary Care Provider Un available SebastiánUcheSussy Unavailable [phone] REASON FOR VISIT RX Medications Medication SIG (Take, Route, Frequency, Duration) Notes Start Date End Date Status Ciclopirox Olamine 0.77 % 1 application to affected area Externally Twice a day for 30 days 09/10/2024 Active Encounters Encounter Location Date Provider Diagnosis [facility] [address] [place] [address] 09/10/2024 Sussy Sebastián Plan Of Treatment Medication Medication Name Sig Start Date Stop Date Notes Ciclopirox Olamine 0.77 % 1 application to affected area Externally Twice a day for 30 days 09/10/2024 Next Appt Details Provider Name:Sussy Patterson Sebastián , 12/11/2024 03:00:00 PM, [address] [place], [address], Progress Notes * JULIO CNAGA TobinDOB:1945 ( 79 yo M)Acc No.[id number]:09/10/2024 Patient:Tobin LUIS :1945???Age:79 Y???Sex:Male Address: [place], [address] * Refills? Start Ciclopirox Olamine Cream, 0.77 %, Externally, 60, 1 application to affected area, Twice a day, 30 days, Refills=4 * true * Date:? Generated for Tu schrader/Yang/Jean on:?09/22/2024 12:09 PM EDT
== END 2024-09-22 11:01 | disposition home or self-care (01) ==
LOC: HO.HKA 10:24
PROVIDERS: PCP Internal Medicine; Visit Provider Internal Medicine Nephrology
DX: N17.9 Acute kidney failure, unspecified (principal); I10 Essential (primary) hypertension
CPT/HCPCS: 99204

== ENCOUNTER → 2024-09-22 10:24 | Outpatient (BNVA) | payer MEDICARE, SELFPAY | PROVIDERS: PCP Internal Medicine; Visit Provider Internal Medicine Nephrology | DX: N17.9 Acute kidney failure, unspecified (principal); I10 Essential (primary) hypertension | CPT/HCPCS: 99202 ==

== ENCOUNTER 2024-10-04 10:10 | Outpatient (AMB) | payer MEDICARE, SELFPAY ==
--- OUTSIDE RECORDS SUMMARY | 2024-10-04 10:12 | XMS_ITS | Encounter Summary ---
Author Organization [facility] Address [address] [place] [address] Care Team Providers Care Photography Editor Name Role Phone Jagjit Hancock Primary Care Provider Gigi price Encounter Details Date Type Department Care Team (Latest Contact Info) Description 08/16/2024 Lab Requisition [facility] - Main Lab [address] [place] [phone] Rebecca Gomez MD [address] [place] [phone] Essential (primary) hypertension; Anemia, unspecified; Cellulitis, unspecified; [...] Comprehensive metabolic panel (08/18/2024 7:18 AM EDT) [facility] Signature Sodium 132(L) 133 - 145 mmol/L LAB CHEMISTRY METHOD 08/18/2024 12:46 PM [facility] Potassium 4.4 3.5 - 5.5 mmol/L LAB CHEMISTRY METHOD 08/18/2024 12:46 PM [facility] Chloride 95(L) 96 - 110 mmol/L LAB CHEMISTRY METHOD 08/18/2024 12:46 PM [facility] CO2 27 21 - 32 mmol/L LAB CHEMISTRY METHOD 08/18/2024 12:46 PM [facility] Anion Gap 10 3 - 11 LAB CHEMISTRY METHOD 08/18/2024 12:46 PM [facility] Glucose 88 70 - 100 mg/dL LAB CHEMISTRY METHOD 08/18/2024 12:46 PM [facility] BUN 34(H) 5 - 25 mg/dL LAB CHEMISTRY METHOD 08/18/2024 12:46 PM [facility] Creatinine 1.19 0.70 - 1.30 mg/dL LAB CHEMISTRY METHOD 08/18/2024 12:46 PM [facility] eGFR 63 >=60 mL/min/1. 73m2 LAB CHEMISTRY METHOD 08/18/2024 12:46 PM [facility] Comment:Calculation based on the??Chronic Kidney Disease Epidemiology Collaboration (CKD-EPI) equation refit??without adjustment for race. BUN/Creatinine Ratio 28.6 LAB CHEMISTRY METHOD 08/18/2024 12:46 PM [facility] Calcium 9.7 8.5 - 10.5 mg/dL LAB CHEMISTRY METHOD 08/18/2024 12:46 PM [facility] AST (SGOT) 30 10 - 42 unit/L LAB CHEMISTRY METHOD 08/18/2024 12:46 PM [facility] ALT (SGPT) 34 10 - 60 unit/L LAB CHEMISTRY METHOD 08/18/2024 12:46 PM EDT [facility] Alkaline Phosphatase 93 42 - 121 unit/L LAB CHEMISTRY METHOD 08/18/2024 12:46 PM EDT [facility] Total Protein 7.2 6.0 - 8.0 g/dL LAB CHEMISTRY METHOD 08/18/2024 12:46 PM [facility] Albumin 3.4 3.2 - 5.0 [...] Resul t [facility] [address] [place] [address], * (ABNORMAL) Complete blood count (08/18/2024 7:18 [...] t [facility] [address] [place] [address], documented in this encounter Visit Diagnoses Diagnosis Essential (primary) hypertension Unspecified essential hypertension Anemia, unspecified Cellulitis, unspecified Type 2 diabetes mellitus without complications (CMS/HCC V24, CMS/HCC V28) documented in this encounter Additional Health Concerns Infection Onset Date Last Indicated Resolved Time C. difficile 08/02/2024 08/02/2024 08/26/2024 7:06 PM EDT documented as of this encounter Care Teams Photography Editor Relationship Specialty Start Date End Date Jagjit Hancock PA [address] [place] [phone] PCP - General Physician Insurance Clerk 07/23/24 documented as of this encounter
--- OUTSIDE RECORDS SUMMARY | 2024-10-04 10:13 | XMS_ITS | Clinical Summary ---
Author Organization [address] Address [address] [place] [phone] Phone Care Team Providers Care Pattern Data Operator Name Role Phone Jagjit Hancock Primary Care Provider Gigi price Encounters Date Type Department Care Team Description 08/16/2024 Lab Requisition [facility] [address] [place] [phone] Rebecca Gomez MD Essential (primary) hypertension; Anemia, unspecified; Cellulitis, unspecified; Type 2 diabetes mellitus without complications (CMS/HCC V24, CMS/[facility] V28) 08/08/2024 Lab Requisition [facility] [address] [place] [phone] Rebecca Gomez MD Essential (primary) hypertension; Anemia, unspecified; Cellulitis, unspecified; Type 2 diabetes mellitus without complications (CMS/HCC V24, CMS/[facility] V28) 08/03/2024 Lab Requisition [facility] Main Lab [address] [place] [phone] Mary Cotter PA Diarrhea, unspecified 08/02/2024 Lab Requisition [facility] [address] [place] [phone] Rebecca Gomez MD Essential (primary) hypertension; Anemia, unspecified; Cellulitis, unspecified; Type 2 diabetes mellitus without complications (CMS/[facility] V24, CMS/[facility] V28) 07/26/2024 Lab Requisition [facility] [address] [place] [address] Rebecca Gomez MD Essential (primary) hypertension; Anemia, unspecified; Cellulitis, unspecified; Type 2 diabetes mellitus without complications ([facility] V24, [facility] V28) 07/23/2024 Lab Requisition [facility] - Main Lab [address] [facility] [place] [address] Jagjit Hancock PA Hyperlipidemia, unspecified; Essential (primary) hypertension; Anemia, unspecified; Type 2 diabetes mellitus without complications ([facility] V24, [facility] V28); Vitamin D deficiency, unspecified; Cellulitis, unspecified [...] 08/18/2024 11:59 AM T [facility] Blood Venous blood specimen / Unknown Venipuncture / Unknown 08/18/2024 7:18 AM EDT 08/18/2024 11:03 AM EDT us Rebecca Gomez MD LAB BLOOD ORDERABLES Final Resul t [facility] [address] [place] [address], * (ABNORMAL) Comprehensive metabolic panel (08/18/2024 7:18 AM EDT) Only the most recent of5 resultswithin the time period is included. Sodium 132(L) 133 - 145 mmol/L LAB CHEMISTRY METHOD 08/18/2024 12:46 PM [facility] Potassium 4.4 3.5 - [...] 08/18/2024 12:46 PM EDT [facility] Albumin 3.4 3.2 - 5.0 g/dL LAB CHEMISTRY METHOD 08/18/2024 12:46 PM EDT [facility] Total Bilirubin 0.6 0.0 - 1.4 mg/dL LAB CHEMISTRY METHOD 08/18/2024 12:46 PM EDT [facility] Blood Venous blood specimen / Unknown Venipuncture / Unknown 08/18/2024 7:18 AM EDT 08/18/2024 11:03 AM EDT Rebecca Gomez MD LAB BLOOD ORDERABLES Final Resul t Performing Organization Address City/[facility]/ZIP Co de Phone Number [facility] [address] [place] [address], [place] [phone] * (ABNORMAL) Clostridium difficile molecular study (08/02/2024 7:40 PM EST) Pathologist [facility] Clostridium difficile PCR Positive (AA) Negative LAB MICROBIOLOGY METHOD 08/03/2024 12:41 PM EDT [facility] Comment: CRITICAL RESULT POSITIVE FOR TOXIN PRODUCING CLOSTRIDIOIDES DIFFICILE, NO ADDITIONAL TESTING IS NECESSARY. REPEAT SAMPLES SHOULD NOT BE SUBMITTED FOR TEST OF CURE. Stool Rectum structure / Unknown Non-blood Collection / Unknown 08/02/2024 7:40 PM EST 08/03/2024 11:45 AM EDT us Mary JOHNSON LAB MICROBIOLOGY - GENERAL ORD ERABLES Final Result Performing Organization Address City/[facility]/ZIP Co de Phone Number [facility] [address] [place] [address], [place] [phone] * Clostridium difficile toxin (08/02/2024 7:40 PM EST) C difficile Toxins A+B, EIA 08/03/2024 11:45 AM EDT [facility] Comment:Refer to C. difficil e PCR assay for results. Stool Rectum structure / Unknown Non-blood Collection / Unknown 08/02/2024 7:40 PM EST 08/03/2024 10:19 AM EDT us Mary JOHNSON LAB MICROBIOLOGY - GENERAL ORD ERABLES Final Result [facility] [address] [place] [address], [place] [phone] * Lipid panel with reflex to direct LDL (07/23/2024 8:56 AM EST) Cholesterol 117 0 - 200 mg/dL LAB CHEMISTRY METHOD 07/23/2024 1:58 PM [facility] Triglycerides 136 0 - 150 mg/dL LAB CHEMISTRY METHOD 07/23/2024 1:58 PM [facility] HDL 53 >=40 mg/dL LAB CHEMISTRY METHOD 07/23/2024 1:58 PM [facility] LDL Calculated 37 0 - 100 mg/dL LAB CHEMISTRY METHOD 07/23/2024 1:58 PM [facility] VLDL Cholesterol Quique 27.2 mg/dL LAB CHEMISTRY METHOD 07/23/2024 1:58 PM [facility] Non HDL Chol. (LDL+VLDL) 64 <145 mg/dL LAB CHEMISTRY METHOD 07/23/2024 1:58 PM [facility] Chol/HDL Ratio 2.2 0.0 - 4.4 LAB CHEMISTRY METHOD 07/23/2024 1:58 PM [facility] Blood Venous blood specimen / Unknown Venipuncture / Unknown 07/23/2024 8:56 AM EST 07/23/2024 10:27 AM EST Jagjit JOHNSON LAB BLOOD ORDERABLES Final Re sult Performing Organization Address [facility]/ZIP Co de Phone Number [facility] [address] [place] [address], [place] [phone] * Vitamin D 25 hydroxy (07/23/2024 8:56 AM EST) Vit D, 25-Hydroxy 41.0 30.0 - 80.0 ng/mL LAB CHEMISTRY METHOD 07/23/2024 1:34 PM EST [facility] Blood Venous blood specimen / Unknown Venipuncture / Unknown 07/23/2024 8:56 AM EST 07/23/2024 10:27 AM EST Jagjit JOHNSON LAB BLOOD ORDERABLES Final Re sult Performing Organization Address [facility] Co de Phone Number [facility] [address] [place] [address], [place] [phone] * (ABNORMAL) Thyroid stimulating hormone (07/23/2024 8:56 AM EST) [facility] TSH 4.10(H) 0.40 - 4.00 mcIU/mL LAB CHEMISTRY METHOD 07/23/2024 1:35 PM EST [facility] Blood Venous blood specimen / Unknown Venipuncture / Unknown 07/23/2024 8:56 AM EST 07/23/2024 10:27 AM EST Jagjit JOHNSON LAB BLOOD ORDERABLES Final Re sult Performing Organization Address City/[facility]/ZIP Co de Phone Number [facility] [address] [place] [address], [place] [phone] * (ABNORMAL) Hemoglobin A1c (07/23/2024 8:56 AM EST) Pathologist [facility] Hemoglobin A1C 6.6(H) <6.5 % LAB CHEMISTRY METHOD 07/23/2024 9:50 PM EST [facility] Mean Bld Glu Estim. 143 mg/dL LAB CHEMISTRY METHOD 07/23/2024 9:50 PM EST [facility] Blood Venous blood specimen / Unknown Venipuncture / Unknown 07/23/2024 8:56 AM EST 07/23/2024 10:27 AM EST Jagjit JOHNSON LAB BLOOD ORDERABLES Final Re sult Performing Organization Address [facility]/ZIP Co de Phone Number [facility] [address] [place] [address], [place] [phone] * (ABNORMAL) Folate (07/23/2024 8:56 AM EST) Folate 17.7(H) 2.8 - 17.0 ng/ml LAB CHEMISTRY METHOD 07/23/2024 1:58 PM EST [facility] Blood Venous blood specimen / Unknown Venipuncture / Unknown 07/23/2024 8:56 AM EST 07/23/2024 10:27 AM EST Jagjit JOHNSON LAB BLOOD ORDERABLES Final Re sult Performing Organization Address [facility]/ZIP Co de Phone Number [facility] [address] [place] [address], [place] [phone] * Vitamin B12 (07/23/2024 8:56 AM EST) Vitamin B-12 761 250 - 900 pcg/mL LAB CHEMISTRY METHOD 07/23/2024 1:58 PM EST [facility] Blood Venous blood specimen / Unknown Venipuncture / Unknown 07/23/2024 8:56 AM EST 07/23/2024 10:27 AM EST Jagjit JOHNSON LAB BLOOD ORDERABLES Final Re sult [facility] [address] [place] [address], [place] [phone] from Last 3 Months Insurance MEDICARE [facility] Care Teams Pattern Data Operator Relationship Specialty Start Date End Date Jagjit Hancock PA [address] [place] [address] PCP - General Physician Sales Representative Sales Manager 07/23/24
--- OUTSIDE RECORDS SUMMARY | 2024-10-04 10:13 | XMS_ITS | Patient Health Record ---
Author Organization [facility] Address [address] [place] [phone] Care Team Providers Care Australian Rules Footballer Name Role Phone Marina MCDANIELS, Nubia Primary Care Provider Daryn Brito Jr Unavailable [phone] Allergies No Known Allergies Reason For Referral No Information Medications Medication SIG (Take, Route, Frequency, Duration) Notes Start Date End Date Status Rosuvastatin Calcium Active Metoprolol Succinate ER 100mg 1 tablet Orally Once a day A ctive Ozempic (1 MG/DOSE) 4 MG/3ML as directed Subcutaneous Act telly hydrALAZINE HCl 50mg 1 tablet Orally once a day Active Losartan Potassium-HCTZ 100-25mg 1 tablet Orally Once a day A ctive Aspir-81 81mg 1 tablet Orally Once a day Active Naproxen 500mg 1 tablet Orally Twic e a day Active Immunizations Vaccine Route Administration Date Status Comme nts Influenza Unknown 02/23/2015 Administered Influenza Unknown 02/25/2019 Administered Problems Problem Type SNOMED Code ICD Code Onset Dates Problem Status W/U Status Risk Notes Problem 474538441 Colon cancer screening (Z12.11) Active confirmed 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82 [facility] [address] [place] [address] 05/30/2024 Daryn Pimentel Jr Assessments Encounter Date Diagnosis (ICD Code) Assessment Notes Treatment Notes Treatment Clinical Notes Section Notes 09/11/2024 Colon cancer screening (ICD-10 - Z12.11) Colonoscopy discharge material was printed We discussed colonoscopy today. Based on his current ongoing medical issues and overall clinical condition I have recommended deferring this for the time being. If his condition does not improve this can be arranged and he will need to stop aspirin 1 week before the procedure we discussed risks and benefits of the procedure today. We discussed that colorectal cancer screening is optional after age 75, especially in patients with multiple comorbid conditions. 09/11/2024 Aspirin long-term use (ICD-10 - Z79.82) We discussed colonoscopy today. Based on his current ongoing medical issues and overall clinical condition I have recommended deferring this for the time being. If his condition does not improve this can be arranged and he will need to stop aspirin 1 week before the procedure we discussed risks and benefits of the procedure today. We discussed that colorectal cancer screening is optional after age 75, especially in patients with multiple comorbid conditions. Plan Of Treatment Pending Test Test Name Order Date GI BIOPSY 05/05/2016 Future Test Test Name Order Date COLONOSCOPY 08/29/2012 COLONOSCOPY 02/24/2016 UPPER GI ENDOSCOPY 10/01/2019 COLONOSCOPY 10/01/2019 Insurance Providers Payer Name Payer Address Payer Phone Subscriber Number Group Number Insured Name Patient Relationship to Insured Coverage Start Date Coverage End Date MEDICARE OF [place] [address] [place] [id number] [id number] JULIO CREUBEN NIELSON Self - patient is the insured 2 [employer] SUPPLEMENTAL PLAN [address] [place] [address] [id number] DANDREREUBEN Self - patient is the insured 2 Medical (General) History Medical History History ICD Code gerd hypertension torn ligament in the right knee Colonoscopy 11/14, tubular adenomas x 2, follow-up optional based on age EGD 11/14, no Alejandro's esophagus, H. pyl marianne, or celiac disease diabetes mellitus Kidney disease Cellulitis Chronic ulcer of buttocks Surgical History Surgery Date(Month/Year) right shoulder replacement left hip replacement cataract-lens implants
--- OUTSIDE RECORDS SUMMARY | 2024-10-04 10:13 | XMS_ITS | Encounter Summary ---
Author Organization [facility] Address [address] [place] [address] Care Team Providers Care Lockstitch Cup Setter Name Role Phone Jagjit Hancokc Primary Care Provider Gigi price Encounter Details Date Type Department Care Team (Latest Contact Info) Description 08/02/2024 Lab Requisition [facility] - Main Lab [address] [place] [phone] Rebecca Gomez MD [address] [place] [phone] Essential (primary) hypertension; Anemia, unspecified; Cellulitis, unspecified; [...] mmol/L LAB CHEMISTRY METHOD 08/04/2024 12:15 PM [facility] Potassium 3.7 3.5 - 5.5 mmol/L LAB CHEMISTRY METHOD 08/04/2024 12:15 PM [facility] Chloride 97 96 - 110 mmol/L LAB CHEMISTRY METHOD 08/04/2024 12:15 PM [facility] CO2 24 21 - 32 mmol/L LAB CHEMISTRY METHOD 08/04/2024 12:15 PM [facility] Anion Gap 12(H) 3 - 11 LAB CHEMISTRY METHOD 08/04/2024 12:15 PM [facility] Glucose 93 70 - 100 mg/dL LAB CHEMISTRY METHOD 08/04/2024 12:15 PM [facility] BUN 36(H) 5 - 25 mg/dL LAB CHEMISTRY METHOD 08/04/2024 12:15 PM [facility] Creatinine 1.11 0.70 - 1.30 mg/dL LAB CHEMISTRY METHOD 08/04/2024 12:15 PM [facility] eGFR 68 >=60 mL/min/1. 73m2 LAB CHEMISTRY METHOD 08/04/2024 12:15 PM [facility] Comment:Calculation based on the??Chronic Kidney Disease Epidemiology Collaboration (CKD-EPI) equation refit??without adjustment for race. BUN/Creatinine Ratio 32.4 LAB CHEMISTRY METHOD 08/04/2024 12:15 PM [facility] Calcium 9.6 8.5 - 10.5 mg/dL LAB CHEMISTRY METHOD 08/04/2024 12:15 PM [facility] AST (SGOT) 18 10 - 42 unit/L LAB CHEMISTRY METHOD 08/04/2024 12:15 PM [facility] ALT (SGPT) 19 10 - 60 unit/L LAB CHEMISTRY METHOD 08/04/2024 12:15 PM EDT [facility] Alkaline Phosphatase 83 42 - 121 unit/L LAB CHEMISTRY METHOD 08/04/2024 12:15 PM EDT [facility] Total Protein 6.9 6.0 - 8.0 g/dL LAB CHEMISTRY METHOD 08/04/2024 12:15 PM EDT [facility] Albumin 3.3 3.2 - 5.0 g/dL LAB CHEMISTRY METHOD 08/04/2024 12:15 PM EDT [facility] Total Bilirubin 0.5 0.0 - 1.4 mg/dL LAB CHEMISTRY METHOD 08/04/2024 12:15 PM EDT [facility] Blood Venous blood specimen / Unknown Venipuncture / Unknown 08/04/2024 8:03 AM EDT 08/04/2024 10:52 AM EDT Rebecca Gomez MD LAB BLOOD ORDERABLES Final Resul t [facility] [address] [place] [address], * (ABNORMAL) Complete blood count (08/04/2024 8:03 AM EDT) WBC 6.9 4.8 - 10.8 K/mcL LAB HEMETOLOGY METHOD 08/04/2024 11:38 AM EDT [facility] RBC 4.60 4.50 - 5.50 M/mcL LAB HEMETOLOGY METHOD 08/04/2024 11:38 AM EDT [facility] Hemoglobin 12.8(L) 13.5 - 17.5 g/dL LAB HEMETOLOGY METHOD 08/04/2024 11:38 AM EDT [facility] Hematocrit 39.0(L) 42.0 - 54.0 % LAB HEMETOLOGY METHOD 08/04/2024 11:38 AM EDT [facility] MCV 85.2 79.0 - 98.0 FL LAB HEMETOLOGY METHOD 08/04/2024 11:38 AM EDT [facility] MCH 27.9 27.0 - 32.0 pcg LAB HEMETOLOGY METHOD 08/04/2024 11:38 AM EDT [facility] MCHC 32.8 32.0 - 37.0 g/dL LAB HEMETOLOGY METHOD 08/04/2024 11:38 AM EDT [facility] RDW 13.9 11.0 - 15.0 % LAB HEMETOLOGY METHOD 08/04/2024 11:38 AM EDT [facility] Platelets 281 130 - 400 K/mcL LAB HEMETOLOGY METHOD 08/04/2024 11:38 AM EDT [facility] MPV 9.3 7.0 - 11.0 FL LAB HEMETOLOGY METHOD 08/04/2024 11:38 AM EDT [facility] NRBC 0.0 <1.0 % LAB HEMETOLOGY METHOD 08/04/2024 11:38 AM EDT [facility] NRBC Absolute 0.00 <0.10 K/mcL LAB HEMETOLOGY METHOD 08/04/2024 11:38 AM EDT [facility] Blood Venous blood specimen / Unknown Venipuncture / Unknown 08/04/2024 8:03 AM EDT 08/04/2024 10:52 AM EDT us Rebecca Gomez MD LAB BLOOD ORDERABLES Final Resul t [facility] [address] [place] [address], documented in this encounter Visit Diagnoses Diagnosis [...] documented as of this encounter Care Teams Lockstitch Cup Setter Relationship Specialty Start Date End Date Jagjit Hancock PA [address] [place] [address] [place] [phone] PCP - General Physician Dry Mop Maker 07/23/24 documented as of this encounter
--- OUTSIDE RECORDS SUMMARY | 2024-10-04 10:13 | XMS_ITS | Continuity of Care Document ---
Author Name [facility] Organization [facility] Care Team Providers Care Clinical Resource Director Name Role Phone [facility] Unavailable Unavailable Problems Combined list of problems [...] Art SANTAMARIA Comment: Right shoulder replacement 2016 [facility] At risk of pressure ulcer (SNOMED CT 849358625) Active Condition [facility] DM - Diabetes mellitus (SNOMED CT 64188369) Active Condition [facility] HTN - Hypertension (SNOMED CT 67917832) Active Condition [facility] Hyperlipidemia (SCT 33965355) [facility] [place] [facility] Osteoarthritis Active Condition [facility] Pain in right hip joint Active Condition [place] Polyp of colon Active Condition September 262013 Entered By: LIA ABRAHAM Comment: 2012 2 polypsSep 2017 Entered By: Art SANTAMARIA Comment: 06/13 1 polypApr 2020 Entered By: Art SANTAMARIA Comment: 10/2019 EGD and colonic polyp-see note 08/27/20-due 11/17 colon [place] Postsurgical Status of Cataract Extraction Active Condition Sep 10, 2012 Entered By: LIA ABRAHAM Comment: alondra [place] Pressure injury of buttock Active Condition Aug 15, 2023 Entered By: KEO ANAYA Comment: Managed by MYNOR Acevedo [place] Psoriasis Active Condition [facility] Diagnosis: ICD-10-CM L03.116 Cellulitis of left lower limb Active Diagnosis [facility] Diagnosis: ICD-10-CM E11.9 Type 2 diabetes mellitus without complications Active Diagnosis [facility] Diagnosis: ICD-10-CM E11.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 Medication Details Route Status Patient Instructions Prescription Expires Prescription Number Last Dispense Date Ordering Provider Order Date Order Qty Source ASPIRIN 81MG TAB,EC TAKE ONE TABLET BY MOUTH DAILY ORAL ACTIVE JOSH ABRAHAM 2013 [facility] CICLOPIROX OLAMINE 0.77% CREAM,TOP APPLY A TOPICALL Y TWICE DAILY TOPICA L ACTIVE JOSH ABRAHAM 2012 [place] CYANOCOBALA MIN 1000MCG TAB TAKE ONE TABLET BY MOUTH DAILY ORAL ACTIVE JOSH ABRAHAM 2013 [facility] DICLOFENAC NA 1% GEL,TOP APPLY 2 GRAMS TOPICALL Y FOUR TIMES DAILY NEEDED FOR OSTEOART HRITIS - USE DOSING CARD PROVIDED IN BOX TOPICA L ACTIVE 01/30/2025 [id number] 5 Frantz TRUJILLO A 2023 100 [place] DICLOFENAC NA 1% GEL,TOP APPLY 2 GRAMS TOPICALL Y FOUR TIMES DAILY NEEDED FOR OSTEOART HRITIS - USE DOSING CARD PROVIDED IN BOX TOPICA L DISCONT INGULF [facility] 02/15/2024 [id number] 4 KATIE ACEVEDO 2022 100 [place] FLUOCINONID E 0.05% CREAM,TOP APPLY A TOPICALL Y TWICE DAILY TOPICA L ACTIVE JOSH ABRAHAM 2012 [place] HYDROCHLORO THIAZIDE 25MG TAB TAKE ONE TABLET BY MOUTH DAILY TO PREVENT FLUID/CO NTROL BLOOD PRESSURE ORAL ACTIVE 01/30/2025 [id number] 5 Frantz TRUJILLO A 2023 90 [place] HYDROCHLORO THIAZIDE 25MG TAB TAKE ONE TABLET BY MOUTH DAILY TO PREVENT FLUID/CO NTROL BLOOD PRESSURE ORAL DISCONT INUED 02/15/2024 [id number] KATIE ACEVEDO CHESTER S 2022 90 [place] LIDOCAINE 5% PATCH APPLY 1 PATCH TOPICALL Y ONCE DAILY NEEDED (LEAVE PATCH ON FOR 12 HOURS, THEN REMOVE PATCH) TOPICA L ACTIVE 01/30/2025 [id number] 5 Frantz TRUJILLO A 2023 30 [place] LIDOCAINE 5% PATCH APPLY 1 PATCH TOPICALL Y ONCE DAILY NEEDED (LEAVE PATCH ON FOR 12 HOURS, THEN REMOVE PATCH) TOPICA L DISCONT INUED 02/15/2024 [id number] ACEVEDO,KATIE CHESTER S 2022 30 [place] LORATADINE 10MG TAB TAKE ONE TABLET BY MOUTH DAILY ORAL ACTIVE JOSH ABRAHAM 2013 [place] LOSARTAN POTASSIUM 100MG TAB TAKE ONE TABLET BY MOUTH ONCE DAILY FOR BLOOD PRESSURE /HEART ORAL ACTIVE 01/30/2025 [id number] 4 Frantz TRUJILLO A 2023 90 [place] POTASSIUM 100MG TAB TAKE ONE TABLET BY MOUTH ONCE DAILY FOR BLOOD PRESSURE /HEART ORAL DISCONT INUED 02/15/2024 [id number] 4 KATIE ACEVEDO S 2022 90 [place] MAGNESIUM OXIDE TAB TAKE BY MOUTH ORAL ACTIVE ROWENA LAURENT 2018 [place] METFORMIN HCL 1000MG TAB TAKE ONE TABLET BY MOUTH TWICE DAILY FOR DIABETES ORAL ACTIVE 01/30/2025 [id number] 5 Frantz TRUJILLO A 2023 180 [place] METFORMIN HCL 1000MG TAB TAKE ONE TABLET BY MOUTH TWICE DAILY FOR DIABETES ORAL DISCONT INUED 02/15/2024 [id number] 4 KATIE ACEVEDO S 2022 180 [place] METOPROLOL TARTRATE 50MG TAB TAKE ONE TABLET BY MOUTH TWICE DAILY FOR BLOOD PRESSURE /HEART ORAL ACTIVE 06/25/2025 [id number] 5 Frantz TRUJILLO A 2024 180 [place] METOPROLOL TARTRATE 50MG TAB TAKE ONE TABLET BY MOUTH TWICE DAILY FOR BLOOD PRESSURE /HEART ORAL DISCONT INUED 09/26/2024 [id number] 4 ALVARADO ANAYA 2023 180 [place] METOPROLOL TARTRATE 50MG TAB TAKE ONE TABLET BY MOUTH TWICE DAILY FOR BLOOD PRESSURE /HEART ORAL DISCONT INUED 01/16/2024 [id number] ACEVEDO,AD CHESTER S 2022 180 [place] MULTIVITAMI NS W/MINERALS TAB TAKE ONE TABLET BY MOUTH DAILY ORAL ACTIVE JOSH ABRAHAM 2013 [place] OTHER CAP/TAB TAKE 1 APPLICAT ION topical ONCE DAILY NEEDED ACTIVE ROWENA LAURENT [place] ROSUVASTATI N CA 10MG TAB TAKE ONE-HALF TABLET BY MOUTH TWO TIMES A WEEK FOR CHOLESTE ROL ORAL ACTIVE 01/30/2025 [id number] 4 Frantz TRUJILLO AVID A 2023 13 [place] ROSUVASTATI N CA 10MG TAB TAKE ONE-HALF TABLET BY MOUTH TWO TIMES A WEEK FOR CHOLESTE ROL ORAL DISCONT INUED 02/15/2024 [id number] 4 ACEVEDO,AD CHESTER S 2022 13 [place] SEMAGLUTIDE 1MG/0.75ML INJ,SOLN,PE N,3ML INJECT 1MG SUBCUTAN EOUSLY ONCE A WEEK SUBCUT ANEOUS ACTIVE 06/25/2025 [id number] 5 Frantz TRUJILLO AVID A 2024 3 [place] SEMAGLUTIDE 1MG/0.75ML INJ,SOLN,PE N,3ML INJECT 1MG SUBCUTAN EOUSLY ONCE A WEEK SUBCUT ANEOUS DISCONT INUED 09/26/2024 [id number] 5 ALVARADO ANAYA 2023 3 [place] SEMAGLUTIDE 1MG/0.75ML INJ,SOLN,PE N,3ML INJECT 1MG SUBCUTAN EOUSLY ONCE A WEEK SUBCUT ANEOUS DISCONT INUED 05/11/2024 [id number] 4 ALVARADO ANAYA 2023 1 [place] SENNOSIDE 8.6MG (SENNA) TAB TAKE BY MOUTH DAILY ORAL ACTIVE JOSH ABRAHAM 2013 [facility] SPIRONOLACT ONE 25MG TAB TAKE TWO TABLETS BY MOUTH ONCE DAILY ORAL ACTIVE 01/30/2025 [id number] 4 TRUJILLOFrantz A 2023 180 [facility] SPIRONOLACT ONE 25MG TAB TAKE TWO TABLETS BY MOUTH DAILY [REPLACE S CHAPARRITALERRED NE] ORAL DISCONT INUED 02/15/2024 [id number] 4 KATIE ACEVEDO S 2022 180 [facility] VITAMIN D3 (CHOLECALCI FEROL) TAB TAKE BY MOUTH ORAL ACTIVE ROWENA LAURENT 2020 [facility] Immunizations Combined list of available immunizations from the Department of Defense and Veterans Affairs facilities. Immunization Series Date Given Administered By Site Reaction Lot Number CVX Code Drug Central Service Technician Status Comments Source COVID-19 (MODERNA), MRNA, LNP-S, PF, 50 MCG/0.5 ML (AGES 12+ YEARS) 2023 NORI HUGHES AXEL RIGHT DELTO ID [id number] 312 complet ed [facility] INFLUENZA, HIGH-DOSE, TRIVALENT, PF 2023 NORI HUGHES AXEL LEFT DELTO ID [id number] 135 complet ed [facility] COVID-19 (MODERNA), MRNA, LNP-S, PF, 50 MCG/0.5 ML (AGES 12+ YEARS) 1 2022 312 complet ed HISTORICA L INFORMATI ON - FROM PATIENT'S WRITTEN RECORD, Lot#: [id number] Mfr: [employer] Expiratio n Date: 08/31/23 [facility] INFLUENZA, HIGH-DOSE, QUADRIVALENT 2022 WEI OCHOA LEFT DELTO ID [id number] A 197 complet ed [facility] COVID-19 (MODERNA), MRNA, LNP-S, BIVALENT BOOSTER, PF, 50 MCG/0.5 ML OR 25MCG/0.25 ML DOSE 2021 SHEREEN IVERSON LEFT DELTO ID [id number] 229 complet ed Booster for Series, [facility] [place], [facility] COVID-19 (MODERNA), MRNA, LNP-S, PF, 100 MCG OR 50 MCG DOSE 3 2020 207 complet ed MOD; [id number]; 2 [facility] INFLUENZA VACCINE, QUADRIVALENT, ADJUVANTED 2020 205 complet ed [facility] COVID-19 (MODERNA), MRNA, LNP-S, PF, 100 MCG/0.5 ML DOSE 2 2020 207 complet ed MOD; [id number]; 1 [facility] COVID-19 (MODERNA), MRNA, LNP-S, PF, 100 MCG/0.5 ML DOSE 1 2020 207 complet ed MOD; [id number]; 1 [facility] INFLUENZA, UNSPECIFIED FORMULATION 2019 88 complet ed [facility] INFLUENZA, SEASONAL, INJECTABLE 2018 141 complet ed [facility] INFLUENZA, SEASONAL, INJECTABLE 2017 141 complet ed documenta tion influenza HD 03-21-18 Left deltoid [id number] exp 09-26-18 [facility] ZOSTER RECOMBINANT 2 2017 187 complet ed [place] TDAP 2017 115 complet ed [facility] [...] CONJUGATE PCV 13 2015 133 complet ed [place] ZOSTER (HISTORICAL) 2013 121 complet ed [...] 11, 2024 08:32 AM Reporting Lab[facility] [place] [address] [facility] [address] Performing Lab: [facility] [address] [facility] [address] [place] MICROALBU MIN CREATININ E RATIO PANEL MICROALBUMI N/CREATININ E [MASS RATIO] IN URINE 6.9 mg/g 0 - 29.9 07/11 Specimen Type: URINE No comment entered. Ordering Provider: POPEYE TRUJILLO A Report Released Date/Time: Jul 11, 2024 08:32 AM Reporting Lab: [facility] [place] [facility] [address] [facility] [address] Performing Lab: [facility] [address] [facility] [address] [place] MICROALBU MIN CREATININ E RATIO PANEL MICROALBUMI N [MASS/VOLUM E] IN URINE 0.7 mg/dL 07/11 Specimen Type: URINE No comment entered. Ordering Provider: POPEYE TRUJILLO A Report Released Date/Time: Jul 11, 2024 08:32 AM Reporting Lab: [facility] [address] [address] Performing Lab: [facility] [address] [place] MICROALBU MIN CREATININ E RATIO PANEL CREATININE [MASS/VOLUM E] IN URINE 101.71 mg/dL 07/11 Specimen Type: URINE No comment entered. Ordering Provider: POPEYE TRUJILLO A Report Released Date/Time: Jul 11, 2024 08:32 AM Reporting Lab: [facility] [address] [address] Performing [facility]: [facility] [address] [address] [place] TSH THYROTROPIN [UNITS/VOLU ME] IN SERUM OR PLASMA 4.62 u[IU]/ mL 0.35 - 5.00 07/11 Specimen Type: SERUM No comment entered. Ordering Provider: POPEYE TRUJILLO A Report Released Date/Time: Jul 11, 2024 08:32 AM Reporting Lab: [facility] [address] [address] Performing Lab: [facility] [address] [address] [place] VITAMIN D (25-OH) 25-HYDROXYV ITAMIN D3 [MASS/VOLUM E] IN SERUM OR PLASMA 48 ng/mL 20 - 50 07/11 Specimen Type: SERUM No comment entered. Ordering Provider: POPEYE TRUJILLO A Report Released Date/Time: Jul 11, 2024 08:32 AM Reporting Lab: [facility] [address] [address] Performing Lab: [facility] [address] [place] CBC LEUKOCYTES [#/VOLUME] IN BLOOD BY AUTOMATED COUNT 9.27 10*3/u L 4.50 - 11.00 07/11 Specimen Type: BLOOD No comment entered. Ordering Provider: POPEYE TRUJILLO A Report Released Date/Time: Jul 11, 2024 08:32 AM Reporting Lab: [facility] [address] [address] Performing Lab: [facility] [address] [address] [place] CBC ERYTHROCYTE S [#/VOLUME] IN BLOOD BY AUTOMATED COUNT 4.41 10*6/u L 4.23 - 5.66 07/11 Specimen Type: BLOOD No comment entered. Ordering Provider: POPEYE TRUJILLO A Report Released Date/Time: Jul 11, 2024 08:32 AM Reporting Lab: [address] [address] Performing Lab: [facility] [address] [address] [place] CBC HEMOGLOBIN [MASS/VOLUM E] IN BLOOD 12.3 g/dL 12.8 - 17 07/11 L Specimen Type: BLOOD No comment entered. Ordering Provider: POPEYE TRUJILLO A Report Released Date/Time: Jul 11, 2024 08:32 AM Reporting Lab: [facility] [address] [address] Performing Lab: [facility] [address] [address] [place] CBC HEMATOCRIT [VOLUME FRACTION] OF BLOOD BY AUTOMATED COUNT 37.7 39.2 - 50.4 07/11 L Specimen Type: BLOOD No comment entered. Ordering Provider: POPEYE TRUJILLO A Report Released Date/Time: Jul 11, 2024 08:32 AM Reporting Lab: [facility] [address] [address] Performing Lab: [facility] [address] [address] [place] CBC MCV [ENTITIC VOLUME] BY AUTOMATED COUNT 85.5 fL 82 - 99 07/11 Specimen Type: BLOOD No comment entered. Ordering Provider: POPEYE TRUJILLO A Report Released Date/Time: Jul 11, 2024 08:32 AM Reporting Lab: [facility] [address] [facility] [address] Performing Lab: [facility] [address] [facility] [address] [place] CBC MCHC [MASS/VOLUM E] BY AUTOMATED COUNT 32.6 g/dL 30.8 - 35.1 07/11 Specimen Type: BLOOD No comment entered. Ordering Provider: POPEYE TRUJILLO A Report Released Date/Time: Jul 11, 2024 08:32 AM Reporting Lab: [facility] [address] [address] Performing Lab: [address] [address] [place] CBC PLATELETS [#/VOLUME] IN BLOOD BY AUTOMATED COUNT 277 10*3/u L 140 - 360 07/11 Specimen Type: BLOOD No comment entered. Ordering Provider: POPEYE TRUJILLO A Report Released Date/Time: Jul 11, 2024 08:32 AM Reporting Lab: [facility] [address] [facility] [address] Performing Lab: [facility] [address] [address] [place] CBC ERYTHROCYTE DISTRIBUTIO N WIDTH [RATIO] BY AUTOMATED COUNT 13.8 12.0 - 16.0 07/11 Specimen Type: BLOOD No comment entered. Ordering Provider: POPEYE TRUJILLO A Report Released Date/Time: Jul 11, 2024 08:32 AM Reporting Lab: [facility] [address] [address] Performing Lab: [facility] [address] [place] CBC MCH [ENTITIC MASS] BY AUTOMATED COUNT 27.9 pg 26.2 - 32.6 07/11 Specimen Type: BLOOD No comment entered. Ordering Provider: POPEYE TRUJILLO A Report Released Date/Time: Jul 11, 2024 08:32 AM Reporting Lab: [facility] [address] [address] Performing Lab: [facility] [address] [address] [place] LIPID PANEL, NON FASTING CHOLESTEROL [MASS/VOLUM E] IN SERUM OR PLASMA 147 mg/dL 07/11 Specimen Type: SERUM No comment entered. Ordering Provider: POPEYE TRUJILLO A Report Released Date/Time: Jul 11, 2024 08:32 AM Reporting Lab: [address] [address] Performing Lab: [address] [address] [place] LIPID PANEL, NON FASTING TRIGLYCERID E [MASS/VOLUM E] IN SERUM OR PLASMA 96 mg/dL 0 - 150 07/11 Specimen Type: SERUM No comment entered. Ordering Provider: POPEYE TRUJILLO A Report Released Date/Time: Jul 11, 2024 08:32 AM Reporting Lab: [address] [address] Performing Lab: [facility] [address] [address] [place] LIPID PANEL, NON FASTING CHOLESTEROL IN LDL [MASS/VOLUM E] IN SERUM OR PLASMA BY CALCULATION 76 mg/dL 0 - 129 07/11 Specimen Type: SERUM No comment entered. Ordering Provider: POPEYE TRUJILLO A Report Released Date/Time: Jul 11, 2024 08:32 AM Reporting Lab: [address] [address] Performing Lab: [address] [address] [place] LIPID PANEL, NON FASTING CHOLESTEROL .TOTAL/CHOL ESTEROL IN HDL [MASS RATIO] IN SERUM OR PLASMA 2.8 07/11 Specimen Type: SERUM No comment entered. Ordering Provider: POPEYE TRUJILLO A Report Released Date/Time: Jul 11, 2024 08:32 AM Reporting Lab: [facility] [address] [address] Performing Lab: [facility] [address] [address] [place] LIPID PANEL, NON FASTING CHOLESTEROL IN HDL [MASS/VOLUM E] IN SERUM OR PLASMA 52 mg/dL 40 - 60 07/11 Specimen Type: SERUM No comment entered. Ordering Provider: POPEYE TRUJILLO A Report Released Date/Time: Jul 11, 2024 08:32 AM Reporting Lab: [address] [address] Performing Lab: [address] [address] [place] BASIC METABOLIC PANEL (non-fast ing) UREA NITROGEN [MASS/VOLUM E] IN SERUM OR PLASMA 20 mg/dL 7 - 25 07/11 Specimen Type: SERUM No comment entered. Ordering Provider: POPEYE TRUJILLO A Report Released Date/Time: Jul 11, 2024 08:32 AM Reporting Lab: [address] [address] Performing Lab: [facility] [address] [address] [place] BASIC METABOLIC PANEL (non-fast ing) GLUCOSE [MASS/VOLUM E] IN SERUM OR PLASMA 135 mg/dL 65 - 100 07/11 H Specimen Type: SERUM No comment entered. Ordering Provider: POPEYE TRUJILLO A Report Released Date/Time: Jul 11, 2024 08:32 AM Reporting Lab: [address] [address] Performing Lab: [facility] [address] [address] [place] BASIC METABOLIC PANEL (non-fast ing) SODIUM [MOLES/VOLU ME] IN SERUM OR PLASMA 138 mmol/L 135 - 145 07/11 Specimen Type: SERUM No comment entered. Ordering Provider: POPEYE TRUJILLO A Report Released Date/Time: Jul 11, 2024 08:32 AM Reporting Lab: [facility] [address] [address] Performing Lab: [facility] [address] [address] [place] BASIC METABOLIC PANEL (non-fast ing) POTASSIUM [MOLES/VOLU ME] IN SERUM OR PLASMA 3.8 mmol/L 3.5 - 5.0 07/11 Specimen Type: SERUM No comment entered. Ordering Provider: POPEYE TRUJILLO A Report Released Date/Time: Jul 11, 2024 08:32 AM Reporting Lab: [facility] [address] [address] Performing Lab: [facility] [address] [address] [place] BASIC METABOLIC PANEL (non-fast ing) CHLORIDE [MOLES/VOLU ME] IN SERUM OR PLASMA 100 mmol/L 100 - 110 07/11 Specimen Type: SERUM No comment entered. Ordering Provider: POPEYE TRUJILLO A Report Released Date/Time: Jul 11, 2024 08:32 AM Reporting Lab: [facility] [address] [address] Performing Lab: [facility] [address] [address] [place] BASIC METABOLIC PANEL (non-fast ing) CARBON DIOXIDE, TOTAL [MOLES/VOLU ME] IN SERUM OR PLASMA 28 meq/L 20 - 30 07/11 Specimen Type: SERUM No comment entered. Ordering Provider: POPEYE TRUJILLO A Report Released Date/Time: Jul 11, 2024 08:32 AM Reporting Lab: [facility] [address] [address] Performing Lab: [facility] [address] [address] [place] BASIC METABOLIC PANEL (non-fast ing) CREATININE [MASS/VOLUM E] IN SERUM OR PLASMA 1.07 mg/dL 0.50 - 1.40 07/11 Specimen Type: SERUM No comment entered. Ordering Provider: POPEYE TRUJILLO A Report Released Date/Time: Jul 11, 2024 08:32 AM Reporting Lab: [facility] [address] [address] Performing Lab: [facility] [address] [place] BASIC METABOLIC PANEL (non-fast ing) GLOMERULAR FILTRATION RATE/1.73 SQ M.PREDICTED [VOLUME RATE/AREA] IN SERUM, PLASMA OR BLOOD BY CREATININE- BASED FORMULA (CKD-EPI 2020) 71 mL/min 60 07/11 Specimen Type: SERUM No comment entered. Ordering Provider: POPEYE TRUJILLO A Report Released Date/Time: Jul 11, 2024 08:32 AM Reporting Lab: [facility] [address] Performing Lab: [facility] [address] [place] LIVER FUNCTION PROTEIN [MASS/VOLUM E] IN SERUM OR PLASMA 7.7 g/dL 6.0 - 8.3 07/11 Specimen Type: SERUM No comment entered. Ordering Provider: POPEYE TRUJILLO A Report Released Date/Time: Jul 11, 2024 08:32 AM Reporting Lab: [facility] [address] [address] Performing Lab: [facility] [address] [address] [place] LIVER FUNCTION ALBUMIN [MASS/VOLUM E] IN SERUM OR PLASMA 3.5 g/dL 3.5 - 5.0 07/11 Specimen Type: SERUM No comment entered. Ordering Provider: POPEYE TRUJLILO A Report Released Date/Time: Jul 11, 2024 08:32 AM Reporting Lab: [facility] [address] [address] Performing Lab: [facility] [address] [place] LIVER FUNCTION ALKALINE PHOSPHATASE [ENZYMATIC ACTIVITY/VO LUME] IN SERUM OR PLASMA 90 U/L 40 - 150 07/11 Specimen Type: SERUM No comment entered. Ordering Provider: POPEYE TRUJILLO A Report Released Date/Time: Jul 11, 2024 08:32 AM Reporting Lab: [facility] [address] [facility] [address] Performing Lab: [facility] [address] [facility] [address] [place] LIVER FUNCTION ASPARTATE AMINOTRANSF ERASE [ENZYMATIC ACTIVITY/VO LUME] IN SERUM OR PLASMA 17 U/L 5 - 34 07/11 Specimen Type: SERUM No comment entered. Ordering Provider: POPEYE TRUJILLO A Report Released Date/Time: Jul 11, 2024 08:32 AM Reporting Lab: [facility] [address] [address] Performing Lab: [facility] [address] [address] [place] LIVER FUNCTION ALANINE AMINOTRANSF ERASE [ENZYMATIC ACTIVITY/VO LUME] IN SERUM OR PLASMA 12 U/L 07/11 Specimen Type: SERUM No comment entered. Ordering Provider: POPEYE TRUJILLO A Report Released Date/Time: Jul 11, 2024 08:32 AM Reporting Lab: [facility] [address] [address] Performing Lab: [facility] [place] [address] [address] [place] LIVER FUNCTION BILIRUBIN.T OTAL [MASS/VOLUM E] IN SERUM OR PLASMA 0.3 mg/dL 0.2 - 1.2 07/11 Specimen Type: SERUM No comment entered. Ordering Provider: POPEYE TRUJILLO A Report Released Date/Time: Jul 11, 2024 08:32 AM Reporting Lab: [facility] [address] [address] Performing Lab: [facility] [address] [place] HEMOGLOBI N A1C PANEL HEMOGLOBIN [...] Aug 15, 2023 02:27 PM Reporting Lab: [address] [address] Performing Lab: [address] [address] [place] MICROALBU MIN CREATININ E RATIO PANEL MICROALBUMI N/CREATININ E [MASS RATIO] IN URINE 10.2 mg/g 0 - 29.9 02/28 Specimen Type: URINE No comment entered. Ordering Provider: ISABEL ANAYA Report Released Date/Time: Aug 15, 2023 02:27 PM Reporting Lab: [address] [address] Performing Lab: [address] [address] [place] MICROALBU MIN CREATININ E RATIO PANEL MICROALBUMI N [MASS/VOLUM E] IN URINE 1.7 mg/dL 02/28 Specimen Type: URINE No comment entered. Ordering Provider: ISABEL ANAYA Report Released Date/Time: Aug 15, 2023 02:27 PM Reporting Lab: [address] [address] Performing Lab: [address] [address] [place] MICROALBU MIN CREATININ E RATIO PANEL CREATININE [MASS/VOLUM E] IN URINE 166.35 mg/dL 02/28 Specimen Type: URINE No comment entered. Ordering Provider: ISABEL ANAYA Report Released Date/Time: Aug 15, 2023 02:27 PM Reporting Lab: [place] [facility] [place] [facility] [address] [facility] [address] Performing Lab: [facility] [place] [facility] [address] [facility] [address] [place] Vital Signs Combined list of inpatient and outpatient Vital Signs [facility], ranging from 12 months to all on record, depending upon the facility. Vital Sign Value Date Comments Source SYSTOLIC BLOOD PRESSURE 124 07/17/2024 14:39:47 [place] DIASTOLIC BLOOD PRESSURE 84 07/17/2024 14:39:47 [place] PULSE OXIMETRY 99 07/17/2024 14:39:47 [place] WEIGHT 07/17/2024 14:39:47 [place] TEMPERATURE 97.6 07/17/2024 14:39:47 [place] PULSE 87 07/17/2024 14:39:47 [facility] SYSTOLIC BLOOD PRESSURE 128 03/06/2024 15:09:07 [place] DIASTOLIC BLOOD PRESSURE 74 03/06/2024 15:09:07 [place] PULSE OXIMETRY 98 03/06/2024 15:09:07 [place] WEIGHT 212 03/06/2024 15:09:07 [place] BMI 28 kg/m2 03/06/2024 15:09:07 [place] TEMPERATURE 97.6 03/06/2024 15:09:07 [place] PULSE 66 03/06/2024 15:09:07 [place] Encounters Combined list of: 1) Encounters from Department of Veterans Affairs facilities going backup to the last 18 months, not all [place] inpatient encounters are included; 2) Encounters from the [facility] facilities going backup to 280 months. Location Location Details Encounter Type Encounter Number Reason For Visit Attending Provider ADM Date DC Date Status Disposition Source [facility] Outpatient Encounter [id number] 04/12 [facility] Outpatient Encounter [id number] 04/12 [facility] Encounter [id number] 04/13 [facility] Encounter [id number] 04/16 [facility] Encounter [id number] 05/08 [facility] Encounter [id number] 05/08 [facility] Encounter [id number] 05/22 [facility] Encounter [id number] 06/29 [facility] Encounter [id number] 07/19 [facility] Encounter [id number] 07/20 [facility] [place] OFF[facility] O/P EST MOD 30 MIN [id number] Diagnos is: ICD-10- CM R60.9 Edema, unspeci fied ANAYA,VICT ORIA J 08/14 [place] [facility] En[facility] [id number] 08/20 [facility] Encounter [id number] 09/25 [facility] Encounter [id number] 11/01 [facility] Encounter [id number] 11/06 [facility] Encounter [id number] 11/15 [facility] Encounter [id number] 11/17 [facility] Encounter [id number] 11/18 [facility] Encounter [id number] 11/18 [facility] Encounter [id number] 11/19 [facility] Encounter [id number] 11/21 [facility] Encounter [id number] 11/22 [facility] Outpatient Encounter [id number] 11/26 [facility] OFFICE O/P NEW LOW 30 MIN [id number] Diagnos is: ICD-10- CM E11.51 Type 2 diabete s w diabeti c periphe ral angiopa th w/o MIN Garza F 12/18 [place] [facility] Outpatient Encounter [id number] 01/28 [facility] [place] DIABETIC CUSTOM MOLDED SHOE [id number] Diagnos is: ICD-10- CM 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 [place] 40 MIN [id number] 1BY. 94 Diagnos is: ICD-10- CM E11.9 Type 2 diabete s mellitu s without complic ations NOÉ TRUJILLOD A 03/06 [place] [facility] ADMN SARSCOV2 VACC 1 DOSE [id number] 1. NOÉ TRUJILLO VID A 03/06 [facility] Outpatient Encounter [id number] 05/23 [facility] Outpatient Encounter [id number] 05/26 [facility] Outpatient Encounter [id number] 06/23 [facility] [place] OFF[facility] O/P EST HI 40 MIN [id number] 1BY. 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 tis of left lower limb NOÉ TRUJILLO VID A 07/17 [place] [facility] Outpatient Encounter [id number] 07/17 [facility] Outpatient Encounter [id number] 07/17 [facility] Outpatient Encounter [id number] 07/17 [facility] Outpatient Encounter [id number] 07/21 [facility] Outpatient Encounter [id number] 07/29 [facility] Social History Combined list of available smoking, tobacco, and other social history from Department of Defense and Veterans Affairs facilities. Social History Type Response Date Comment Sour e Tobacco smoking status [facility] VA-TOBACCO NEVER USED 03/06/2024 [facility] History of tobacco use VA-TOBACCO NEVER USED 02/14/2023 [facility] History of tobacco use VA-TOBACCO NEVER USED 01/27/2022 [facility] History of tobacco use VA-TOBACCO NEVER USED 01/27/2021 [facility] History of tobacco use VA[facility]TOBACCO NEVER USED [facility] History of tobacco use LIFETIME NON-TOBACCO USER 11/08/2017 [facility] History of tobacco use LIFETIME NON-TOBACCO USER 11/08/2016 [facility] History of tobacco use LIFETIME NON-TOBACCO USER 10/21/2015 [facility] History of tobacco use LIFETIME NON-TOBACCO USER 09/10/2012 [facility]
--- OUTSIDE RECORDS SUMMARY | 2024-10-04 10:13 | XMS_ITS | Encounter Summary ---
Author Organization [facility] Address [address] [place] [address] Care Team Providers Care Fpga Design Engineer Name Role Phone Jagjit Hancock Primary Care Provider Ggii price Encounter Details Date Type Department Care Team (Latest Contact Info) Description 08/08/2024 Lab Requisition [facility] - Main Lab [address] [place] [phone] Rebecca Gomez MD [address] [place] [phone] Essential (primary) hypertension; Anemia, unspecified; Cellulitis, unspecified; [...] Comprehensive metabolic panel (08/11/2024 6:40 AM EDT) [facility] Signature Sodium 134 133 - 145 mmol/L LAB CHEMISTRY METHOD 08/11/2024 11:47 AM [facility] Potassium 3.7 3.5 - 5.5 mmol/L LAB CHEMISTRY METHOD 08/11/2024 11:47 AM [facility] Chloride 96 96 - 110 mmol/L LAB CHEMISTRY METHOD 08/11/2024 11:47 AM [facility] CO2 26 21 - 32 mmol/L LAB CHEMISTRY METHOD 08/11/2024 11:47 AM [facility] Anion Gap 12(H) 3 - 11 LAB CHEMISTRY METHOD 08/11/2024 11:47 AM [facility] Glucose 94 70 - 100 mg/dL LAB CHEMISTRY METHOD 08/11/2024 11:47 AM [facility] BUN 28(H) 5 - 25 mg/dL LAB CHEMISTRY METHOD 08/11/2024 11:47 AM [facility] Creatinine 1.09 0.70 - 1.30 mg/dL LAB CHEMISTRY METHOD 08/11/2024 11:47 AM [facility] eGFR 70 >=60 mL/min/1. 73m2 LAB CHEMISTRY METHOD 08/11/2024 11:47 AM [facility] Comment:Calculation based on the??Chronic Kidney Disease Epidemiology Collaboration (CKD-EPI) equation refit??without adjustment for race. BUN/Creatinine Ratio 25.7 LAB CHEMISTRY METHOD 08/11/2024 11:47 AM [facility] Calcium 9.3 8.5 - 10.5 mg/dL LAB CHEMISTRY METHOD 08/11/2024 11:47 AM [facility] AST (SGOT) 24 10 - 42 unit/L LAB CHEMISTRY METHOD 08/11/2024 11:47 AM [facility] ALT (SGPT) 25 10 - 60 unit/L LAB CHEMISTRY METHOD 08/11/2024 11:47 AM EDT [facility] Alkaline Phosphatase 86 42 - 121 unit/L LAB CHEMISTRY METHOD 08/11/2024 11:47 AM EDT [facility] Total Protein 6.8 6.0 - 8.0 g/dL LAB CHEMISTRY METHOD 08/11/2024 11:47 AM EDT [facility] Albumin 3.3 3.2 - 5.0 g/dL LAB CHEMISTRY METHOD 08/11/2024 11:47 AM EDT [facility] Total Bilirubin 0.5 0.0 - 1.4 mg/dL LAB CHEMISTRY METHOD 08/11/2024 11:47 AM EDT [facility] Blood Venous blood specimen / Unknown Venipuncture / Unknown 08/11/2024 6:40 AM EDT 08/11/2024 11:02 AM EDT Rebecca Gomez MD LAB BLOOD ORDERABLES Final Resul t [facility] [address] [place] [address], * (ABNORMAL) Complete blood count (08/11/2024 6:40 AM EDT) WBC 4.7(L) 4.8 - 10.8 K/[facility] LAB HEMETOLOGY METHOD 08/11/2024 11:54 AM EDT [facility] RBC 4.50 4.50 - 5.50 M/[facility] LAB HEMETOLOGY METHOD 08/11/2024 11:54 AM EDT [facility] Hemoglobin 12.6(L) 13.5 - 17.5 g/dL LAB HEMETOLOGY METHOD 08/11/2024 11:54 AM [facility] Hematocrit 37.8(L) 42.0 - 54.0 % LAB HEMETOLOGY METHOD 08/11/2024 11:54 AM EDT [facility] MCV 84.6 79.0 - 98.0 FL LAB HEMETOLOGY METHOD 08/11/2024 11:54 AM EDT [facility] MCH 28.2 27.0 - 32.0 pcg LAB HEMETOLOGY METHOD 08/11/2024 11:54 AM EDT [facility] MCHC 33.3 32.0 - 37.0 g/dL LAB HEMETOLOGY METHOD 08/11/2024 11:54 AM EDT [facility] RDW 13.9 11.0 - 15.0 % LAB HEMETOLOGY METHOD 08/11/2024 11:54 AM EDT [facility] Platelets 231 130 - 400 K/mcL LAB HEMETOLOGY METHOD 08/11/2024 11:54 AM EDT [facility] MPV 9.6 7.0 - 11.0 FL LAB HEMETOLOGY METHOD 08/11/2024 11:54 AM EDT [facility] NRBC 0.0 <1.0 % LAB HEMETOLOGY METHOD 08/11/2024 11:54 AM EDT [facility] NRBC Absolute 0.00 <0.10 K/mcL LAB HEMETOLOGY METHOD 08/11/2024 11:54 AM EDT [facility] Blood Venous blood specimen / Unknown Venipuncture / Unknown 08/11/2024 6:40 AM EDT 08/11/2024 11:02 AM EDT us Rebceca Gomez MD LAB BLOOD ORDERABLES Final Resul t [facility] [address] [place] [address], documented in this encounter Visit Diagnoses Diagnosis Essential (primary) hypertension Unspecified essential hypertension Anemia, unspecified Cellulitis, unspecified Type 2 diabetes mellitus without complications (CMS/HCC V24, CMS/HCC V28) documented in this encounter Additional Health Concerns Infection Onset Date Last Indicated Resolved Time C. difficile 08/02/2024 08/02/2024 08/26/2024 7:06 PM EDT documented as of this encounter Care Teams Fpga Design Engineer Relationship Specialty Start Date End Date Jagjit Hancock PA [address] [place] [address] [place] [phone] PCP - General Physician Keypuncher 07/23/24 documented as of this encounter
--- OUTSIDE RECORDS SUMMARY | 2024-10-04 10:13 | XMS_ITS ---
Author Organization [facility] Address [address] [place] [address] Care Team Providers Care Rehabilitation Attendant Name Role Phone Marina MCDANIELS, Nubia Zelaya Primary Care Provider Un available Sebastián Sussy Unavailable [phone] Encounters Encounter Location Date Provider Diagnosis [address] [place] [address] [address] 09/04/2024 Sussy Lowery Plan Of Treatment Next Appt Details Provider Name:Sussy Patterson Sebastián , 12/11/2024 03:00:00 PM, [address] [place] [address], [phone], Progress Notes * Tobin BEYDOB:1945 ( 79 yo M)Acc No.[id number]:09/04/2024 Progress Note Patient:?Tobin BEY Provider:?Sussy Lowery DPM :1945???Age:79 Y???Sex:Male Romeo e:09/04/2024 Address:[address] Vel[address] [id number] Pcp:Jayjay Graham Subjective: * Chief Complaints: * ??? * Medical History:? Objective: * Vitals:? Assessment: Plan: * Treatment: * Images: * The named appointment provid er may or may not be the originator of this progress note, and it is not deemed complete until electronically signed by the appointment provider. Sign off status: Pending * Provider:Hanna Lowery DPM Date:?2024 Generated for Tu schrader/Yang/Jean on:?10/04/2024 10:13 AM EDT
--- OUTSIDE RECORDS SUMMARY | 2024-10-04 10:13 | XMS_ITS | Patient Health Record ---
Author Organization [facility] Address [address] [facility] [place] [address] Care Team Providers Care Talent Partner Name Role Phone Marina MCDANIELS, Nubia Zelaya Primary Care Provider Un available Black, Sussy Unavailable [phone] Allergies No Known Allergies Results Component Value Reference Range Notes HEMOGLOBIN A1C (GLYCOHEMOGLO BIN) Reviewed date:09/01/2024 01:04:59 PM Interpretation: Performing Lab: Notes/Report: HEMOGLOBIN A1C % (HH) 6.0 HEMOGLOBIN A1C (GLYCOHEMOGLO BIN) Reviewed date:06/02/2024 03:54:41 PM Interpretation: Performing Lab: Notes/Report: HEMOGLOBIN A1C % (HH) 5.8 Reason For Referral No Information Medications Medication [...] Problem Acquired hammer toe of right foot (246027024594413 5) Other hammer toe(s) (acquired), right foot (M20.41) Active confirmed Problem Acquired hammer toe of left foot (958173006909724 3) Other hammer toe(s) (acquired), left foot (M20.42) Active confirmed Problem Ulcer of toe (142630371) Non-pressure chronic ulcer of other part of left foot limited to breakdown of skin (L97.521) Active confirmed Problem Nonstageable pressure ulcer of left foot (786400242561015 05) 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) Active confirmed Problem Ulcer of heel (528175601) 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) Active confirmed Problem Polyneuropathy due to type 2 diabetes mellitus (268674950) Type 2 diabetes mellitus with diabetic polyneuropathy (E11.42) Active confirmed Problem Ulcer of heel (202040180) Neuropathic ulcer of right heel, limited to breakdown of skin (L97.411) Active confirmed Response to treatment Vital Signs Blood pressure diastolic 78 mm Hg 09/01/2024 Height 6 ft in 09/01/2024 Blood pressure systolic 121 mm Hg 09/01/2024 Weight 212 lbs 09/01/2024 BMI 28.75 kg/m2 09/01/2024 Procedures Procedure Date Ordered Date Performed Result Body Sit e 00752-EFDYFRZ NAIL, 6 OR MORE 10/25/2023 N/A 67674-UJSM SKIN LESIONS, OVER 4 10/25/2023 N/A 62199-QBKDIQD NAIL, 6 OR MORE 02/14/2024 N/A 21904- Debride <25 sq cm 02/14/2024 N/A 41096-MGBE SKIN LESIONS, OVER 4 02/14/2024 N/A 36330-IFJUBIM NAIL, 6 OR MORE 06/02/2024 N/A 42620-KLKU SKIN LESIONS, OVER 4 06/02/2024 N/A 51724-XOSBZES NAIL, 6 OR MORE 09/01/2024 N/A 41489-BTRM SKIN LESIONS, OVER 4 09/01/2024 N/A Encounters Encounter Location Date Provider Diagnosis [address] [address] 10/25/2023 Sussy Black Type 2 diabetes mellitus with diabetic polyneuropathy E11.42 ; Tinea unguium B35.1 ; Other hammer toe(s) (acquired), left foot M20.42 and Other hammer toe(s) (acquired), right foot M20.[address] [address] 11/19/2023 Sussy Black 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 and Type 2 diabetes mellitus with diabetic polyneuropathy E11.[address] [address] 02/14/2024 Sussy Black 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 ; Other hammer toe(s) (acquired), right foot M20.41 ; Type 2 diabetes mellitus with diabetic polyneuropathy E11.42 ; Tinea unguium B35.1 and Other hammer toe(s) (acquired), left foot M20.[address] [address] 06/02/2024 Sussy Black Type 2 diabetes mellitus with diabetic polyneuropathy E11.42 and Tinea unguium B35.[address] [facility] [address] 09/01/2024 Sussy Lowery Type 2 diabetes mellitus with diabetic polyneuropathy E11.42 ; Tinea unguium B35.1 and Tinea pedis of both feet B35.[address] [address] 11/19/2023 Sussyjesus Lowery [facility] [address] 06/03/2024 [facility] [address] 08/26/2024 [facility] [address] 09/10/2024 Sussy Lowery Assessments Encounter Date Diagnosis (ICD Code) Assessment Notes Treatment Notes Treatment Clinical Notes Section Notes 10/25/2023 Type 2 diabetes mellitus with diabetic polyneuropathy (ICD-10 - E11.42) 11/19/2023 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 breakdown of skin (ICD-10 - L97.421) [facility] center 11/19/2023 Type 2 diabetes mellitus with [...] Date *Wound Culture 12/18/2019 *Wound Culture 11/24/2021 11424-IMAYYVK NAIL, 6 OR MORE 08/25/2021 72783-AEDVYWB NAIL, 6 OR MORE 12/18/2019 53357-UCTIMSP NAIL, 6 OR MORE 11/24/2021 69749-QOWJMFV NAIL, 6 OR MORE 02/23/2022 45834-BUPFSSD NAIL, 6 OR MORE 06/08/2022 70180-XHDXSPG NAIL, 6 OR MORE 09/11/2022 65339-MHFPRJW NAIL, 6 OR MORE 12/11/2022 56621-ZFBVLAN NAIL, 6 OR MORE 09/18/2019 42317-HJCBZRG NAIL, 6 OR MORE 02/23/2020 52034-KZPHRBD NAIL, 6 OR MORE 05/13/2020 55623-DFGDMWW NAIL, 6 OR MORE 08/12/2020 14404-XKFFMVV NAIL, 6 OR MORE 11/18/2020 55550-OKBVPIW NAIL, 6 OR MORE 02/17/2021 49224-DYHDQSY NAIL, 6 OR MORE 03/15/2023 31241-EQRMOXB NAIL, 6 OR MORE 06/21/2023 74599-TNOVLQT NAIL, 6 OR MORE 10/25/2023 87908-VWIZNQW NAIL, 6 OR MORE 02/14/2024 58202-BEYBAJE NAIL, 6 OR MORE 06/02/2024 42011-RZWOFIB NAIL, 6 OR MORE 09/01/2024 70108-SXONCVU NAIL, 6 OR MORE 03/06/2019 46329-TPUNSGU NAIL, 6 OR MORE 06/05/2019 67256-UGRWKWR NAIL, 6 OR MORE 02/21/2018 09747-BNDHBXN NAIL, 6 OR MORE 05/30/2018 59304-WUGBBWT NAIL, 6 OR MORE 08/29/2018 49537-VVRWSTP NAIL, 6 OR MORE 12/05/2018 24086-DPQCZJG NAIL, 6 OR MORE 12/22/2015 38504-VJKFHEV NAIL, 6 OR MORE 03/23/2016 52212-ZKBRIRA NAIL, 6 OR MORE 06/22/2016 92432-GWZLHIX NAIL, 6 OR MORE 10/05/2016 45212-ZOYMIYM NAIL, 6 OR MORE 01/04/2017 27762-CGWCDUG NAIL, 6 OR MORE 05/10/2017 95609-UBRUVIF NAIL, 6 OR MORE 08/09/2017 49728-TANCSWI NAIL, 6 OR MORE 11/23/2017 85419-HQLQFSD NAIL, 6 OR MORE 04/17/2011 75614-DZVLKAN NAIL, 6 OR MORE 07/20/2011 40921-DYWOWNN NAIL, 6 OR MORE 08/17/2011 94802-MQVOUFS NAIL, 6 OR MORE 09/19/2011 23317-CWSATKV NAIL, 6 OR MORE 12/25/2011 45898-OAYPLHW NAIL, 6 OR MORE 03/13/2012 92707-ZGXTGWX NAIL, 6 OR MORE 06/19/2012 10800-NQJNFSL NAIL, 6 OR MORE 09/16/2012 71641-WOODNWC NAIL, 6 OR MORE 12/04/2012 47455-SEORIWB NAIL, 6 OR MORE 03/12/2013 29245-VEEYVDU NAIL, 6 OR MORE 06/18/2013 98667-FGVZEYA NAIL, 6 OR MORE 09/18/2013 72414-JBPKZZT NAIL, 6 OR MORE 12/18/2013 69029-JUNWRQK NAIL, 6 OR MORE 03/19/2014 75173-XAFXTHU NAIL, 6 OR MORE 09/17/2014 07204-WZYLBGA NAIL, 6 OR MORE 12/17/2014 31675-DWHMTQS NAIL, 6 OR MORE 06/18/2014 23222-VYOBHQP NAIL, 6 OR MORE 03/24/2015 55783-JVYLLHM NAIL, 6 OR MORE 06/17/2015 57824-NVFAAQM NAIL, 6 OR MORE 09/16/2015 09194-Iplcvuri Plate 06/18/2014 23359-Oufduzat Plate 12/17/2014 53708-Utiotzgc Plate 12/18/2013 15671-Crlpmdzf Plate 09/18/2013 80866-Snfxvuyc Plate 03/12/2013 36249-Cgmkynlj Plate 01/04/2017 10589-Kvfbiesu Plate 06/21/2023 45917- Debride <25 sq cm 02/14/2024 23170- Debride <25 sq cm 08/25/2021 89422- Debride <25 sq cm 08/12/2020 76653- Debride <25 sq cm 04/05/2020 04398- Debride <25 sq cm 05/13/2020 29105- Debride <25 sq cm 02/23/2020 40984- Debride <25 sq cm 06/08/2022 86914- Debride <25 sq cm 11/24/2021 96752- Debride <25 sq cm 12/08/2021 39030- Debride <25 sq cm 01/05/2022 21989- Debride <25 sq cm 02/23/2022 91272- Debride <25 sq cm 12/04/2012 13011- Debride <25 sq cm 12/25/2011 84390- Debride <25 sq cm 09/19/2011 16605- Debride <25 sq cm 08/17/2011 90966- Debride <25 sq cm 07/20/2011 69484- Debride <25 sq cm 12/18/2013 80082- Debride <25 sq cm 03/19/2014 37352-XIEEDBV SKIN/TISSUE 12/18/2019 29404-MCLGWAW SKIN/TISSUE 01/05/2020 89012-NRHXFOA SKIN/TISSUE 01/19/2020 62930-MHYILFI SKIN/TISSUE 02/05/2020 46629-MGTM SKIN LESIONS, OVER 4 09/18/19 20 37022-XWWE SKIN LESIONS, OVER 4 06/05/19 20 40323-CIJT SKIN LESIONS, OVER 4 03/06/20 19 09724-XPYT SKIN LESIONS, OVER 4 12/06/19 19 75525-OJVG SKIN LESIONS, OVER 4 08/30/19 19 94620-NFXR SKIN LESIONS, OVER 4 05/30/19 38307-NAKL SKIN LESIONS, OVER 4 01/05/20 49109-VHDY SKIN LESIONS, OVER 4 02/22/20 18 00620-EWJU SKIN LESIONS, OVER 4 11/24/19 18 45813-NNHK SKIN LESIONS, OVER 4 05/10/20 02540-TXRC SKIN LESIONS, OVER 4 08/10/19 18 65707-CCWI SKIN LESIONS, OVER 4 02/24/20 06107-RPIM SKIN LESIONS, OVER 4 11/25/19 65297-DIJJ SKIN LESIONS, OVER 4 06/08/19 60325-BQPQ SKIN LESIONS, OVER 4 09/12/19 49474-LGHA SKIN LESIONS, OVER 4 03/15/20 27190-VKWN SKIN LESIONS, OVER 4 12/12/19 67113-MOLP SKIN LESIONS, OVER 4 02/23/20 64664-LVBZ SKIN LESIONS, OVER 4 12/18/19 67650-DJVT SKIN LESIONS, OVER 4 05/13/20 18907-GDRN SKIN LESIONS, OVER 4 08/13/19 62660-DQTY SKIN LESIONS, OVER 4 11/19/19 91482-ZQCX SKIN LESIONS, OVER 4 08/26/19 85214-BSWA SKIN LESIONS, OVER 4 02/18/20 70365-ZHTB SKIN LESIONS, OVER 4 02/14/20 24 04383-KGIW SKIN LESIONS, OVER 4 06/02/19 34818-ZJNW SKIN LESIONS, OVER 4 06/21/19 78525-KRHI SKIN LESIONS, OVER 4 10/25/19 24 65221-YPWH SKIN LESIONS, OVER 4 09/02/19 65295-MRUN SKIN LESIONS, 2 TO 4 06/22/19 17 08388-QUTF SKIN LESIONS, 2 TO 4 10/06/19 17 02405-TVVJ SKIN LESIONS, 2 TO 4 03/23/20 16 00249-EKJR SKIN LESIONS, 2 TO 4 12/22/19 16 78090-VGGC SKIN LESIONS, 2 TO 4 12/18/19 15 60152-GQCR SKIN LESIONS, 2 TO 4 03/24/20 15 00924-TKIU SKIN LESIONS, 2 TO 4 09/16/19 16 71580-EQRO SKIN LESIONS, 2 TO 4 06/17/19 16 Next Appt Details Provider Name:Sussy Lowery , 12/11/2024 03:00:00 PM, [address] [facility], [place], [address], Insurance Providers Payer Name Payer Address Payer Phone Subscriber Number Group Number Insured Name Patient Relationship to Insured Coverage Start Date Coverage End Date [employer] [address] [place] [address] [id number] Tobin Bey Self - patient is the insured A[employer] Secondary to Medicare [address] [place] [address] [id number] Tobin Bey Self - patient is the insured Medical (General) History Medical History History ICD Code reflux mumps measles chicken pox hypertension diabetes mellitus Macular degeneration Surgical History Surgery Date(Month/Year) cataract removal left total hip replacement 02/23/2015 R shoulder replacement 03/27/2017 Hospitalization History Reason Date(Month/Year) leg infection 08/19
--- OUTSIDE RECORDS SUMMARY | 2024-10-04 10:13 | XMS_ITS ---
Author Organization [facility] Address [address] [place] [address] Care Team Providers Care Product Picker Name Role Phone Marina MCDANIELS, Nubia Primary Care Provider Daryn Brito Jr [phone] Allergies No Known Allergies REASON FOR VISIT patient presents today for colon screening Medications Medication SIG (Take, Route, Frequency, Duration) Notes Start Date End Date Status hydrALAZINE HCl 50mg 1 tablet Orally once a day Active Losartan Potassium-HCTZ 100-25mg 1 tablet Orally Once a day A ctive Metoprolol Succinate ER 100mg 1 tablet Orally Once a day A ctive Ozempic (1 MG/DOSE) 4 MG/3ML as directed Subcutaneous Act telly Aspir-81 81mg 1 tablet Orally Once a day Active Naproxen 500mg 1 tablet Orally Twic e a day Active Rosuvastatin Calcium Active Problems Problem Type SNOMED Code ICD Code Onset Dates Problem Status W/U Status Risk Notes Problem [id number] Aspirin long-term use (Z79.82) Active confirmed Vital Signs Blood pressure systolic 111 mm Hg 09/12/19 25 Blood pressure diastolic 11 mm Hg 025 Height 72 in 09/11/2024 Weight 193 lbs 09/11/2024 BMI 26.17 kg/m2 09/11/2024 Encounters Encounter Location Date [facility] [address] [place] [phone] 09/11/2024 Daryn Pimentel Jr Colon cancer screening Z12.11 and Aspirin long-term use Z79.82 Assessments Encounter Date Diagnosis (ICD Code) Assessment [...] with multiple comorbid conditions. Plan Of Treatment Treatment Notes Assessment Notes Colon cancer screening Colonoscopy disch arge material was printed Next Appt Details Follow Up: 1 Year, Reason: Progress Notes * REUBEN AMOS ADOB:1945 (79 yo M)Acc No.[id number]:09/11/2024 Progress Notes Patient:?REUBEN AMOS Provider:?Daryn Pimentel MD :1945???Age:79 Y???Sex:Male Romeo e:09/11/2024 Address:[address] [place] [address] Pcp:Nubia Gray MD Subjective: * Chief Complaints: * ???1. Patient presents today for colon screening. * HPI: ???New symptom(s):? Reuben is a pleasant 79-year-old man seen today in consultation of his primary care provider's request for screening colonoscopy. His last colonoscopy was in October 2019. Upper endoscopy was done because of iron deficiency anemia and showed no Alejandro's esophagus, H. pylori or celiac disease. Colonoscopy showed 2 tubular adenomas. The recommendation at that time was for as needed follow-up based on his age. Since we saw him last, he has had a recent hospitalization in [place] for leg cellulitis possibly relating to use of compression stockings. Following this, he required a rehab stay for approximately 1 month, during which time he was diagnosed with C. difficile infection. This is also been complicated by open wounds on his buttocks for which he is being seen at the wound clinic. He also reports some problems with renal insufficiency and has kidney evaluation scheduled. He has no complaints of rectal bleeding, abdominal or rectal pain, or change in his bowel habits. Stools have firmed up since his C. difficile infection resolved. * ROS:?General/Constitutional:?Change in appetite?denies.?Fatigue?denies.?ENT:?Patient denies?difficulty swallowing.?Respiratory:?Patient denies?shortness of breath.?Cardiovascular:?Patient denies?chest pain.?Gastrointestinal:?Comments?See HPI for details.?Genitourinary:?Difficulty urinating?denies.?Incontinence?denies.?Musculoskeletal:?Patient denies?muscle aches.?Skin:?Patient denies?pruritis.?Neurologic:?Patient denies?low back pain.?Psychiatric:?Patient denies?mental or physical abuse.? * Medical History:?Gerd, Hyper tension, Torn ligament in the right knee, Colonoscopy 11/14, tubular adenomas x 2, follow-up optional based on age, EGD 11/14, no Alejandro's esophagus, H. pylori, or celiac disease, Diabetes mellitus, Kidney disease, Cellulitis, Chronic ulcer of buttocks. * Surgical History:?cataract-l ens implants , left hip replacement , right shoulder replacement . * Family History:?Father: dece ased.?Mother: .? He has no family history of colon cancer. * Social History:?Tobacco Use:?Tobacco Use/Smoking?Are you a: nonsmoker.?Drugs/Alcohol:?Alcohol Screen?Points: 1, Interpretation: Negative.?Miscellaneous:?Marital status: . Occupation: retired. * Medications:?Taking Rosuvast atin Calcium , Taking Ozempic (1 MG/DOSE) 4 MG/3ML Solution Pen-injector as directed Subcutaneous , Taking Metoprolol Succinate ER 100mg Tablet Extended Release 24 Hour 1 tablet Orally Once a day , Taking Aspir-81 81mg Tablet Delayed Release 1 tablet Orally Once a day , Taking Naproxen 500mg Tablet 1 tablet Orally Twice a day , Taking Losartan Potassium-HCTZ 100-25mg Tablet 1 tablet Orally Once a day , Taking hydrALAZINE HCl 50mg Tablet 1 tablet Orally once a day , Discontinued metFORMIN HCl 1000mg Tablet 1 tablet with meals Orally Twice a day , Discontinued Trulicity 0.75 MG/0.5ML Solution Pen-injector as directed Subcutaneous as directed , Discontinued Januvia 50 MG Tablet 1 tablet Orally Once a day , Discontinued MiraLax (colon prep) 8.3 ounce ((238) grams mixed with Gatorade or Crystal Light orally begin at 5:00 p.m. the day before the procedure , Medication List reviewed and reconciled with the patient * Allergies:?N.K.D.A. Objective: * Vitals:?Wt:193lbs, Ht: 72 in , BMI:26.17Index, BP:111/11mm Hg, Wt-k.54. * Examination: ???General Examination: ?GENERAL APPEARANCE:?in no acute distress.?HEAD:?normocephalic.?EYES:?sclera non-icteric.?ORAL CAVITY:?mucosa moist.?NECK/THYROID:?no lymphadenopathy.?SKIN:?anicteric.?HEART:?S1, S2 normal, no murmurs.?LUNGS:?clear to auscultation bilaterally.?CHEST:?normal shape and expansion.?ABDOMEN:?soft, nontender, nondistended, bowel sounds present, no organomegaly .?EXTREMITIES:?no clubbing, cyanosis, or edema.?PSYCH:?cognitive function intact.? Assessment: * Assessment: 1.?Aspirin long-term use - Z 79.82 (Primary)???2.?Colon cancer screening - Z12.11??? We discussed colonoscopy tobar[facility] mott. Based on his current ongoing medical issues and overall clinical condition I have recommended deferring this for the time being. If his condition does not improve this can be arranged and he will need to stop aspirin 1 week before the procedure we discussed risks and benefits of the procedure today.? We discussed that colorectal cancer screening is optional after age 75, especially in patients with multiple comorbid conditions. Plan: * Treatment: * Procedure Codes:?G9903 Pt sc rn tbco id as non user, G9744 PATIENT NOT ELIG D/T ACTIVE DX HTN * Follow Up:?1 Year * * Sign off status: Completed true * Provider:?Daryn Pimentel MD Date:?0 09/11/2024 Generated for Tu schrader/Yang/eTransmitting on:?10/04/2024 10:12 AM EDT History and Physical Notes * HPI (History of Present Illness) Category Sub-Category Detail Notes Category Not es New symptom(s) Reuben is a pleasant 79-year-old man seen today in consultation of his primary care provider's request for screening colonoscopy. His last colonoscopy was in October 2019. Upper endoscopy was done because of iron deficiency anemia and showed no Alejandro's esophagus, H. pylori or celiac disease. Colonoscopy showed 2 tubular adenomas. The recommendation at that time was for as needed follow-up based on his age. Since we saw him last, he has had a recent hospitalization in [place] for leg cellulitis possibly relating to use of compression stockings. Following this, he required a rehab stay for approximately 1 month, during which time he was diagnosed with C. difficile infection. This is also been complicated by open wounds on his buttocks for which he is being seen at the wound clinic. He also reports some problems with renal insufficiency and has kidney evaluation scheduled. He has no complaints of rectal bleeding, abdominal or rectal pain, or change in his bowel habits. Stools have firmed up since his C. difficile infection resolved. Examination Category Sub-Category Detail Notes Category Not es General Examination GENERAL APPEARANCE: in no acute di stress HEAD: normocephalic EYES: sclera non-icteric NECK/THYROID: no lymphadenopathy HEART: S1, S2 normal, no mu rmurs CHEST: normal shape and exp ansion LUNGS: clear to auscultatio n bilaterally ABDOMEN: soft, nontender, non distended, bowel sounds present, no organomegaly SKIN: anicteric EXTREMITIES: no clubbing, cyanosi s, or edema PSYCH: cognitive function i ntact ORAL CAVITY: mucosa moist
--- OUTSIDE RECORDS SUMMARY | 2024-10-04 10:13 | XMS_ITS ---
Author Organization [facility] Address [address] [place] [address] Care Team Providers Care Desizing Machine Operator Head End Name Role Phone Marina MCDANIELS, Nubia Primary Care Provider Daryn Brito Jr Encounters Encounter Location Date Provider Diagnosis [facility] [address] [place] [address] 05/30/2024 Daryn Pimentel Jr Plan Of Treatment No Information Progress Notes * REUBEN AMOSDOB:1945 ( 78 yo M)Acc No.[id number]:05/30/2024 Patient:?REUBEN AMOS :1945???Age:78 Y???Sex:Male Address: [place] [address] * true * Date:? Generated for Duanei raciel/Yang/eTransmitting on:?10/04/2024 10:12 AM EDT
--- OUTSIDE RECORDS SUMMARY | 2024-10-04 10:14 | XMS_ITS | Encounter Summary ---
Author Organization [facility] Address [address] [place] [address] Care Team Providers Care Uniform Cap Operator Name Role Phone Jagjit Hancock Primary Care Provider Gigi price Encounter Details Date Type Department Care Team (Latest Contact Info) Description 07/26/[address] [facility] - Main Lab [address] [place] [phone] Rebecca Gomez MD [address] [place] [phone] Essential (primary) hypertension; Anemia, unspecified; Cellulitis, unspecified; [...] mmol/L LAB CHEMISTRY METHOD 07/28/2024 1:46 PM [facility] Potassium 4.3 3.5 - 5.5 mmol/L LAB CHEMISTRY METHOD 07/28/2024 1:46 PM [facility] Chloride 100 96 - 110 mmol/L LAB CHEMISTRY METHOD 07/28/2024 1:46 PM [facility] CO2 24 21 - 32 mmol/L LAB CHEMISTRY METHOD 07/28/2024 1:46 PM [facility] Anion Gap 12(H) 3 - 11 LAB CHEMISTRY METHOD 07/28/2024 1:46 PM [facility] Glucose 103(H) 70 - 100 mg/dL LAB CHEMISTRY METHOD 07/28/2024 1:46 PM [facility] BUN 28(H) 5 - 25 mg/dL LAB CHEMISTRY METHOD 07/28/2024 1:46 PM [facility] Creatinine 1.06 0.70 - 1.30 mg/dL LAB CHEMISTRY METHOD 07/28/2024 1:46 PM [facility] eGFR 72 >=60 mL/min/1. 73m2 LAB CHEMISTRY METHOD 07/28/2024 1:46 PM [facility] Comment:Calculation based on the??Chronic Kidney Disease Epidemiology Collaboration (CKD-EPI) equation refit??without adjustment for race. BUN/Creatinine Ratio 26.4 LAB CHEMISTRY METHOD 07/28/2024 1:46 PM [facility] Calcium 9.1 8.5 - 10.5 mg/dL LAB CHEMISTRY METHOD 07/28/2024 1:46 PM [facility] AST (SGOT) 19 10 - 42 unit/L LAB CHEMISTRY METHOD 07/28/2024 1:46 PM [facility] ALT (SGPT) 18 10 - 60 unit/L LAB CHEMISTRY METHOD 07/28/2024 1:46 PM [facility] Alkaline Phosphatase 88 42 - 121 unit/L LAB CHEMISTRY METHOD 07/28/2024 1:46 PM [facility] Total Protein 6.7 6.0 - 8.0 g/dL LAB CHEMISTRY METHOD 07/28/2024 1:46 PM [facility] Albumin 3.3 3.2 - 5.0 g/dL LAB CHEMISTRY METHOD 07/28/2024 1:46 PM [facility] Total Bilirubin 0.5 0.0 - 1.4 mg/dL LAB CHEMISTRY METHOD 07/28/2024 1:46 PM [facility] Blood Venous blood specimen / Unknown Venipuncture / Unknown 07/28/2024 7:32 AM EST 07/28/2024 11:16 AM EST Rebecca Gomez MD LAB BLOOD ORDERABLES Final Resul t [facility] [address] [place] [address], [place] [phone] * (ABNORMAL) Complete blood count (07/28/2024 7:32 AM EST) WBC 5.6 4.8 - 10.8 K/mcL LAB HEMETOLOGY METHOD 07/28/2024 1:32 PM [facility] RBC 4.50 4.50 - 5.50 M/mcL LAB HEMETOLOGY METHOD 07/28/2024 1:32 PM [facility] Hemoglobin 12.5(L) 13.5 - 17.5 g/dL LAB HEMETOLOGY METHOD 07/28/2024 1:32 PM [facility] Hematocrit 38.5(L) 42.0 - 54.0 % LAB HEMETOLOGY METHOD 07/28/2024 1:32 PM [facility] MCV 86.5 79.0 - 98.0 FL LAB HEMETOLOGY METHOD 07/28/2024 1:32 PM EST [facility] MCH 28.1 27.0 - 32.0 pcg LAB HEMETOLOGY METHOD 07/28/2024 1:32 PM EST [facility] MCHC 32.5 32.0 - 37.0 g/dL LAB HEMETOLOGY METHOD 07/28/2024 1:32 PM EST [facility] RDW 13.8 11.0 - 15.0 % LAB HEMETOLOGY METHOD 07/28/2024 1:32 PM EST [facility] Platelets 265 130 - 400 K/mcL LAB HEMETOLOGY METHOD 07/28/2024 1:32 PM EST [facility] MPV 9.7 7.0 - 11.0 FL LAB HEMETOLOGY METHOD 07/28/2024 1:32 PM EST [facility] NRBC 0.0 <1.0 % LAB HEMETOLOGY METHOD 07/28/2024 1:32 PM EST [facility] NRBC Absolute 0.00 <0.10 K/mcL LAB HEMETOLOGY METHOD 07/28/2024 1:32 PM [facility] Blood Venous blood specimen / Unknown Venipuncture / Unknown 07/28/2024 7:32 AM EST 07/28/2024 11:16 AM EST Rebecca Gomez MD LAB BLOOD ORDERABLES Final Resul t [facility] [address] [place] [address], documented in this encounter Visit Diagnoses Diagnosis [...] documented as of this encounter Care Teams Uniform Cap Operator Relationship Specialty Start Date End Date Jagjit Hancock PA [address] [place] [phone] PCP - General Physician [place] Laboratory Assistant 07/23/24 documented as of this encounter
--- OUTSIDE RECORDS SUMMARY | 2024-10-04 10:14 | XMS_ITS | Encounter Summary ---
Author Organization [facility] Address [address] [place] [address] Care Team Providers Care Cardiac/Vascular Sonographer Name Role Phone Jagjit Hancock Primary Care Provider Gigi price Encounter Details Date Type Department Care Team (Latest Contact Info) Description 07/23/2024 Lab Requisition [facility] [address] [facility] [place] [phone] Jagjit Hancock PA [address] [place] [phone] Hyperlipidemia, unspecified; Essential (primary) hypertension; Anemia, unspecified; [...] LAB CHEMISTRY METHOD 07/23/2024 1:[address] [facility] Blood Venous blood specimen / Unknown Venipuncture / Unknown 07/23/2024 8:56 AM EST 07/23/2024 10:27 AM EST Jagjit JOHNSON LAB BLOOD ORDERABLES Final Re sult Performing Organization Address City/[facility]/ZIP Co de Phone Number [facility] [address] [place] [address], [place] [phone] * (ABNORMAL) Folate (07/23/2024 8:56 AM EST) Pathologist [facility] Folate 17.7(H) 2.8 - 17.0 ng/ml LAB CHEMISTRY METHOD 07/23/2024 1:58 PM EST [facility] Blood Venous blood specimen / Unknown Venipuncture / Unknown 07/23/2024 8:56 AM EST 07/23/2024 10:27 AM EST Jagjit JOHNSON LAB BLOOD ORDERABLES Final Re sult Performing Organization Address City/[facility]/ZIP Co de Phone Number [facility] [address] [place] [address], [place] [phone] * Vitamin B12 (07/23/2024 8:56 AM EST) Pathologist [facility] Vitamin B-12 761 250 - 900 pcg/mL LAB CHEMISTRY METHOD 07/23/2024 1:58 PM EST [facility] Blood Venous blood specimen / Unknown Venipuncture / Unknown 07/23/2024 8:56 AM EST 07/23/2024 10:27 AM EST Jagjit JOHNSON LAB BLOOD ORDERABLES Final Re sult Performing Organization Address City/[facility]/ZIP Co de Phone Number [facility] [address] [place] [address], [place] [phone] * Vitamin D 25 hydroxy (07/23/2024 8:56 AM EST) Vit D, 25-Hydroxy 41.0 30.0 - 80.0 ng/mL LAB CHEMISTRY METHOD 07/23/2024 1:34 PM EST [facility] Blood Venous blood specimen / Unknown Venipuncture / Unknown 07/23/2024 8:56 AM EST 07/23/2024 10:27 AM EST Jagjit JOHNSON LAB BLOOD ORDERABLES Final Re sult Performing Organization Address [facility]/ZIP Co de Phone Number [facility] [address] [place] [address], [place] [phone] * (ABNORMAL) Hemoglobin A1c (07/23/2024 8:56 AM EST) Hemoglobin A1C 6.6(H) <6.5 % LAB CHEMISTRY METHOD 07/23/2024 9:50 PM [facility] Mean Bld Glu Estim. 143 mg/dL LAB CHEMISTRY METHOD 07/23/2024 9:50 PM [facility] Blood Venous blood specimen / Unknown Venipuncture / Unknown 07/23/2024 8:56 AM EST 07/23/2024 10:27 AM EST Jagjit JOHNSON LAB BLOOD ORDERABLES Final Re sult Performing Organization Address [facility]/ZIP Co de Phone Number [facility] [address] [place] [address], [place] [phone] * Lipid panel with reflex to direct LDL (07/23/2024 8:56 AM EST) Cholesterol 117 0 - 200 mg/dL LAB CHEMISTRY METHOD 07/23/2024 1:58 PM [facility] Triglycerides 136 0 - 150 mg/dL LAB CHEMISTRY METHOD 07/23/2024 1:58 PM [facility] HDL 53 >=40 mg/dL LAB CHEMISTRY METHOD 07/23/2024 1:58 PM [facility] LDL Calculated 37 0 - 100 mg/dL LAB CHEMISTRY METHOD 07/23/2024 1:58 PM [facility] VLDL Cholesterol Quique 27.2 mg/dL LAB CHEMISTRY METHOD 07/23/2024 1:58 PM [facility] Non HDL Chol. (LDL+VLDL) 64 <145 mg/dL LAB CHEMISTRY METHOD 07/23/2024 1:58 PM [facility] Chol/HDL Ratio 2.2 0.0 - 4.4 LAB CHEMISTRY METHOD 07/23/2024 1:58 PM [facility] Blood Venous blood specimen / Unknown Venipuncture / Unknown 07/23/2024 8:56 AM EST 07/23/2024 10:27 AM EST us Jagjit JOHNSON LAB BLOOD ORDERABLES Final Re sult [facility] [address] [place] [address], * (ABNORMAL) Comprehensive metabolic panel (07/23/2024 8:56 AM EST) Sodium 137 133 - 145 mmol/L LAB CHEMISTRY METHOD 07/23/2024 1:58 PM [facility] Potassium 4.1 3.5 - 5.5 mmol/L LAB CHEMISTRY METHOD 07/23/2024 1:58 PM [facility] Chloride 103 96 - 110 mmol/L LAB CHEMISTRY METHOD 07/23/2024 1:58 PM [facility] CO2 23 21 - 32 mmol/L LAB CHEMISTRY METHOD 07/23/2024 1:58 PM [facility] Anion Gap 11 3 - 11 LAB CHEMISTRY METHOD 07/23/2024 1:58 PM [facility] Glucose 156(H) 70 - 100 mg/dL LAB CHEMISTRY METHOD 07/23/2024 1:58 PM [facility] BUN 19 5 - 25 mg/dL LAB CHEMISTRY METHOD 07/23/2024 1:58 PM [facility] Creatinine 1.17 0.70 - 1.30 mg/dL LAB CHEMISTRY METHOD 07/23/2024 1:58 PM [facility] eGFR 64 >=60 mL/min/1. 73m2 LAB CHEMISTRY METHOD 07/23/2024 1:58 PM [facility] Comment:Calculation based on the??Chronic Kidney Disease Epidemiology Collaboration (CKD-EPI) equation refit??without adjustment for race. BUN/Creatinine Ratio 16.2 LAB CHEMISTRY METHOD 07/23/2024 1:58 PM [facility] Calcium 9.1 8.5 - 10.5 mg/dL LAB CHEMISTRY METHOD 07/23/2024 1:58 PM [facility] AST (SGOT) 23 10 - 42 unit/L LAB CHEMISTRY METHOD 07/23/2024 1:58 PM [facility] ALT (SGPT) 21 10 - 60 unit/L LAB CHEMISTRY METHOD 07/23/2024 1:58 PM [facility] Alkaline Phosphatase 96 42 - 121 unit/L LAB CHEMISTRY METHOD 07/23/2024 1:58 PM [facility] Total Protein 6.9 6.0 - 8.0 g/dL LAB CHEMISTRY METHOD 07/23/2024 1:58 PM [facility] Albumin 3.1(L) 3.2 - 5.0 g/dL LAB CHEMISTRY METHOD 07/23/2024 1:58 PM [facility] Total Bilirubin 0.5 0.0 - 1.4 mg/dL LAB CHEMISTRY METHOD 07/23/2024 1:58 PM [facility] Blood Venous blood specimen / Unknown Venipuncture / Unknown 07/23/2024 8:56 AM EST 07/23/2024 10:27 AM EST us Jagjit JOHNSON LAB BLOOD ORDERABLES Final Re sult [facility] [address] [place] [address], [place] [phone] * (ABNORMAL) Complete blood count (07/23/2024 8:56 AM EST) [facility] WBC 6.5 4.8 - 10.8 K/mcL LAB HEMETOLOGY METHOD 07/23/2024 12:33 PM [facility] RBC 4.60 4.50 - 5.50 M/mcL LAB HEMETOLOGY METHOD 07/23/2024 12:33 PM [facility] Hemoglobin 12.7(L) 13.5 - 17.5 g/dL LAB HEMETOLOGY METHOD 07/23/2024 12:33 PM [facility] Hematocrit 39.8(L) 42.0 - 54.0 % LAB HEMETOLOGY METHOD 07/23/2024 12:33 PM [facility] MCV 86.3 79.0 - 98.0 FL LAB HEMETOLOGY METHOD 07/23/2024 12:33 PM [facility] MCH 27.5 27.0 - 32.0 pcg LAB HEMETOLOGY METHOD 07/23/2024 12:33 PM [facility] MCHC 31.9(L) 32.0 - 37.0 g/dL LAB HEMETOLOGY METHOD 07/23/2024 12:33 PM [facility] RDW 13.8 11.0 - 15.0 % LAB HEMETOLOGY METHOD 07/23/2024 12:33 PM [facility] Platelets 280 130 - 400 K/mcL LAB HEMETOLOGY METHOD 07/23/2024 12:33 PM [facility] MPV 9.1 7.0 - 11.0 FL LAB HEMETOLOGY METHOD 07/23/2024 12:33 PM [facility] NRBC 0.0 <1.0 % LAB HEMETOLOGY METHOD 07/23/2024 12:33 PM EST [facility] NRBC Absolute 0.00 <0.10 K/mcL LAB HEMETOLOGY METHOD 07/23/2024 12:33 PM EST [facility] Blood Venous blood specimen / Unknown Venipuncture / Unknown 07/23/2024 8:56 AM EST 07/23/2024 10:27 AM EST us Jagjit JOHNSON LAB BLOOD ORDERABLES Final Re sult [facility] [address] [place] [address], documented in this encounter Visit Diagnoses Diagnosis Hyperlipidemia, unspecified Essential (primary) hypertension Unspecified essential hypertension Anemia, unspecified Type 2 diabetes mellitus without complications (CMS/HCC V24, CMS/FORMERLY [facility] V28) Vitamin D deficiency, unspecified Cellulitis, unspecified documented in this encounter Additional Health Concerns Infection Onset Date Last Indicated Resolved Time C. difficile 08/02/2024 08/02/2024 08/26/2024 7:06 PM EDT C. Diff Rule-Out Infection 08/03/2024 08/02/2024 0 08/03/2024 11:45 AM EDT documented as of this encounter Care Teams Cardiac/Vascular Sonographer Relationship Specialty Start Date End Date Jagjit Hancock PA [address] [place] [phone] PCP - General Physician Pipeline Integrity Engineer 07/23/24 documented as of this encounter
--- OUTSIDE RECORDS SUMMARY | 2024-10-04 10:14 | XMS_ITS ---
Author Organization [facility] Address [address] [place] [address] Care Team Providers Care Boatswain Mate Name Role Phone Marina MCDANIELS, Nubia Zelaya Primary Care Provider Un available Black, Sussy Unavailable [phone] Medications Medication SIG (Take, Route, Frequency, Duration) [...] Active Encounters Encounter Location Date Provider Diagnosis [facility] [address] [phone] 09/01/2024 Sussy Lowery Plan Of Treatment Next Appt Details Provider Name:Sussy Lowery , 12/11/2024 03:00:00 PM, [address] [place] [address], [phone], Progress Notes * Tobin AMOSDOB:1945 ( 79 yo M)Acc No.[id number]:09/01/2024 Progress Note Patient:?Tobin AMOS Provider:?Sussy Lowery DPM :1945???Age:79 Y???Sex:Male Romeo e:09/01/2024 Address:[address] [place] [address] [phone] Pcp:Jayjay Graham Subjective: * Chief Complaints: * [...]
--- OUTSIDE RECORDS SUMMARY | 2024-10-04 10:14 | XMS_ITS ---
Author Organization [facility] Address [address] [place] [address] Care Team Providers Care Pool Servicer Name Role Phone Marina MCDANIELS, Nubia Zelaya Primary Care Provider Un available SebastiánUcheSussy Unavailable [phone] REASON FOR VISIT RX Medications Medication SIG (Take, Route, Frequency, Duration) Notes Start Date End Date Status Ciclopirox Olamine 0.77 % 1 application to affected area Externally Twice a day for 30 days 09/10/2024 Active Encounters Encounter Location Date Provider Diagnosis [facility] [address] [place] [address] 09/10/2024 Sussy Sebastián Plan Of Treatment Medication Medication Name Sig Start Date Stop Date Notes Ciclopirox Olamine 0.77 % 1 application to affected area Externally Twice a day for 30 days 09/10/2024 Next Appt Details Provider Name:Sussy Patterson Sebastián , 12/11/2024 03:00:00 PM, [address] [place], [address], Progress Notes * Tobin BEYDOB:1945 ( 79 yo M)Acc No.[id number]:09/10/2024 Patient:Tobin LUIS :1945???Age:79 Y???Sex:Male Address: [place], [address] * Refills? Start Ciclopirox Olamine Cream, 0.77 %, Externally, 60, 1 application to affected area, Twice a day, 30 days, Refills=4 * true * Date:? Generated for Tu schrader/Yang/Shiraitting on:?10/04/2024 10:13 AM EDT
--- OUTSIDE RECORDS SUMMARY | 2024-10-04 10:14 | XMS_ITS | Encounter Summary ---
Author Organization [facility] Address [address] [place] [address] Care Team Providers Care Sugar Cane Planter Machine Operator Name Role Phone Jagjit Hancock Primary Care Provider Gigi price Encounter Details Date Type Department Care Team (Late st Contact Info) Description 08/03/2024 Lab Requisition [facility] - Main Lab [address] [place] [phone] Mary Cotter PA [address] [place] [phone] Diarrhea, unspecified Social History Tobacco Use Types [...] LAB MICROBIOLOGY METHOD 08/03/2024 12:41 PM EDT [facility] ([facility]) [facility] Comment: CRITICAL RESULT POSITIVE FOR TOXIN PRODUCING CLOSTRIDIOIDES DIFFICILE, NO ADDITIONAL TESTING IS NECESSARY. REPEAT SAMPLES SHOULD NOT BE SUBMITTED FOR TEST OF CURE. Stool Rectum structure / Unknown Non-blood Collection / Unknown 08/02/2024 7:40 PM EST 08/03/2024 11:45 AM EDT [facility] LAB MICROBIOLOGY - GENERAL ORD ERABLES Final Result Performing Organization Address City/[facility]/ZIP Co de Phone Number [facility] [address] [place] [address], [place] [phone] * Clostridium difficile toxin (08/02/2024 7:40 PM EST) C difficile Toxins A+B, EIA 08/03/2024 11:45 AM EDT [facility] Comment:Refer to C. difficil e PCR assay for results. Stool Rectum structure / Unknown Non-blood Collection / Unknown 08/02/2024 7:40 PM EST 08/03/2024 10:19 AM EDT Mary [facility] LAB MICROBIOLOGY - GENERAL ORD ERABLES Final Result Performing Organization Address [facility] Co de Phone Number [facility] [address] [place] [address], [place] [phone] documented in this encounter Visit Diagnoses Diagnosis Diarrhea, unspecified documented in this encounter Additional Health Concerns Infection Onset Date Last Indicated Resolved Time C. difficile 08/02/2024 08/02/2024 08/26/2024 7:06 PM EDT C. Diff Rule-Out Infection 08/03/2024 08/02/2024 0 08/03/2024 11:45 AM EDT documented as of this encounter Care Teams Sugar Cane Planter Machine Operator Relationship Specialty Start Date End Date Jagjit Hancock PA [address] [place] [phone] PCP - General Physician Mop Machine Operator 07/23/24 documented as of this encounter
[2024-10-04 12:14] VITALS: BP 124/80; PULSE 60; RESP 16; TEMP 36.4; O2SAT 99; BMI 28.0
--- NOTE | 2024-10-04 12:14 | AM.OFFWIN_ITS ---
Intake Vital Signs 10/04/24 12:14 Height 5 ft 11 in Weight 201 lb BMI 28.0 BP 124/80 Blood Pressure Location Lt brachial Position Sitting Respiration 16 Pulse 60 Pulse Source Pulse Oximeter Temp 97.5 F Temp Source Oral Pulse Oximetry (%) 99 Oxygen Delivery Method Room Air Intake Visit Reasons: EP-Rt leg infection Intake Note: Pt is here today c/o Rt leg infection Patient Tobacco Use Status: Never used Tobacco Allergies No Known Allergies Allergy (Verified 09/22/24 10:43) Medication List - Last Reconciled 10/04/24 by Anastacio Santana MD ascorbic acid (vitamin C) (Vitamin C) 1,000 mg PO DAILY blood sugar diagnostic (FreeStyle Lite Strips) check fasting blood sugar once a day blood-glucose meter (FreeStyle Lite Meter kit) check fasting blood sugar once a day ciclopirox 0.77% 1 appl topical BID clobetasol 0.05% 1 appl topical BID 2 weeks [coQ10 (ubiquinol) ] ferrous sulfate 325 mg PO DAILY glucosamine-chondroitin 250-200 mg (Osteo Bi-Flex) 2 tabs PO TID lancets As directed lancets (Accu-Chek Fastclix Lancet Drum) Check blood sugar 3 times a day as directed lidocaine 5% 1 patch topical DAILY losartan 100 mg PO DAILY [magnesium ] metoprolol tartrate 100 mg PO DAILY multivitamin 1 tab PO DAILY rosuvastatin 10 mg PO .QSATURDAY semaglutide (Ozempic) 1 mg subcut QWEEK spironolactone 25 mg PO DAILY sulfamethoxazole-trimethoprim 800-160 mg (Bactrim DS) 1 tab PO Q12H 10 days HPI EP-Rt leg infection HPI Details Patient has infected wound on right lower leg He also has venous stasis dermatitis on bilateral legs which he has been using I steroid cream for. He says he was seeing wound care previously but has no appointments for follow- up. Currently not on any antibiotics He is out of steroid cream that he was using on his legs. [facility] Medical History (Updated 10/04/24 @ 12:43 by Anastacio Santana MD) Decreased glomerular filtration rate (GFR) Elevated serum creatinine Ulcer of left heel Chronic ulcer of buttock Hx of adenomatous polyp of colon Tinea unguium Anemia Elevated vitamin B12 level Osteoarthritis of left hip Dyslipidemia Eczema Essential hypertension Type 2 diabetes mellitus without complication, without long-term current use of insulin Surgical History Hx of colonoscopy History of cataract surgery H/O shoulder replacement History of total hip replacement Family History Father Smoker Emphysema, unspecified Mother HTN (hypertension) Diabetes mellitus Cancer Brother Diabetes mellitus Social History Housing: House Are you a primary childcare center administrator to a significant other at home: No Do you presently have visiting nurse or other home services: No Alcohol intake: current Patient Tobacco Use Status: Never used Tobacco e-Cigarette/Vaping Use: Never Used service: No Current occupational status: retired Cognitive needs: No Hearing needs: No Vision needs: No Review of Systems Const Denies chills, Denies fatigue, Denies fever(s), Denies headache(s) and Denies weakness ENT Denies dizziness and Denies headache(s) Card Denies dyspnea Resp Denies cough, Denies dyspnea, Denies wheezing and Denies other ( shortness of breath) Musc Denies numbness and Denies tingling Skin/Breast Details: See HPI Neuro Denies dizziness, Denies headache(s), Denies numbness, Denies tingling, Denies paresthesias and Denies weakness Psych Denies anxiety and Denies depression Endo Denies fatigue Aller/Immun Denies wheezing Physical Exam Vital Signs: Last Vital Signs Temp 97.5 F 10/04/24 12:14 Pulse 60 10/04/24 12:14 Resp 16 10/04/24 12:14 BP 124/80 10/04/24 12:14 Pulse Ox 99 10/04/24 12:14 Oxygen Delivery Method Room Air 10/04/24 12:14 BMI result Body Mass Index 28.0 Const General: no acute distress and well developed Nutritional Appearance: well nourished Orientation/consciousness: patient oriented x3 HEENT Head: Yes normocephalic and Yes atraumatic Eyes General: appearance normal, both eyes and all related structures Pupils: Equal, round and reactive pupils present EOM: EOMs intact bilaterally Resp Effort & Inspection: normal respiratory effort Skin Other: Erythema bilateral lower shins Wound on right lower guevara with erythema and some drainage. Also small bulla Mild tenderness to palpation. Neuro General: patient oriented x3 and gait normal Cranial nerves: Yes Equal, round and reactive pupils present Psych Affect: normal affect Assessment & Plan Assessment & Plan (1) Venous stasis dermatitis: Code(s): I87.2 - Venous insufficiency (chronic) (peripheral) (2) Cellulitis: Code(s): L03.90 - Cellulitis, unspecified Plan Cellulitis and infected wound on right lower leg. Likely secondary to open breaks in skin from venous stasis dermatitis Start Bactrim DS Can also use some clobetasol Strongly encouraged patient to elevate legs when not standing or walking. Medications: New sulfamethoxazole-trimethoprim 800-160 mg (Bactrim DS) 1 tab PO Q12H 20 tabs 0RF 10 days clobetasol 0.05% 1 appl topical BID 60 grams 0RF 2 weeks Coding Level of Care Code Est Pt Level 3 (53859) Diagnoses Venous stasis dermatitis I87.2 Cellulitis L03.90
== END 2024-10-04 13:16 | disposition home or self-care (01) ==
LOC: HO.HMCWIC 10:10
PROVIDERS: PCP Internal Medicine; Visit Provider Family Medicine
DX: I87.2 Venous insufficiency (chronic) (peripheral) (principal); L03.90 Cellulitis, unspecified

== ENCOUNTER → 2024-10-04 10:10 | Outpatient (BNVA) | payer MEDICARE, SELFPAY | PROVIDERS: PCP Internal Medicine; Visit Provider Family Medicine | DX: I87.2 Venous insufficiency (chronic) (peripheral) (principal); L03.90 Cellulitis, unspecified | CPT/HCPCS: 99212 ==

== ENCOUNTER 2024-10-15 11:22 | Outpatient (REF) | payer MEDICARE, SELFPAY ==
--- NOTE | ~2024-10-15 | US_ITS ---
EXAMINATION:: Ultrasound renal bilaterally. CLINICAL INFORMATION: Acute kidney failure. COMPARISON: April 18, 2011. TECHNIQUE: Real-time ultrasound of the kidneys using grayscale technique. FINDINGS: Right kidney: 11 x 5 x 6 cm. Volume: 151 cc. Normal echotexture. Renal cortical thinning. No hydronephrosis. There is a 2.4 x 2.9 cm well-defined anechoic lesion at the corticomedullary junction of the midportion without septations or nodular components were flow on color Doppler interrogation. There is a 1.9 x 1.8 cm exophytic anechoic lesion in the anterior lower pole without patient's or nodular components were flow on color Doppler interrogation. Left kidney: 11 x 5 x 5 cm. Volume: 134 cc. Normal echotexture. Normal renal cortical thickness. No hydronephrosis. There is a cluster of 1.2 cm hyperechoic structures in the mid portions. There is a 1.1 cm well-defined anechoic lesion at the corticomedullary junction is of the lower pole without septations or nodular components. US/US renal BI IMPRESSION: No hydronephrosis. Nonobstructing calculi, left kidney. Bilateral simple renal cysts. Electronically signed by: Ajit Lance MD 10/15/2024 11:55 AM EDT
--- OUTSIDE RECORDS SUMMARY | 2024-10-15 12:40 | XMS_ITS | Encounter Summary ---
Author Organization [facility] Address [address] [place] [address] Care Team Providers Care Manager Proposal Name Role Phone Jagjit Hancock Primary Care Provider Gigi price Encounter Details Date Type Department Care Team (Latest Contact Info) Description 08/08/2024 Lab Requisition [facility] - Main Lab [address] [place] [phone] Rebecca Gomez MD [address] [place] [phone] Essential (primary) hypertension; Anemia, unspecified; Cellulitis, unspecified; [...] Comprehensive metabolic panel (08/11/2024 6:40 AM EDT) [facility] Signature Sodium 134 133 - 145 mmol/L LAB CHEMISTRY METHOD 08/11/2024 11:47 AM [facility] Potassium 3.7 3.5 - 5.5 mmol/L LAB CHEMISTRY METHOD 08/11/2024 11:47 AM [facility] Chloride 96 96 - 110 mmol/L LAB CHEMISTRY METHOD 08/11/2024 11:47 AM [facility] CO2 26 21 - 32 mmol/L LAB CHEMISTRY METHOD 08/11/2024 11:47 AM [facility] Anion Gap 12(H) 3 - 11 LAB CHEMISTRY METHOD 08/11/2024 11:47 AM [facility] Glucose 94 70 - 100 mg/dL LAB CHEMISTRY METHOD 08/11/2024 11:47 AM [facility] BUN 28(H) 5 - 25 mg/dL LAB CHEMISTRY METHOD 08/11/2024 11:47 AM [facility] Creatinine 1.09 0.70 - 1.30 mg/dL LAB CHEMISTRY METHOD 08/11/2024 11:47 AM [facility] eGFR 70 >=60 mL/min/1. 73m2 LAB CHEMISTRY METHOD 08/11/2024 11:47 AM [facility] Comment:Calculation based on the??Chronic Kidney Disease Epidemiology Collaboration (CKD-EPI) equation refit??without adjustment for race. BUN/Creatinine Ratio 25.7 LAB CHEMISTRY METHOD 08/11/2024 11:47 AM [facility] Calcium 9.3 8.5 - 10.5 mg/dL LAB CHEMISTRY METHOD 08/11/2024 11:47 AM [facility] AST (SGOT) 24 10 - 42 unit/L LAB CHEMISTRY METHOD 08/11/2024 11:47 AM [facility] ALT (SGPT) 25 10 - 60 unit/L LAB CHEMISTRY METHOD 08/11/2024 11:47 AM EDT [facility] Alkaline Phosphatase 86 42 - 121 unit/L LAB CHEMISTRY METHOD 08/11/2024 11:47 AM EDT [facility] Total Protein 6.8 6.0 - 8.0 g/dL LAB CHEMISTRY METHOD 08/11/2024 11:47 AM EDT [facility] Albumin 3.3 3.2 - 5.0 g/dL LAB CHEMISTRY METHOD 08/11/2024 11:47 AM EDT [facility] Total Bilirubin 0.5 0.0 - 1.4 mg/dL LAB CHEMISTRY METHOD 08/11/2024 11:47 AM EDT [facility] Blood Venous blood specimen / Unknown Venipuncture / Unknown 08/11/2024 6:40 AM EDT 08/11/2024 11:02 AM EDT Rebecca Gomez MD LAB BLOOD ORDERABLES Final Resul t [facility] [address] [place] [address], * (ABNORMAL) Complete blood count (08/11/2024 6:40 AM EDT) WBC 4.7(L) 4.8 - 10.8 K/[facility] LAB HEMETOLOGY METHOD 08/11/2024 11:54 AM EDT [facility] RBC 4.50 4.50 - 5.50 M/[facility] LAB HEMETOLOGY METHOD 08/11/2024 11:54 AM EDT [facility] Hemoglobin 12.6(L) 13.5 - 17.5 g/dL LAB HEMETOLOGY METHOD 08/11/2024 11:54 AM [facility] Hematocrit 37.8(L) 42.0 - 54.0 % LAB HEMETOLOGY METHOD 08/11/2024 11:54 AM EDT [facility] MCV 84.6 79.0 - 98.0 FL LAB HEMETOLOGY METHOD 08/11/2024 11:54 AM EDT [facility] MCH 28.2 27.0 - 32.0 pcg LAB HEMETOLOGY METHOD 08/11/2024 11:54 AM EDT [facility] MCHC 33.3 32.0 - 37.0 g/dL LAB HEMETOLOGY METHOD 08/11/2024 11:54 AM EDT [facility] RDW 13.9 11.0 - 15.0 % LAB HEMETOLOGY METHOD 08/11/2024 11:54 AM EDT [facility] Platelets 231 130 - 400 K/mcL LAB HEMETOLOGY METHOD 08/11/2024 11:54 AM EDT [facility] MPV 9.6 7.0 - 11.0 FL LAB HEMETOLOGY METHOD 08/11/2024 11:54 AM EDT [facility] NRBC 0.0 <1.0 % LAB HEMETOLOGY METHOD 08/11/2024 11:54 AM EDT [facility] NRBC Absolute 0.00 <0.10 K/mcL LAB HEMETOLOGY METHOD 08/11/2024 11:54 AM EDT [facility] Blood Venous blood specimen / Unknown Venipuncture / Unknown 08/11/2024 6:40 AM EDT 08/11/2024 11:02 AM EDT us Rebecca Gomez MD LAB BLOOD ORDERABLES Final Resul t [facility] [address] [place] [address], documented in this encounter Visit Diagnoses Diagnosis Essential (primary) hypertension Unspecified essential hypertension Anemia, unspecified Cellulitis, unspecified Type 2 diabetes mellitus without complications (CMS/HCC V24, CMS/HCC V28) documented in this encounter Additional Health Concerns Infection Onset Date Last Indicated Resolved Time C. difficile 08/02/2024 08/02/2024 08/26/2024 7:06 PM EDT documented as of this encounter Care Teams Manager Proposal Relationship Specialty Start Date End Date Jagjit Hancock PA [address] [place] [phone] PCP - General Physician Compensator Worker 07/23/24 documented as of this encounter
--- OUTSIDE RECORDS SUMMARY | 2024-10-15 12:40 | XMS_ITS ---
Author Organization [facility] Address [address] [place] [address] Care Team Providers Care Splunk Developer Name Role Phone Marina MCDANIELS, Nubia Primary Care Provider Daryn Brito Jr Encounters Encounter Location Date Provider Diagnosis [facility] [address] [place] [address] 05/30/2024 Daryn Pimentel Jr Plan Of Treatment No Information Progress Notes * REUBEN AMOSDOB:1945 ( 78 yo M)Acc No.[id number]:05/30/2024 Patient:?REUBEN AMOS :1945???Age:78 Y???Sex:Male Address:[place] [address] * true * Date:? Generated for Duanei raciel/Yang/eTransmitting on:?10/15/2024 12:39 PM EDT
--- OUTSIDE RECORDS SUMMARY | 2024-10-15 12:40 | XMS_ITS ---
Author Organization [facility] Address [address] [place] [address] Care Team Providers Care Cnc Lathe Programmer Name Role Phone Marina MCDANIELS, Nubia Zelaya Primary Care Provider Un available Sebastián Sussy Unavailable [phone] Encounters Encounter Location Date Provider Diagnosis [address] [address] 09/04/2024 Sussy Lowery Plan Of Treatment Next Appt Details Provider Name:Sussy Patterson Sebastián , 12/11/2024 03:00:00 PM, [address] [place] [address], [phone], Progress Notes * Tobin BEYDOB:1945 ( 79 yo M)Acc No.[id number]:09/04/2024 Progress Note Patient:?Tobin BEY Provider:?Sussy Lowery DPM :1945???Age:79 Y???Sex:Male Romeo e:09/04/2024 Address:[address] [phone] Pcp:Jayjay Graham Subjective: * Chief Complaints: * ??? * Medical History:? Objective: * Vitals:? Assessment: Plan: * Treatment: * Images: * The named appointment provid er may or may not be the originator of this progress note, and it is not deemed complete until electronically signed by the appointment provider. Sign off status: Pending * Provider:Hanna Lowery DPM Date:?2024 Generated for Tu schrader/Yang/Jean on:?10/15/2024 12:40 PM EDT
--- OUTSIDE RECORDS SUMMARY | 2024-10-15 12:40 | XMS_ITS | Encounter Summary ---
Author Organization [facility] Address [address] [place] [address] Care Team Providers Care Rehabilitation Therapist Name Role Phone Jagjit Hancock Primary Care Provider Gigi price Encounter Details Date Type Department Care Team (Latest Contact Info) Description 08/16/2024 Lab Requisition [facility] - Main Lab [address] [place] [phone] Rebecca Gomez MD [address] [place] [phone] Essential (primary) hypertension; Anemia, unspecified; Cellulitis, unspecified; [...] Comprehensive metabolic panel (08/18/2024 7:18 AM EDT) [facility] Signature Sodium 132(L) 133 - 145 mmol/L LAB CHEMISTRY METHOD 08/18/2024 12:46 PM [facility] Potassium 4.4 3.5 - 5.5 mmol/L LAB CHEMISTRY METHOD 08/18/2024 12:46 PM [facility] Chloride 95(L) 96 - 110 mmol/L LAB CHEMISTRY METHOD 08/18/2024 12:46 PM [facility] CO2 27 21 - 32 mmol/L LAB CHEMISTRY METHOD 08/18/2024 12:46 PM [facility] Anion Gap 10 3 - 11 LAB CHEMISTRY METHOD 08/18/2024 12:46 PM [facility] Glucose 88 70 - 100 mg/dL LAB CHEMISTRY METHOD 08/18/2024 12:46 PM [facility] BUN 34(H) 5 - 25 mg/dL LAB CHEMISTRY METHOD 08/18/2024 12:46 PM [facility] Creatinine 1.19 0.70 - 1.30 mg/dL LAB CHEMISTRY METHOD 08/18/2024 12:46 PM [facility] eGFR 63 >=60 mL/min/1. 73m2 LAB CHEMISTRY METHOD 08/18/2024 12:46 PM [facility] Comment:Calculation based on the??Chronic Kidney Disease Epidemiology Collaboration (CKD-EPI) equation refit??without adjustment for race. BUN/Creatinine Ratio 28.6 LAB CHEMISTRY METHOD 08/18/2024 12:46 PM [facility] Calcium 9.7 8.5 - 10.5 mg/dL LAB CHEMISTRY METHOD 08/18/2024 12:46 PM [facility] AST (SGOT) 30 10 - 42 unit/L LAB CHEMISTRY METHOD 08/18/2024 12:46 PM [facility] ALT (SGPT) 34 10 - 60 unit/L LAB CHEMISTRY METHOD 08/18/2024 12:46 PM EDT [facility] Alkaline Phosphatase 93 42 - 121 unit/L LAB CHEMISTRY METHOD 08/18/2024 12:46 PM EDT [facility] Total Protein 7.2 6.0 - 8.0 g/dL LAB CHEMISTRY METHOD 08/18/2024 12:46 PM [facility] Albumin 3.4 3.2 - 5.0 g/dL LAB CHEMISTRY METHOD 08/18/2024 12:46 PM EDT [facility] Total Bilirubin 0.6 0.0 - 1.4 mg/dL LAB CHEMISTRY METHOD 08/18/2024 12:46 PM T [facility] Blood Venous blood specimen / Unknown Venipuncture / Unknown 08/18/2024 7:18 AM EDT 08/18/2024 11:03 AM EDT Rebecca Gomez MD LAB BLOOD ORDERABLES Final Resul t [facility] [address] [place] [address], * (ABNORMAL) Complete blood count (08/18/2024 7:18 AM EDT) WBC 7.0 4.8 - 10.8 K/mcL LAB HEMETOLOGY METHOD 08/18/2024 11:59 AM EDT [facility] RBC 4.90 4.50 - 5.50 M/mcL LAB HEMETOLOGY METHOD 08/18/2024 11:59 AM EDT [facility] Hemoglobin 14.1 13.5 - 17.5 g/dL LAB HEMETOLOGY METHOD 08/18/2024 11:59 AM T [facility] Hematocrit 41.1(L) 42.0 - 54.0 % LAB HEMETOLOGY METHOD 08/18/2024 11:59 AM EDT [facility] MCV 83.4 79.0 - 98.0 FL LAB HEMETOLOGY METHOD 08/18/2024 11:59 AM EDT [facility] MCH 28.6 27.0 - 32.0 pcg LAB HEMETOLOGY METHOD 08/18/2024 11:59 AM EDT [facility] MCHC 34.3 32.0 - 37.0 g/dL LAB HEMETOLOGY METHOD 08/18/2024 11:59 AM EDT [facility] RDW 14.2 11.0 - 15.0 % LAB HEMETOLOGY METHOD 08/18/2024 11:59 AM EDT [facility] Platelets 266 130 - 400 K/mcL LAB HEMETOLOGY METHOD 08/18/2024 11:59 AM EDT [facility] MPV 8.9 7.0 - 11.0 FL LAB HEMETOLOGY METHOD 08/18/2024 11:59 AM EDT [facility] NRBC 0.0 <1.0 % LAB HEMETOLOGY METHOD 08/18/2024 11:59 AM EDT [facility] NRBC Absolute 0.00 <0.10 K/mcL LAB HEMETOLOGY METHOD 08/18/2024 11:59 AM EDT [facility] Blood Venous blood specimen / Unknown Venipuncture / Unknown 08/18/2024 7:18 AM EDT 08/18/2024 11:03 AM EDT us Rebecca Gomez MD LAB BLOOD ORDERABLES Final Resul t [facility] [address] [place] [address], documented in this encounter Visit Diagnoses Diagnosis Essential (primary) hypertension Unspecified essential hypertension Anemia, unspecified Cellulitis, unspecified Type 2 diabetes mellitus without complications (CMS/HCC V24, CMS/HCC V28) documented in this encounter Additional Health Concerns Infection Onset Date Last Indicated Resolved Time C. difficile 08/02/2024 08/02/2024 08/26/2024 7:06 PM EDT documented as of this encounter Care Teams Rehabilitation Therapist Relationship Specialty Start Date End Date Jagjit Hancock PA [address] [place] [phone] PCP - General Physician Archivist 07/23/24 documented as of this encounter
--- OUTSIDE RECORDS SUMMARY | 2024-10-15 12:40 | XMS_ITS | Patient Health Record ---
Author Organization [facility] Address [address] [facility] [place] [address] Care Team Providers Care Surgical Services Manager Name Role Phone Marina MCDANIELS, Nubia Zelaya Primary Care Provider Un available Black, Sussy Unavailable [phone] Allergies No Known Allergies Results Component Value [...] Problem Acquired hammer toe of right foot (129058677715768 5) Other hammer toe(s) (acquired), right foot (M20.41) Active confirmed Problem Acquired hammer toe of left foot (513407271895316 3) Other hammer toe(s) (acquired), left foot (M20.42) Active confirmed Problem Ulcer of toe (447171438) Non-pressure chronic ulcer of other part of left foot limited to breakdown of skin (L97.521) Active confirmed Problem Nonstageable pressure ulcer of left foot (692400326643657 05) 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) Active confirmed Problem Ulcer of heel (246386873) 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) Active confirmed Problem Polyneuropathy due to type 2 diabetes mellitus (644378765) Type 2 diabetes mellitus with diabetic polyneuropathy (E11.42) Active confirmed Problem Ulcer of heel (458519780) Neuropathic ulcer of right heel, limited to breakdown of skin (L97.411) Active confirmed Response to treatment Vital Signs Blood pressure diastolic 78 mm Hg 09/01/2024 Height 6 ft in 09/01/2024 Blood pressure systolic 121 mm Hg 09/01/2024 Weight 212 lbs 09/01/2024 BMI 28.75 kg/m2 09/01/2024 Procedures Procedure Date Ordered Date Performed Result Body Sit e 96168-XMFAWCE NAIL, 6 OR MORE 10/25/2023 N/A 99869-NZSZ SKIN LESIONS, OVER 4 10/25/2023 N/A 90378-EQCJLWB NAIL, 6 OR MORE 02/14/2024 N/A 29764- Debride <25 sq cm 02/14/2024 N/A 52372-OIWQ SKIN LESIONS, OVER 4 02/14/2024 N/A 11250-JGDUIUW NAIL, 6 OR MORE 06/02/2024 N/A 20429-MOAT SKIN LESIONS, OVER 4 06/02/2024 N/A 05847-LBHFFMW NAIL, 6 OR MORE 09/01/2024 N/A 65034-ZDSY SKIN LESIONS, OVER 4 09/01/2024 N/A Encounters Encounter Location Date Provider Diagnosis [address] [address] 10/25/2023 Sussy Black Type 2 diabetes mellitus with diabetic polyneuropathy E11.42 ; Tinea unguium B35.1 ; Other hammer toe(s) (acquired), left foot M20.42 and Other hammer toe(s) (acquired), right foot M20.[address] [address] 11/19/2023 Sussy Black 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 and Type 2 diabetes mellitus with diabetic polyneuropathy E11.[address] [address] 02/14/2024 Sussy Black 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 ; Other hammer toe(s) (acquired), right foot M20.41 ; Type 2 diabetes mellitus with diabetic polyneuropathy E11.42 ; Tinea unguium B35.1 and Other hammer toe(s) (acquired), left foot M20.[address] [address] 06/02/2024 Sussy Black Type 2 diabetes mellitus with diabetic polyneuropathy E11.42 and Tinea unguium B35.[address] [facility] [address] 09/01/2024 Sussy Lowery Type 2 diabetes mellitus with diabetic polyneuropathy E11.42 ; Tinea unguium B35.1 and Tinea pedis of both feet B35.[address] [address] 11/19/2023 Sussyjesus Lowery [facility] [address] 06/03/[address] [facility] [address] 08/26/[address] [facility] [address] 09/10/2024 Sussy Lowery Assessments Encounter Date Diagnosis (ICD Code) Assessment Notes Treatment Notes Treatment Clinical Notes Section Notes 10/25/2023 Type 2 diabetes mellitus with diabetic polyneuropathy (ICD-10 - E11.42) 11/19/2023 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 breakdown of skin (ICD-10 - L97.421) [facility] center 11/19/2023 Type 2 diabetes mellitus with [...] Date *Wound Culture 12/18/2019 *Wound Culture 11/24/2021 19029-EFQDEAV NAIL, 6 OR MORE 08/25/2021 81783-FIYFNJS NAIL, 6 OR MORE 12/18/2019 32615-KPUOIMY NAIL, 6 OR MORE 11/24/2021 97943-EQAWILF NAIL, 6 OR MORE 02/23/2022 59891-EVTWYVO NAIL, 6 OR MORE 06/08/2022 14126-GGAYXBJ NAIL, 6 OR MORE 09/11/2022 41318-PKSNZCQ NAIL, 6 OR MORE 12/11/2022 57668-UUXVEJA NAIL, 6 OR MORE 09/18/2019 38754-OOIYOMG NAIL, 6 OR MORE 02/23/2020 65043-SKJPJUO NAIL, 6 OR MORE 05/13/2020 15288-WXDKTOG NAIL, 6 OR MORE 08/12/2020 85403-RQNVZEW NAIL, 6 OR MORE 11/18/2020 61284-ATPHVJL NAIL, 6 OR MORE 02/17/2021 74439-KNFCIQM NAIL, 6 OR MORE 03/15/2023 92277-ZOMBBTL NAIL, 6 OR MORE 06/21/2023 87198-JCBHSRN NAIL, 6 OR MORE 10/25/2023 00591-WETYBRL NAIL, 6 OR MORE 02/14/2024 41891-HXEVZDM NAIL, 6 OR MORE 06/02/2024 08930-VQTQYAX NAIL, 6 OR MORE 09/01/2024 61474-QPBWOFM NAIL, 6 OR MORE 03/06/2019 45246-ZCCDWLL NAIL, 6 OR MORE 06/05/2019 51875-IYSEVHP NAIL, 6 OR MORE 02/21/2018 96317-ZQYBHXV NAIL, 6 OR MORE 05/30/2018 67470-XQDYKLH NAIL, 6 OR MORE 08/29/2018 50935-MBFKMWB NAIL, 6 OR MORE 12/05/2018 57644-VSZSATR NAIL, 6 OR MORE 12/22/2015 41997-BSCZWON NAIL, 6 OR MORE 03/23/2016 30769-LPJRPJZ NAIL, 6 OR MORE 06/22/2016 67829-GUKWOGJ NAIL, 6 OR MORE 10/05/2016 73892-KMBMHDB NAIL, 6 OR MORE 01/04/2017 74332-GFPKQEB NAIL, 6 OR MORE 05/10/2017 90935-KZEJGXM NAIL, 6 OR MORE 08/09/2017 48033-EQQKJVA NAIL, 6 OR MORE 11/23/2017 52479-VFRITAT NAIL, 6 OR MORE 04/17/2011 13374-ZTJKDJJ NAIL, 6 OR MORE 07/20/2011 24891-CESYXEW NAIL, 6 OR MORE 08/17/2011 63045-EUHBUSN NAIL, 6 OR MORE 09/19/2011 03028-LGCXYXR NAIL, 6 OR MORE 12/25/2011 48488-WAHYSCI NAIL, 6 OR MORE 03/13/2012 02203-YGDPZQZ NAIL, 6 OR MORE 06/19/2012 55419-LHJDIZA NAIL, 6 OR MORE 09/16/2012 59259-FKPHKPR NAIL, 6 OR MORE 12/04/2012 18075-BCTBRKO NAIL, 6 OR MORE 03/12/2013 67139-GRNCXAJ NAIL, 6 OR MORE 06/18/2013 76063-SBWQHON NAIL, 6 OR MORE 09/18/2013 50708-YSRPFTC NAIL, 6 OR MORE 12/18/2013 39115-GNMCSTX NAIL, 6 OR MORE 03/19/2014 59364-IUDYDBE NAIL, 6 OR MORE 09/17/2014 39151-VSVUUFV NAIL, 6 OR MORE 12/17/2014 25071-JCRIFZE NAIL, 6 OR MORE 06/18/2014 60896-WEIKROW NAIL, 6 OR MORE 03/24/2015 17617-WISQDSQ NAIL, 6 OR MORE 06/17/2015 46606-LXNYVTT NAIL, 6 OR MORE 09/16/2015 25614-Nesooynf Plate 06/18/2014 83861-Kosfoumh Plate 12/17/2014 79632-Zwhtmesx Plate 12/18/2013 48923-Amxyxnrh Plate 09/18/2013 93068-Fegoqsjm Plate 03/12/2013 99082-Bscejyrp Plate 01/04/2017 52109-Kgrvxifi Plate 06/21/2023 78505- Debride <25 sq cm 02/14/2024 34591- Debride <25 sq cm 08/25/2021 15464- Debride <25 sq cm 08/12/2020 27651- Debride <25 sq cm 04/05/2020 78568- Debride <25 sq cm 05/13/2020 05534- Debride <25 sq cm 02/23/2020 05546- Debride <25 sq cm 06/08/2022 00517- Debride <25 sq cm 11/24/2021 87091- Debride <25 sq cm 12/08/2021 48590- Debride <25 sq cm 01/05/2022 25379- Debride <25 sq cm 02/23/2022 44332- Debride <25 sq cm 12/04/2012 67467- Debride <25 sq cm 12/25/2011 95317- Debride <25 sq cm 09/19/2011 58036- Debride <25 sq cm 08/17/2011 58305- Debride <25 sq cm 07/20/2011 77779- Debride <25 sq cm 12/18/2013 02143- Debride <25 sq cm 03/19/2014 27377-ZYUZAZE SKIN/TISSUE 12/18/2019 04685-KWECFQG SKIN/TISSUE 01/05/2020 68419-EUVOTZW SKIN/TISSUE 01/19/2020 83425-UGZNFFU SKIN/TISSUE 02/05/2020 37610-CBHY SKIN LESIONS, OVER 4 09/18/19 20 02313-FBMY SKIN LESIONS, OVER 4 06/05/19 20 99292-YNBV SKIN LESIONS, OVER 4 03/06/20 19 79448-PDTF SKIN LESIONS, OVER 4 12/06/19 19 30737-KENE SKIN LESIONS, OVER 4 08/30/19 19 83261-UAYH SKIN LESIONS, OVER 4 05/30/19 14639-XFFQ SKIN LESIONS, OVER 4 01/05/20 08654-CYAH SKIN LESIONS, OVER 4 02/22/20 18 44677-CXRY SKIN LESIONS, OVER 4 11/24/19 18 76177-WCLP SKIN LESIONS, OVER 4 05/10/20 59075-CKYD SKIN LESIONS, OVER 4 08/10/19 18 28663-UHKT SKIN LESIONS, OVER 4 02/24/20 40547-YNFP SKIN LESIONS, OVER 4 11/25/19 58127-HAND SKIN LESIONS, OVER 4 06/08/19 19002-SZMS SKIN LESIONS, OVER 4 09/12/19 60119-CNGL SKIN LESIONS, OVER 4 03/15/20 51480-XVEL SKIN LESIONS, OVER 4 12/12/19 58797-MVFC SKIN LESIONS, OVER 4 02/23/20 05903-WDZY SKIN LESIONS, OVER 4 12/18/19 54713-JZDE SKIN LESIONS, OVER 4 05/13/20 57087-HCYB SKIN LESIONS, OVER 4 08/13/19 29381-SEQE SKIN LESIONS, OVER 4 11/19/19 31350-BQKO SKIN LESIONS, OVER 4 08/26/19 40658-TGLE SKIN LESIONS, OVER 4 02/18/20 81871-IRLN SKIN LESIONS, OVER 4 02/14/20 24 52606-YESA SKIN LESIONS, OVER 4 06/02/19 00564-RRVX SKIN LESIONS, OVER 4 06/21/19 22882-VQAM SKIN LESIONS, OVER 4 10/25/19 24 24687-YEMU SKIN LESIONS, OVER 4 09/02/19 48612-YHMV SKIN LESIONS, 2 TO 4 06/22/19 17 81611-JUJW SKIN LESIONS, 2 TO 4 10/06/19 17 72183-VOQH SKIN LESIONS, 2 TO 4 03/23/20 16 57457-TQZP SKIN LESIONS, 2 TO 4 12/22/19 16 00124-LGDI SKIN LESIONS, 2 TO 4 12/18/19 15 52671-DAMS SKIN LESIONS, 2 TO 4 03/24/20 15 36904-TXOI SKIN LESIONS, 2 TO 4 09/16/19 16 25550-IGKC SKIN LESIONS, 2 TO 4 06/17/19 16 Next Appt Details Provider Name:Sussy Lowery , 12/11/2024 03:00:00 PM, [address] [facility], [place], [address], Insurance Providers Payer Name Payer Address Payer Phone Subscriber Number Group Number Insured Name Patient Relationship to Insured Coverage Start Date Coverage End Date Medicare National [employer] [address] [place] [address] [id number] Tobin Bey Self - patient is the insured A[employer] Secondary to Medicare [address] [place] [address] [id number] Tobin Bey Self - patient is the insured Medical (General) History Medical History History ICD Code reflux mumps measles chicken pox hypertension diabetes mellitus Macular degeneration Surgical History Surgery Date(Month/Year) cataract removal left total hip replacement 02/23/2015 R shoulder replacement 03/27/2017 Hospitalization History Reason Date(Month/Year) leg infection 08/19
--- OUTSIDE RECORDS SUMMARY | 2024-10-15 12:40 | XMS_ITS | Continuity of Care Document ---
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 Role Phone [facility] Unavailable Unavailable Problems Combined list of problems [...] Art SANTAMARIA Comment: Right shoulder replacement 2016 [facility] At risk of pressure ulcer (SNOMED CT 743962750) Active Condition [facility] DM - Diabetes mellitus (SNOMED CT 38700172) Active Condition [facility] HTN - Hypertension (SNOMED CT 65558021) Active Condition [facility] Hyperlipidemia (SCT 83124149) Active Condition [facility] Iron deficiency anemia Active Condition [facility] [place] [facility] Osteoarthritis Active Condition [facility] [place] Pain in right hip joint Active Condition [facility] Polyp of colon Active Condition September 262013 Entered By: LIA ABRAHAM Comment: 2012 2 polypsSep 2017 Entered By: Art SANTAMARIA Comment: 06/13 1 polypApr 2020 Entered By: Art SANTAMARIA Comment: 10/2019 EGD and colonic polyp-see note 08/27/20-due 11/17 colon [facility] Postsurgical Status of Cataract Extraction Active Condition Sep 10, 2012 Entered By: LIA ABRAHAM Comment: alondra [facility] Pressure injury of buttock Active Condition Aug 15, 2023 Entered By: KEO ANAYA Comment: Managed by MYNOR Acevedo [facility] Psoriasis Active Condition [facility] Diagnosis: ICD-10-CM L03.116 Cellulitis of left lower limb Active Diagnosis [facility] Diagnosis: ICD-10-CM E11.9 Type 2 diabetes mellitus without complications Active Diagnosis [facility] Diagnosis: ICD-10-CM E11.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 Medication Details Route Status Patient Instructions Prescription Expires Prescription Number Last Dispense Date Ordering Provider Order Date Order Qty Source ASPIRIN 81MG TAB,EC TAKE ONE TABLET BY MOUTH DAILY ORAL ACTIVE JOSH ABRAHAM 2013 [facility] CICLOPIROX OLAMINE 0.77% CREAM,TOP APPLY A TOPICALL Y TWICE DAILY TOPICA L ACTIVE JOSH ABRAHAM 2012 [place] CYANOCOBALA MIN 1000MCG TAB TAKE ONE TABLET BY MOUTH DAILY ORAL ACTIVE JOSH ABRAHAM 2013 [facility] DICLOFENAC NA 1% GEL,TOP APPLY 2 GRAMS TOPICALL Y FOUR TIMES DAILY NEEDED FOR OSTEOART HRITIS - USE DOSING CARD PROVIDED IN BOX TOPICA L ACTIVE 01/30/2025 [id number] 5 Frantz TRUJILLO A 2023 100 [place] DICLOFENAC NA 1% GEL,TOP APPLY 2 GRAMS TOPICALL Y FOUR TIMES DAILY NEEDED FOR OSTEOART HRITIS - USE DOSING CARD PROVIDED IN BOX TOPICA L DISCONT [facility] 02/15/2024 [id number] 4 KATIE ACEVEDO 2022 100 [place] FLUOCINONID E 0.05% CREAM,TOP APPLY A TOPICALL Y TWICE DAILY TOPICA L ACTIVE JOSH ABRAHAM 2012 [place] HYDROCHLORO THIAZIDE 25MG TAB TAKE ONE TABLET BY MOUTH DAILY TO PREVENT FLUID/CO NTROL BLOOD PRESSURE ORAL ACTIVE 01/30/2025 [id number] 5 Frantz TRUJILLO A 2023 90 [place] HYDROCHLORO THIAZIDE 25MG TAB TAKE ONE TABLET BY MOUTH DAILY TO PREVENT FLUID/CO NTROL BLOOD PRESSURE ORAL DISCONT INUED 02/15/2024 [id number] 4 KATIE ACEVEDO CHESTER S 2022 90 [place] LIDOCAINE 5% PATCH APPLY 1 PATCH TOPICALL Y ONCE DAILY NEEDED (LEAVE PATCH ON FOR 12 HOURS, THEN REMOVE PATCH) TOPICA L ACTIVE 01/30/2025 [id number] 5 Frantz TRUJILLO A 2023 30 [place] LIDOCAINE 5% PATCH APPLY 1 PATCH TOPICALL Y ONCE DAILY NEEDED (LEAVE PATCH ON FOR 12 HOURS, THEN REMOVE PATCH) TOPICA L DISCONT INUED 02/15/2024 [id number] 4 ACEVEDO,KATIE CHESTER S 2022 30 [place] LORATADINE 10MG TAB TAKE ONE TABLET BY MOUTH DAILY ORAL ACTIVE JOSH ABRAHAM 2013 [place] LOSARTAN POTASSIUM 100MG TAB TAKE ONE TABLET BY MOUTH ONCE DAILY FOR BLOOD PRESSURE /HEART ORAL ACTIVE 01/30/2025 [id number] 4 Frantz TRUJILLO A 2023 90 [place] LOSARTAN POTASSIUM 100MG TAB TAKE ONE TABLET BY MOUTH ONCE DAILY FOR BLOOD PRESSURE /HEART ORAL DISCONT INUED 02/15/2024 [id number] 4 KATIE ACEVEDO S 2022 90 [place] MAGNESIUM OXIDE TAB TAKE BY MOUTH ORAL ACTIVE ROWENA LAURENT 2018 [place] METFORMIN HCL 1000MG TAB TAKE ONE TABLET BY MOUTH TWICE DAILY FOR DIABETES ORAL ACTIVE 01/30/2025 [id number] 5 Frantz TRUJILLO A 2023 180 [place] METFORMIN HCL 1000MG TAB TAKE ONE TABLET BY MOUTH TWICE DAILY FOR DIABETES ORAL DISCONT INUED 02/15/2024 [id number] 4 KATIE ACEVEDO S 2022 180 [place] METOPROLOL TARTRATE 50MG TAB TAKE ONE TABLET BY MOUTH TWICE DAILY FOR BLOOD PRESSURE /HEART ORAL ACTIVE 06/25/2025 [id number] 5 Frantz TRUJILLO A 2024 180 [place] METOPROLOL TARTRATE 50MG TAB TAKE ONE TABLET BY MOUTH TWICE DAILY FOR BLOOD PRESSURE /HEART ORAL DISCONT INUED 09/26/2024 [id number] 4 ALVARADO ANAYA 2023 180 [place] METOPROLOL TARTRATE 50MG TAB TAKE ONE TABLET BY MOUTH TWICE DAILY FOR BLOOD PRESSURE /HEART ORAL DISCONT INUED 01/16/2024 [id number] 4 ACEVEDO,AD CHESTER S 2022 180 [place] MULTIVITAMI NS W/MINERALS TAB TAKE ONE TABLET BY MOUTH DAILY ORAL ACTIVE JOSH ABRAHAM 2013 [place] OTHER CAP/TAB TAKE 1 APPLICAT ION topical ONCE DAILY NEEDED ACTIVE ROWENA LAURENT 2020 [place] ROSUVASTATI N CA 10MG TAB TAKE ONE-HALF TABLET BY MOUTH TWO TIMES A WEEK FOR CHOLESTE ROL ORAL ACTIVE 01/30/2025 [id number] 5 Frantz TRUJILLO AVID A 2023 13 [place] ROSUVASTATI N CA 10MG TAB TAKE ONE-HALF TABLET BY MOUTH TWO TIMES A WEEK FOR CHOLESTE ROL ORAL DISCONT INUED 02/15/2024 [id number] 4 ACEVEDO,AD CHESTER S 2022 13 [place] SEMAGLUTIDE 1MG/0.75ML INJ,SOLN,PE N,3ML INJECT 1MG SUBCUTAN EOUSLY ONCE A WEEK SUBCUT ANEOUS ACTIVE 06/25/2025 [id number] 5 Frantz TRUJILLO AVID A 2024 3 IELD SEMAGLUTIDE 1MG/0.75ML INJ,SOLN,PE N,3ML INJECT 1MG SUBCUTAN EOUSLY ONCE A WEEK SUBCUT ANEOUS DISCONT INUED 09/26/2024 [id number] 5 ALVARADO ANAYA 2023 3 I[place] SEMAGLUTIDE 1MG/0.75ML INJ,SOLN,PE N,3ML INJECT 1MG SUBCUTAN EOUSLY ONCE A WEEK SUBCUT ANEOUS DISCONT INUED 05/11/2024 [id number] 4 ALVARADO ANAYA 2023 1 I[place] SENNOSIDE 8.6MG (SENNA) TAB TAKE BY MOUTH DAILY ORAL ACTIVE JOSH ABRAHAM 2013 [facility] SPIRONOLACT ONE 25MG TAB TAKE TWO TABLETS BY MOUTH ONCE DAILY ORAL ACTIVE 01/30/2025 [id number] 4 TRUJILLOFrantz A 2023 180 [facility] SPIRONOLACT ONE 25MG TAB TAKE TWO TABLETS BY MOUTH DAILY [REPLACE S CHAPARRITALERRED NE] ORAL DISCONT INUED 02/15/2024 [id number] 4 KATIE ACEVEDO S 2022 180 [facility] VITAMIN D3 (CHOLECALCI FEROL) TAB TAKE BY MOUTH ORAL ACTIVE ROWENA LAURENT 2020 [facility] Immunizations Combined list of available immunizations from the Department of Defense and Veterans Affairs facilities. 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 Expiratio n Date: 08/31/[address] [facility] [place] [facility] INFLUENZA, HIGH-DOSE, QUADRIVALENT 2022 WEI OCHOA LEFT DELTO ID [id number] A 197 complet ed [facility] COVID-19 (MODERNA), MRNA, LNP-S, BIVALENT BOOSTER, PF, 50 MCG/0.5 ML OR 25MCG/0.25 ML DOSE 2021 SHEREEN IVERSON LEFT DELTO ID [id number] 229 complet ed Booster for Series, ADMINISTE [place] AT [place], [facility] COVID-19 (MODERNA), MRNA, LNP-S, PF, 100 MCG OR 50 MCG DOSE 3 2020 207 complet ed MOD; [id number]; 2 [facility] INFLUENZA VACCINE, QUADRIVALENT, ADJUVANTED 2020 205 complet ed [facility] COVID-19 (MODERNA), MRNA, LNP-S, PF, 100 MCG/0.5 ML DOSE 2 2020 207 complet ed MOD; [id number]; 1 [facility] COVID-19 (MODERNA), MRNA, LNP-S, PF, 100 MCG/0.5 ML DOSE 1 2020 207 complet ed MOD; [id number]; 1 [facility] INFLUENZA, UNSPECIFIED FORMULATION 2019 88 complet ed [facility] INFLUENZA, SEASONAL, INJECTABLE 2018 141 complet ed [facility] INFLUENZA, SEASONAL, INJECTABLE 2017 141 complet ed documenta tion influenza HD 03-21-18 Left deltoid [id number] exp 09-26-18 [facility] [place] ZOSTER RECOMBINANT 2 2017 187 complet ed [place] TDAP 2017 115 complet ed VA [...] CONJUGATE PCV 13 2015 133 complet ed [place] ZOSTER (HISTORICAL) 2013 121 complet ed [...] Jul 11, 2024 08:32 AM Reporting Lab: [facility] [place] [facility] [address] [address] Performing Lab: [facility] [address] [address] [place] MICROALBU MIN CREATININ E RATIO PANEL MICROALBUMI N/CREATININ E [MASS RATIO] IN URINE 6.9 mg/g 0 - 29.9 07/11 Specimen Type: URINE No comment entered. Ordering Provider: POPEYE TRUJILLO A Report Released Date/Time: Jul 11, 2024 08:32 AM Reporting Lab: [facility] [place] [facility] [address] [address] Performing [facility]: [facility] [address] [address] [place] MICROALBU MIN CREATININ E RATIO PANEL MICROALBUMI N [MASS/VOLUM E] IN URINE 0.7 mg/dL 07/11 Specimen Type: URINE No comment entered. Ordering Provider: POPEYE TRUJILLO A Report Released Date/Time: Jul 11, 2024 08:32 AM Reporting Lab: [facility] [address] [address] Performing Lab: [facility] [address] [place] MICROALBU MIN CREATININ E RATIO PANEL CREATININE [MASS/VOLUM E] IN URINE 101.71 mg/dL 07/11 Specimen Type: URINE No comment entered. Ordering Provider: POPEYE TRUJILLO A Report Released Date/Time: Jul 11, 2024 08:32 AM Reporting Lab: [facility] [address] [address] Performing Lab: [facility] [address] [address] [place] TSH THYROTROPIN [UNITS/VOLU ME] IN SERUM OR PLASMA 4.62 u[IU]/ mL 0.35 - 5.00 07/11 Specimen Type: SERUM No comment entered. Ordering Provider: POPEYE TRUJILLO A Report Released Date/Time: Jul 11, 2024 08:32 AM Reporting Lab: [facility] [address] [address] Performing Lab: [facility] [address] [address] [place] VITAMIN D (25-OH) 25-HYDROXYV ITAMIN D3 [MASS/VOLUM E] IN SERUM OR PLASMA 48 ng/mL 20 - 50 07/11 Specimen Type: SERUM No comment entered. Ordering Provider: POPEYE TRUJILLO A Report Released Date/Time: Jul 11, 2024 08:32 AM Reporting Lab: [facility] [address] [address] Performing Lab: [facility] [address] [place] CBC LEUKOCYTES [#/VOLUME] IN BLOOD BY AUTOMATED COUNT 9.27 10*3/u L 4.50 - 11.00 07/11 Specimen Type: BLOOD No comment entered. Ordering Provider: POPEYE TRUJILLO A Report Released Date/Time: Jul 11, 2024 08:32 AM Reporting Lab: [facility] [address] [address] Performing Lab: [facility] [address] [address] [place] CBC ERYTHROCYTE S [#/VOLUME] IN BLOOD BY AUTOMATED COUNT 4.41 10*6/u L 4.23 - 5.66 07/11 Specimen Type: BLOOD No comment entered. Ordering Provider: POPEYE TRUJILLO A Report Released Date/Time: Jul 11, 2024 08:32 AM Reporting Lab: [address] [address] Performing Lab: [facility] [address] [address] [place] CBC HEMOGLOBIN [MASS/VOLUM E] IN BLOOD 12.3 g/dL 12.8 - 17 07/11 L Specimen Type: BLOOD No comment entered. Ordering Provider: POPEYE TRUJILLO A Report Released Date/Time: Jul 11, 2024 08:32 AM Reporting Lab: [facility] [address] [address] Performing Lab: [facility] [address] [address] [place] CBC HEMATOCRIT [VOLUME FRACTION] OF BLOOD BY AUTOMATED COUNT 37.7 39.2 - 50.4 07/11 L Specimen Type: BLOOD No comment entered. Ordering Provider: POPEYE TRUJILLO A Report Released Date/Time: Jul 11, 2024 08:32 AM Reporting Lab: [facility] [address] [address] Performing Lab: [facility] [address] [address] [place] CBC MCV [ENTITIC VOLUME] BY AUTOMATED COUNT 85.5 fL 82 - 99 07/11 Specimen Type: BLOOD No comment entered. Ordering Provider: POPEYE TRUJILLO A Report Released Date/Time: Jul 11, 2024 08:32 AM Reporting Lab: [facility] [address] [address] Performing Lab: [facility] [address] [address] [place] CBC MCHC [MASS/VOLUM E] BY AUTOMATED COUNT 32.6 g/dL 30.8 - 35.1 07/11 Specimen Type: BLOOD No comment entered. Ordering Provider: POPEYE TRUJILLO A Report Released Date/Time: Jul 11, 2024 08:32 AM Reporting Lab: [facility] [address] [address] Performing Lab: [address] [address] [place] CBC PLATELETS [#/VOLUME] IN BLOOD BY AUTOMATED COUNT 277 10*3/u L 140 - 360 07/11 Specimen Type: BLOOD No comment entered. Ordering Provider: POPEYE TRUJILLO A Report Released Date/Time: Jul 11, 2024 08:32 AM Reporting Lab: [facility] [address] [address] Performing Lab: [facility] [address] [address] [place] CBC ERYTHROCYTE DISTRIBUTIO N WIDTH [RATIO] BY AUTOMATED COUNT 13.8 12.0 - 16.0 07/11 Specimen Type: BLOOD No comment entered. Ordering Provider: POPEYE TRUJILLO A Report Released Date/Time: Jul 11, 2024 08:32 AM Reporting Lab: [facility] [address] [address] Performing Lab: [facility] [address] [place] CBC MCH [ENTITIC MASS] BY AUTOMATED COUNT 27.9 pg 26.2 - 32.6 07/11 Specimen Type: BLOOD No comment entered. Ordering Provider: POPEYE TRUJILLO A Report Released Date/Time: Jul 11, 2024 08:32 AM Reporting Lab: [facility] [address] [address] Performing Lab: [facility] [address] [address] [place] LIPID PANEL, NON FASTING CHOLESTEROL [MASS/VOLUM E] IN SERUM OR PLASMA 147 mg/dL 07/11 Specimen Type: SERUM No comment entered. Ordering Provider: POPEYE TRUJILLO A Report Released Date/Time: Jul 11, 2024 08:32 AM Reporting Lab: [address] [address] Performing Lab: [address] [address] [place] LIPID PANEL, NON FASTING TRIGLYCERID E [MASS/VOLUM E] IN SERUM OR PLASMA 96 mg/dL 0 - 150 07/11 Specimen Type: SERUM No comment entered. Ordering Provider: POPEYE TRUJILLO A Report Released Date/Time: Jul 11, 2024 08:32 AM Reporting Lab: [address] [address] Performing Lab: [facility] [address] [address] [place] LIPID PANEL, NON FASTING CHOLESTEROL IN LDL [MASS/VOLUM E] IN SERUM OR PLASMA BY CALCULATION 76 mg/dL 0 - 129 07/11 Specimen Type: SERUM No comment entered. Ordering Provider: POPEYE TRUJILLO A Report Released Date/Time: Jul 11, 2024 08:32 AM Reporting Lab: [address] [address] Performing Lab: [address] [address] [place] LIPID PANEL, NON FASTING CHOLESTEROL .TOTAL/CHOL ESTEROL IN HDL [MASS RATIO] IN SERUM OR PLASMA 2.8 07/11 Specimen Type: SERUM No comment entered. Ordering Provider: POPEYE TRUJILLO A Report Released Date/Time: Jul 11, 2024 08:32 AM Reporting Lab: [facility] [address] [address] Performing Lab: [facility] [address] [address] [place] LIPID PANEL, NON FASTING CHOLESTEROL IN HDL [MASS/VOLUM E] IN SERUM OR PLASMA 52 mg/dL 40 - 60 07/11 Specimen Type: SERUM No comment entered. Ordering Provider: POPEYE TRUJILLO A Report Released Date/Time: Jul 11, 2024 08:32 AM Reporting Lab: [address] [address] Performing Lab: [address] [address] [place] BASIC METABOLIC PANEL (non-fast ing) UREA NITROGEN [MASS/VOLUM E] IN SERUM OR PLASMA 20 mg/dL 7 - 25 07/11 Specimen Type: SERUM No comment entered. Ordering Provider: POPEYE TRUJILLO A Report Released Date/Time: Jul 11, 2024 08:32 AM Reporting Lab: [address] [address] Performing Lab: [facility] [address] [address] [place] BASIC METABOLIC PANEL (non-fast ing) GLUCOSE [MASS/VOLUM E] IN SERUM OR PLASMA 135 mg/dL 65 - 100 07/11 H Specimen Type: SERUM No comment entered. Ordering Provider: POPEYE TRUJILLO A Report Released Date/Time: Jul 11, 2024 08:32 AM Reporting Lab: [address] [address] Performing Lab: [facility] [address] [address] [place] BASIC METABOLIC PANEL (non-fast ing) SODIUM [MOLES/VOLU ME] IN SERUM OR PLASMA 138 mmol/L 135 - 145 07/11 Specimen Type: SERUM No comment entered. Ordering Provider: POPEYE TRUJILLO A Report Released Date/Time: Jul 11, 2024 08:32 AM Reporting Lab: [facility] [address] [address] Performing Lab: [facility] [address] [address] [place] BASIC METABOLIC PANEL (non-fast ing) POTASSIUM [MOLES/VOLU ME] IN SERUM OR PLASMA 3.8 mmol/L 3.5 - 5.0 07/11 Specimen Type: SERUM No comment entered. Ordering Provider: POPEYE TRUJILLO A Report Released Date/Time: Jul 11, 2024 08:32 AM Reporting Lab: [facility] [address] [address] Performing Lab: [facility] [address] [address] [place] BASIC METABOLIC PANEL (non-fast ing) CHLORIDE [MOLES/VOLU ME] IN SERUM OR PLASMA 100 mmol/L 100 - 110 07/11 Specimen Type: SERUM No comment entered. Ordering Provider: POPEYE TRUJILLO A Report Released Date/Time: Jul 11, 2024 08:32 AM Reporting Lab: [facility] [address] [address] Performing Lab: [facility] [address] [address] [place] BASIC METABOLIC PANEL (non-fast ing) CARBON DIOXIDE, TOTAL [MOLES/VOLU ME] IN SERUM OR PLASMA 28 meq/L 20 - 30 07/11 Specimen Type: SERUM No comment entered. Ordering Provider: POPEYE TRUJILLO A Report Released Date/Time: Jul 11, 2024 08:32 AM Reporting Lab: [facility] [address] [address] Performing Lab: [facility] [address] [address] [place] BASIC METABOLIC PANEL (non-fast ing) CREATININE [MASS/VOLUM E] IN SERUM OR PLASMA 1.07 mg/dL 0.50 - 1.40 07/11 Specimen Type: SERUM No comment entered. Ordering Provider: POPEYE TRUJILLO A Report Released Date/Time: Jul 11, 2024 08:32 AM Reporting Lab: [facility] [address] [address] Performing Lab: [facility] [address] [place] BASIC METABOLIC PANEL (non-fast ing) GLOMERULAR FILTRATION RATE/1.73 SQ M.PREDICTED [VOLUME RATE/AREA] IN SERUM, PLASMA OR BLOOD BY CREATININE- BASED FORMULA (CKD-EPI 2020) 71 mL/min 60 07/11 Specimen Type: SERUM No comment entered. Ordering Provider: POPEYE TRUJILLO A Report Released Date/Time: Jul 11, 2024 08:32 AM Reporting Lab: [facility] [address] Performing Lab: [facility] [address] [place] LIVER FUNCTION PROTEIN [MASS/VOLUM E] IN SERUM OR PLASMA 7.7 g/dL 6.0 - 8.3 07/11 Specimen Type: SERUM No comment entered. Ordering Provider: POPEYE TRUJILLO A Report Released Date/Time: Jul 11, 2024 08:32 AM Reporting Lab: [facility] [address] [address] Performing Lab: [facility] [address] [address] [place] LIVER FUNCTION ALBUMIN [MASS/VOLUM E] IN SERUM OR PLASMA 3.5 g/dL 3.5 - 5.0 07/11 Specimen Type: SERUM No comment entered. Ordering Provider: POPEYE TRUJILLO A Report Released Date/Time: Jul 11, 2024 08:32 AM Reporting Lab: [facility] [address] [address] Performing Lab: [facility] [address] [place] LIVER FUNCTION ALKALINE PHOSPHATASE [ENZYMATIC ACTIVITY/VO LUME] IN SERUM OR PLASMA 90 U/L 40 - 150 07/11 Specimen Type: SERUM No comment entered. Ordering Provider: POPEYE TRUJILLO A Report Released Date/Time: Jul 11, 2024 08:32 AM Reporting Lab: [facility] [place] [facility] [address] [address] Performing Lab: [facility] [place] [facility] [address] [address] [place] LIVER FUNCTION ASPARTATE AMINOTRANSF ERASE [ENZYMATIC ACTIVITY/VO LUME] IN SERUM OR PLASMA 17 U/L 5 - 34 07/11 Specimen Type: SERUM No comment entered. Ordering Provider: POPEYE TRUJILLO A Report Released Date/Time: Jul 11, 2024 08:32 AM Reporting Lab: [facility] [address] [address] Performing Lab: [facility] [address] [address] [place] LIVER FUNCTION ALANINE AMINOTRANSF ERASE [ENZYMATIC ACTIVITY/VO LUME] IN SERUM OR PLASMA 12 U/L 07/11 Specimen Type: SERUM No comment entered. Ordering Provider: POPEYE TRUJILLO A Report Released Date/Time: Jul 11, 2024 08:32 AM Reporting Lab: [facility] [address] [address] Performing Lab: [facility] [place] [address] [address] [place] LIVER FUNCTION BILIRUBIN.T OTAL [MASS/VOLUM E] IN SERUM OR PLASMA 0.3 mg/dL 0.2 - 1.2 07/11 Specimen Type: SERUM No comment entered. Ordering Provider: POPEYE TRUJILLO A Report Released Date/Time: Jul 11, 2024 08:32 AM Reporting Lab: [facility] [address] [address] Performing Lab: [facility] [address] [address] [place] HEMOGLOBI N A1C PANEL HEMOGLOBIN [...] Aug 15, 2023 02:27 PM Reporting Lab: [address] [address] Performing Lab: [address] [address] [place] MICROALBU MIN CREATININ E RATIO PANEL MICROALBUMI N/CREATININ E [MASS RATIO] IN URINE 10.2 mg/g 0 - 29.9 02/28 Specimen Type: URINE No comment entered. Ordering Provider: ISABEL ANAYA Report Released Date/Time: Aug 15, 2023 02:27 PM Reporting Lab: [address] [address] Performing Lab: [address] [address] [place] MICROALBU MIN CREATININ E RATIO PANEL MICROALBUMI N [MASS/VOLUM E] IN URINE 1.7 mg/dL 02/28 Specimen Type: URINE No comment entered. Ordering Provider: ISABEL ANAYA Report Released Date/Time: Aug 15, 2023 02:27 PM Reporting Lab: [address] [address] Performing Lab: [address] [address] [place] MICROALBU MIN CREATININ E RATIO PANEL CREATININE [MASS/VOLUM E] IN URINE 166.35 mg/dL 02/28 Specimen Type: URINE No comment entered. Ordering Provider: ISABEL ANAYA Report Released Date/Time: Aug 15, 2023 02:27 PM Reporting Lab: [facility] [place] [facility] [address] [address] Performing Lab: [facility] [place] [facility] [address] [address] [facility] Vital Signs Combined list of inpatient and outpatient Vital Signs from Department of Defense and [facility] Affairs, ranging from 12 months to all on record, depending upon the facility. Vital Sign Value Date Comments Source SYSTOLIC BLOOD PRESSURE 124 07/17/2024 14:39:47 [facility] DIASTOLIC BLOOD PRESSURE 84 07/17/2024 14:39:47 [facility] PULSE OXIMETRY 99 07/17/2024 14:39:47 [place] WEIGHT 07/17/2024 14:39:47 [place] TEMPERATURE 97.6 07/17/2024 14:39:47 [facility] [place] PULSE 87 07/17/2024 14:39:47 [facility] SYSTOLIC BLOOD PRESSURE 128 03/06/2024 15:09:07 [facility] DIASTOLIC BLOOD PRESSURE 74 03/06/2024 15:09:07 [facility] PULSE OXIMETRY 98 03/06/2024 15:09:07 [place] WEIGHT 212 03/06/2024 15:09:07 [place] BMI 28 kg/m2 03/06/2024 15:09:07 [place] TEMPERATURE 97.6 03/06/2024 15:09:07 [facility] [place] PULSE 66 03/06/2024 15:09:07 [facility] [place] Encounters Combined list of: 1) Encounters from [facility] facilities going backup to the last 18 months, not all CT inpatient encounters are included; 2) Encounters from the Department of [facility] facilities going backup to 280 months. Location Location Details Encounter Type Encounter Number Reason For Visit Attending Provider ADM Date DC Date Status Disposition Source [facility] Outpatient Encounter [id number] 05/08 [facility] Encounter [id number] 05/08 [facility] Out[facility] Encounter [id number] 05/22 [facility] Encounter [id number] 06/29 [facility] Out[facility] Encounter [id number] 07/19 [facility] Encounter [id number] 07/20 [facility] OFFICE O/P EST MOD 30 MIN [id number] Diagnos is: ICD-10- CM R60.9 Edema, unspeci fied ANAYA,VICT ORIA J 08/14 [facility] Out[facility] Encounter [id number] 08/20 [facility] En[facility] [id number] 09/25 [facility] Encounter [id number] 11/01 [facility] Encounter [id number] 11/06 [facility] Encounter [id number] 11/15 [facility] Encounter [id number] 11/17 [facility] Out[facility] Encounter [id number] 11/18 [facility] Encounter [id number] 11/18 [facility] Encounter [id number] 11/19 [facility] Encounter [id number] 11/21 [facility] Encounter [id number] 11/22 [facility] [place] Outpatient Encounter [id number] 11/26 [facility] OFF[facility] O/P NEW LOW 30 MIN [id number] Diagnos is: ICD-10- CM 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 MIN SWEET F 12/18 [place] [facility] Out[facility] Encounter [id number] 01/28 [facility] [place] DIABETIC CUSTOM MOLDED SHOE [id number] Diagnos is: ICD-10- CM 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 94 Diagnos is: ICD-10- CM E11.9 Type 2 diabete s mellitu s without complic ations NOÉ TRUJILLO A 03/06 [place] [facility] ADMN SARSCOV2 VACC 1 DOSE [id number] NOÉ RTUJILLO VID A 03/06 [facility] Out[facility] Encounter [id number] 05/23 [facility] Encounter [id number] 05/26 [facility] Out[facility] Encounter [id number] 06/23 [facility] OFFICE O/[place] HI 40 MIN 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 tis of left lower limb NOÉ TRUJILLO VID A 07/17 [place] [facility] Out[facility] Encounter [id number] 07/17 [facility] Encounter [id number] 07/17 [facility] Out[facility] Encounter [id number] 07/17 [facility] Out[facility] Encounter [id number] 07/21 [facility] Encounter [id number] 07/29 [facility] Social History Combined list of available smoking, tobacco, and other social history from Department of Defense and Veterans Affairs facilities. Social History Type Response Date Comment Sourc e Tobacco smoking status NHIS VA-TOBACCO NEVER USED 03/06/2024 [facility] History of tobacco use VA-TOBACCO NEVER USED 02/14/2023 [facility] History of tobacco use VA-TOBACCO NEVER USED 01/27/2022 [facility] History of tobacco use VA-TOBACCO NEVER USED 01/27/2021 [facility] History of tobacco use VA-TOBACCO NEVER USED 11/08/2017 [facility] History of tobacco use LIFETIME NON-TOBACCO USER 11/08/2017 [facility] History of tobacco use LIFETIME NON-TOBACCO USER 11/08/2016 [facility] History of tobacco use LIFETIME NON-TOBACCO USER 10/21/2015 [facility] History of tobacco use LIFETIME NON-TOBACCO USER 09/10/2012 [facility]
--- OUTSIDE RECORDS SUMMARY | 2024-10-15 12:40 | XMS_ITS ---
Author Organization [facility] Address [address] [place] [address] Care Team Providers Care Precision Assembler Name Role Phone Marina MCDANIELS, Nubia Primary Care Provider Daryn Brito Jr Allergies No Known Allergies REASON FOR VISIT [...] Problem Status W/U Status Risk Notes Problem [id number] Aspirin long-term use (Z79.82) Active confirmed Vital Signs Blood pressure systolic 111 mm Hg 09/12/19 25 Blood pressure diastolic 11 mm Hg 025 Height 72 in 09/11/2024 Weight 193 lbs 09/11/2024 BMI 26.17 kg/m2 09/11/2024 Encounters Encounter Location Date Provider Diagnosis [facility] [address] [place] [phone] 09/11/2024 Daryn Pimentel Jr Colon cancer screening [...] * REUBEN AMOS ADOB:1945 (79 yo M)Acc No.[id number]:09/11/2024 Progress Notes Patient:?REUBEN AMOS Provider:?Daryn Pimentel MD :1945???Age:79 Y???Sex:Male Romeo e:09/11/2024 Address:[address] [place] [address] Pcp:Nubia Gray MD Subjective: * Chief Complaints: [...] he has had a recent hospitalization in [place] for leg cellulitis possibly relating to use [...] MD Date:?0 09/11/2024 Generated for Tu schrader/Yang/eTransmitting on:?10/15/2024 12:40 PM EDT History and Physical Notes * HPI [...] he has had a recent hospitalization in [place] for leg cellulitis possibly relating to use [...]
--- OUTSIDE RECORDS SUMMARY | 2024-10-15 12:40 | XMS_ITS | Patient Health Record ---
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 (Z79.82) Active confirmed Problem [id number] Aspirin long-term use (Z79.82) Active confirmed Problem 15576642 Iron deficiency anemia, unspecified iron deficiency anemia type (D50.9) Active confirmed Vital Signs Blood pressure diastolic 11 mm Hg 09/11/2024 Height 72 in 09/11/2024 Blood pressure systolic 111 mm Hg 09/11/2024 Weight 193 lbs 09/11/2024 BMI 26.17 kg/m2 09/11/2024 Encounters Encounter Location Date Provider Diagnosis [facility] [address] [place] [address] 09/11/2024 Daryn Pimentel Jr Colon cancer screening Z12.11 and Aspirin long-term use Z79.82 [facility] [address] [place] [address] 05/30/2024 Daryn Pimentel Jr Assessments Encounter Date [...] OF [place] [address] [place] [address] [id number] JULIO CREUBEN NIELSON Self - patient is the insured 2 [employer] [address] [place] [address] [phone] [id number] DANDREREUBEN Self - patient is the insured [...]
--- OUTSIDE RECORDS SUMMARY | 2024-10-15 12:40 | XMS_ITS | Clinical Summary ---
Author Organization [address] Address [address] [place] [phone] Phone Care Team Providers Care Adjunct Lecturer Name Role Phone Jagjit Hancock Primary Care Provider Gigi price Encounters Date Type Department Care Team Description 08/16/2024 Lab Requisition [facility] [address] [place] [phone] Rebecca Gomez MD Essential (primary) hypertension; Anemia, unspecified; Cellulitis, unspecified; Type 2 diabetes mellitus without complications (CMS/HCC V24, CMS/[facility] V28) 08/08/2024 Lab Requisition [facility] [address] [place] [phone] Rebecca Gomez MD Essential (primary) hypertension; Anemia, unspecified; Cellulitis, unspecified; Type 2 diabetes mellitus without complications (CMS/HCC V24, CMS/[facility] V28) 08/03/2024 Lab Requisition [facility] [address] [place] [phone] Mary Cotter PA Diarrhea, unspecified 08/02/2024 Lab Requisition [facility] [address] [place] [phone] Rebecca Gomez MD Essential (primary) hypertension; Anemia, unspecified; Cellulitis, unspecified; Type 2 diabetes mellitus without complications (CMS/[facility] V24, CMS/[facility] V28) 07/26/2024 Lab Requisition [facility] [address] [place] [address] Rebecca Gomez MD Essential (primary) hypertension; Anemia, unspecified; Cellulitis, unspecified; Type 2 diabetes mellitus without complications ([facility] V24, [facility] V28) 07/23/[address] [facility] [address] [facility] [place] [phone] Jagjit Hancock PA Hyperlipidemia, unspecified; Essential (primary) hypertension; Anemia, unspecified; Type 2 diabetes mellitus without complications ([facility] V24, [facility] V28); Vitamin D deficiency, unspecified; [...] LAB HEMETOLOGY METHOD 08/18/2024 11:59 AM EDT [facility] RBC 4.90 4.50 - 5.50 M/mcL LAB HEMETOLOGY METHOD 08/18/2024 11:59 AM EDT [facility] Hemoglobin 14.1 13.5 - 17.5 g/dL LAB HEMETOLOGY METHOD 08/18/2024 11:59 AM T [facility] Hematocrit 41.1(L) 42.0 - 54.0 % LAB HEMETOLOGY METHOD 08/18/2024 11:59 AM EDT [facility] MCV 83.4 79.0 - 98.0 FL LAB HEMETOLOGY METHOD 08/18/2024 11:59 AM EDT [facility] MCH 28.6 27.0 - 32.0 pcg LAB HEMETOLOGY METHOD 08/18/2024 11:59 AM EDT [facility] MCHC 34.3 32.0 - 37.0 g/dL LAB HEMETOLOGY METHOD 08/18/2024 11:59 AM EDT [facility] RDW 14.2 11.0 - 15.0 % LAB HEMETOLOGY METHOD 08/18/2024 11:59 AM EDT [facility] Platelets 266 130 - 400 K/mcL LAB HEMETOLOGY METHOD 08/18/2024 11:59 AM EDT [facility] MPV 8.9 7.0 - 11.0 FL LAB HEMETOLOGY METHOD 08/18/2024 11:59 AM EDT [facility] NRBC 0.0 <1.0 % LAB HEMETOLOGY METHOD 08/18/2024 11:59 AM EDT [facility] NRBC Absolute 0.00 <0.10 K/mcL LAB HEMETOLOGY METHOD 08/18/2024 11:59 AM T [facility] Blood Venous blood specimen / Unknown Venipuncture / Unknown 08/18/2024 7:18 AM EDT 08/18/2024 11:03 AM EDT us Rebecca Gomez MD LAB BLOOD ORDERABLES Final Resul t [facility] [address] [place] [address], * (ABNORMAL) Comprehensive metabolic panel (08/18/2024 7:18 AM EDT) Only the most recent of5 resultswithin the time period is included. Sodium 132(L) 133 - 145 mmol/L LAB CHEMISTRY METHOD 08/18/2024 12:46 PM [facility] Potassium 4.4 3.5 - 5.5 mmol/L LAB CHEMISTRY METHOD 08/18/2024 12:46 PM [facility] Chloride 95(L) 96 - 110 mmol/L LAB CHEMISTRY METHOD 08/18/2024 12:46 PM [facility] CO2 27 21 - 32 mmol/L LAB CHEMISTRY METHOD 08/18/2024 12:46 PM [facility] Anion Gap 10 3 - 11 LAB CHEMISTRY METHOD 08/18/2024 12:46 PM [facility] Glucose 88 70 - 100 mg/dL LAB CHEMISTRY METHOD 08/18/2024 12:46 PM [facility] BUN 34(H) 5 - 25 mg/dL LAB CHEMISTRY METHOD 08/18/2024 12:46 PM [facility] Creatinine 1.19 0.70 - 1.30 mg/dL LAB CHEMISTRY METHOD 08/18/2024 12:46 PM [facility] eGFR 63 >=60 mL/min/1. 73m2 LAB CHEMISTRY METHOD 08/18/2024 12:46 PM [facility] Comment:Calculation based on the??Chronic Kidney Disease Epidemiology Collaboration (CKD-EPI) equation refit??without adjustment for race. BUN/Creatinine Ratio 28.6 LAB CHEMISTRY METHOD 08/18/2024 12:46 PM [facility] Calcium 9.7 8.5 - 10.5 mg/dL LAB CHEMISTRY METHOD 08/18/2024 12:46 PM [facility] AST (SGOT) 30 10 - 42 unit/L LAB CHEMISTRY METHOD 08/18/2024 12:46 PM [facility] ALT (SGPT) 34 10 - 60 unit/L LAB CHEMISTRY METHOD 08/18/2024 12:46 PM EDT [facility] Alkaline Phosphatase 93 42 - 121 unit/L LAB CHEMISTRY METHOD 08/18/2024 12:46 PM EDT [facility] Total Protein 7.2 6.0 - 8.0 g/dL LAB CHEMISTRY METHOD 08/18/2024 12:46 PM EDT [facility] Albumin 3.4 3.2 - 5.0 g/dL LAB CHEMISTRY METHOD 08/18/2024 12:46 PM EDT [facility] Total Bilirubin 0.6 0.0 - 1.4 mg/dL LAB CHEMISTRY METHOD 08/18/2024 12:46 PM EDT [facility] Blood Venous blood specimen / Unknown Venipuncture / Unknown 08/18/2024 7:18 AM EDT 08/18/2024 11:03 AM EDT Rebecca Gomez MD LAB BLOOD ORDERABLES Final Resul t Performing Organization Address City/[facility]/ZIP Co de Phone Number [facility] [address] [place] [address], [place] [phone] * (ABNORMAL) Clostridium difficile molecular study (08/02/2024 7:40 PM EST) Pathologist [facility] Clostridium difficile PCR Positive (AA) Negative LAB MICROBIOLOGY METHOD 08/03/2024 12:41 PM EDT [facility] Comment: CRITICAL RESULT POSITIVE FOR TOXIN PRODUCING CLOSTRIDIOIDES DIFFICILE, NO ADDITIONAL TESTING IS NECESSARY. REPEAT SAMPLES SHOULD NOT BE SUBMITTED FOR TEST OF CURE. Stool Rectum structure / Unknown Non-blood Collection / Unknown 08/02/2024 7:40 PM EST 08/03/2024 11:45 AM EDT us Mary JOHNSON LAB MICROBIOLOGY - GENERAL ORD ERABLES Final Result Performing Organization Address City/[facility]/ZIP Co de Phone Number [facility] [address] [place] [address], [place] [phone] * Clostridium difficile toxin (08/02/2024 7:40 PM EST) C difficile Toxins A+B, EIA 08/03/2024 11:45 AM EDT [facility] Comment:Refer to C. difficil e PCR assay for results. Stool Rectum structure / Unknown Non-blood Collection / Unknown 08/02/2024 7:40 PM EST 08/03/2024 10:19 AM EDT us Mary JOHNSON LAB MICROBIOLOGY - GENERAL ORD ERABLES Final Result [facility] [address] [place] [address], [place] [phone] * Lipid panel with reflex to direct LDL (07/23/2024 8:56 AM EST) Cholesterol 117 0 - 200 mg/dL LAB CHEMISTRY METHOD 07/23/2024 1:58 PM [facility] Triglycerides 136 0 - 150 mg/dL LAB CHEMISTRY METHOD 07/23/2024 1:58 PM [facility] HDL 53 >=40 mg/dL LAB CHEMISTRY METHOD 07/23/2024 1:58 PM [facility] LDL Calculated 37 0 - 100 mg/dL LAB CHEMISTRY METHOD 07/23/2024 1:58 PM [facility] VLDL Cholesterol Quique 27.2 mg/dL LAB CHEMISTRY METHOD 07/23/2024 1:58 PM [facility] Non HDL Chol. (LDL+VLDL) 64 <145 mg/dL LAB CHEMISTRY METHOD 07/23/2024 1:58 PM [facility] Chol/HDL Ratio 2.2 0.0 - 4.4 LAB CHEMISTRY METHOD 07/23/2024 1:58 PM [facility] Blood Venous blood specimen / Unknown Venipuncture / Unknown 07/23/2024 8:56 AM EST 07/23/2024 10:27 AM EST Jagjit JOHNSON LAB BLOOD ORDERABLES Final Re sult Performing Organization Address [facility]/ZIP Co de Phone Number [facility] [address] [place] [address], [place] [phone] * Vitamin D 25 hydroxy (07/23/2024 8:56 AM EST) Vit D, 25-Hydroxy 41.0 30.0 - 80.0 ng/mL LAB CHEMISTRY METHOD 07/23/2024 1:34 PM EST [facility] Blood Venous blood specimen / Unknown Venipuncture / Unknown 07/23/2024 8:56 AM EST 07/23/2024 10:27 AM EST Jagjit JOHNSON LAB BLOOD ORDERABLES Final Re sult Performing Organization Address [facility] Co de Phone Number [facility] [address] [place] [address], [place] [phone] * (ABNORMAL) Thyroid stimulating hormone (07/23/2024 8:56 AM EST) [facility] TSH 4.10(H) 0.40 - 4.00 mcIU/mL LAB CHEMISTRY METHOD 07/23/2024 1:35 PM EST [facility] Blood Venous blood specimen / Unknown Venipuncture / Unknown 07/23/2024 8:56 AM EST 07/23/2024 10:27 AM EST Jagjit JOHNSON LAB BLOOD ORDERABLES Final Re sult Performing Organization Address City/[facility]/ZIP Co de Phone Number [facility] [address] [place] [address], [place] [phone] * (ABNORMAL) Hemoglobin A1c (07/23/2024 8:56 AM EST) Pathologist [facility] Hemoglobin A1C 6.6(H) <6.5 % LAB CHEMISTRY METHOD 07/23/2024 9:50 PM EST [facility] Mean Bld Glu Estim. 143 mg/dL LAB CHEMISTRY METHOD 07/23/2024 9:50 PM EST [facility] Blood Venous blood specimen / Unknown Venipuncture / Unknown 07/23/2024 8:56 AM EST 07/23/2024 10:27 AM EST Jagjit JOHNSON LAB BLOOD ORDERABLES Final Re sult Performing Organization Address [facility]/ZIP Co de Phone Number [facility] [address] [place] [address], [place] [phone] * (ABNORMAL) Folate (07/23/2024 8:56 AM EST) Folate 17.7(H) 2.8 - 17.0 ng/ml LAB CHEMISTRY METHOD 07/23/2024 1:58 PM EST [facility] Blood Venous blood specimen / Unknown Venipuncture / Unknown 07/23/2024 8:56 AM EST 07/23/2024 10:27 AM EST Jagjit JOHNSON LAB BLOOD ORDERABLES Final Re sult Performing Organization Address [facility]/ZIP Co de Phone Number [facility] [address] [place] [address], [place] [phone] * Vitamin B12 (07/23/2024 8:56 AM EST) Vitamin B-12 761 250 - 900 pcg/mL LAB CHEMISTRY METHOD 07/23/2024 1:58 PM EST [facility] Blood Venous blood specimen / Unknown Venipuncture / Unknown 07/23/2024 8:56 AM EST 07/23/2024 10:27 AM EST Jagjit JOHNSON LAB BLOOD ORDERABLES Final Re sult [facility] [address] [place] [address], [place] [phone] from Last 3 Months Insurance MEDICARE [facility] Care Teams Adjunct Lecturer Relationship Specialty Start Date End Date Jagjit Hancock PA [address] [place] [address] PCP - General Physician Flower Grader 07/23/24
--- OUTSIDE RECORDS SUMMARY | 2024-10-15 12:40 | XMS_ITS | Encounter Summary ---
Author Organization [facility] Address [address] [place] [address] Care Team Providers Care Ticket Dispatcher Name Role Phone Jagjit Hancock Primary Care Provider Gigi price Encounter Details Date Type Department Care Team (Latest Contact Info) Description 08/02/2024 Lab Requisition [facility] - Main Lab [address] [place] [phone] Rebecca Gomez MD [address] [place] [phone] Essential (primary) hypertension; Anemia, unspecified; Cellulitis, unspecified; [...] mmol/L LAB CHEMISTRY METHOD 08/04/2024 12:15 PM [facility] Potassium 3.7 3.5 - 5.5 mmol/L LAB CHEMISTRY METHOD 08/04/2024 12:15 PM [facility] Chloride 97 96 - 110 mmol/L LAB CHEMISTRY METHOD 08/04/2024 12:15 PM [facility] CO2 24 21 - 32 mmol/L LAB CHEMISTRY METHOD 08/04/2024 12:15 PM [facility] Anion Gap 12(H) 3 - 11 LAB CHEMISTRY METHOD 08/04/2024 12:15 PM [facility] Glucose 93 70 - 100 mg/dL LAB CHEMISTRY METHOD 08/04/2024 12:15 PM [facility] BUN 36(H) 5 - 25 mg/dL LAB CHEMISTRY METHOD 08/04/2024 12:15 PM [facility] Creatinine 1.11 0.70 - 1.30 mg/dL LAB CHEMISTRY METHOD 08/04/2024 12:15 PM [facility] eGFR 68 >=60 mL/min/1. 73m2 LAB CHEMISTRY METHOD 08/04/2024 12:15 PM [facility] Comment:Calculation based on the??Chronic Kidney Disease Epidemiology Collaboration (CKD-EPI) equation refit??without adjustment for race. BUN/Creatinine Ratio 32.4 LAB CHEMISTRY METHOD 08/04/2024 12:15 PM [facility] Calcium 9.6 8.5 - 10.5 mg/dL LAB CHEMISTRY METHOD 08/04/2024 12:15 PM [facility] AST (SGOT) 18 10 - 42 unit/L LAB CHEMISTRY METHOD 08/04/2024 12:15 PM [facility] ALT (SGPT) 19 10 - 60 unit/L LAB CHEMISTRY METHOD 08/04/2024 12:15 PM EDT [facility] Alkaline Phosphatase 83 42 - 121 unit/L LAB CHEMISTRY METHOD 08/04/2024 12:15 PM EDT [facility] Total Protein 6.9 6.0 - 8.0 g/dL LAB CHEMISTRY METHOD 08/04/2024 12:15 PM EDT [facility] Albumin 3.3 3.2 - 5.0 g/dL LAB CHEMISTRY METHOD 08/04/2024 12:15 PM EDT [facility] Total Bilirubin 0.5 0.0 - 1.4 mg/dL LAB CHEMISTRY METHOD 08/04/2024 12:15 PM EDT [facility] Blood Venous blood specimen / Unknown Venipuncture / Unknown 08/04/2024 8:03 AM EDT 08/04/2024 10:52 AM EDT Rebecca Gomez MD LAB BLOOD ORDERABLES Final Resul t [facility] [address] [place] [address], * (ABNORMAL) Complete blood count (08/04/2024 8:03 AM EDT) WBC 6.9 4.8 - 10.8 K/mcL LAB HEMETOLOGY METHOD 08/04/2024 11:38 AM EDT [facility] RBC 4.60 4.50 - 5.50 M/mcL LAB HEMETOLOGY METHOD 08/04/2024 11:38 AM EDT [facility] Hemoglobin 12.8(L) 13.5 - 17.5 g/dL LAB HEMETOLOGY METHOD 08/04/2024 11:38 AM EDT [facility] Hematocrit 39.0(L) 42.0 - 54.0 % LAB HEMETOLOGY METHOD 08/04/2024 11:38 AM EDT [facility] MCV 85.2 79.0 - 98.0 FL LAB HEMETOLOGY METHOD 08/04/2024 11:38 AM EDT [facility] MCH 27.9 27.0 - 32.0 pcg LAB HEMETOLOGY METHOD 08/04/2024 11:38 AM EDT [facility] MCHC 32.8 32.0 - 37.0 g/dL LAB HEMETOLOGY METHOD 08/04/2024 11:38 AM EDT [facility] RDW 13.9 11.0 - 15.0 % LAB HEMETOLOGY METHOD 08/04/2024 11:38 AM EDT [facility] Platelets 281 130 - 400 K/mcL LAB HEMETOLOGY METHOD 08/04/2024 11:38 AM EDT [facility] MPV 9.3 7.0 - 11.0 FL LAB HEMETOLOGY METHOD 08/04/2024 11:38 AM EDT [facility] NRBC 0.0 <1.0 % LAB HEMETOLOGY METHOD 08/04/2024 11:38 AM EDT [facility] NRBC Absolute 0.00 <0.10 K/mcL LAB HEMETOLOGY METHOD 08/04/2024 11:38 AM EDT [facility] Blood Venous blood specimen / Unknown Venipuncture / Unknown 08/04/2024 8:03 AM EDT 08/04/2024 10:52 AM EDT us Rebecca Gomez MD LAB BLOOD ORDERABLES Final Resul t [facility] [address] [place] [address], documented in this encounter Visit Diagnoses Diagnosis [...] documented as of this encounter Care Teams Ticket Dispatcher Relationship Specialty Start Date End Date Jagjit Hancock PA [address] [place] [phone] PCP - General Physician Tube Washer 07/23/24 documented as of this encounter
--- OUTSIDE RECORDS SUMMARY | 2024-10-15 12:40 | XMS_ITS ---
Author Organization [facility] Address [address] [place] [address] Care Team Providers Care Certified Surgical Technologist Name Role Phone Marina MCDANIELS, Nubia Zelaya Primary Care Provider Un available SebastiánUcheSsusy Unavailable [phone] REASON FOR VISIT RX Medications Medication SIG (Take, Route, Frequency, Duration) Notes Start Date End Date Status Ciclopirox Olamine 0.77 % 1 application to affected area Externally Twice a day for 30 days 09/10/2024 Active Encounters Encounter Location Date Provider Diagnosis [facility] [address] [place] [address] 09/10/2024 Sussy Sebastián Plan Of Treatment Medication Medication Name Sig Start Date Stop Date Notes Ciclopirox Olamine 0.77 % 1 application to affected area Externally Twice a day for 30 days 09/10/2024 Next Appt Details Provider Name:Sussy Patterson Sebastián , 12/11/2024 03:00:00 PM, [address] [place], [phone], Progress Notes * Tobin BEYDOB:1945 ( 79 yo M)Acc No.[id number]:09/10/2024 Patient:Tobin LUIS :1945???Age:79 Y???Sex:Male Address: [place], [address] * Refills? Start Ciclopirox Olamine Cream, 0.77 %, Externally, 60, 1 application to affected area, Twice a day, 30 days, Refills=4 * true * Date:? Generated for Tu schrader/Yang/Jean on:?10/15/2024 12:40 PM EDT
--- OUTSIDE RECORDS SUMMARY | 2024-10-15 12:41 | XMS_ITS ---
Author Organization [facility] Address [address] [facility] [place] [address] Care Team Providers Care Clinic Receptionist Name Role Phone Marina MCDANIELS, Nubia Zelaya Primary Care Provider Un available Black, Sussy Unavailable [phone] Medications Medication SIG (Take, Route, Frequency, Duration) [...] Active Encounters Encounter Location Date Provider Diagnosis [facility] [address] [phone] 09/01/2024 Sussy Lowery Plan Of Treatment Next Appt Details Provider Name:Sussy Lowery , 12/11/2024 03:00:00 PM, [address] [place] [address], [phone], Progress Notes * Tobin BEYDOB:1945 ( 79 yo M)Acc No.[id number]:09/01/2024 Progress Note Patient:?Tobin BEY Provider:?Sussy Lowery DPM :1945???Age:79 Y???Sex:Male Romeo e:09/01/2024 Address:[address] [place] [address] [phone] Pcp:Jayjay Graham Subjective: * Chief Complaints: * [...]
--- OUTSIDE RECORDS SUMMARY | 2024-10-15 12:41 | XMS_ITS | Encounter Summary ---
Author Organization [facility] Address [address] [place] [address] Care Team Providers Care Wireworker Supervisor Name Role Phone Jagjit Hancock Primary Care Provider Gigi price Encounter Details Date Type Department Care Team (Latest Contact Info) Description 07/26/2024 Lab Requisition [facility] - Main Lab [address] [place] [phone] Rebecca Gomez MD [address] [place] [phone] Essential (primary) hypertension; Anemia, unspecified; Cellulitis, unspecified; [...] mmol/L LAB CHEMISTRY METHOD 07/28/2024 1:46 PM [facility] Potassium 4.3 3.5 - 5.5 mmol/L LAB CHEMISTRY METHOD 07/28/2024 1:46 PM [facility] Chloride 100 96 - 110 mmol/L LAB CHEMISTRY METHOD 07/28/2024 1:46 PM [facility] CO2 24 21 - 32 mmol/L LAB CHEMISTRY METHOD 07/28/2024 1:46 PM [facility] Anion Gap 12(H) 3 - 11 LAB CHEMISTRY METHOD 07/28/2024 1:46 PM [facility] Glucose 103(H) 70 - 100 mg/dL LAB CHEMISTRY METHOD 07/28/2024 1:46 PM [facility] BUN 28(H) 5 - 25 mg/dL LAB CHEMISTRY METHOD 07/28/2024 1:46 PM [facility] Creatinine 1.06 0.70 - 1.30 mg/dL LAB CHEMISTRY METHOD 07/28/2024 1:46 PM [facility] eGFR 72 >=60 mL/min/1. 73m2 LAB CHEMISTRY METHOD 07/28/2024 1:46 PM [facility] Comment:Calculation based on the??Chronic Kidney Disease Epidemiology Collaboration (CKD-EPI) equation refit??without adjustment for race. BUN/Creatinine Ratio 26.4 LAB CHEMISTRY METHOD 07/28/2024 1:46 PM [facility] Calcium 9.1 8.5 - 10.5 mg/dL LAB CHEMISTRY METHOD 07/28/2024 1:46 PM [facility] AST (SGOT) 19 10 - 42 unit/L LAB CHEMISTRY METHOD 07/28/2024 1:46 PM [facility] ALT (SGPT) 18 10 - 60 unit/L LAB CHEMISTRY METHOD 07/28/2024 1:46 PM [facility] Alkaline Phosphatase 88 42 - 121 unit/L LAB CHEMISTRY METHOD 07/28/2024 1:46 PM [facility] Total Protein 6.7 6.0 - 8.0 g/dL LAB CHEMISTRY METHOD 07/28/2024 1:46 PM [facility] Albumin 3.3 3.2 - 5.0 g/dL LAB CHEMISTRY METHOD 07/28/2024 1:46 PM [facility] Total Bilirubin 0.5 0.0 - 1.4 mg/dL LAB CHEMISTRY METHOD 07/28/2024 1:46 PM [facility] Blood Venous blood specimen / Unknown Venipuncture / Unknown 07/28/2024 7:32 AM EST 07/28/2024 11:16 AM EST Rebecca Gomez MD LAB BLOOD ORDERABLES Final Resul t [facility] [address] [place] [address], [place] [phone] * (ABNORMAL) Complete blood count (07/28/2024 7:32 AM EST) WBC 5.6 4.8 - 10.8 K/mcL LAB HEMETOLOGY METHOD 07/28/2024 1:32 PM [facility] RBC 4.50 4.50 - 5.50 M/mcL LAB HEMETOLOGY METHOD 07/28/2024 1:32 PM [facility] Hemoglobin 12.5(L) 13.5 - 17.5 g/dL LAB HEMETOLOGY METHOD 07/28/2024 1:32 PM [facility] Hematocrit 38.5(L) 42.0 - 54.0 % LAB HEMETOLOGY METHOD 07/28/2024 1:32 PM [facility] MCV 86.5 79.0 - 98.0 FL LAB HEMETOLOGY METHOD 07/28/2024 1:[address] [facility] MCH 28.1 27.0 - 32.0 pcg LAB HEMETOLOGY METHOD 07/28/2024 1:[address] [facility] MCHC 32.5 32.0 - 37.0 g/dL LAB HEMETOLOGY METHOD 07/28/2024 1:[address] [facility] RDW 13.8 11.0 - 15.0 % LAB HEMETOLOGY METHOD 07/28/2024 1:[address] [facility] Platelets 265 130 - 400 K/mcL LAB HEMETOLOGY METHOD 07/28/2024 1:[address] [facility] MPV 9.7 7.0 - 11.0 FL LAB HEMETOLOGY METHOD 07/28/2024 1:[address] [facility] NRBC 0.0 <1.0 % LAB HEMETOLOGY METHOD 07/28/2024 1:[address] [facility] NRBC Absolute 0.00 <0.10 K/mcL LAB HEMETOLOGY METHOD 07/28/2024 1:32 PM [facility] Blood Venous blood specimen / Unknown Venipuncture / Unknown 07/28/2024 7:32 AM EST 07/28/2024 11:16 AM EST Rebecca Gomez MD LAB BLOOD ORDERABLES Final Resul t [facility] [address] [place] [address], documented in this encounter Visit Diagnoses Diagnosis [...] documented as of this encounter Care Teams Wireworker Supervisor Relationship Specialty Start Date End Date Jagjit Hancock PA [address] [place] [phone] PCP - General Physician Car And Yard Supervisor 07/23/24 documented as of this encounter
--- OUTSIDE RECORDS SUMMARY | 2024-10-15 12:41 | XMS_ITS | Encounter Summary ---
Author Organization [facility] Address [address] [place] [address] Care Team Providers Care Peanut Shaker Name Role Phone Jagjit Hancock Primary Care Provider Gigi price Encounter Details Date Type Department Care Team (Late st Contact Info) Description 08/03/2024 Lab Requisition [facility] - Main Lab [address] [place] [phone] Mary Cotter PA [address] [place] [phone] Diarrhea, unspecified Social History Tobacco Use Types [...] MICROBIOLOGY METHOD 08/03/2024 12:41 PM EDT [facility] Comment: CRITICAL RESULT POSITIVE FOR TOXIN PRODUCING CLOSTRIDIOIDES DIFFICILE, NO ADDITIONAL TESTING IS NECESSARY. REPEAT SAMPLES SHOULD NOT BE SUBMITTED FOR TEST OF CURE. Stool Rectum structure / Unknown Non-blood Collection / Unknown 08/02/2024 7:40 PM EST 08/03/2024 11:45 AM EDT [facility] MICROBIOLOGY - GENERAL ORD ERABLES Final Result Performing Organization Address City/[facility]/ZIP Co de Phone Number [facility] [address] [place] [address], [place] [phone] * Clostridium difficile toxin (08/02/2024 7:40 PM EST) C difficile Toxins A+B, EIA 08/03/2024 11:45 AM EDT [facility] Comment:Refer to C. difficil e PCR assay for results. Stool Rectum structure / Unknown Non-blood Collection / Unknown 08/02/2024 7:40 PM EST 08/03/2024 10:19 AM EDT [facility] MICROBIOLOGY - GENERAL ORD ERABLES Final Result Performing Organization Address [facility] Co de Phone Number [facility] [address] [place] [address], [place] [phone] documented in this encounter Visit Diagnoses Diagnosis Diarrhea, unspecified documented in this encounter Additional Health Concerns Infection Onset Date Last Indicated Resolved Time C. difficile 08/02/2024 08/02/2024 08/26/2024 7:06 PM EDT C. Diff Rule-Out Infection 08/03/2024 08/02/2024 0 08/03/2024 11:45 AM EDT documented as of this encounter Care Teams Peanut Shaker Relationship Specialty Start Date End Date Jagjit Hancock PA [address] [place] [phone] PCP - General Physician Sales Team Leader 07/23/24 documented as of this encounter
--- OUTSIDE RECORDS SUMMARY | 2024-10-15 12:41 | XMS_ITS | Encounter Summary ---
Author Organization [facility] Address [address] [place] [address] Care Team Providers Care Compliance Lead Name Role Phone Jagjit Hancock Primary Care Provider Gigi price Encounter Details Date Type Department Care Team (Latest Contact Info) Description 07/23/2024 Lab Requisition [facility] - Main Lab [address] [facility] [place] [address] Jagjit Hancock PA [address] [place] [phone] Hyperlipidemia, unspecified; Essential (primary) hypertension; Anemia, unspecified; [...] LAB CHEMISTRY METHOD 07/23/2024 1:35 PM EST [facility] Blood Venous blood specimen / Unknown Venipuncture / Unknown 07/23/2024 8:56 AM EST 07/23/2024 10:27 AM EST Jagjit JOHNSON LAB BLOOD ORDERABLES Final Re sult Performing Organization Address City/[facility]/ZIP Co de Phone Number [facility] [address] [place] [address], [place] [phone] * (ABNORMAL) Folate (07/23/2024 8:56 AM EST) Pathologist [facility] Folate 17.7(H) 2.8 - 17.0 ng/ml LAB CHEMISTRY METHOD 07/23/2024 1:58 PM EST [facility] Blood Venous blood specimen / Unknown Venipuncture / Unknown 07/23/2024 8:56 AM EST 07/23/2024 10:27 AM EST Jagjit JOHNSON LAB BLOOD ORDERABLES Final Re sult Performing Organization Address City/[facility]/ZIP Co de Phone Number [facility] [address] [place] [address], [place] [phone] * Vitamin B12 (07/23/2024 8:56 AM EST) Pathologist [facility] Vitamin B-12 761 250 - 900 pcg/mL LAB CHEMISTRY METHOD 07/23/2024 1:58 PM EST [facility] Blood Venous blood specimen / Unknown Venipuncture / Unknown 07/23/2024 8:56 AM EST 07/23/2024 10:27 AM EST Jagjit JOHSNON LAB BLOOD ORDERABLES Final Re sult Performing Organization Address City/[facility]/ZIP Co de Phone Number [facility] [address] [place] [address], [place] [phone] * Vitamin D 25 hydroxy (07/23/2024 8:56 AM EST) Vit D, 25-Hydroxy 41.0 30.0 - 80.0 ng/mL LAB CHEMISTRY METHOD 07/23/2024 1:34 PM EST [facility] Blood Venous blood specimen / Unknown Venipuncture / Unknown 07/23/2024 8:56 AM EST 07/23/2024 10:27 AM EST Jagjit JOHNSON LAB BLOOD ORDERABLES Final Re sult Performing Organization Address [facility]/ZIP Co de Phone Number [facility] [address] [place] [address], [place] [phone] * (ABNORMAL) Hemoglobin A1c (07/23/2024 8:56 AM EST) Hemoglobin A1C 6.6(H) <6.5 % LAB CHEMISTRY METHOD 07/23/2024 9:50 PM [facility] Mean Bld Glu Estim. 143 mg/dL LAB CHEMISTRY METHOD 07/23/2024 9:50 PM [facility] Blood Venous blood specimen / Unknown Venipuncture / Unknown 07/23/2024 8:56 AM EST 07/23/2024 10:27 AM EST Jagjit JOHNSON LAB BLOOD ORDERABLES Final Re sult Performing Organization Address [facility]/ZIP Co de Phone Number [facility] [address] [place] [address], [place] [phone] * Lipid panel with reflex to direct [...] JOHNSON LAB BLOOD ORDERABLES Final Re sult [facility] [address] [place] [address], * (ABNORMAL) Comprehensive metabolic panel (07/23/2024 8:56 AM EST) Sodium 137 133 - 145 mmol/L LAB CHEMISTRY METHOD 07/23/2024 1:58 PM [facility] Potassium 4.1 3.5 - 5.5 mmol/L LAB CHEMISTRY METHOD 07/23/2024 1:58 PM [facility] Chloride 103 96 - 110 mmol/L LAB CHEMISTRY METHOD 07/23/2024 1:58 PM [facility] CO2 23 21 - 32 mmol/L LAB CHEMISTRY METHOD 07/23/2024 1:58 PM [facility] Anion Gap 11 3 - 11 LAB CHEMISTRY METHOD 07/23/2024 1:58 PM [facility] Glucose 156(H) 70 - 100 mg/dL LAB CHEMISTRY METHOD 07/23/2024 1:58 PM [facility] BUN 19 5 - 25 mg/dL LAB CHEMISTRY METHOD 07/23/2024 1:58 PM [facility] Creatinine 1.17 0.70 - 1.30 mg/dL LAB CHEMISTRY METHOD 07/23/2024 1:58 PM [facility] eGFR 64 >=60 mL/min/1. 73m2 LAB CHEMISTRY METHOD 07/23/2024 1:58 PM [facility] Comment:Calculation based on the??Chronic Kidney Disease Epidemiology Collaboration (CKD-EPI) equation refit??without adjustment for race. BUN/Creatinine Ratio 16.2 LAB CHEMISTRY METHOD 07/23/2024 1:58 PM [facility] Calcium 9.1 8.5 - 10.5 mg/dL LAB CHEMISTRY METHOD 07/23/2024 1:58 PM [facility] AST (SGOT) 23 10 - 42 unit/L LAB CHEMISTRY METHOD 07/23/2024 1:58 PM [facility] ALT (SGPT) 21 10 - 60 unit/L LAB CHEMISTRY METHOD 07/23/2024 1:58 PM [facility] Alkaline Phosphatase 96 42 - 121 unit/L LAB CHEMISTRY METHOD 07/23/2024 1:58 PM [facility] Total Protein 6.9 6.0 - 8.0 g/dL LAB CHEMISTRY METHOD 07/23/2024 1:58 PM [facility] Albumin 3.1(L) 3.2 - 5.0 g/dL LAB CHEMISTRY METHOD 07/23/2024 1:58 PM [facility] Total Bilirubin 0.5 0.0 - 1.4 mg/dL LAB CHEMISTRY METHOD 07/23/2024 1:58 PM [facility] Blood Venous blood specimen / Unknown Venipuncture / Unknown 07/23/2024 8:56 AM EST 07/23/2024 10:27 AM EST us Jagjit JOHNSON LAB BLOOD ORDERABLES Final Re sult [facility] [address] [place] [address], [place] [phone] * (ABNORMAL) Complete blood count (07/23/2024 8:56 AM EST) [facility] WBC 6.5 4.8 - 10.8 K/mcL LAB HEMETOLOGY METHOD 07/23/2024 12:33 PM [facility] RBC 4.60 4.50 - 5.50 M/mcL LAB HEMETOLOGY METHOD 07/23/2024 12:33 PM [facility] Hemoglobin 12.7(L) 13.5 - 17.5 g/dL LAB HEMETOLOGY METHOD 07/23/2024 12:33 PM [facility] Hematocrit 39.8(L) 42.0 - 54.0 % LAB HEMETOLOGY METHOD 07/23/2024 12:33 PM [facility] MCV 86.3 79.0 - 98.0 FL LAB HEMETOLOGY METHOD 07/23/2024 12:33 PM [facility] MCH 27.5 27.0 - 32.0 pcg LAB HEMETOLOGY METHOD 07/23/2024 12:33 PM [facility] MCHC 31.9(L) 32.0 - 37.0 g/dL LAB HEMETOLOGY METHOD 07/23/2024 12:33 PM [facility] RDW 13.8 11.0 - 15.0 % LAB HEMETOLOGY METHOD 07/23/2024 12:33 PM [facility] Platelets 280 130 - 400 K/mcL LAB HEMETOLOGY METHOD 07/23/2024 12:33 PM [facility] MPV 9.1 7.0 - 11.0 FL LAB HEMETOLOGY METHOD 07/23/2024 12:33 PM [facility] NRBC 0.0 <1.0 % LAB HEMETOLOGY METHOD 07/23/2024 12:33 PM EST [facility] NRBC Absolute 0.00 <0.10 K/mcL LAB HEMETOLOGY METHOD 07/23/2024 12:33 PM EST [facility] Blood Venous blood specimen / Unknown Venipuncture / Unknown 07/23/2024 8:56 AM EST 07/23/2024 10:27 AM EST us Jagjit JOHNSON LAB BLOOD ORDERABLES Final Re sult [facility] [address] [place] [address], documented in this encounter Visit Diagnoses Diagnosis Hyperlipidemia, unspecified Essential (primary) hypertension Unspecified essential hypertension Anemia, unspecified Type 2 diabetes mellitus without complications (CMS/HCC V24, CMS/[facility] V28) Vitamin D deficiency, unspecified Cellulitis, unspecified documented in this encounter Additional Health Concerns Infection Onset Date Last Indicated Resolved Time C. difficile 08/02/2024 08/02/2024 08/26/2024 7:06 PM EDT C. Diff Rule-Out Infection 08/03/2024 08/02/2024 0 08/03/2024 11:45 AM EDT documented as of this encounter Care Teams Compliance Lead Relationship Specialty Start Date End Date Jagjit Hancock PA [address] [place] [phone] PCP - General Physician Scale Model Maker 07/23/24 documented as of this encounter
[2024-10-15 13:10] LABS: Appearance Urine Clear; Color Urine Dark Yellow; Glucose Urine UA Negative (Negative); Leukocyte Esterase Urine Negative (Negative); Nitrite Urine Negative (Negative); PH 6.5 (5.0-9.0); Urine Blood Negative (Negative); Urine Ketones Negative (Negative); Urine Protein Negative (Neg-Trace)
[2024-10-15 14:21] LABS: Anion Gap 15 (12-20); Blood Urea Nitrogen 22 mg/dL (9-16); Calcium 10.1 mg/dL (8.4-10.2); Carbon Dioxide 25 mmol/L (22-29); Chloride 100 mmol/L (96-108); Estimated Glomerular Filt Rate 48; Potassium 4.1 mmol/L (3.3-5.1); Sodium 136 mmol/L (135-145)
[2024-10-15 15:01] LABS: Creatinine Urine 100.18 mg/dL; Protein/Creatinine Ratio, Ur 0.08 (<0.2); Total Protein Urine Random 8 mg/dL (<12)
[2024-10-16 04:39] LABS: HBc Num1 0.09 S/CO (0.00-0.79); Hepatitis B Core Antibody Nonreactive (Nonreactive); Hepatitis B Surface Antigen Negative (Negative)
[2024-10-16 11:48] LABS: Complement C3 121 mg/dL (82-185)
[2024-10-16 23:19] LABS: Anti Glomerular Basement Memb <1.0 AI; Myeloperoxidase Antibody <1.0 AI; Proteinase 3 PR3 Antibodies <1.0 AI
[2024-10-21 08:33] LABS: IgA 449 mg/dL (70-320); IgG 1263 mg/dL (600-1540); IgM 56 mg/dL (50-300)
[2024-10-24 19:13] LABS: Phospholipase A2 IgG ELISA <4 RU/mL; Phospholipase A2 IgG IFA NEGATIVE (NEGATIVE)
== END 2024-10-15 11:23 | disposition home or self-care (01) ==
LOC: HO.HMGCX 11:22
PROVIDERS: PCP Internal Medicine; Visit Provider Internal Medicine Nephrology
DX: N17.9 Acute kidney failure, unspecified (principal)
CPT/HCPCS: 36415; 76775; 80051; 81003; 82310; 82565; 82570; 82784; 83520; 84156; 84520; 86021; 86160; 86255; 86334; 86704; 87340

== ENCOUNTER → 2024-10-15 11:25 | Outpatient (BNV) | payer MEDICARE, SELFPAY | PROVIDERS: PCP Internal Medicine; Visit Provider Radiology Diagnostic Radiology | DX: N28.89 Other specified disorders of kidney and ureter (principal) | CPT/HCPCS: 76775 ==

== ENCOUNTER 2024-10-24 11:25 | Outpatient (AMB) | payer MEDICARE, SELFPAY ==
--- NOTE | 2024-10-24 12:14 | HO.NEPHOV_ITS ---
Vital Signs 10/24/24 12:15 Height 5 ft 11 in Weight 196 lb BMI 27.3 BP 130/80 Blood Pressure Location Rt brachial Position Sitting Pulse 86 Pulse Source Pulse Oximeter Pulse Oximetry (%) 100 Oxygen Delivery Method Room Air Intake Visit Reasons: 1mon follow-up w/labs-LVM Medical Administrative Technician Required: No Accompanied by: Self / Same As Patient Allergies No Known Allergies Allergy (Verified 10/24/24 12:15) HPI Comments Details: I had the pleasure of seeing Tobin who is a 79-year old male, with diabetes mellitus since 2010 along with , dyslipidemia ,hypertension and chronic wounds in buttocks, for CKD as well as hypertension. He denies any retinopathy. He is currently on Ozempic 1 mg once a week for his diabetes mellitus. He takes metoprolol for control of his blood pressure. He does not take excess sodium in the diet. patient denied any NSAID use, no urinary symptoms. . [facility] ulcers in his buttocks. He has bipedal edema. He denied taking any recent antibiotics. He denies CAD, CVA, CHF. His serum creatinine is better [facility] Medical History (Updated 10/24/24 @ 12:32 by Waldo Padron MD) Decreased glomerular filtration rate (GFR) Elevated serum creatinine Ulcer of left heel Chronic ulcer of buttock Hx of adenomatous polyp of colon Tinea unguium Anemia Elevated vitamin B12 level Osteoarthritis of left hip Dyslipidemia Eczema Essential hypertension Type 2 diabetes mellitus without complication, without long-term current use of insulin Surgical History Hx of colonoscopy History of cataract surgery H/O shoulder replacement History of total hip replacement Family History Father Smoker Emphysema, unspecified Mother HTN (hypertension) Diabetes mellitus Cancer Brother Diabetes mellitus Social History Housing: House Are you a primary dog daycare provider to a significant other at home: No Do you presently have visiting nurse or other home services: No Alcohol intake: current Patient Tobacco Use Status: Never used Tobacco e-Cigarette/Vaping Use: Never Used service: No Current occupational status: retired Cognitive needs: No Hearing needs: No Vision needs: No Review of Systems Const All systems reviewed & are unremarkable except as noted in HPI and below Physical Exam Vital Signs: Last Vital Signs Pulse 86 10/24/24 12:15 BP 130/80 10/24/24 12:15 Pulse Ox 100 10/24/24 12:15 Oxygen Delivery Method Room Air 10/24/24 12:15 BMI result Body Mass Index 27.3 Const General: comfortable and no acute distress Orientation/consciousness: patient oriented x3 HEENT Head: Yes normocephalic Mouth: Normal oral and palatal mucosa present Eyes EOM: EOMs intact bilaterally Neck Neck: Yes supple Resp Auscultation: clear to auscultation bilaterally Cardio Jugular venous distension: no JVD Rate: regular rate GI Palpation (GI): Soft to palpation Auscultation: normal bowel sounds General: Yes no CVA tenderness Back/Spine/Pelvis Back: no CVA tenderness Skin General skin exam: no rashes or lesions noted Neuro General: patient oriented x3 and moves all extremities Results Reviewed Nephrology Results: Hgb 12.3 g/dl (14.0-18.0) L 08/29/24 WBC 6.4 X10*3/uL (4.8-10.8) 08/29/24 Plt Count 265 X10*3/uL (160-400) 08/29/24 Sodium 136 mmol/L (135-145) 10/15/24 Potassium 4.1 mmol/L (3.3-5.1) 10/15/24 Chloride 100 mmol/L (96-108) 10/15/24 Carbon Dioxide 25 mmol/L (22-29) 10/15/24 BUN 22 mg/dL (9-16) H 10/15/24 Creatinine 1.43 mg/dL (0.5-1.4) H 10/15/24 Calcium 10.1 mg/dL (8.4-10.2) 10/15/24 Urine Protein Negative mg/dL (Neg-Trace) 10/15/24 Urine Creatinine 100.18 mg/dL 10/15/24 Protein/Creatinin Ratio 0.08 (<0.2) 10/15/24 Renal US 10/15/24 Assessment & Plan Assessment & Plan (1) CKD stage 3a, GFR 45-59 ml/min: Code(s): N18.31 - Chronic kidney disease, stage 3a Category: Medical (2) Hypertension: Code(s): I10 - Essential (primary) hypertension Category: Medical Qualifiers: Hypertension type: primary hypertension Qualified Code(s): I10 - Essential (primary) hypertension (3) Renal calculi: Code(s): N20.0 - Calculus of kidney Category: Medical Plan Tobin had MILADIS likely due to tubular injury which has resolved. He most likely had been having altered autoregulation within the kidney with resultant tubular injury. I have asked him to remain off metformin and losartan for now. He is a great candidate for Jardiance which I plan to start at next visit. His renal USS showed renal calculi.He should avoid NSAID's. Answered all questions. F/U appointment given. Orders: Orders Creatinine 3 Months N18.31 - Chronic kidney disease, stage 3a Electrolytes 3 Months N18.31 - Chronic kidney disease, stage 3a Blood Urea Nitrogen 3 Months N18.31 - Chronic kidney disease, stage 3a Coding Level of Care Code Est Pt Level 4 (61238) Diagnoses CKD stage 3a, GFR 45-59 ml/min N18.31 Primary hypertension I10 Hypertension type: primary hypertension Renal calculi N20.0
[2024-10-24 12:15] VITALS: BP 130/80; PULSE 86; O2SAT 100; BMI 27.3
--- OUTSIDE RECORDS SUMMARY | 2024-10-24 12:20 | XMS_ITS | Encounter Summary ---
Author Organization [facility] Address [address] [place] [address] Care Team Providers Care Car Stower Name Role Phone Jagjit Hancock Primary Care Provider Gigi price Encounter Details Date Type Department Care Team (Latest Contact Info) Description 08/16/2024 Lab Requisition [facility] - Main Lab [address] [place] [phone] Rebecca Gomez MD [address] [place] [phone] Essential (primary) hypertension; Anemia, unspecified; Cellulitis, unspecified; [...] Comprehensive metabolic panel (08/18/2024 7:18 AM EDT) [facility] Signature Sodium 132(L) 133 - 145 [...] LAB CHEMISTRY METHOD 08/18/2024 12:46 PM EDT [facility] Alkaline Phosphatase 93 42 - 121 unit/L LAB CHEMISTRY METHOD 08/18/2024 12:46 PM EDT [facility] Total Protein 7.2 6.0 - 8.0 g/dL LAB CHEMISTRY METHOD 08/18/2024 12:46 PM [facility] LAB Albumin 3.4 3.2 - 5.0 g/dL LAB CHEMISTRY METHOD 08/18/2024 12:46 PM EDT [facility] Total Bilirubin 0.6 0.0 - 1.4 mg/dL LAB CHEMISTRY METHOD 08/18/2024 12:46 PM T [facility] Blood Venous blood specimen / Unknown Venipuncture / Unknown 08/18/2024 7:18 AM EDT 08/18/2024 11:03 AM EDT Rebecca Gomez MD LAB BLOOD ORDERABLES Final Resul t [facility] [address] [place] [address], * (ABNORMAL) Complete blood count (08/18/2024 7:18 AM EDT) WBC 7.0 4.8 - 10.8 K/mcL LAB HEMETOLOGY METHOD 08/18/2024 11:59 AM EDT [facility] RBC 4.90 4.50 - 5.50 M/mcL LAB HEMETOLOGY METHOD 08/18/2024 11:59 AM EDT [facility] Hemoglobin 14.1 13.5 - 17.5 g/dL LAB HEMETOLOGY METHOD 08/18/2024 11:59 AM T [facility] Hematocrit 41.1(L) 42.0 - 54.0 % LAB HEMETOLOGY METHOD 08/18/2024 11:59 AM EDT [facility] MCV 83.4 79.0 - 98.0 FL LAB HEMETOLOGY METHOD 08/18/2024 11:59 AM EDT [facility] MCH 28.6 27.0 - 32.0 pcg LAB HEMETOLOGY METHOD 08/18/2024 11:59 AM EDT [facility] MCHC 34.3 32.0 - 37.0 g/dL LAB HEMETOLOGY METHOD 08/18/2024 11:59 AM EDT [facility] RDW 14.2 11.0 - 15.0 % LAB HEMETOLOGY METHOD 08/18/2024 11:59 AM EDT [facility] Platelets 266 130 - 400 K/mcL LAB HEMETOLOGY METHOD 08/18/2024 11:59 AM EDT [facility] MPV 8.9 7.0 - 11.0 FL LAB HEMETOLOGY METHOD 08/18/2024 11:59 AM EDT [facility] NRBC 0.0 <1.0 % LAB HEMETOLOGY METHOD 08/18/2024 11:59 AM EDT [facility] NRBC Absolute 0.00 <0.10 K/mcL LAB HEMETOLOGY METHOD 08/18/2024 11:59 AM EDT [facility] Blood Venous blood specimen / Unknown Venipuncture / Unknown 08/18/2024 7:18 AM EDT 08/18/2024 11:03 AM EDT us Rebecca Gomez MD LAB BLOOD ORDERABLES Final Resul t [facility] [address] [place] [address], documented in this encounter Visit Diagnoses Diagnosis Essential (primary) hypertension Unspecified essential hypertension Anemia, unspecified Cellulitis, unspecified Type 2 diabetes mellitus without complications (CMS/HCC V24, CMS/HCC V28) documented in this encounter Additional Health Concerns Infection Onset Date Last Indicated Resolved Time C. difficile 08/02/2024 08/02/2024 08/26/2024 7:06 PM EDT documented as of this encounter Care Teams Car Stower Relationship Specialty Start Date End Date Jagjit Hancock PA [address] [place] [address] [place] [phone] PCP - General Physician Learning Manager 07/23/24 documented as of this encounter
== END 2024-10-24 12:36 | disposition home or self-care (01) ==
LOC: HO.HKA 11:26
PROVIDERS: PCP Internal Medicine; Visit Provider Internal Medicine Nephrology
DX: N18.31 Chronic kidney disease, stage 3a (principal); I10 Essential (primary) hypertension; N20.0 Calculus of kidney
CPT/HCPCS: 99214

== ENCOUNTER → 2024-10-24 11:25 | Outpatient (BNVA) | payer MEDICARE, SELFPAY | PROVIDERS: PCP Internal Medicine; Visit Provider Internal Medicine Nephrology | DX: I12.9 Hypertensive chronic kidney disease with stage 1 through stage 4 chronic kidney disease, or unspecified chronic kidney disease (principal); N18.31 Chronic kidney disease, stage 3a; N20.0 Calculus of kidney | CPT/HCPCS: 99212 ==

== ENCOUNTER 2024-12-06 08:41 | Outpatient (REF) | payer MEDICARE, SELFPAY ==
--- OUTSIDE RECORDS SUMMARY | 2024-12-06 08:43 | XMS_ITS | Patient Health Record ---
Author Organization [facility] Address [address] [place] [phone] Care Team Providers Care Independent Sales Representative Name Role Phone Marina MCDANIELS, Nubia Primary Care Provider Daryn Brito Jr Unavailable [phone] Allergies No Known Allergies Reason For Referral [...] Problem Status W/U Status Risk Notes Problem 383999659 Colon cancer screening (Z12.11) Active confirmed Problem 355102582 alf (current) use of aspirin (Z79.82) Active confirmed Problem 104550818818248 Aspirin long-term use (Z79.82) Active confirmed Problem 97410469 Iron deficiency anemia, unspecified iron deficiency anemia type (D50.9) Active confirmed Vital Signs Blood pressure diastolic 11 mm Hg 09/11/2024 Height 72 in 09/11/2024 Blood pressure systolic 111 mm Hg 09/11/2024 Weight 193 lbs 09/11/2024 BMI 26.17 kg/m2 09/11/2024 Encounters Encounter Location Date Provider Diagnosis [facility] [address] [place] [address] 09/11/2024 Daryn Pimentel Jr Colon cancer screening Z12.11 and Aspirin long-term use Z79.[facility] [address] [place] [address] 05/30/2024 Daryn Pimentel Jr Assessments Encounter Date [...] OF [place] [address] [place] [address] [id number] JULIO CREUBEN NIELSON Self - patient is the insured 2 [employer] [address] [place] [id number] DANDREREUBEN Self - patient is the insured [...]
--- OUTSIDE RECORDS SUMMARY | 2024-12-06 08:44 | XMS_ITS | Patient Health Record ---
Author Organization [facility] Address [address] [facility] [place] [address] Care Team Providers Care Rotor Plate Washer Name Role Phone Marina MCDANIELS, Nubia Zelaya Primary Care Provider Un available Black, Sussy Unavailable [phone] Allergies No Known Allergies Results Component Value [...] and calloused lesions; Duration: . 12/17/2014 Not-Taking Ammonium Lactate 12 % 1 application Externally Twice a day; Duration: 30 days Not-Taking CeleBREX 200 MG Orally Not- Taking Ciclopirox Olamine 0.77 % 1 application Externally Twice a day; Duration: 30 days 08/25/2021 Not-Taking Januvia 50 MG [...] to skin, even between toes, twice a day; Duration: 30 days Active Ciclopirox Olamine 0.77 % 1 application to affected area Externally Twice a day; Duration: 30 days 09/10/2024 Active Trulicity 0.75 MG/0.5ML as directed Subcutaneous Not-Taking Ciclopirox Olamine 0.77 % 1 application Externally Twice a day; Duration: 30 days 09/18/2019 Not-Taking Iron 325 (65 Fe) MG 1 tablet Orally Once a day Active Extra Depth Orthopedic Shoes (1 Pair) with Customized Heat Molded Multidensity Innersoles (3 Pair) as directed Dx: NIDDM/Polyneuropathy (E11.42), Hammertoe Foot Deformity (M20.41,M20.42), Preulcerative Skin Lesion(s) (L85.1 01/11/2017 Not-Taking Spironolactone Activ e Cipro 500 MG 1 tablet Orally ever y 12 hrs; Duration: 10 day(s) 12/22/2019 Not-Taking hydroCHLOROthiazide Active Cipro 500 MG 1 tablet Orally ever y 12 hrs; Duration: 10 day(s) 01/19/2020 Not-Taking Metoprolol & Diet Manage Prod Active Bactrim DS 800-160 MG 1 tablet Orally Tw ice a day; Duration: 10 day(s) 12/18/2019 Not-Taking hydrALAZINE HCl 75mg 1 tablet Orally 3 times a day Active sAXagliptin HCl Not- Taking Naproxen 500 MG 1 tablet as needed Orally every 12 hrs Active Bactrim DS 800-160 MG 1 tablet Orally Tw ice a day; Duration: 10 day(s) 03/19/2020 Not-Taking Losartan Potassium A ctive traMADol HCl Not-Erick ing metFORMIN HCl Active Alogliptin Benzoate 25 MG Orally Not-Taking Ozempic Active Rosuvastatin Calcium Active Tacrolimus 0.1 % 1 application Externally Once a day Active Mupirocin 2 % 1 application Externally Once a day; Duration: 30 days 11/24/2021 Not-Taking Immunizations Vaccine Route [...] Problem Status W/U Status Risk Notes Problem Information temporarily unavailable Other hammer toe(s) (acquired), right foot (M20.41) Active confirmed Problem Information temporarily unavailable Other hammer toe(s) (acquired), left foot (M20.42) Active confirmed Problem Information temporarily unavailable Non-pressure chronic ulcer of other part of left foot limited to breakdown of skin (L97.521) Active confirmed Problem Information temporarily unavailable 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) Active confirmed Problem Information temporarily unavailable 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) Active confirmed Problem Information temporarily unavailable Type 2 diabetes mellitus with diabetic polyneuropathy (E11.42) Active confirmed Problem Information temporarily unavailable Neuropathic ulcer of right heel, limited to breakdown of skin (L97.411) Active confirmed Response to treatment Vital Signs Blood pressure diastolic 78 mm Hg 09/01/2024 Height 6 ft in 09/01/2024 Blood pressure systolic 121 mm Hg 09/01/2024 Weight 212 lbs 09/01/2024 BMI 28.75 kg/m2 09/01/2024 Procedures Procedure Date Ordered Date Performed Result Body Sit e 96276-PVDGJPY NAIL, 6 OR MORE 02/14/2024 N/A 73322- Debride <25 sq cm 02/14/2024 N/A 29928-SOVZ SKIN LESIONS, OVER 4 02/14/2024 N/A 69180-HQGVASV NAIL, 6 OR MORE 06/02/2024 N/A 98026-XQNC SKIN LESIONS, OVER 4 06/02/2024 N/A 59404-ZVZNIWD NAIL, 6 OR MORE 09/01/2024 N/A 87135-VQPV SKIN LESIONS, OVER 4 09/01/2024 N/A Encounters Encounter Location Date Provider Diagnosis [address] [address] 02/14/2024 Sussy Lowery 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 ; Other hammer toe(s) (acquired), right foot M20.41 ; Type 2 diabetes mellitus with diabetic polyneuropathy E11.42 ; Tinea unguium B35.1 and Other hammer toe(s) (acquired), left foot M20.[address] [address] 06/02/2024 Sussy Lowery Type 2 diabetes mellitus with diabetic polyneuropathy E11.42 and Tinea unguium B35.[address] [address] 09/01/2024 Sussycharlene Lowery Type 2 diabetes mellitus with diabetic polyneuropathy E11.42 ; Tinea unguium B35.1 and Tinea pedis of both feet B35.[address] [address] 06/03/2024 Sussy Lowery [address] [address] 08/26/2024 Sussyjesus Lowery [address] [address] 09/10/2024 Sussy Lowery Assessments Encounter Date Diagnosis (ICD Code) Assessment Notes Treatment Notes Treatment Clinical Notes Section Notes 02/14/2024 Other hammer toe(s) (acquired), right foot [...] E11.42) 02/14/2024 Tinea unguium (ICD-10 - B35.1) 09/01/2024 Tinea pedis of both feet (ICD-10 - B35.3) 02/14/2024 Other hammer toe(s) (acquired), left foot (ICD-10 - M20.42) 06/02/2024 Other Plan Of Treatment Pending Test Test Name Order Date *Wound Culture 12/18/2019 *Wound Culture 11/24/2021 29747-KHWUSVT NAIL, 6 OR MORE 08/25/2021 75534-USAMZZB NAIL, 6 OR MORE 12/18/2019 14033-BHYHURJ NAIL, 6 OR MORE 11/24/2021 06780-FRLPUES NAIL, 6 OR MORE 02/23/2022 73364-VEGRMXH NAIL, 6 OR MORE 06/08/2022 32526-PPUNVAY NAIL, 6 OR MORE 09/11/2022 77362-HOHDTFT NAIL, 6 OR MORE 12/11/2022 37242-FNNRBSI NAIL, 6 OR MORE 09/18/2019 46256-PPRPYWJ NAIL, 6 OR MORE 02/23/2020 52884-OOJHDWK NAIL, 6 OR MORE 05/13/2020 15398-WRIQHJE NAIL, 6 OR MORE 08/12/2020 20794-PPJOYTR NAIL, 6 OR MORE 11/18/2020 16094-HKGSJVO NAIL, 6 OR MORE 02/17/2021 89502-ZZYKJPC NAIL, 6 OR MORE 03/15/2023 98660-JFLSJDV NAIL, 6 OR MORE 06/21/2023 34430-AAAXGMS NAIL, 6 OR MORE 10/25/2023 28107-KKMSGUL NAIL, 6 OR MORE 02/14/2024 02265-IRJEFIO NAIL, 6 OR MORE 06/02/2024 40073-DSICRLD NAIL, 6 OR MORE 09/01/2024 27373-MVMYUCL NAIL, 6 OR MORE 03/06/2019 24653-MMUCGIH NAIL, 6 OR MORE 06/05/2019 97876-AUVRILV NAIL, 6 OR MORE 02/21/2018 96905-USYPNOC NAIL, 6 OR MORE 05/30/2018 23423-FPZQFHQ NAIL, 6 OR MORE 08/29/2018 16890-QVYIFTY NAIL, 6 OR MORE 12/05/2018 37160-OJGNSHB NAIL, 6 OR MORE 12/22/2015 19918-DKCKUUK NAIL, 6 OR MORE 03/23/2016 12775-FBBZMUM NAIL, 6 OR MORE 06/22/2016 27364-OWGGWYH NAIL, 6 OR MORE 10/05/2016 24846-PXNGYQT NAIL, 6 OR MORE 01/04/2017 36234-ALAJSXW NAIL, 6 OR MORE 05/10/2017 72109-YRFOMBA NAIL, 6 OR MORE 08/09/2017 26541-KKMYSQB NAIL, 6 OR MORE 11/23/2017 69098-KUKKVGT NAIL, 6 OR MORE 04/17/2011 33072-LEOFTWH NAIL, 6 OR MORE 07/20/2011 02745-DCDSXGU NAIL, 6 OR MORE 08/17/2011 27601-IOJHXCY NAIL, 6 OR MORE 09/19/2011 18020-TAZWJQR NAIL, 6 OR MORE 12/25/2011 14268-UECPEED NAIL, 6 OR MORE 03/13/2012 38084-FBTFOAD NAIL, 6 OR MORE 06/19/2012 74209-YFEZOMS NAIL, 6 OR MORE 09/16/2012 55341-HMTKESE NAIL, 6 OR MORE 12/04/2012 31723-JFFLFEH NAIL, 6 OR MORE 03/12/2013 94779-WXGIGLG NAIL, 6 OR MORE 06/18/2013 51665-QIHWDRQ NAIL, 6 OR MORE 09/18/2013 02313-FVYNOZX NAIL, 6 OR MORE 12/18/2013 52180-CFEWOOW NAIL, 6 OR MORE 03/19/2014 66065-ENXKAQW NAIL, 6 OR MORE 09/17/2014 58547-UBQMIYD NAIL, 6 OR MORE 12/17/2014 39628-RGWMQQF NAIL, 6 OR MORE 06/18/2014 72166-CLLJFKW NAIL, 6 OR MORE 03/24/2015 28593-OBYRAGS NAIL, 6 OR MORE 06/17/2015 00709-KBKNZHF NAIL, 6 OR MORE 09/16/2015 25968-Qlalcgjn Plate 06/18/2014 68956-Qehnhnxg Plate 12/17/2014 52259-Elfsvqfy Plate 12/18/2013 15962-Nodtpegz Plate 09/18/2013 34644-Rccrocyp Plate 03/12/2013 83250-Fmnuxxdh Plate 01/04/2017 96422-Jsotnxth Plate 06/21/2023 50281- Debride <25 sq cm 02/14/2024 29827- Debride <25 sq cm 08/25/2021 43536- Debride <25 sq cm 08/12/2020 32040- Debride <25 sq cm 04/05/2020 66162- Debride <25 sq cm 05/13/2020 55573- Debride <25 sq cm 02/23/2020 91188- Debride <25 sq cm 06/08/2022 52927- Debride <25 sq cm 11/24/2021 88581- Debride <25 sq cm 12/08/2021 38130- Debride <25 sq cm 01/05/2022 11896- Debride <25 sq cm 02/23/2022 41919- Debride <25 sq cm 12/04/2012 76957- Debride <25 sq cm 12/25/2011 55067- Debride <25 sq cm 09/19/2011 39137- Debride <25 sq cm 08/17/2011 00847- Debride <25 sq cm 07/20/2011 58689- Debride <25 sq cm 12/18/2013 62988- Debride <25 sq cm 03/19/2014 17411-AIJJTEY SKIN/TISSUE 12/18/2019 20419-QTSYHQS SKIN/TISSUE 01/05/2020 55148-TWFMAUW SKIN/TISSUE 01/19/2020 08667-AHXFWWC SKIN/TISSUE 02/05/2020 79830-LOPS SKIN LESIONS, OVER 4 09/18/19 20 37709-ECMS SKIN LESIONS, OVER 4 06/05/19 20 11615-WVIW SKIN LESIONS, OVER 4 03/06/20 53361-AXUZ SKIN LESIONS, OVER 4 12/06/19 72488-XYRQ SKIN LESIONS, OVER 4 08/30/19 62007-LTFS SKIN LESIONS, OVER 4 05/30/19 41242-LUVT SKIN LESIONS, OVER 4 01/05/20 28846-RSOS SKIN LESIONS, OVER 4 02/22/20 12820-CJZJ SKIN LESIONS, OVER 4 11/24/19 53848-UXTM SKIN LESIONS, OVER 4 05/10/20 30036-OWSK SKIN LESIONS, OVER 4 08/10/19 18983-SKSI SKIN LESIONS, OVER 4 02/24/20 29931-YAPP SKIN LESIONS, OVER 4 11/25/19 94117-LUFX SKIN LESIONS, OVER 4 06/08/19 39474-NVHP SKIN LESIONS, OVER 4 09/12/19 79821-EAOB SKIN LESIONS, OVER 4 03/15/20 08632-ZMIZ SKIN LESIONS, OVER 4 12/12/19 85936-YEUI SKIN LESIONS, OVER 4 02/23/20 66888-WUXN SKIN LESIONS, OVER 4 12/18/19 65721-HYIZ SKIN LESIONS, OVER 4 05/13/20 11873-QSHD SKIN LESIONS, OVER 4 08/13/19 40415-ZKER SKIN LESIONS, OVER 4 11/19/19 77037-FFPP SKIN LESIONS, OVER 4 08/26/19 32736-VKEX SKIN LESIONS, OVER 4 02/18/20 90200-RGGW SKIN LESIONS, OVER 4 02/14/20 75141-XUUB SKIN LESIONS, OVER 4 06/02/19 51373-OTZS SKIN LESIONS, OVER 4 06/21/19 12770-EHSM SKIN LESIONS, OVER 4 10/25/19 39172-KBHQ SKIN LESIONS, OVER 4 09/02/19 86630-EKEG SKIN LESIONS, 2 TO 4 06/22/19 17145-EVCC SKIN LESIONS, 2 TO 4 10/06/19 04185-MASV SKIN LESIONS, 2 TO 4 03/23/20 16 46556-UQSC SKIN LESIONS, 2 TO 4 12/22/19 16 92421-NSPF SKIN LESIONS, 2 TO 4 12/18/19 15 07513-KMCN SKIN LESIONS, 2 TO 4 10/28/20 15 05048-YAFQ SKIN LESIONS, 2 TO 4 09/16/19 16 88619-JSSG SKIN LESIONS, 2 TO 4 06/17/19 16 Next Appt Details Provider Name:Sussy Lowery , 12/11/2024 03:00:00 PM, [address] [place], [address], Insurance Providers Payer Name Payer Address Payer Phone Subscriber Number Group Number Insured Name Patient Relationship to Insured Coverage Start Date Coverage End Date Medicare National Govt [facility] [address] [place] [address] [id number] Tobin Bey Self - patient is the insured A[employer] Secondary to Medicare [address] [place] [address] [id number] Tobin Bey Self - patient is the insured Medical (General) History Medical History History ICD Code reflux mumps measles chicken pox hypertension diabetes mellitus Macular degeneration Surgical History Surgery Date(Month/Year) cataract removal left total hip replacement 02/23/2015 R shoulder replacement 03/27/2017 Hospitalization History Reason Date(Month/Year) leg infection 08/19
[2024-12-06 11:26] LABS: MANUAL DIFF FLAG NO
[2024-12-06 11:32] LABS: Hematocrit 42.3 % (42.0-52.0); Hemoglobin 14.1 g/dl (14.0-18.0); Imm Gran Abs Auto 0.04 X10*3/uL (0.00-0.03); Imm Gran Pct Auto 0.7 % (0.0-0.4); Lymphocytes Absolute Auto 0.8 X10*3/uL (1.2-4.9); Mean Corpuscular HGB Conc 33.3 g/dl (31.0-36.0); Mean Corpuscular Hemoglobin 29.0 pg (27.0-33.0); Mean Corpuscular Volume 87.0 fL (80.0-98.0); NRBC Abs Auto 0.000 X10*3/uL (0.0-0.012); NRBC Pct Auto 0.0 /100WBC (0.0-0.2); Platelet Count 206 X10*3/uL (160-400); Red Blood Count 4.86 X10*6/uL (4.60-5.80); White Blood Count 6.0 X10*3/uL (4.8-10.8)
[2024-12-06 11:45] LABS: Hemoglobin A1C 143.0124 umol/L; Total Hemoglobin (HGBA1C) 3722.9294 umol/L
[2024-12-06 11:55] LABS: Alanine Aminotransferase 9 U/L (0-40); Anion Gap 14 (12-20); Aspartate Amino Transferase 24 U/L (5-37); Blood Urea Nitrogen 26 mg/dL (9-16); Calcium 9.7 mg/dL (8.4-10.2); Carbon Dioxide 28 mmol/L (22-29); Chloride 99 mmol/L (96-108); Cholesterol 126 mg/dL (<200); Estimated Glomerular Filt Rate 51; HDL Cholesterol 49 mg/dL (>40); Iron 47 mcg/dL (45-160); Percent Iron Saturation 18 % (15-50); Potassium 3.3 mmol/L (3.3-5.1); Sodium 138 mmol/L (135-145); Total Iron Binding Capacity 264 mcg/dL (228-428); Triglycerides 75 mg/dL (<150); Unsaturated Iron Binding 217 ug/dL
== END 2024-12-06 08:42 | disposition home or self-care (01) ==
LOC: HO.HMGCLDS 08:41
PROVIDERS: PCP Internal Medicine; Visit Provider Internal Medicine
DX: E11.9 Type 2 diabetes mellitus without complications (principal); I10 Essential (primary) hypertension; E78.5 Hyperlipidemia, unspecified; R94.4 Abnormal results of kidney function studies; R79.89 Other specified abnormal findings of blood chemistry
CPT/HCPCS: 36415; 80048; 80061; 83036; 83540; 84450; 84460; 85025

== ENCOUNTER 2025-01-05 12:48 | Outpatient (AMB) | payer MEDICARE, SELFPAY ==
--- OUTSIDE RECORDS SUMMARY | 2025-01-05 12:52 | XMS_ITS | Encounter Summary ---
Author Organization [facility] Address [address] [place] [address] Care Team Providers Care Tiedown Operator Name Role Phone Jagjit Hancock Primary Care Provider Gigi price Encounter Details Date Type Department Care Team (Latest Contact Info) Description 08/16/2024 Lab Requisition [facility] - Main Lab [address] [place] [phone] Rebecca Gomez MD [address] [place] [phone] Essential (primary) hypertension; Anemia, unspecified; Cellulitis, unspecified; [...] Comprehensive metabolic panel (08/18/2024 7:18 AM EDT) [facility] Sodium 132(L) 133 - 145 mmol/L LAB CHEMISTRY METHOD 08/18/2024 12:46 PM [facility] Potassium 4.4 3.5 - 5.5 mmol/L LAB CHEMISTRY METHOD 08/18/2024 12:46 PM [facility] Chloride 95(L) 96 - 110 mmol/L LAB CHEMISTRY METHOD 08/18/2024 12:46 PM [facility] CO2 27 21 - 32 mmol/L LAB CHEMISTRY METHOD 08/18/2024 12:46 PM [facility] Anion Gap 10 3 - 11 LAB CHEMISTRY METHOD 08/18/2024 12:46 PM [facility] Glucose 88 70 - 100 mg/dL LAB CHEMISTRY METHOD 08/18/2024 12:46 PM [facility] BUN 34(H) 5 - 25 mg/dL LAB CHEMISTRY METHOD 08/18/2024 12:46 PM [facility] Creatinine 1.19 0.70 - 1.30 mg/dL LAB CHEMISTRY METHOD 08/18/2024 12:46 PM [facility] eGFR 63 >=60 mL/min/1. 73m2 LAB CHEMISTRY METHOD 08/18/2024 12:46 PM [facility] Comment:Calculation based on the Chronic Kidney Disease Epidemiology Collaboration (CKD-EPI) equation refit without adjustment for race. BUN/Creatinine Ratio 28.6 LAB CHEMISTRY METHOD 08/18/2024 12:46 PM [facility] Calcium 9.7 8.5 - 10.5 mg/dL LAB CHEMISTRY METHOD 08/18/2024 12:46 PM [facility] AST (SGOT) 30 10 - 42 unit/L LAB CHEMISTRY METHOD 08/18/2024 12:46 PM [facility] ALT (SGPT) 34 10 - 60 unit/L LAB CHEMISTRY METHOD 08/18/2024 12:46 PM EDT [facility] Alkaline Phosphatase 93 42 - 121 unit/L LAB CHEMISTRY METHOD 08/18/2024 12:46 PM EDT [facility] Total Protein 7.2 6.0 - 8.0 g/dL LAB CHEMISTRY METHOD 08/18/2024 12:46 PM [facility] Albumin 3.4 3.2 - 5.0 g/dL LAB CHEMISTRY METHOD 08/18/2024 12:46 PM EDT [facility] Total Bilirubin 0.6 0.0 - 1.4 mg/dL LAB CHEMISTRY METHOD 08/18/2024 12:46 PM EDT [facility] Blood Venous blood specimen / Unknown Venipuncture / Unknown 08/18/2024 7:18 AM EDT 08/18/2024 11:03 AM EDT Rebecca Gomez MD LAB BLOOD ORDERABLES Final Resul t [facility] [address] [place] [address], [place] [phone] * (ABNORMAL) Complete blood count (08/18/2024 7:18 AM EDT) WBC 7.0 4.8 - 10.8 K/mcL LAB HEMETOLOGY METHOD 08/18/2024 11:59 AM EDT [facility] RBC 4.90 4.50 - 5.50 M/mcL LAB HEMETOLOGY METHOD 08/18/2024 11:59 AM EDT [facility] Hemoglobin 14.1 13.5 - 17.5 g/dL LAB HEMETOLOGY METHOD 08/18/2024 11:59 AM T [facility] Hematocrit 41.1(L) 42.0 - 54.0 % LAB HEMETOLOGY METHOD 08/18/2024 11:59 AM EDT [facility] MCV 83.4 79.0 - 98.0 FL LAB HEMETOLOGY METHOD 08/18/2024 11:59 AM EDT [facility] MCH 28.6 27.0 - 32.0 pcg LAB HEMETOLOGY METHOD 08/18/2024 11:59 AM EDT [facility] MCHC 34.3 32.0 - 37.0 g/dL LAB HEMETOLOGY METHOD 08/18/2024 11:59 AM EDT [facility] RDW 14.2 11.0 - 15.0 % LAB HEMETOLOGY METHOD 08/18/2024 11:59 AM EDT [facility] Platelets 266 130 - 400 K/mcL LAB HEMETOLOGY METHOD 08/18/2024 11:59 AM EDT [facility] MPV 8.9 7.0 - 11.0 FL LAB HEMETOLOGY METHOD 08/18/2024 11:59 AM EDT [facility] NRBC 0.0 <1.0 % LAB HEMETOLOGY METHOD 08/18/2024 11:59 AM T [facility] NRBC Absolute 0.00 <0.10 K/mcL LAB HEMETOLOGY METHOD 08/18/2024 11:59 AM [facility] Blood Venous blood specimen / Unknown Venipuncture / Unknown 08/18/2024 7:18 AM EDT 08/18/2024 11:03 AM EDT us Rebecca Gomez MD LAB BLOOD ORDERABLES Final Resul t [facility] [address] [place] [address], documented in this encounter Visit Diagnoses Diagnosis Essential (primary) hypertension Unspecified essential hypertension Anemia, unspecified Cellulitis, unspecified Type 2 diabetes mellitus without complications (CMS/HCC V24, CMS/HCC V28) documented in this encounter Additional Health Concerns Infection Onset Date Last Indicated Resolved Time C. difficile 08/02/2024 08/02/2024 08/26/2024 7:06 PM EDT documented as of this encounter Care Teams Tiedown Operator Relationship Specialty Start Date End Date Jagjit Hancock PA [address] [place] [address] [place] [phone] PCP - General Physician Justowriter Operator 07/23/24 documented as of this encounter
--- OUTSIDE RECORDS SUMMARY | 2025-01-05 12:53 | XMS_ITS | Patient Health Record ---
[facility] Address [address] [place] [address] Care Team Providers Care Windmill Technician Name Role Phone Marina MCDANIELS, Nubia Zelaya Primary Care Provider Un available Black, Sussy Unavailable [phone] Allergies No Known Allergies Results Component Value Reference Range Notes HEMOGLOBIN A1C (GLYCOHEMOGLO BIN) Reviewed date:06/02/2024 03:54:41 PM Interpretation: Performing Lab: Notes/Report: HEMOGLOBIN A1C % (HH) 5.8 HEMOGLOBIN A1C (GLYCOHEMOGLO BIN) Reviewed date:09/01/2024 01:04:59 PM Interpretation: Performing Lab: Notes/Report: HEMOGLOBIN A1C % (HH) 6.0 Reason For Referral No Information Medications Medication SIG (Take, Route, Frequency, Duration) Notes Start Date End Date Status Metoprolol & Diet Manage Prod Active Rosuvastatin Calcium Active Ciclopirox Olamine 0.77 % 1 application [...] Twice a day; Duration: 30 days Not-Taking Bactrim DS 800-160 MG 1 tablet Orally Tw ice a day; Duration: 10 day(s) 12/18/2019 Not-Taking Cipro 500 MG 1 tablet Orally ever y 12 hrs; Duration: 10 day(s) 12/22/2019 Not-Taking Cipro 500 MG 1 tablet Orally ever y 12 hrs; Duration: 10 day(s) 01/19/2020 Not-Taking Extra-Depth Diabetic Shoes with 3 Pair Custom heat-molded multi-density innersoles Not-Taking Extra Depth Orthopedic Shoes (1 Pair) with Customized Heat Molded Multidensity Innersoles (3 Pair) as directed Dx: NIDDM/Polyneuropathy (E11.42), Hammertoe Foot Deformity (M20.41,M20.42), Preulcerative Skin Lesion(s) (L85.1 01/11/2017 Not-Taking Ciclopirox Olamine 0.77 % 1 application Externally Twice a day; Duration: 30 days 08/25/2021 Not-Taking OxyCONTIN Not-Taking Extra Depth Orthopedic Shoes (1 Pair) with Customized Heat Molded Multidensity Innersoles (3 Pair) as directed Dx: NIDDM/Polyneuropathy (E11.42), Hammertoe Foot Deformity (M20.41,M20.42), Preulcerative Skin Lesion(s) (L85.1 08/25/2021 Not-Taking Ciclopirox Olamine 0.77% external Apply to effected areas twice a day; Duration: 30 days 12/18/2013 Not-Taking hydrALAZINE HCl 75mg 1 tablet Orally 3 times a day Not-Taking CeleBREX 200 MG Orally Not- Taking Naproxen 500 MG 1 tablet as needed Orally every 12 hrs Not-Taking Januvia 50 MG 1 tablet Orally Once a day Not-Taking Losartan Potassium N ot-Taking metFORMIN HCl Not-Ta greg Extra-Depth Diabetic Shoes with 3 Pair Custom heat-molded multi-density innersoles . for 1 year . Dx:hammerotes and calloused lesions; Duration: . 12/17/2014 Not-Taking Tacrolimus 0.1 % 1 application Externally Once a day Not-Taking Mupirocin 2 % External; Duration: 30 Days Active Ozempic Active Ciclopirox Olamine 0.77 % 1 application to affected area Externally Twice a day; Duration: 30 days 09/10/2024 Active Naftifine HCl 2 % 1 application Externally Apply a thin layer to skin, even between toes, twice a day; Duration: 30 days Active Extra Depth Orthopedic Shoes (1 Pair) with Customized Heat Molded Multidensity Innersoles (3 Pair) as directed Dx: NIDDM/Polyneuropathy (E11.42), Hammertoe Foot Deformity (M20.41,M20.42), Preulcerative Skin Lesion(s) (L85.1 12/22/2015 Not-Taking Extra Depth Orthopedic Shoes (1 Pair) with Customized Heat Molded Multidensity Innersoles (3 Pair) as directed Dx: NIDDM/Polyneuropathy (E11.42), Hammertoe Foot Deformity (M20.41,M20.42), Preulcerative Skin Lesion(s) (L85.1 03/06/2019 Not-Taking Extra Depth Orthopedic Shoes (1 Pair) with Customized Heat Molded Multidensity Innersoles (3 Pair) as directed Dx: NIDDM/Polyneuropathy (E11.42), Hammertoe Foot Deformity (M20.41,M20.42), Preulcerative Skin Lesion(s) (L85.1 02/21/2018 Not-Taking Mupirocin 2 % 1 application Externally Once a day; Duration: 30 days 11/24/2021 Not-Taking Bactrim DS 800-160 MG 1 tablet Orally Tw ice a day; Duration: 10 day(s) 11/24/2021 Not-Taking Betadine 10 % Apply a light layer to affected area on foot as needed Externally 3 time(s) a day; Duration: 10 days 11/19/2023 Active Trulicity 0.75 MG/0.5ML as directed Subcutaneous Not-Taking Extra Depth Orthopedic Shoes (1 Pair) with Customized Heat Molded Multidensity Innersoles (3 Pair) as directed Dx: NIDDM/Polyneuropathy (E11.42), Hammertoe Foot Deformity (M20.41,M20.42), Preulcerative Skin Lesion(s) (L85.1 10/25/2023 Active Ciclopirox Olamine 0.77 % 1 application Externally Twice a day; Duration: 30 days 09/18/2019 Not-Taking Iron 325 (65 Fe) MG 1 tablet Orally Once a day Active traMADol HCl Not-Erick ing Spironolactone Activ e Alogliptin Benzoate 25 MG Orally Not-Taking hydroCHLOROthiazide Active sAXagliptin HCl Not- Taking Bactrim DS 800-160 MG 1 tablet Orally Tw ice a day; Duration: 10 day(s) 03/19/2020 Not-Taking Immunizations Vaccine Route Administration Date Status Comme nts Influenza Unknown 03/23/2016 Pending Influenza Unknown 02/12/2017 Administered Influenza Unknown 03/28/2018 Administered Influenza Unknown 03/28/2019 Administered Influenza Unknown 02/11/2020 Administered Influenza Unknown 06/28/2022 Administered Influenza Unknown 01/27/2024 Administered COVID-19 Moderna Vaccine Unknown 11/18/2020 Administere d 1st dose 08/14/2020 Social History Tobacco Use: Social History Observation [...] Problem Status W/U Status Risk Notes Problem Polyneuropathy due to type 2 diabetes mellitus (986799836) Type 2 diabetes mellitus with diabetic polyneuropathy (E11.42) Active confirmed Vital Signs Blood pressure diastolic 80 mm Hg 12/11/2024 Height 6 ft in 12/11/2024 Blood pressure systolic 122 mm Hg 12/11/2024 Weight 215 lbs 12/11/2024 BMI 29.16 kg/m2 12/11/2024 Procedures Procedure Date Ordered Date Performed Result Body Sit e 80505-OIZRHIP NAIL, 6 OR MORE 02/14/2024 N/A 37143- Debride <25 sq cm 02/14/2024 N/A 18097-PXEO SKIN LESIONS, OVER 4 02/14/2024 N/A 28402-DTJCCXR NAIL, 6 OR MORE 06/02/2024 N/A 11531-OXOB SKIN LESIONS, OVER 4 06/02/2024 N/A 65830-RWVDFXC NAIL, 6 OR MORE 09/01/2024 N/A 28422-CGWM SKIN LESIONS, OVER 4 09/01/2024 N/A 08944-FEUATDA NAIL, 6 OR MORE 12/11/2024 N/A 91602-JMYI SKIN LESIONS, OVER 4 12/11/2024 N/A Encounters Encounter Location Date Provider Diagnosis [address] [address] 02/14/2024 Sussy Lowery 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 ; Other hammer toe(s) (acquired), right foot M20.41 ; Type 2 diabetes mellitus with diabetic polyneuropathy E11.42 ; Tinea unguium B35.1 and Other hammer toe(s) (acquired), left foot M20.[address] [address] 06/02/2024 Sussy Lowery Type 2 diabetes mellitus with diabetic polyneuropathy E11.42 and Tinea unguium B35.[address] [address] 09/01/2024 Sussy Lowery Type 2 diabetes mellitus with diabetic polyneuropathy E11.42 ; Tinea unguium B35.1 and Tinea pedis of both feet B35.[address] [address] 12/11/2024 Sussy Lowery Type 2 diabetes mellitus with diabetic polyneuropathy E11.42 and Tinea unguium B35.[address] [address] 06/03/2024 Sussyjesus Lowery [address] [address] 08/26/2024 Sussyjesus Lowery [address] [address] 09/10/2024 Sussy Lowery Assessments Encounter Date Diagnosis [...] mellitus with diabetic polyneuropathy (ICD-10 - E11.42) 12/11/2024 Tinea unguium (ICD-10 - B35.1) 12/11/2024 Type 2 diabetes mellitus with diabetic polyneuropathy [...] Date *Wound Culture 12/18/2019 *Wound Culture 11/24/2021 85277-NJIXXQS NAIL, 6 OR MORE 08/25/2021 36107-SYVQDOM NAIL, 6 OR MORE 12/18/2019 21486-NWKFUBT NAIL, 6 OR MORE 11/24/2021 61701-MULMGFY NAIL, 6 OR MORE 02/23/2022 08251-ICMWXAX NAIL, 6 OR MORE 06/08/2022 81822-OQOTGRT NAIL, 6 OR MORE 09/11/2022 60904-GWOGXIL NAIL, 6 OR MORE 12/11/2022 11472-SMFOATZ NAIL, 6 OR MORE 09/18/2019 59546-PAUKAQF NAIL, 6 OR MORE 02/23/2020 45811-PKCPQXL NAIL, 6 OR MORE 05/13/2020 03299-FCHPSXV NAIL, 6 OR MORE 08/12/2020 45305-FJXXRZX NAIL, 6 OR MORE 11/18/2020 28491-JDCEKSM NAIL, 6 OR MORE 02/17/2021 02922-ACYESIE NAIL, 6 OR MORE 03/15/2023 82585-EURDTRT NAIL, 6 OR MORE 06/21/2023 66178-NMFNUAF NAIL, 6 OR MORE 10/25/2023 05493-PHWYSXF NAIL, 6 OR MORE 02/14/2024 00314-HYOZEIG NAIL, 6 OR MORE 06/02/2024 26496-XGTDUYA NAIL, 6 OR MORE 09/01/2024 49728-GPHAODB NAIL, 6 OR MORE 12/11/2024 60285-PMYEYYT NAIL, 6 OR MORE 03/06/2019 67648-HWXVGTM NAIL, 6 OR MORE 06/05/2019 17579-JTRXHMW NAIL, 6 OR MORE 02/21/2018 31379-AODDADZ NAIL, 6 OR MORE 05/30/2018 81930-SEGOXOO NAIL, 6 OR MORE 08/29/2018 94111-RGBAJWC NAIL, 6 OR MORE 12/05/2018 83601-ROXGVXF NAIL, 6 OR MORE 12/22/2015 49107-XFQPWPG NAIL, 6 OR MORE 03/23/2016 90179-WVGCSQZ NAIL, 6 OR MORE 06/22/2016 86455-KLRFMIG NAIL, 6 OR MORE 10/05/2016 72515-GNXCEJZ NAIL, 6 OR MORE 01/04/2017 54827-MLKGAZT NAIL, 6 OR MORE 05/10/2017 17985-LPRJLAS NAIL, 6 OR MORE 08/09/2017 56555-RZPGHFY NAIL, 6 OR MORE 11/23/2017 90046-LPAZKQX NAIL, 6 OR MORE 04/17/2011 96526-EMMUTAT NAIL, 6 OR MORE 07/20/2011 95954-ZEZMHAT NAIL, 6 OR MORE 08/17/2011 83888-ESGWXWO NAIL, 6 OR MORE 09/19/2011 67772-BLSZWOX NAIL, 6 OR MORE 12/25/2011 26456-OWWRBIA NAIL, 6 OR MORE 03/13/2012 16382-ITWVBVV NAIL, 6 OR MORE 06/19/2012 88425-RRDELSN NAIL, 6 OR MORE 09/16/2012 72424-BYYIHOH NAIL, 6 OR MORE 12/04/2012 83849-WMNMELF NAIL, 6 OR MORE 03/12/2013 21829-NDVNZVL NAIL, 6 OR MORE 06/18/2013 72733-MDPZEBV NAIL, 6 OR MORE 09/18/2013 58820-CHTKPAO NAIL, 6 OR MORE 12/18/2013 65531-VFWETIW NAIL, 6 OR MORE 03/19/2014 43692-IEMBIQA NAIL, 6 OR MORE 09/17/2014 77083-MEBPJLF NAIL, 6 OR MORE 12/17/2014 80219-NRDBZQN NAIL, 6 OR MORE 06/18/2014 88636-BFVHYSQ NAIL, 6 OR MORE 03/24/2015 10976-MLPLXOC NAIL, 6 OR MORE 06/17/2015 36832-ZPZVJWN NAIL, 6 OR MORE 09/16/2015 44654-Sogurcek Plate 06/18/2014 52701-Djbcwhpc Plate 12/17/2014 55818-Tgegwwyr Plate 12/18/2013 54925-Sdkgxggr Plate 09/18/2013 73173-Jgfjmwas Plate 03/12/2013 75502-Eeduqhni Plate 01/04/2017 84520-Hdvjsgmi Plate 06/21/2023 69752- Debride <25 sq cm 02/14/2024 01186- Debride <25 sq cm 08/25/2021 68450- Debride <25 sq cm 08/12/2020 50391- Debride <25 sq cm 04/05/2020 76494- Debride <25 sq cm 05/13/2020 30261- Debride <25 sq cm 02/23/2020 43609- Debride <25 sq cm 06/08/2022 69099- Debride <25 sq cm 11/24/2021 51326- Debride <25 sq cm 12/08/2021 22540- Debride <25 sq cm 01/05/2022 19086- Debride <25 sq cm 02/23/2022 04884- Debride <25 sq cm 12/04/2012 09630- Debride <25 sq cm 12/25/2011 52969- Debride <25 sq cm 09/19/2011 50983- Debride <25 sq cm 08/17/2011 44223- Debride <25 sq cm 07/20/2011 98877- Debride <25 sq cm 12/18/2013 03867- Debride <25 sq cm 03/19/2014 22958-MUXHAZL SKIN/TISSUE 12/18/2019 41078-MRVINCO SKIN/TISSUE 01/05/2020 01659-ITAYQAO SKIN/TISSUE 01/19/2020 45804-OLYMQDY SKIN/TISSUE 02/05/2020 53260-SQKG SKIN LESIONS, OVER 4 09/18/19 33277-FJEC SKIN LESIONS, OVER 4 06/05/19 43701-UPYL SKIN LESIONS, OVER 4 03/06/20 05092-HYUB SKIN LESIONS, OVER 4 12/06/19 05122-RZZZ SKIN LESIONS, OVER 4 08/30/19 40478-IOZR SKIN LESIONS, OVER 4 05/30/19 19374-KZFB SKIN LESIONS, OVER 4 01/05/20 56531-ZOJP SKIN LESIONS, OVER 4 02/22/20 18 32508-JPWG SKIN LESIONS, OVER 4 11/24/19 32224-UDEX SKIN LESIONS, OVER 4 05/10/20 25691-UEMX SKIN LESIONS, OVER 4 08/10/19 23043-ULMD SKIN LESIONS, OVER 4 02/24/20 90967-YERZ SKIN LESIONS, OVER 4 11/25/19 79444-LXIS SKIN LESIONS, OVER 4 06/08/19 20249-ECHK SKIN LESIONS, OVER 4 09/12/19 29525-MFMG SKIN LESIONS, OVER 4 03/15/20 00882-VLNA SKIN LESIONS, OVER 4 12/12/19 68866-RYDG SKIN LESIONS, OVER 4 02/23/20 20802-FKSC SKIN LESIONS, OVER 4 12/18/19 66930-NIUB SKIN LESIONS, OVER 4 05/13/20 33033-GAEP SKIN LESIONS, OVER 4 08/13/19 50258-UDIS SKIN LESIONS, OVER 4 11/19/19 93148-PWGH SKIN LESIONS, OVER 4 08/26/19 62012-PSRB SKIN LESIONS, OVER 4 02/18/20 47841-TMPK SKIN LESIONS, OVER 4 02/14/20 30352-ILAL SKIN LESIONS, OVER 4 06/02/19 22718-SZER SKIN LESIONS, OVER 4 06/21/19 46754-LLSA SKIN LESIONS, OVER 4 10/25/19 62984-TISB SKIN LESIONS, OVER 4 12/12/19 74379-IPUG SKIN LESIONS, OVER 4 09/02/19 23682-IVGA SKIN LESIONS, 2 TO 4 06/22/19 98808-MOEP SKIN LESIONS, 2 TO 4 10/06/19 66826-TPUH SKIN LESIONS, 2 TO 4 03/23/20 16 73644-DTAX SKIN LESIONS, 2 TO 4 12/22/19 16 42005-VHIF SKIN LESIONS, 2 TO 4 12/18/19 15 83941-DNKF SKIN LESIONS, 2 TO 4 03/24/20 15 44205-OBAH SKIN LESIONS, 2 TO 4 09/16/19 16 85117-OJDU SKIN LESIONS, 2 TO 4 06/17/19 16 Next Appt Details Provider Name:Sussy Lowery , 03/12/2025 02:45:00 PM, [address] [place], [address], Insurance Providers Payer Name Payer Address Payer Phone Subscriber Number Group Number Insured Name Patient Relationship to Insured Coverage Start Date Coverage End Date Medicare National Govt [facility] [address] [place] [address] [id number] Tobin Bey Self - patient is the insured [employer] Secondary to Medicare [address] [place] [address] [id number] Tobin Bey Self - patient is the insured Medical (General) History Medical History History ICD Code reflux mumps measles chicken pox hypertension diabetes mellitus Macular degeneration Other hammer toe(s) (acquired), right fo ot M20.41 Other hammer toe(s) (acquired), left sandeep t M20.42 Surgical History Surgery Date(Month/Year) cataract removal left total hip replacement 02/23/2015 R shoulder replacement 03/27/2017 Hospitalization History Reason Date(Month/Year) leg infection 08/19
--- NOTE | 2025-01-05 12:56 | MHC.PC.OV ---
Vital Signs 01/05/25 12:57 Height 5 ft 11 in Weight 182 lb BMI 25.4 BP 110/72 Blood Pressure Location Lt brachial Position Sitting Pulse 73 Pulse Source Pulse Oximeter Pulse Oximetry (%) 97 Oxygen Delivery Method Room Air Intake Visit Reasons: 3m follow uo Allergies No Known Allergies Allergy (Verified 01/05/25 13:13) Medication List - Last Reconciled 01/05/25 by Nubia Gray MD ascorbic acid (vitamin C) (Vitamin C) 1,000 mg PO DAILY blood sugar diagnostic (FreeStyle Lite Strips) check fasting blood sugar once a day blood-glucose meter (FreeStyle Lite Meter kit) check fasting blood sugar once a day [coQ10 (ubiquinol) ] empagliflozin (Jardiance) 10 mg PO DAILY ferrous sulfate 325 mg PO DAILY glucosamine-chondroitin 250-200 mg (Osteo Bi-Flex) 2 tabs PO TID lancets As directed lancets (Accu-Chek Fastclix Lancet Drum) Check blood sugar 3 times a day as directed lidocaine 5% 1 patch topical DAILY [magnesium ] metoprolol tartrate 100 mg PO DAILY multivitamin 1 tab PO DAILY mupirocin 2% topical TID rosuvastatin 10 mg PO .QSATURDAY semaglutide (Ozempic) 1 mg subcut QWEEK spironolactone 25 mg PO DAILY Tobacco use date assessed: 09/11/24 Fall risk assessment: 2 + Falls in past year Last assessed Fall Risk: 01/05/25 Dental Screening Dental Screen Date: 09/11/24 HPI 3m follow uo HPI Details 79-year-old male with history of diabetes mellitus, dyslipidemia hypertension and chronic wounds in buttocks , here today for his follow-up. - Reports episodes of elevated glucose levels, occasionally reaching 130 to 150 mg/dL, but prefers levels around 120 mg/dL. - Impaired wound healing: Persistent wound on the buttock and heel , [place] [facility] [place] - Visual disturbances: Experiences color perception changes and a floater in the right eye, under the care of an eye doctor. [facility] Medical History (Updated 01/12/25 @ 00:10 by Nubia Gray MD) Decreased glomerular filtration rate (GFR) Elevated serum creatinine Ulcer of left heel Chronic ulcer of buttock Hx of adenomatous polyp of colon Tinea unguium Anemia Elevated vitamin B12 level Osteoarthritis of left hip Dyslipidemia Eczema Essential hypertension Type 2 diabetes mellitus without complication, without long-term current use of insulin Surgical History Hx of colonoscopy History of cataract surgery H/O shoulder replacement History of total hip replacement Family History Father Smoker Emphysema, unspecified Mother HTN (hypertension) Diabetes mellitus Cancer Brother Diabetes mellitus Social History Housing: House Are you a primary manager respiratory care to a significant other at home: No Do you presently have visiting nurse or other home services: No Alcohol intake: current Patient Tobacco Use Status: Never used Tobacco e-Cigarette/Vaping Use: Never Used service: No Current occupational status: retired Cognitive needs: No Hearing needs: No Vision needs: No Questionnaire PHQ-9 Over the last 2 weeks, how often have you been bothered by any of the following problems? Depression Screening Interpretation: Negative Depression Screening Done: Yes Source: Developed by Drs. Unruly Figueroa, Mey Ramírez, John Wagner and colleagues, with an educational christina from [employer]. Thrive Questionnaire Date Thrive assessed: 01/05/25 I am a: Patient What is your living situation today?: I have a steady place to live Within the past 12 months, did the food you bought not last and you didn't have the money to get more?: Never true Within the past 12 months, did you worry whether your food would run out before you got money to buy more?: Never true Do you have trouble paying for medicines?: No Do you have trouble getting transportation to medical appointments?: No Do you have trouble paying your heating and electricity bill?: No Do you have trouble taking care of your child, family member or friend?: No Do you have trouble with day-to-day activities such as bathing, preparing meals, shopping, managing finances, etc.?: No Are you currently unemployed and looking for a job?: No Are you interested in more education?: No Please select the resources that you would like help with: None Currently or been in a relationship where the following occur: No concerns reported THRIVE Score: 0 AUDIT C Alcohol Use Questionnaire (AUDIT-C) 1. How often do you have a drink containing alcohol?: Never 3. How often do you have six or more drinks on one occasion?: Never Total Score: 0 Score Reviewed/Action Taken: Yes SHIRA-7 AMB Questionnaire SHIRA-7 Date SHIRA - 7 assessed: 01/05/25 Feeling nervous, anxious, or on edge: 0 = Not at all Not being able to stop or control worryin = Not at all Worrying too much about different things: 0 = Not at all Trouble relaxin = Not at all Being so restless that it is hard to sit still: 0 = Not at all Becoming easily annoyed or irritable: 0 = Not at all Feeling afraid as if something awful might happen: 0 = Not at all Total SHIRA-7 score (0-4 normal; 5-9 mild; 10-14 moderate; 15-21 severe): 0 Source: Developed by Drs. Unruly Figueroa, Mey Ramírez, John Wagner and colleagues, with an educational christina from [employer]. SHIRA-7 Assessment Billing SHIRA-7 Assessment Tool: SHIRA-7 Assessment 74077 Review of Systems Const Denies frequent falls, Denies headache(s), Reports lethargy, Reports poor appetite and Reports weight loss Eyes Details: Sees Dr. Fowler yearly Reports no additional complaints ENT Reports no additional complaints and Denies headache(s) Card Denies chest pain, Denies rapid heart rate, Denies lightheadedness, Denies palpitations and Denies dyspnea Resp Denies chest congestion, Denies cough and Denies dyspnea GI Denies abdominal pain, Denies melena, Denies hematochezia, Denies change in stool character and Denies heartburn Reports no additional complaints Musc Reports abnormal gait (Limping on right, walks with a cane) and Reports arthralgias (Right hip right hip right hip) Skin/Breast Details: Patient also has a heel ulcer, seen by Dr. Lowery who in turn [place] him [place] [facility] [place] Neuro Reports abnormal gait (Limping on right, walks with a cane), Denies frequent falls and Denies headache(s) Psych Reports no additional complaints Endo Denies palpitations Oscar/Lymph Reports no additional complaints Aller/Immun Reports no additional complaints Physical exam (Primary Care) Vital Signs: Last Vital Signs Pulse 73 01/05/25 12:57 BP 110/72 01/05/25 12:57 Pulse Ox 97 01/05/25 12:57 Oxygen Delivery Method Room Air 01/05/25 12:57 BMI result Body Mass Index 25.4 Tobacco/Smoking Status: Tobacco use Status Tobacco use date assessed 09/11/24 01/05/25 13:04 Patient Tobacco Use Status Never used Tobacco 01/05/25 13:04 e-Cigarette/Vaping Use Never Used 01/05/25 13:04 Depression Screening Interpretation: Negative Thrive Assessment: Date of Thrive Assessment Date Thrive assessed 01/05/25 01/05/25 13:04 Currently or been in a relationship where the following occur: No concerns reported Const General: comfortable, no acute distress and alert Nutritional Appearance: average body habitus Orientation/consciousness: patient oriented x3 Limitations: ambulation with cane HENMT Head: Yes normocephalic Ears: external ears normal General nose exam: Normal external nose present Face and sinus: Yes face symmetric Mouth: Normal oral and palatal mucosa present and moist mucous membranes Eyes General: appearance normal, both eyes and all related structures Neck Other: Supple, no lymphadenopathy , thyroid gland nonpalpable Resp Auscultation: clear to auscultation bilaterally Cardio Other: S1-S2 present regular rate and rhythm GI Other: Normal bowel sounds, soft, nontender, no mass palpated General: Yes no CVA tenderness Back/Spine/Pelvis Back: no CVA tenderness and No back tenderness Skin Other: superficial ulceration with no drainage noted on medial left and right buttock respectively, no surrounding erythema or swelling Neuro General: patient oriented x3, tone normal, moves all extremities, no focal motor deficits and decrease sensation to monofilament Cranial nerves: Yes CN's II-XII intact bilaterally Cognition (Neuro): normal cognition Gait exam (Neuro): Antalgic gait present (Favoring right leg) Extrem General: Yes no joint enlargement and Yes Limp noted (right) Results Reviewed Results Reviewed: Name: Tobin Bey Age/Sex: 79/M : 1945 Unit#: [id number] Attend Dr: Nubia Gray MD Re12/06/24 Status: [facility]P [facility]: SPEC : [id number] UZMA: 12/06/24 STATUS: COMP REQ : [id number] RECD: 12/06/[address]: Nubia Gray MD COMP: 12/06/24 ENTERED: 12/06/[address] [facility] [address]: ORDERED: CBC Auto Diff Test Result Flag Reference WBC 6.0 4.8-10.8 X10*3/uL RBC 4.86 4.60-5.80 X10*6/uL HGB 14.1 14.0-18.0 g/dl HCT 42.3 42.0-52.0 % MCV 87.0 80.0-98.0 fL MCH 29.0 27.0-33.0 pg MCHC 33.3 31.0-36.0 g/dl RDW 13.5 11.0-16.0 % PLT 206 160-400 X10*3/uL MPV 9.8 9.4-12.4 fL Neut Pct Auto 72.0 45-73 % ImGran Pct Auto 0.7 H 0.0-0.4 % Lymp Pct Auto 14.0 L 20-40 % [place] Pct Auto 11.5 H 2-11 % Eos Pct Auto 0.8 0-4 % Baso Pct Auto 1.0 0-2 % NRBC Pct Auto 0.0 0.0-0.2 /100WBC ANC Neut Abs # 4.3 2.0-8.3 x10*3/uL ImGran Abs Auto 0.04 H 0.00-0.03 X10*3/uL Lymph Abs Auto 0.8 L 1.2-4.9 X10*3/uL [place] Abs Auto 0.7 0.1-1.2 X10*3/uL Eos Abs Auto 0.1 0.0-0.4 X10*3/uL Baso Abs Auto 0.1 0.0-0.2 X10*3/uL NRBC Abs Auto 0.000 0.0-0.012 X10*3/uL Name: Tobin Bey Age/Sex: 79/M : 1945 Unit#: [id number] Attend Dr: Nubia Gray MD Re12/06/24 Status: DEP REF Location: [id number] Disch: SPEC : [id number] UZMA: 12/06/24 STATUS: COMP REQ : [id number] RECD: 12/06/24-[address]: Nubia Gray MD COMP: 12/06/24-1154 ENTERED: 12/06/24-[address] [facility] [address]: ORDERED: Met Prof Fast, IRON PROF, AST, ALT, Lipid Panel Test Result Flag Reference Sodium 138 135-145 mmol/L Potassium 3.3 3.3-5.1 mmol/L CL 99 96-108 mmol/L CO2 28 22-29 mmol/L Gap 14 12-20 BUN 26 H 9-16 mg/dL Creat 1.35 0.5-1.4 mg/dL eGFR 51 Chronic Kidney Disease: Estimated GFR < 60 mL/min/1.73m2 Severe Kidney Disease: Estimated GFR < 15 mL/min/1.73m2 FBS 129 H 60-99 mg/dL A fasting glucose of 126 mg/dl or greater on more than one occasion is considered diagnostic of diabetes. CA 9.7 8.4-10.2 mg/dL Iron 47 45-160 mcg/dL TIBC 264 228-428 mcg/dL Saturation 18 15-50 % UIBC 217 ug/dL AST (GOT) 24 5-37 U/L ALT (GPT) 9 0-40 U/L Triglyceride 75 <150 mg/dL Desirable Triglyceride: less than 150 mg/dL Borderline High Triglyceride 150-199 mg/dL High Triglyceride: 200-499 mg/dL Very High Triglyceride: greater than or equal to 5OO mg/dL Cholesterol 126 <200 mg/dL Desirable Cholesterol: less than 200 mg/dL Borderline High Cholesterol: 200-239 mg/dL High Cholesterol: greater than 239 mg/dL LDL Calculated 62 <100 mg/dL Desirable LDL: less than 100 mg/dL Near Optimal/Above Optimal LDL: 110-129 mg/dL Borderline High LDL: 130-159 mg/dL High LDL: 160-189 mg/dL Very High LDL: greater than or equal to 190 mg/dL HDL 49 >40 mg/dL Desirable HDL: greater than 40 mg/dL Note: This HDL assay may give artificially low results in patients with liver disease. Laboratory Tests 12/06/24 09:42 Estimat Average Glucose 117 Hemoglobin A1c % 5.7 Coding Level of Care Code Est Pt Level 4 (38042) Complex EM visit Add On G2211 Diagnoses Type 2 diabetes mellitus without complication, without long-term current use of insulin E11.9 Dyslipidemia E78.5 Essential hypertension I10 Chronic ulcer of buttock L98.419 Primary osteoarthritis of right hip M16.11 Additional Codes SHIRA-7 Assessment Billing - SHIRA-7 Assessment Tool: SHIRA-7 Assessment 61005 ([id number]) Assessment & Plan Assessment & Plan (1) Type 2 diabetes mellitus without complication, without long-term current use of insulin: Code(s): E11.9 - Type 2 diabetes mellitus without complications Category: Medical Plan: Diabetes mellitus well controlled with hemoglobin A1c at 5.7%. Up-to-date with his diabetes retinopathy screening, sees Dr. Fowler. Continued on Ozempic 1 mg once a week in addition to Jardiance 10 mg once a day in the morning (2) Dyslipidemia: Code(s): E78.5 - Hyperlipidemia, unspecified Category: Medical Plan: Reviewed recent fasting lipid profile with patient with levels within normal limits . Continue rosuvastatin 10 mg once a week , in addition to adherence to low-cholesterol diet and regular exercise, at least 30 minutes 3 to 4 times a week. Advised patient to make healthy food choices, eat more fruits, vegetables, whole grains, wild caught fish and low-fat dairy. Limit amount of meat and fried or fatty food products, as well as processed foods and fast foods. (3) Essential hypertension: Comment: ff'd by dr madsen Code(s): I10 - Essential (primary) hypertension Category: Medical Plan: Blood pressure at goal of less than 130/80. Continue with current medication. Reinforced importance of following a low sodium diet, getting regular exercise, and lowering stress levels. (4) Chronic ulcer of buttock: Code(s): L98.419 - Non-pressure chronic ulcer of buttock with unspecified severity Category: Medical Plan: Currently [place] [facility] [place] (5) Primary osteoarthritis of right hip: Code(s): M16.11 - Unilateral primary osteoarthritis, right hip Category: Medical Plan: Has been seen by Orthopedics who recommended surgery but would not due until buttock wounds are healed Orders: Orders Lipid Panel 03/28/25 E11.9 - Type 2 diabetes mellitus without complications, E78.5 - Hyperlipidemia, unspecified Alanine Aminotransferase 03/28/25 E11.9 - Type 2 diabetes mellitus without complications, E78.5 - Hyperlipidemia, unspecified Hemoglobin A1c 03/28/25 E11.9 - Type 2 diabetes mellitus without complications, E78.5 - Hyperlipidemia, unspecified Aspartate Amino Transferase 03/28/25 E11.9 - Type 2 diabetes mellitus without complications, E78.5 - Hyperlipidemia, unspecified
[2025-01-05 12:57] VITALS: BP 110/72; PULSE 73; O2SAT 97; BMI 25.4
== END 2025-01-05 13:31 | disposition home or self-care (01) ==
LOC: HO.HMCC 12:49
PROVIDERS: PCP Internal Medicine; Visit Provider Internal Medicine
DX: E11.9 Type 2 diabetes mellitus without complications (principal); E78.5 Hyperlipidemia, unspecified; I10 Essential (primary) hypertension; L98.419 Non-pressure chronic ulcer of buttock with unspecified severity; M16.11 Unilateral primary osteoarthritis, right hip

== ENCOUNTER → 2025-01-05 12:48 | Outpatient (BNVA) | payer MEDICARE, SELFPAY | PROVIDERS: PCP Internal Medicine; Visit Provider Internal Medicine | DX: E11.9 Type 2 diabetes mellitus without complications (principal); E78.5 Hyperlipidemia, unspecified; I10 Essential (primary) hypertension; L98.419 Non-pressure chronic ulcer of buttock with unspecified severity; M16.11 Unilateral primary osteoarthritis, right hip | CPT/HCPCS: 96127; 99212 ==

== ENCOUNTER 2025-01-14 10:03 | Outpatient (REF) | payer MEDICARE, SELFPAY ==
--- OUTSIDE RECORDS SUMMARY | 2025-01-12 11:05 | XMS_ITS | Encounter Summary ---
Author Name [facility] [place] [facility] [place] Address [address] [place] [address] Care Team Providers Care Project Management Name Role Phone TAHIR SCRUGGS Primary Care Provider Unavailabl e Insurance Providers: [...] PLAN MEDICARE SUPPLEMEN MARIEL Apr 27, 2012 [facility] [id number] UL PATIENT AARP MED [place] MEDICARE SUPPLEMEN MARIEL Apr 27, 2012 [facility] [id number] [phone] ELIZABETH AMOS UL PATIENT MEDICARE (WNR) MEDICARE (M) PART A 2011 PART A [id number] ELIZABETH AMOS UL PATIENT MEDICARE (WNR) MEDICARE (M) PART B 2011 PART B [id number] ELIZABETH AMOS UL PATIENT Selected Encounter This section includes the information on record at [place] for the Encounter. Date/Time Encounter Type Encounter Description Reason Provider Source Jan 12, 2025 03:05 PM Outpatient Encounter PRIMARY CARE/MEDICINE CARIN OLIVARES [facility] Encounter Template Text not used by [place] Plan of Treatment: Future Appointments (+ 6 months) and Future Tests (+/- 45 days) The Plan of Treatment section includes future care activities for the [facility] [place] [facility] This section includes future appointments and future orders which are active, pending or scheduled. Future Appointments This section includes appointments that were scheduled to occur 6 months from the date of the Encounter, up to a maximum of 20 appointments. The data comes from all [place] treatment facilities. Appointment Date/Time Appointment Type Appointme nt Facility Name May 07, 2025 11:30 AM AMBULATORY - MEDICINE [facility] Social History: Smoking Status (Most current) and Tobacco Use (All prior to encounter date) This section includes the most current, and the historical, smoking and tobacco- related health factors from the [place] facility where the Encounter took place. Current Smoking Status This section includes the most current smoking, or tobacco-related health factor, from the [place] facility where the Encounter took place. Date/Time Current Smoking Status Comment Facil ity Mar 06, 2024 03:00 PM VA-TOBACCO NEVER USED [facility] Tobacco Use History This section includes a history of the smoking, or tobacco-related health factors, that were collected on or before the date of the Encounter. The data comes from the [place] facility where the Encounter took place. Date/Time Smoking Status/Tobacco Use Comment F acshaneka Jan 27, 2021 03:35 PM VA-TOBACCO NEVER USED [facility] Encounter Notes: All associated encounter notes This section contains the clinical notes associated to the Encounter. Date/Time Encounter Note(s) Provider Source Jan 12, 2025 03:05 PM ADDENDUM: LOCAL TITLE: Addendum STANDARD TITLE: ADDENDUM DATE OF NOTE: JAN 12, 2025@15:05:53 ENTRY DATE: JAN 12, 2025@15:05:54 AUTHOR: MACIE OLIVARES EXP COSIGNER: URGENCY: STATUS: COMPLETED Adding CPP to secure message for review and advise. /med/ ANDREI OLIVARES LPN LPN Signed: 01/12/2025 15:06 Receipt Acknowledged By: 01/14/2025 10:16 /med/ Ysabel Weems PharmD Clinical Pharmacy Practitioner ========= --- Original Document --- 01/12/25 PRIMARY CARE SECURE MESSAGING: ------Original Message -------- Sent: 01/12/2025 01:54 PM ET From: TOBIN AMOS To: Ottoniel SCRUGGSPRIMARY CARE_SPO Subject: Medication:SEMAGLUTIDE 1MG/0.375ML INJ PEN 1.5ML [facility] Doc said I was losing too much weight. My weight is 182lbs. She said I should go down to SEMAGLUTIDE 0.5MG/0.375ML INJ PEN 1.5ML or use the one I have, SEMAGLUTIDE 1MG/0.375ML INJ PEN 1.5ML every 2 weeks A1c is 5.8 at the last check-up Tobin Schafer /es/ ANDREI OLIVARES LPN ACUPUNCTURE PHYSICIAN Signed: 01/12/2025 15:05 MACIE OLIVARES [facility] Jan 12, 2025 03:05 PM PRIMARY CARE SECUR E MESSAGING: LOCAL TITLE: PRIMARY CARE SECURE MESSAGING STANDARD TITLE: PRIMARY CARE SECURE MESSAGING DATE OF NOTE: JAN 12, 2025@15:05 ENTRY DATE: JAN 12, 2025@15:05:37 AUTHOR: MACIE OLIVARES EXP COSIGNER: URGENCY: STATUS: COMPLETED PRIMARY CARE SECURE MESSAGING Has ADDENDA ------Original Message -------- Sent: 01/12/2025 01:54 PM ET From: TOBIN AMOS To: Ottoniel SCRUGGSPRIMARY CARE_SPOPC Subject: Medication:SEMAGLUTIDE 1MG/0.375ML INJ PEN 1.5ML [facility] Doc said I was losing too much weight. My weight is 182lbs. She said I should go down to SEMAGLUTIDE 0.5MG/0.375ML INJ PEN 1.5ML or use the one I have, SEMAGLUTIDE 1MG/0.375ML INJ PEN 1.5ML every 2 weeks A1c is 5.8 at the last check-up Tobin Mullinscassidy Mr /med/ ANDREI OLIVARES LPN LPN Signed: 01/12/2025 15:05 01/12/2025 ADDENDUM STATUS: COMPLETED Adding CPP to secure message for review and advise. /med/ ANDREI OLIVARES LPN LPN Signed: 01/12/2025 15:06 Receipt Acknowledged By: 01/14/2025 10:16 /med/ Ysabel Weems PharmD Clinical Pharmacy Practitioner 01/14/2025 ADDENDUM STATUS: COMPLETED Left voice message for pt to contact fiction writer at [phone] [phone]. /med/ Ysabel Weems PharmD Clinical Pharmacy Practitioner Signed: 01/14/2025 10:17 [facility]ES [facility]
--- OUTSIDE RECORDS SUMMARY | 2025-01-14 11:06 | XMS_ITS | Encounter Summary ---
Author Organization [facility] Address [address] [place] [address] Care Team Providers Care Maintenance Shop Clerk Name Role Phone Jagjit Hancock Primary Care Provider Gigi price Encounter Details Date Type Department Care Team (Latest Contact Info) Description 08/16/2024 Lab Requisition [facility] [address] [place] [phone] Rebecca Gomez MD [address] [place] [phone] Essential (primary) hypertension; Anemia, unspecified; Cellulitis, unspecified; [...] Comprehensive metabolic panel (08/18/2024 7:18 AM EDT) [facility] Signature Sodium 132(L) 133 - 145 [...] [facility] Comment:Calculation based on the Chronic [...] LAB CHEMISTRY METHOD 08/18/2024 12:46 PM EDT [facility] Alkaline Phosphatase 93 42 - 121 unit/L LAB CHEMISTRY METHOD 08/18/2024 12:46 PM EDT [facility] Total Protein 7.2 6.0 - 8.0 g/dL LAB CHEMISTRY METHOD 08/18/2024 12:46 PM [facility] Albumin 3.4 3.2 - 5.0 g/dL LAB CHEMISTRY METHOD 08/18/2024 12:46 PM EDT [facility] Total Bilirubin 0.6 0.0 - 1.4 mg/dL LAB CHEMISTRY METHOD 08/18/2024 12:46 PM EDT [facility] Blood Venous blood specimen / Unknown Venipuncture / Unknown 08/18/2024 7:18 AM EDT 08/18/2024 11:03 AM EDT Rebecca Gomez MD LAB BLOOD ORDERABLES Final Resul t [facility] [address] [place] [address], [place] [phone] * (ABNORMAL) Complete blood count (08/18/2024 7:18 AM EDT) WBC 7.0 4.8 - 10.8 K/mcL LAB HEMETOLOGY METHOD 08/18/2024 11:59 AM EDT [facility] RBC 4.90 4.50 - 5.50 M/mcL LAB HEMETOLOGY METHOD 08/18/2024 11:59 AM EDT [facility] Hemoglobin 14.1 13.5 - 17.5 g/dL LAB HEMETOLOGY METHOD 08/18/2024 11:59 AM T [facility] Hematocrit 41.1(L) 42.0 - 54.0 % LAB HEMETOLOGY METHOD 08/18/2024 11:59 AM EDT [facility] MCV 83.4 79.0 - 98.0 FL LAB HEMETOLOGY METHOD 08/18/2024 11:59 AM EDT [facility] MCH 28.6 27.0 - 32.0 pcg LAB HEMETOLOGY METHOD 08/18/2024 11:59 AM EDT [facility] MCHC 34.3 32.0 - 37.0 g/dL LAB HEMETOLOGY METHOD 08/18/2024 11:59 AM EDT [facility] RDW 14.2 11.0 - 15.0 % LAB HEMETOLOGY METHOD 08/18/2024 11:59 AM EDT [facility] Platelets 266 130 - 400 K/mcL LAB HEMETOLOGY METHOD 08/18/2024 11:59 AM EDT [facility] MPV 8.9 7.0 - 11.0 FL LAB HEMETOLOGY METHOD 08/18/2024 11:59 AM EDT [facility] NRBC 0.0 <1.0 % LAB HEMETOLOGY METHOD 08/18/2024 11:59 AM T [facility] NRBC Absolute 0.00 <0.10 K/mcL LAB HEMETOLOGY METHOD 08/18/2024 11:59 AM [facility] Blood Venous blood specimen / Unknown Venipuncture / Unknown 08/18/2024 7:18 AM EDT 08/18/2024 11:03 AM EDT us Rebecca Gomez MD LAB BLOOD ORDERABLES Final Resul t [facility] [address] [place] [address], documented in this encounter Visit Diagnoses Diagnosis Essential (primary) hypertension Unspecified essential hypertension Anemia, unspecified Cellulitis, unspecified Type 2 diabetes mellitus without complications (CMS/HCC V24, CMS/HCC V28) documented in this encounter Additional Health Concerns Infection Onset Date Last Indicated Resolved Time C. difficile 08/02/2024 08/02/2024 08/26/2024 7:06 PM EDT documented as of this encounter Care Teams Maintenance Shop Clerk Relationship Specialty Start Date End Date Jagjit Hancock PA [address] [place] [address] [place] [phone] PCP - General Physician Hogshead Cooper 07/23/24 documented as of this encounter
--- OUTSIDE RECORDS SUMMARY | 2025-01-14 11:07 | XMS_ITS | Patient Health Record ---
[facility] Address [address] [place] [address] Care Team Providers Care Music Education Adjunct Professor Name Role Phone Marina MCDANIELS, Nubia Zelaya Primary Care Provider Un available Black, Sussy Unavailable [phone] Allergies No Known Allergies Results Component Value [...] Polyneuropathy due to type 2 diabetes mellitus (887139960) Type 2 diabetes mellitus with diabetic polyneuropathy (E11.42) Active confirmed Vital Signs Blood pressure diastolic 80 mm Hg 12/11/2024 Height 6 ft in 12/11/2024 Blood pressure systolic 122 mm Hg 12/11/2024 Weight 215 lbs 12/11/2024 BMI 29.16 kg/m2 12/11/2024 Procedures Procedure Date Ordered Date Performed Result Body Sit e 85545-XIGZRJL NAIL, 6 OR MORE 02/14/2024 N/A 79602- Debride <25 sq cm 02/14/2024 N/A 50998-DHOQ SKIN LESIONS, OVER 4 02/14/2024 N/A 40512-RSCYRYD NAIL, 6 OR MORE 06/02/2024 N/A 25441-QNFG SKIN LESIONS, OVER 4 06/02/2024 N/A 51989-AVEHVEA NAIL, 6 OR MORE 09/01/2024 N/A 19132-GGVL SKIN LESIONS, OVER 4 09/01/2024 N/A 87785-FMHPQOX NAIL, 6 OR MORE 12/11/2024 N/A 08139-GBFG SKIN LESIONS, OVER 4 12/11/2024 N/A Encounters Encounter Location Date Provider Diagnosis [address] [address] 02/14/2024 Sussy Lowery 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 ; Other hammer toe(s) (acquired), right foot M20.41 ; Type 2 diabetes mellitus with diabetic polyneuropathy E11.42 ; Tinea unguium B35.1 and Other hammer toe(s) (acquired), left foot M20.[address] [address] 06/02/2024 Sussy Lowery Type 2 diabetes mellitus with diabetic polyneuropathy E11.42 and Tinea unguium B35.[address] [address] 09/01/2024 Sussy Lowery Type 2 diabetes mellitus with diabetic polyneuropathy E11.42 ; Tinea unguium B35.1 and Tinea pedis of both feet B35.[address] [address] 12/11/2024 Sussy Lowery Type 2 diabetes mellitus with diabetic polyneuropathy E11.42 and Tinea unguium B35.[address] [address] 06/03/2024 Sussyjesus Lowery [address] [address] 08/26/2024 Sussyjesus Lowery [address] [address] 09/10/2024 Sussy Lowery Assessments Encounter Date Diagnosis [...] Date *Wound Culture 12/18/2019 *Wound Culture 11/24/2021 58138-BNICRJP NAIL, 6 OR MORE 08/25/2021 20335-IETLSBV NAIL, 6 OR MORE 12/18/2019 44847-ODECNLR NAIL, 6 OR MORE 11/24/2021 56439-LRAEKQT NAIL, 6 OR MORE 02/23/2022 83178-PBEDPQI NAIL, 6 OR MORE 06/08/2022 11499-QHXNXWI NAIL, 6 OR MORE 09/11/2022 69658-KDGMLLB NAIL, 6 OR MORE 12/11/2022 67500-DAZPAMB NAIL, 6 OR MORE 09/18/2019 66493-BXSGIRK NAIL, 6 OR MORE 02/23/2020 29513-OIGHEGI NAIL, 6 OR MORE 05/13/2020 97524-DADZFYK NAIL, 6 OR MORE 08/12/2020 26993-YWQUUMB NAIL, 6 OR MORE 11/18/2020 96836-HOSCBOG NAIL, 6 OR MORE 02/17/2021 31371-PXEMFTG NAIL, 6 OR MORE 03/15/2023 85816-RETHZTT NAIL, 6 OR MORE 06/21/2023 16778-WNMDZUD NAIL, 6 OR MORE 10/25/2023 34548-YFVPVUZ NAIL, 6 OR MORE 02/14/2024 25126-YSRMNOQ NAIL, 6 OR MORE 06/02/2024 83789-GSQGJBY NAIL, 6 OR MORE 09/01/2024 23596-EGBIEJR NAIL, 6 OR MORE 12/11/2024 69875-CNKYNWK NAIL, 6 OR MORE 03/06/2019 09782-KUWEXPG NAIL, 6 OR MORE 06/05/2019 12087-SLZQDOR NAIL, 6 OR MORE 02/21/2018 46896-OQIROSX NAIL, 6 OR MORE 05/30/2018 90034-ZBHCNPJ NAIL, 6 OR MORE 08/29/2018 41567-IFASJRD NAIL, 6 OR MORE 12/05/2018 65138-MPPDMKE NAIL, 6 OR MORE 12/22/2015 10270-ZCGXIES NAIL, 6 OR MORE 03/23/2016 35928-NVYAFBV NAIL, 6 OR MORE 06/22/2016 35370-ICJTFED NAIL, 6 OR MORE 10/05/2016 94215-YBAZGYK NAIL, 6 OR MORE 01/04/2017 51544-NZEHPKO NAIL, 6 OR MORE 05/10/2017 89591-CJPBLNT NAIL, 6 OR MORE 08/09/2017 23210-FLUAKFO NAIL, 6 OR MORE 11/23/2017 54862-AZXUGCI NAIL, 6 OR MORE 04/17/2011 95979-UOJKNAQ NAIL, 6 OR MORE 07/20/2011 51622-INQLQLC NAIL, 6 OR MORE 08/17/2011 76714-XSPZNGI NAIL, 6 OR MORE 09/19/2011 11383-ADBPVCZ NAIL, 6 OR MORE 12/25/2011 68419-SBTMTBT NAIL, 6 OR MORE 03/13/2012 54237-BGOPPJP NAIL, 6 OR MORE 06/19/2012 75244-AJAVAIQ NAIL, 6 OR MORE 09/16/2012 22822-LUYKJJO NAIL, 6 OR MORE 12/04/2012 71090-YWCABQQ NAIL, 6 OR MORE 03/12/2013 04283-DYNZOEM NAIL, 6 OR MORE 06/18/2013 59412-TPTXDGB NAIL, 6 OR MORE 09/18/2013 07915-LJHROYL NAIL, 6 OR MORE 12/18/2013 31679-RVXNNRG NAIL, 6 OR MORE 03/19/2014 70653-BRBPVZM NAIL, 6 OR MORE 09/17/2014 86470-JCRUIKW NAIL, 6 OR MORE 12/17/2014 72556-NFLZILD NAIL, 6 OR MORE 06/18/2014 78354-IPPOLTU NAIL, 6 OR MORE 03/24/2015 66003-QAJDFFL NAIL, 6 OR MORE 06/17/2015 90917-DNLTQCA NAIL, 6 OR MORE 09/16/2015 23567-Hswlpegn Plate 06/18/2014 66832-Ykpvrbxy Plate 12/17/2014 34019-Qxsevlag Plate 12/18/2013 98703-Mubwoulx Plate 09/18/2013 56584-Ojsazaws Plate 03/12/2013 83039-Zykwlzoz Plate 01/04/2017 01620-Mfnzmkwt Plate 06/21/2023 87107- Debride <25 sq cm 02/14/2024 72774- Debride <25 sq cm 08/25/2021 72409- Debride <25 sq cm 08/12/2020 86289- Debride <25 sq cm 04/05/2020 21765- Debride <25 sq cm 05/13/2020 04576- Debride <25 sq cm 02/23/2020 75528- Debride <25 sq cm 06/08/2022 17921- Debride <25 sq cm 11/24/2021 27935- Debride <25 sq cm 12/08/2021 39317- Debride <25 sq cm 01/05/2022 53555- Debride <25 sq cm 02/23/2022 57644- Debride <25 sq cm 12/04/2012 60163- Debride <25 sq cm 12/25/2011 16411- Debride <25 sq cm 09/19/2011 53201- Debride <25 sq cm 08/17/2011 21162- Debride <25 sq cm 07/20/2011 45860- Debride <25 sq cm 12/18/2013 32307- Debride <25 sq cm 03/19/2014 33890-UYVHAPU SKIN/TISSUE 12/18/2019 94190-CZWZDAZ SKIN/TISSUE 01/05/2020 42444-CZPSWBE SKIN/TISSUE 01/19/2020 96977-GWOOLSY SKIN/TISSUE 02/05/2020 88660-BPPQ SKIN LESIONS, OVER 4 09/18/19 96423-OWAG SKIN LESIONS, OVER 4 06/05/19 88228-EBMA SKIN LESIONS, OVER 4 03/06/20 56267-UZOD SKIN LESIONS, OVER 4 12/06/19 16717-HAEO SKIN LESIONS, OVER 4 08/30/19 95838-FPQG SKIN LESIONS, OVER 4 05/30/19 97434-QKMS SKIN LESIONS, OVER 4 01/05/20 29009-HEXF SKIN LESIONS, OVER 4 02/22/20 18 00369-TADB SKIN LESIONS, OVER 4 11/24/19 26554-HLOC SKIN LESIONS, OVER 4 05/10/20 19629-AAQS SKIN LESIONS, OVER 4 08/10/19 44880-ECJH SKIN LESIONS, OVER 4 02/24/20 01715-GNZT SKIN LESIONS, OVER 4 11/25/19 61549-FSIF SKIN LESIONS, OVER 4 06/08/19 78853-GGOL SKIN LESIONS, OVER 4 09/12/19 56115-LKGD SKIN LESIONS, OVER 4 03/15/20 06739-PHNO SKIN LESIONS, OVER 4 12/12/19 27852-FATX SKIN LESIONS, OVER 4 02/23/20 02949-QFRP SKIN LESIONS, OVER 4 12/18/19 67848-QPSC SKIN LESIONS, OVER 4 05/13/20 28999-TEQY SKIN LESIONS, OVER 4 08/13/19 52849-BBAN SKIN LESIONS, OVER 4 11/19/19 20842-ACOI SKIN LESIONS, OVER 4 08/26/19 70060-OWHS SKIN LESIONS, OVER 4 02/18/20 54553-VXFP SKIN LESIONS, OVER 4 02/14/20 06289-HTYL SKIN LESIONS, OVER 4 06/02/19 03002-LYRY SKIN LESIONS, OVER 4 06/21/19 59781-YKTJ SKIN LESIONS, OVER 4 10/25/19 66095-BDRC SKIN LESIONS, OVER 4 12/12/19 67166-YOBD SKIN LESIONS, OVER 4 09/02/19 55334-DGIF SKIN LESIONS, 2 TO 4 06/22/19 28739-ZXYT SKIN LESIONS, 2 TO 4 10/06/19 54744-QVTO SKIN LESIONS, 2 TO 4 03/23/20 16 00144-EYNL SKIN LESIONS, 2 TO 4 12/22/19 16 37082-LHOY SKIN LESIONS, 2 TO 4 12/18/19 15 07296-MSPH SKIN LESIONS, 2 TO 4 03/24/20 15 61679-SEHB SKIN LESIONS, 2 TO 4 09/16/19 16 58686-LQWN SKIN LESIONS, 2 TO 4 06/17/19 16 Next Appt Details Provider Name:Sussy Lowery , 03/12/2025 02:45:00 PM, [address] [place], [address], Insurance Providers Payer Name Payer Address Payer Phone Subscriber Number Group Number Insured Name Patient Relationship to Insured Coverage Start Date Coverage End Date Medicare National Govt [facility] [address] [place] [address] [id number] Tobin Bey Self - patient is the insured AARP Secondary to Medicare [address] [place] [address] [phone] [id number] Tobin Bey Self - patient is [...]
--- OUTSIDE RECORDS SUMMARY | 2025-01-14 11:07 | XMS_ITS | Patient Health Record ---
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.82) Active confirmed Problem 371899208057828 Aspirin long-term use (Z79.82) Active confirmed Problem 75521391 Iron deficiency anemia, unspecified iron deficiency anemia type (D50.9) Active confirmed Vital Signs Blood pressure diastolic 11 mm Hg 09/11/2024 Height 72 in 09/11/2024 Blood pressure systolic 111 mm Hg 09/11/2024 Weight 193 lbs 09/11/2024 BMI 26.17 kg/m2 09/11/2024 Encounters Encounter Location Date Provider Diagnosis [facility] [address] [place] [address] 09/11/2024 Daryn Pimentel Jr Colon cancer screening Z12.11 and Aspirin long-term use Z79.82 [facility] [address] [place] [address] 05/30/2024 Daryn Pimentel Jr [facility] [address] [place] [address] 09/11/2024 Daryn Pimentel Jr [facility] [address] [place] [address] 09/11/2024 Daryn Pimentel Jr Assessments Encounter Date Diagnosis [...] Start Date Coverage End Date MEDICARE OF [place] [address] [id number] REUBEN AMOS Self - patient is the insured 2 [facility] SU[employer] [facility] [address] [place] [address] [id number] REUBEN AMOS Self - patient is the insured 2 [...]
[2025-01-14 15:57] LABS: Anion Gap 17 (12-20); Blood Urea Nitrogen 29 mg/dL (9-16); Carbon Dioxide 27 mmol/L (22-29); Chloride 99 mmol/L (96-108); Estimated Glomerular Filt Rate 51; Potassium 3.9 mmol/L (3.3-5.1); Sodium 139 mmol/L (135-145)
== END 2025-01-14 10:04 | disposition home or self-care (01) ==
LOC: HO.HMGCLDS 10:03
PROVIDERS: PCP Internal Medicine; Visit Provider Internal Medicine Nephrology
DX: N18.31 Chronic kidney disease, stage 3a (principal)
CPT/HCPCS: 36415; 80051; 82565; 84520

== ENCOUNTER 2025-01-16 11:39 | Outpatient (AMB) | payer MEDICARE, SELFPAY ==
--- OUTSIDE RECORDS SUMMARY | 2025-01-16 11:44 | XMS_ITS | Patient Health Record ---
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 Problem 029948316118151 Aspirin long-term use (Z79.82) Active confirmed Problem 83497385 Iron deficiency anemia, unspecified iron deficiency anemia type (D50.9) Active confirmed Vital Signs Blood pressure diastolic 11 mm Hg 09/11/2024 Height 72 in 09/11/2024 Blood pressure systolic 111 mm Hg 09/11/2024 Weight 193 lbs 09/11/2024 BMI 26.17 kg/m2 09/11/2024 Encounters Encounter Location Date Provider Diagnosis [facility] [address] [place] [address] 09/11/2024 Daryn Pimentel Jr Colon cancer screening Z12.11 and Aspirin long-term use Z79.82 [facility] [address] [place] [address] 05/30/2024 Daryn Pimentel Jr [facility] [address] [place] [address] 09/11/2024 Daryn Pimentel Jr [facility] [address] [place] [address] 09/11/2024 Daryn Pimentel Jr Assessments Encounter Date [...] OF [place] [address] [id number] REUBEN AMOS Self - patient is the insured 2 [facility] SUPPLEMENTAL PLAN [address] [place] [address] [id number] REUBEN AMOS Self - patient is the [...]
--- OUTSIDE RECORDS SUMMARY | 2025-01-16 11:44 | XMS_ITS | Encounter Summary ---
Author Organization [facility] Address [address] [place] [address] Care Team Providers Care Seed Expert Name Role Phone Jagjit Hancock Primary Care Provider Gigi price Encounter Details Date Type Department Care Team (Latest Contact Info) Description 08/16/2024 Lab Requisition [facility] - Main Lab [address] [place] [phone] Rebecca Gomez MD [address] [place] [phone] Essential (primary) hypertension; Anemia, unspecified; Cellulitis, unspecified; [...] Comprehensive metabolic panel (08/18/2024 7:18 AM EDT) [facility] Signature Sodium 132(L) 133 - 145 mmol/L LAB CHEMISTRY METHOD 08/18/2024 12:46 PM [facility] Potassium 4.4 3.5 - 5.5 mmol/L LAB CHEMISTRY METHOD 08/18/2024 12:46 PM [facility] Chloride 95(L) 96 - 110 mmol/L LAB CHEMISTRY METHOD 08/18/2024 12:46 PM [facility] CO2 27 21 - 32 mmol/L LAB CHEMISTRY METHOD 08/18/2024 12:46 PM [facility] Anion Gap 10 3 - 11 LAB CHEMISTRY METHOD 08/18/2024 12:46 PM [facility] Glucose 88 70 - 100 mg/dL LAB CHEMISTRY METHOD 08/18/2024 12:46 PM [facility] BUN 34(H) 5 - 25 mg/dL LAB CHEMISTRY METHOD 08/18/2024 12:46 PM [facility] Creatinine 1.19 0.70 - 1.30 mg/dL LAB CHEMISTRY METHOD 08/18/2024 12:46 PM [facility] eGFR 63 >=60 mL/min/1. 73m2 LAB CHEMISTRY METHOD 08/18/2024 12:46 PM [facility] Comment:Calculation based on the Chronic Kidney Disease Epidemiology Collaboration (CKD-EPI) equation refit without adjustment for race. BUN/Creatinine Ratio 28.6 LAB CHEMISTRY METHOD 08/18/2024 12:46 PM [facility] Calcium 9.7 8.5 - 10.5 mg/dL LAB CHEMISTRY METHOD 08/18/2024 12:46 PM [facility] AST (SGOT) 30 10 - 42 unit/L LAB CHEMISTRY METHOD 08/18/2024 12:46 PM [facility] ALT (SGPT) 34 10 - 60 unit/L LAB CHEMISTRY METHOD 08/18/2024 12:46 PM EDT [facility] Alkaline Phosphatase 93 42 - 121 unit/L LAB CHEMISTRY METHOD 08/18/2024 12:46 PM EDT [facility] Total Protein 7.2 6.0 - 8.0 g/dL LAB CHEMISTRY METHOD 08/18/2024 12:46 PM [facility] Albumin 3.4 3.2 - 5.0 g/dL LAB CHEMISTRY METHOD 08/18/2024 12:46 PM EDT [facility] Total Bilirubin 0.6 0.0 - 1.4 mg/dL LAB CHEMISTRY METHOD 08/18/2024 12:46 PM EDT [facility] Blood Venous blood specimen / Unknown Venipuncture / Unknown 08/18/2024 7:18 AM EDT 08/18/2024 11:03 AM EDT Rebecca Gomez MD LAB BLOOD ORDERABLES Final Resul t [facility] [address] [place] [address], [place] [phone] * (ABNORMAL) Complete blood count (08/18/2024 7:18 AM EDT) WBC 7.0 4.8 - 10.8 K/mcL LAB HEMETOLOGY METHOD 08/18/2024 11:59 AM EDT [facility] RBC 4.90 4.50 - 5.50 M/mcL LAB HEMETOLOGY METHOD 08/18/2024 11:59 AM EDT [facility] Hemoglobin 14.1 13.5 - 17.5 g/dL LAB HEMETOLOGY METHOD 08/18/2024 11:59 AM T [facility] Hematocrit 41.1(L) 42.0 - 54.0 % LAB HEMETOLOGY METHOD 08/18/2024 11:59 AM EDT [facility] MCV 83.4 79.0 - 98.0 FL LAB HEMETOLOGY METHOD 08/18/2024 11:59 AM EDT [facility] MCH 28.6 27.0 - 32.0 pcg LAB HEMETOLOGY METHOD 08/18/2024 11:59 AM EDT [facility] MCHC 34.3 32.0 - 37.0 g/dL LAB HEMETOLOGY METHOD 08/18/2024 11:59 AM EDT [facility] RDW 14.2 11.0 - 15.0 % LAB HEMETOLOGY METHOD 08/18/2024 11:59 AM EDT [facility] Platelets 266 130 - 400 K/mcL LAB HEMETOLOGY METHOD 08/18/2024 11:59 AM EDT [facility] MPV 8.9 7.0 - 11.0 FL LAB HEMETOLOGY METHOD 08/18/2024 11:59 AM EDT [facility] NRBC 0.0 <1.0 % LAB HEMETOLOGY METHOD 08/18/2024 11:59 AM T [facility] NRBC Absolute 0.00 <0.10 K/mcL LAB HEMETOLOGY METHOD 08/18/2024 11:59 AM [facility] Blood Venous blood specimen / Unknown Venipuncture / Unknown 08/18/2024 7:18 AM EDT 08/18/2024 11:03 AM EDT us Rebecca Gomez MD LAB BLOOD ORDERABLES Final Resul t [facility] [address] [place] [address], documented in this encounter Visit Diagnoses Diagnosis Essential (primary) hypertension Unspecified essential hypertension Anemia, unspecified Cellulitis, unspecified Type 2 diabetes mellitus without complications (CMS/HCC V24, CMS/HCC V28) documented in this encounter Additional Health Concerns Infection Onset Date Last Indicated Resolved Time C. difficile 08/02/2024 08/02/2024 08/26/2024 7:06 PM EDT documented as of this encounter Care Teams Seed Expert Relationship Specialty Start Date End Date Jagjit Hancock PA [address] [place] [address] [place] [phone] PCP - General Physician Monotype Mechanic 07/23/24 documented as of this encounter
--- OUTSIDE RECORDS SUMMARY | 2025-01-16 11:45 | XMS_ITS | Patient Health Record ---
[facility] Address [address] [facility] [place] [address] Care Team Providers Care Building Code Inspector Name Role Phone Marina MCDANIELS, Nubia Zelaya Primary Care Provider Un available Black, Sussy Unavailable [phone] Allergies No Known Allergies Results Component Value [...] Polyneuropathy due to type 2 diabetes mellitus (420504198) Type 2 diabetes mellitus with diabetic polyneuropathy (E11.42) Active confirmed Vital Signs Blood pressure diastolic 80 mm Hg 12/11/2024 Height 6 ft in 12/11/2024 Blood pressure systolic 122 mm Hg 12/11/2024 Weight 215 lbs 12/11/2024 BMI 29.16 kg/m2 12/11/2024 Procedures Procedure Date Ordered Date Performed Result Body Sit e 46472-SQXFLNL NAIL, 6 OR MORE 02/14/2024 N/A 97896- Debride <25 sq cm 02/14/2024 N/A 29651-HKEV SKIN LESIONS, OVER 4 02/14/2024 N/A 06912-ONYLGEM NAIL, 6 OR MORE 06/02/2024 N/A 17396-UCNL SKIN LESIONS, OVER 4 06/02/2024 N/A 45027-SZNLIFM NAIL, 6 OR MORE 09/01/2024 N/A 24397-FBOD SKIN LESIONS, OVER 4 09/01/2024 N/A 86823-HYSXWMZ NAIL, 6 OR MORE 12/11/2024 N/A 08080-NRUP SKIN LESIONS, OVER 4 12/11/2024 N/A Encounters Encounter Location Date Provider Diagnosis [address] [address] 02/14/2024 Sussy Lowery 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 ; Other hammer toe(s) (acquired), right foot M20.41 ; Type 2 diabetes mellitus with diabetic polyneuropathy E11.42 ; Tinea unguium B35.1 and Other hammer toe(s) (acquired), left foot M20.[address] [address] 06/02/2024 Sussy Lowery Type 2 diabetes mellitus with diabetic polyneuropathy E11.42 and Tinea unguium B35.[address] [address] 09/01/2024 Sussy Lowery Type 2 diabetes mellitus with diabetic polyneuropathy E11.42 ; Tinea unguium B35.1 and Tinea pedis of both feet B35.[address] [address] 12/11/2024 Sussy Lowery Type 2 diabetes mellitus with diabetic polyneuropathy E11.42 and Tinea unguium B35.[address] [address] 06/03/2024 Sussyjesus Lowery [address] [address] 08/26/2024 [address]jesus Lowery [address] [address] 09/10/2024 Sussy Lowery Assessments Encounter Date Diagnosis [...] Date *Wound Culture 12/18/2019 *Wound Culture 11/24/2021 64336-BTUIYVB NAIL, 6 OR MORE 08/25/2021 27249-ATCMPWJ NAIL, 6 OR MORE 12/18/2019 44920-ASTUZOL NAIL, 6 OR MORE 11/24/2021 69370-MFFRBQP NAIL, 6 OR MORE 02/23/2022 11760-DRLSZHM NAIL, 6 OR MORE 06/08/2022 15905-QNWNFYQ NAIL, 6 OR MORE 09/11/2022 04067-LMBBPDL NAIL, 6 OR MORE 12/11/2022 02453-NAOZITI NAIL, 6 OR MORE 09/18/2019 82192-IQXJIUI NAIL, 6 OR MORE 02/23/2020 70098-SIAXZYS NAIL, 6 OR MORE 05/13/2020 90499-FSJKDMU NAIL, 6 OR MORE 08/12/2020 03068-TAJXMQM NAIL, 6 OR MORE 11/18/2020 02703-BBQIVOM NAIL, 6 OR MORE 02/17/2021 97225-ZHNIYPT NAIL, 6 OR MORE 03/15/2023 44718-CAQTHWI NAIL, 6 OR MORE 06/21/2023 86724-QQCLEBM NAIL, 6 OR MORE 10/25/2023 28706-QCEOLDV NAIL, 6 OR MORE 02/14/2024 45557-HYAQCNX NAIL, 6 OR MORE 06/02/2024 11335-USDGFXQ NAIL, 6 OR MORE 09/01/2024 68404-GCMPHCU NAIL, 6 OR MORE 12/11/2024 85602-LJZFXAT NAIL, 6 OR MORE 03/06/2019 54772-WVKMKZY NAIL, 6 OR MORE 06/05/2019 90768-IHHNSZI NAIL, 6 OR MORE 02/21/2018 04074-BVBGYOE NAIL, 6 OR MORE 05/30/2018 84993-PRIIQLO NAIL, 6 OR MORE 08/29/2018 82306-WRITPNS NAIL, 6 OR MORE 12/05/2018 91535-WPWOCKU NAIL, 6 OR MORE 12/22/2015 19601-YSQLJBK NAIL, 6 OR MORE 03/23/2016 04088-TNWTFJF NAIL, 6 OR MORE 06/22/2016 94836-QMEOJIT NAIL, 6 OR MORE 10/05/2016 45652-YNBECMU NAIL, 6 OR MORE 01/04/2017 81084-NZSOKFC NAIL, 6 OR MORE 05/10/2017 19141-UOTDYDY NAIL, 6 OR MORE 08/09/2017 34910-OEUNAKU NAIL, 6 OR MORE 11/23/2017 83494-JREATBN NAIL, 6 OR MORE 04/17/2011 06002-NHGYGXN NAIL, 6 OR MORE 07/20/2011 20647-SRUSMKK NAIL, 6 OR MORE 08/17/2011 10533-WSYHKKU NAIL, 6 OR MORE 09/19/2011 24333-QDZLOLO NAIL, 6 OR MORE 12/25/2011 81564-DVBYBIC NAIL, 6 OR MORE 03/13/2012 27533-WLCNMXK NAIL, 6 OR MORE 06/19/2012 55358-ZRASKDT NAIL, 6 OR MORE 09/16/2012 69430-HTLIXML NAIL, 6 OR MORE 12/04/2012 89042-XCIJTTP NAIL, 6 OR MORE 03/12/2013 30806-VZTMBYW NAIL, 6 OR MORE 06/18/2013 47806-KSVHBDJ NAIL, 6 OR MORE 09/18/2013 01975-FPGWVTE NAIL, 6 OR MORE 12/18/2013 46453-NUJSBPQ NAIL, 6 OR MORE 03/19/2014 96620-GVXKUQC NAIL, 6 OR MORE 09/17/2014 11910-VMLLMXW NAIL, 6 OR MORE 12/17/2014 21776-XIRXQUO NAIL, 6 OR MORE 06/18/2014 73717-FKDGICY NAIL, 6 OR MORE 03/24/2015 18919-BTVVJJX NAIL, 6 OR MORE 06/17/2015 74050-JTOCWKD NAIL, 6 OR MORE 09/16/2015 62396-Nkerqlap Plate 06/18/2014 15039-Lmxttcil Plate 12/17/2014 38256-Vniwmegl Plate 12/18/2013 43151-Sxfdkuyz Plate 09/18/2013 83194-Nliryeiy Plate 03/12/2013 62137-Hsqlmxfm Plate 01/04/2017 69810-Afhmkwsn Plate 06/21/2023 11074- Debride <25 sq cm 02/14/2024 82777- Debride <25 sq cm 08/25/2021 86424- Debride <25 sq cm 08/12/2020 93856- Debride <25 sq cm 04/05/2020 06265- Debride <25 sq cm 05/13/2020 01818- Debride <25 sq cm 02/23/2020 20672- Debride <25 sq cm 06/08/2022 17484- Debride <25 sq cm 11/24/2021 75388- Debride <25 sq cm 12/08/2021 26327- Debride <25 sq cm 01/05/2022 13060- Debride <25 sq cm 02/23/2022 57713- Debride <25 sq cm 12/04/2012 54190- Debride <25 sq cm 12/25/2011 86569- Debride <25 sq cm 09/19/2011 46462- Debride <25 sq cm 08/17/2011 77794- Debride <25 sq cm 07/20/2011 34939- Debride <25 sq cm 12/18/2013 39101- Debride <25 sq cm 03/19/2014 15378-SKKQGOG SKIN/TISSUE 12/18/2019 54642-OLYLSVN SKIN/TISSUE 01/05/2020 46758-LQJMTLI SKIN/TISSUE 01/19/2020 96449-KCQZRCA SKIN/TISSUE 02/05/2020 92270-ZVQP SKIN LESIONS, OVER 4 09/18/19 03171-UYLZ SKIN LESIONS, OVER 4 06/05/19 92832-SBTI SKIN LESIONS, OVER 4 03/06/20 33576-FZUA SKIN LESIONS, OVER 4 12/06/19 54650-IYYY SKIN LESIONS, OVER 4 08/30/19 30958-BNCE SKIN LESIONS, OVER 4 05/30/19 49268-PAPQ SKIN LESIONS, OVER 4 01/05/20 23157-TJIK SKIN LESIONS, OVER 4 02/22/20 18 90141-GPVW SKIN LESIONS, OVER 4 11/24/19 20939-WSGB SKIN LESIONS, OVER 4 05/10/20 75749-OOHW SKIN LESIONS, OVER 4 08/10/19 16054-REQP SKIN LESIONS, OVER 4 02/24/20 62162-PAFA SKIN LESIONS, OVER 4 11/25/19 59956-YIDQ SKIN LESIONS, OVER 4 06/08/19 61624-RAEJ SKIN LESIONS, OVER 4 09/12/19 85546-BJVF SKIN LESIONS, OVER 4 03/15/20 68608-SUGO SKIN LESIONS, OVER 4 12/12/19 64877-DRCG SKIN LESIONS, OVER 4 02/23/20 47609-NJZN SKIN LESIONS, OVER 4 12/18/19 65916-LAAD SKIN LESIONS, OVER 4 05/13/20 50566-QFEX SKIN LESIONS, OVER 4 08/13/19 29201-XHCN SKIN LESIONS, OVER 4 11/19/19 22724-QZRC SKIN LESIONS, OVER 4 08/26/19 44095-JSCF SKIN LESIONS, OVER 4 02/18/20 75647-QMGU SKIN LESIONS, OVER 4 02/14/20 53020-ZBLI SKIN LESIONS, OVER 4 06/02/19 04331-NLIZ SKIN LESIONS, OVER 4 06/21/19 95876-AMKZ SKIN LESIONS, OVER 4 10/25/19 28967-FREQ SKIN LESIONS, OVER 4 12/12/19 14309-YJKX SKIN LESIONS, OVER 4 09/02/19 23726-SOBN SKIN LESIONS, 2 TO 4 06/22/19 12167-XOIJ SKIN LESIONS, 2 TO 4 10/06/19 15837-KYPP SKIN LESIONS, 2 TO 4 03/23/20 16 62990-SYEM SKIN LESIONS, 2 TO 4 12/22/19 16 61699-ECOV SKIN LESIONS, 2 TO 4 12/18/19 15 82034-GPNB SKIN LESIONS, 2 TO 4 03/24/20 15 11937-TLWO SKIN LESIONS, 2 TO 4 09/16/19 16 38577-WYLK SKIN LESIONS, 2 TO 4 06/17/19 16 Next Appt Details Provider Name:Sussy Lowery , 03/12/2025 02:45:00 PM, [address] [place], [address], Insurance Providers Payer Name Payer Address Payer Phone Subscriber Number Group Number Insured Name Patient Relationship to Insured Coverage Start Date Coverage End Date Medicare National Govt [facility] [address] [place] [address] [id number] Tobin Bey Self - patient is the insured [employer] Secondary to Medicare [address] [place] [address] [id number] 1 Tobin Bey Self - patient is [...]
--- NOTE | 2025-01-16 12:19 | HO.NEPHOV ---
Vital Signs 01/16/25 12:20 Height 5 ft 11 in Weight 183 lb 4 oz BMI 25.6 BP 120/80 Blood Pressure Location Rt brachial Position Sitting Pulse 71 Pulse Source Pulse Oximeter Pulse Oximetry (%) 97 Oxygen Delivery Method Room Air Intake Visit Reasons: 3 MO FU-LVM Disabilities Caregiver Required: No Accompanied by: Self / Same As Patient Allergies No Known Allergies Allergy (Verified 01/16/25 12:19) HPI Comments Details: I had the pleasure of seeing oTbin who is a 79-year old male, with diabetes mellitus since 2010 along with , dyslipidemia ,hypertension and chronic wounds in buttocks, for CKD as well as hypertension. He denies any retinopathy. He is currently on Ozempic 1 mg once a week for his diabetes mellitus. He takes metoprolol for control of his blood pressure. He does not take excess sodium in the diet. patient denied any NSAID use, no urinary symptoms. . [facility] ulcers in his buttocks. He denies CAD, CVA, CHF. His serum creatinine is stable [facility] Medical History (Updated 01/16/25 @ 12:31 by Waldo Padron MD) Decreased glomerular filtration rate (GFR) Elevated serum creatinine Ulcer of left heel Chronic ulcer of buttock Hx of adenomatous polyp of colon Tinea unguium Anemia Elevated vitamin B12 level Osteoarthritis of left hip Dyslipidemia Eczema Essential hypertension Type 2 diabetes mellitus without complication, without long-term current use of insulin Surgical History Hx of colonoscopy History of cataract surgery H/O shoulder replacement History of total hip replacement Family History Father Smoker Emphysema, unspecified Mother HTN (hypertension) Diabetes mellitus Cancer Brother Diabetes mellitus Social History Housing: House Are you a primary career services assistant to a significant other at home: No Do you presently have visiting nurse or other home services: No Alcohol intake: current Patient Tobacco Use Status: Never used Tobacco e-Cigarette/Vaping Use: Never Used service: No Current occupational status: retired Cognitive needs: No Hearing needs: No Vision needs: No Review of Systems Const All systems reviewed & are unremarkable except as noted in HPI and below Physical Exam Vital Signs: Last Vital Signs Pulse 71 08/22/25 12:20 BP 120/80 01/16/25 12:20 Pulse Ox 97 01/16/25 12:20 Oxygen Delivery Method Room Air 01/16/25 12:20 BMI result Body Mass Index 25.6 Const General: comfortable and no acute distress Orientation/consciousness: patient oriented x3 HEENT Head: Yes normocephalic Mouth: Normal oral and palatal mucosa present Eyes EOM: EOMs intact bilaterally Neck Neck: Yes supple Resp Auscultation: clear to auscultation bilaterally Cardio Jugular venous distension: no JVD Rate: regular rate GI Palpation (GI): Soft to palpation Auscultation: normal bowel sounds General: Yes no CVA tenderness Back/Spine/Pelvis Back: no CVA tenderness Skin General skin exam: no rashes or lesions noted Neuro General: patient oriented x3 and moves all extremities Extrem General: Yes no pedal edema Results Reviewed Nephrology Results: Hgb, (14.0-18.0) 14.1 g/dl 12/06/24 WBC, (4.8-10.8) 6.0 X10*3/uL 12/06/24 Plt Count, (160-400) 206 X10*3/uL 12/06/24 Sodium, (135-145) 139 mmol/L 01/14/25 Potassium, (3.3-5.1) 3.9 mmol/L 01/14/25 Chloride, (96-108) 99 mmol/L 01/14/25 Carbon Dioxide, (22-29) 27 mmol/L 01/14/25 BUN, (9-16) 29 mg/dL H 01/14/25 Creatinine, (0.5-1.4) 1.35 mg/dL 01/14/25 Calcium, (8.4-10.2) 9.7 mg/dL 12/06/24 Urine Protein, (Neg-Trace) Negative mg/dL 10/15/24 Urine Creatinine 100.18 mg/dL 10/15/24 Protein/Creatinin Ratio, (<0.2) 0.08 10/15/24 Renal US 10/15/24 Assessment & Plan Assessment & Plan (1) Essential hypertension: Code(s): I10 - Essential (primary) hypertension Category: Medical (2) CKD stage 3a, GFR 45-59 ml/min: Code(s): N18.31 - Chronic kidney disease, stage 3a Category: Medical (3) Renal calculi: Code(s): N20.0 - Calculus of kidney Category: Medical Plan Tobin had MILADIS likely due to tubular injury which has resolved. He most likely had been having altered autoregulation within the kidney with resultant tubular injury. I have asked him to remain off metformin and losartan for now. He has been started on Jardiance. His renal USS showed renal calculi.He should avoid NSAID's. Answered all questions. F/U appointment given. Orders: Orders Creatinine 4 Months I10 - Essential (primary) hypertension, N18.31 - Chronic kidney disease, stage 3a, N20.0 - Calculus of kidney Blood Urea Nitrogen 4 Months I10 - Essential (primary) hypertension, N18.31 - Chronic kidney disease, stage 3a, N20.0 - Calculus of kidney Electrolytes 4 Months I10 - Essential (primary) hypertension, N18.31 - Chronic kidney disease, stage 3a, N20.0 - Calculus of kidney Coding Level of Care Code Est Pt Level 4 (32753) Diagnoses Essential hypertension I10 CKD stage 3a, GFR 45-59 ml/min N18.31 Renal calculi N20.0
[2025-01-16 12:20] VITALS: BP 120/80; PULSE 71; O2SAT 97; BMI 25.6
== END 2025-01-16 12:37 | disposition home or self-care (01) ==
LOC: HO.HKA 11:40
PROVIDERS: PCP Internal Medicine; Visit Provider Internal Medicine Nephrology
DX: I10 Essential (primary) hypertension (principal); N18.31 Chronic kidney disease, stage 3a; N20.0 Calculus of kidney
CPT/HCPCS: 99214

== ENCOUNTER → 2025-01-16 11:39 | Outpatient (BNVA) | payer MEDICARE, SELFPAY | PROVIDERS: PCP Internal Medicine; Visit Provider Internal Medicine Nephrology | DX: I12.9 Hypertensive chronic kidney disease with stage 1 through stage 4 chronic kidney disease, or unspecified chronic kidney disease (principal); N18.31 Chronic kidney disease, stage 3a; N20.0 Calculus of kidney | CPT/HCPCS: 99212 ==

== ENCOUNTER 2025-04-03 06:50 | Outpatient (REF) | payer MEDICARE, SELFPAY ==
--- OUTSIDE RECORDS SUMMARY | 2024-09-01 11:00 | XMS_ITS ---
Author [facility] Address [address] [facility] [place] [address] Care Team Providers Care Cover Assembler Name Role Phone Marina MCDANIELS, Nubia Zelaya Primary Care Provider Un available Black, Sussy Unavailable [phone] Medications Medication SIG (Take, Route, Frequency, Duration) [...] Active Encounters Encounter Location Date Provider Diagnosis [facility] [address] [address] 09/01/2024 Sussy Lowery Plan Of Treatment Next Appt Details Provider Name:Sussy Lowery , 07/06/2025 02:45:00 PM, [address] [place] [address], [phone], Progress Notes * Umm BEY:1945 ( 79 yo M)Acc No.[id number]:09/01/2024 Progress Note Patient: Tobin MCKEON Provider: Lauro Lowery DPM :1945 A ge:79 Y S ex:Male Date:09/01/2024 Address:[address] [place] [address] [place], [place] Pcp:Jayjay Graham Subjective: * Chief Complaints: * [...] 0 09/01/2024 Generated for Tu schrader/Yang/Jean on: 06/03/2024 06:53 AM EST
--- OUTSIDE RECORDS SUMMARY | 2024-09-04 10:00 | XMS_ITS ---
Author Organization [facility] Address [address] [place] [address] Care Team Providers Care Lieutenant Ballistics Name Role Phone Marina MCDANIELS, Nubia Zelaya Primary Care Provider Un available Sebastián Sussy Unavailable [phone] Encounters Encounter Location Date Provider Diagnosis [address] [address] 09/04/2024 Sussy Sebastián Plan Of Treatment Next Appt Details Provider Name:Sussy Lowery , 07/06/2025 02:45:00 PM, [address] [place] [address], [phone], Progress Notes * Tobin BEYDOB:1945 ( 79 yo M)Acc No.[id number]:09/04/2024 Progress Note Patient: Tobin MCKEON Provider: Evon [...] 0 09/04/2024 Generated for Tu Doyle on: 06/03/2024 06:53 AM EST
--- OUTSIDE RECORDS SUMMARY | 2025-04-03 06:53 | XMS_ITS | Encounter Summary ---
Author Organization [facility] Address [address] [place] [address] Care Team Providers Care Rn Resource Nurse Name Role Phone Jagjit Hancock Primary Care Provider Gigi price Encounter Details Date Type Department Care Team (Latest Contact Info) Description 08/08/2024 Lab Requisition [facility] - Main Lab [address] [place] [phone] Rebecca Gomez MD [address] [place] [phone] Essential (primary) hypertension; Anemia, unspecified; Cellulitis, unspecified; [...] Comprehensive metabolic panel (08/11/2024 6:40 AM EDT) [facility] Signature Sodium 134 133 - 145 [...] refit without adjustment for race. BUN/Creatinine Ratio 25.7 LAB [...] LAB CHEMISTRY METHOD 08/11/2024 11:47 AM EDT [facility] Alkaline Phosphatase 86 42 - 121 unit/L LAB CHEMISTRY METHOD 08/11/2024 11:47 AM EDT [facility] Total Protein 6.8 6.0 - 8.0 g/dL LAB CHEMISTRY METHOD 08/11/2024 11:47 AM T [facility] Albumin 3.3 3.2 - 5.0 g/dL LAB CHEMISTRY METHOD 08/11/2024 11:47 AM EDT [facility] Total Bilirubin 0.5 0.0 - 1.4 mg/dL LAB CHEMISTRY METHOD 08/11/2024 11:47 AM T [facility] Blood Venous blood specimen / Unknown Venipuncture / Unknown 08/11/2024 6:40 AM EDT 08/11/2024 11:02 AM EDT Rebecca Gomez MD LAB BLOOD ORDERABLES Final Resul t [facility] [address] [place] [address], * (ABNORMAL) Complete blood count (08/11/2024 6:40 AM EDT) WBC 4.7(L) 4.8 - 10.8 K/mcL LAB HEMETOLOGY METHOD 08/11/2024 11:54 AM T [facility] RBC 4.50 4.50 - 5.50 M/mcL LAB HEMETOLOGY METHOD 08/11/2024 11:54 AM EDT [facility] Hemoglobin 12.6(L) 13.5 - 17.5 g/dL LAB HEMETOLOGY METHOD 08/11/2024 11:54 AM [facility] Hematocrit 37.8(L) 42.0 - 54.0 % LAB HEMETOLOGY METHOD 08/11/2024 11:54 AM EDT [facility] MCV 84.6 79.0 - 98.0 FL LAB HEMETOLOGY METHOD 08/11/2024 11:54 AM EDT [facility] MCH 28.2 27.0 - 32.0 pcg LAB HEMETOLOGY METHOD 08/11/2024 11:54 AM EDT [facility] MCHC 33.3 32.0 - 37.0 g/dL LAB HEMETOLOGY METHOD 08/11/2024 11:54 AM EDT [facility] RDW 13.9 11.0 - 15.0 % LAB HEMETOLOGY METHOD 08/11/2024 11:54 AM EDT [facility] Platelets 231 130 - 400 K/mcL LAB HEMETOLOGY METHOD 08/11/2024 11:54 AM EDT [facility] MPV 9.6 7.0 - 11.0 FL LAB HEMETOLOGY METHOD 08/11/2024 11:54 AM EDT [facility] NRBC 0.0 <1.0 % LAB HEMETOLOGY METHOD 08/11/2024 11:54 AM EDT [facility] NRBC Absolute 0.00 <0.10 K/mcL LAB HEMETOLOGY METHOD 08/11/2024 11:54 AM EDT [facility] Blood Venous blood specimen / Unknown Venipuncture / Unknown 08/11/2024 6:40 AM EDT 08/11/2024 11:02 AM EDT us Rebecca Gomez MD LAB BLOOD ORDERABLES Final Resul t [facility] [address] [place] [address], documented in this encounter Visit Diagnoses Diagnosis Essential (primary) hypertension Unspecified essential hypertension Anemia, unspecified Cellulitis, unspecified Type 2 diabetes mellitus without complications (CMS/HCC V24, CMS/HCC V28) documented in this encounter Additional Health Concerns Infection Onset Date Last Indicated Resolved Time C. difficile 08/02/2024 08/02/2024 08/26/2024 7:06 PM EDT documented as of this encounter Care Teams Rn Resource Nurse Relationship Specialty Start Date End Date Jagjit Hancock PA [address] [place] [phone] PCP - General Physician Operator Receptionist 07/23/24 documented as of this encounter
--- OUTSIDE RECORDS SUMMARY | 2025-04-03 06:53 | XMS_ITS | Encounter Summary ---
Author Organization [facility] Address [address] [place] [address] Care Team Providers Care Film Washer Name Role Phone Jagjit Hancock Primary Care Provider Gigi price Encounter Details Date Type Department Care Team (Latest Contact Info) Description 08/16/2024 Lab Requisition [facility] - Main Lab [address] [place] [phone] Rebecca Gomez MD [address] [place] [phone] Essential (primary) hypertension; Anemia, unspecified; Cellulitis, unspecified; [...] Comprehensive metabolic panel (08/18/2024 7:18 AM EDT) [facility] Signature Sodium 132(L) 133 - 145 mmol/L [...] [facility] Comment:Calculation based on the Chronic [...] LAB CHEMISTRY METHOD 08/18/2024 12:46 PM EDT [facility] Alkaline Phosphatase 93 42 - 121 unit/L LAB CHEMISTRY METHOD 08/18/2024 12:46 PM EDT [facility] Total Protein 7.2 6.0 - 8.0 g/dL LAB CHEMISTRY METHOD 08/18/2024 12:46 PM [facility] Albumin 3.4 3.2 - 5.0 g/dL LAB CHEMISTRY METHOD 08/18/2024 12:46 PM EDT [facility] Total Bilirubin 0.6 0.0 - 1.4 mg/dL LAB CHEMISTRY METHOD 08/18/2024 12:46 PM EDT [facility] Blood Venous blood specimen / Unknown Venipuncture / Unknown 08/18/2024 7:18 AM EDT 08/18/2024 11:03 AM EDT Rebecca Gomez MD LAB BLOOD ORDERABLES Final Resul t [facility] [address] [place] [address], [place] [phone] * (ABNORMAL) Complete blood count (08/18/2024 7:18 AM EDT) WBC 7.0 4.8 - 10.8 K/mcL LAB HEMETOLOGY METHOD 08/18/2024 11:59 AM EDT [facility] RBC 4.90 4.50 - 5.50 M/mcL LAB HEMETOLOGY METHOD 08/18/2024 11:59 AM EDT [facility] Hemoglobin 14.1 13.5 - 17.5 g/dL LAB HEMETOLOGY METHOD 08/18/2024 11:59 AM T [facility] Hematocrit 41.1(L) 42.0 - 54.0 % LAB HEMETOLOGY METHOD 08/18/2024 11:59 AM EDT [facility] MCV 83.4 79.0 - 98.0 FL LAB HEMETOLOGY METHOD 08/18/2024 11:59 AM EDT [facility] MCH 28.6 27.0 - 32.0 pcg LAB HEMETOLOGY METHOD 08/18/2024 11:59 AM EDT [facility] MCHC 34.3 32.0 - 37.0 g/dL LAB HEMETOLOGY METHOD 08/18/2024 11:59 AM EDT [facility] RDW 14.2 11.0 - 15.0 % LAB HEMETOLOGY METHOD 08/18/2024 11:59 AM EDT [facility] Platelets 266 130 - 400 K/mcL LAB HEMETOLOGY METHOD 08/18/2024 11:59 AM EDT [facility] MPV 8.9 7.0 - 11.0 FL LAB HEMETOLOGY METHOD 08/18/2024 11:59 AM EDT [facility] NRBC 0.0 <1.0 % LAB HEMETOLOGY METHOD 08/18/2024 11:59 AM T [facility] NRBC Absolute 0.00 <0.10 K/mcL LAB HEMETOLOGY METHOD 08/18/2024 11:59 AM [facility] Blood Venous blood specimen / Unknown Venipuncture / Unknown 08/18/2024 7:18 AM EDT 08/18/2024 11:03 AM EDT us Rebecca Gomez MD LAB BLOOD ORDERABLES Final Resul t [facility] [address] [place] [address], documented in this encounter Visit Diagnoses Diagnosis Essential (primary) hypertension Unspecified essential hypertension Anemia, unspecified Cellulitis, unspecified Type 2 diabetes mellitus without complications (CMS/HCC V24, CMS/HCC V28) documented in this encounter Additional Health Concerns Infection Onset Date Last Indicated Resolved Time C. difficile 08/02/2024 08/02/2024 08/26/2024 7:06 PM EDT documented as of this encounter Care Teams Film Washer Relationship Specialty Start Date End Date Jagjit Hancock PA [address] [place] [phone] PCP - General Physician Mycologist 07/23/24 documented as of this encounter
--- OUTSIDE RECORDS SUMMARY | 2025-04-03 06:53 | XMS_ITS | Encounter Summary ---
Author Organization [facility] Address [address] [place] [address] Care Team Providers Care Mails Supervisor Name Role Phone Jagjit Hancock Primary Care Provider Gigi price Encounter Details Date Type Department Care Team (Latest Contact Info) Description 08/02/2024 Lab Requisition [facility] - Main Lab [address] [place] [phone] Rebecca Gomez MD [address] [place] [phone] Essential (primary) hypertension; Anemia, unspecified; Cellulitis, unspecified; [...] PM [facility] Comment:Calculation based on the Chronic Kidney Disease Epidemiology Collaboration (CKD-EPI) equation refit without adjustment for race. BUN/Creatinine Ratio 32.4 LAB CHEMISTRY METHOD 08/04/2024 12:15 PM [facility] Calcium 9.6 8.5 - 10.5 mg/dL LAB CHEMISTRY METHOD 08/04/2024 12:15 PM [facility] AST (SGOT) 18 10 - 42 unit/L LAB CHEMISTRY METHOD 08/04/2024 12:15 PM [facility] ALT (SGPT) 19 10 - 60 unit/L LAB CHEMISTRY METHOD 08/04/2024 12:15 PM EDT [facility] Alkaline Phosphatase 83 42 - 121 unit/L LAB CHEMISTRY METHOD 08/04/2024 12:15 PM EDT [facility] Total Protein 6.9 6.0 - 8.0 g/dL LAB CHEMISTRY METHOD 08/04/2024 12:15 PM [facility] Albumin 3.3 3.2 - 5.0 g/dL LAB CHEMISTRY METHOD 08/04/2024 12:15 PM EDT [facility] Total Bilirubin 0.5 0.0 - 1.4 mg/dL LAB CHEMISTRY METHOD 08/04/2024 12:15 PM T [facility] Blood Venous blood specimen / Unknown Venipuncture / Unknown 08/04/2024 8:03 AM EDT 08/04/2024 10:52 AM EDT Rebecca Gomez MD LAB BLOOD ORDERABLES Final Resul t [facility] [address] [place] [address], * (ABNORMAL) Complete blood count (08/04/2024 8:03 AM EDT) WBC 6.9 4.8 - 10.8 K/mcL LAB HEMETOLOGY METHOD 08/04/2024 11:38 AM EDT [facility] RBC 4.60 4.50 - 5.50 M/mcL LAB HEMETOLOGY METHOD 08/04/2024 11:38 AM EDT [facility] Hemoglobin 12.8(L) 13.5 - 17.5 g/dL LAB HEMETOLOGY METHOD 08/04/2024 11:38 AM T [facility] Hematocrit 39.0(L) 42.0 - 54.0 % LAB HEMETOLOGY METHOD 08/04/2024 11:38 AM EDT [facility] MCV 85.2 79.0 - 98.0 FL LAB HEMETOLOGY METHOD 08/04/2024 11:38 AM EDT [facility] MCH 27.9 27.0 - 32.0 pcg LAB HEMETOLOGY METHOD 08/04/2024 11:38 AM EDT [facility] MCHC 32.8 32.0 - 37.0 g/dL LAB HEMETOLOGY METHOD 08/04/2024 11:38 AM EDT [facility] RDW 13.9 11.0 - 15.0 % LAB HEMETOLOGY METHOD 08/04/2024 11:38 AM EDT [facility] Platelets 281 130 - 400 K/mcL LAB HEMETOLOGY METHOD 08/04/2024 11:38 AM EDT [facility] MPV 9.3 7.0 - 11.0 FL LAB HEMETOLOGY METHOD 08/04/2024 11:38 AM EDT [facility] NRBC 0.0 <1.0 % LAB HEMETOLOGY METHOD 08/04/2024 11:38 AM EDT [facility] NRBC Absolute 0.00 <0.10 K/mcL LAB HEMETOLOGY METHOD 08/04/2024 11:38 AM [facility] Blood Venous blood specimen / Unknown Venipuncture / Unknown 08/04/2024 8:03 AM EDT 08/04/2024 10:52 AM EDT us Rebecca Gomez MD LAB BLOOD ORDERABLES Final Resul t [facility] [address] [place] [address], documented in this encounter Visit Diagnoses Diagnosis Essential (primary) hypertension Unspecified essential hypertension Anemia, unspecified Cellulitis, unspecified Type 2 diabetes mellitus without complications (CMS/HCC V24, CMS/HCC V28) documented in this encounter Additional Health Concerns Infection Onset Date Last Indicated Resolved Time C. difficile 08/02/2024 08/02/2024 08/26/2024 7:06 PM EDT C. difficile Rule-Out 08/03/2024 08/02/20242024 11:45 AM EDT documented as of this encounter Care Teams Mails Supervisor Relationship Specialty Start Date End Date Jagjit Hancock PA [address] [place] [address] [place] [id number] PCP - General Physician Rn Interventional 07/23/24 documented as of this encounter
--- OUTSIDE RECORDS SUMMARY | 2025-04-03 06:53 | XMS_ITS | Patient Health Record ---
Author Organization [facility] Address [address] [place] [address] Care Team Providers Care Change Control Analyst Name Role Phone Marina MCDANIELS, Nubia Primary [...] Problem Status W/U Status Risk Notes Problem Colon cancer screening (869378228) Colon cancer screening (Z12.11) Active confirmed Problem Long-term current use of antiplatelet drug (760300720916176 ) superintendent terminal (current) use of aspirin (Z79.82) Active confirmed Problem Long-term current use of aspirin (839745437678602 ) Aspirin long-term use (Z79.82) Active confirmed Problem Iron deficiency anemia (60867274) Iron deficiency anemia, unspecified iron deficiency anemia type (D50.9) Active confirmed Vital Signs Blood pressure diastolic 11 mm Hg 09/11/2024 Height 72 in 09/11/2024 Blood pressure systolic 111 mm Hg 09/11/2024 Weight 193 lbs 09/11/2024 BMI 26.17 kg/m2 09/11/2024 Encounters Encounter Location Date [facility] [address] [place] [address] 09/11/2024 Daryn Pimentel Jr Colon cancer screening Z12.11 and Aspirin long-term use Z79.82 [facility] [address] [place] [address] 05/30/2024 Daryn Pimentel Jr [facility] [address] [place] [address] 09/11/2024 Daryn Pimentel Jr [facility] [address] [place] [address] 09/11/2024 Daryn Pimentel Jr Assessments Encounter Date [...] Date MEDICARE OF [place] [address] [place] [address] [id number] JULIO CREUBEN NIELSON Self - patient is the insured 2 [facility] SUPPLEMENTAL PLAN [address] [place] [id number] REUBEN AMOS Self - patient is the [...]
--- OUTSIDE RECORDS SUMMARY | 2025-04-03 06:54 | XMS_ITS | Encounter Summary ---
Author Organization [facility] Address [address] [place] [address] Care Team Providers Care Setter Induction Heating Equipment Name Role Phone Jagjit Hancock Primary Care Provider Gigi price Encounter Details Date Type Department Care Team (Late st Contact Info) Description 08/03/[address] [facility] - Main Lab [address] [place] [phone] Mary Cotter PA [address] [place] [id number] Diarrhea, unspecified Social History Tobacco Use Types [...] LAB MICROBIOLOGY METHOD 08/03/2024 12:41 PM EDT [facility] ([facility]) [facility] Comment: CRITICAL RESULT POSITIVE FOR TOXIN PRODUCING CLOSTRIDIOIDES DIFFICILE, NO ADDITIONAL TESTING IS NECESSARY. REPEAT SAMPLES SHOULD NOT BE SUBMITTED FOR TEST OF CURE. Stool Rectum structure / Unknown Non-blood Collection / Unknown 08/02/2024 7:40 PM EST 08/03/2024 11:45 AM EDT [facility] MICROBIOLOGY - GENERAL ORD ERABLES Final Result Performing Organization Address City/[facility]/ZIP Co de Phone Number [facility] [address] [place] [address], [place] [phone] * Clostridium difficile toxin (08/02/2024 7:40 PM EST) C difficile Toxins A+B, EIA 08/03/2024 11:45 AM EDT [facility] Comment:Refer to C. difficil e PCR assay for results. Stool Rectum structure / Unknown Non-blood Collection / Unknown 08/02/2024 7:40 PM EST 08/03/2024 10:19 AM EDT [facility] MICROBIOLOGY - GENERAL ORD ERABLES Final Result Performing Organization Address [facility] Co de Phone Number [facility] [address] [place] [address], [place] [phone] documented in this encounter Visit Diagnoses Diagnosis Diarrhea, unspecified documented in this encounter Additional Health Concerns Infection Onset Date Last Indicated Resolved Time C. difficile 08/02/2024 08/02/2024 08/26/2024 7:06 PM EDT C. difficile Rule-Out 08/03/2024 08/02/20242024 11:45 AM EDT documented as of this encounter Care Teams Setter Induction Heating Equipment Relationship Specialty Start Date End Date Jagjit Hancock PA [address] [place] [address] PCP - General Physician Spring Tier 07/23/24 documented as of this encounter
--- OUTSIDE RECORDS SUMMARY | 2025-04-03 06:54 | XMS_ITS | Patient Health Record ---
[facility] Address [address] [place] [address] Care Team Providers Care Oven Stripper Name Role Phone Marina MCDANIELS, Nubia Zelaya Primary Care Provider Un available Black, Sussy Unavailable [phone] Allergies No Known Allergies Results Component Value Reference Range Notes HEMOGLOBIN A1C (GLYCOHEMOGLO BIN) Reviewed date:06/02/2024 03:54:41 PM Interpretation: Performing Lab: Notes/Report: HEMOGLOBIN A1C % (HH) 5.8 HEMOGLOBIN A1C (GLYCOHEMOGLO BIN) Reviewed date:09/01/2024 01:04:59 PM Interpretation: Performing Lab: Notes/Report: HEMOGLOBIN A1C % (HH) 6.0 HEMOGLOBIN A1C (GLYCOHEMOGLO BIN) Reviewed date:03/12/2025 03:27:21 PM Interpretation: Performing Lab: Notes/Report: HEMOGLOBIN A1C % (HH) 6.6 Reason For Referral No Information Medications Medication SIG (Take, Route, Frequency, Duration) Notes Start Date End Date Status Ozempic Active Mupirocin 2 % External; Duration: 30 Days Active Naftifine HCl 2 % 1 application Externally Apply a thin layer to skin, even between toes, twice a day; Duration: 30 days Active Ciclopirox Olamine 0.77 % 1 application to affected area Externally Twice a day; Duration: 30 days 09/10/2024 Active Extra Depth Orthopedic Shoes (1 Pair) with Customized Heat Molded Multidensity Innersoles (3 Pair) as directed Dx: NIDDM/Polyneuropathy (E11.42), Hammertoe Foot Deformity (M20.41,M20.42), Preulcerative Skin Lesion(s) (L85.1 10/25/2023 Active Betadine 10 % Apply a light layer to affected area on foot as needed Externally 3 time(s) a day; Duration: 10 days 11/19/2023 Active Iron 325 (65 Fe) MG 1 tablet Orally Once a day Active Bactrim DS 800-160 MG 1 tablet Orally Tw ice a day; Duration: 10 day(s) 12/18/2019 Not-Taking Cipro 500 MG 1 tablet Orally ever y 12 hrs; Duration: 10 day(s) 01/19/2020 Not-Taking Bactrim DS 800-160 MG 1 tablet Orally Tw ice a day; Duration: 10 day(s) 03/19/2020 Not-Taking sAXagliptin HCl Not- Taking Alogliptin Benzoate 25 MG Orally Not-Taking traMADol HCl Not-Erick ing Ciclopirox Olamine 0.77 % 1 application Externally Twice a day; Duration: 30 days 09/18/2019 Not-Taking Trulicity 0.75 MG/0.5ML as directed Subcutaneous Not-Taking Losartan Potassium N ot-Taking Bactrim DS 800-160 MG 1 tablet Orally Tw ice a day; Duration: 10 day(s) 11/24/2021 Not-Taking Mupirocin 2 % 1 application Externally Once a day; Duration: 30 days 11/24/2021 Not-Taking Tacrolimus 0.1 % 1 application Externally Once a day Not-Taking metFORMIN HCl Not-Ta greg Extra Depth Orthopedic Shoes (1 Pair) with [...] (M20.41,M20.42), Preulcerative Skin Lesion(s) (L85.1 02/21/2018 Not-Taking Meloxicam 15 MG Orally Not- Taking Extra-Depth Diabetic Shoes with 3 Pair Custom heat-molded multi-density innersoles . for 1 year . Dx:hammerotes and calloused lesions; Duration: . 12/17/2014 Not-Taking Extra Depth Orthopedic Shoes (1 Pair) with Customized Heat Molded Multidensity Innersoles (3 Pair) as directed Dx: NIDDM/Polyneuropathy (E11.42), Hammertoe Foot Deformity (M20.41,M20.42), Preulcerative Skin Lesion(s) (L85.1 09/11/2022 Not-Taking Extra Depth Orthopedic Shoes (1 Pair) with Customized Heat Molded Multidensity Innersoles (3 Pair) as directed Dx: NIDDM/Polyneuropathy (E11.42), Hammertoe Foot Deformity (M20.41,M20.42), Preulcerative Skin Lesion(s) (L85.1 12/22/2015 Not-Taking Ciclopirox Olamine 0.77 % 1 application Externally Twice a day; Duration: 30 days 08/25/2021 Not-Taking Januvia 50 MG 1 tablet Orally Once a day Active Ammonium Lactate 12 % 1 application Externally Twice a day; Duration: 30 days Not-Taking CeleBREX 200 MG Orally Not- Taking Extra Depth Orthopedic Shoes (1 Pair) with Customized Heat Molded Multidensity Innersoles (3 Pair) Dx: NIDDM/Polyneuropathy (E11.42), Hammertoe Foot Deformity (M20.41,M20.42), Preulcerative Skin Lesion(s) (L85.1); Duration: 365 days 03/12/2025 Active hydrALAZINE HCl 75mg 1 tablet Orally 3 times a day Not-Taking Ciclopirox Olamine 0.77% external Apply to effected areas twice a day; Duration: 30 days 12/18/2013 Not-Taking Extra Depth Orthopedic Shoes (1 Pair) with Customized Heat Molded Multidensity Innersoles (3 Pair) as directed Dx: NIDDM/Polyneuropathy (E11.42), Hammertoe Foot Deformity (M20.41,M20.42), Preulcerative Skin Lesion(s) (L85.1 08/25/2021 Not-Taking OxyCONTIN Not-Taking hydroCHLOROthiazide Active Extra Depth Orthopedic Shoes (1 Pair) with Customized Heat Molded Multidensity Innersoles (3 Pair) as directed Dx: NIDDM/Polyneuropathy (E11.42), Hammertoe Foot Deformity (M20.41,M20.42), Preulcerative Skin Lesion(s) (L85.1 01/11/2017 Not-Taking Spironolactone Activ e Naproxen 500 MG 1 tablet as needed Orally every 12 hrs Not-Taking Extra-Depth Diabetic Shoes with 3 Pair Custom heat-molded multi-density innersoles Not-Taking Rosuvastatin Calcium Active Metoprolol & Diet Manage Prod Active Cipro 500 MG 1 tablet Orally ever y 12 hrs; Duration: 10 day(s) 12/22/2019 Not-Taking Immunizations Vaccine Route Administration Date Status Comme nts Influenza Unknown 03/23/2016 Pending Influenza Unknown 02/12/2017 Administered Influenza Unknown 03/28/2018 Administered Influenza Unknown 03/28/2019 Administered Influenza Unknown 02/11/2020 Administered Influenza Unknown 06/28/2022 Administered Influenza Unknown 01/27/2024 Administered Influenza Unknown 01/26/2025 Administered COVID-19 Moderna Vaccine Unknown 11/18/2020 Administere [...] Problem Acquired hammer toe of right foot (6327856263306392 ) Other hammer toe(s) (acquired), right foot (M20.41) Active confirmed Problem Acquired hammer toe of left foot (7108047836830858 ) Other hammer toe(s) (acquired), left foot (M20.42) Active confirmed Problem Polyneuropathy due to type 2 diabetes mellitus (514950787) Type 2 diabetes mellitus with diabetic polyneuropathy (E11.42) Active confirmed Vital Signs Blood pressure diastolic 80 mm Hg 03/12/2025 Height 6 ft in 03/12/2025 Blood pressure systolic 120 mm Hg 03/12/2025 Weight 192 lbs 03/12/2025 BMI 26.04 kg/m2 03/12/2025 Procedures Procedure Date Ordered Date Performed Result Body Sit e 31519-JMYRHLJ NAIL, 6 OR MORE 06/02/2024 N/A 22001-VHJL SKIN LESIONS, OVER 4 06/02/2024 N/A 82015-XBUFGEF NAIL, 6 OR MORE 09/01/2024 N/A 25958-QIOJ SKIN LESIONS, OVER 4 09/01/2024 N/A 75916-BNSNIKX NAIL, 6 OR MORE 12/11/2024 N/A 47937-FDTN SKIN LESIONS, OVER 4 12/11/2024 N/A 40318-IEKBLCJ NAIL, 6 OR MORE 03/12/2025 N/A 55935-AQID SKIN LESIONS, OVER 4 03/12/2025 N/A Encounters Encounter Location Date Provider Diagnosis [address] [address] 06/02/2024 Sussy Black Type 2 diabetes mellitus with diabetic polyneuropathy E11.42 and Tinea unguium B35.[address] [address] 09/01/2024 Sussy Black Type 2 diabetes mellitus with diabetic polyneuropathy E11.42 ; Tinea unguium B35.1 and Tinea pedis of both feet B35.[address] [address] 12/11/2024 Sussy Black Type 2 diabetes mellitus with diabetic polyneuropathy E11.42 and Tinea unguium B35.[address] [address] 03/12/2025 Sussy Black Type 2 diabetes mellitus with diabetic polyneuropathy E11.42 ; Other hammer toe(s) (acquired), right foot M20.41 ; Tinea unguium B35.1 and Other hammer toe(s) (acquired), left foot M20.[address] [address] 06/03/2024 Sussycharlene Lowery [facility] [address] [place] [address] 08/26/2024 Sussycharlene Lowery [facility] [address] [place] [address] 09/10/2024 Sussy Lowery [facility] Encounter Date Diagnosis (ICD Code) Assessment Notes Treatment Notes Treatment Clinical Notes Section Notes 06/02/2024 Tinea unguium (ICD-10 - B35.1) 06/02/2024 Type 2 diabetes mellitus with diabetic polyneuropathy (ICD-10 - E11.42) 09/01/2024 Type 2 diabetes mellitus with diabetic polyneuropathy (ICD-10 - E11.42) 12/11/2024 Tinea unguium (ICD-10 - B35.1) 12/11/2024 Type 2 diabetes mellitus with diabetic polyneuropathy (ICD-10 - E11.42) 03/12/2025 Other hammer toe(s) (acquired), right foot (ICD-10 - M20.41) Patient Educated with: DIABETIC FOOT CARE INSTRUCTIONS. pdf (DIABETIC FOOT CARE INSTRUCTIONS. pdf) 03/12/2025 Type 2 diabetes mellitus with diabetic polyneuropathy (ICD-10 - E11.42) 03/12/2025 Tinea unguium (ICD-10 - B35.1) 09/01/2024 Tinea unguium (ICD-10 - B35.1) 09/01/2024 Tinea pedis of both feet (ICD-10 - B35.3) 03/12/2025 Other hammer toe(s) (acquired), left foot (ICD-10 - M20.42) 06/02/2024 Other Plan Of Treatment Pending Test Test Name Order Date *Wound Culture 12/18/2019 *Wound Culture 11/24/2021 49724-DZOXUZH NAIL, 6 OR MORE 08/25/2021 48382-WXFAGUA NAIL, 6 OR MORE 12/18/2019 62004-GKZFLVX NAIL, 6 OR MORE 11/24/2021 69088-MMCWJMW NAIL, 6 OR MORE 02/23/2022 54292-FIVVAYH NAIL, 6 OR MORE 06/08/2022 61475-BXJLKIY NAIL, 6 OR MORE 09/11/2022 52245-DJXLBRE NAIL, 6 OR MORE 12/11/2022 65376-DZTIPEX NAIL, 6 OR MORE 09/18/2019 88593-CDANAVA NAIL, 6 OR MORE 02/23/2020 91808-ALWTWZF NAIL, 6 OR MORE 05/13/2020 92261-UFPPSFP NAIL, 6 OR MORE 08/12/2020 15903-GUGBPYI NAIL, 6 OR MORE 11/18/2020 93644-YUFRZQC NAIL, 6 OR MORE 02/17/2021 48646-FIHXCXB NAIL, 6 OR MORE 03/15/2023 41461-EEOEPNK NAIL, 6 OR MORE 06/21/2023 68429-FNQZFRU NAIL, 6 OR MORE 10/25/2023 92197-CPWNGQF NAIL, 6 OR MORE 02/14/2024 05765-VTESTTC NAIL, 6 OR MORE 06/02/2024 33746-XPLXUSN NAIL, 6 OR MORE 09/01/2024 46040-CXHXPSX NAIL, 6 OR MORE 12/11/2024 82587-LTLTLTR NAIL, 6 OR MORE 03/12/2025 47625-LEWPAKT NAIL, 6 OR MORE 03/06/2019 57359-RGNKIEO NAIL, 6 OR MORE 06/05/2019 52607-KUJGWAF NAIL, 6 OR MORE 02/21/2018 69240-ZBVTKCN NAIL, 6 OR MORE 05/30/2018 71975-WYBKMDE NAIL, 6 OR MORE 08/29/2018 31835-PLEPYSC NAIL, 6 OR MORE 12/05/2018 42418-SFORASK NAIL, 6 OR MORE 12/22/2015 46436-DZUOPRL NAIL, 6 OR MORE 03/23/2016 59393-JZDJDUF NAIL, 6 OR MORE 06/22/2016 75061-XXJTWMC NAIL, 6 OR MORE 10/05/2016 99856-GSHIQYX NAIL, 6 OR MORE 01/04/2017 23931-KMEITBF NAIL, 6 OR MORE 05/10/2017 06786-WACDOGY NAIL, 6 OR MORE 08/09/2017 48618-MGBRDSG NAIL, 6 OR MORE 11/23/2017 11101-MLOXKWC NAIL, 6 OR MORE 04/17/2011 68176-JQAVDQG NAIL, 6 OR MORE 07/20/2011 29043-MUIGAFV NAIL, 6 OR MORE 08/17/2011 51027-HROFRPO NAIL, 6 OR MORE 09/19/2011 43427-HTFWYUG NAIL, 6 OR MORE 12/25/2011 63329-CQMNPZJ NAIL, 6 OR MORE 03/13/2012 87664-VSWNRWB NAIL, 6 OR MORE 06/19/2012 29985-CLFQAEK NAIL, 6 OR MORE 09/16/2012 29115-QFUWUSY NAIL, 6 OR MORE 12/04/2012 58394-FXOESEE NAIL, 6 OR MORE 03/12/2013 70080-DPNWHAK NAIL, 6 OR MORE 06/18/2013 99701-NOFHVXN NAIL, 6 OR MORE 09/18/2013 66572-XGYXXVR NAIL, 6 OR MORE 12/18/2013 56081-DKJNPPK NAIL, 6 OR MORE 03/19/2014 87341-IMXQWMR NAIL, 6 OR MORE 09/17/2014 00655-MZRAYQD NAIL, 6 OR MORE 12/17/2014 92149-EDYGDGI NAIL, 6 OR MORE 06/18/2014 91734-MIHACCZ NAIL, 6 OR MORE 03/24/2015 99874-KAOPYYY NAIL, 6 OR MORE 06/17/2015 63776-DOAYIXH NAIL, 6 OR MORE 09/16/2015 98990-Ffeyekeo Plate 06/18/2014 69206-Fqslkyqg Plate 12/17/2014 05007-Cjbqevxc Plate 12/18/2013 65150-Gytviuxq Plate 09/18/2013 56993-Keqyepak Plate 03/12/2013 23214-Dnwqugth Plate 01/04/2017 49760-Zpeyyjyg Plate 06/21/2023 31137- Debride <25 sq cm 02/14/2024 03255- Debride <25 sq cm 08/25/2021 26099- Debride <25 sq cm 08/12/2020 39087- Debride <25 sq cm 04/05/2020 57655- Debride <25 sq cm 05/13/2020 55456- Debride <25 sq cm 02/23/2020 18490- Debride <25 sq cm 06/08/2022 74021- Debride <25 sq cm 11/24/2021 13149- Debride <25 sq cm 12/08/2021 95353- Debride <25 sq cm 01/05/2022 68208- Debride <25 sq cm 02/23/2022 47379- Debride <25 sq cm 12/04/2012 27181- Debride <25 sq cm 12/25/2011 24518- Debride <25 sq cm 09/19/2011 53691- Debride <25 sq cm 08/17/2011 94608- Debride <25 sq cm 07/20/2011 30144- Debride <25 sq cm 12/18/2013 27876- Debride <25 sq cm 03/19/2014 53981-ZVENVDH SKIN/TISSUE 12/18/2019 97090-DHIUMDN SKIN/TISSUE 01/05/2020 89407-NAPIKHB SKIN/TISSUE 01/19/2020 94132-XDRDPZX SKIN/TISSUE 02/05/2020 23921-PYTT SKIN LESIONS, OVER 4 09/18/19 20 13614-HHBD SKIN LESIONS, OVER 4 06/05/19 20 04864-WGOK SKIN LESIONS, OVER 4 03/06/20 19 89400-UXJK SKIN LESIONS, OVER 4 12/06/19 19 07732-FUTI SKIN LESIONS, OVER 4 08/30/19 19 11996-APLS SKIN LESIONS, OVER 4 05/30/19 19 40199-AKGF SKIN LESIONS, OVER 4 01/05/20 17 89479-WBVD SKIN LESIONS, OVER 4 02/22/20 18 96629-YPJM SKIN LESIONS, OVER 4 11/24/19 18 89273-AWFI SKIN LESIONS, OVER 4 05/10/20 17 46114-DUQU SKIN LESIONS, OVER 4 08/10/19 18 78515-LSAG SKIN LESIONS, OVER 4 02/24/20 90157-CJEA SKIN LESIONS, OVER 4 11/25/19 22 45684-MDKM SKIN LESIONS, OVER 4 06/08/19 23 83718-UUWY SKIN LESIONS, OVER 4 09/12/19 23 55155-BCQU SKIN LESIONS, OVER 4 03/15/20 23 42378-FCJF SKIN LESIONS, OVER 4 12/12/19 23 93736-CZTQ SKIN LESIONS, OVER 4 02/23/20 20 12919-YPEO SKIN LESIONS, OVER 4 12/18/19 20 29852-WZKS SKIN LESIONS, OVER 4 05/13/20 20 17275-OJQS SKIN LESIONS, OVER 4 08/13/19 21 46055-GTJV SKIN LESIONS, OVER 4 11/19/19 21 14275-QBWO SKIN LESIONS, OVER 4 08/26/19 22 81491-JWPN SKIN LESIONS, OVER 4 02/18/20 21 56962-YQJO SKIN LESIONS, OVER 4 02/14/20 24 77693-BYHN SKIN LESIONS, OVER 4 06/02/19 25 86964-BPRK SKIN LESIONS, OVER 4 06/21/19 24 04925-SZQX SKIN LESIONS, OVER 4 10/25/19 24 40585-XNQL SKIN LESIONS, OVER 4 03/12/20 25 73689-GXVQ SKIN LESIONS, OVER 4 12/12/19 25 87348-VDYJ SKIN LESIONS, OVER 4 09/02/19 25 24180-MFZK SKIN LESIONS, 2 TO 4 06/22/19 17 51801-DGPX SKIN LESIONS, 2 TO 4 10/06/19 17 21509-GYXV SKIN LESIONS, 2 TO 4 03/23/20 16 26464-DFOG SKIN LESIONS, 2 TO 4 12/22/19 16 43324-ZKHS SKIN LESIONS, 2 TO 4 12/18/19 15 49233-DUKY SKIN LESIONS, 2 TO 4 03/24/20 15 40125-SCNO SKIN LESIONS, 2 TO 4 09/16/19 16 53807-LDBU SKIN LESIONS, 2 TO 4 06/17/19 16 Next Appt Details Provider Name:Sussy Lowery , 07/06/2025 02:45:00 PM, [address] [facility], [place], [address], Insurance Providers Payer Name Payer Address Payer Phone Subscriber Number Group Number Insured Name Patient Relationship to Insured Coverage Start Date Coverage End Date Medicare National [employer]t [employer] [address] [place] [address] [id number] Tobin Bey Self - patient is the insured A[employer] Secondary to Medicare [address] [place] [id number] Tobin Bey Self - patient is [...]
--- OUTSIDE RECORDS SUMMARY | 2025-04-03 06:54 | XMS_ITS | Encounter Summary ---
Author Organization [facility] Address [address] [place] [address] Care Team Providers Care Manager Behavior Name Role Phone Jagjit Hancock Primary Care Provider Gigi price Encounter Details Date Type Department Care Team (Latest Contact Info) Description 07/26/[address] [facility] - Main Lab [address] [place] [phone] Rebecca Gomez MD [address] [place] [phone] Essential (primary) hypertension; Anemia, unspecified; Cellulitis, unspecified; [...] [facility] Comment:Calculation based on the Chronic Kidney Disease Epidemiology Collaboration (CKD-EPI) equation refit without adjustment for race. BUN/Creatinine Ratio 26.4 LAB [...] LAB CHEMISTRY METHOD 07/28/2024 1:[address] [facility] Total Protein 6.7 6.0 - [...] Resul t [facility] [address] [place] [address], * (ABNORMAL) Complete blood count (07/28/2024 7:32 [...] LAB HEMETOLOGY METHOD 07/28/2024 1:[address] [facility] MCH 28.1 27.0 - 32.0 pcg LAB HEMETOLOGY METHOD 07/28/2024 1:[address] [facility] MCHC 32.5 32.0 - 37.0 g/dL LAB HEMETOLOGY METHOD 07/28/2024 1:[address] [facility] RDW 13.8 11.0 - 15.0 % LAB HEMETOLOGY METHOD 07/28/2024 1:[address] [facility] Platelets 265 130 - 400 K/mcL LAB HEMETOLOGY METHOD 07/28/2024 1:[address] [facility] MPV 9.7 7.0 - 11.0 FL LAB HEMETOLOGY METHOD 07/28/2024 1:[address] [facility] NRBC 0.0 <1.0 % LAB HEMETOLOGY METHOD 07/28/2024 1:[address] [facility] NRBC Absolute 0.00 <0.10 K/mcL LAB HEMETOLOGY METHOD 07/28/2024 1:[address] [facility] Blood Venous blood specimen / Unknown Venipuncture / Unknown 07/28/2024 7:32 AM EST 07/28/2024 11:16 AM EST Rebecca Gomez MD LAB BLOOD ORDERABLES Final Resul t [facility] [address] [place] [address], documented in this encounter Visit Diagnoses Diagnosis [...] as of this encounter Care Teams Manager Behavior Relationship Specialty Start Date End Date Jagjit Hancock PA [address] [place] [phone] PCP - General Physician Hematology Oncology Consultant 07/23/24 documented as of this encounter
--- OUTSIDE RECORDS SUMMARY | 2025-04-03 06:54 | XMS_ITS | Clinical Summary ---
Author Organization [address] Address [address] [place] [phone] Phone Care Team Providers Care Manager Social Media Name Role Phone Jagjit Hancock Primary Care Provider Gigi price Social History Tobacco Use Types Packs/Day Years [...] Vaccine: 50+ Years (2 of 2 - PPSV23, PCV20, or PCV21) 12/16/2015 10/21/2015, 09/26/2011 RSV Immunization Adult Patients (1 - 1-dose 75+ series) 2021 Falls Risk Assessment 03/22/2024 Hepatitis C Screening 03/22/2024 Medicare Annual Wellness Visit 03/22/2024 Social Influencers of Health Screening 03/22/2024 Depression Screening 05/28/2024 Diabetes: Annual Urine Albumin-Creatinine Ratio (uACR) 07/23/2024 Diabetes: Blood Sugar Control Test (HGBA1C) 01/20/2025 07/23/2024 COVID-19 Vaccine ( season) 2025 03/06/2024, 04/13/2023, 05/02/2022, Additional history exists Influenza Vaccine (#1) 2025 , 02/14/2023, 03/01/2021, Additional history exists Diabetes: Annual GFR (Glomerular Filtration Rate) 08/18/2025 08/18/2024, 08/11/2024, 08/04/2024, Additional history exists Hypertension/CHF/CAD Annual BMP Blood Test 08/18/2025 08/18/2024, 08/11/2024, 08/04/2024, Additional history exists DTaP,Tdap,and Td Vaccines (5 - Td or Tdap) 12/09/2027 12/08/2017, 11/08/2017, 11/08/2017, Additional history exists Cholesterol Screening (Lipid Panel) 07/23/2029 07/23/2024 Zoster Vaccines Completed 02/07/2018, 10/26, 10/14/2013 HIB Vaccines Aged Out No longer eligi [...] unspecified Type 2 diabetes mellitus without complications HEMOGLOBIN A1C Routine 07/23/2024 8:56 AM EST Hyperlipidemia, unspecified Essential (primary) hypertension Anemia, unspecified Type 2 diabetes mellitus without complications (CMS/HCC) Vitamin D deficiency, unspecified Cellulitis, unspecified LIPID PANEL WITH REFLEX TO DIRECT LDL Routine 07/23/2024 8:56 AM EST Hyperlipidemia, unspecified Essential (primary) hypertension Anemia, unspecified Type 2 diabetes mellitus without complications ([facility]) Vitamin D deficiency, unspecified Cellulitis, unspecified from Last 3 Months or Most Recently Relevant to Health Maintenance Results * (ABNORMAL) Comprehensive metabolic panel (08/18/2024 [...] [facility] Comment:Calculation based on the [...] 08/18/2024 12:46 PM EDT [facility] ALT (SGPT) 34 10 - 60 unit/L LAB CHEMISTRY METHOD 08/18/2024 12:46 PM EDT [facility] Alkaline Phosphatase 93 42 - 121 unit/L LAB CHEMISTRY METHOD 08/18/2024 12:46 PM EDT [facility] Total Protein 7.2 6.0 - 8.0 g/dL LAB CHEMISTRY METHOD 08/18/2024 12:46 PM EDT [facility] Albumin 3.4 3.2 - 5.0 [...] Final Resul t [facility] [address] [place] [address], * Lipid panel with reflex to direct LDL (07/23/2024 8:56 AM EST) Cholesterol 117 0 - 200 mg/dL LAB CHEMISTRY METHOD 07/23/2024 1:58 PM EST [facility] Triglycerides 136 0 - 150 mg/dL LAB CHEMISTRY METHOD 07/23/2024 1:58 PM [facility] HDL 53 >=40 mg/dL LAB CHEMISTRY METHOD 07/23/2024 1:58 PM EST [facility] LDL Calculated 37 0 - 100 mg/dL LAB CHEMISTRY METHOD 07/23/2024 1:58 PM EST [facility] VLDL Cholesterol Quique 27.2 mg/dL LAB CHEMISTRY METHOD 07/23/2024 1:58 PM EST [facility] Non HDL Chol. (LDL+VLDL) 64 <145 mg/dL LAB CHEMISTRY METHOD 07/23/2024 1:58 PM EST [facility] Chol/HDL Ratio 2.2 0.0 - 4.4 LAB CHEMISTRY METHOD 07/23/2024 1:58 PM EST [facility] Blood Venous blood specimen / Unknown Venipuncture / Unknown 07/23/2024 8:56 AM EST 07/23/2024 10:27 AM EST Jagjit JOHNSON LAB BLOOD ORDERABLES Final Re sult Performing Organization Address [facility]/ZIP Co de Phone Number [facility] [address] [place] [address], [place] [phone] * (ABNORMAL) Hemoglobin A1c (07/23/2024 8:56 AM EST) Hemoglobin A1C 6.6(H) <6.5 % LAB CHEMISTRY METHOD 07/23/2024 9:50 PM EST [facility] Mean Bld Glu Estim. 143 mg/dL LAB CHEMISTRY METHOD 07/23/2024 9:50 PM EST [facility] Blood Venous blood specimen / Unknown Venipuncture / Unknown 07/23/2024 8:56 AM EST 07/23/2024 10:27 AM EST Jagjit JOHNSON LAB BLOOD ORDERABLES Final Re sult Performing Organization Address City/[facility]/ZIP Co de Phone Number [facility] [address] [place] [address], [place] [phone] from Last 3 Months or Most Recently Relevant to Health Maintenance Insurance MEDICARE [facility] Care Teams Manager Social Media Relationship Specialty Start Date End Date Jagjit Hancock PA [address] [place] [phone] PCP - General Physician Table Saw Operator 07/23/24
--- OUTSIDE RECORDS SUMMARY | 2025-04-03 06:54 | XMS_ITS | Encounter Summary ---
Author Organization [facility] Address [address] [place] [address] Care Team Providers Care Board Design Engineer Name Role Phone Jagjit Hancock Primary Care Provider Gigi price Encounter Details Date Type Department Care Team (Latest Contact Info) Description 07/23/2024 Lab Requisition [facility] [address] [facility] [place] [id number] Jagjit Hancock PA [address] [place] [phone] Hyperlipidemia, unspecified; Essential (primary) hypertension; Anemia, unspecified; [...] CHEMISTRY METHOD 07/23/2024 1:35 PM EST [facility] Blood Venous blood specimen / Unknown Venipuncture / Unknown 07/23/2024 8:56 AM EST 07/23/2024 10:27 AM EST Jagjit JOHNSON LAB BLOOD ORDERABLES Final Re sult Performing Organization Address City/[facility]/ZIP Co de Phone Number [facility] [address] [place] [address], [place] [phone] * (ABNORMAL) Folate (07/23/2024 8:56 AM EST) Pathologist [facility] Folate 17.7(H) 2.8 - 17.0 ng/ml LAB CHEMISTRY METHOD 07/23/2024 1:58 PM EST [facility] Blood Venous blood specimen / Unknown Venipuncture / Unknown 07/23/2024 8:56 AM EST 07/23/2024 10:27 AM EST Jagjit JOHNSON LAB BLOOD ORDERABLES Final Re sult Performing Organization Address City/[facility]/ZIP Co de Phone Number [facility] [address] [place] [address], [place] [phone] * Vitamin B12 (07/23/2024 8:56 AM EST) Pathologist [facility] Vitamin B-12 761 250 - 900 pcg/mL LAB CHEMISTRY METHOD 07/23/2024 1:58 PM EST [facility] Blood Venous blood specimen / Unknown Venipuncture / Unknown 07/23/2024 8:56 AM EST 07/23/2024 10:27 AM EST Jagjit JOHNSON LAB BLOOD ORDERABLES Final Re sult Performing Organization Address City/[facility]/ZIP Co de Phone Number [facility] [address] [place] [address], [place] [phone] * Vitamin D 25 hydroxy (07/23/2024 8:56 AM EST) Vit D, 25-Hydroxy 41.0 30.0 - 80.0 ng/mL LAB CHEMISTRY METHOD 07/23/2024 1:34 PM EST [facility] Blood Venous blood specimen / Unknown Venipuncture / Unknown 07/23/2024 8:56 AM EST 07/23/2024 10:27 AM EST Jagjit JOHNSON LAB BLOOD ORDERABLES Final Re sult Performing Organization Address [facility]/ZIP Co de Phone Number [facility] [address] [place] [address], [place] [phone] * (ABNORMAL) Hemoglobin A1c (07/23/2024 8:56 AM EST) Hemoglobin A1C 6.6(H) <6.5 % LAB CHEMISTRY METHOD 07/23/2024 9:50 PM [facility] Mean Bld Glu Estim. 143 mg/dL LAB CHEMISTRY METHOD 07/23/2024 9:50 PM [facility] Blood Venous blood specimen / Unknown Venipuncture / Unknown 07/23/2024 8:56 AM EST 07/23/2024 10:27 AM EST Jagjit JOHNSON LAB BLOOD ORDERABLES Final Re sult Performing Organization Address [facility]/ZIP Co de Phone Number [facility] [address] [place] [address], [place] [phone] * Lipid panel with reflex to direct LDL (07/23/2024 8:56 AM EST) Cholesterol 117 0 - 200 mg/dL LAB CHEMISTRY METHOD 07/23/2024 1:58 PM [facility] Triglycerides 136 0 - 150 mg/dL LAB CHEMISTRY METHOD 07/23/2024 1:58 PM [facility] HDL 53 >=40 mg/dL LAB CHEMISTRY METHOD 07/23/2024 1:58 PM [facility] LDL Calculated 37 0 - 100 mg/dL LAB CHEMISTRY METHOD 07/23/2024 1:58 PM [facility] VLDL Cholesterol Quique 27.2 mg/dL LAB CHEMISTRY METHOD 07/23/2024 1:58 PM [facility] Non HDL Chol. (LDL+VLDL) 64 <145 mg/dL LAB CHEMISTRY METHOD 07/23/2024 1:58 PM [facility] Chol/HDL Ratio 2.2 0.0 - 4.4 LAB CHEMISTRY METHOD 07/23/2024 1:58 PM [facility] Blood Venous blood specimen / Unknown Venipuncture / Unknown 07/23/2024 8:56 AM EST 07/23/2024 10:27 AM EST us Jagjit JOHNSON LAB BLOOD ORDERABLES Final Re sult [facility] [address] [place] [address], * (ABNORMAL) Comprehensive metabolic panel (07/23/2024 8:56 AM EST) Sodium 137 133 - 145 mmol/L LAB CHEMISTRY METHOD 07/23/2024 1:58 PM [facility] Potassium 4.1 3.5 - 5.5 mmol/L LAB CHEMISTRY METHOD 07/23/2024 1:58 PM [facility] Chloride 103 96 - 110 mmol/L LAB CHEMISTRY METHOD 07/23/2024 1:58 PM [facility] CO2 23 21 - 32 mmol/L LAB CHEMISTRY METHOD 07/23/2024 1:58 PM [facility] Anion Gap 11 3 - 11 LAB CHEMISTRY METHOD 07/23/2024 1:58 PM [facility] Glucose 156(H) 70 - 100 mg/dL LAB CHEMISTRY METHOD 07/23/2024 1:58 PM [facility] BUN 19 5 - 25 mg/dL LAB CHEMISTRY METHOD 07/23/2024 1:58 PM [facility] Creatinine 1.17 0.70 - 1.30 mg/dL LAB CHEMISTRY METHOD 07/23/2024 1:58 PM [facility] eGFR 64 >=60 mL/min/1. 73m2 LAB CHEMISTRY METHOD 07/23/2024 1:58 PM [facility] Comment:Calculation based on the Chronic Kidney Disease Epidemiology Collaboration (CKD-EPI) equation refit without adjustment for race. BUN/Creatinine Ratio 16.2 LAB CHEMISTRY METHOD 07/23/2024 1:58 PM [facility] Calcium 9.1 8.5 - 10.5 mg/dL LAB CHEMISTRY METHOD 07/23/2024 1:58 PM [facility] AST (SGOT) 23 10 - 42 unit/L LAB CHEMISTRY METHOD 07/23/2024 1:58 PM [facility] ALT (SGPT) 21 10 - 60 unit/L LAB CHEMISTRY METHOD 07/23/2024 1:58 PM [facility] Alkaline Phosphatase 96 42 - 121 unit/L LAB CHEMISTRY METHOD 07/23/2024 1:58 PM [facility] Total Protein 6.9 6.0 - 8.0 g/dL LAB CHEMISTRY METHOD 07/23/2024 1:58 PM [facility] Albumin 3.1(L) 3.2 - 5.0 g/dL LAB CHEMISTRY METHOD 07/23/2024 1:58 PM [facility] Total Bilirubin 0.5 0.0 - 1.4 mg/dL LAB CHEMISTRY METHOD 07/23/2024 1:58 PM [facility] Blood Venous blood specimen / Unknown Venipuncture / Unknown 07/23/2024 8:56 AM EST 07/23/2024 10:27 AM EST us Jagjit JOHNSON LAB BLOOD ORDERABLES Final Re sult [facility] [address] [place] [address], * (ABNORMAL) Complete blood count (07/23/2024 8:56 AM EST) [facility] WBC 6.5 4.8 - 10.8 K/mcL LAB HEMETOLOGY METHOD 07/23/2024 12:33 PM [facility] RBC 4.60 4.50 - 5.50 M/mcL LAB HEMETOLOGY METHOD 07/23/2024 12:33 PM [facility] Hemoglobin 12.7(L) 13.5 - 17.5 g/dL LAB HEMETOLOGY METHOD 07/23/2024 12:33 PM [facility] Hematocrit 39.8(L) 42.0 - 54.0 % LAB HEMETOLOGY METHOD 07/23/2024 12:33 PM [facility] MCV 86.3 79.0 - 98.0 FL LAB HEMETOLOGY METHOD 07/23/2024 12:33 PM [facility] MCH 27.5 27.0 - 32.0 pcg LAB HEMETOLOGY METHOD 07/23/2024 12:33 PM [facility] MCHC 31.9(L) 32.0 - 37.0 g/dL LAB HEMETOLOGY METHOD 07/23/2024 12:33 PM [facility] RDW 13.8 11.0 - 15.0 % LAB HEMETOLOGY METHOD 07/23/2024 12:33 PM [facility] Platelets 280 130 - 400 K/mcL LAB HEMETOLOGY METHOD 07/23/2024 12:33 PM [facility] MPV 9.1 7.0 - 11.0 FL LAB HEMETOLOGY METHOD 07/23/2024 12:33 PM [facility] NRBC 0.0 <1.0 % LAB HEMETOLOGY METHOD 07/23/2024 12:33 PM [facility] NRBC Absolute 0.00 <0.10 K/mcL LAB HEMETOLOGY METHOD 07/23/2024 12:33 PM EST [facility] Blood Venous blood specimen / Unknown Venipuncture / Unknown 07/23/2024 8:56 AM EST 07/23/2024 10:27 AM EST us Jagjit JOHNSON LAB BLOOD ORDERABLES Final Re sult [facility] [address] [place] [address], documented in this encounter Visit Diagnoses Diagnosis Hyperlipidemia, unspecified Essential (primary) hypertension Unspecified essential hypertension Anemia, unspecified Type 2 diabetes mellitus without complications (CMS/HCC V24, CMS/HCC V28) Vitamin D deficiency, unspecified Cellulitis, unspecified documented in this encounter Additional Health Concerns Infection Onset Date Last Indicated Resolved Time C. difficile 08/02/2024 08/02/2024 08/26/2024 7:06 PM EDT C. difficile Rule-Out 08/03/2024 08/02/20242024 11:45 AM EDT documented as of this encounter Care Teams Board Design Engineer Relationship Specialty Start Date End Date Jagjit Hancock PA [address] [place] [address] [place] [phone] PCP - General Physician Extracorporeal Circulation Specialist 07/23/24 documented as of this encounter
[2025-04-03 10:48] LABS: Alanine Aminotransferase 11 U/L (0-40); Aspartate Amino Transferase 28 U/L (5-37); Cholesterol 139 mg/dL (<200); HDL Cholesterol 42 mg/dL (>40); Triglycerides 156 mg/dL (<150)
== END 2025-04-03 06:51 | disposition home or self-care (01) ==
LOC: HO.HMGCLDS 06:50
PROVIDERS: PCP Internal Medicine; Visit Provider Internal Medicine
DX: E11.9 Type 2 diabetes mellitus without complications (principal); E78.5 Hyperlipidemia, unspecified
CPT/HCPCS: 36415; 80061; 83036; 84450; 84460

== ENCOUNTER 2025-04-06 12:34 | Outpatient (AMB) | payer MEDICARE, SELFPAY ==
--- OUTSIDE RECORDS SUMMARY | 2024-09-01 11:00 | XMS_ITS ---
Author Organization [facility] [place] mig[place]nagel [place] Address [address] [facility] [address] [address] Care Team Providers Care Registered Massage Therapist Name Role Phone Marina MCDANIELS, Nubia Zelaya Primary Care Provider Un available Black, Sussy Unavailable [phone] Medications Medication SIG (Take, Route, Frequency, Duration) Notes Start Date End Date Status OxyCONTIN Not-Taking Extra Depth Orthopedic Shoes (1 Pair) with Customized Heat Molded Multidensity Innersoles (3 Pair) as directed Dx: NIDDM/Polyneuropathy (E11.42), Hammertoe Foot Deformity (M20.41,M20.42), Preulcerative Skin Lesion(s) (L85.1 12/22/2015 Not-Taking Extra-Depth Diabetic Shoes with 3 Pair Custom heat-molded multi-density innersoles . for 1 year . Dx:hammerotes and calloused lesions; Duration: . 12/17/2014 Not-Taking CeleBREX 200 MG Orally Not- Taking Januvia 50 MG 1 tablet Orally Once a day Not-Taking Ciclopirox Olamine 0.77% external Apply to effected areas twice a day; Duration: 30 days 12/18/2013 Not-Taking Extra-Depth Diabetic Shoes with 3 Pair Custom heat-molded multi-density innersoles Not-Taking Extra Depth Orthopedic Shoes (1 Pair) with Customized Heat Molded Multidensity Innersoles (3 Pair) as directed Dx: NIDDM/Polyneuropathy (E11.42), Hammertoe Foot Deformity (M20.41,M20.42), Preulcerative Skin Lesion(s) (L85.1 01/11/2017 Not-Taking Cipro 500 MG 1 tablet Orally ever y 12 hrs; Duration: 10 day(s) 12/22/2019 Not-Taking Cipro 500 MG 1 tablet Orally ever y 12 hrs; Duration: 10 day(s) 01/19/2020 Not-Taking Bactrim DS 800-160 MG 1 tablet Orally Tw ice a day; Duration: 10 day(s) 12/18/2019 Not-Taking sAXagliptin HCl Not- Taking Bactrim DS 800-160 MG 1 tablet Orally Tw ice a day; Duration: 10 day(s) 03/19/2020 Not-Taking traMADol HCl Not-Erick ing Alogliptin Benzoate 25 MG Orally Not-Taking Trulicity 0.75 MG/0.5ML as directed Subcutaneous Not-Taking Ciclopirox Olamine 0.77 % 1 application Externally Twice a day; Duration: 30 days 09/18/2019 Not-Taking Mupirocin 2 % 1 application Externally Once a day; Duration: 30 days 11/24/2021 Not-Taking Bactrim DS 800-160 MG 1 tablet Orally Tw ice a day; Duration: 10 day(s) 11/24/2021 Not-Taking Extra Depth Orthopedic [...] affected area Externally to feet Twice a day; Duration: 30 days Not-Taking Extra Depth Orthopedic Shoes (1 Pair) with Customized Heat Molded Multidensity Innersoles (3 Pair) as directed Dx: NIDDM/Polyneuropathy (E11.42), Hammertoe Foot Deformity (M20.41,M20.42), Preulcerative Skin Lesion(s) (L85.1 09/11/2022 Not-Taking Meloxicam 15 MG Orally Not- Taking Ammonium Lactate 12 % 1 application Externally Twice a day; Duration: 30 days Not-Taking Extra Depth Orthopedic Shoes (1 Pair) with Customized Heat Molded Multidensity Innersoles (3 Pair) as directed Dx: NIDDM/Polyneuropathy (E11.42), Hammertoe Foot Deformity (M20.41,M20.42), Preulcerative Skin Lesion(s) (L85.1 08/25/2021 Not-Taking Betadine 10 % Apply a light layer to affected area on foot as needed Externally 3 time(s) a day; Duration: 10 days 11/19/2023 Active Extra Depth Orthopedic Shoes (1 Pair) with Customized Heat Molded Multidensity Innersoles (3 Pair) as directed Dx: NIDDM/Polyneuropathy (E11.42), Hammertoe Foot Deformity (M20.41,M20.42), Preulcerative Skin Lesion(s) (L85.1 10/25/2023 Active Iron 325 (65 Fe) MG 1 tablet Orally Once a day Active Ciclopirox Olamine 0.77 % 1 application Externally Twice a day; Duration: 30 days 08/25/2021 Not-Taking Spironolactone Activ e hydroCHLOROthiazide Active Metoprolol & Diet Manage Prod Active hydrALAZINE HCl 75mg 1 tablet Orally 3 times a day Active Naproxen 500 MG 1 tablet as needed Orally every 12 hrs Active Ozempic Active Rosuvastatin Calcium Active Tacrolimus 0.1 % 1 application Externally Once a day Active Losartan Potassium A ctive metFORMIN HCl Active Encounters Encounter Location Date Provider Diagnosis [facility] [address] [address] 09/01/2024 Sussy Lowery Plan Of Treatment Next Appt Details Provider Name:Sussy Lowery , 07/06/2025 02:45:00 PM, [address] [place] [address], [phone], Progress Notes * Umm AMOS:1945 ( 79 yo M)Acc No.[id number]:09/01/2024 Progress Note Patient: Tobin MCKEON Provider: Lauro Lowery DPM :1945 A ge:79 Y S ex:Male Date:09/01/2024 Address:[address] [place] [address] [place], [place]-[id number] Pcp:Jayjay Graham Subjective: * Chief Complaints: * * Medical History: R eflux, Mumps, Measles, Chicken pox, Hypertension, Diabetes mellitus, Macular degeneration. * Medications: T aking Tacrolimus 0.1 % Ointment 1 application Externally Once a day , Taking Rosuvastatin Calcium , Taking Ozempic , Taking metFORMIN HCl , Taking Losartan Potassium , Taking Naproxen 500 MG Tablet 1 tablet as needed Orally every 12 hrs , Taking hydrALAZINE HCl 75mg Tablet 1 tablet Orally 3 times a day , Taking Metoprolol & Diet Manage Prod , Taking hydroCHLOROthiazide , Taking Spironolactone , Taking Iron 325 (65 Fe) MG Tablet 1 tablet Orally Once a day , Taking Extra Depth Orthopedic Shoes (1 Pair) with Customized Heat Molded Multidensity Innersoles (3 Pair) as directed Dx: NIDDM/Polyneuropathy (E11.42), Hammertoe Foot Deformity (M20.41,M20.42), Preulcerative Skin Lesion(s) (L85.1 , Taking Betadine 10 % Solution Apply a light layer to affected area on foot as needed Externally 3 time(s) a day , Not- Taking/PRN Extra Depth Orthopedic Shoes (1 Pair) with Customized Heat Molded Multidensity Innersoles (3 Pair) as directed Dx: NIDDM/Polyneuropathy (E11.42), Hammertoe Foot Deformity (M20.41,M20.42), Preulcerative Skin Lesion(s) (L85.1 , Not-Taking/PRN Ciclopirox Olamine 0.77 % Cream 1 application Externally Twice a day , Not- Taking/PRN Ammonium Lactate 12 % Cream 1 application Externally Twice a day , Not- Taking/PRN Meloxicam 15 MG Tablet Orally , Not-Taking/PRN Extra Depth Orthopedic Shoes (1 Pair) with Customized Heat Molded Multidensity Innersoles (3 Pair) as directed Dx: NIDDM/Polyneuropathy (E11.42), Hammertoe Foot Deformity (M20.41,M20.42), Preulcerative Skin Lesion(s) (L85.1 , Not-Taking/PRN Ciclopirox Olamine 0.77 % Cream 1 application to affected area Externally to feet Twice a day , Not-Taking/PRN Extra Depth Orthopedic Shoes (1 Pair) with Customized Heat Molded Multidensity Innersoles (3 Pair) as directed Dx: NIDDM/Polyneuropathy (E11.42), Hammertoe Foot Deformity (M20.41,M20.42), Preulcerative Skin Lesion(s) (L85.1 , Not-Taking/PRN Extra Depth Orthopedic Shoes (1 Pair) with Customized Heat Molded Multidensity Innersoles (3 Pair) as directed Dx: NIDDM/Polyneuropathy (E11.42), Hammertoe Foot Deformity (M20.41,M20.42), Preulcerative Skin Lesion(s) (L85.1 , Not-Taking/PRN Bactrim DS 800-160 MG Tablet 1 tablet Orally Twice a day , Not-Taking/PRN Mupirocin 2 % Ointment 1 application Externally Once a day , Not-Taking/PRN Ciclopirox Olamine 0.77 % Cream 1 application Externally Twice a day , Not-Taking/PRN Trulicity 0.75 MG/0.5ML Solution Pen-injector as directed Subcutaneous , Not-Taking/PRN Alogliptin Benzoate 25 MG Tablet Orally , Not-Taking/PRN traMADol HCl , Not-Taking/PRN Bactrim DS 800-160 MG Tablet 1 tablet Orally Twice a day , Not-Taking/PRN sAXagliptin HCl , Not-Taking/PRN Bactrim DS 800-160 MG Tablet 1 tablet Orally Twice a day , Not-Taking/PRN Cipro 500 MG Tablet 1 tablet Orally every 12 hrs , Not-Taking/PRN Cipro 500 MG Tablet 1 tablet Orally every 12 hrs , Not-Taking/PRN Extra Depth Orthopedic Shoes (1 Pair) with Customized Heat Molded Multidensity Innersoles (3 Pair) as directed Dx: NIDDM/Polyneuropathy (E11.42), Hammertoe Foot Deformity (M20.41,M20.42), Preulcerative Skin Lesion(s) (L85.1 , Not-Taking/PRN Extra- Depth Diabetic Shoes with 3 Pair Custom heat-molded multi-density innersoles , Not-Taking/PRN Ciclopirox Olamine 0.77% Cream external Apply to effected areas twice a day , Not-Taking/PRN OxyCONTIN , Not-Taking/PRN Januvia 50 MG Tablet 1 tablet Orally Once a day , Not-Taking/PRN CeleBREX 200 MG Capsule Orally , Not- Taking/PRN Extra-Depth Diabetic Shoes with 3 Pair Custom heat-molded multi-density innersoles . . for 1 year . Dx:hammerotes and calloused lesions , Not-Taking/PRN Extra Depth Orthopedic Shoes (1 Pair) with Customized Heat Molded Multidensity Innersoles (3 Pair) as directed Dx: NIDDM/Polyneuropathy (E11.42), Hammertoe Foot Deformity (M20.41,M20.42), Preulcerative Skin Lesion(s) (L85.1 Objective: * Vitals: Assessment: Plan: * Treatment: * Images: * The named appointment provid er may or may not be the originator of this progress note, and it is not deemed complete until electronically signed by the appointment provider. Sign off status: Pending * Provider: Lauro Lowery DPM Date: 0 09/01/2024 Generated for Tu schrader/Yang/Jean on: 1 06/06/2024 02:43 PM EST
--- OUTSIDE RECORDS SUMMARY | 2024-09-04 10:00 | XMS_ITS ---
Author Organization [facility] Address [address] [place] [address] Care Team Providers Care Health Promotion Coordinator Name Role Phone Marina MCDANIELS, Nubia Zelaya Primary Care Provider Un available Sebastián Sussy Unavailable [phone] Encounters Encounter Location Date Provider Diagnosis [address] [address] 09/04/2024 Sussy Sebastián Plan Of Treatment Next Appt Details Provider Name:Sussy Lowery , 07/06/2025 02:45:00 PM, [address] [place] [address], [phone], Progress Notes * Tobin BEYDOB:1945 ( 79 yo M)Acc No.[id number]:09/04/2024 Progress Note Patient: Tobin MCKEON Provider: Evon Lowery DPM :1945 A ge:79 Y S ex:Male Date:09/04/2024 Address:[address] [id number] Pcp:Jayjay Graham Subjective: * Chief Complaints: * * Medical History: Objective: * Vitals: Assessment: Plan: * Treatment: * Images: * The named appointment provid er may or may not be the originator of this progress note, and it is not deemed complete until electronically signed by the appointment provider. Sign off status: Pending * Provider: Evon Lowery DPM Date: 0 09/04/2024 Generated for Tu Doyle on: 06/06/2024 02:42 PM EST
[2025-04-06 13:03] VITALS: BP 110/80; PULSE 68; RESP 17; TEMP 36.6; O2SAT 96; BMI 25.7
--- NOTE | 2025-04-06 13:03 | A.OFFPC_ITS ---
Vital Signs 04/06/25 13:03 Height 5 ft 11 in Weight 184 lb BMI 25.7 BP 110/80 Blood Pressure Location Rt brachial Position Sitting Respiration 17 Pulse 68 Pulse Source Pulse Oximeter Temp 97.8 F Pulse Oximetry (%) 96 Oxygen Delivery Method Room Air Intake Visit Reasons: 3m follow up Intake Note: Pt is here today for his 3mo. f/u Box Maker Required: No Allergies No Known Allergies Allergy (Verified 01/16/25 12:19) Medication List - Last Reviewed 04/06/25 by Laxmi Herrera CMA ascorbic acid (vitamin C) (Vitamin C) 1,000 mg PO DAILY blood sugar diagnostic (FreeStyle Lite Strips) check fasting blood sugar once a day blood-glucose meter (FreeStyle Lite Meter kit) check fasting blood sugar once a day [coQ10 (ubiquinol) ] empagliflozin (Jardiance) 10 mg PO DAILY ferrous sulfate 325 mg PO DAILY glucosamine-chondroitin 250-200 mg (Osteo Bi-Flex) 2 tabs PO TID lancets As directed lancets (Accu-Chek Fastclix Lancet Drum) Check blood sugar 3 times a day as directed lidocaine 5% 1 patch topical DAILY [magnesium ] metoprolol tartrate 100 mg PO DAILY multivitamin 1 tab PO DAILY rosuvastatin 10 mg PO .QSATURDAY semaglutide (Ozempic) 1 mg subcut QWEEK spironolactone 25 mg PO DAILY Tobacco use date assessed: 04/06/25 Fall risk assessment: No Falls in past year Last assessed Fall Risk: 04/06/25 Dental Screening Dental Screen Date: 04/06/25 Did you have a dental visit in the last 12 months?: No Did you have a dental problem in the last 6 months where you did not have access to dental care?: No Was dental information given to patient?: Patient declined HPI 3m follow up HPI Details 79-year-old male with history of diabete s mellitus, dyslipidemia and a nonhealing wound in buttock, here today for follow-up. He sees sees At the [facility] who recently increase his Ozempic dose from 0.5 to 1 mg once a week, as his hemoglobin A1c increased from 5.7-6.4%, with blood sugar running in the 200s lately. He was continued on Jardiance 10 mg once a day Latest fasting lipids are within normal limits. Takes rosuvastatin 10 mg once a week He sees [facility], Dr. Fung for chronic ulcer of buttock, has [facility] doing wound care at least 3 to twice a week. Blood pressure within normal limits currently on metoprolol tartrate 100 mg daily, spironolactone 25 mg once a day He has primary osteoarthritis and right hip and right knee, unable to get hip replacement until wound in buttock completely heals He currently sees Dr. 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 [facility] Medical History Decreased glomerular filtration rate (GFR) Elevated serum creatinine Ulcer of left heel Chronic ulcer of buttock Hx of adenomatous polyp of colon Tinea unguium Anemia Elevated vitamin B12 level Osteoarthritis of left hip Dyslipidemia Eczema Essential hypertension Type 2 diabetes mellitus without complication, without long-term current use of insulin Surgical History Hx of colonoscopy History of cataract surgery H/O shoulder replacement History of total hip replacement Family History Father Smoker Emphysema, unspecified Mother HTN (hypertension) Diabetes mellitus Cancer Brother Diabetes mellitus Social History Housing: House Are you a primary residential child care counselor to a significant other at home: No Do you presently have visiting nurse or other home services: No Alcohol intake: current Patient Tobacco Use Status: Never used Tobacco e-Cigarette/Vaping Use: Never Used service: No Current occupational status: retired Cognitive needs: No Hearing needs: No Vision needs: No Questionnaire PHQ-9 Over the last 2 weeks, how often have you been bothered by any of the following problems? 1. Little interest or pleasure in doing things: not at all 2. Feeling down, depressed, or hopeless: not at all 3. Trouble falling or staying asleep, or sleeping too much: not at all 4. Feeling tired or having little energy: not at all 5. Poor appetite or overeating: not at all 6. Feeling bad about yourself - or that you are a failure or have let yourself or your family down: not at all 7. Trouble concentrating on things, such as reading the newspaper or watching te levision: not at all 8. Moving or speaking so slowly that other people could have noticed. Or the opposite - being so fidgety or restless that you have been moving around a lot more than usual: not at all 9. Thoughts that you would be better off or of hurting yourself in some way: not at all Total score: 0 Depression Screening Interpretation: Negative Depression Screening Done: Yes Source: Developed by Drs. Unruly Figueroa, Mey Ramírez, John Wagner and colleagues, with an educational christina from [employer]. Thrive Questionnaire Date Thrive assessed: 01/05/25 I am a: Patient What is your living situation today?: I have a steady place to live Within the past 12 months, did the food you bought not last and you didn't have the money to get more?: Never true Within the past 12 months, did you worry whether your food would run out before you got money to buy more?: Never true Do you have trouble paying for medicines?: No Do you have trouble getting transportation to medical appointments?: No Do you have trouble paying your heating and electricity bill?: No Do you have trouble taking care of your child, family member or friend?: No Do you have trouble with day-to-day activities such as bathing, preparing meals, shopping, managing finances, etc.?: No Are you currently unemployed and looking for a job?: No Are you interested in more education?: No Please select the resources that you would like help with: None Currently or been in a relationship where the following occur: No concerns reported THRIVE Score: 0 AUDIT C Alcohol Use Questionnaire (AUDIT-C) 1. How often do you have a drink containing alcohol?: Never 3. How often do you have six or more drinks on one occasion?: Never Total Score: 0 SHIRA-7 AMB Questionnaire SHIRA-7 Date SHIRA - 7 assessed: 01/05/25 Feeling nervous, anxious, or on edge: 0 = Not at all Not being able to stop or control worryin = Not at all Worrying too much about different things: 0 = Not at all Trouble relaxin = Not at all Being so restless that it is hard to sit still: 0 = Not at all Becoming easily annoyed or irritable: 0 = Not at all Feeling afraid as if something awful might happen: 0 = Not at all Total SHIRA-7 score (0-4 normal; 5-9 mild; 10-14 moderate; 15-21 severe): 0 Source: Developed by Drs. Unruly Figueroa, Mey Ramírez, John Wagner and colleagues, with an educational christina from [employer]. Review of Systems Const Denies frequent falls, Denies headache(s) and Reports poor appetite Eyes Details: has an appt with [facility] in am for tx of wet AMD OS and dry AMD OD , referred by Dr Fowler ENT Reports no additional complaints and Denies headache(s) Card Denies chest pain, Denies rapid heart rate, Denies lightheadedness, Denies palpitations and Denies dyspnea Resp Denies chest congestion, Denies cough and Denies dyspnea GI Denies abdominal pain, Denies melena, Denies hematochezia, Denies change in stool character and Denies heartburn Reports no additional complaints Musc Reports arthralgias (Right hip right hip right hip) Skin/Breast Details: Patient also has a heel ulcer, seen by Dr. Lowery who in turn referred him to [facility] wound clinic Neuro Denies frequent falls and Denies headache(s) Psych Reports no additional complaints Endo Denies palpitations Oscar/Lymph Reports no additional complaints Aller/Immun Reports no additional complaints Physical exam (Primary Care) Vital Signs: Last Vital Signs Temp 97.8 F 04/06/25 13:03 Pulse 68 04/06/25 13:03 Resp 17 04/06/25 13:03 BP 110/80 04/06/25 13:03 Pulse Ox 96 04/06/25 13:03 Oxygen Delivery Method Room Air 04/06/25 13:03 BMI result Body Mass Index 25.7 Tobacco/Smoking Status: Tobacco use Status Tobacco use date assessed 04/06/25 04/06/25 13:07 Patient Tobacco Use Status Never used Tobacco 04/06/25 13:03 e-Cigarette/Vaping Use Never Used 04/06/25 13:03 PHQ-9: PHQ-9 Score PHQ-9: Total score 0 04/06/25 13:11 Depression Screening Interpretation: Negative Thrive Assessment: Date of Thrive Assessment Date Thrive assessed 01/05/25 04/06/25 13:03 Currently or been in a relationship where the following occur: No concerns reported Const General: no acute distress and alert Nutritional Appearance: average body habitus Orientation/consciousness: patient oriented x3 Limitations: ambulation with walker HENMT Head: Yes normocephalic General nose exam: Normal external nose present Face and sinus: Yes face symmetric Mouth: moist mucous membranes Eyes General: appearance normal, both eyes and all related structures Neck Other: Supple, no lymphadenopathy , thyroid gland nonpalpable Resp Auscultation: clear to auscultation bilaterally Cardio Other: S1-S2 present regular rate and rhythm GI Other: Normal bowel sounds, soft, nontender, no mass palpated General: Yes no CVA tenderness Back/Spine/Pelvis Back: no CVA tenderness and No back tenderness Skin Other: superficial ulceration with no drainage noted on medial left and right buttock respectively, no surrounding erythema or swelling Neuro General: patient oriented x3, tone normal, moves all extremities, no focal motor deficits and decrease sensation to monofilament Cranial nerves: Yes CN's II-XII intact bilaterally Cognition (Neuro): normal cognition Gait exam (Neuro): Antalgic gait present (Favoring right leg) Extrem General: Yes no joint enlargement and Yes Limp noted (right) Results Reviewed Results Reviewed: Name: Tobin Bey Age/Sex: 79/M : 1945 Unit#: [id number] Attend Dr: Nubia Gray MD Re04/03/25 Status: DEP REF Location: [facility] Disch: SPEC : [id number] UZMA: 04/03/25 STATUS: COMP REQ : [id number] RECD: 04/03/[address]: Nubai Gray MD COMP: 04/03/25 ENTERED: 04/03/[address]: ORDERED: AST, ALT, Lipid Panel Test Result Flag Reference AST (GOT) 28 5-37 U/L ALT (GPT) 11 0-40 U/L Triglyceride 156 H <150 mg/dL Desirable Triglyceride: less than 150 mg/dL Borderline High Triglyceride 150-199 mg/dL High Triglyceride: 200-499 mg/dL Very High Triglyceride: greater than or equal to 5OO mg/dL Cholesterol 139 <200 mg/dL Desirable Cholesterol: less than 200 mg/dL Borderline High Cholesterol: 200-239 mg/dL High Cholesterol: greater than 239 mg/dL LDL Calculated 66 <100 mg/dL Desirable LDL: less than 100 mg/dL Near Optimal/Above Optimal LDL: 110-129 mg/dL Borderline High LDL: 130-159 mg/dL High LDL: 160-189 mg/dL Very High LDL: greater than or equal to 190 mg/dL HDL 42 >40 mg/dL Desirable HDL: greater than 40 mg/dL Note: This HDL assay may give artificially low results in patients with liver disease. Laboratory Tests 04/03/25 06:53 Estimat Average Glucose 137 Hemoglobin A1c % 6.4 H Coding Level of Care Code Est Pt Level 4 (44264) Complex EM visit Add On G2211 Diagnoses Type 2 diabetes mellitus without complication, without long-term current use of insulin E11.9 Dyslipidemia E78.5 Essential hypertension I10 CKD stage 3a, GFR 45-59 ml/min N18.31 Primary osteoarthritis of right hip M16.11 Chronic ulcer of buttock L98.419 Assessment & Plan Assessment & Plan (1) Type 2 diabetes mellitus without complication, without long-term current use of insulin: Code(s): E11.9 - Type 2 diabetes mellitus without complications Category: Medical Plan: [facility] who [facility] adjusted do Ozempic to 1 mg once a week, continued on Jardiance 10 mg daily he is up-to-date with his diabetes retinopathy screening, Dr. 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 (3) Essential hypertension: Code(s): I10 - Essential (primary) hypertension Category: Medical Plan: Blood pressure at goal of less than 130/80. Continue with current medication. Reinforced importance of following a low sodium diet, getting regular exercise, and lowering stress levels. (4) CKD stage 3a, GFR 45-59 ml/min: Code(s): N18.31 - Chronic kidney disease, stage 3a Category: Medical Plan: Followed by nephrology (5) Primary osteoarthritis of right hip: Code(s): M16.11 - Unilateral primary osteoarthritis, right hip Category: Medical Plan: Unable to get hip replacement, as patient states his orthopedic doctor will not do surgery until the ulcer on his buttock completely heals (6) Chronic ulcer of buttock: Code(s): L98.419 - Non-pressure chronic ulcer of buttock with unspecified severity Category: Medical Plan Currently goes to [facility], has [facility] changing his dressing twice a day Orders: Orders Lipid Panel 06/27/25 E11.9 - Type 2 diabetes mellitus without complications, E78.5 - Hyperlipidemia, unspecified, I10 - Essential (primary) hypertension Microalbumin, Random (w Creat) 06/27/25 E11.9 - Type 2 diabetes mellitus without complications, E78.5 - Hyperlipidemia, unspecified, I10 - Essential (primary) hypertension Hemoglobin A1c 06/27/25 E11.9 - Type 2 diabetes mellitus without complications, E78.5 - Hyperlipidemia, unspecified, I10 - Essential (primary) hypertension Aspartate Amino Transferase 06/27/25 E11.9 - Type 2 diabetes mellitus without complications, E78.5 - Hyperlipidemia, unspecified, I10 - Essential (primary) hypertension Alanine Aminotransferase 06/27/25 E11.9 - Type 2 diabetes mellitus without complications, E78.5 - Hyperlipidemia, unspecified, I10 - Essential (primary) hypertension Basic Metabolic Panel Fasting 06/27/25 E11.9 - Type 2 diabetes mellitus without complications, E78.5 - Hyperlipidemia, unspecified, I10 - Essential (primary) hypertension
--- OUTSIDE RECORDS SUMMARY | 2025-04-06 14:42 | XMS_ITS | Encounter Summary ---
Author Organization [facility] Address [address] [place] [address] Care Team Providers Care Awning Maker And Installer Name Role Phone Jagjit Hancock Primary Care Provider Gigi price Encounter Details Date Type Department Care Team (Latest Contact Info) Description 08/08/[address] [facility] - Main Lab [address] [place] [phone] Rebecca Gomez MD [address] [place] [phone] Essential (primary) hypertension; Anemia, unspecified; Cellulitis, unspecified; [...] Comprehensive metabolic panel (08/11/2024 6:40 AM EDT) [facility] Signature Sodium 134 133 - 145 mmol/L LAB CHEMISTRY METHOD 08/11/2024 11:47 AM [facility] Potassium 3.7 3.5 - 5.5 mmol/L LAB CHEMISTRY METHOD 08/11/2024 11:47 AM [facility] Chloride 96 96 - 110 mmol/L LAB CHEMISTRY METHOD 08/11/2024 11:47 AM [facility] CO2 26 21 - 32 mmol/L LAB CHEMISTRY METHOD 08/11/2024 11:47 AM [facility] Anion Gap 12(H) 3 - 11 LAB CHEMISTRY METHOD 08/11/2024 11:47 AM [facility] Glucose 94 70 - 100 mg/dL LAB CHEMISTRY METHOD 08/11/2024 11:47 AM [facility] BUN 28(H) 5 - 25 mg/dL LAB CHEMISTRY METHOD 08/11/2024 11:47 AM [facility] Creatinine 1.09 0.70 - 1.30 mg/dL LAB CHEMISTRY METHOD 08/11/2024 11:47 AM [facility] eGFR 70 >=60 mL/min/1. 73m2 LAB CHEMISTRY METHOD 08/11/2024 11:47 AM [facility] Comment:Calculation based on the Chronic Kidney Disease Epidemiology Collaboration (CKD-EPI) equation refit without adjustment for race. BUN/Creatinine Ratio 25.7 LAB CHEMISTRY METHOD 08/11/2024 11:47 AM [facility] Calcium 9.3 8.5 - 10.5 mg/dL LAB CHEMISTRY METHOD 08/11/2024 11:47 AM [facility] AST (SGOT) 24 10 - 42 unit/L LAB CHEMISTRY METHOD 08/11/2024 11:47 AM [facility] ALT (SGPT) 25 10 - 60 unit/L LAB CHEMISTRY METHOD 08/11/2024 11:[address] [facility] Alkaline Phosphatase 86 42 - 121 unit/L LAB CHEMISTRY METHOD 08/11/2024 11:[address] [facility] Total Protein 6.8 6.0 - 8.0 g/dL LAB CHEMISTRY METHOD 08/11/2024 11:[address] [facility] Albumin 3.3 3.2 - 5.0 g/dL LAB CHEMISTRY METHOD 08/11/2024 11:[address] [facility] Total Bilirubin 0.5 0.0 - 1.4 mg/dL LAB CHEMISTRY METHOD 08/11/2024 11:[address] [facility] Blood Venous blood specimen / Unknown Venipuncture / Unknown 08/11/2024 6:40 AM EDT 08/11/2024 11:02 AM EDT Rebecca Gomez MD LAB BLOOD ORDERABLES Final Resul t [facility] [address] [place] [address], * (ABNORMAL) Complete blood count (08/11/2024 6:40 AM EDT) WBC 4.7(L) 4.8 - 10.8 K/mcL LAB HEMETOLOGY METHOD 08/11/2024 11:[address] [facility] RBC 4.50 4.50 - 5.50 M/mcL LAB HEMETOLOGY METHOD 08/11/2024 11:[address] [facility] Hemoglobin 12.6(L) 13.5 - 17.5 g/dL LAB HEMETOLOGY METHOD 08/11/2024 11:54 AM [facility] Hematocrit 37.8(L) 42.0 - 54.0 % LAB HEMETOLOGY METHOD 08/11/2024 11:[address] [facility] MCV 84.6 79.0 - 98.0 FL LAB HEMETOLOGY METHOD 08/11/2024 11:[address] [facility] MCH 28.2 27.0 - 32.0 pcg LAB HEMETOLOGY METHOD 08/11/2024 11:[address] [facility] MCHC 33.3 32.0 - 37.0 g/dL LAB HEMETOLOGY METHOD 08/11/2024 11:[address] [facility] RDW 13.9 11.0 - 15.0 % LAB HEMETOLOGY METHOD 08/11/2024 11:[address] [facility] Platelets 231 130 - 400 K/mcL LAB HEMETOLOGY METHOD 08/11/2024 11:[address] [facility] MPV 9.6 7.0 - 11.0 FL LAB HEMETOLOGY METHOD 08/11/2024 11:[address] [facility] NRBC 0.0 <1.0 % LAB HEMETOLOGY METHOD 08/11/2024 11:[address] [facility] NRBC Absolute 0.00 <0.10 K/mcL LAB HEMETOLOGY METHOD 08/11/2024 11:[address] [facility] Blood Venous blood specimen / Unknown Venipuncture / Unknown 08/11/2024 6:40 AM EDT 08/11/2024 11:02 AM EDT us Rebecca Gomez MD LAB BLOOD ORDERABLES Final Resul t [facility] [address] [place] [address], documented in this encounter Visit Diagnoses Diagnosis Essential (primary) hypertension Unspecified essential hypertension Anemia, unspecified Cellulitis, unspecified Type 2 diabetes mellitus without complications (CMS/HCC V24, CMS/HCC V28) documented in this encounter Additional Health Concerns Infection Onset Date Last Indicated Resolved Time C. difficile 08/02/2024 08/02/2024 08/26/2024 7:06 PM EDT documented as of this encounter Care Teams Awning Maker And Installer Relationship Specialty Start Date End Date Jagjit Hancock PA [address] [place] [phone] PCP - General Physician Repairer Sash And Door 07/23/24 documented as of this encounter
--- OUTSIDE RECORDS SUMMARY | 2025-04-06 14:42 | XMS_ITS | Encounter Summary ---
Author Organization [facility] Address [address] [place] [address] Care Team Providers Care Golf Club Manager Name Role Phone Jagjit Hancock Primary Care Provider Gigi price Encounter Details Date Type Department Care Team (Latest Contact Info) Description 08/02/2024 Lab Requisition [facility] - Main Lab [address] [place] [phone] Rebecca Gomez MD [address] [place] [phone] Essential (primary) hypertension; Anemia, unspecified; Cellulitis, unspecified; [...] mmol/L LAB CHEMISTRY METHOD 08/04/2024 12:15 PM [facility] Potassium 3.7 3.5 - 5.5 mmol/L LAB CHEMISTRY METHOD 08/04/2024 12:15 PM [facility] Chloride 97 96 - 110 mmol/L LAB CHEMISTRY METHOD 08/04/2024 12:15 PM [facility] CO2 24 21 - 32 mmol/L LAB CHEMISTRY METHOD 08/04/2024 12:15 PM [facility] Anion Gap 12(H) 3 - 11 LAB CHEMISTRY METHOD 08/04/2024 12:15 PM [facility] Glucose 93 70 - 100 mg/dL LAB CHEMISTRY METHOD 08/04/2024 12:15 PM [facility] BUN 36(H) 5 - 25 mg/dL LAB CHEMISTRY METHOD 08/04/2024 12:15 PM [facility] Creatinine 1.11 0.70 - 1.30 mg/dL LAB CHEMISTRY METHOD 08/04/2024 12:15 PM [facility] eGFR 68 >=60 mL/min/1. 73m2 LAB CHEMISTRY METHOD 08/04/2024 12:15 PM [facility] Comment:Calculation based on the Chronic Kidney Disease Epidemiology Collaboration (CKD-EPI) equation refit without adjustment for race. BUN/Creatinine Ratio 32.4 LAB CHEMISTRY METHOD 08/04/2024 12:15 PM [facility] Calcium 9.6 8.5 - 10.5 mg/dL LAB CHEMISTRY METHOD 08/04/2024 12:15 PM [facility] AST (SGOT) 18 10 - 42 unit/L LAB CHEMISTRY METHOD 08/04/2024 12:15 PM [facility] ALT (SGPT) 19 10 - 60 unit/L LAB CHEMISTRY METHOD 08/04/2024 12:15 PM EDT [facility] Alkaline Phosphatase 83 42 - 121 unit/L LAB CHEMISTRY METHOD 08/04/2024 12:15 PM EDT [facility] Total Protein 6.9 6.0 - 8.0 g/dL LAB CHEMISTRY METHOD 08/04/2024 12:15 PM [facility] Albumin 3.3 3.2 - 5.0 g/dL LAB CHEMISTRY METHOD 08/04/2024 12:15 PM EDT [facility] Total Bilirubin 0.5 0.0 - 1.4 mg/dL LAB CHEMISTRY METHOD 08/04/2024 12:15 PM T [facility] Blood Venous blood specimen / Unknown Venipuncture / Unknown 08/04/2024 8:03 AM EDT 08/04/2024 10:52 AM EDT Rebecca Gomez MD LAB BLOOD ORDERABLES Final Resul t [facility] [address] [place] [address], * (ABNORMAL) Complete blood count (08/04/2024 8:03 AM EDT) WBC 6.9 4.8 - 10.8 K/mcL LAB HEMETOLOGY METHOD 08/04/2024 11:38 AM EDT [facility] RBC 4.60 4.50 - 5.50 M/mcL LAB HEMETOLOGY METHOD 08/04/2024 11:38 AM EDT [facility] Hemoglobin 12.8(L) 13.5 - 17.5 g/dL LAB HEMETOLOGY METHOD 08/04/2024 11:38 AM T [facility] Hematocrit 39.0(L) 42.0 - 54.0 % LAB HEMETOLOGY METHOD 08/04/2024 11:38 AM EDT [facility] MCV 85.2 79.0 - 98.0 FL LAB HEMETOLOGY METHOD 08/04/2024 11:38 AM EDT [facility] MCH 27.9 27.0 - 32.0 pcg LAB HEMETOLOGY METHOD 08/04/2024 11:38 AM EDT [facility] MCHC 32.8 32.0 - 37.0 g/dL LAB HEMETOLOGY METHOD 08/04/2024 11:38 AM EDT [facility] RDW 13.9 11.0 - 15.0 % LAB HEMETOLOGY METHOD 08/04/2024 11:38 AM EDT [facility] Platelets 281 130 - 400 K/mcL LAB HEMETOLOGY METHOD 08/04/2024 11:38 AM EDT [facility] MPV 9.3 7.0 - 11.0 FL LAB HEMETOLOGY METHOD 08/04/2024 11:38 AM EDT [facility] NRBC 0.0 <1.0 % LAB HEMETOLOGY METHOD 08/04/2024 11:38 AM EDT [facility] NRBC Absolute 0.00 <0.10 K/mcL LAB HEMETOLOGY METHOD 08/04/2024 11:38 AM [facility] Blood Venous blood specimen / Unknown Venipuncture / Unknown 08/04/2024 8:03 AM EDT 08/04/2024 10:52 AM EDT us Rebecca Gomez MD LAB BLOOD ORDERABLES Final Resul t [facility] [address] [place] [address], documented in this encounter Visit Diagnoses Diagnosis [...] documented as of this encounter Care Teams Golf Club Manager Relationship Specialty Start Date End Date Jagjit Hancock PA [address] [place] [phone] PCP - General Physician Production Finisher 07/23/24 documented as of this encounter
--- OUTSIDE RECORDS SUMMARY | 2025-04-06 14:42 | XMS_ITS | Patient Health Record ---
Author Organization [facility] Address [address] [place] [phone] Care Team Providers Care Rn Recovery Name Role Phone Marina MCDANIELS, Nubia Primary [...] Status Risk Notes Problem Colon cancer screening (746659880) Colon cancer screening (Z12.11) Active confirmed Problem Long-term current use of antiplatelet drug (967926698443911 ) intermediate manager (current) use of aspirin (Z79.82) Active confirmed Problem Long-term current use of aspirin (617948319582214 ) Aspirin long-term use (Z79.82) Active confirmed Problem Iron deficiency anemia (05324380) Iron deficiency anemia, unspecified iron deficiency anemia type (D50.9) Active confirmed Vital Signs Blood pressure diastolic 11 mm Hg 09/11/2024 Height 72 in 09/11/2024 Blood pressure systolic 111 mm Hg 09/11/2024 Weight 193 lbs 09/11/2024 BMI 26.17 kg/m2 09/11/2024 Encounters Encounter Location Date Provider [facility] [address] [place] [address] 09/11/2024 Daryn Pimentel Jr Colon cancer screening Z12.11 and Aspirin long-term use Z79.82 [facility] [address] [place] [address] 05/30/2024 Daryn Pimentel Jr [facility] [address] [place] [address] 09/11/2024 Daryn Pimentel Jr [facility] [address] [place] [address] 09/11/2024 Daryn Pimentel Jr Assessments Encounter Date [...] OF [place] [address] [place] [address] [id number] JULIO CREUBEN NIELSON Self - patient is the insured 2 [facility] [employer] [address] [place] [address] [phone] [id number] REUBEN AMOS Self - patient is the [...]
--- OUTSIDE RECORDS SUMMARY | 2025-04-06 14:42 | XMS_ITS | Encounter Summary ---
Author Organization [facility] Address [address] [place] [address] Care Team Providers Care Donor Technician Name Role Phone Jagjit Hancock Primary Care Provider Gigi price Encounter Details Date Type Department Care Team (Latest Contact Info) Description 08/16/2024 Lab Requisition [facility] - Main Lab [address] [place] [phone] Rebecca Gomez MD [address] [place] [phone] Essential (primary) hypertension; Anemia, unspecified; Cellulitis, unspecified; [...] Comprehensive metabolic panel (08/18/2024 7:18 AM EDT) [facility] Signature Sodium 132(L) 133 - 145 mmol/L LAB CHEMISTRY METHOD 08/18/2024 12:46 PM [facility] Potassium 4.4 3.5 - 5.5 mmol/L LAB CHEMISTRY METHOD 08/18/2024 12:46 PM [facility] Chloride 95(L) 96 - 110 mmol/L LAB CHEMISTRY METHOD 08/18/2024 12:46 PM [facility] CO2 27 21 - 32 mmol/L LAB CHEMISTRY METHOD 08/18/2024 12:46 PM [facility] Anion Gap 10 3 - 11 LAB CHEMISTRY METHOD 08/18/2024 12:46 PM [facility] Glucose 88 70 - 100 mg/dL LAB CHEMISTRY METHOD 08/18/2024 12:46 PM [facility] BUN 34(H) 5 - 25 mg/dL LAB CHEMISTRY METHOD 08/18/2024 12:46 PM [facility] Creatinine 1.19 0.70 - 1.30 mg/dL LAB CHEMISTRY METHOD 08/18/2024 12:46 PM [facility] eGFR 63 >=60 mL/min/1. 73m2 LAB CHEMISTRY METHOD 08/18/2024 12:46 PM [facility] Comment:Calculation based on the Chronic Kidney Disease Epidemiology Collaboration (CKD-EPI) equation refit without adjustment for race. BUN/Creatinine Ratio 28.6 LAB CHEMISTRY METHOD 08/18/2024 12:46 PM [facility] Calcium 9.7 8.5 - 10.5 mg/dL LAB CHEMISTRY METHOD 08/18/2024 12:46 PM [facility] AST (SGOT) 30 10 - 42 unit/L LAB CHEMISTRY METHOD 08/18/2024 12:46 PM [facility] ALT (SGPT) 34 10 - 60 unit/L LAB CHEMISTRY METHOD 08/18/2024 12:46 PM EDT [facility] Alkaline Phosphatase 93 42 - 121 unit/L LAB CHEMISTRY METHOD 08/18/2024 12:46 PM EDT [facility] Total Protein 7.2 6.0 - 8.0 g/dL LAB CHEMISTRY METHOD 08/18/2024 12:46 PM [facility] Albumin 3.4 3.2 - 5.0 g/dL LAB CHEMISTRY METHOD 08/18/2024 12:46 PM EDT [facility] Total Bilirubin 0.6 0.0 - 1.4 mg/dL LAB CHEMISTRY METHOD 08/18/2024 12:46 PM EDT [facility] Blood Venous blood specimen / Unknown Venipuncture / Unknown 08/18/2024 7:18 AM EDT 08/18/2024 11:03 AM EDT Rebecca Gomez MD LAB BLOOD ORDERABLES Final Resul t [facility] [address] [place] [address], [place] [phone] * (ABNORMAL) Complete blood count (08/18/2024 7:18 [...] 11:59 AM T [facility] NRBC Absolute 0.00 <0.10 K/mcL LAB HEMETOLOGY METHOD 08/18/2024 11:59 AM [facility] Blood Venous blood specimen / Unknown Venipuncture / Unknown 08/18/2024 7:18 AM EDT 08/18/2024 11:03 AM EDT us Rebecca Gomez MD LAB BLOOD ORDERABLES Final Resul t [facility] [address] [place] [address], documented in this encounter Visit Diagnoses Diagnosis Essential (primary) hypertension Unspecified essential hypertension Anemia, unspecified Cellulitis, unspecified Type 2 diabetes mellitus without complications (CMS/HCC V24, CMS/HCC V28) documented in this encounter Additional Health Concerns Infection Onset Date Last Indicated Resolved Time C. difficile 08/02/2024 08/02/2024 08/26/2024 7:06 PM EDT documented as of this encounter Care Teams Donor Technician Relationship Specialty Start Date End Date Jagjit Hancock PA [address] [place] [address] [place] [phone] PCP - General Physician Seed Service Advisor 07/23/24 documented as of this encounter
--- OUTSIDE RECORDS SUMMARY | 2025-04-06 14:43 | XMS_ITS | Encounter Summary ---
Author Organization [facility] Address [address] [place] [address] Care Team Providers Care Sugar Cane Planter Name Role Phone Jagjit Hancock Primary Care Provider Gigi price Encounter Details Date Type Department Care Team (Latest Contact Info) Description 07/23/2024 Lab Requisition [facility] - Main Lab [address] [facility] [place] [address] Jagjit Hancock PA [address] [place] [phone] Hyperlipidemia, unspecified; Essential (primary) hypertension; Anemia, unspecified; [...] LAB CHEMISTRY METHOD 07/23/2024 1:35 PM EST [facility] Blood Venous blood specimen / Unknown Venipuncture / Unknown 07/23/2024 8:56 AM EST 07/23/2024 10:27 AM EST Jagjit JOHNSON LAB BLOOD ORDERABLES Final Re sult Performing Organization Address City/[facility]/ZIP Co de Phone Number [facility] [address] [place] [address], [place] [phone] * (ABNORMAL) Folate (07/23/2024 8:56 AM EST) Pathologist [facility] Folate 17.7(H) 2.8 - 17.0 ng/ml LAB CHEMISTRY METHOD 07/23/2024 1:58 PM EST [facility] Blood Venous blood specimen / Unknown Venipuncture / Unknown 07/23/2024 8:56 AM EST 07/23/2024 10:27 AM EST Jagjit JOHNSON LAB BLOOD ORDERABLES Final Re sult Performing Organization Address City/[facility]/ZIP Co de Phone Number [facility] [address] [place] [address], [place] [phone] * Vitamin B12 (07/23/2024 8:56 AM EST) Pathologist [facility] Vitamin B-12 761 250 - 900 pcg/mL LAB CHEMISTRY METHOD 07/23/2024 1:58 PM EST [facility] Blood Venous blood specimen / Unknown Venipuncture / Unknown 07/23/2024 8:56 AM EST 07/23/2024 10:27 AM EST Jagjit JOHNSON LAB BLOOD ORDERABLES Final Re sult Performing Organization Address City/[facility]/ZIP Co de Phone Number [facility] [address] [place] [address], [place] [phone] * Vitamin D 25 hydroxy (07/23/2024 8:56 AM EST) Vit D, 25-Hydroxy 41.0 30.0 - 80.0 ng/mL LAB CHEMISTRY METHOD 07/23/2024 1:34 PM EST [facility] Blood Venous blood specimen / Unknown Venipuncture / Unknown 07/23/2024 8:56 AM EST 07/23/2024 10:27 AM EST Jagjit JOHNSON LAB BLOOD ORDERABLES Final Re sult Performing Organization Address [facility]/ZIP Co de Phone Number [facility] [address] [place] [address], [place] [phone] * (ABNORMAL) Hemoglobin A1c (07/23/2024 8:56 AM EST) Hemoglobin A1C 6.6(H) <6.5 % LAB CHEMISTRY METHOD 07/23/2024 9:50 PM [facility] Mean Bld Glu Estim. 143 mg/dL LAB CHEMISTRY METHOD 07/23/2024 9:50 PM [facility] Blood Venous blood specimen / Unknown Venipuncture / Unknown 07/23/2024 8:56 AM EST 07/23/2024 10:27 AM EST Jagjit JOHNSON LAB BLOOD ORDERABLES Final Re sult Performing Organization Address [facility]/ZIP Co de Phone Number [facility] [address] [place] [address], [place] [phone] * Lipid panel with reflex to direct LDL (07/23/2024 8:56 AM EST) Cholesterol 117 0 - 200 mg/dL LAB CHEMISTRY METHOD 07/23/2024 1:58 PM [facility] Triglycerides 136 0 - 150 mg/dL LAB CHEMISTRY METHOD 07/23/2024 1:58 PM [facility] HDL 53 >=40 mg/dL LAB CHEMISTRY METHOD 07/23/2024 1:58 PM [facility] LDL Calculated 37 0 - 100 mg/dL LAB CHEMISTRY METHOD 07/23/2024 1:58 PM [facility] VLDL Cholesterol Quique 27.2 mg/dL LAB CHEMISTRY METHOD 07/23/2024 1:58 PM [facility] Non HDL Chol. (LDL+VLDL) 64 <145 mg/dL LAB CHEMISTRY METHOD 07/23/2024 1:58 PM [facility] Chol/HDL Ratio 2.2 0.0 - 4.4 LAB CHEMISTRY METHOD 07/23/2024 1:58 PM [facility] Blood Venous blood specimen / Unknown Venipuncture / Unknown 07/23/2024 8:56 AM EST 07/23/2024 10:27 AM EST us Jagjit JOHNSON LAB BLOOD ORDERABLES Final Re sult [facility] [address] [place] [address], * (ABNORMAL) Comprehensive metabolic panel (07/23/2024 8:56 AM EST) Sodium 137 133 - 145 mmol/L LAB CHEMISTRY METHOD 07/23/2024 1:58 PM [facility] Potassium 4.1 3.5 - 5.5 mmol/L LAB CHEMISTRY METHOD 07/23/2024 1:58 PM [facility] Chloride 103 96 - 110 mmol/L LAB CHEMISTRY METHOD 07/23/2024 1:58 PM [facility] CO2 23 21 - 32 mmol/L LAB CHEMISTRY METHOD 07/23/2024 1:58 PM [facility] Anion Gap 11 3 - 11 LAB CHEMISTRY METHOD 07/23/2024 1:58 PM [facility] Glucose 156(H) 70 - 100 mg/dL LAB CHEMISTRY METHOD 07/23/2024 1:58 PM [facility] BUN 19 5 - 25 mg/dL LAB CHEMISTRY METHOD 07/23/2024 1:58 PM [facility] Creatinine 1.17 0.70 - 1.30 mg/dL LAB CHEMISTRY METHOD 07/23/2024 1:58 PM [facility] eGFR 64 >=60 mL/min/1. 73m2 LAB CHEMISTRY METHOD 07/23/2024 1:58 PM [facility] Comment:Calculation based on the Chronic Kidney Disease Epidemiology Collaboration (CKD-EPI) equation refit without adjustment for race. BUN/Creatinine Ratio 16.2 LAB CHEMISTRY METHOD 07/23/2024 1:58 PM [facility] Calcium 9.1 8.5 - 10.5 mg/dL LAB CHEMISTRY METHOD 07/23/2024 1:58 PM [facility] AST (SGOT) 23 10 - 42 unit/L LAB CHEMISTRY METHOD 07/23/2024 1:58 PM [facility] ALT (SGPT) 21 10 - 60 unit/L LAB CHEMISTRY METHOD 07/23/2024 1:58 PM [facility] Alkaline Phosphatase 96 42 - 121 unit/L LAB CHEMISTRY METHOD 07/23/2024 1:58 PM [facility] Total Protein 6.9 6.0 - 8.0 g/dL LAB CHEMISTRY METHOD 07/23/2024 1:58 PM [facility] Albumin 3.1(L) 3.2 - 5.0 g/dL LAB CHEMISTRY METHOD 07/23/2024 1:58 PM [facility] Total Bilirubin 0.5 0.0 - 1.4 mg/dL LAB CHEMISTRY METHOD 07/23/2024 1:58 PM [facility] Blood Venous blood specimen / Unknown Venipuncture / Unknown 07/23/2024 8:56 AM EST 07/23/2024 10:27 AM EST us Jagjit JOHNSON LAB BLOOD ORDERABLES Final Re sult [facility] [address] [place] [address], * (ABNORMAL) Complete blood count (07/23/2024 8:56 AM EST) [facility] WBC 6.5 4.8 - 10.8 K/mcL LAB HEMETOLOGY METHOD 07/23/2024 12:33 PM [facility] RBC 4.60 4.50 - 5.50 M/mcL LAB HEMETOLOGY METHOD 07/23/2024 12:33 PM [facility] Hemoglobin 12.7(L) 13.5 - 17.5 g/dL LAB HEMETOLOGY METHOD 07/23/2024 12:33 PM [facility] Hematocrit 39.8(L) 42.0 - 54.0 % LAB HEMETOLOGY METHOD 07/23/2024 12:33 PM [facility] MCV 86.3 79.0 - 98.0 FL LAB HEMETOLOGY METHOD 07/23/2024 12:33 PM [facility] MCH 27.5 27.0 - 32.0 pcg LAB HEMETOLOGY METHOD 07/23/2024 12:33 PM [facility] MCHC 31.9(L) 32.0 - 37.0 g/dL LAB HEMETOLOGY METHOD 07/23/2024 12:33 PM [facility] RDW 13.8 11.0 - 15.0 % LAB HEMETOLOGY METHOD 07/23/2024 12:33 PM [facility] Platelets 280 130 - 400 K/mcL LAB HEMETOLOGY METHOD 07/23/2024 12:33 PM [facility] MPV 9.1 7.0 - 11.0 FL LAB HEMETOLOGY METHOD 07/23/2024 12:33 PM [facility] NRBC 0.0 <1.0 % LAB HEMETOLOGY METHOD 07/23/2024 12:33 PM [facility] NRBC Absolute 0.00 <0.10 K/mcL LAB HEMETOLOGY METHOD 07/23/2024 12:33 PM EST [facility] Blood Venous blood specimen / Unknown Venipuncture / Unknown 07/23/2024 8:56 AM EST 07/23/2024 10:27 AM EST us Jagjit JOHNSON LAB BLOOD ORDERABLES Final Re sult [facility] [address] [place] [address], documented in this encounter Visit Diagnoses Diagnosis [...] this encounter Care Teams Sugar Cane Planter Relationship Specialty Start Date End Date Jagjit Hancock PA [address] [place] [phone] PCP - General Physician Wood Craftsman 07/23/24 documented as of this encounter
--- OUTSIDE RECORDS SUMMARY | 2025-04-06 14:43 | XMS_ITS | Clinical Summary ---
Author Organization [address] Address [address] [place] [phone] Phone Care Team Providers Care Guardian Ad Litem Name Role Phone Jagjit Hancock Primary Care [...] unspecified Type 2 diabetes mellitus without complications ([facility]) Vitamin D deficiency, unspecified Cellulitis, unspecified from [...] LAB CHEMISTRY METHOD 08/18/2024 12:46 PM EDT [facility] ALT (SGPT) 34 10 - 60 unit/L LAB CHEMISTRY METHOD 08/18/2024 12:46 PM EDT [facility] Alkaline Phosphatase 93 42 - 121 unit/L LAB CHEMISTRY METHOD 08/18/2024 12:46 PM EDT [facility] Total Protein 7.2 6.0 - 8.0 g/dL LAB CHEMISTRY METHOD 08/18/2024 12:46 PM EDT [facility] Albumin 3.4 3.2 - 5.0 g/dL LAB CHEMISTRY METHOD 08/18/2024 12:46 PM EDT [facility] Total Bilirubin 0.6 0.0 - 1.4 mg/dL LAB CHEMISTRY METHOD 08/18/2024 12:46 PM EDT [facility] Blood Venous blood specimen / Unknown Venipuncture / Unknown 08/18/2024 7:18 AM EDT 08/18/2024 11:03 AM EDT us Rebecca Gomez MD LAB BLOOD ORDERABLES Final Resul t [facility] [address] [place] [address], * Lipid panel with reflex to direct LDL (07/23/2024 8:56 AM EST) Cholesterol 117 0 - 200 mg/dL LAB CHEMISTRY METHOD 07/23/2024 1:58 PM EST [facility] Triglycerides 136 0 - 150 mg/dL LAB CHEMISTRY METHOD 07/23/2024 1:58 PM [facility] HDL 53 >=40 mg/dL LAB CHEMISTRY METHOD 07/23/2024 1:58 PM EST [facility] LDL Calculated 37 0 - 100 mg/dL LAB CHEMISTRY METHOD 07/23/2024 1:58 PM EST [facility] VLDL Cholesterol Quique 27.2 mg/dL LAB CHEMISTRY METHOD 07/23/2024 1:58 PM EST [facility] Non HDL Chol. (LDL+VLDL) 64 <145 mg/dL LAB CHEMISTRY METHOD 07/23/2024 1:58 PM EST [facility] Chol/HDL Ratio 2.2 0.0 - 4.4 LAB CHEMISTRY METHOD 07/23/2024 1:58 PM EST [facility] Blood Venous blood specimen / Unknown Venipuncture / Unknown 07/23/2024 8:56 AM EST 07/23/2024 10:27 AM EST Jagjit JOHNSON LAB BLOOD ORDERABLES Final Re sult Performing Organization Address [facility]/ZIP Co de Phone Number [facility] [address] [place] [address], [place] [phone] * (ABNORMAL) Hemoglobin A1c (07/23/2024 8:56 AM EST) Hemoglobin A1C 6.6(H) <6.5 % LAB CHEMISTRY METHOD 07/23/2024 9:50 PM EST [facility] Mean Bld Glu Estim. 143 mg/dL LAB CHEMISTRY METHOD 07/23/2024 9:50 PM EST [facility] Blood Venous blood specimen / Unknown Venipuncture / Unknown 07/23/2024 8:56 AM EST 07/23/2024 10:27 AM EST Jagjit JOHNSON LAB BLOOD ORDERABLES Final Re sult Performing Organization Address City/[facility]/ZIP Co de Phone Number [facility] [address] [place] [address], [place] [phone] from Last 3 Months or Most Recently Relevant to Health Maintenance Insurance MEDICARE [facility] Care Teams Guardian Ad Litem Relationship Specialty Start Date End Date Jagjit Hancock PA [address] [place] [phone] PCP - General Physician Supervisor Phosphatic Fertilizer 07/23/24
--- OUTSIDE RECORDS SUMMARY | 2025-04-06 14:43 | XMS_ITS | Patient Health Record ---
[facility] Organization [facility] Address [address] [place] [address] Care Team Providers Care Family And Marriage Counsellor Name Role Phone Marina MCDANIELS, Nubia Zelaya Primary Care Provider Un available Black, Sussy Unavailable [phone] Allergies No Known Allergies Results Component Value [...] Problem Acquired hammer toe of right foot (7393685914040457 ) Other hammer toe(s) (acquired), right foot (M20.41) Active confirmed Problem Acquired hammer toe of left foot ([id number] ) Other hammer toe(s) (acquired), left foot (M20.42) Active confirmed Problem Polyneuropathy due to type 2 diabetes mellitus (186124659) Type 2 diabetes mellitus with diabetic polyneuropathy (E11.42) Active confirmed Vital Signs Blood pressure diastolic 80 mm Hg 03/12/2025 Height 6 ft in 03/12/2025 Blood pressure systolic 120 mm Hg 03/12/2025 Weight 192 lbs 03/12/2025 BMI 26.04 kg/m2 03/12/2025 Procedures Procedure Date Ordered Date Performed Result Body Sit e 55189-LQBQMDR NAIL, 6 OR MORE 06/02/2024 N/A 47023-FEJC SKIN LESIONS, OVER 4 06/02/2024 N/A 89896-USFZAOY NAIL, 6 OR MORE 09/01/2024 N/A 35322-HUDE SKIN LESIONS, OVER 4 09/01/2024 N/A 00872-JURTWLK NAIL, 6 OR MORE 12/11/2024 N/A 01376-PIQJ SKIN LESIONS, OVER 4 12/11/2024 N/A 60279-YPXSYXF NAIL, 6 OR MORE 03/12/2025 N/A 30628-FGUX SKIN LESIONS, OVER 4 03/12/2025 N/A Encounters Encounter Location Date Provider Diagnosis [address] [address] 06/02/2024 Sussy Black Type 2 diabetes mellitus with diabetic polyneuropathy E11.42 and Tinea unguium B35.[address] [address] 09/01/2024 Sussy Black Type 2 diabetes mellitus with diabetic polyneuropathy E11.42 ; Tinea unguium B35.1 and Tinea pedis of both feet B35.[address] [address] 12/11/2024 Sussy Black Type 2 diabetes mellitus with diabetic polyneuropathy E11.42 and Tinea unguium B35.[address] [address] 03/12/2025 Sussy Black Type 2 diabetes mellitus with diabetic polyneuropathy E11.42 ; Other hammer toe(s) (acquired), right foot M20.41 ; Tinea unguium B35.1 and Other hammer toe(s) (acquired), left foot M20.[address] [address] 06/03/2024 Sussycharlene Lowery [facility] [address] [place] [address] 08/26/2024 Sussycharlene Lowery [facility] [address] [place] [address] 09/10/2024 Sussy Lowery [facility] Encounter Date Diagnosis (ICD Code) Assessment Notes [...] Date *Wound Culture 12/18/2019 *Wound Culture 11/24/2021 48263-CSFDJEM NAIL, 6 OR MORE 08/25/2021 31443-QPAZADL NAIL, 6 OR MORE 12/18/2019 73765-YJDSTGV NAIL, 6 OR MORE 11/24/2021 10784-FWAYLOE NAIL, 6 OR MORE 02/23/2022 50143-JGQHHCQ NAIL, 6 OR MORE 06/08/2022 61176-CGYTLCN NAIL, 6 OR MORE 09/11/2022 05053-JFURTIT NAIL, 6 OR MORE 12/11/2022 89622-NXBXYSV NAIL, 6 OR MORE 09/18/2019 20492-MVLECCC NAIL, 6 OR MORE 02/23/2020 28955-VZLEQGB NAIL, 6 OR MORE 05/13/2020 80232-QPCHMYC NAIL, 6 OR MORE 08/12/2020 56397-JGRTRUQ NAIL, 6 OR MORE 11/18/2020 64378-ZYPJASK NAIL, 6 OR MORE 02/17/2021 57833-HLWBGIA NAIL, 6 OR MORE 03/15/2023 74796-FHILSXX NAIL, 6 OR MORE 06/21/2023 25005-AOVNTJO NAIL, 6 OR MORE 10/25/2023 53641-QXSDJKC NAIL, 6 OR MORE 02/14/2024 46228-TYKQNOG NAIL, 6 OR MORE 06/02/2024 57439-EZYJIUD NAIL, 6 OR MORE 09/01/2024 72710-VYJXTWH NAIL, 6 OR MORE 12/11/2024 22156-YXRMEZG NAIL, 6 OR MORE 03/12/2025 26474-WETQVYK NAIL, 6 OR MORE 03/06/2019 82905-CJZRGZK NAIL, 6 OR MORE 06/05/2019 50344-XEKMLVZ NAIL, 6 OR MORE 02/21/2018 85387-AZSVUIY NAIL, 6 OR MORE 05/30/2018 51776-DJSQYWW NAIL, 6 OR MORE 08/29/2018 07341-OLHHTYI NAIL, 6 OR MORE 12/05/2018 06098-SEPFYWF NAIL, 6 OR MORE 12/22/2015 96304-METFYEJ NAIL, 6 OR MORE 03/23/2016 47456-XSJYVMC NAIL, 6 OR MORE 06/22/2016 99380-XICIMKT NAIL, 6 OR MORE 10/05/2016 15701-DSOEUJS NAIL, 6 OR MORE 01/04/2017 68263-JHNZXVS NAIL, 6 OR MORE 05/10/2017 69099-IAOTPWY NAIL, 6 OR MORE 08/09/2017 53715-KENUBEL NAIL, 6 OR MORE 11/23/2017 28515-QSNNARV NAIL, 6 OR MORE 04/17/2011 22228-IBWMYZL NAIL, 6 OR MORE 07/20/2011 49557-UXGHQHZ NAIL, 6 OR MORE 08/17/2011 89292-VYYGEPI NAIL, 6 OR MORE 09/19/2011 83495-LKQOXWG NAIL, 6 OR MORE 12/25/2011 71729-GQTTJUZ NAIL, 6 OR MORE 03/13/2012 04640-FAVSIIE NAIL, 6 OR MORE 06/19/2012 48651-DFPBEBR NAIL, 6 OR MORE 09/16/2012 21900-JUKZIUK NAIL, 6 OR MORE 12/04/2012 05583-TLZNDJC NAIL, 6 OR MORE 03/12/2013 72961-XLOYUPH NAIL, 6 OR MORE 06/18/2013 48726-URLUXHF NAIL, 6 OR MORE 09/18/2013 21369-JMLIKZS NAIL, 6 OR MORE 12/18/2013 71735-KACHYJN NAIL, 6 OR MORE 03/19/2014 22645-ODPWXSA NAIL, 6 OR MORE 09/17/2014 99677-HRJVLZO NAIL, 6 OR MORE 12/17/2014 01907-WSFADNR NAIL, 6 OR MORE 06/18/2014 55660-RPMSNEQ NAIL, 6 OR MORE 03/24/2015 64221-DRFZMXA NAIL, 6 OR MORE 06/17/2015 68231-NZIMRWL NAIL, 6 OR MORE 09/16/2015 79267-Jfogpcja Plate 06/18/2014 95962-Lmjcqlef Plate 12/17/2014 24127-Gvdwaujy Plate 12/18/2013 00355-Vxfbvxnr Plate 09/18/2013 05046-Clokqhxk Plate 03/12/2013 69324-Jukywjfo Plate 01/04/2017 09439-Mwqtdxrp Plate 06/21/2023 97452- Debride <25 sq cm 02/14/2024 97783- Debride <25 sq cm 08/25/2021 92339- Debride <25 sq cm 08/12/2020 08043- Debride <25 sq cm 04/05/2020 26623- Debride <25 sq cm 05/13/2020 70580- Debride <25 sq cm 02/23/2020 58910- Debride <25 sq cm 06/08/2022 50125- Debride <25 sq cm 11/24/2021 76682- Debride <25 sq cm 12/08/2021 02266- Debride <25 sq cm 01/05/2022 21042- Debride <25 sq cm 02/23/2022 80832- Debride <25 sq cm 12/04/2012 02805- Debride <25 sq cm 12/25/2011 18319- Debride <25 sq cm 09/19/2011 58640- Debride <25 sq cm 08/17/2011 05280- Debride <25 sq cm 07/20/2011 22697- Debride <25 sq cm 12/18/2013 68340- Debride <25 sq cm 03/19/2014 65424-PFOUVML SKIN/TISSUE 12/18/2019 72990-GINQRYE SKIN/TISSUE 01/05/2020 58269-RUVAWBV SKIN/TISSUE 01/19/2020 58668-TMIRQMZ SKIN/TISSUE 02/05/2020 60649-VLWY SKIN LESIONS, OVER 4 09/18/19 20 00683-MJRN SKIN LESIONS, OVER 4 06/05/19 20 02805-RTRG SKIN LESIONS, OVER 4 03/06/20 19 75383-KNQW SKIN LESIONS, OVER 4 12/06/19 19 91775-RCKZ SKIN LESIONS, OVER 4 08/30/19 19 86013-JMMG SKIN LESIONS, OVER 4 05/30/19 19 09753-PEDB SKIN LESIONS, OVER 4 01/05/20 17 50010-XDNH SKIN LESIONS, OVER 4 02/22/20 18 15192-ODYZ SKIN LESIONS, OVER 4 11/24/19 18 52537-UNJQ SKIN LESIONS, OVER 4 05/10/20 17 20795-OZSM SKIN LESIONS, OVER 4 08/10/19 18 04797-CJHF SKIN LESIONS, OVER 4 02/24/20 76676-TPCO SKIN LESIONS, OVER 4 11/25/19 22 91753-CCXJ SKIN LESIONS, OVER 4 06/08/19 23 19748-JSDF SKIN LESIONS, OVER 4 09/12/19 23 68775-MBMB SKIN LESIONS, OVER 4 03/15/20 23 80783-SPQF SKIN LESIONS, OVER 4 12/12/19 23 61647-QQOI SKIN LESIONS, OVER 4 02/23/20 20 50348-HXYI SKIN LESIONS, OVER 4 12/18/19 20 04532-XKSV SKIN LESIONS, OVER 4 05/13/20 20 00464-LVPA SKIN LESIONS, OVER 4 08/13/19 21 13021-AODW SKIN LESIONS, OVER 4 11/19/19 21 59399-VFYG SKIN LESIONS, OVER 4 08/26/19 22 31721-HELP SKIN LESIONS, OVER 4 02/18/20 21 63601-YTUR SKIN LESIONS, OVER 4 02/14/20 24 03331-CORY SKIN LESIONS, OVER 4 06/02/19 25 82182-AMBL SKIN LESIONS, OVER 4 06/21/19 24 51246-AQYP SKIN LESIONS, OVER 4 10/25/19 24 83045-GOFG SKIN LESIONS, OVER 4 03/12/20 25 33655-IYVQ SKIN LESIONS, OVER 4 12/12/19 25 88610-DDVL SKIN LESIONS, OVER 4 09/02/19 25 44570-UMXF SKIN LESIONS, 2 TO 4 06/22/19 17 37520-FUHO SKIN LESIONS, 2 TO 4 10/06/19 17 72191-URFX SKIN LESIONS, 2 TO 4 03/23/20 16 75862-WVBT SKIN LESIONS, 2 TO 4 12/22/19 16 78946-KQVH SKIN LESIONS, 2 TO 4 12/18/19 15 42678-SYGZ SKIN LESIONS, 2 TO 4 03/24/20 15 94240-FTJQ SKIN LESIONS, 2 TO 4 09/16/19 16 86166-KZWA SKIN LESIONS, 2 TO 4 06/17/19 16 Next Appt Details Provider Name:Sussy Lowery , 07/06/2025 02:45:00 PM, [address] [facility], [place], [address], Insurance Providers Payer Name Payer Address Payer Phone Subscriber Number Group Number Insured Name Patient Relationship to Insured Coverage Start Date Coverage End Date Medicare National [employer]t [employer] [address] [facility] [place] [address] [id number] Tobin Bey Self - patient is the insured A[employer] Secondary to Medicare [address] [place] [address] [id number] Tobin Bey Self - patient is [...]
--- OUTSIDE RECORDS SUMMARY | 2025-04-06 14:43 | XMS_ITS | Encounter Summary ---
Author Organization [facility] Address [address] [place] [address] Care Team Providers Care Equipment Operat0R Name Role Phone Jagjit Hancock Primary Care Provider Gigi price Encounter Details Date Type Department Care Team (Late st Contact Info) Description 08/03/2024 Lab Requisition [facility] - Main Lab [address] [place] [phone] Mary Cotter PA [address] [place] [address] Diarrhea, unspecified Social History Tobacco Use Types [...] LAB MICROBIOLOGY METHOD 08/03/2024 12:[address] [facility] Comment: CRITICAL RESULT POSITIVE FOR TOXIN PRODUCING CLOSTRIDIOIDES DIFFICILE, NO ADDITIONAL TESTING IS NECESSARY. REPEAT SAMPLES SHOULD NOT BE SUBMITTED FOR TEST OF CURE. Stool Rectum structure / Unknown Non-blood Collection / Unknown 08/02/2024 7:40 PM EST 08/03/2024 11:45 AM EDT Mary [facility] MICROBIOLOGY - GENERAL ORD ERABLES Final Result Performing Organization Address City/[facility]/ZIP Co de Phone Number [facility] [address] [place] [address], [place] [phone] * Clostridium difficile toxin (08/02/2024 7:40 PM EST) C difficile Toxins A+B, EIA 08/03/2024 11:45 AM EDT [facility] Comment:Refer to C. difficil e PCR assay for results. Stool Rectum structure / Unknown Non-blood Collection / Unknown 08/02/2024 7:40 PM EST 08/03/2024 10:19 AM EDT Mary [facility] MICROBIOLOGY - GENERAL ORD ERABLES Final Result Performing Organization Address [facility] Co de Phone Number [facility] [address] [place] [address], [place] [phone] documented in this encounter Visit Diagnoses Diagnosis Diarrhea, unspecified documented in this encounter Additional Health Concerns Infection Onset Date Last Indicated Resolved Time C. difficile 08/02/2024 08/02/2024 08/26/2024 7:06 PM EDT C. difficile Rule-Out 08/03/2024 08/02/20242024 11:45 AM EDT documented as of this encounter Care Teams Equipment Operat0R Relationship Specialty Start Date End Date Jagjit Hancock PA [address] [place] [address] [place] [phone] PCP - General Physician Stationary Steam Engineer 07/23/24 documented as of this encounter
--- OUTSIDE RECORDS SUMMARY | 2025-04-06 14:43 | XMS_ITS | Encounter Summary ---
Author Organization [facility] Address [address] [place] [address] Care Team Providers Care Hostel Parent Name Role Phone Jagjit Hancock Primary Care Provider Gigi price Encounter Details Date Type Department Care Team (Latest Contact Info) Description 07/26/2024 Lab Requisition [facility] - Main Lab [address] [place] [phone] Rebecca Gomez MD [address] [place] [phone] Essential (primary) hypertension; Anemia, unspecified; Cellulitis, unspecified; [...] Resul t [facility] [address] [place] [address], * (ABNORMAL) Complete blood count (07/28/2024 7:32 [...] Resul t [facility] [address] [place] [address], documented in this encounter Visit Diagnoses Diagnosis [...] documented as of this encounter Care Teams Hostel Parent Relationship Specialty Start Date End Date Jagjit Hancock PA [address] [place] [address] [place] [phone] PCP - General Physician Medical Office Specialist 07/23/24 documented as of this encounter
== END 2025-04-06 13:35 | disposition home or self-care (01) ==
LOC: HO.HMCC 12:34
PROVIDERS: PCP Internal Medicine; Visit Provider Internal Medicine
DX: E11.9 Type 2 diabetes mellitus without complications (principal); E78.5 Hyperlipidemia, unspecified; I10 Essential (primary) hypertension; N18.31 Chronic kidney disease, stage 3a; M16.11 Unilateral primary osteoarthritis, right hip; L98.419 Non-pressure chronic ulcer of buttock with unspecified severity

== ENCOUNTER → 2025-04-06 12:34 | Outpatient (BNVA) | payer MEDICARE, SELFPAY | PROVIDERS: PCP Internal Medicine; Visit Provider Internal Medicine | DX: E78.5 Hyperlipidemia, unspecified (principal); I12.9 Hypertensive chronic kidney disease with stage 1 through stage 4 chronic kidney disease, or unspecified chronic kidney disease; E11.22 Type 2 diabetes mellitus with diabetic chronic kidney disease; N18.31 Chronic kidney disease, stage 3a; M16.11 Unilateral primary osteoarthritis, right hip; L98.419 Non-pressure chronic ulcer of buttock with unspecified severity | CPT/HCPCS: 99212 ==